=== PATIENT | male | born 1950 | race Caucasian/White ===

== ENCOUNTER 2025-02-17 14:28 | Inpatient (IN) | payer MEDICARE, SELFPAY ==
[2025-02-17] VITALS (9 sets, daily range): BP systolic 94–142; BP diastolic 65–80; PULSE 66–108; RESP 12–20; TEMP 36.6–36.9; O2SAT 95–100
--- NOTE | ~2025-02-17 | US_ITS ---
US renal BI 02/18/2025 08:51 Procedure: Realtime transabdominal ultrasound of the kidneys and bladder. Indication: Hydronephrosis Comparison: CT dated 02/17/2025 Findings: There is moderate right hydronephrosis. Renal echotexture is normal. There is a small hypoe choic structure mid pole of the right kidney measuring 11 mm, likely benign cysts. The left kidney is surgically absent. Right kidney measures 13.4 x 6.7 x 8 cm. Impression: 1: Enlarged right kidney with moderate hydronephrosis. Possible 11 mm cyst. Reviewed, dictated and finalized at location B. Impression: 1: Enlarged right kidney with moderate hydronephrosis. Possible 11 mm cyst.
--- NOTE | ~2025-02-17 | XR_ITS ---
EXAMINATION: XR chest 2V 02/17/2025 16:43 INDICATION: Fever and chills. PROCEDURE: 2 view chest COMPARISON: No prior studies for comparison. FINDINGS: The lungs are clear. The cardiomediastinal silhouette is within normal limits. There are no pleural effusions. There is no pneumothorax suspected. IMPRESSION: 1: NO ACUTE CARDIOPULMONARY DISEASE. Reviewed, dictated and finalized at location B.
--- NOTE | ~2025-02-17 | CT_ITS ---
CLINICAL INDICATION: Repeat assessment for hydronephrosis, detected on CT examination dated 02/17/2025 at 6:33 PM. COMPARISON: Renal ultrasound performed [address] of the chest abdomen and pelvis performed 36 hours earlier.. TECHNIQUE: Multiple contiguous axial images of the abdomen and pelvis were performed without the admi nistration of intravenous contrast The dose-length product (DLP) was 401.73 mGy-cm. Automated exposure control and iterative reconstruction technique were employed. FINDINGS/OBSERVATIONS: Visualized lower thorax: Interval development of small bilateral pleural effusions, right greater than left with adjacent comp ressive atelectasis. The bilateral lung bases are otherwise clear. The heart is of normal size, without pericardial effusion. Small hiatal hernia is present. Liver: The liver demonstrates homogeneous attenuation and is not enlarged measuring 14 cm in longitudinal di mension. Gallbladder and biliary system: The gallbladder is only minimally distended, and otherwise unremarkable. Pancreas: Limited evaluation of the pancreas secondary to the lack of intravenous contrast. Spleen: The spleen demonstrates homogeneous attenuation and is enlarged measuring 13 cm in longitudinal dimen ethan. Kidneys: Redemonstration of moderate right-sided hydroureteronephrosis, unchanged from 36 hours earlier withou t a discrete source of obstruction detected. The bladder is decompressed with a Uriarte catheter, limiting its evaluation. A moderate amount of presacral induration is present, possibly the source of patient's distal uretera l obstruction. The left kidney is absent. Adrenal glands: Unremarkable. Gastrointestinal tract: The colon is surgically absent. Appendix: Surgically absent. Vasculature: Unremarkable. Lymph nodes: Limited evaluation without intravenous contrast. Pelvic structures:As above. The prostate gland is either surgically absent or not enlarged. Body wall and musculoskeletal: Significant degenerative disease within the lumbosacral spine with osteophyte formation, disc space narrowing, ankylosis and vacuum phenomena. Small bowel stoma within the lower abdomen, to the left of midline. [employer] for a pain device identified within the left hemipelvis. Multiple clips along the anterior abdominal wall and to the right of midline suggesting prior anterio r abdominal wall reconstruction. IMPRESSION: Redemonstration of significant right-sided hydroureteronephrosis with induration at the level of the bladder in the presacral space with extension anteriorly, possibly the source of patient's obstructio n. Remainder of the examination is grossly unchanged from previous study performed 36 and 24 hours earli er. Reviewed, dictated and finalized at location A. IMPRESSION: Redemonstration of significant right-sided hydroureteronephrosis with induratio n at the level of the bladder in the presacral space with extension anteriorly, possibly the source of patient's obstruction. Remainder of the examination is grossly unchanged from previous study performed 36 and 24 hours earlier.
--- NOTE | ~2025-02-17 | CT_ITS ---
CLINICAL INDICATION: Acute renal failure, transaminitis, leukocytosis COMPARISON: None. TECHNIQUE: Multiple contiguous axial images of the chest, abdomen and pelvis were performed without t he administration of intravenous contrast The dose-length product (DLP) was 465.72 mGy-cm. Automated exposure control and iterative reconstruction technique were employed. FINDINGS/OBSERVATIONS: LUNG: The lungs are clear. MEDIASTINUM: Limited evaluation without intravenous contrast. HEART: The heart is of normal size, without pericardial effusion. SOFT TISSUES OF THE CHEST: Unremarkable. Liver: The liver demonstrates homogeneous attenuation and is not enlarged measuring 14 cm in longitudinal di mension. Gallbladder and biliary system: The gallbladder is only minimally distended, and otherwise unremarkable. Pancreas: Limited evaluation of the pancreas secondary to the lack of intravenous contrast. Spleen: The spleen demonstrates homogeneous attenuation and is not enlarged measuring 13 cm in longitudinal d imension. Kidneys: The left kidney is surgically absent. Significant right-sided hydroureteronephrosis extending to the bladder without an obstructing stone i dentified. The bladder is significantly decompressed with surrounding inflammatory change. Adrenal glands: Unremarkable. Gastrointestinal tract: The colon is surgically absent. Appendix: Surgically absent. Vasculature: Unremarkable. Lymph nodes: Limited evaluation without intravenous contrast. Pelvic structures: As above. Body wall and musculoskeletal: Significant degenerative disease within the lumbosacral spine with osteophyte formation, disc space n arrowing, ankylosis and vacuum phenomena. Small bowel stoma to the left of midline. IMPRESSION: Significant right-sided hydroureteronephrosis without an obstructing stone visualized. Reviewed, dictated and finalized at location A. IMPRESSION: Significant right-sided hydroureteronephrosis without an obstructing stone visu alized.
--- NOTE | ~2025-02-17 | XR_ITS ---
INTRAOPERATIVE FLUOROSCOPY: CLINICAL HISTORY: 74 years old Male; STONE PROCEDURE COMMENTS: Limited intraoperative fluoroscopy of the retroperitoneum and pelvis was performe d. CUMULATIVE DOSE: 27 mGy FLUOROSCOPY TIME: 82 seconds FINDINGS/IMPRESSION: Please refer to operative note for further details. Reviewed, dictated and finalized at location A.
--- OUTSIDE RECORDS SUMMARY | 2025-02-17 14:46 | XMS_ITS | Encounter Summary ---
Author Organization [facility] Healthcare Address [address] [place] [address] Care Team Providers Care Carpenter Prototype Name Role Phone Justin Avery MD Unavailable [phone] Benton Loyd MD Primary Care Provider [phone] Deng Fagan MD Unavailable [phone] Padmini Gonzalez MD Unavailable [phone] Nathaniel Merchant MD Unavailable [phone] Encounter Details Date Type Department Care Team (Late st Contact Info) Description 02/09/2025 Results Follow-Up [facility] Medical Group Convenient Care at [address] [address] Jackson Childers NP [address] [place] [address] [address] [place] [address] Social History Tobacco Use Types Packs/Day Years Used Date Smoking Tobacco: Never Smokeless Tobacco: Never Alcohol Use Standard Drinks/Week Comments Yes 1 (1 standard drink = 0.6 oz pur e alcohol) weekly AUDIT-C Answer Date Recorded Q1: How often do you have a drink containing alc ohol? Monthly or less 08/13/2022 Q2: How many drinks containi ng alcohol do you have on a typical day when you are drinking? 1 or 2 08/13/2022 Q3: How often do you have si x or more drinks on one occasion? 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 Pt verbalized understanding. * Result Encounter Note - Deysi Medeiros LPN - 02/13/2025 5:33 PM CDT LVM for pt to return call to clinic to notify them of labs results. * Result Encounter Note - Jackson Childers NP - 02/09/2025 7:53 PM CDT Please notify patient that urine culture was negative. Patient can stop taking antibiotics if they were prescribed at the time of visit. If s/s are still present patient should follow up PCP. documented in this encounter Plan of Treatment Not on file documented as of this encounter Visit Diagnoses Not on filedocumented in this encounter Care Teams Carpenter Prototype Relationship Specialty Start Date End Date Benton Loyd MD [address] [place], [place] [address] PCP - General Internal Medicine 08/24/20 Justin Avery MD Surgeon Colon and Rectal Surgery 10/18/19 Deng Fagan MD [address] [place] [address] Consulting Physician Urology 10/25/20 Padmini Gonzalez MD [address] [address] Consulting Physician Urology 11/09/22 Nathaniel Merchant MD 1 [facility] [place] [address] Consulting Physician Gastroenterology 11/09/22 documented as of this encounter
--- OUTSIDE RECORDS SUMMARY | 2025-02-17 14:46 | XMS_ITS | Clinical Summary ---
Author Organization [facility] Address [address] [place] [address] Care Team Providers Care Front Worker Name Role Phone Unavailable Primary Care Provider Unavailabl e Social History Tobacco Use Types Packs/Day Years Used Date Smoking Tobacco: Never Assessed Sex and Gender Information Value Date Recorded Sex Assigned at Not on file Legal Sex Male 4:35 PM CDT Gender Identity Not on file Sexual Orientation Not on file Plan of Treatment Health Maintenance Due Date Last Done Comments Colorectal Cancer Screening Colonoscopy (10 Years) 1950 Hepatitis C 1968 DTaP, Tdap and Td Vaccines ( 1 - Tdap) 1969 Zoster Vaccines (1 of 2) 2000 Pneumococcal Vaccine: 65+ Ye ars (1 of 1 - PCV) 2015 COVID-19 Vaccine ( - 2023-2 5 season) 2024 Influenza Adult (#1) 2024 RSV Immunization or 60+ Years (1 - 1-dose 75+ series) 2025 Meningococcal B Vaccine Aged Out No l onger eligible based on patient's age to complete this topic Meningococcal Vaccine Aged Out No nick raegan eligible based on patient's age to complete this topic RSV Immunizations Under 20 Months Aged Out No longer eligible based on patient's age to complete this topic
--- OUTSIDE RECORDS SUMMARY | 2025-02-17 14:46 | XMS_ITS | Clinical Summary ---
Author Organization [facility] Address [address] [place] [address] Care Team Providers Care Costume Design Teacher Name Role Phone Justin Avery MD Unavailable Benton Loyd MD Primary Care Provider [phone] Deng Fagan MD Unavailable Padmini Gonzalez MD Unavailable [phone] Nathaniel Merchant MD Unavailable Allergies Active Allergy Reactions Criticality Noted Date Comments Unclassified Drug Unknown,Other (See comments) Low 08/24/2023 due to patient only having one kidney Medications amLODIPine (NORVASC) 10 mg tabletIndicati ons:hypertensi on Take 1 tablet (10 mg total) by mouth every morning 3 09/18/20 18 Active atorvastatin (LIPITOR) 20 mg tabletIndicati ons:hyperlipid emia Take 1 tablet (20 mg total) by mouth every morning 2 07/26/20 18 Active loperamide (IMODIUM) 2 mg capsuleIndicat ions:diarrhea, ileostomy Take 2 capsules (4 mg total) by mouth 2 (two) times a day 05/13/20 07 Active omeprazole (PriLOSEC) 20 mg capsuleIndicat ions:Stress Ulcer Prophylaxis,Tr eatment of Non-Bleeding Gastric Disorder,gerd Take 1 capsule (20 mg total) by mouth every morning 2 07/15/20 18 Active rOPINIRole (REQUIP) 3 mg tabletIndicati ons:Restless Legs Syndrome Take 1 tablet (3 mg total) by mouth nightly 01/22/20 10 Active JANUVIA 50 mg tabletIndicati ons:type 2 diabetes mellitus Take 1 tablet (50 mg total) by mouth every morning 1 07/26/20 18 Active cyanocobalamin (Vitamin B-12) 500 mcg tabletIndicati ons:Prevention of Vitamin B12 Deficiency Take 2 tablets (1,000 mcg total) by mouth every morning Active cholecalcifero l (VITAMIN D-3) 2,000 unit capsuleIndicat ions:Vitamin D Deficiency Take 0.5 capsules (1,000 Units total) by mouth every morning 01/22/20 10 Active NU-MAG 71.5 mg tablet,delayed release (DR/EC)Indicat ions:hypomagne semia Take 1 tablet by mouth every morning 0 01/10/20 19 Active irbesartan (AVAPRO) 75 mg tabletIndicati ons:hypertensi on Take 1 tablet (75 mg total) by mouth every morning 11/18/20 19 Active acetaminophen (TYLENOL) 500 mg tabletIndicati ons:Pain Take 2 tablets (1,000 mg total) by mouth every 6 (six) hours as needed for pain Active oxyCODONE (ROXICODONE) 5 mg immediate release tabletIndicati ons:Pain Take 1 tablet (5 mg total) by mouth every 4 (four) hours as needed for pain (second line) for up to 5 doses 5 tablet 08/13/20 22 Active senna (SENOKOT) 8.6 mg tablet Take 1 tablet by mouth daily as needed for constipation 30 tablet 08/13/20 22 Active Additional Information Patient not taking.Reported on 11/27/2024 mupirocin (BACTROBAN) 2 % ointmentIndica tions:Minor Bacterial Skin Infections Apply topically 3 (three) times a day 22 g 10/05/20 22 Active sulfamethoxazo le-trimethopri m (BACTRIM DS) 800-160 mg per tablet Take 1 tablet by mouth 2 (two) times a day for 3 days 6 tablet 02/09/20 25 025 Discontinued sulfamethoxazo le-trimethopri m (BACTRIM DS) 800-160 mg per tablet Take 1 tablet by mouth 2 (two) times a day for 5 days 10 tablet 03/12/ 025 Active Problems Problem Noted Date Diagnosed Date Stage 4 chronic kidney disease 01/01/2025 Urge urinary incontinence 06/04/2022 Overview (06/04/2022): Added automatically from request for surgery [id number] OAB (overactive bladder) 06/04/2022 Overview (06/04/2022): Added automatically from request for surgery [id number] 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 Overview (02/15/2020): Added automatically from request for surgery [id number] Ileostomy care 09/23/2017 History of malignant neoplasm of rectum 08/18/20 14 Crohn's disease of rectum 12/07/2009 Encounters Date Type Department Care Team Description 02/09/2025 Results Follow-Up [facility] Medical Group Convenient Care at [address] [address] Jackson Childers NP 02/08/2025 11:26 AM CDT - 02/08/2025 11:59 PM CDT Hospital Encounter [address] [address] Cystitis with hematuria Discharge Disposition: Discharge to home or self care 02/08/2025 8:45 AM CDT Office Visit [facility] Convenient Care at [address] [address] Radha Baca PA Cystitis with hematuria (Primary Dx) 12/13/2024 Telephone [facility] Surgery [address] [place] [address] [address] [place] [address] Shante Porter RMA Test Results 12/12/2024 1:45 PM NUMERICAL CONTROL LATHE OPERATOR Lab [facility] - Lab Collection [address] [place] [address] [address] [place] [address] History of malignant neoplasm of rectum 12/12/2024 12:45 PM NUMERICAL CONTROL LATHE OPERATOR Office Visit [facility] Surgery [address] [place] [address] [address] [place] [address] Justin Avery MD History of malignant neoplasm of rectum (Primary Dx); Stage 4 chronic kidney disease (HCC); 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); Crohn's disease of rectum without complication (HCC) 12/12/2024 9:40 AM NUMERICAL CONTROL LATHE OPERATOR Ancillary Procedure [facility] Imaging at [address] [phone] Acute cough 12/12/2024 9:30 AM NUMERICAL CONTROL LATHE OPERATOR Office Visit [facility] Convenient Care at [address] [phone] Shante Mcclure NP Acute cough (Primary Dx); Acute non-recurrent maxillary sinusitis 11/27/2024 8:00 AM NUMERICAL CONTROL LATHE OPERATOR Office Visit [facility] Convenient Care at [address] [address] Radha Baca PA Post-viral cough syndrome (Primary Dx) 11/20/2024 11:15 AM NUMERICAL CONTROL LATHE OPERATOR Office Visit [facility] Convenient Care at [address] [address] Tara Alonso NP Acute non-recurrent maxillary sinusitis (Primary Dx) from Last 3 Months Immunizations Immunization Administration Dates Next Due DTaP 02/24/2018 H1N1 Inj 08/30/2011 Influenza, Quadrivalent, Hig h Dose, Preservative Free, Intrr 08/29/2021,08/30/2020 Influenza, Trivalent, High D ose, Split, Preservative Free, Intramuscular 11/14/2019,08/27/2019,08/12/2018,09/22,09/18/2016,09/01/2016 Influenza, Trivalent, IM (MDV) 09/21/2017 Influenza, Trivalent, Preser vative Free, Intramuscular 08/30/2015,11/30/2008 Influenza, Unspecified 09/17/2022,2020,08/23/2020,08/27,08/13/2018 Pneumococcal Conjugate PCV 13 04/02/2015 Pneumococcal Polysaccharide PPV23 2018,04/14/2016,10/09/2014,08/30,04/02/2010,11/30/2007 Tdap 02/24/2018 Surgical History Surgery Date Site/Laterality Comments MA REVISION PRIOR HYPOSPADIAS REPAIR DSJ&EXC RCNSTJ Surg Penis Repair Of Hypospadias Cripple - 03/11/05 (Added by TW Conv) MA CYSTOURETHROSCOPY W/INTERNAL URETHROTOMY Cystoscopy With Internal Urethrotomy, Direct Vision - 03/30/07 (Added by TW Conv) MA CYSTOURETHROSCOPY W/STEROID INJECTION STRICTURE Cystoscopy For Urethral Stricture With Steroid Injection - 03/30/07 (Added by TW Conv) MA NJX RETROGRADE URETHROCSTOGRAPY Bladder Injection Procedure For Retrograde Cystourethrogram - 03/30/07 (Added by TW Conv) MA COLECTOMY TOT ABDL W/PROCTECTOMY W/ILEOSTOMY Total Proctocolectomy - 07/21/06 (Added by TW Conv) MA APPENDECTOMY 11/30/1964 - 11/29/1965 Appendectomy - (Added by TW Conv) MA COLCT TOT ABDL W/O PRCTECT W/ILEOST/ILEOPXTS 11/30/2005 - 11/29/2006 Total Abdominal Colectomy With Ileostomy - (Added by TW Conv) ILEOSTOMY Ileostomy Care - (Added by TW Conv) MA NEPHRECTOMY W/PRTL URETERECTOMY W/OPEN RIB RESCJ 11/30/2011 - 11/29/2012 Left Nephrectomy Left - pelvic kidney-----chronic pyelonephritis (Added by TW Conv) KNEE ARTHROPLASTY 11/30/2018 - 11/29/2019 Left MENISCUS SURGERY 11/30/2018 - 11/29/2019 Right SHOULDER ARTHROSCOPY 11/30/2019 - 11/29/2020 Right HYPOSPADIAS CORRECTION 11/30/1955 - 11/29/1956 WISDOM TOOTH EXTRACTION unsure of date Medical History Medical History Date Comments Personal history of malignan t neoplasm of rectum, rectosigmoid junction, and anus Rectal Cancer - (Added by TW Conv) Crohn's disease of large int estine without complication (HCC) Crohn's disease of rectum - (Added by TW Conv) Other specified personal ris k factors, not elsewhere classified History of bacterial food po isoning - 2012 (Added by TW Conv) Hypertension Hematuria Urinary incontinence Erectile dysfunction Kidney stone Diabetes mellitus (HCC) FHx: chemotherapy 2006 Hx of radiation therapy 2006 Family History Medical History Relation Name Comments Diabetes Father Family history of diabetes mellitus - (Added by TW Conv) Diabetes Mother Family history of diabetes mellitus - (Added by TW Conv) Heart attack Mother Family history of acute myocardial infarction - (Added by TW Conv) Diabetes type II Other 1 Type 2 Diab etes Mellitus - (Added by TW Conv) Heart disease Other 2 Heart Disease - (Added by TW Conv) Thyroid disease Other 3 Thyroid Diso rder - (Added by TW Conv) Inflammatory bowel disease Other 4 F amily history of inflammatory bowel disease - (Added by TW Conv) Anesthesia problems Neg Hx Relation Name Status Comments Father Mother Other 1 Other 2 Other 3 Other 4 Social History Tobacco Use Types Packs/Day Years Used Date Smoking Tobacco: Never Smokeless Tobacco: Never Tobacco Cessation:Counseling Given: Not Answered Alcohol Use Standard Drinks/Week Comments Yes 1 [...] on file Legal Sex Male 4:34 PM NUMERICAL CONTROL LATHE OPERATOR Gender Identity Not on file Sexual Orientation Not on file Obstetrics History Last Filed Vital Signs Vital Sign Reading Time Taken Comments Blood Pressure 104/62 02/08/2025 8:49 AM CDT Pulse 86 02/08/2025 8:49 AM CDT Temperature 36.4 C (97.6 F) 02/08/2025 8:49 AM CDT tylenol at 6 am Respiratory Rate 16 02/08/2025 8:49 AM CDT Oxygen Saturation 97% 02/08/2025 8:4 9 AM CDT Inhaled Oxygen Concentration - - Weight 80.7 kg (178 lb) 02/08/2025 8:49 AM CDT Height 175.3 cm (5' 9 ) 12/12/2024 12:0 8 PM NUMERICAL CONTROL LATHE OPERATOR Body Mass Index 26.29 12/12/2024 12:08 PM NUMERICAL CONTROL LATHE OPERATOR Plan of Treatment Health Maintenance Due Date Last Done Comments Colon Cancer Screening-Colonoscopy 1950 Depression Screening 1950 Hepatitis C Screening 1950 Hepatitis B Screening 1968 Zoster Vaccine (1 of 2) 2000 Well Visit 65+ 2015 Fall Risk Assessment 08/14/2023 08/14/2022 Covid-19 Vaccine (2023-2 5 season) 2024 05/05/2022, 10/02/2021, 01/29/2021, Additional history exists Influenza Vaccine (#1) 2024 , 09/06/2021, 08/29/2021, Additional history exists DTaP/Tdap/Td Vaccine (3 - Td or Tdap) 02/25/2028 02/24/2018, 02/24/2018 Pneumococcal vaccine 65+ Completed 019, 04/14/2016, 04/02/2015, Additional history exists Medical Devices Implanted Type Area Medical Support Assistant Device Identifier Shelf Expiration Date Model / Serial / Lot [employer] Generator Neurostimulator Bowel Bladder Recharge Free Interstim X [id number] - [id number] Implanted:Qty: 1 on 08/13/2022 by Padmini Gonzalez MD at [facility] Neurostimulator [employer] 9 [id number] / / [employer] Interstim 28cm Quadripolar Mri Nitrogen Operator Neurostimulator [id number] - Sna - [id number] Implanted:Qty: 1 on 07/30/2022 by Padmini Gonzalez MD at [facility] Other - see comments N/A: Back [employer] 12/19/2023 [id number] / NA / [id number] Description:Lower back Implant pause performed interstim [employer] Interstim 100cm Percutaneous Electrode Insulated Kit [id number] - Sna - [id number] Implanted:Qty: 1 on 07/30/2022 by Padmini Gonzalez MD at [facility] Other - see comments N/A: Back [employer] 04/25/2024 [id number] / NA / [id number] Description:Lower back Implant pause performed interstim Procedures Procedure Name Priority Date/Time Associated Diagnosis Comments URINE CULTURE Routine 02/08/2025 11:26 AM CDT Cystitis with hematuria POCT URINALYSIS DIPSTICK Routine 02/08/2025 8:47 AM CDT Cystitis with hematuria CEA Routine 12/12/2024 1:24 PM NUMERICAL CONTROL LATHE OPERATOR History of malignant neoplasm of rectum XR CHEST PA LATERAL 2 VIEWS Schedule SRAVANI, Read SRAVANI (Appt Today, Awaiting Results) 12/12/2024 9:52 AM NUMERICAL CONTROL LATHE OPERATOR Acute cough POC INFLUENZA A/B, COVID-19 ANTIGEN Routine 12/12/2024 9:31 AM NUMERICAL CONTROL LATHE OPERATOR Acute non-recurrent maxillary sinusitis POCT RAPID STREP Routine 12/12/2024 9:20 AM NUMERICAL CONTROL LATHE OPERATOR Acute non-recurrent maxillary sinusitis from Last 3 Months Results * Urine culture Urine, clean voided (02/08/2025 11:26 AM CDT) Report Final Report: Less than 100,000 colonies/mL (clinically insignificant growth based on current clinical standards) Comment:Testing performed by : [facility], [address] [place] [address] Organism (CLINICALLY INSIGNIFICANT GROWTH JUSTINE Urine, clean voided 02/08/2025 11:26 AM CDT 02/08/2025 6:04 PM CDT Narrative JUSTINE CARSON - 02/09/2025 7:50 PM CDT Testing performed by [facility] Microbiology Laboratory ([phone]) Shante Mcclure NP LAB MICROBIOLOGY - GENERAL ORDERABLES Final Result JUSTINE [address] Department [place] [address] * (ABNORMAL) POCT urinalysis dipstick (02/08/2025 8:47 AM CDT) Color, Urine, POC Dark Yellow Clarity, ur, POC Cloudy(A) Clear Glucose, ur, POC Negative Negative MG/DL Bilirubin, ur, POC Negative Negative, Small, Moderate, Large Ketones, ur, POC Negative Negative Specific [place], POC 1.025 1.003 - 1.030 Blood, ur, POC Large(A) Negative pH, ur, POC 5.5 5.0 - 8.0 Protein, ur, POC 300.(A) Negative Urobilinogen, urine, POC 0.2 0.2 - 1.0 mg/dL Nitrite, ur, POC Negative Negative Leukocytes, ur, POC Small(A) Negative Lot Number [id number] Urine 02/08/2025 8:47 AM CDT us Shante Mcclure NP POINT OF CARE TEST ORDERAB LES Final Result * CEA (12/12/2024 1:24 PM NUMERICAL CONTROL LATHE OPERATOR) CEA 0.8 <=5.0 ng/mL Comment: Interpretive Data: Reference Range: Non-Smokers: 0.0 5.0 ng/mL Smokers: 0.0 6.5 ng/mL The Juliet CEA assay procedure was used. Results from different manufacturers or methods may not be comparable. Serial testing should be performed using the same method. Current interpretive data was last revised 2022. Blood 12/12/2024 1:24 PM NUMERICAL CONTROL LATHE OPERATOR 12/12/2024 2:00 PM NUMERICAL CONTROL LATHE OPERATOR us Justin Avery MD LAB BLOOD ORDERABLES Final R esult [facility] Department [place] [address] * XR Chest Pa Lateral 2 Views (12/12/2024 9:52 AM NUMERICAL CONTROL LATHE OPERATOR) Anatomical Region Laterality Modality Body, Chest N/A Digital Radiogra phy 12/12/2024 1:02 PM NUMERICAL CONTROL LATHE OPERATOR Narrative 12/12/2024 1:03 PM NUMERICAL CONTROL LATHE OPERATOR EXAM DESCRIPTION: XR CHEST PA LATERAL 2 VIEWS REASON FOR STUDY: cough Pt complains of cough for six weeks. No surgery to heart, lungs, or chest. Non-smoker. TECHNIQUE: Two views COMPARISON: 07/30/2006 FINDINGS: Heart size and vascularity appear normal. Aortic arch well-defined on the left. Lungs are well expanded without consolidation, effusion or pneumothorax. Bony hypertrophic changes obscures the apices. Moderate thoracolumbar scoliosis and degenerative changes thoracic spine. IMPRESSION: No acute findings. THIS IS AN ELECTRONICALLY VERIFIED FINAL REPORT 12/12/2024 1:03 PM - Electronically signed by Pro Marcus M.D. RB T: Report ID: [id number] Reading Location: [id number] Procedure Note Pro Marcus MD - 12/12/2024 EXAM DESCRIPTION: XR CHEST PA LATERAL 2 VIEWS REASON FOR STUDY: cough Pt complains of cough for six weeks. No surgery to heart, lungs, or chest. Non-smoker. TECHNIQUE: Two views COMPARISON: 07/30/2006 FINDINGS: Heart size and vascularity appear normal. Aortic arch well-defined on the left. Lungs are well expanded without consolidation, effusion or pneumothorax. Bony hypertrophic changes obscures the apices. Moderate thoracolumbar scoliosis and degenerative changes thoracic spine. IMPRESSION: No acute findings. THIS IS AN ELECTRONICALLY VERIFIED FINAL REPORT 12/12/2024 1:03 PM - Electronically signed by Pro Marcus M.D. RB T: Report ID: [id number] Reading Location: [place] [address] Shante Mcclure NP IMG XR PROCEDURES Final Re sult * POC Influenza A/B, COVID-19 antigen (12/12/2024 9:31 AM NUMERICAL CONTROL LATHE OPERATOR) Influenza A Ag, POC Negative Negative [facility] Influenza B Ag, POC Negative Negative [facility] COVID-19 Ag POC Presumptive Negative Presumptive Negative, Invalid [facility] Nasal 12/12/2024 9:31 AM NUMERICAL CONTROL LATHE OPERATOR Shante Mcclure NP POINT OF CARE TEST ORDERAB LES Final Result [facility] [address] * POCT rapid strep A (12/12/2024 9:20 AM NUMERICAL CONTROL LATHE OPERATOR) Rapid Strep A, POC Negative Negative Swab 12/12/2024 9:20 AM NUMERICAL CONTROL LATHE OPERATOR Shante Mcclure NP POINT OF CARE TEST ORDERAB LES Final Result from Last 3 Months Insurance [facility] [employer] [employer] Advance Directives For more information, please contact: [phone] Documents on File Type Date Recorded Patient Display Designer Expl anation ADVANCE DIRECTIVE 10/02/2020 11:54 AM Marcos r of Logistics Clerk-Medical * Full Code (Latest Code Status on File) Date Activated Date Inactivated Comments 08/13/2022 11:15 AM 08/14/2022 1:47 PM * Full Code Date Activated Date Inactivated Comments 11/11/2021 4:15 PM 11/11/2021 9:54 PM Care Teams Costume Design Teacher Relationship Specialty Start Date End Date Benton Loyd MD [address] [facility] [place] [address] PCP - General Internal Medicine 08/24/20 Justin Avery MD Surgeon Colon and Rectal Surgery 10/18/19 Deng Fagan MD [address] [place], [place] [address] Consulting Physician Urology 10/25/20 Padmini Gonzalez MD [address] [place] [id number] Consulting Physician Urology 11/09/22 Nathaniel Merchant MD 1 [facility] DIV IM GASTROENTEROLOGY [place], [place] [id number] Consulting Physician Gastroenterology 11/09/22
--- OUTSIDE RECORDS SUMMARY | 2025-02-17 14:47 | XMS_ITS | Referral Summary ---
Author Organization [facility] Address [address] [place] [address] Care Team Providers Care User Experience Researcher Name Role Phone Justin Avery MD Unavailable Benton Loyd MD Primary Care Provider [phone] Deng Fagan MD Unavailable Padmini Gonzalez MD Unavailable [phone] Nathaniel Merchant MD Unavailable Encounters Date Type Department Care Team Description 02/09/2025 Results Follow-Up [facility] at [address] [address] Jackson Childers NP 02/08/2025 11:26 AM CDT - 02/08/2025 11:59 PM CDT Hospital Encounter [address] [address] Cystitis with hematuria Discharge Disposition: Discharge to home or self care 02/08/2025 8:45 AM CDT Office Visit [facility] at [address] [phone] Radha Baca PA Cystitis with hematuria (Primary Dx) 12/13/2024 Telephone [facility] Floor [address] [place] [address] Shante Porter RMA Test Results 12/12/2024 1:45 PM TAKE OFF MAN Lab [facility] [place] - Lab Collection [address] [facility] Floor 5 [place] [address] History of malignant neoplasm of rectum 12/12/2024 9:40 AM TAKE OFF MAN Ancillary Procedure [facility] at [address] [phone] Acute cough 12/12/2024 9:30 AM TAKE OFF MAN Office Visit [facility] at [address] [address] Shante Mcclure NP Acute cough (Primary Dx); Acute non-recurrent maxillary sinusitis 12/12/2024 12:45 PM TAKE OFF MAN Office Visit [facility] Surgery [address] [place] [address] Floor 5 [place] [id number] Justin Avery MD History of malignant neoplasm of rectum (Primary Dx); Stage 4 chronic kidney disease (HCC); 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); Crohn's disease of rectum without complication (HCC) 11/27/2024 8:00 AM TAKE OFF MAN Office Visit [facility] at [address] [address] Radha Baca PA Post-viral cough syndrome (Primary Dx) 11/20/2024 11:15 AM TAKE OFF MAN Office Visit [facility] at [address] [address] Tara Alonso NP Acute non-recurrent maxillary sinusitis (Primary Dx) from Last 3 Months Allergies Active Allergy Reactions Criticality Noted Date [...] a day for 5 days 10 tablet 02/09/20 25 025 Active Problems Problem Noted Date Diagnosed Date Stage 4 chronic kidney disease 01/01/2025 Urge urinary incontinence 06/04/2022 Overview (06/04/2022): Added automatically from request for surgery [id number] OAB (overactive bladder) 06/04/2022 Overview (06/04/2022): Added automatically from request for surgery [id number] 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 Overview (02/15/2020): Added automatically from request for surgery [id number] Ileostomy care 09/23/2017 History of malignant neoplasm of rectum 08/18/20 14 Crohn's disease of rectum 12/07/2009 Immunizations Immunization Administration Dates Next Due DTaP 02/24/2018 H1N1 Inj 08/30/2011 Influenza, Quadrivalent, Hig h Dose, Preservative Free, Intrr 08/29/2021,08/30/2020 Influenza, Trivalent, High D ose, Split, Preservative Free, Intramuscular 11/14/2019,08/27/2019,08/12/2018,09/22,09/18/2016,09/01/2016 Influenza, Trivalent, IM (MDV) 09/21/2017 Influenza, Trivalent, Preser vative Free, Intramuscular 08/30/2015,11/30/2008 Influenza, Unspecified 09/17/2022,2020,08/23/2020,08/27,08/13/2018 Pneumococcal Conjugate PCV 13 04/02/2015 Pneumococcal Polysaccharide PPV23 2018,04/14/2016,10/09/2014,08/30,04/02/2010,11/30/2007 Tdap 02/24/2018 Social History Tobacco Use Types Packs/Day Years [...] on file Legal Sex Male 4:34 PM TAKE OFF MAN Gender Identity Not on file Sexual Orientation Not on file Last Filed Vital Signs Vital Sign Reading [...] (5' 9 ) 12/12/2024 12:0 8 PM TAKE OFF MAN Body Mass Index 26.29 12/12/2024 12:08 PM TAKE OFF MAN Plan of Treatment Not on file Medical Devices Implanted Type Area Creative Writing English Professor Device Identifier Shelf Expiration Date Model / Serial / Lot [employer] Generator Neurostimulator Bowel Bladder Recharge Free Interstim X [id number] - [id number] Implanted:Qty: 1 on 08/13/2022 by Padmini Gonzalez MD at [facility] Neurostimulator [employer] 9 [id number] / / Med[employer] Interstim 28cm Quadripolar Mri Marine Farmer Neurostimulator [id number] - Sna - [id number] Implanted:Qty: 1 on 07/30/2022 by Padmini Gonzalez MD at [facility] Other - see comments N/A: Back [employer] Inc 12/19/2023 [id number] / NA / [id number] Description:Lower back Implant pause performed interstim Med[employer] Inc Interstim 100cm Percutaneous Electrode Insulated Kit [id number] - Sna - [id number] Implanted:Qty: 1 on 07/30/2022 by Padmini Gonzalez MD at [facility] Other - see comments N/A: Back [employer] 04/25/2024 [id number] / NA / [id number] Description:Lower back Implant pause performed interstim Procedures Procedure Name Priority Date/Time Associated Diagnosis Comments URINE CULTURE Routine 02/08/2025 11:26 AM CDT Cystitis with hematuria POCT URINALYSIS DIPSTICK Routine 02/08/2025 8:47 AM CDT Cystitis with hematuria CEA Routine 12/12/2024 1:24 PM TAKE OFF MAN History of malignant neoplasm of rectum XR CHEST PA LATERAL 2 VIEWS Schedule SRAVANI, Read SRAVANI (Appt Today, Awaiting Results) 12/12/2024 9:52 AM TAKE OFF MAN Acute cough POC INFLUENZA A/B, COVID-19 ANTIGEN Routine 12/12/2024 9:31 AM TAKE OFF MAN Acute non-recurrent maxillary sinusitis POCT RAPID STREP Routine 12/12/2024 9:20 AM TAKE OFF MAN Acute non-recurrent maxillary sinusitis from Last 3 Months Results * Urine culture Urine, clean voided (02/08/2025 11:26 AM CDT) Report Final Report: Less than 100,000 colonies/mL (clinically insignificant growth based on current clinical standards) Comment:Testing performed by : [facility], [address] [facility] [place]., [address] Organism (CLINICALLY INSIGNIFICANT GROWTH JUSTINE Urine, clean voided 02/08/2025 11:26 AM CDT 02/08/2025 6:04 PM CDT Narrative CERNER - 02/09/2025 7:50 PM CDT Testing performed by [facility] Microbiology Laboratory ([phone]) Shante Mcclure NP LAB MICROBIOLOGY - GENERAL ORDERABLES Final Result JUSTINE CARSON [address] Department [place] [address] * (ABNORMAL) POCT urinalysis dipstick (02/08/2025 8:47 AM CDT) Color, Urine, POC Dark Yellow Clarity, ur, POC Cloudy(A) Clear Glucose, ur, POC Negative Negative MG/DL Bilirubin, ur, POC Negative Negative, Small, Moderate, Large Ketones, ur, POC Negative Negative Specific Mereta, POC 1.025 1.003 - 1.030 Blood, ur, POC Large(A) Negative pH, ur, POC 5.5 5.0 - 8.0 Protein, ur, POC 300.(A) Negative Urobilinogen, urine, POC 0.2 0.2 - 1.0 mg/dL Nitrite, ur, POC Negative Negative Leukocytes, ur, POC Small(A) Negative Lot Number [id number] Urine 02/08/2025 8:47 AM CDT hSante Mcclure NP POINT OF CARE TEST ORDERAB LES Final Result * CEA (12/12/2024 1:24 PM TAKE OFF MAN) CEA 0.8 <=5.0 ng/mL Comment: Interpretive Data: Reference Range: Non-Smokers: 0.0 5.0 ng/mL Smokers: 0.0 6.5 ng/mL The Juliet CEA assay procedure was used. Results from different manufacturers or methods may not be comparable. Serial testing should be performed using the same method. Current interpretive data was last revised 2022. Blood 12/12/2024 1:24 PM TAKE OFF MAN 12/12/2024 2:00 PM TAKE OFF MAN Justin Avery MD LAB BLOOD ORDERABLES Final R esult [facility]ERNER [facility] Department [place] [address] * XR Chest Pa Lateral 2 Views (12/12/2024 9:52 AM TAKE OFF MAN) Anatomical Region Laterality Modality Body, Chest N/A Digital Radiogra phy 12/12/2024 1:02 PM TAKE OFF MAN Narrative 12/12/2024 1:03 PM TAKE OFF MAN EXAM DESCRIPTION: XR CHEST PA LATERAL 2 [...] 1:03 PM - Electronically signed by Pro KENNY T: Report ID: [id number] Reading Location: [id number] Procedure Note Pro Marcus MD - 12/12/2024 [...] Pro Marcus M.D. RB T: Report ID: [id number] Reading Location: [id number] Shante B. Mcclure PLATEN PRESS OPERATOR IMG XR PROCEDURES Final Re sult * POC Influenza A/B, COVID-19 antigen (12/12/2024 9:31 AM TAKE OFF MAN) Influenza A Ag, POC Negative Negative [facility] Influenza B Ag, POC Negative Negative [facility] COVID-19 Ag POC Presumptive Negative Presumptive Negative, Invalid [facility] Nasal 12/12/2024 9:31 AM TAKE OFF MAN Shante Mcclure PLATEN PRESS OPERATOR POINT OF CARE TEST ORDERAB LES Final Result Performing Organization Address City/State/[facility] Co de Phone Number [facility] [address] [place] [address] * POCT rapid strep A (12/12/2024 9:20 AM TAKE OFF MAN) Rapid Strep A, POC Negative Negative Swab 12/12/2024 9:20 AM TAKE OFF MAN Shante Mcclure PLATEN PRESS OPERATOR POINT OF CARE TEST ORDERAB LES Final Result from Last 3 Months Insurance [facility] MEDICARE [facility] MEDICARE [employer] MEDICARE Advance Directives For more information, please contact: [phone] Documents on File Type Date Recorded Patient Project Control Manager Expl anation ADVANCE DIRECTIVE 10/02/2020 11:54 AM Marcos r of Rope Making Machine Operator-Medical * Full Code (Latest Code Status on File) Date Activated Date Inactivated Comments 08/13/2022 11:15 AM 08/14/2022 1:47 PM * Full Code Date Activated Date Inactivated Comments 11/11/2021 4:15 PM 11/11/2021 9:54 PM Care Teams User Experience Researcher Relationship Specialty Start Date End Date Benton Loyd MD [address] [facility] [address] [place] [address] PCP - General Internal Medicine 08/24/20 Justin Avery MD Surgeon Colon and Rectal Surgery 10/18/19 Deng Fagan MD [address] [facility] [address] [place] [address] Consulting Physician Urology 10/25/20 [place] [address] [place] [address] Consulting Physician Urology 11/09/22 Nathaniel Merchant MD [address] [facility] [place] [address] Consulting Physician Gastroenterology 11/09/22
--- OUTSIDE RECORDS SUMMARY | 2025-02-17 14:47 | XMS_ITS | Patient Health Record ---
Author Organization [facility] Address [address] [address] Care Team Providers Care Coating Machine Helper Name Role Phone Benton Loyd Primary Care Provider Unavaila wisam Oakes MD, John Unavailable [phone] ALLERGIES No Known Allergies REASON FOR REFERRAL No Information MEDICATIONS Medication SIG (Take, Route, Fr equency, Duration) Notes Start Date End Date Status Januvia Active Imodium A-D Active Irbesartan Active Vitamin B 12 Active oxyBUTYnin Active amLODIPine Besylate Active Cephalexin 500 MG 1 capsule Orally Fou r times a day for 7 days 03/03/2022 Active Atorvastatin Calcium Active Tamsulosin HCl Unkno wn Vitamin D3 Active Acetaminophen Active Requip Active Omeprazole Active Magnesium Active IMMUNIZATIONS Vaccine Route Administration Date Status Comme nts Influenza Unknown 09/01/2016 Administered pneumoccocal Unknown 10/09/2014 Administered Influenza Unknown 08/13/2018 Administered Influenza Unknown 11/14/2019 Administered pneumoccocal Unknown 11/14/2019 Administered pneumoccocal Unknown 11/02/2018 Refused Influenza Unknown 08/26/2019 Refused Influenza Unknown 06/05/2021 Refused pneumoccocal Unknown 06/05/2021 Refused SOCIAL HISTORY Tobacco Use: Social History Observation Description Date Details (start date - stop date) Never Smoker NA - NA Sex Assigned At : Social History Observation Description Sex Assigned At Unknown Tobacco Use: Question Answer Notes Patient is a: nonsmoker Alcohol screening: Question Answer Notes Did you have a drink contain ing alcohol in the past year? Yes How often did you have a dri nk containing alcohol in the past year? Monthly or less (1 point) How many drinks did you have on a typical day when you were drinking in the past year? 1 or 2 (0 points) Points 1 Interpretation Negative PROBLEMS Problem Type ICD Code Onset Dates Problem Status W/U Status Risk SNOMED Code Notes Problem Encounter for follow-up examination after completed treatment for conditions other than malignant neoplasm (Z09) Active confirmed 309664467 Problem Primary osteoarthritis, left ankle and foot (M19.072) 06/05/20 19 Active confirmed 255333713 Problem Other meniscus derangements, other medial meniscus, right knee (M23.331) Active confirmed 629919051 Problem Other articular cartilage disorders, right shoulder (M24.111) Active confirmed 348526031 Problem Low back pain (M54.5) Active confirmed Low back pain (650928572) Problem Olecranon bursitis, right elbow (M70.21) 08/19/20 21 Active confirmed 650281279188709 Problem Impingement syndrome of right shoulder (M75.41) Active confirmed 534245744297780 Problem Other shoulder lesions, left shoulder (M75.82) Active confirmed 607122048 Problem Other specified soft tissue disorders (M79.89) Active confirmed 36994052 Problem Strain of muscle(s) and tendon(s) of the rotator cuff of right shoulder, initial encounter (S46.011A) Active confirmed 003942099 Problem Strain of muscle(s) and tendon(s) of the rotator cuff of right shoulder, subsequent encounter (S46.011D) Active confirmed 852544391 Problem Strain of muscle(s) and tendon(s) of the rotator cuff of left shoulder, initial encounter (S46.012A) Active confirmed 33384146 Problem Instability of internal left knee prosthesis, 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) Active confirmed 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) Problem Activity, digging, shoveling and raking (Y93.H1) Active confirmed 134940366 Problem Aftercare following joint replacement surgery (Z47.1) Active confirmed History of musculoskeletal operation (895079117) Problem Encounter for other orthopedic aftercare (Z47.89) Active confirmed 656860108 Problem Presence of left artificial knee joint (Z96.652) Active confirmed Artificial k nee joint present (993147348568) Problem Olecranon bursitis of left elbow (M70.22) Active confirmed Inflammation of bursa of olecranon (719433719) Problem Knee pain, right (M25.561) Active confirmed Pain of right k nee region (finding) (473854120566221) Problem Localized primary osteoarthritis of left lower leg (M17.12) Active confirmed 476497998 Problem Overexertion from strenuous movement or load, initial encounter (X50.0XXA) Active confirmed 85102419 Problem Left knee pain, unspecified chronicity (M25.562) Active confirmed 70196527 Problem Right rotator cuff tendinitis (M75.81) Active confirmed 91246021498397331 Problem Encounter for removal of jerry (Z48.02) Active confirmed Removal of suture (82941485) PLAN OF TREATMENT No Information Insurance Providers Payer Name Payer Address Payer Phone Subscriber Number Group Number Insured Name Patient Relationship to Insured Coverage Start Date Coverage End Date [employer] Medicare Advantage PPO [address] [address] [place] [address] [id number] Ganesh Vásquez Self - patient is the insured MEDICAL (GENERAL) HISTORY Medical History History ICD Code colon cancer Arthritis hypertension high cholesterol kidney stones acid reflux irritable bowel syndrome urologic problems prediabetic diabetes Surgical History Surgery Date(Month/Year) ileostomy nephrectomy several urology right knee arthroscopy 05-04-19 (EFS) left TKR (EFS) 07/20/19 shoulder arthroscopy, right w/ RCR and S AD (BMW) 07/10/20 rotator cuff tear repair
--- OUTSIDE RECORDS SUMMARY | 2025-02-17 14:47 | XMS_ITS | Encounter Summary ---
Author Organization [facility] Address [address] [place] [address] Phone Care Team Providers Care Hereditary Cancer Program Coordinator Name Role Phone Justin Avery MD Unavailable [phone] Benton Loyd MD Primary Care Provider [phone] Deng Fagan MD Unavailable [phone] Padmini Gonzalez MD Unavailable [phone] Nathaniel Merchant MD Unavailable [phone] Encounter Details Date Type Department Care Team (Late st Contact Info) Description 10/01/2022 Telephone [facility] Department of Surgery, Section of Colon and Rectal Surgery [address] [facility] 12th Floor, [place] [address] Sheyla Rhoades Social History Tobacco Use Types Packs/Day Years [...] on file Legal Sex Male 4:34 PM CHART READER Gender Identity Not on file Sexual Orientation Not on file documented as of this encounter Plan of Treatment Not on file documented as of this encounter Visit Diagnoses Not on filedocumented in this encounter Additional Health Concerns Infection Onset Date Last Indicated Resolved Time COVID: Suspected 12/12/2024 12/12/2024 12/12/2024 9:32 AM CHART READER documented as of this encounter Care Teams Hereditary Cancer Program Coordinator Relationship Specialty Start Date End Date Benton Loyd MD [address] [facility] [address] [address] PCP - General Internal Medicine 08/24/20 Justin Avery MD Surgeon Colon and Rectal Surgery 10/18/19 Deng Fagan MD [address] [facility] [address] [address] Consulting Physician Urology 10/25/20 [place] [address] [place] [address] Consulting Physician Urology 11/09/22 Nathaniel Merchant MD [address] [facility] [place] [address] Consulting Physician Gastroenterology 11/09/22 documented as of this encounter
--- NOTE | 2025-02-17 16:15 | ED.FEVER ---
HPI - Fever General Chief Complaint: Urogenital-Male <Mylene Schneider PA-C - Last Filed: 02/17/25 16:23> Stated Complaint: Chills, fever, vomiting--had recent UTI <Mylene Schneider PA-C - Last Filed: 02/17/25 16:23> Time Seen by Provider: 02/17/25 17:27 <Mylene Schneider PA-C - Last Filed: 02/17/25 16:23> Focused HPI: 74 y/o M with a PMHx of left nephrectomy, ileostomy, s/p colon cancer in remission for 20 years ago, s/p complete colectomy and partial small bowel removal, Crohns disease, HTN, HLD presents to emergency department with at bedside for fever and chills. Patient states on 02/06/2025 he began developing fevers, chills, cough. He went to urgent care on 02/08 and was diagnosed with urinary tract infection and started on antibiotics. Later received a phone call stating his urine culture was negative but he completed a course of antibiotics. States he was feeling better until he woke up this morning with symptoms returned. He notes that he has cough attacks which caused him to vomit. He denies chest pain or shortness of breath, abdominal pain, changes in bowel, dysuria or hematuria. Patient states he took Tylenol at 12:30 p.m. today with improvement. His T-max this morning was 101.7. GENERAL: Well-appearing, well-nourished, and in no acute distress. HEAD: Normocephalic, atraumatic. CHEST: Clear to auscultation. ?No respiratory distress. ABD: Soft, nontender, no rebound or rigidity. ostomy located in the left lower quadrant with no surrounding skin changes HEART: Regular rate and rhythm.? NEURO: ?Alert and oriented x3. Patient screened in triage and initial orders placed.? ?Additional care and disposition to be based upon?diagnostic testing and treatment. <Mylene Schneider PA-C - Last Filed: 02/17/25 16:23> History of Present Illness HPI Narrative: Agree with the above with the following additions/corrections: He does not know which antibiotics he had recently been on. Patient states he recently saw his public relations director Dr Dixon. His primary care physician is Dr Harris. Both are through [facility]. He does not remember his last creatinine exactly, though believes it might have been 3 point something, very unsure. He states regardless, his public relations director was not concerned. He denies any underlying respiratory conditions. He has not been nauseated. Denies any abdominal pain, chest pain, or shortness of breath. No sick contacts. He notes that he has occasionally had periodic coughing fits with some post-tussive emesis. The cough is occasionally productive of phlegm. He notes that his urine output has been decreased and attributes this to decreased PO intake but has not been nauseated. No flank, back, or abdominal pain. <Irena Polo MD - Last Filed: 02/17/25 22:48> Related Data Home Medications: Home Medications ?Medication ?Instructions ?Recorded ?Confirmed ?Last Taken ?Type amlodipine 10 mg tablet 11/28/19 Unknown History atorvastatin 20 mg tablet 11/28/19 Unknown History candesartan 4 mg tablet 11/28/19 Unknown History irbesartan 75 mg tablet mg 11/28/19 Unknown History magnesium chloride 71.5 mg PO 11/28/19 Unknown History (magnesium chloride) tablet,delayed release (Nu-Mag) omeprazole 20 mg capsule,delayed 11/28/19 Unknown History release ropinirole 3 mg tablet mg 11/28/19 Unknown History sitagliptin phosphate 50 mg tablet mg 11/28/19 Unknown History (Januvia) <Mylene Schneider PA-C - Last Filed: 02/17/25 16:23> Allergies/Adverse Reactions: Allergies Allergy/AdvReac Type Severity Reaction Status Date / Time No Known Allergies Allergy Verified 02/17/25 14:30 <Mylene Schneider PA-C - Last Filed: 02/17/25 16:23> [facility] Past Medical History Medical History: Medical History (Updated 02/17/25 @ 22:48 by Irena Polo MD) 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 Hypertension Restless leg syndrome Hyperlipidemia Ileostomy present Crohn's disease <Mylene Schneider PA-C - Last Filed: 02/17/25 16:23> Surgical History Surgical History: Surgical History History of left nephrectomy <Mylene Schneider PA-C - Last Filed: 02/17/25 16:23> Family History Family History: Family History Other Diabetes mellitus Heart disease Hypertension <Mylene Schneider PA-C - Last Filed: 02/17/25 16:23> Social History Social History: Social History Smoking status: Never smoker Living arrangements: with family Additional living arrangements comments: Gender identity (if verbalized by the patient): Male <Mylene Schneider PA-C - Last Filed: 02/17/25 16:23> Exam Narrative: GENERAL: well-nourished, and in no acute distress. HEAD: Normocephalic, atraumatic. EYES: Non injected, non icteric ENT: Nares clear, no rhinorrhea or epistaxis. Moist mucous membranes NECK: Supple. CHEST: Speaking in full sentences. No respiratory distress. HEART: Regular rate and rhythm. . ABDOMEN: Soft, nondistended. EXTREMITIES: Normal range of motion. No lower extremity edema. SKIN: Warm, dry, no rash. NEURO: No focal deficits. Alert and oriented x3. PSYCH: Normal mood and affect. <Irena Polo MD - Last Filed: 02/17/25 22:48> Course Vital Signs Vital signs: Vital Signs Temperature 97.9 F 02/17/25 16:33 Pulse Rate 79 02/17/25 16:33 Respiratory Rate 16 02/17/25 16:33 Blood Pressure 94/80 L 02/17/25 16:33 Pulse Oximetry 97 02/17/25 16:33 Temperature 98 F 02/17/25 21:35 Pulse Rate 102 H 02/17/25 21:11 Respiratory Rate 16 02/17/25 21:11 Blood Pressure 142/69 H 02/17/25 21:11 Pulse Oximetry 100 02/17/25 21:11 Oxygen Delivery Room Air 02/17/25 19:12 <Mylene Schneider PA-C - Last Filed: 02/17/25 16:23> Vital Signs Temperature 97.9 F 02/17/25 16:33 Pulse Rate 79 02/17/25 16:33 Respiratory Rate 16 02/17/25 16:33 Blood Pressure 94/80 L 02/17/25 16:33 Pulse Oximetry 97 02/17/25 16:33 Temperature 98 F 02/17/25 21:35 Pulse Rate 102 H 02/17/25 21:11 Respiratory Rate 16 02/17/25 21:11 Blood Pressure 142/69 H 02/17/25 21:11 Pulse Oximetry 100 02/17/25 21:11 Oxygen Delivery Room Air 02/17/25 19:12 <Irena Polo MD - Last Filed: 02/17/25 22:48> MDM - Fever MDM Narrative Medical decision making narrative: Patient with history colon cancer status post colectomy, status post left nephrectomy, and ileostomy presents with fever and chills. In the emergency department he is afebrile with vital signs show hypotension With a narrow pulse pressure but a mean arterial pressure of 85mmHg. Patient has hyperkalemia. He is given high-dose albuterol, calcium gluconate, dextrose, insulin (5U instead of 10 given renal function), polystyrene, and sodium bicarb given acidotic. Baseline creatinine 1.8-2; today 4.21 concerning for MERI superimposed on CKD but particularly acute renal failure; however, most recent renal function is unknown as that was from several years ago. 1 L IV fluids ordered. ALT and alk-phos elevation. Patient has a significant leukocytosis, greater than 20. He has a normocytic anemia which is stable from previous. Will perform CT imaging of chest abdomen and pelvis, w/o contrast given renal function. He has hypomagnesemia; repletion ordered. Hypotension resolved (even after only IV fluids infused for 10 minutes), now 113/67. However, 2nd fluid bolus ordered given ART. Urine culture from 2019 is reviewed which grew Klebsiella that was luna resistant to every antibiotic except for meropenem. Spoke with pharmacist who said meropenem can be used down to dialysis 500mg-1000mg (could be conservative if desired) q12 hours ; if wanted broad agent versus Rocephin until cultures. Given patient now having rigors (although still afebrile) and his complicated health history, meropenem ordered. This decision is made in conjunction with PA hospitalist strategic consultant Shonna who accepts patient for admission though bed assignment pending repeat BMP ([facility] versus medical). He still remains afebrile on temporal, oral, and axillary measurements. He refuses rectal temp as he states he does not have one any longer after colectomy. Repeat BMP with similar creatinine although hyperkalemia is still present but improved. Re-treating hyperkalemia (now with dextrose containing fluids given suspect a degree of starvation). Shonna confirms med tele will be fine. <Irena Polo MD - Last Filed: 02/17/25 22:48> Differential Diagnosis Differential diagnosis: Likely fever of unknown origin, community acquired pneumonia, pyelonephritis (UTI), viral infection, sepsis, influenza and other (intra-abdominal abscess; malignancy) <Irena Polo MD - Last Filed: 02/17/25 22:48> Lab Data Attestation: I reviewed the patient's lab results. <Irena Polo MD - Last Filed: 02/17/25 22:48> Result diagrams: 02/17/25 16:32 02/17/25 22:05 <Mylene Schneider PA-C - Last Filed: 02/17/25 16:23> Labs: Lab Results 02/17/25 02/17/25 02/17/25 Range/Units 16:32 17:49 19:06 WBC 21.9 H (4.5-10.0) K/mm3 RBC 3.80 L (4.6-6.20) M/mm3 Hgb 11.4 L (14.0-18.0) g/dL Hct 35.5 L (42.0-52.0) % MCV 93.4 (80-100) fl MCH 30.0 (26-34) pg MCHC 32.1 (32-36) g/dl RDW 14.4 (11.5-14.5) % Plt Count 243 D (150-375) k/mm3 MPV 10.2 (7.4-10.4) fl Immature Gran % (Auto) 0.9 H (0-0.5) % Neut % (Auto) 92.3 H (45.5-73.1) % Lymph % (Auto) 2.5 L (18.3-44.2) % [place] % (Auto) 4.1 (2.6-8.5) % Eos % (Auto) 0.1 (0-4.4) % Baso % (Auto) 0.1 L (0.2-1.2) % Lymph # (Auto) 0.55 L (0.9-3.2) K/mm3 [place] # (Auto) 0.9 H (0.1-0.6) K/mm3 Eos # (Auto) 0.0 (0-0.3) K/mm3 Baso # (Auto) 0.0 (0.0-0.1) K/mm3 Abs Immat Gran (auto) 0.19 H (0.00-0.031) K/mm3 Absolute Neuts (auto) 20.2 H (1.3-6.7) K/mm3 Absolute Nucleated RBC 0.000 (0.0-0.012) K/mm3 Nucleated RBC % 0.0 (0.0-0.2) % Sodium 137 (137-145) mmol/L Potassium 6.5 H* (3.4-5.0) mmol/L Chloride 110 H (98-107) mmol/L Carbon Dioxide 10 L (22-30) mmol/L Anion Gap 17 H (4-12) mmol/L BUN 70 H D (9-20) mg/dL Creatinine 4.21 H (0.7-1.3) mg/dL Estim Creat Clear Calc 14 ml/min Estimated GFR 14 L (59 - ) Glucose 101 (65-110) mg/dL POC Capillary Glucose 108 H (65-105) mg/dl Calcium 9.2 (8.4-10.2) mg/dL Phosphorus 4.1 (2.5-4.5) mg/dL Magnesium 1.0 L (1.6-2.3) mg/dL Total Bilirubin 0.7 (0.2-1.3) mg/dL AST 54 (17-59) U/L ALT 112 H (6-50) U/L Alkaline Phosphatase 146 H (38-126) U/L Total Creatine Kinase (55-170) U/L Total Protein 8.0 (6.3-8.2) g/dL Albumin 4.2 (3.5-5.1) g/dL Urine Color (Yellow) Urine Appearance (Clear) Urine pH (5.0-9.0) Ur Specific [place] (1.001-1.035) Urine Protein (Negative) mg/dL Urine Glucose (UA) (Negative) mg/dL Urine Ketones (Negative) mg/dL Ur Blood (Man) (Negative) Urine Nitrate (Negative) Urine Bilirubin (Negative) Urine Urobilinogen (<2.0) mg/dL Leukocyte Esterase Rfl (Negative) JULISSA/UL Urine RBC (0-2) /hpf Urine WBC (0-3) /hpf Ur Squamous Epith Cells (Few) /hpf Urine Bacteria /hpf Urine Casts Influenza A (RT-PCR) Negative (Negative) Influenza B (RT-PCR) Negative (Negative) RSV (RT-PCR) Negative (Negative) SARS-CoV-2 RNA (RT-PCR) Negative (Negative) 02/17/25 02/17/25 02/17/25 Range/Units 19:07 20:06 22:05 WBC (4.5-10.0) K/mm3 RBC (4.6-6.20) M/mm3 Hgb (14.0-18.0) g/dL Hct (42.0-52.0) % MCV (80-100) fl MCH (26-34) pg MCHC (32-36) g/dl RDW (11.5-14.5) % Plt Count (150-375) k/mm3 MPV (7.4-10.4) fl Immature Gran % (Auto) (0-0.5) % Neut % (Auto) (45.5-73.1) % Lymph % (Auto) (18.3-44.2) % [place] % (Auto) (2.6-8.5) % Eos % (Auto) (0-4.4) % Baso % (Auto) (0.2-1.2) % Lymph # (Auto) (0.9-3.2) K/mm3 [place] # (Auto) (0.1-0.6) K/mm3 Eos # (Auto) (0-0.3) K/mm3 Baso # (Auto) (0.0-0.1) K/mm3 Abs Immat Gran (auto) (0.00-0.031) K/mm3 Absolute Neuts (auto) (1.3-6.7) K/mm3 Absolute Nucleated RBC (0.0-0.012) K/mm3 Nucleated RBC % (0.0-0.2) % Sodium 141 (137-145) mmol/L Potassium 5.4 H (3.4-5.0) mmol/L Chloride 110 H (98-107) mmol/L Carbon Dioxide 12 L (22-30) mmol/L Anion Gap 19 H (4-12) mmol/L BUN 62 H (9-20) mg/dL Creatinine 4.32 H (0.7-1.3) mg/dL Estim Creat Clear Calc 13 ml/min Estimated GFR 13 L (59 - ) Glucose 174 H (65-110) mg/dL POC Capillary Glucose 181 H (65-105) mg/dl Calcium 9.3 (8.4-10.2) mg/dL Phosphorus (2.5-4.5) mg/dL Magnesium (1.6-2.3) mg/dL Total Bilirubin (0.2-1.3) mg/dL AST (17-59) U/L ALT (6-50) U/L Alkaline Phosphatase (38-126) U/L Total Creatine Kinase 54 L (55-170) U/L Total Protein (6.3-8.2) g/dL Albumin (3.5-5.1) g/dL Urine Color Yellow (Yellow) Urine Appearance Cloudy H (Clear) Urine pH 5.0 (5.0-9.0) Ur Specific [place] 1.015 (1.001-1.035) Urine Protein 3+ H (Negative) mg/dL Urine Glucose (UA) Negative (Negative) mg/dL Urine Ketones Negative (Negative) mg/dL Ur Blood (Man) 2+ H (Negative) Urine Nitrate Negative (Negative) Urine Bilirubin Negative (Negative) Urine Urobilinogen 0.2 (<2.0) mg/dL Leukocyte Esterase Rfl 2+ H (Negative) JULISSA/UL Urine RBC 6-10 H (0-2) /hpf Urine WBC >100 H (0-3) /hpf Ur Squamous Epith Cells None seen (Few) /hpf Urine Bacteria 4+ H /hpf Urine Casts 0-2 Influenza A (RT-PCR) (Negative) Influenza B (RT-PCR) (Negative) RSV (RT-PCR) (Negative) SARS-CoV-2 RNA (RT-PCR) (Negative) <Mylene Schneider PA-C - Last Filed: 02/17/25 16:23> Lab Results 02/17/25 02/17/25 02/17/25 Range/Units 16:32 17:49 19:06 WBC 21.9 H (4.5-10.0) K/mm3 RBC 3.80 L (4.6-6.20) M/mm3 Hgb 11.4 L (14.0-18.0) g/dL Hct 35.5 L (42.0-52.0) % MCV 93.4 (80-100) fl MCH 30.0 (26-34) pg MCHC 32.1 (32-36) g/dl RDW 14.4 (11.5-14.5) % Plt Count 243 D (150-375) k/mm3 MPV 10.2 (7.4-10.4) fl Immature Gran % (Auto) 0.9 H (0-0.5) % Neut % (Auto) 92.3 H (45.5-73.1) % Lymph % (Auto) 2.5 L (18.3-44.2) % [place] % (Auto) 4.1 (2.6-8.5) % Eos % (Auto) 0.1 (0-4.4) % Baso % (Auto) 0.1 L (0.2-1.2) % Lymph # (Auto) 0.55 L (0.9-3.2) K/mm3 [place] # (Auto) 0.9 H (0.1-0.6) K/mm3 Eos # (Auto) 0.0 (0-0.3) K/mm3 Baso # (Auto) 0.0 (0.0-0.1) K/mm3 Abs Immat Gran (auto) 0.19 H (0.00-0.031) K/mm3 Absolute Neuts (auto) 20.2 H (1.3-6.7) K/mm3 Absolute Nucleated RBC 0.000 (0.0-0.012) K/mm3 Nucleated RBC % 0.0 (0.0-0.2) % Sodium 137 (137-145) mmol/L Potassium 6.5 H* (3.4-5.0) mmol/L Chloride 110 H (98-107) mmol/L Carbon Dioxide 10 L (22-30) mmol/L Anion Gap 17 H (4-12) mmol/L BUN 70 H D (9-20) mg/dL Creatinine 4.21 H (0.7-1.3) mg/dL Estim Creat Clear Calc 14 ml/min Estimated GFR 14 L (59 - ) Glucose 101 (65-110) mg/dL POC Capillary Glucose 108 H (65-105) mg/dl Calcium 9.2 (8.4-10.2) mg/dL Phosphorus 4.1 (2.5-4.5) mg/dL Magnesium 1.0 L (1.6-2.3) mg/dL Total Bilirubin 0.7 (0.2-1.3) mg/dL AST 54 (17-59) U/L ALT 112 H (6-50) U/L Alkaline Phosphatase 146 H (38-126) U/L Total Creatine Kinase (55-170) U/L Total Protein 8.0 (6.3-8.2) g/dL Albumin 4.2 (3.5-5.1) g/dL Urine Color (Yellow) Urine Appearance (Clear) Urine pH (5.0-9.0) Ur Specific [place] (1.001-1.035) Urine Protein (Negative) mg/dL Urine Glucose (UA) (Negative) mg/dL Urine Ketones (Negative) mg/dL Ur Blood (Man) (Negative) Urine Nitrate (Negative) Urine Bilirubin (Negative) Urine Urobilinogen (<2.0) mg/dL Leukocyte Esterase Rfl (Negative) JULISSA/UL Urine RBC (0-2) /hpf Urine WBC (0-3) /hpf Ur Squamous Epith Cells (Few) /hpf Urine Bacteria /hpf Urine Casts Influenza A (RT-PCR) Negative (Negative) Influenza B (RT-PCR) Negative (Negative) RSV (RT-PCR) Negative (Negative) SARS-CoV-2 RNA (RT-PCR) Negative (Negative) 02/17/25 02/17/25 02/17/25 Range/Units 19:07 20:06 22:05 WBC (4.5-10.0) K/mm3 RBC (4.6-6.20) M/mm3 Hgb (14.0-18.0) g/dL Hct (42.0-52.0) % MCV (80-100) fl MCH (26-34) pg MCHC (32-36) g/dl RDW (11.5-14.5) % Plt Count (150-375) k/mm3 MPV (7.4-10.4) fl Immature Gran % (Auto) (0-0.5) % Neut % (Auto) (45.5-73.1) % Lymph % (Auto) (18.3-44.2) % [place] % (Auto) (2.6-8.5) % Eos % (Auto) (0-4.4) % Baso % (Auto) (0.2-1.2) % Lymph # (Auto) (0.9-3.2) K/mm3 [place] # (Auto) (0.1-0.6) K/mm3 Eos # (Auto) (0-0.3) K/mm3 Baso # (Auto) (0.0-0.1) K/mm3 Abs Immat Gran (auto) (0.00-0.031) K/mm3 Absolute Neuts (auto) (1.3-6.7) K/mm3 Absolute Nucleated RBC (0.0-0.012) K/mm3 Nucleated RBC % (0.0-0.2) % Sodium 141 (137-145) mmol/L Potassium 5.4 H (3.4-5.0) mmol/L Chloride 110 H (98-107) mmol/L Carbon Dioxide 12 L (22-30) mmol/L Anion Gap 19 H (4-12) mmol/L BUN 62 H (9-20) mg/dL Creatinine 4.32 H (0.7-1.3) mg/dL Estim Creat Clear Calc 13 ml/min Estimated GFR 13 L (59 - ) Glucose 174 H (65-110) mg/dL POC Capillary Glucose 181 H (65-105) mg/dl Calcium 9.3 (8.4-10.2) mg/dL Phosphorus (2.5-4.5) mg/dL Magnesium (1.6-2.3) mg/dL Total Bilirubin (0.2-1.3) mg/dL AST (17-59) U/L ALT (6-50) U/L Alkaline Phosphatase (38-126) U/L Total Creatine Kinase 54 L (55-170) U/L Total Protein (6.3-8.2) g/dL Albumin (3.5-5.1) g/dL Urine Color Yellow (Yellow) Urine Appearance Cloudy H (Clear) Urine pH 5.0 (5.0-9.0) Ur Specific [place] 1.015 (1.001-1.035) Urine Protein 3+ H (Negative) mg/dL Urine Glucose (UA) Negative (Negative) mg/dL Urine Ketones Negative (Negative) mg/dL Ur Blood (Man) 2+ H (Negative) Urine Nitrate Negative (Negative) Urine Bilirubin Negative (Negative) Urine Urobilinogen 0.2 (<2.0) mg/dL Leukocyte Esterase Rfl 2+ H (Negative) JULISSA/UL Urine RBC 6-10 H (0-2) /hpf Urine WBC >100 H (0-3) /hpf Ur Squamous Epith Cells None seen (Few) /hpf Urine Bacteria 4+ H /hpf Urine Casts 0-2 Influenza A (RT-PCR) (Negative) Influenza B (RT-PCR) (Negative) RSV (RT-PCR) (Negative) SARS-CoV-2 RNA (RT-PCR) (Negative) <Irena Polo MD - Last Filed: 02/17/25 22:48> Imaging Data Radiologist's impression: Impressions Chest X-Ray 02/17/25 16:46 IMPRESSION: 1: NO ACUTE CARDIOPULMONARY DISEASE. Chest/Abdomen/Pelvis CT 02/17/25 20:23 IMPRESSION: Significant right-sided hydroureteronephrosis without an obstructing stone visualized. <Irena Polo MD - Last Filed: 02/17/25 22:48> ECG Data EKG #1: Attestation: I personally reviewed and interpreted this ECG as follows: <Irena Polo MD - Last Filed: 02/17/25 22:48> ECG completion date: 02/17/25 <Irena Polo MD - Last Filed: 02/17/25 22:48> ECG completion time: 18:28 <Irena Polo MD - Last Filed: 02/17/25 22:48> Interpretation: Normal sinus rhythm at a rate of 68 beats per minute. SD interval 190. QRS 93. QT/QTC 374/391. Good R-wave progression across the precordial leads. No T-wave inversions. <Irena Polo MD - Last Filed: 02/17/25 22:48> Discharge Plan Discharge Clinical Impression: Acute renal failure, Acute hyperkalemia, Elevated ALT measurement, Alkaline phosphatase elevation, Hydroureteronephrosis, UTI (urinary tract infection), Rigors <Mylene Schneider PA-C - Last Filed: 02/17/25 16:23> Patient Disposition: Still a Patient <Mylene Schneider PA-C - Last Filed: 02/17/25 16:23> Condition: Stable <Mylene Schneider PA-C - Last Filed: 02/17/25 16:23> Patient Language: [place] <Mylene Schneider PA-C - Last Filed: 02/17/25 16:23> Prescriptions: No Action atorvastatin 20 mg tablet candesartan 4 mg tablet ropinirole 3 mg tablet amlodipine 10 mg tablet omeprazole 20 mg capsule,delayed release(DR/EC) irbesartan 75 mg tablet Januvia 50 mg tablet Nu-Mag 71.5 mg tablet,delayed release (DR/EC) PO sulfamethoxazole-trimethoprim [Bactrim DS] 800-160 mg tablet 1 tablet PO Q12H Qty: 20 0RF <Mylene Schneider PA-C - Last Filed: 02/17/25 16:23> Follow-up/Referrals: UNKNOWN,DOCTOR [Primary Care Provider] - <Mylene Schneider PA-C - Last Filed: 02/17/25 16:23>
[2025-02-17 16:50] LABS: Basophils Percent Auto 0.1 % (0.2-1.2); Eosinophils Percent Auto 0.1 % (0-4.4); Hematocrit 35.5 % (42.0-52.0); Hemoglobin 11.4 g/dL (14.0-18.0); Immature Granulocyte Absolute 0.19 K/mm3 (0.00-0.031); Immature Granulocyte Percent A 0.9 % (0-0.5); Lymphocytes Absolute Auto 0.55 K/mm3 (0.9-3.2); Lymphocytes Percent Auto 2.5 % (18.3-44.2); Mean Corpuscular HGB Conc 32.1 g/dl (32-36); Mean Corpuscular Volume 93.4 fl (80-100); Mean Platelet Volume 10.2 fl (7.4-10.4); Monocytes Absolute Auto 0.9 K/mm3 (0.1-0.6); Monocytes Percent Auto 4.1 % (2.6-8.5); Neutrophils Absolute Auto 20.2 K/mm3 (1.3-6.7); Neutrophils Percent Auto 92.3 % (45.5-73.1); Platelet Count Result 243 k/mm3 (150-375); Red Cell Distribution Width 14.4 % (11.5-14.5); White Blood Count 21.9 K/mm3 (4.5-10.0)
[2025-02-17 17:15] LABS: Alanine Aminotransferase 112 U/L (6-50); Albumin Level 4.2 g/dL (3.5-5.1); Alkaline Phosphatase 146 U/L (38-126); Anion Gap 17 mmol/L (4-12); Aspartate Amino Transferase 54 U/L (17-59); Bilirubin,Total 0.7 mg/dL (0.2-1.3); Blood Urea Nitrogen 70 mg/dL (9-20); Calcium 9.2 mg/dL (8.4-10.2); Carbon Dioxide 10 mmol/L (22-30); Chloride 110 mmol/L (98-107); Estimated CRCL calculation 14 ml/min; Estimated Glomerular Filt Rate 14; Glucose 101 mg/dL (65-110); Potassium 6.5 mmol/L (3.4-5.0); Sodium 137 mmol/L (137-145)
--- NOTE | 2025-02-17 17:46 | ECG_ITS ---
Test Date: 2025-02-17 18:28:33 Measurements Intervals Ina Rate: 68 P: 19 CA: 190 QRS: -7 QRSD: 93 T: 38 QT: 374 QTc: 399 Interpretive Statements SINUS RHYTHM No previous ECG available for comparison Electronically Signed On 02-17-2025 18:42:10 CDT by Rita Murry M.D.
--- NOTE | 2025-02-17 17:50 | PC.NURSE ---
patient asked to provide urine sample, patient stated would need water to provide urine. per Desirae HOUGH, patient unable to have water at this time.
[2025-02-17] MEDS: ALBUTEROL SULFATE NEB 2.5 MG/3 ML INH 10 MG INHALATION (18:24)
[2025-02-17 18:33] LABS: Influenza A QL RT-PCR Negative (Negative); Influenza B QL RT-PCR Negative (Negative); RSV RNA, RT-PCR Negative (Negative); SARS-CoV-2 RNA PCR Negative (Negative)
[2025-02-17 18:36] LABS: Phosphorus 4.1 mg/dL (2.5-4.5)
[2025-02-17] MEDS: SODIUM POLYSTYRENE SULFONONATE 15 GM/60 ML BTL 30 GM PO (19:04)
[2025-02-17] MEDS: SODIUM CHLORIDE 0.9% IV 1,000 ML 999 ML IV CONT ×2 (19:07→19:46)
[2025-02-17] MEDS: CALCIUM GLUCONATE 1,000 MG/10 ML VIAL 1000 MG IV PUSH (19:08)
[2025-02-17] MEDS: INSULIN HUMAN REGULAR (*BKC) 100 UNITS/ML IV PUSH ×2 (19:09→22:53)
[2025-02-17] MEDS: DEXTROSE 50% 25 GM/50 ML SYRINGE IV PUSH (19:10)
[2025-02-17] MEDS: SODIUM BICARBONATE 8.4% 50 MEQ/50 ML SYRINGE IV PUSH ×2 (19:10→22:50)
[2025-02-17 19:14] LABS: Glucose Point of Care 108 mg/dl (65-105)
--- OUTSIDE RECORDS SUMMARY | 2025-02-17 19:24 | XMS_ITS | Clinical Summary ---
Author Organization [facility] Address [address] [place] [address] Care Team Providers Care Ceo And Co Founder Name Role Phone Unavailable Primary Care Provider [...]
[2025-02-17 19:37] LABS: Add Urine Microscopic? YES; Appearance Urine Cloudy (Clear); Bacteria Urine 4+ /hpf; Bilirubin Urine Negative (Negative); Blood Urine 2+ (Negative); Color Urine Yellow (Yellow); Glucose Urine UA Negative (Negative); Ketones Urine Negative (Negative); Leukocyte Esterase Ur 2+ LEU/UL (Negative); Nitrate Urine Negative (Negative); Non Pathogenic Casts 0-2; Protein Urine 3+ mg/dL (Negative); Specific Grav Ur 1.015 (1.001-1.035); Squamous Epithelial Cell Urine None Seen /hpf (Few); Urobilinogen Urine 0.2 mg/dL (<2.0); WBC Urine >100 /hpf (0-3)
[2025-02-17] MEDS: MAGNESIUM SULF 2 GM/WATER 50ML 2 GM/50 ML BAG IVPB (19:46)
[2025-02-17 20:08] LABS: Glucose Point of Care 181 mg/dl (65-105)
--- NOTE | 2025-02-17 21:37 | PC.NURSE ---
Patient states he is starting to have chills again. Temperatures were taken and as follows; 99 skin, 98 orally, 98 Axillary, and 98.5 orally again. Patient states he does not have a rectum and a rectal temperature cannot be preformed. Notified EDP Dr. Polo.
[2025-02-17] MEDS: ONDANSETRON INJ 4 MG/2 ML VIAL IV PUSH (21:54)
[2025-02-17] MEDS: MEROPENEM 500 MG/NS 100 ML 500 MG/100 ML BAG 200 MG IVPB (22:02)
--- NOTE | 2025-02-17 22:06 | P.HP_ITS ---
H&P: HPI History of Present Illness Date/Time: 02/17/25 22:05 Chief Complaint: Fever. Narrative: This is a very pleasant 74-year-old male with history of Crohn's disease, colon cancer status post total colectomy and partial small-bowel resection with ileostomy, left nephrectomy due to poor functioning kidney and what sounds like matrix stones, chronic kidney disease (baseline creatinine is ?in the threes, followed by Dr. Dixon at [facility]), hypertension, and hyperlipidemia who presented to the emergency department via private vehicle with complaints of fever. On 02/06/2025 he developed fever, chills, and a cough and he was seen in urgent care 2 days thereafter for evaluation of ongoing fever. He was diagnosed with a urinary tract infection and was started on Bactrim. He later received a phone call stating that his urine culture was negative however he was told to complete the course of antibiotics. He was feeling much better after 5 days however yesterday morning he once again felt unwell when he got up for the day. His fever returned with a T-max of 101.7?. He is having frequent chills and rigors. He also reports nausea and dry heaves. He has noticed a decrease in urine output and endorses urinary frequency however is only urinating a small amount of time. He has mild dysuria and his urine is dark yellow. He denies sinus congestion, sore throat, productive cough, abdominal pain, vomiting, and diarrhea. In the ED: Vital signs on arrival include a temperature of 97.9?, blood pressure 94/80, pulse 79, respiratory 16, SpO2 97% on room air. Labs are significant for WBC count 21.9, hemoglobin 11.4, potassium 6.5, chloride 110, carbon dioxide 10, anion gap 17, BUN 70, creatinine 4.21, magnesium 1.0, ALT 112, CK 54. Urinalysis was positive for 3+ protein, 2+ blood, 2+ leukocyte esterase, 6 to 10 RBC, greater than 100 WBC, and 4+ bacteria. He was negative for influenza, RSV, and COVID. Chest x-ray showed no acute cardiopulmonary disease. CT of the chest, abdomen, and pelvis showed significant right-sided hydroureteronephrosis without an obstructing stone visualized. He was given 2 L normal saline bolus and received appropriate treatment for hyperkalemia with improvement in his po tassium levels. He was started on meropenem due to prior history of ESBL Klebsiella pneumoniae urinary tract infection sensitive only to meropenem. Review of Systems Review of Systems: 12 systems were reviewed and are negativ e except for as per HPI. 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, total colectomy, and partial small- bowel resection Hypertension Restless leg syndrome Hyperlipidemia Crohn's disease Surgical History Surgical History (Updated 02/18/25 @ 05:14 by Shonna Olson PA-C) History of ileostomy History of total colectomy (2005) and partial small-bowel resection with ileostomy for signet cell carcinoma History of left nephrectomy for poorly functioning kidney and what sounds like matrix stone formation Family History Family History Other Diabetes mellitus Heart disease Hypertension Social History Social History (Updated 02/18/25 @ 05:15 by Shonna Olson PA-C) Social History: Surrogate medical decision maker: Corine Vásquez, spouse. Code status: Full code. Smoking status: Never smoker Alcohol intake: current Drinks per week: 2 Substance use: never Substance use type: does not use Do You Feel Safe in your Home?: Yes Lack of Transportation: No Lack of Food: Never True Current Housing: I Have Housing Concerned About Future Housing: No Difficulty Paying Gas/Electric Bills: No Difficulty Paying for Meds: No Currently Unemployed: No Education: Don't Know Difficulty w/ Childcare or Family Care: No Living arrangements: with family Additional living arrangements comments: Lives with spouse in [place]. 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: No Meds Home Medications and Allergies Home Medications ?Medication ?Instructions ?Recorded ?Confirmed ?Type amlodipine 10 mg tablet 11/28/19 History atorvastatin 20 mg tablet 11/28/19 History candesartan 4 mg tablet 11/28/19 History irbesartan 75 mg tablet mg 11/28/19 History magnesium chloride 71.5 mg PO 11/28/19 History (magnesium chloride) tablet,delayed release (Nu-Mag) omeprazole 20 mg capsule,delayed 11/28/19 History release ropinirole 3 mg tablet mg 11/28/19 History sitagliptin phosphate 50 mg tablet mg 11/28/19 History (Hayesuvia) sulfamethoxazole 800 1 tablet PO Q12H #20 tabs 11/28/19 Rx mg-trimethoprim 160 mg tablet (Bactrim DS) Allergies Allergy/AdvReac Type Severity Reaction Status Date / Time No Known Allergies Allergy Verified 02/17/25 14:30 Vital Signs Vital Signs - 24 hr 02/17/25 16:33 02/17/25 18:25 02/17/25 19:00 Temperature 97.9 F Pulse Rate 79 68 66 Respiratory Rate 16 19 19 Blood Pressure 94/80 L 113/67 Pulse Oximetry 97 97 Oxygen Delivery 02/17/25 19:00 02/17/25 19:12 02/17/25 19:13 Temperature Pulse Rate 68 98 Respiratory Rate Blood Pressure Pulse Oximetry 100 Oxygen Delivery Room Air 02/17/25 19:13 02/17/25 20:40 02/17/25 21:11 Temperature 98 F Pulse Rate 108 H 98 102 H Respiratory Rate 20 12 16 Blood Pressure 113/67 142/69 H Pulse Oximetry 98 100 Oxygen Delivery 02/17/25 21:35 02/17/25 21:35 Temperature 98.5 F 98 F Pulse Rate Respiratory Rate Blood Pressure Pulse Oximetry Oxygen Delivery Exam Narrative: General: Moderately ill-appearing gentleman supine in bed. Weight: 76 kg. BMI: 24.7. HEENT: PERRL, EOMI. Sclera anicteric. Tacky mucous membranes. Neck: Supple. Respiratory: Lungs are clear to auscultation bilaterally. Cardiovascular: Regular rate and rhythm with S1-S2. Gastrointestinal: Abdomen is soft, nontender, and nondistended with positive bowel sounds. Ileostomy is patent and draining. No guarding or rebound tenderness. Skin: Hot and dry. Extremities: No cyanosis, clubbing, or edema. Radial and pedal pulses intact. Neurological: Alert. Cranial nerves 2-12 are grossly intact. No gross focal deficits to casual conversation. Psychiatric: Pleasant and cooperative with normal mood and affect. Judgment and insight intact. H&P: Results Labs Labs: Short CBC 02/17/25 Range/Units 16:32 WBC 21.9 H (4.5-10.0) K/mm3 Hgb 11.4 L (14.0-18.0) g/dL Hct 35.5 L (42.0-52.0) % Plt Count 243 D (150-375) k/mm3 BMP 02/17/25 16:32 Sodium 137 Potassium 6.5 H* Chloride 110 H Carbon Dioxide 10 L BUN 70 H D Creatinine 4.21 H Glucose 101 Calcium 9.2 Liver Function 02/17/25 Range/Units 16:32 Total Bilirubin 0.7 (0.2-1.3) mg/dL AST 54 (17-59) U/L ALT 112 H (6-50) U/L Alkaline Phosphatase 146 H (38-126) U/L Albumin 4.2 (3.5-5.1) g/dL Urine 02/17/25 Range/Units 19:07 Urine Color Yellow (Yellow) Urine Appearance Cloudy H (Clear) Urine pH 5.0 (5.0-9.0) Ur Specific [place] 1.015 (1.001-1.035) Urine Protein 3+ H (Negative) mg/dL Urine Glucose (UA) Negative (Negative) mg/dL Impressions Chest X-Ray 02/17/25 16:46 IMPRESSION: 1: NO ACUTE CARDIOPULMONARY DISEASE. Chest/Abdomen/Pelvis CT 02/17/25 20:23 IMPRESSION: Significant right-sided hydroureteronephrosis without an obstructing stone visualized. Assessment and Plan Assessment and plan (1) Sepsis: Code(s): A41.9 - Sepsis, unspecified organism Status: Acute (2) Urinary tract infection: Code(s): N39.0 - Urinary tract infection, site not specified Status: Acute (3) Acute on chronic kidney failure: Code(s): N17.9 - Acute kidney failure, unspecified; N18.9 - Chronic kidney disease, unspecified Status: Acute (4) Electrolyte abnormality: Code(s): E87.8 - Other disorders of electrolyte and fluid balance, not elsewhere classified Status: Acute (5) Metabolic acidosis: Code(s): E87.20 - Acidosis, unspecified Status: Acute (6) Hydroureteronephrosis: Code(s): N13.30 - Unspecified hydronephrosis Status: Acute Plan The patient presented to the emergency department for evaluation of ongoing fever with recent back tract infection as detailed in HPI. Labs, imaging, EKG, and all reports were personally reviewed. He meets sepsis criteria with hypotension on arrival which has been responsive to IV fluids, acute on chronic kidney injury, and leukocytosis in the setting of urinary tract infection. Blood pressures have been stable since receiving an IV fluid bolus. Blood and urine cultures have been obtained and are pending. Continue empiric meropenem given history of ESBL Klebsiella pneumoniae UTI. Etiology of his worsening renal function is not entirely clear but is likely due to a combination of factors including sepsis from urinary tract infection, dehydration from poor appetite and insensible losses from fevers, and hypoperfusion from relative hypotension. CT scan showed severe right-sided hydroureteronephrosis but no obstructing stone was identified. He has also been taking his blood pressure medications and was also recently on Bactrim. For now will continue with judicious IV fluid rehydration and avoid nephrotoxic agents. All medications will be renally dosed. Renal ultrasound has been ordered for a.m. as well as several urine studies. I will ask Nephrology and Urology to see him in consultation for further recommendations. The hyperkalemia is related to acidosis from worsening renal function and likely the Bactrim as well. His potassium is improving with treatment and will be monitored closely. Magnesium was quite low and will be replaced. Lactic acid level and VBG are pending as well as a repeat BMP. His home medications will be reviewed and resumed as appropriate. Findings and treatment plan were discussed with the patient. Questions were solicited and answered to satisfaction. The patient's medical management will be taken over by the hospitalist team in a.m. Quality VTE Prophylaxis VTE prophylaxis: mechanical ordered and pharmacologic ordered The patient has been admitted under observation status. Hospitalist [facility] Advance Care Plan I have confirmed that the patient's Advanced Care Plan is present, code status is documented, or surrogate decision maker is listed in patient medical record.: Yes Medication Reconciliation The patient is not eligible for med reconciliation; the patient is in a emergent medical situation where delaying treatment would jeopardize the patients health.: Yes
[2025-02-17 22:21] LABS: Anion Gap 19 mmol/L (4-12); Blood Urea Nitrogen 62 mg/dL (9-20); Calcium 9.3 mg/dL (8.4-10.2); Carbon Dioxide 12 mmol/L (22-30); Chloride 110 mmol/L (98-107); Creatine Kinase 54 U/L (55-170); Estimated CRCL calculation 13 ml/min; Estimated Glomerular Filt Rate 13; Glucose 174 mg/dL (65-110); Potassium 5.4 mmol/L (3.4-5.0); Sodium 141 mmol/L (137-145)
[2025-02-17] MEDS: DEXTROSE 5%/0.9% SOD CHL 1,000 ML 100 ML IV CONT (22:51)
[2025-02-17 22:56] LABS: Glucose Point of Care 141 mg/dl (65-105)
[2025-02-18] VITALS (14 sets, daily range): BP systolic 113–124; BP diastolic 51–63; PULSE 73–116; RESP 14–18; TEMP 36.5–37.3; O2SAT 94–98; BMI 24.7
--- NOTE | 2025-02-18 00:26 | ADMGEN ---
This patient, Ganesh Vásquez, was admitted to 2 Medical Room 241-. Patient/family oriented to hospital policies and general routines including ID bracelet, bed and alarms, visiting hours, pain management, procedures, bathroom and other care routines, personal items, smoking policy, room service/diet, and visiting hours. Information on how to activate the Rapid Response Team has been discussed. Patient/Family are encouraged to report perceived risks to care and to ask questions if they do not understand what they are told or what they should do.
[2025-02-18] MEDS: LACTATED RINGERS 500 ML 999 ML IV CONT (00:32)
[2025-02-18] MEDS: ACETAMINOPHEN 325 MG TABLET 650 MG PO ×3 (00:36→17:23)
[2025-02-18] MEDS: DEXTROSE 5%/0.9% SOD CHL 1,000 ML 100 ML IV CONT (04:28)
[2025-02-18 05:47] LABS: Hemoglobin A1C 6.3 % (<5.7)
[2025-02-18 05:49] LABS: Alanine Aminotransferase 75 U/L (6-50); Albumin Level 3.2 g/dL (3.5-5.1); Alkaline Phosphatase 105 U/L (38-126); Anion Gap 12 mmol/L (4-12); Aspartate Amino Transferase 30 U/L (17-59); Bilirubin,Total 0.5 mg/dL (0.2-1.3); Blood Urea Nitrogen 65 mg/dL (9-20); CRP 8.8 mg/dL (<1.0); Calcium 8.7 mg/dL (8.4-10.2); Carbon Dioxide 15 mmol/L (22-30); Chloride 109 mmol/L (98-107); Complement C3 149 mg/dL (88-165); Creatine Kinase 60 U/L (55-170); Estimated CRCL calculation 14 ml/min; Estimated Glomerular Filt Rate 14; Glucose 144 mg/dL (65-110); Magnesium 1.4 mg/dL (1.6-2.3); Phosphorus 4.3 mg/dL (2.5-4.5); Potassium 6.7 mmol/L (3.4-5.0); Sodium 136 mmol/L (137-145)
[2025-02-18 06:00] LABS: Lactic Acid Reflex 1.5 mmol/L (0.7-2.0)
[2025-02-18] MEDS: ALBUTEROL SULFATE NEB 2.5 MG/3 ML INH 10 MG INHALATION (06:10)
[2025-02-18] MEDS: LACTATED RINGERS 1,000 ML 75 ML IV CONT ×2 (06:27→20:28)
[2025-02-18] MEDS: SODIUM ZIRCONIUM CYCLOSILICATE 10 GM POWD.PACK PO (06:27)
[2025-02-18] MEDS: MAGNESIUM SULF 2 GM/WATER 50ML 2 GM/50 ML BAG IVPB (06:27)
[2025-02-18] MEDS: SODIUM BICARBONATE 8.4% 50 MEQ/50 ML SYRINGE IV PUSH (06:40)
[2025-02-18] MEDS: CALCIUM GLUCONATE 1,000 MG/10 ML VIAL 1000 MG IV PUSH (06:41)
[2025-02-18 06:53] LABS: Fractional Inspired Oxygen 48 %; HCO3 VBG 15.3 mEq/l (24.0-30.0); PCO2 VBG 31.9 mmHg (42.0-48.0); PO2 VBG 50.4 mmHg (35.0-45.0)
[2025-02-18 06:54] LABS: Device OTHER DEVICE
--- NOTE | 2025-02-18 06:54 | PM.IMPN ---
Progress Note: A&P Assessment and Plan (1) Sepsis: Code(s): A41.9 - Sepsis, unspecified organism Status: Acute Assessment and Plan: Meets SIRS criteria: hypotension, leukocytosis, ginny - lactic acid: 1.5 - Received sepsis bolus in the ED - suspected source: UTI - blood cultures drawn on 02/17: pending - UA: cloudy appearance with 3+ protein, 2+ blood, 2+ leukocytes, 6-10 RBC, > 100 WBC, 4+ bacteria - Urine culture: pending - CXR unremarkable - Chest/abdomen/pelvis CT: Significant right-sided hydroureteronephrosis without an obstructing stone visualized. (2) Urinary tract infection: Code(s): N39.0 - Urinary tract infection, site not specified Status: Acute Assessment and Plan: Previously treated bactrim on 02/06 for concern of UTI. - UA: cloudy appearance with 3+ protein, 2+ blood, 2+ leukocytes, 6-10 RBC, > 100 WBC, 4+ bacteria - Urine culture: pending - previous micro reviewed 11/28/19: Klebsiella pneumoniae panresistant except to meropenem - started on meropenem on 02/17 (3) Acute on chronic kidney failure: Code(s): N17.9 - Acute kidney failure, unspecified; N18.9 - Chronic kidney disease, unspecified Status: Acute Assessment and Plan: Etiology of his worsening renal function is not entirely clear however this is likely due to a combination of factors including sepsis from urinary tract infection, dehydration from poor appetite and insensible losses from fevers, and hypoperfusion from relative hypotension. - BUN/Cr 62/4.32 on GFR 13 on admission, now 65/4.15 - CK WNL - Renal US: Enlarged right kidney with moderate hydronephrosis. Possible 11 mm cyst. - Avoid nephrotoxic medications - Renally dose medications - Monitor I/O. Current UOP WNL. - Nephrology consulted (4) Electrolyte abnormality: Code(s): E87.8 - Other disorders of electrolyte and fluid balance, not elsewhere classified Status: Acute Assessment and Plan: K 6.5 on admission. Hyperkalemia is related to acidosis from worsening renal function and likely the Bactrim. Given albuterol, lokelma 10 mg, and insulin 5 units x2. K improved to 5.4. Given another dose of lokelma. K 6.7 on am labs. Given albuterol and another lokelma. K improved to 5.3. Magnesium was low as well at 1.0 on admission. Supplemented. Continue to monitor. Nephrology consulted (5) Metabolic acidosis: Code(s): E87.20 - Acidosis, unspecified Status: Acute Assessment and Plan: Bicarb 10 on admission. VBG: pH 7.3, pCO2 31.9, pO2 50.4, and HCO3 15.3. Given 50 Meq Bicarb x2. Bicarb 15 on am labs. Given 50 Meq bicarb x1. (6) Hydroureteronephrosis: Code(s): N13.30 - Unspecified hydronephrosis Status: Acute Assessment and Plan: - Chest/abdomen/pelvis CT: Significant right-sided hydroureteronephrosis without an obstructing stone visualized. - Urology consulted - Patient made NPO for possible procedure (7) Hypertension: Code(s): I10 - Essential (primary) hypertension Status: Acute Assessment and Plan: Chronic Hypotensive on arrival, responded well to fluids. Blood pressures reviewed and currently stable. Holding amlodipine 10 mg daily and irbesartan 75 mg daily, resume when appropriate Time Spent With Patient Time with patient: 25 - 35 minutes Subjective Date/time seen: 02/18/25 06:54 Interval history: 74-year-old male with history of Crohn's disease, colon cancer status post total colectomy and partial small-bowel resection with ileostomy, left nephrectomy due to poor functioning kidney and what sounds like matrix stones, chronic kidney disease (baseline creatinine is ?in the threes, followed by Dr. Dixon at [facility]), hypertension, and hyperlipidemia who presented to the hospital via private vehicle with complaints of fever. Patient is pleasant lying comfortably in bed with family at bedside. He he states he is feeling much better today and has no complaints at this time. He continues to deny chest pain, shortness a breath, palpitations, nausea/vomiting, and abdominal pain. Review of Systems Review of Systems: All systems reviewed & are unremarkable except as noted in HPI and below Exam Narrative: AF HR 75 RR 18 SPO2 95 BP 113/51 General: male in no acute respiratory distress who is nontoxic appearing, lying semi recumbent in bed. HEENT: Normocephalic. Atraumatic. Extraocular movement intact. Sclera clear and anicteric. No facial asymmetry. Chest: Lungs are clear to auscultation bilaterally. No wheezes or crackles. CV: Heart was regular rate and rhythm. Abd: Abdomen was soft. Nontender. Nondistended. Positive bowel sounds. Ext: No clubbing, cyanosis, or edema. 2+ DP pulses bilaterally. Neuro: Patient is alert and oriented x4. Speech is clear. Objective Data Vital Signs Vital Signs: Vital Signs - 24 hr 02/17/25 16:33 02/17/25 18:25 02/17/25 19:00 Temperature 97.9 F Pulse Rate 79 68 66 Respiratory Rate 16 19 19 Blood Pressure 94/80 L 113/67 Pulse Oximetry 97 97 Oxygen Delivery 02/17/25 19:00 02/17/25 19:12 02/17/25 19:13 Temperature Pulse Rate 68 98 Respiratory Rate Blood Pressure Pulse Oximetry 100 Oxygen Delivery Room Air 02/17/25 19:13 02/17/25 20:40 02/17/25 21:11 Temperature 98 F Pulse Rate 108 H 98 102 H Respiratory Rate 20 12 16 Blood Pressure 113/67 142/69 H Pulse Oximetry 98 100 Oxygen Delivery 02/17/25 21:35 02/17/25 21:35 02/17/25 23:34 Temperature 98.5 F 98 F 98.3 F Pulse Rate 93 Respiratory Rate 16 Blood Pressure 123/65 Pulse Oximetry 95 Oxygen Delivery 02/18/25 00:36 02/18/25 00:59 02/18/25 01:30 Temperature 99.2 F 99.2 F Pulse Rate 86 86 Respiratory Rate 18 18 Blood Pressure 124/63 Pulse Oximetry 94 94 Oxygen Delivery Room Air 02/18/25 05:09 02/18/25 06:28 Temperature 97.7 F Pulse Rate 75 75 Respiratory Rate 18 16 Blood Pressure 113/51 L Pulse Oximetry 95 Oxygen Delivery Intake/Output Intake/Output: Intake & Output 02/15/25 02/16/25 02/17/25 02/18/25 23:59 23:59 23:59 23:59 Intake Total 2150.0 2100 Output Total 700 Balance 2150.0 1400 Meds/Results Medications: Active Medications Generic Name Dose Route Start Last Admin Trade Name Freq PRN Reason Stop Dose Admin Acetaminophen 650 mg 02/18/25 05:26 Acetaminophen 325 Mg Tablet PO Q6H PRN Mild Pain (1-3) or Fever Heparin Sodium (Porcine) 5,000 units 02/18/25 09:00 Heparin Sodium 5,000 Units/Ml Vial SUB-Q Q12HR KIRSTEN Meropenem 500 mg in 100 mls @ 200 mls/hr 02/18/25 09:00 IVPB Q12H KIRSTEN Lactated Ringer's 1,000 mls @ 75 mls/hr 02/18/25 05:30 02/18/25 06:27 Lr - Lactated Ringers Iv IV CONT 75 mls/hr .[id number] KIRSTEN Administration Magnesium Sulfate 2 gm in 50 mls @ 25 mls/hr 02/18/25 05:57 02/18/25 06:27 Magnesium Sulf 2 Gm/Water 50ml IVPB 02/18/25 07:56 25 mls/hr ONCE ONE Administration Ondansetron HCl 4 mg 02/17/25 22:27 Ondansetron Inj 4 Mg/2 Ml Vial IV PUSH Q4H PRN Nausea Radiology Results: ITS Impressions Chest X-Ray 02/17/25 16:46 IMPRESSION: 1: NO ACUTE CARDIOPULMONARY DISEASE. Chest/Abdomen/Pelvis CT 02/17/25 20:23 IMPRESSION: Significant right-sided hydroureteronephrosis without an obstructing stone visualized. Labs Labs: Laboratory Results - last 24 hr 02/17/25 02/17/25 02/17/25 16:32 17:49 19:06 WBC 21.9 H RBC 3.80 L Hgb 11.4 L Hct 35.5 L MCV 93.4 MCH 30.0 MCHC 32.1 RDW 14.4 Plt Count 243 D MPV 10.2 Immature Gran % (Auto) 0.9 H Neut % (Auto) 92.3 H Lymph % (Auto) 2.5 L [place] % (Auto) 4.1 Eos % (Auto) 0.1 Baso % (Auto) 0.1 L Lymph # (Auto) 0.55 L [place] # (Auto) 0.9 H Eos # (Auto) 0.0 Baso # (Auto) 0.0 Abs Immat Gran (auto) 0.19 H Absolute Neuts (auto) 20.2 H Absolute Nucleated RBC 0.000 Nucleated RBC % 0.0 Sodium 137 Potassium 6.5 H* Chloride 110 H Carbon Dioxide 10 L Anion Gap 17 H BUN 70 H D Creatinine 4.21 H Estim Creat Clear Calc 14 Estimated GFR 14 L Glucose 101 POC Capillary Glucose 108 H Hemoglobin A1c Lactic Acid Calcium 9.2 Phosphorus 4.1 Magnesium 1.0 L Total Bilirubin 0.7 AST 54 ALT 112 H Alkaline Phosphatase 146 H Total Creatine Kinase C-Reactive Protein Total Protein 8.0 Albumin 4.2 Urine Color Urine Appearance Urine pH Ur Specific [place] Urine Protein Urine Glucose (UA) Urine Ketones Ur Blood (Man) Urine Nitrate Urine Bilirubin Urine Urobilinogen Leukocyte Esterase Rfl Urine RBC Urine WBC Ur Squamous Epith Cells Urine Bacteria Urine Casts Complement C3 Complement C4 Influenza A (RT-PCR) Negative Influenza B (RT-PCR) Negative RSV (RT-PCR) Negative SARS-CoV-2 RNA (RT-PCR) Negative 02/17/25 02/17/25 02/17/25 19:07 20:06 22:05 WBC RBC Hgb Hct MCV MCH MCHC RDW Plt Count MPV Immature Gran % (Auto) Neut % (Auto) Lymph % (Auto) [place] % (Auto) Eos % (Auto) Baso % (Auto) Lymph # (Auto) [place] # (Auto) Eos # (Auto) Baso # (Auto) Abs Immat Gran (auto) Absolute Neuts (auto) Absolute Nucleated RBC Nucleated RBC % Sodium 141 Potassium 5.4 H Chloride 110 H Carbon Dioxide 12 L Anion Gap 19 H BUN 62 H Creatinine 4.32 H Estim Creat Clear Calc 13 Estimated GFR 13 L Glucose 174 H POC Capillary Glucose 181 H Hemoglobin A1c Lactic Acid Calcium 9.3 Phosphorus Magnesium Total Bilirubin AST ALT Alkaline Phosphatase Total Creatine Kinase 54 L C-Reactive Protein Total Protein Albumin Urine Color Yellow Urine Appearance Cloudy H Urine pH 5.0 Ur Specific [place] 1.015 Urine Protein 3+ H Urine Glucose (UA) Negative Urine Ketones Negative Ur Blood (Man) 2+ H Urine Nitrate Negative Urine Bilirubin Negative Urine Urobilinogen 0.2 Leukocyte Esterase Rfl 2+ H Urine RBC 6-10 H Urine WBC >100 H Ur Squamous Epith Cells None seen Urine Bacteria 4+ H Urine Casts 0-2 Complement C3 Complement C4 Influenza A (RT-PCR) Influenza B (RT-PCR) RSV (RT-PCR) SARS-CoV-2 RNA (RT-PCR) 02/17/25 02/18/25 02/18/25 22:49 04:53 05:31 WBC RBC Hgb Hct MCV MCH MCHC RDW Plt Count MPV Immature Gran % (Auto) Neut % (Auto) Lymph % (Auto) [place] % (Auto) Eos % (Auto) Baso % (Auto) Lymph # (Auto) [place] # (Auto) Eos # (Auto) Baso # (Auto) Abs Immat Gran (auto) Absolute Neuts (auto) Absolute Nucleated RBC Nucleated RBC % Sodium 136 L Potassium 6.7 H* Chloride 109 H Carbon Dioxide 15 L Anion Gap 12 BUN 65 H Creatinine 4.15 H Estim Creat Clear Calc 14 Estimated GFR 14 L Glucose 144 H POC Capillary Glucose 141 H Hemoglobin A1c 6.3 H Lactic Acid 1.5 Calcium 8.7 Phosphorus 4.3 Magnesium 1.4 L Total Bilirubin 0.5 AST 30 ALT 75 H Alkaline Phosphatase 105 Total Creatine Kinase 60 C-Reactive Protein 8.8 H Total Protein 7.0 Albumin 3.2 L Urine Color Urine Appearance Urine pH Ur Specific [place] Urine Protein Urine Glucose (UA) Urine Ketones Ur Blood (Man) Urine Nitrate Urine Bilirubin Urine Urobilinogen Leukocyte Esterase Rfl Urine RBC Urine WBC Ur Squamous Epith Cells Urine Bacteria Urine Casts Complement C3 149 Complement C4 38.4 Influenza A (RT-PCR) Influenza B (RT-PCR) RSV (RT-PCR) SARS-CoV-2 RNA (RT-PCR) Quality VTE Prophylaxis VTE prophylaxis: mechanical ordered and pharmacologic ordered
[2025-02-18 07:44] LABS: Erythrocyte Sedimentation Rate 81 mm/hr (0-20)
[2025-02-18 07:56] LABS: Basophils Percent Auto 0.2 % (0.2-1.2); Hematocrit 31.3 % (42.0-52.0); Hemoglobin 9.8 g/dL (14.0-18.0); Immature Granulocyte Absolute 0.27 K/mm3 (0.00-0.031); Immature Granulocyte Percent A 1.1 % (0-0.5); Lymphocytes Absolute Auto 0.88 K/mm3 (0.9-3.2); Lymphocytes Percent Auto 3.6 % (18.3-44.2); Mean Corpuscular HGB Conc 31.3 g/dl (32-36); Mean Corpuscular Hemoglobin 29.9 pg (26-34); Mean Corpuscular Volume 95.4 fl (80-100); Mean Platelet Volume 10.1 fl (7.4-10.4); Monocytes Absolute Auto 0.7 K/mm3 (0.1-0.6); Monocytes Percent Auto 2.7 % (2.6-8.5); Neutrophils Absolute Auto 22.7 K/mm3 (1.3-6.7); Neutrophils Percent Auto 92.4 % (45.5-73.1); Platelet Count Result 170 k/mm3 (150-375); Red Blood Count 3.28 M/mm3 (4.6-6.20); Red Cell Distribution Width 14.6 % (11.5-14.5); White Blood Count 24.6 K/mm3 (4.5-10.0)
[2025-02-18 08:08] LABS: Potassium 5.3 mmol/L (3.4-5.0)
[2025-02-18] MEDS: HEPARIN SODIUM 5,000 UNITS/ML VIAL 5000 UNITS SUB-Q ×2 (08:47→20:30)
[2025-02-18] MEDS: MEROPENEM 500 MG/NS 100 ML 500 MG/100 ML BAG 200 MG IVPB ×2 (08:48→20:29)
--- NOTE | 2025-02-18 10:33 | PM.CNNEP ---
Assessment and Plan Assessment and plan (1) Acute on chronic kidney failure: Code(s): N17.9 - Acute kidney failure, unspecified; N18.9 - Chronic kidney disease, unspecified Status: Acute Assessment and Plan: the patient has chronic kidney disease. This is a result of the nephrectomy but also because of hypertension and probably vascular disease. Dr. Olvin Dixon at [facility] is following him for this. Apparently things have been stable but we do not know his baseline creatinine. The patient tells me that his is bring over paperwork showing his last creatinine the patient has new onset renal failure. His creatinine is now above 4. I suspect that this is worse than his baseline. He has several issues that might contribute to this. He has not been eating and drinking very well and so could be dehydrated. He is getting some IV fluids. He has a bladder infection this could contribute as well. He is on Bactrim which can increase the potassium and creatinine because trimethoprim inhibits the secretion of both items. This has been discontinued and he is on a different antibiotic now. The patient has hydronephrosis. Urology has been consulted to relieve the obstruction. The sooner the better because of his infection. There are other causes such as rhabdomyolysis ( Will check a CK), glomerulonephritis, and interstitial nephritis but these are less likely. (2) Metabolic acidosis: Code(s): E87.20 - Acidosis, unspecified Status: Acute Assessment and Plan: the patient has a low bicarbonate level. He is getting some bicarbonate infusions. His anion gap is normal. This is probably due to poor ammonia production with his CKD (3) Electrolyte abnormality: Code(s): E87.8 - Other disorders of electrolyte and fluid balance, not elsewhere classified Status: Acute Assessment and Plan: patient's potassium was high. He receive some medicines for this. It is better now. Will check another lab this afternoon. This is due to the MERI, CKD, and Bactrim (4) Urinary tract infection: Code(s): N39.0 - Urinary tract infection, site not specified Status: Acute Assessment and Plan: cultures are pending. He is on meropenem (5) Hydroureteronephrosis: Code(s): N13.30 - Unspecified hydronephrosis Status: Acute Assessment and Plan: Dr. Vincent is going to see today. I asked the patient not to eat or drink anything after now in case goes to a procedure after Dr. Vincent sees him. 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 (8) Hypertension: Code(s): I10 - Essential (primary) hypertension Status: Acute Assessment and Plan: Blood pressure is doing well (9) Hyperlipidemia: Code(s): E78.5 - Hyperlipidemia, unspecified Status: Acute Assessment and Plan: he gets atorvastatin as an outpatient (10) Crohn's disease: Code(s): K50.90 - Crohn's disease, unspecified, without complications Status: Acute History of Present Illness Reason for Consult Consult date: 02/18/25 Chief Complaint Chief complaint: ARF versus MERI on CKD; hyperkalemia; UTI History of Present Illness Narrative: Ganesh is a very pleasant 74-year-old gentleman who has chronic kidney disease, Crohn's disease, hyperlipidemia, restless legs, hypertension, status post nephrectomy due to infection and stones, and primary signet ring cell carcinoma of the Colorectal region in 2005 which is now in remission. The patient has an ileostomy as a result of this. the patient has chronic kidney disease. He has been seeing Dr. Dixon every 6 months or so. This has been stable he says but can not remember the exact number. Someone told the person who took the history and physical that the creatinine was in threes. the patient was doing well until recently when he had a fever. Had chills and a cough as well this had been going on for a few days. He went to urgent care 5 days ago and they told me had a bladder infection was placed on Bactrim. At 1st he felt better than started getting worse again so came to the ER. Here he had labs checked and his creatinine was in the 4s. His urine showed pyuria. His ultrasound shows hydronephrosis. The patient was admitted. He has been given some IV fluids and antibiotics. Urology has been consulted Review of Systems Constitutional: Constitutional: Reports no additional constitutional complaints Eyes: Eyes: Reports no additional eye complaints ENT: Reports system reviewed and no additional complaints, except as documented Cardiovascular: Cardiovascular: Reports no additional cardiovascular complaints Respiratory: Respiratory: Reports no additional respiratory complaints Gastrointestinal: Gastrointestinal: Reports no additional gastrointestinal complaints Genitourinary: Genitourinary: Reports no additional male genitourinary complaints Musculoskeletal: Musculoskeletal: Reports no additional musculoskeletal complaints Integumentary/Breasts: Skin/Breast: Reports system reviewed and no additional complaints, except as docu Neurologic: Reports system reviewed and no additional complaints, except as documented Psychiatric: Psychiatric: Reports no additional psychiatric complaints Endocrine: Endocrine: Reports no additional endocrine complaints [facility] Past Medical History Medical History Chronic kidney disease 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 (2005) status post neoadjuvant chemo radiation, total colectomy, and partial small-bowel resection Hypertension Restless leg syndrome Hyperlipidemia Crohn's disease Surgical History Surgical History History of ileostomy History of total colectomy (2005) and partial small-bowel resection with ileostomy for signet cell carcinoma History of left nephrectomy for poorly functioning kidney and what sounds like matrix stone formation Family History Family History Other Diabetes mellitus Heart disease Hypertension Social History Social History Social History: Surrogate medical decision maker: Corine Vásquez, spouse. Code status: Full code. Smoking status: Never smoker Alcohol intake: current Drinks per week: 2 Substance use: never Substance use type: does not use Do You Feel Safe in your Home?: Yes Lack of Transportation: No Lack of Food: Never True Current Housing: I Have Housing Concerned About Future Housing: No Difficulty Paying Gas/Electric Bills: No Difficulty Paying for Meds: No Currently Unemployed: No Education: Don't Know Difficulty w/ Childcare or Family Care: No Living arrangements: with family Additional living arrangements comments: Lives with spouse in [place]. 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: No Meds Home Medications and Allergies Home Medications ?Medication ?Instructions ?Recorded ?Confirmed ?Type amlodipine 10 mg tablet 10 mg PO DAILY 11/28/19 02/18/25 History atorvastatin 20 mg tablet 20 mg PO DAILY 11/28/19 02/18/25 History irbesartan 75 mg tablet 75 mg PO DAILY 11/28/19 02/18/25 History magnesium chloride 71.5 mg 71.5 mg PO DAILY 11/28/19 02/18/25 History (magnesium chloride) tablet,delayed release (Nu-Mag) omeprazole 20 mg capsule,delayed 20 mg PO DAILY 11/28/19 02/18/25 History release ropinirole 3 mg tablet 3 mg PO HS 11/28/19 02/18/25 History sitagliptin phosphate 50 mg tablet 50 mg PO DAILY 11/28/19 02/18/25 History (Januvia) cholecalciferol (vitamin D3) 25 25 mcg PO DAILY 02/18/25 02/18/25 History mcg (1,000 unit) capsule cyanocobalamin (vitamin B-12) 2,000 mcg PO DAILY 02/18/25 02/18/25 History 1,000 mcg capsule Allergies Allergy/AdvReac Type Severity Reaction Status Date / Time No Known Allergies Allergy Verified 02/17/25 14:30 Vital Signs Vital Signs - 24 hr 02/17/25 16:33 02/17/25 18:25 02/17/25 19:00 Temperature 97.9 F Pulse Rate 79 68 66 Respiratory Rate 16 19 19 Blood Pressure 94/80 L 113/67 Pulse Oximetry 97 97 Oxygen Delivery 02/17/25 19:00 02/17/25 19:12 02/17/25 19:13 Temperature Pulse Rate 68 98 Respiratory Rate Blood Pressure Pulse Oximetry 100 Oxygen Delivery Room Air 02/17/25 19:13 02/17/25 20:40 02/17/25 21:11 Temperature 98 F Pulse Rate 108 H 98 102 H Respiratory Rate 20 12 16 Blood Pressure 113/67 142/69 H Pulse Oximetry 98 100 Oxygen Delivery 02/17/25 21:35 02/17/25 21:35 02/17/25 23:34 Temperature 98.5 F 98 F 98.3 F Pulse Rate 93 Respiratory Rate 16 Blood Pressure 123/65 Pulse Oximetry 95 Oxygen Delivery 02/18/25 00:36 02/18/25 00:59 02/18/25 01:30 Temperature 99.2 F 99.2 F Pulse Rate 86 86 Respiratory Rate 18 18 Blood Pressure 124/63 Pulse Oximetry 94 94 Oxygen Delivery Room Air 02/18/25 05:09 02/18/25 06:28 02/18/25 07:30 Temperature 97.7 F Pulse Rate 75 75 78 Respiratory Rate 18 16 16 Blood Pressure 113/51 L Pulse Oximetry 95 Oxygen Delivery 02/18/25 08:26 02/18/25 08:35 Temperature 98.8 F Pulse Rate Respiratory Rate Blood Pressure Pulse Oximetry 95 Oxygen Delivery Room Air Exam Narrative: Exam Narrative: Well developed well-nourished male in no acute distress Skin is warm and dry without rash Head normocephalic atraumatic Eyes normal sclerae and conjunctivae Mouth normal lips teeth and gums Neck no nodes no thyromegaly no carotid bruits Axillae no nodes Back no CVA tenderness Lungs symmetric and clear to auscultation and percussion Heart regular rate and rhythm without rub or gallop Abdomen bowel sounds positive soft nontender, no HSM, masses, or bruits. Extremities no cyanosis, clubbing, or edema Pulses 2+ equal in radial arteries Psychological not anxious or depressed Neuro alert and oriented x3 motor 5/5 cranial nerves 2-12 intact reflexes 2+ and equal in the biceps and patellar tendons cerebellar normal rapid alternating movements Results Lab Results 02/18/25 07:47 02/18/25 07:47 Lab results: Most recent lab results Calcium 8.7 mg/dL (8.4-10.2) 02/18/25 04:53 Phosphorus 4.3 mg/dL (2.5-4.5) 02/18/25 04:53 Magnesium 1.4 mg/dL (1.6-2.3) L 02/18/25 04:53
[2025-02-18 11:03] LABS: Creatine Kinase 64 U/L (55-170)
[2025-02-18 12:46] LABS: Anion Gap 13 mmol/L (4-12); Blood Urea Nitrogen 59 mg/dL (9-20); Carbon Dioxide 16 mmol/L (22-30); Chloride 106 mmol/L (98-107); Estimated CRCL calculation 15 ml/min; Estimated Glomerular Filt Rate 15; Glucose 178 mg/dL (65-110); Potassium 5.3 mmol/L (3.4-5.0); Sodium 135 mmol/L (137-145)
[2025-02-18 12:48] LABS: Creatinine Urine 76.7 mg/dL; Total Protein Urine Random 84 mg/dL
[2025-02-18 12:53] LABS: Eosinophil Urine None Seen % (None Seen); Urine Eos QC 2nd Tech Confirmed
[2025-02-18 13:33] LABS: Creatinine Urine 77.4 mg/dL; Potassium Urine Random 29.3 meq/L; Sodium Urine Random 31 meq/L
--- NOTE | 2025-02-18 14:20 | P.CONUR_ITS ---
Assessment and Plan Assessment and plan (1) History of left nephrectomy: Code(s): Z90.5 - Acquired absence of kidney Status: Acute (2) Acute renal failure: Code(s): N17.9 - Acute kidney failure, unspecified Status: Acute (3) Hydroureteronephrosis: Code(s): N13.30 - Unspecified hydronephrosis Status: Acute (4) Acute on chronic kidney failure: Code(s): N17.9 - Acute kidney failure, unspecified; N18.9 - Chronic kidney disease, unspecified Status: Acute (5) UTI (urinary tract infection): Code(s): N39.0 - Urinary tract infection, site not specified Status: Acute Assessment and Plan: This is a very pleasant 74-year-old with complicated urologic history. He is admitted with UTI and acute on chronic renal insufficiency. Solitary right kidney with hydroureteronephrosis, no stone identified. Creatinine improved from 4.2 to 3.9 today. Patient continues to make urine. 16 F Uriarte catheter placed Plan -I had a long discussion with the patient, his as well as Dr. Alfonso from Nephrology. Currently the patient is afebrile, making urine, and having some improvement of his renal function. We discussed options of continued observation with antibiotics versus ureteral stent insertion to help drain his hydronephrotic right kidney and help clear infection. The patient did eat earlier today and additionally appears to be clinically improving, we therefore have elected to closely observe. Patient to remain NPO at midnight and plan repeat CT scan tomorrow morning. We will monitor for any fevers, worsening laboratory values, continued hydronephrosis on imaging and if present Proceed with right-sided ureteral stent insertion in the morning. 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 He has a complex urologic history. He has hypospadias with multiple corrective surgeries the child. Patient with history of multiple left-sided stones and infections and underwent left nephrectomy at [facility] in 2011. Since that time the patient states he has not had significant stone disease. He has a history of chronic renal insufficiency managed at [facility], thinks his baseline creatinine is in the 3 range. The patient has been under the care of [facility] and underwent InterStim placement approximately a year ago, which patient states did not help his urinary frequency/urgency. The patient was in his normal state health until approximately 2 weeks ago when he had chills and a cough, he was found to have a UTI at urgent care and started on Bactrim. He took a 5 day course. Patient again felt ill last night with chills and presented to the emergency department [facility]. He was found to have creatinine elevation and CT scan showing hydronephrosis of his solitary kidney. Patient was admitted to the hospital and started on IV antibiotics. Urology was called today for consultation. [facility] Past Medical History Medical History Chronic kidney disease 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 (2005) status post neoadjuvant chemo radiation, total colectomy, and partial small- bowel resection Hypertension Restless leg syndrome Hyperlipidemia Crohn's disease Surgical History Surgical History History of ileostomy History of total colectomy (2005) and partial small-bowel resection with ileostomy for signet cell carcinoma History of left nephrectomy for poorly functioning kidney and what sounds like matrix stone formation Family History Family History Other Diabetes mellitus Heart disease Hypertension Social History Social History Social History: Surrogate medical decision maker: Corine Vásquez, spouse. Code status: Full code. Smoking status: Never smoker Alcohol intake: current Drinks per week: 2 Substance use: never Substance use type: does not use Do You Feel Safe in your Home?: Yes Lack of Transportation: No Lack of Food: Never True Current Housing: I Have Housing Concerned About Future Housing: No Difficulty Paying Gas/Electric Bills: No Difficulty Paying for Meds: No Currently Unemployed: No Education: Don't Know Difficulty w/ Childcare or Family Care: No Living arrangements: with family Additional living arrangements comments: Lives with spouse in [place]. 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: No Meds Home Medications and Allergies Home Medications ?Medication ?Instructions ?Recorded ?Confirmed ?Type amlodipine 10 mg tablet 10 mg PO DAILY 11/28/19 02/18/25 History atorvastatin 20 mg tablet 20 mg PO DAILY 11/28/19 02/18/25 History irbesartan 75 mg tablet 75 mg PO DAILY 11/28/19 02/18/25 History magnesium chloride 71.5 mg 71.5 mg PO DAILY 11/28/19 02/18/25 History (magnesium chloride) tablet,delayed release (Nu-Mag) omeprazole 20 mg capsule,delayed 20 mg PO DAILY 11/28/19 02/18/25 History release ropinirole 3 mg tablet 3 mg PO HS 11/28/19 02/18/25 History sitagliptin phosphate 50 mg tablet 50 mg PO DAILY 11/28/19 02/18/25 History (Januvia) cholecalciferol (vitamin D3) 25 25 mcg PO DAILY 02/18/25 02/18/25 History mcg (1,000 unit) capsule cyanocobalamin (vitamin B-12) 2,000 mcg PO DAILY 02/18/25 02/18/25 History 1,000 mcg capsule Allergies Allergy/AdvReac Type Severity Reaction Status Date / Time No Known Allergies Allergy Verified 02/17/25 14:30 Vital Signs Vital Signs - 24 hr 02/17/25 16:33 02/17/25 18:25 02/17/25 19:00 Temperature 36.6 C Pulse Rate 79 68 66 Respiratory Rate 16 19 19 Blood Pressure 94/80 L 113/67 Pulse Oximetry 97 97 Oxygen Delivery 02/17/25 19:00 02/17/25 19:12 02/17/25 19:13 Temperature Pulse Rate 68 98 Respiratory Rate Blood Pressure Pulse Oximetry 100 Oxygen Delivery Room Air 02/17/25 19:13 02/17/25 20:40 02/17/25 21:11 Temperature 36.6 C Pulse Rate 108 H 98 102 H Respiratory Rate 20 12 16 Blood Pressure 113/67 142/69 H Pulse Oximetry 98 100 Oxygen Delivery 02/17/25 21:35 02/17/25 21:35 02/17/25 23:34 Temperature 36.9 C 36.6 C 36.8 C Pulse Rate 93 Respiratory Rate 16 Blood Pressure 123/65 Pulse Oximetry 95 Oxygen Delivery 02/18/25 00:36 02/18/25 00:59 02/18/25 01:30 Temperature 37.3 C 37.3 C Pulse Rate 86 86 Respiratory Rate 18 18 Blood Pressure 124/63 Pulse Oximetry 94 94 Oxygen Delivery Room Air 02/18/25 05:09 02/18/25 06:28 02/18/25 07:30 Temperature 36.5 C Pulse Rate 75 75 78 Respiratory Rate 18 16 16 Blood Pressure 113/51 L Pulse Oximetry 95 Oxygen Delivery 02/18/25 08:00 02/18/25 08:26 02/18/25 08:35 Temperature 37.1 C Pulse Rate 116 H Respiratory Rate Blood Pressure Pulse Oximetry 95 Oxygen Delivery Room Air 02/18/25 08:45 02/18/25 12:00 02/18/25 13:24 Temperature 37.1 C Pulse Rate 78 77 Respiratory Rate 18 Blood Pressure 117/60 Pulse Oximetry 98 Oxygen Delivery Room Air Exam 2 Narrative: Patient is awake and alert. He is in no acute distress however is having some chills. His breathing is unlabored. His abdomen is soft nontender nondistended, there is left-sided ileostomy in place. The patient with a ventral hypospadias to the coronal margin. Procedure: After the patient was prepped and draped a 16 F Uriarte catheter was inserted with minimal resistance there was return yellow urine with some debris. Catheter was left to gravity drainage. Results Labs 02/18/25 07:47 02/18/25 12:30 Labs: Short CBC 02/17/25 02/18/25 Range/Units 16:32 07:47 WBC 21.9 H 24.6 H (4.5-10.0) K/mm3 Hgb 11.4 L 9.8 L (14.0-18.0) g/dL Hct 35.5 L 31.3 L (42.0-52.0) % Plt Count 243 D 170 (150-375) k/mm3 BMP 02/17/25 02/17/25 02/18/25 16:32 22:05 04:53 Sodium 137 141 136 L Potassium 6.5 H* 5.4 H 6.7 H* Chloride 110 H 110 H 109 H Carbon Dioxide 10 L 12 L 15 L BUN 70 H D 62 H 65 H Creatinine 4.21 H 4.32 H 4.15 H Glucose 101 174 H 144 H Calcium 9.2 9.3 8.7 02/18/25 02/18/25 07:47 12:30 Sodium 135 L Potassium 5.3 H 5.3 H Chloride 106 Carbon Dioxide 16 L BUN 59 H Creatinine 3.96 H Glucose 178 H Calcium 9.0 Cardiac Enzymes 02/17/25 02/18/25 02/18/25 Range/Units 22:05 04:53 04:53 Total Creatine Kinase 54 L 60 64 (55-170) U/L Liver Function 02/17/25 02/18/25 Range/Units 16:32 04:53 Total Bilirubin 0.7 0.5 (0.2-1.3) mg/dL AST 54 30 (17-59) U/L ALT 112 H 75 H (6-50) U/L Alkaline Phosphatase 146 H 105 (38-126) U/L Albumin 4.2 3.2 L (3.5-5.1) g/dL Urine 02/17/25 Range/Units 19:07 Urine Color Yellow (Yellow) Urine Appearance Cloudy H (Clear) Urine pH 5.0 (5.0-9.0) Ur Specific [place] 1.015 (1.001-1.035) Urine Protein 3+ H (Negative) mg/dL Urine Glucose (UA) Negative (Negative) mg/dL Ordering Physician: Irena Polo MD Date of Service: 02/17/25 Procedure(s): CT chest abdomen pelvis wo [facility] Accession Number(s): [id number] cc: Irena Polo MD; UNKNOWN,DOCTOR~ CLINICAL INDICATION: Acute renal failure, transaminitis, leukocytosis COMPARISON: None. TECHNIQUE: Multiple contiguous axial images of the chest, abdomen and pelvis were performed without the administration of intravenous contrast The dose-length product (DLP) was 465.72 mGy-cm. Automated exposure control and iterative reconstruction technique were employed. FINDINGS/OBSERVATIONS: LUNG: The lungs are clear. MEDIASTINUM: Limited evaluation without intravenous contrast. HEART: The heart is of normal size, without pericardial effusion. SOFT TISSUES OF THE CHEST: Unremarkable. Liver: The liver demonstrates homogeneous attenuation and is not enlarged measuring 14 cm in longitudinal dimension. Gallbladder and biliary system: The gallbladder is only minimally distended, and otherwise unremarkable. Pancreas: Limited evaluation of the pancreas secondary to the lack of intravenous contrast. Spleen: The spleen demonstrates homogeneous attenuation and is not enlarged measuring 13 cm in longitudinal dimension. Kidneys: The left kidney is surgically absent. Significant right-sided hydroureteronephrosis extending to the bladder without an obstructing stone identified. The bladder is significantly decompressed with surrounding inflammatory change. Adrenal glands: Unremarkable. Gastrointestinal tract: The colon is surgically absent. Appendix: Surgically absent. Vasculature: Unremarkable. Lymph nodes: Limited evaluation without intravenous contrast. Pelvic structures: As above. Body wall and musculoskeletal: Significant degenerative disease within the lumbosacral spine with osteophyte formation, disc space narrowing, ankylosis and vacuum phenomena. Small bowel stoma to the left of midline. IMPRESSION: Significant right-sided hydroureteronephrosis without an obstructing stone visualized. Reviewed, dictated and finalized at location A.
[2025-02-18] MEDS: rOPINIRole HCL 1 MG TABLET 3 MG PO (20:29)
[2025-02-19] VITALS (17 sets, daily range): BP systolic 84–162; BP diastolic 46–74; PULSE 64–85; RESP 16–23; TEMP 36.4–37.2; O2SAT 95–100
[2025-02-19 05:58] LABS: Basophils Percent Auto 0.1 % (0.2-1.2); Eosinophils Absolute Auto 0.1 K/mm3 (0-0.3); Eosinophils Percent Auto 0.4 % (0-4.4); Hematocrit 29.2 % (42.0-52.0); Hemoglobin 9.1 g/dL (14.0-18.0); Immature Granulocyte Absolute 0.15 K/mm3 (0.00-0.031); Immature Granulocyte Percent A 0.9 % (0-0.5); Lymphocytes Absolute Auto 0.54 K/mm3 (0.9-3.2); Lymphocytes Percent Auto 3.2 % (18.3-44.2); Mean Corpuscular HGB Conc 31.2 g/dl (32-36); Mean Corpuscular Hemoglobin 29.8 pg (26-34); Mean Corpuscular Volume 95.7 fl (80-100); Mean Platelet Volume 10.7 fl (7.4-10.4); Monocytes Absolute Auto 0.7 K/mm3 (0.1-0.6); Monocytes Percent Auto 4.1 % (2.6-8.5); Neutrophils Absolute Auto 15.4 K/mm3 (1.3-6.7); Neutrophils Percent Auto 91.3 % (45.5-73.1); Platelet Count Result 161 k/mm3 (150-375); Red Blood Count 3.05 M/mm3 (4.6-6.20); Red Cell Distribution Width 14.6 % (11.5-14.5); White Blood Count 16.9 K/mm3 (4.5-10.0)
[2025-02-19 06:16] LABS: Alanine Aminotransferase 49 U/L (6-50); Albumin Level 3.2 g/dL (3.5-5.1); Alkaline Phosphatase 114 U/L (38-126); Anion Gap 14 mmol/L (4-12); Aspartate Amino Transferase 20 U/L (17-59); Bilirubin,Total 0.6 mg/dL (0.2-1.3); Blood Urea Nitrogen 57 mg/dL (9-20); Calcium 9.1 mg/dL (8.4-10.2); Carbon Dioxide 16 mmol/L (22-30); Chloride 107 mmol/L (98-107); Estimated CRCL calculation 15 ml/min; Estimated Glomerular Filt Rate 14; Glucose 120 mg/dL (65-110); Potassium 5.3 mmol/L (3.4-5.0); Sodium 137 mmol/L (137-145)
--- NOTE | 2025-02-19 06:51 | P.PNIM_ITS ---
Progress Note: A&P Assessment and Plan (1) Sepsis: Code(s): A41.9 - Sepsis, unspecified organism Status: Acute Assessment and Plan: Meets SIRS criteria: hypotension, leukocytosis, meri - lactic acid: 1.5 - Received sepsis bolus in the ED - antibiotics: meropenem 500 q12 given renal function this is the appropriate dose for blood stream infection - suspected source: UTI - blood cultures drawn on 02/17: ecoli sensitivities pending - UA: cloudy appearance with 3+ protein, 2+ blood, 2+ leukocytes, 6-10 RBC, > 100 WBC, 4+ bacteria - Urine culture: ecoli - CXR unremarkable - Chest/abdomen/pelvis CT: Significant right-sided hydroureteronephrosis without an obstructing stone visualized. Vitals stable, hypotension and fever resolved. WBC improving. See plan below. (2) Urinary tract infection: Code(s): N39.0 - Urinary tract infection, site not specified Status: Acute Assessment and Plan: Previously treated bactrim on 02/06 for concern of UTI. - UA: cloudy appearance with 3+ protein, 2+ blood, 2+ leukocytes, 6-10 RBC, > 100 WBC, 4+ bacteria - Urine culture: ecoli - previous micro reviewed 11/28/19: Klebsiella pneumoniae panresistant except to meropenem - started on meropenem on 02/17, adjust medication per sensitivities (3) Acute on chronic kidney failure: Code(s): N17.9 - Acute kidney failure, unspecified; N18.9 - Chronic kidney disease, unspecified Status: Acute Assessment and Plan: Etiology of his worsening renal function is not entirely clear however this is likely due to a combination of factors including sepsis from urinary tract infection, dehydration from poor appetite and insensible losses from fevers, and hypoperfusion from relative hypotension. - BUN/Cr 62/4.32 on GFR 13 on admission, now 57/4.10 on am labs - CK WNL - Renal US: Enlarged right kidney with moderate hydronephrosis. Possible 11 mm cyst. - Avoid nephrotoxic medications - Renally dose medications - NS 75 ml/hr - Monitor I/O. Current UOP WNL. - Nephrology consulted (4) Hydroureteronephrosis: Code(s): N13.30 - Unspecified hydronephrosis Status: Acute Assessment and Plan: - Chest/abdomen/pelvis CT: Significant right-sided hydroureteronephrosis without an obstructing stone visualized. - Urology consulted Repeat CT showed redemonstration of significant right-sided hydroureteronephrosis with induration at the level of the bladder in the presacral space with extension anteriorly, possibly the source of patient's obstruction. S/p Cystoscopy, right retrograde pyelogram, right ureteral stent insertion on 02/[address] Brown (5) Electrolyte abnormality: Code(s): E87.8 - Other disorders of electrolyte and fluid balance, not elsewhere classified Status: Acute Assessment and Plan: K 6.5 on admission. Hyperkalemia is related to acidosis from worsening renal function and likely the Bactrim. Given albuterol, lokelma 10 mg, and insulin 5 units x2. K improved to 5.4. Given another dose of lokelma. K 6.7 on 02/18 am labs. Given albuterol and another lokelma. K improved to 5.3. K remains at 5.3 on am labs. Magnesium was low as well at 1.0 on admission. Supplemented. Continue to monitor. Nephrology consulted (6) Metabolic acidosis: Code(s): E87.20 - Acidosis, unspecified Status: Acute Assessment and Plan: Bicarb 10 on admission. VBG: pH 7.3, pCO2 31.9, pO2 50.4, and HCO3 15.3. Given 50 Meq Bicarb x2. Bicarb 15 on 02/19 am labs. Given 50 Meq bicarb x1. Bicarb 16 on am labs. Started on oral bicarb per nephrology. (7) Hypertension: Code(s): I10 - Essential (primary) hypertension Status: Acute Assessment and Plan: Chronic Hypotensive on arrival, responded well to fluids. Resume amlodipine 10 mg daily and continue holding irbesartan 75 mg daily for ongoing MERI, resume when appropriate Blood pressures reviewed and currently stable. Time Spent With Patient Time with patient: 25 - 35 minutes Subjective Date/time seen: 02/19/25 06:51 Interval history: 74-year-old male with history of Crohn's disease, colon cancer status post total colectomy and partial small-bowel resection with ileostomy, left nephrectomy due to poor functioning kidney and what sounds like matrix stones, chronic kidney disease (baseline creatinine is ?in the threes, followed by Dr. Dixon at [facility]), hypertension, and hyperlipidemia who presented to the hospital via private vehicle with complaints of fever. Patient is pleasant lying at bedside. Patient underwent a cystoscopy with stent placement today with Urology. He has no complaints denies chest pain, shortness a breath, palpitations, nausea/vomiting and abdominal pain. Review of Systems Review of Systems: All systems reviewed & are unremarkable except as noted in HPI and below Exam Narrative: AF HR 67 RR 20 Spo2 95 BP 133/68 General: male in no acute respiratory distress who is nontoxic appearing, lying semi recumbent in bed. HEENT: Normocephalic. Atraumatic. Extraocular movement intact. Sclera clear and anicteric. No facial asymmetry. Chest: Lungs are clear to auscultation bilaterally. No wheezes or crackles. CV: Heart was regular rate and rhythm. Abd: Abdomen was soft. Nontender. Nondistended. Positive bowel sounds. : slight hematuria in sams following procedure Ext: No clubbing, cyanosis, or edema. DP pulses bilaterally. Neuro: Patient is alert and oriented x4. Speech is clear. Objective Data Vital Signs Vital Signs: Vital Signs - 24 hr 02/18/25 07:30 02/18/25 08:00 02/18/25 08:26 Temperature 98.8 F Pulse Rate 78 116 H Respiratory Rate 16 Blood Pressure Pulse Oximetry Oxygen Delivery 02/18/25 08:35 02/18/25 08:45 02/18/25 12:00 Temperature Pulse Rate 78 Respiratory Rate Blood Pressure Pulse Oximetry 95 Oxygen Delivery Room Air Room Air 02/18/25 13:24 02/18/25 16:00 02/18/25 20:00 Temperature 98.7 F Pulse Rate 77 90 Respiratory Rate 18 Blood Pressure 117/60 Pulse Oximetry 98 Oxygen Delivery Room Air 02/18/25 20:00 02/18/25 20:55 02/19/25 00:00 Temperature 98.5 F Pulse Rate 74 73 81 Respiratory Rate 14 Blood Pressure 121/60 Pulse Oximetry 96 Oxygen Delivery 02/19/25 04:00 02/19/25 05:06 Temperature 98.9 F Pulse Rate 75 85 Respiratory Rate 16 Blood Pressure 147/66 H Pulse Oximetry 96 Oxygen Delivery Intake/Output Intake/Output: Intake & Output 02/16/25 02/17/25 02/18/25 03/23/25 23:59 23:59 23:59 23:59 Intake Total 2150.0 3560 550 Output Total 2500 1400 Balance 2150.0 1060 -850 Meds/Results Medications: Active Medications Generic Name Dose Route Start Last Admin Trade Name Freq PRN Reason Stop Dose Admin Acetaminophen 650 mg 02/18/25 05:26 02/18/25 17:23 Acetaminophen 325 Mg Tablet PO 650 mg Q6H PRN Administration Mild Pain (1-3) or Fever Heparin Sodium (Porcine) 5,000 units 02/18/25 09:00 02/18/25 20:30 Heparin Sodium 5,000 Units/Ml Vial SUB-Q 5,000 units Q12HR KIRSTEN Administration Meropenem 500 mg in 100 mls @ 200 mls/hr 02/18/25 09:00 02/18/25 20:29 IVPB 200 mls/hr Q12H KIRSTEN Administration Lactated Ringer's 1,000 mls @ 75 mls/hr 02/18/25 05:30 02/18/25 20:28 Lr - Lactated Ringers Iv IV CONT 75 mls/hr .[id number] KIRSTEN Administration Ondansetron HCl 4 mg 02/17/25 22:27 Ondansetron Inj 4 Mg/2 Ml Vial IV PUSH Q4H PRN Nausea Ropinirole HCl 3 mg 02/18/25 21:00 02/18/25 20:29 Ropinirole Hcl 1 Mg Tablet PO 3 mg HS KIRSTEN Administration Radiology Results: ITS Impressions Chest X-Ray 02/17/25 16:46 IMPRESSION: 1: NO ACUTE CARDIOPULMONARY DISEASE. Chest/Abdomen/Pelvis CT 02/17/25 20:23 IMPRESSION: Significant right-sided hydroureteronephrosis without an obstructing stone visualized. Renal Ultrasound 02/18/25 08:52 Impression: 1: Enlarged right kidney with moderate hydronephrosis. Possible 11 mm cyst. Labs Labs: Laboratory Results - last 24 hr 02/18/25 02/18/25 02/18/25 04:53 05:32 06:45 WBC RBC Hgb Hct MCV MCH MCHC RDW Plt Count MPV Immature Gran % (Auto) Neut % (Auto) Lymph % (Auto) [place] % (Auto) Eos % (Auto) Baso % (Auto) Lymph # (Auto) [place] # (Auto) Eos # (Auto) Baso # (Auto) Abs Immat Gran (auto) Absolute Neuts (auto) Absolute Nucleated RBC Nucleated RBC % ESR 81 H VBG pH 7.300 VBG pCO2 31.9 L VBG pO2 50.4 H VBG HCO3 15.3 L O2 Delivery Device Other device O2 Liters/Min 7.0 FiO2 48 Sodium Potassium Chloride Carbon Dioxide Anion Gap BUN Creatinine Estim Creat Clear Calc Estimated GFR Glucose Calcium Phosphorus Total Bilirubin AST ALT Alkaline Phosphatase Total Creatine Kinase 64 Total Protein Albumin Urine Eosinophils U Random Total Protein Ur Random Sodium Ur Random Potassium Urine Creatinine Protein/Creat Ratio 2 02/18/25 02/18/25 02/18/25 07:47 11:47 11:47 WBC 24.6 H RBC 3.28 L Hgb 9.8 L Hct 31.3 L MCV 95.4 MCH 29.9 MCHC 31.3 L RDW 14.6 H Plt Count 170 MPV 10.1 Immature Gran % (Auto) 1.1 H Neut % (Auto) 92.4 H Lymph % (Auto) 3.6 L [place] % (Auto) 2.7 Eos % (Auto) 0.0 Baso % (Auto) 0.2 Lymph # (Auto) 0.88 L [place] # (Auto) 0.7 H Eos # (Auto) 0.0 Baso # (Auto) 0.0 Abs Immat Gran (auto) 0.27 H Absolute Neuts (auto) 22.7 H Absolute Nucleated RBC 0.000 Nucleated RBC % 0.0 ESR VBG pH VBG pCO2 VBG pO2 VBG HCO3 O2 Delivery Device O2 Liters/Min FiO2 Sodium Potassium 5.3 H Chloride Carbon Dioxide Anion Gap BUN Creatinine Estim Creat Clear Calc Estimated GFR Glucose Calcium Phosphorus Total Bilirubin AST ALT Alkaline Phosphatase Total Creatine Kinase Total Protein Albumin Urine Eosinophils U Random Total Protein Cancelled Ur Random Sodium 31 Cancelled Ur Random Potassium 29.3 Urine Creatinine 77.4 Protein/Creat Ratio 2 02/18/25 02/18/25 02/18/25 11:47 11:48 12:30 WBC RBC Hgb Hct MCV MCH MCHC RDW Plt Count MPV Immature Gran % (Auto) Neut % (Auto) Lymph % (Auto) [place] % (Auto) Eos % (Auto) Baso % (Auto) Lymph # (Auto) [place] # (Auto) Eos # (Auto) Baso # (Auto) Abs Immat Gran (auto) Absolute Neuts (auto) Absolute Nucleated RBC Nucleated RBC % ESR VBG pH VBG pCO2 VBG pO2 VBG HCO3 O2 Delivery Device O2 Liters/Min FiO2 Sodium 135 L Potassium 5.3 H Chloride 106 Carbon Dioxide 16 L Anion Gap 13 H BUN 59 H Creatinine 3.96 H Estim Creat Clear Calc 15 Estimated GFR 15 L Glucose 178 H Calcium 9.0 Phosphorus Total Bilirubin AST ALT Alkaline Phosphatase Total Creatine Kinase Total Protein Albumin Urine Eosinophils None seen U Random Total Protein 84 Ur Random Sodium Ur Random Potassium Urine Creatinine Cancelled 76.7 Protein/Creat Ratio 2 Cancelled 1.10 H 02/19/25 05:18 WBC RBC Hgb Hct MCV MCH MCHC RDW Plt Count MPV Immature Gran % (Auto) Neut % (Auto) Lymph % (Auto) [place] % (Auto) Eos % (Auto) Baso % (Auto) Lymph # (Auto) [place] # (Auto) Eos # (Auto) Baso # (Auto) Abs Immat Gran (auto) Absolute Neuts (auto) Absolute Nucleated RBC Nucleated RBC % ESR VBG pH VBG pCO2 VBG pO2 VBG HCO3 O2 Delivery Device O2 Liters/Min FiO2 Sodium 137 Potassium 5.3 H Chloride 107 Carbon Dioxide 16 L Anion Gap 14 H BUN 57 H Creatinine 4.10 H Estim Creat Clear Calc 15 Estimated GFR 14 L Glucose 120 H Calcium 9.1 Phosphorus 5.0 H Total Bilirubin 0.6 AST 20 ALT 49 Alkaline Phosphatase 114 Total Creatine Kinase Total Protein 7.0 Albumin 3.2 L Urine Eosinophils U Random Total Protein Ur Random Sodium Ur Random Potassium Urine Creatinine Protein/Creat Ratio 2 Quality VTE Prophylaxis VTE prophylaxis: mechanical ordered and pharmacologic ordered
--- NOTE | 2025-02-19 08:03 | P.PNAN_ITS ---
Anes - Initial Pre Proc Eval Procedure: Operation Date: 02/19/25 08:30 Proposed Procedures p Cysto, RPG, Stone Ext, Stent Placement(Right) - Johana Vincent MD Date/Time: 02/19/25 08:03 Surgeon: Dipti Washburn PA-C Pre Op Diagnosis: ARF versus MERI on CKD; hyperkalemia; UTI Patient Data Age: 74 Gender: M Height: 1.75 m Weight: 79.5 kg Last Vital Signs Temp 37.2 C 02/19/25 05:06 Pulse 85 02/19/25 05:06 Resp 16 02/19/25 05:06 BP 147/66 H 02/19/25 05:06 Pulse Ox 96 02/19/25 05:06 O2 Del Method Room Air 02/18/25 20:00 Allergies Allergy/AdvReac Type Severity Reaction Status Date / Time No Known Allergies Allergy Verified 02/17/25 14:30 Home Medications ?Medication ?Instructions ?Recorded ?Confirmed ?Type amlodipine 10 mg tablet 10 mg PO DAILY 11/28/19 02/18/25 History atorvastatin 20 mg tablet 20 mg PO DAILY 11/28/19 02/18/25 History irbesartan 75 mg tablet 75 mg PO DAILY 11/28/19 02/18/25 History magnesium chloride 71.5 mg 71.5 mg PO DAILY 11/28/19 02/18/25 History (magnesium chloride) tablet,delayed release (Nu-Mag) omeprazole 20 mg capsule,delayed 20 mg PO DAILY 11/28/19 02/18/25 History release ropinirole 3 mg tablet 3 mg PO HS 11/28/19 02/18/25 History sitagliptin phosphate 50 mg tablet 50 mg PO DAILY 11/28/19 02/18/25 History (Januvia) cholecalciferol (vitamin D3) 25 25 mcg PO DAILY 02/18/25 02/18/25 History mcg (1,000 unit) capsule cyanocobalamin (vitamin B-12) 2,000 mcg PO DAILY 02/18/25 02/18/25 History 1,000 mcg capsule Laboratory Tests 02/18/25 02/18/25 02/18/25 04:53 07:47 11:47 WBC 24.6 H K/mm3 (4.5-10.0) RBC 3.28 L M/mm3 (4.6-6.20) Hgb 9.8 L g/dL (14.0-18.0) Hct 31.3 L % (42.0-52.0) MCV 95.4 fl (80-100) MCH 29.9 pg (26-34) MCHC 31.3 L g/dl (32-36) RDW 14.6 H % (11.5-14.5) Plt Count 170 k/mm3 (150-375) MPV 10.1 fl (7.4-10.4) Immature Gran % (Auto) 1.1 H % (0-0.5) Neut % (Auto) 92.4 H % (45.5-73.1) Lymph % (Auto) 3.6 L % (18.3-44.2) [place] % (Auto) 2.7 % (2.6-8.5) Eos % (Auto) 0.0 % (0-4.4) Baso % (Auto) 0.2 % (0.2-1.2) Lymph # (Auto) 0.88 L K/mm3 (0.9-3.2) [place] # (Auto) 0.7 H K/mm3 (0.1-0.6) Eos # (Auto) 0.0 K/mm3 (0-0.3) Baso # (Auto) 0.0 K/mm3 (0.0-0.1) Abs Immat Gran (auto) 0.27 H K/mm3 (0.00-0.031) Absolute Neuts (auto) 22.7 H K/mm3 (1.3-6.7) Absolute Nucleated RBC 0.000 K/mm3 (0.0-0.012) Nucleated RBC % 0.0 % (0.0-0.2) Sodium Potassium 5.3 H mmol/L (3.4-5.0) Chloride Carbon Dioxide Anion Gap BUN Creatinine Estim Creat Clear Calc Estimated GFR Glucose Calcium Phosphorus Total Bilirubin AST ALT Alkaline Phosphatase Total Creatine Kinase 64 U/L (55-170) Total Protein Albumin Urine Eosinophils U Random Total Protein Cancelled Ur Random Sodium 31 meq/L Ur Random Potassium Urine Creatinine Protein/Creat Ratio 2 02/18/25 02/18/25 02/18/25 11:47 11:47 11:48 WBC RBC Hgb Hct MCV MCH MCHC RDW Plt Count MPV Immature Gran % (Auto) Neut % (Auto) Lymph % (Auto) [place] % (Auto) Eos % (Auto) Baso % (Auto) Lymph # (Auto) [place] # (Auto) Eos # (Auto) Baso # (Auto) Abs Immat Gran (auto) Absolute Neuts (auto) Absolute Nucleated RBC Nucleated RBC % Sodium Potassium Chloride Carbon Dioxide Anion Gap BUN Creatinine Estim Creat Clear Calc Estimated GFR Glucose Calcium Phosphorus Total Bilirubin AST ALT Alkaline Phosphatase Total Creatine Kinase Total Protein Albumin Urine Eosinophils None seen % (None Seen) U Random Total Protein 84 mg/dL Ur Random Sodium Cancelled Ur Random Potassium 29.3 meq/L Urine Creatinine 77.4 mg/dL Cancelled 76.7 mg/dL Protein/Creat Ratio 2 Cancelled 1.10 H mg/mg (0-0.20) 02/18/25 02/19/25 12:30 05:18 WBC 16.9 H K/mm3 (4.5-10.0) RBC 3.05 L M/mm3 (4.6-6.20) Hgb 9.1 L g/dL (14.0-18.0) Hct 29.2 L % (42.0-52.0) MCV 95.7 fl (80-100) MCH 29.8 pg (26-34) MCHC 31.2 L g/dl (32-36) RDW 14.6 H % (11.5-14.5) Plt Count 161 k/mm3 (150-375) MPV 10.7 H fl (7.4-10.4) Immature Gran % (Auto) 0.9 H % (0-0.5) Neut % (Auto) 91.3 H % (45.5-73.1) Lymph % (Auto) 3.2 L % (18.3-44.2) [place] % (Auto) 4.1 % (2.6-8.5) Eos % (Auto) 0.4 % (0-4.4) Baso % (Auto) 0.1 L % (0.2-1.2) Lymph # (Auto) 0.54 L K/mm3 (0.9-3.2) [place] # (Auto) 0.7 H K/mm3 (0.1-0.6) Eos # (Auto) 0.1 K/mm3 (0-0.3) Baso # (Auto) 0.0 K/mm3 (0.0-0.1) Abs Immat Gran (auto) 0.15 H K/mm3 (0.00-0.031) Absolute Neuts (auto) 15.4 H K/mm3 (1.3-6.7) Absolute Nucleated RBC 0.000 K/mm3 (0.0-0.012) Nucleated RBC % 0.0 % (0.0-0.2) Sodium 135 L mmol/L 137 mmol/L (137-145) (137-145) Potassium 5.3 H mmol/L 5.3 H mmol/L (3.4-5.0) (3.4-5.0) Chloride 106 mmol/L 107 mmol/L (98-107) (98-107) Carbon Dioxide 16 L mmol/L 16 L mmol/L (22-30) (22-30) Anion Gap 13 H mmol/L 14 H mmol/L (4-12) (4-12) BUN 59 H mg/dL 57 H mg/dL (9-20) (9-20) Creatinine 3.96 H mg/dL 4.10 H mg/dL (0.7-1.3) (0.7-1.3) Estim Creat Clear Calc 15 ml/min 15 ml/min Estimated GFR 15 L 14 L (59 - ) (59 - ) Glucose 178 H mg/dL 120 H mg/dL (65-110) (65-110) Calcium 9.0 mg/dL 9.1 mg/dL (8.4-10.2) (8.4-10.2) Phosphorus 5.0 H mg/dL (2.5-4.5) Total Bilirubin 0.6 mg/dL (0.2-1.3) AST 20 U/L (17-59) ALT 49 U/L (6-50) Alkaline Phosphatase 114 U/L (38-126) Total Creatine Kinase Total Protein 7.0 g/dL (6.3-8.2) Albumin 3.2 L g/dL (3.5-5.1) Urine Eosinophils U Random Total Protein Ur Random Sodium Ur Random Potassium Urine Creatinine Protein/Creat Ratio 2 Patient hx anesthesia problems: none Family hx anesthesia problems: none Results Review: All pre-operative results and documents have been reviewed as part of the pre- operative evaluation. 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 Code status: Full code. Smoking status: Never smoker Alcohol intake: current Drinks per week: 2 Substance use: never Substance use type: does not use Do You Feel Safe in your Home?: Yes Lack of Transportation: No Lack of Food: Never True Current Housing: I Have Housing Concerned About Future Housing: No Difficulty Paying Gas/Electric Bills: No Difficulty Paying for Meds: No Currently Unemployed: No Education: Don't Know Difficulty w/ Childcare or Family Care: No Living arrangements: with family Additional living arrangements comments: Lives with spouse in [place]. 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: No Anes - Eval Final PreProcedure Day of Procedure 02/19/25 08:03 Patient weight: normal Heart: regular rate and rhythm Lungs: clear to auscultation Airway: Mallampati scale class 1 Neurological: alert and oriented Last oral intake: >/= 8 hours ASA classification: III Emergent: no Anesthetic plan: proceed Anesthesia type and monitoring: general GIVS and standard monitoring Results Review: All pre-operative results and documents have been reviewed as part of the pre- operative evaluation. Informed Consent: The patient's anesthetic plan and its attendant risks and benefits were discussed with the patient/family/POA. Questions were solicited and answers provided to the satisfaction of the patient/family/POA.
--- NOTE | 2025-02-19 08:18 | WPDHPUPDATE1 ---
History and Physical Update Update Date/Time: 02/19/25 08:18 History and Physical has been reviewed, including an updated exam of the patient. There are NO changes in the patient's condition. Risks, benefits, and alternatives have been discussed and questions answered. Patient agrees to proceed with procedure.
[2025-02-19] MEDS: LIDOCAINE 2% GEL UROJET 10 ML PKG MUCOUS MEM (08:42)
--- NOTE | 2025-02-19 08:49 | W.PM.PROC2 ---
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 Patient taken the operating room. He received preoperative antibiotics on the floor. He was induced with anesthesia. He was placed in dorsal lithotomy position. He was prepped draped normal sterile fashion. A 22 F cystoscope was inserted through the urethra into the bladder. Inspection the bladder revealed an extremely patulous right ureteral orifice adjacent to it was a bladder diverticulum which was injected with contrast and blind-ending. A retrograde pyelogram was performed showing normal caliber ureter for approximately 4 to 5 cm and then a dilated ureter and moderate/severe hydro nephrosis. We were able to pass a Sensor wire into the kidney and over the wire passed a 6 F variable length stent with a curl in the renal pelvis and a curl in the bladder. A 16 F Uriarte catheter was inserted. Patient was awakened and taken to recovery room stable condition Urine Output 150 Complications No immediate complications Condition Stable Disposition PACU
[2025-02-19] MEDS: LACTATED RINGERS 1,000 ML 30 ML IV CONT (08:55)
[2025-02-19] MEDS: MEROPENEM 500 MG/NS 100 ML 500 MG/100 ML BAG 200 MG IVPB ×2 (09:05→21:31)
[2025-02-19 09:24] LABS: Glucose Point of Care 105 mg/dl (65-105)
--- NOTE | 2025-02-19 11:39 | PM.PNNEP ---
Progress Note: A&P Assessment and Plan (1) Acute on chronic kidney failure: Code(s): N17.9 - Acute kidney failure, unspecified; N18.9 - Chronic kidney disease, unspecified Status: Acute Assessment and Plan: the patient has chronic kidney disease. This is a result of the nephrectomy but also because of hypertension and probably vascular disease. Dr. Olvin Dixon at [facility] is following him for this. His last creatinine was 2.35 in December. the patient has new onset renal failure. His creatinine is now above 4. This is worse than his baseline. Urine electrolytes are pre renal. CPK is normal Renal ultrasound showed hydronephrosis He has several issues that might contribute to this. He was probably dehydrated. He is getting some IV fluids. Because of his high potassium which changed from LR to normal saline He has urosepsis; this could contribute as well. He was on Bactrim which can increase the potassium and creatinine because trimethoprim inhibits the secretion of both items. This has been discontinued and he is on a different antibiotic now. The patient has hydronephrosis. A stent was placed this morning. His urine output is in tremendous as would be expected if this were purely obstructive uropathy. However he does have underlying chronic kidney disease, and has bladder infection behind the obstruction, both of which would slow the urinary response to release of obstruction Will follow along. Will change LR to normal saline (2) Metabolic acidosis: Code(s): E87.20 - Acidosis, unspecified Status: Acute Assessment and Plan: the patient has a low bicarbonate level. He is off the bicarb IV. Will change to oral bicarb (3) Electrolyte abnormality: Code(s): E87.8 - Other disorders of electrolyte and fluid balance, not elsewhere classified Status: Acute Assessment and Plan: patient's potassium was high. Obstruction is relieved. He is off the Bactrim. He is getting IV fluids. Will follow this along (4) Urinary tract infection: Code(s): N39.0 - Urinary tract infection, site not specified Status: Acute Assessment and Plan: cultures of the urine showed E coli. The blood cultures had g negatives, which probably will be E coli as well. (5) Hydroureteronephrosis: Code(s): N13.30 - Unspecified hydronephrosis Status: Acute Assessment and Plan: Dr. Vincent placed a stent. 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 (8) Hypertension: Code(s): I10 - Essential (primary) hypertension Status: Acute Assessment and Plan: Blood pressure is doing well (9) Hyperlipidemia: Code(s): E78.5 - Hyperlipidemia, unspecified Status: Acute Assessment and Plan: he gets atorvastatin as an outpatient (10) Crohn's disease: Code(s): K50.90 - Crohn's disease, unspecified, without complications Status: Acute Subjective Date/time seen: 02/19/25 11:39 Interval history: Patient just had stent placed this morning. He still feels a little sleepy. is in the room and we discussed the case. Review of Systems Cardiovascular: Cardiovascular: Reports no additional cardiovascular complaints Respiratory: Respiratory: Reports no additional respiratory complaints Gastrointestinal: Gastrointestinal: Reports no additional gastrointestinal complaints Genitourinary: Genitourinary: Reports no additional male genitourinary complaints Exam Narrative: WDWN in NAD skin no rash head ncat lungs clear cor reg no rub abd BS+ nontender and soft ext no edema. Objective Data Vital Signs Vital Signs: Vital Signs - 24 hr 02/18/25 12:00 02/18/25 13:24 02/18/25 16:00 Temperature 98.7 F Pulse Rate 78 77 90 Respiratory Rate 18 Blood Pressure 117/60 Pulse Oximetry 98 Oxygen Delivery Oxygen Flow Rate 02/18/25 20:00 02/18/25 20:00 02/18/25 20:55 Temperature 98.5 F Pulse Rate 74 73 Respiratory Rate 14 Blood Pressure 121/60 Pulse Oximetry 96 Oxygen Delivery Room Air Oxygen Flow Rate 02/19/25 00:00 02/19/25 04:00 02/19/25 05:06 Temperature 98.9 F Pulse Rate 81 75 85 Respiratory Rate 16 Blood Pressure 147/66 H Pulse Oximetry 96 Oxygen Delivery Oxygen Flow Rate 02/19/25 08:00 02/19/25 08:55 02/19/25 09:10 Temperature 97.7 F Pulse Rate 81 69 75 Respiratory Rate 23 H 18 Blood Pressure 84/46 L 110/57 L Pulse Oximetry 99 100 Oxygen Delivery Simple Face Mask Simple Face Mask Oxygen Flow Rate 8 8 02/19/25 09:25 02/19/25 09:40 02/19/25 09:55 Temperature Pulse Rate 72 68 68 Respiratory Rate 18 18 18 Blood Pressure 135/64 138/70 138/69 Pulse Oximetry 100 96 95 Oxygen Delivery Room Air Room Air Room Air Oxygen Flow Rate 02/19/25 10:10 02/19/25 10:56 Temperature Pulse Rate 67 Respiratory Rate 20 Blood Pressure 133/68 Pulse Oximetry 95 Oxygen Delivery Room Air Room Air Oxygen Flow Rate Intake/Output Intake/Output: Intake & Output 02/16/25 02/17/25 02/18/25 02/19/25 23:59 23:59 23:59 23:59 Intake Total 2150.0 3660 950 Output Total 2500 1800 Balance 2150.0 1160 -850 Meds/Results Medications: Active Medications Generic Name Dose Route Start Last Admin Trade Name Freq PRN Reason Stop Dose Admin Acetaminophen 650 mg 02/18/25 05:26 02/18/25 17:23 Acetaminophen 325 Mg Tablet PO 650 mg Q6H PRN Administration Mild Pain (1-3) or Fever Fentanyl Citrate 25 mcg 02/19/25 08:06 Fentanyl Citrate Inj (*Crx) 100 Mcg/2 Ml Vial IV PUSH Q2M PRN Pain Heparin Sodium (Porcine) 5,000 units 02/18/25 09:00 02/18/25 20:30 Heparin Sodium 5,000 Units/Ml Vial SUB-Q 5,000 units Q12HR KIRSTEN Administration Meropenem 500 mg in 100 mls @ 200 mls/hr 02/18/25 09:00 02/19/25 09:22 IVPB Infused Q12H KIRSTEN Infusion Lactated Ringer's 1,000 mls @ 75 mls/hr 02/18/25 05:30 02/18/25 20:28 Lr - Lactated Ringers Iv IV CONT 75 mls/hr .[id number] KIRSTEN Administration Lactated Ringer's 1,000 mls @ 30 mls/hr 02/19/25 08:10 02/19/25 10:15 Lr - Lactated Ringers Iv IV CONT Infused .Q24H KIRSTEN Infusion Lactated Ringer's 1,000 mls @ 30 mls/hr 02/19/25 08:10 Lr - Lactated Ringers Iv IV CONT .Q24H KIRSTEN Ondansetron HCl 4 mg 02/17/25 22:27 Ondansetron Inj 4 Mg/2 Ml Vial IV PUSH Q4H PRN Nausea Ondansetron HCl 4 mg 02/19/25 08:06 Ondansetron Inj 4 Mg/2 Ml Vial IV PUSH ONCE PRN Nausea Ropinirole HCl 3 mg 02/18/25 21:00 02/18/25 20:29 Ropinirole Hcl 1 Mg Tablet PO 3 mg HS KIRSTEN Administration Radiology Results: ITS Impressions Chest X-Ray 02/17/25 16:46 IMPRESSION: 1: NO ACUTE CARDIOPULMONARY DISEASE. Chest/Abdomen/Pelvis CT 02/17/25 20:23 IMPRESSION: Significant right-sided hydroureteronephrosis without an obstructing stone visualized. Renal Ultrasound 02/18/25 08:52 Impression: 1: Enlarged right kidney with moderate hydronephrosis. Possible 11 mm cyst. Abdomen/Pelvis CT 02/19/25 06:47 IMPRESSION: Redemonstration of significant right-sided hydroureteronephrosis with induration at the level of the bladder in the presacral space with extension anteriorly, possibly the source of patient's obstruction. Remainder of the examination is grossly unchanged from previous study performed 36 and 24 hours earlier. Labs Labs: Laboratory Results - last 24 hr 02/18/25 02/18/25 02/18/25 11:47 11:47 11:47 WBC RBC Hgb Hct MCV MCH MCHC RDW Plt Count MPV Immature Gran % (Auto) Neut % (Auto) Lymph % (Auto) [place] % (Auto) Eos % (Auto) Baso % (Auto) Lymph # (Auto) [place] # (Auto) Eos # (Auto) Baso # (Auto) Abs Immat Gran (auto) Absolute Neuts (auto) Absolute Nucleated RBC Nucleated RBC % Sodium Potassium Chloride Carbon Dioxide Anion Gap BUN Creatinine Estim Creat Clear Calc Estimated GFR Glucose POC Capillary Glucose Calcium Phosphorus Total Bilirubin AST ALT Alkaline Phosphatase Total Protein Albumin Urine Eosinophils U Random Total Protein Cancelled Ur Random Sodium 31 Cancelled Ur Random Potassium 29.3 Urine Creatinine 77.4 Cancelled Protein/Creat Ratio 2 Cancelled 02/18/25 02/18/25 02/19/25 11:48 12:30 05:18 WBC 16.9 H RBC 3.05 L Hgb 9.1 L Hct 29.2 L MCV 95.7 MCH 29.8 MCHC 31.2 L RDW 14.6 H Plt Count 161 MPV 10.7 H Immature Gran % (Auto) 0.9 H Neut % (Auto) 91.3 H Lymph % (Auto) 3.2 L [place] % (Auto) 4.1 Eos % (Auto) 0.4 Baso % (Auto) 0.1 L Lymph # (Auto) 0.54 L [place] # (Auto) 0.7 H Eos # (Auto) 0.1 Baso # (Auto) 0.0 Abs Immat Gran (auto) 0.15 H Absolute Neuts (auto) 15.4 H Absolute Nucleated RBC 0.000 Nucleated RBC % 0.0 Sodium 135 L 137 Potassium 5.3 H 5.3 H Chloride 106 107 Carbon Dioxide 16 L 16 L Anion Gap 13 H 14 H BUN 59 H 57 H Creatinine 3.96 H 4.10 H Estim Creat Clear Calc 15 15 Estimated GFR 15 L 14 L Glucose 178 H 120 H POC Capillary Glucose Calcium 9.0 9.1 Phosphorus 5.0 H Total Bilirubin 0.6 AST 20 ALT 49 Alkaline Phosphatase 114 Total Protein 7.0 Albumin 3.2 L Urine Eosinophils None seen U Random Total Protein 84 Ur Random Sodium Ur Random Potassium Urine Creatinine 76.7 Protein/Creat Ratio 2 1.10 H 02/19/25 09:21 WBC RBC Hgb Hct MCV MCH MCHC RDW Plt Count MPV Immature Gran % (Auto) Neut % (Auto) Lymph % (Auto) [place] % (Auto) Eos % (Auto) Baso % (Auto) Lymph # (Auto) [place] # (Auto) Eos # (Auto) Baso # (Auto) Abs Immat Gran (auto) Absolute Neuts (auto) Absolute Nucleated RBC Nucleated RBC % Sodium Potassium Chloride Carbon Dioxide Anion Gap BUN Creatinine Estim Creat Clear Calc Estimated GFR Glucose POC Capillary Glucose 105 Calcium Phosphorus Total Bilirubin AST ALT Alkaline Phosphatase Total Protein Albumin Urine Eosinophils U Random Total Protein Ur Random Sodium Ur Random Potassium Urine Creatinine Protein/Creat Ratio 2
[2025-02-19] MEDS: SODIUM CHLORIDE 0.9% IV 1,000 ML 75 ML IV CONT (12:14)
[2025-02-19] MEDS: HEPARIN SODIUM 5,000 UNITS/ML VIAL 5000 UNITS SUB-Q ×2 (12:14→21:31)
[2025-02-19] MEDS: ACETAMINOPHEN 325 MG TABLET 650 MG PO (12:25)
[2025-02-19] MEDS: rOPINIRole HCL 1 MG TABLET 3 MG PO (21:32)
[2025-02-20] VITALS (10 sets, daily range): BP systolic 137–150; BP diastolic 61–72; PULSE 57–81; RESP 14–17; TEMP 36.6–37.2; O2SAT 94–99
[2025-02-20] MEDS: SODIUM CHLORIDE 0.9% IV 1,000 ML 75 ML IV CONT (02:02)
[2025-02-20] MEDS: ACETAMINOPHEN 325 MG TABLET 650 MG PO (04:14)
[2025-02-20 05:34] LABS: Basophils Percent Auto 0.3 % (0.2-1.2); Eosinophils Absolute Auto 0.1 K/mm3 (0-0.3); Eosinophils Percent Auto 1.2 % (0-4.4); Hemoglobin 7.8 g/dL (14.0-18.0); Immature Granulocyte Absolute 0.06 K/mm3 (0.00-0.031); Immature Granulocyte Percent A 0.6 % (0-0.5); Lymphocytes Absolute Auto 0.75 K/mm3 (0.9-3.2); Lymphocytes Percent Auto 7.1 % (18.3-44.2); Mean Corpuscular HGB Conc 31.2 g/dl (32-36); Mean Corpuscular Hemoglobin 29.9 pg (26-34); Mean Corpuscular Volume 95.8 fl (80-100); Mean Platelet Volume 10.7 fl (7.4-10.4); Monocytes Absolute Auto 0.6 K/mm3 (0.1-0.6); Monocytes Percent Auto 5.3 % (2.6-8.5); Neutrophils Absolute Auto 9.1 K/mm3 (1.3-6.7); Neutrophils Percent Auto 85.5 % (45.5-73.1); Platelet Count Result 143 k/mm3 (150-375); Red Blood Count 2.61 M/mm3 (4.6-6.20); Red Cell Distribution Width 14.4 % (11.5-14.5); White Blood Count 10.6 K/mm3 (4.5-10.0)
[2025-02-20 05:46] LABS: Alanine Aminotransferase 43 U/L (6-50); Albumin Level 2.8 g/dL (3.5-5.1); Alkaline Phosphatase 93 U/L (38-126); Anion Gap 10 mmol/L (4-12); Aspartate Amino Transferase 26 U/L (17-59); Bilirubin,Total 0.7 mg/dL (0.2-1.3); Blood Urea Nitrogen 58 mg/dL (9-20); Calcium 8.3 mg/dL (8.4-10.2); Carbon Dioxide 18 mmol/L (22-30); Chloride 105 mmol/L (98-107); Estimated CRCL calculation 16 ml/min; Estimated Glomerular Filt Rate 16; Glucose 83 mg/dL (65-110); Phosphorus 4.8 mg/dL (2.5-4.5); Potassium 4.8 mmol/L (3.4-5.0); Sodium 133 mmol/L (137-145)
--- NOTE | 2025-02-20 06:49 | P.PNIM_ITS ---
Progress Note: A&P Assessment and Plan (1) Sepsis: Code(s): A41.9 - Sepsis, unspecified organism Status: Acute Assessment and Plan: Meets SIRS criteria: hypotension, leukocytosis, meri - lactic acid: 1.5 - Received sepsis bolus in the ED - antibiotics: meropenem 500 q12 given renal function this is the appropriate dose for blood stream infection - suspected source: UTI - blood cultures drawn on 02/17: ecoli - UA: cloudy appearance with 3+ protein, 2+ blood, 2+ leukocytes, 6-10 RBC, > 100 WBC, 4+ bacteria - Urine culture: ecoli - CXR unremarkable - Chest/abdomen/pelvis CT: Significant right-sided hydroureteronephrosis without an obstructing stone visualized. Vitals stable, hypotension and fever resolved. WBC improving. See plan below. (2) Urinary tract infection: Code(s): N39.0 - Urinary tract infection, site not specified Status: Acute Assessment and Plan: Previously treated bactrim on 02/06 for concern of UTI. - UA: cloudy appearance with 3+ protein, 2+ blood, 2+ leukocytes, 6-10 RBC, > 100 WBC, 4+ bacteria - Urine culture: ecoli - previous micro reviewed 11/28/19: Klebsiella pneumoniae panresistant except to meropenem - started on meropenem on 02/17, discussed with ID pharmacy and transitioned to Augmentin on 02/20 (3) Acute on chronic kidney failure: Code(s): N17.9 - Acute kidney failure, unspecified; N18.9 - Chronic kidney disease, unspecified Status: Acute Assessment and Plan: Etiology of his worsening renal function is not entirely clear however this is likely due to a combination of factors including sepsis from urinary tract infection, dehydration from poor appetite and insensible losses from fevers, and hypoperfusion from relative hypotension. - BUN/Cr 62/4.32 on GFR 13 on admission, now 58/3.81 on am labs - CK WNL - Renal US: Enlarged right kidney with moderate hydronephrosis. Possible 11 mm cyst. - Avoid nephrotoxic medications - Renally dose medications - NS discontinued, patient having good oral intake. - Monitor I/O. Current UOP WNL. - Nephrology consulted (4) Hydroureteronephrosis: Code(s): N13.30 - Unspecified hydronephrosis Status: Acute Assessment and Plan: - Chest/abdomen/pelvis CT: Significant right-sided hydroureteronephrosis without an obstructing stone visualized. - Urology consulted Repeat CT showed redemonstration of significant right-sided hydroureteronephrosis with induration at the level of the bladder in the presacral space with extension anteriorly, possibly the source of patient's obstruction. S/p Cystoscopy, right retrograde pyelogram, right ureteral stent insertion on 02/[address] Brown (5) Electrolyte abnormality: Code(s): E87.8 - Other disorders of electrolyte and fluid balance, not elsewhere c lassified Status: Acute Assessment and Plan: K 6.5 on admission. Hyperkalemia is related to acidosis from worsening renal function and likely the Bactrim. Given albuterol, lokelma 10 mg, and insulin 5 units x2. K improved to 5.4. Given another dose of lokelma. K 6.7 on 02/18 am labs. Given albuterol and another lokelma. K improved to 5.3. K returned to normal on am labs at 4.8. Magnesium was low as well at 1.0 on admission. Supplemented. Continue to monitor. Nephrology consulted (6) Metabolic acidosis: Code(s): E87.20 - Acidosis, unspecified Status: Acute Assessment and Plan: Bicarb 10 on admission. VBG: pH 7.3, pCO2 31.9, pO2 50.4, and HCO3 15.3. Given 50 Meq Bicarb x2. Bicarb 15 on 02/19 am labs. Given 50 Meq bicarb x1. Bicarb 18 on am labs. Oral bicarb discontinued. (7) Hypertension: Code(s): I10 - Essential (primary) hypertension Status: Acute Assessment and Plan: Chronic Hypotensive on arrival, responded well to fluids. Resume amlodipine 10 mg daily and continue holding irbesartan 75 mg daily for ongoing MERI and hyperkalemia, resume when appropriate Blood pressures reviewed and currently stable. (8) Anemia: Code(s): D64.9 - Anemia, unspecified Status: Acute Assessment and Plan: Hgb 11.4 on admission, now 7.8 on am labs. Possibly dilutional as patient has been receiving IV fluids for ongoing MERI since admission however recent procedure and hematuria noted in sams catheter - Repeat H/H this afternoon: 9.4/30.4 - Iron panel: Iron 24, TIBC 198, % sat 12. Started on iron supplementation. - B12 and folate WNL Time Spent With Patient Time with patient: 25 - 35 minutes Subjective Date/time seen: 02/20/25 06:49 Interval history: 74-year-old male with history of Crohn's disease, colon cancer status post total colectomy and partial small-bowel resection with ileostomy, left nephrectomy due to poor functioning kidney and what sounds like matrix stones, chronic kidney disease (baseline creatinine is ?in the threes, followed by Dr. Dixon at [facility]), hypertension, and hyperlipidemia who presented to the hospital via private vehicle with complaints of fever. Patient is pleasant lying comfortably in bed. He has no complaints at this time denying chest pain, shortness a breath, palpitations, nausea/vomiting, abdominal pain. Review of Systems Review of Systems: All systems reviewed & are unremarkable except as noted in HPI and below Exam Narrative: AF HR 61 RR 16 SpO2 95 BP 150/66 General: male in no acute respiratory distress who is nontoxic appearing, lying semi recumbent in bed. HEENT: Normocephalic. Atraumatic. No facial asymmetry. Chest: Lungs are clear to auscultation bilaterally. No wheezes or crackles. CV: Heart was regular rate and rhythm. Abd: Abdomen was soft. Nontender. Nondistended. Positive bowel sounds. : slight hematuria in sams following procedure, improved from yesterday Ext: No clubbing, cyanosis, or edema. DP pulses bilaterally. Objective Data Vital Signs Vital Signs: Vital Signs - 24 hr 02/19/25 08:00 02/19/25 08:55 02/19/25 09:10 Temperature 97.7 F Pulse Rate 81 69 75 Respiratory Rate 23 H 18 Blood Pressure 84/46 L 110/57 L Pulse Oximetry 99 100 Oxygen Delivery Simple Face Mask Simple Face Mask Oxygen Flow Rate 8 8 02/19/25 09:25 02/19/25 09:40 02/19/25 09:55 Temperature Pulse Rate 72 68 68 Respiratory Rate 18 18 18 Blood Pressure 135/64 138/70 138/69 Pulse Oximetry 100 96 95 Oxygen Delivery Room Air Room Air Room Air Oxygen Flow Rate 02/19/25 10:10 02/19/25 10:55 02/19/25 10:56 Temperature 97.6 F Pulse Rate 67 70 Respiratory Rate 20 18 Blood Pressure 133/68 143/69 H Pulse Oximetry 95 99 Oxygen Delivery Room Air Room Air Oxygen Flow Rate 02/19/25 11:10 02/19/25 11:50 02/19/25 12:00 Temperature 97.6 F 97.9 F Pulse Rate 72 73 71 Respiratory Rate 18 18 Blood Pressure 150/74 H 162/67 H Pulse Oximetry 98 97 Oxygen Delivery Oxygen Flow Rate 02/19/25 16:00 02/19/25 20:00 02/19/25 20:32 Temperature 98.0 F Pulse Rate 68 64 66 Respiratory Rate 16 Blood Pressure 129/63 Pulse Oximetry 96 Oxygen Delivery Oxygen Flow Rate 02/19/25 21:00 02/20/25 00:00 02/20/25 00:29 Temperature 98.9 F Pulse Rate 65 70 Respiratory Rate 14 Blood Pressure 144/72 H Pulse Oximetry 94 Oxygen Delivery Room Air Oxygen Flow Rate 02/20/25 04:00 Temperature Pulse Rate 81 Respiratory Rate Blood Pressure Pulse Oximetry Oxygen Delivery Oxygen Flow Rate Intake/Output Intake/Output: Intake & Output 02/17/25 02/18/25 02/19/25 02/20/25 23:59 23:59 23:59 23:59 Intake Total 2150.0 3660 1530 1000 Output Total 2500 2552 50 Balance 2150.0 1160 -1022 950 Meds/Results Medications: Active Medications Generic Name Dose Route Start Last Admin Trade Name Freq PRN Reason Stop Dose Admin Acetaminophen 650 mg 02/18/25 05:26 02/20/25 04:14 Acetaminophen 325 Mg Tablet PO 650 mg Q6H PRN Administration Mild Pain (1-3) or Fever Amlodipine Besylate 10 mg 02/20/25 09:00 Amlodipine Besylate 10 Mg Tablet PO DAILY KIRSTEN Fentanyl Citrate 25 mcg 02/19/25 08:06 Fentanyl Citrate Inj (*Crx) 100 Mcg/2 Ml Vial IV PUSH Q2M PRN Pain Heparin Sodium (Porcine) 5,000 units 02/18/25 09:00 02/19/25 21:31 Heparin Sodium 5,000 Units/Ml Vial SUB-Q 5,000 units Q12HR KIRSTEN Administration Meropenem 500 mg in 100 mls @ 200 mls/hr 02/18/25 09:00 02/19/25 22:00 IVPB Infused Q12H KIRSTEN Infusion Sodium Chloride 1,000 mls @ 75 mls/hr 02/19/25 11:45 02/20/25 02:02 Normal Saline Iv IV CONT 75 mls/hr .[id number] KIRSTEN Administration Magnesium Chloride 64 mg 02/20/25 09:00 Magnesium Chloride 64 Mg Tablet PO DAILY KIRSTEN Ondansetron HCl 4 mg 02/17/25 22:27 Ondansetron Inj 4 Mg/2 Ml Vial IV PUSH Q4H PRN Nausea Ondansetron HCl 4 mg 02/19/25 08:06 Ondansetron Inj 4 Mg/2 Ml Vial IV PUSH ONCE PRN Nausea Ropinirole HCl 3 mg 02/18/25 21:00 02/19/25 21:32 Ropinirole Hcl 1 Mg Tablet PO 3 mg HS KIRSTEN Administration Radiology Results: ITS Impressions Chest X-Ray 02/17/25 16:46 IMPRESSION: 1: NO ACUTE CARDIOPULMONARY DISEASE. Chest/Abdomen/Pelvis CT 02/17/25 20:23 IMPRESSION: Significant right-sided hydroureteronephrosis without an obstructing stone visualized. Renal Ultrasound 02/18/25 08:52 Impression: 1: Enlarged right kidney with moderate hydronephrosis. Possible 11 mm cyst. Abdomen/Pelvis CT 02/19/25 06:47 IMPRESSION: Redemonstration of significant right-sided hydroureteronephrosis with induration at the level of the bladder in the presacral space with extension anteriorly, possibly the source of patient's obstruction. Remainder of the examination is grossly unchanged from previous study performed 36 and 24 hours earlier. Labs Labs: Laboratory Results - last 24 hr 02/19/25 02/19/25 02/20/25 05:18 09:21 04:45 WBC 16.9 H 10.6 H RBC 3.05 L 2.61 L Hgb 9.1 L 7.8 L Hct 29.2 L 25.0 L MCV 95.7 95.8 MCH 29.8 29.9 MCHC 31.2 L 31.2 L RDW 14.6 H 14.4 Plt Count 161 143 L MPV 10.7 H 10.7 H Immature Gran % (Auto) 0.9 H 0.6 H Neut % (Auto) 91.3 H 85.5 H Lymph % (Auto) 3.2 L 7.1 L Liberty % (Auto) 4.1 5.3 Eos % (Auto) 0.4 1.2 Baso % (Auto) 0.1 L 0.3 Lymph # (Auto) 0.54 L 0.75 L Liberty # (Auto) 0.7 H 0.6 Eos # (Auto) 0.1 0.1 Baso # (Auto) 0.0 0.0 Abs Immat Gran (auto) 0.15 H 0.06 H Absolute Neuts (auto) 15.4 H 9.1 H Absolute Nucleated RBC 0.000 0.000 Nucleated RBC % 0.0 0.0 Sodium 133 L Potassium 4.8 Chloride 105 Carbon Dioxide 18 L Anion Gap 10 BUN 58 H Creatinine 3.81 H Estim Creat Clear Calc 16 Estimated GFR 16 L Glucose 83 POC Capillary Glucose 105 Calcium 8.3 L Phosphorus 4.8 H Total Bilirubin 0.7 AST 26 ALT 43 Alkaline Phosphatase 93 Total Protein 6.0 L Albumin 2.8 L Quality VTE Prophylaxis VTE prophylaxis: mechanical ordered and pharmacologic ordered
[2025-02-20 07:20] LABS: Iron 24 ug/dL (49-181)
[2025-02-20 07:29] LABS: Percent Iron Saturation 12 % (20-50)
[2025-02-20 08:26] LABS: Folic Acid 6.9 ng/mL (2.76->20)
--- NOTE | 2025-02-20 09:15 | WPDANESPN ---
Anes - Prog Note Post-Op Date/Time: 02/20/25 09:15 Cardiovascular status: normal Respiratory status: normal Airway patency: baseline Mental status: baseline Post-Op hydration status: normal Vital Signs: Last Vital Signs Temp 37.1 C 02/20/25 06:51 Pulse 61 02/20/25 06:51 Resp 16 02/20/25 06:51 BP 150/66 H 02/20/25 06:51 Pulse Ox 95 02/20/25 06:51 O2 Del Method Room Air 02/19/25 21:00 O2 Flow Rate 8 02/19/25 09:10 Pain Score (VAS): 0 I/O: Intake & Output 02/19/25 02/20/25 02/20/25 23:59 07:59 15:59 Intake Total 340 1200 240 Output Total 752 450 Balance -412 750 240 Laboratory Tests 02/20/25 04:45 02/20/25 04:45 02/19/25 02/20/25 02/20/25 09:21 04:41 04:45 WBC 10.6 H RBC 2.61 L Hgb 7.8 L Hct 25.0 L MCV 95.8 MCH 29.9 MCHC 31.2 L RDW 14.4 Plt Count 143 L MPV 10.7 H Immature Gran % (Auto) 0.6 H Neut % (Auto) 85.5 H Lymph % (Auto) 7.1 L Patrick % (Auto) 5.3 Eos % (Auto) 1.2 Baso % (Auto) 0.3 Lymph # (Auto) 0.75 L Patrick # (Auto) 0.6 Eos # (Auto) 0.1 Baso # (Auto) 0.0 Abs Immat Gran (auto) 0.06 H Absolute Neuts (auto) 9.1 H Absolute Nucleated RBC 0.000 Nucleated RBC % 0.0 Sodium 133 L Potassium 4.8 Chloride 105 Carbon Dioxide 18 L Anion Gap 10 BUN 58 H Creatinine 3.81 H Estim Creat Clear Calc 16 Estimated GFR 16 L Glucose 83 POC Capillary Glucose 105 Calcium 8.3 L Phosphorus 4.8 H Iron 24 L TIBC 198 L % Saturation 12 L Total Bilirubin 0.7 AST 26 ALT 43 Alkaline Phosphatase 93 Total Protein 6.0 L Albumin 2.8 L Vitamin B12 739.0 Folate 6.9 Microbiology 02/17/25 22:06 Blood Blood Culture - Final Escherichia Coli 02/17/25 22:06 Blood Blood Culture - Preliminary Escherichia Coli 02/17/25 19:07 Urine Clean Catch Urine Culture - Final Escherichia Coli Post-procedural complaints: none Patient Feedback: Patient satisfied with anesthetic care.
[2025-02-20] MEDS: amLODIPine BESYLATE 10 MG TABLET PO (10:20)
[2025-02-20] MEDS: MAGNESIUM CHLORIDE 64 MG TABLET PO (10:20)
--- NOTE | 2025-02-20 11:17 | PM.PNNEP ---
Subjective Date/time seen: 02/20/25 11:17 Interval history: Follow-up for acute kidney injury/acute renal failure on chronic kidney disease. Chart reviewed -- assuming care from Dr. Alfonso; s/p cystoscopy and right ureteral stent insertion by Urology yesterday and tolerated the procedure reasonably well; renal function/creatinine a bit better following surgical intervention; making urine at this time; no apparent distress voiced at the time of my visit. Objective Data Vital Signs Vital Signs: Vital Signs Temp Pulse Resp BP Pulse Ox O2 Del Method 02/20/25 11:00 98.1 F 65 17 137/61 99 02/20/25 08:20 Room Air 02/20/25 06:51 98.8 F 61 16 150/66 H 95 02/20/25 04:00 81 02/20/25 00:29 98.9 F 70 14 144/72 H 94 02/20/25 00:00 65 02/19/25 21:00 Room Air 02/19/25 20:32 98.0 F 66 16 129/63 96 02/19/25 20:00 64 Intake/Output Intake/Output: Intake & Output 02/17/25 02/18/25 02/19/25 02/20/25 23:59 23:59 23:59 23:59 Intake Total 2150.0 3660 1530 1560 Output Total 2500 2552 450 Balance 2150.0 1160 -1022 1110 Meds/Results Medications: Active Medications Generic Name Dose Route Start Last Admin Trade Name Freq PRN Reason Stop Dose Admin Acetaminophen 650 mg 02/18/25 05:26 02/20/25 04:14 Acetaminophen 325 Mg Tablet PO 650 mg Q6H PRN Administration Mild Pain (1-3) or Fever Amlodipine Besylate 10 mg 02/20/25 09:00 02/20/25 10:20 Amlodipine Besylate 10 Mg Tablet PO 10 mg DAILY KIRSTEN Administration Amoxicillin/Clavulanate Potassium 1 tablet 02/20/25 14:00 02/20/25 14:04 Amoxicillin/Clavulanate K 500-125 Mg Tab PO 02/27/25 22:01 1 tablet Q8HR KIRSTEN Administration Fentanyl Citrate 25 mcg 02/19/25 08:06 Fentanyl Citrate Inj (*Crx) 100 Mcg/2 Ml Vial IV PUSH Q2M PRN Pain Ferrous Sulfate 325 mg 02/20/25 17:00 02/20/25 16:55 Ferrous Sulfate [address] PO 325 mg BID KIRSTEN Administration Heparin Sodium (Porcine) 5,000 units 02/18/25 09:00 02/20/25 10:20 Heparin Sodium 5,000 Units/Ml Vial SUB-Q Not Given Q12HR KIRSTEN Magnesium Chloride 64 mg 02/20/25 09:00 02/20/25 10:20 Magnesium Chloride 64 Mg Tablet PO 64 mg DAILY KIRSTEN Administration Ondansetron HCl 4 mg 02/17/25 22:27 Ondansetron Inj 4 Mg/2 Ml Vial IV PUSH Q4H PRN Nausea Ondansetron HCl 4 mg 02/19/25 08:06 Ondansetron Inj 4 Mg/2 Ml Vial IV PUSH ONCE PRN Nausea Ropinirole HCl 3 mg 02/18/25 21:00 02/19/25 21:32 Ropinirole Hcl 1 Mg Tablet PO 3 mg HS KIRSTEN Administration Radiology Results: ITS Impressions Chest X-Ray 02/17/25 16:46 IMPRESSION: 1: NO ACUTE CARDIOPULMONARY DISEASE. Chest/Abdomen/Pelvis CT 02/17/25 20:23 IMPRESSION: Significant right-sided hydroureteronephrosis without an obstructing stone visualized. Renal Ultrasound 02/18/25 08:52 Impression: 1: Enlarged right kidney with moderate hydronephrosis. Possible 11 mm cyst. Abdomen/Pelvis CT 02/19/25 06:47 IMPRESSION: Redemonstration of significant right-sided hydroureteronephrosis with induration at the level of the bladder in the presacral space with extension anteriorly, possibly the source of patient's obstruction. Remainder of the examination is grossly unchanged from previous study performed 36 and 24 hours earlier. Labs Labs: Laboratory Tests 02/20/25 04:45 WBC 10.6 H Hgb 7.8 L Hct 25.0 L Plt Count 143 L Calcium 8.3 L Phosphorus 4.8 H Iron 24 L TIBC 198 L % Saturation 12 L Total Bilirubin 0.7 AST 26 ALT 43 Alkaline Phosphatase 93 Total Protein 6.0 L Albumin 2.8 L Vitamin B12 739.0 Folate 6.9 Microbiology 02/17/25 22:06 Blood Blood Culture - Final Escherichia Coli 02/17/25 22:06 Blood Blood Culture - Final Escherichia Coli
[2025-02-20 12:18] LABS: Hematocrit 30.4 % (42.0-52.0); Hemoglobin 9.4 g/dL (14.0-18.0)
[2025-02-20] MEDS: AMOXICILLIN/CLAVULANATE K 500-125 MG TAB 1 TABLET PO ×2 (14:04→21:18)
--- NOTE | 2025-02-20 14:24 | P.PNUR_ITS ---
Progress Note: A&P Assessment and Plan (1) History of left nephrectomy: Code(s): Z90.5 - Acquired absence of kidney Status: Acute (2) Hydroureteronephrosis: Code(s): N13.30 - Unspecified hydronephrosis Status: Acute (3) Acute on chronic kidney failure: Code(s): N17.9 - Acute kidney failure, unspecified; N18.9 - Chronic kidney disease, unspecified Status: Acute Assessment and Plan: - Hx underlying HTN, vasculuar disease, CKD, left nephrectomy (2011) (4) UTI (urinary tract infection): Code(s): N39.0 - Urinary tract infection, site not specified Status: Acute Assessment and Plan: - Present on admission Plan Pleasant 74yoM with solitary right kidney POD1 right ureteral stent placement for persistent moderate hydronephrosis, acute renal failure despite indwelling Uriarte placement. On abx for E.Coli bacteremia/UTI. Indwelling Uriarte draining light red, no clots, no pain. Renal function better today, Cr 3.8. - Maintain indwelling Uriarte to maximize drainage. Hopefully renal function will continue to improve with stent/Uriarte/antibiotics. - [facility] to further assess need for stent removal vs. exchange. Patient agreeable to plan. Subjective Subjective Date/Time Seen: 02/20/25 14:24 Interval history: NAEO. Patient comfortable, denies issue with Uriarte. Feeling much better today. POD1 Right ureteral stent placement Exam Narrative: Comfortable, no distress Uriarte draining light red, no clots, no suprapubic tenderness Objective Data Vital Signs Vital Signs: Vital Signs - 24 hr 02/19/25 16:00 02/19/25 20:00 02/19/25 20:32 Temperature 98.0 F Pulse Rate 68 64 66 Respiratory Rate 16 Blood Pressure 129/63 Pulse Oximetry 96 Oxygen Delivery 02/19/25 21:00 02/20/25 00:00 02/20/25 00:29 Temperature 98.9 F Pulse Rate 65 70 Respiratory Rate 14 Blood Pressure 144/72 H Pulse Oximetry 94 Oxygen Delivery Room Air 02/20/25 04:00 02/20/25 06:51 02/20/25 08:20 Temperature 98.8 F Pulse Rate 81 61 Respiratory Rate 16 Blood Pressure 150/66 H Pulse Oximetry 95 Oxygen Delivery Room Air Intake/Output Intake/Output: Intake & Output 02/17/25 02/18/25 02/19/25 02/20/25 23:59 23:59 23:59 23:59 Intake Total 2150.0 3660 1530 1560 Output Total 2500 2552 450 Balance 2150.0 1160 -1022 1110 Meds/Results Medications: Active Medications Generic Name Dose Route Start Last Admin Trade Name Freq PRN Reason Stop Dose Admin Acetaminophen 650 mg 02/18/25 05:26 02/20/25 04:14 Acetaminophen 325 Mg Tablet PO 650 mg Q6H PRN Administration Mild Pain (1-3) or Fever Amlodipine Besylate 10 mg 02/20/25 09:00 02/20/25 10:20 Amlodipine Besylate 10 Mg Tablet PO 10 mg DAILY KIRSTEN Administration Amoxicillin/Clavulanate Potassium 1 tablet 02/20/25 14:00 02/20/25 14:04 Amoxicillin/Clavulanate K 500-125 Mg Tab PO 02/27/25 22:01 1 tablet Q8HR KIRSTEN Administration Fentanyl Citrate 25 mcg 02/19/25 08:06 Fentanyl Citrate Inj (*Crx) 100 Mcg/2 Ml Vial IV PUSH Q2M PRN Pain Ferrous Sulfate 325 mg 02/20/25 17:00 Ferrous Sulfate [address] PO BID COUNT INCLUDES THE [facility] Heparin Sodium (Porcine) 5,000 units 02/18/25 09:00 02/20/25 10:20 Heparin Sodium 5,000 Units/Ml Vial SUB-Q Not Given Q12HR COUNT INCLUDES THE [facility] Magnesium Chloride 64 mg 02/20/25 09:00 02/20/25 10:20 Magnesium Chloride 64 Mg Tablet PO 64 mg DAILY KIRSTEN Administration Ondansetron HCl 4 mg 02/17/25 22:27 Ondansetron Inj 4 Mg/2 Ml Vial IV PUSH Q4H PRN Nausea Ondansetron HCl 4 mg 02/19/25 08:06 Ondansetron Inj 4 Mg/2 Ml Vial IV PUSH ONCE PRN Nausea Ropinirole HCl 3 mg 02/18/25 21:00 02/19/25 21:32 Ropinirole Hcl 1 Mg Tablet PO 3 mg HS KIRSTEN Administration Radiology Results: ITS Impressions Chest X-Ray 02/17/25 16:46 IMPRESSION: 1: NO ACUTE CARDIOPULMONARY DISEASE. Chest/Abdomen/Pelvis CT 02/17/25 20:23 IMPRESSION: Significant right-sided hydroureteronephrosis without an obstructing stone visualized. Renal Ultrasound 02/18/25 08:52 Impression: 1: Enlarged right kidney with moderate hydronephrosis. Possible 11 mm cyst. Abdomen/Pelvis CT 02/19/25 06:47 IMPRESSION: Redemonstration of significant right-sided hydroureteronephrosis with induration at the level of the bladder in the presacral space with extension anteriorly, possibly the source of patient's obstruction. Remainder of the examination is grossly unchanged from previous study performed 36 and 24 hours earlier. Labs Labs: Laboratory Results - last 24 hr 02/20/25 02/20/25 02/20/25 04:41 04:45 12:09 WBC 10.6 H RBC 2.61 L Hgb 7.8 L 9.4 L Hct 25.0 L 30.4 L MCV 95.8 MCH 29.9 MCHC 31.2 L RDW 14.4 Plt Count 143 L MPV 10.7 H Immature Gran % (Auto) 0.6 H Neut % (Auto) 85.5 H Lymph % (Auto) 7.1 L Brooks % (Auto) 5.3 Eos % (Auto) 1.2 Baso % (Auto) 0.3 Lymph # (Auto) 0.75 L Brooks # (Auto) 0.6 Eos # (Auto) 0.1 Baso # (Auto) 0.0 Abs Immat Gran (auto) 0.06 H Absolute Neuts (auto) 9.1 H Absolute Nucleated RBC 0.000 Nucleated RBC % 0.0 Sodium 133 L Potassium 4.8 Chloride 105 Carbon Dioxide 18 L Anion Gap 10 BUN 58 H Creatinine 3.81 H Estim Creat Clear Calc 16 Estimated GFR 16 L Glucose 83 Calcium 8.3 L Phosphorus 4.8 H Iron 24 L TIBC 198 L % Saturation 12 L Total Bilirubin 0.7 AST 26 ALT 43 Alkaline Phosphatase 93 Total Protein 6.0 L Albumin 2.8 L Vitamin B12 739.0 Folate 6.9
[2025-02-20 14:53] LABS: Complement Total CH50 >60 U/mL (31-60)
[2025-02-20] MEDS: FERROUS SULFATE 325 MG TABLET DR PO (16:55)
[2025-02-20] MEDS: HEPARIN SODIUM 5,000 UNITS/ML VIAL 5000 UNITS SUB-Q (20:02)
[2025-02-20] MEDS: rOPINIRole HCL 1 MG TABLET 3 MG PO (20:03)
[2025-02-21] VITALS (8 sets, daily range): BP systolic 138–155; BP diastolic 68–76; PULSE 53–69; RESP 17–18; TEMP 36.5–36.7; O2SAT 97–98
[2025-02-21] MEDS: AMOXICILLIN/CLAVULANATE K 500-125 MG TAB 1 TABLET PO ×3 (05:03→21:54)
[2025-02-21 05:30] LABS: Basophils Percent Auto 0.3 % (0.2-1.2); Eosinophils Absolute Auto 0.1 K/mm3 (0-0.3); Eosinophils Percent Auto 1.3 % (0-4.4); Hematocrit 27.4 % (42.0-52.0); Hemoglobin 8.7 g/dL (14.0-18.0); Immature Granulocyte Absolute 0.04 K/mm3 (0.00-0.031); Immature Granulocyte Percent A 0.6 % (0-0.5); Lymphocytes Absolute Auto 0.67 K/mm3 (0.9-3.2); Lymphocytes Percent Auto 9.6 % (18.3-44.2); Mean Corpuscular HGB Conc 31.8 g/dl (32-36); Mean Corpuscular Hemoglobin 29.9 pg (26-34); Mean Corpuscular Volume 94.2 fl (80-100); Mean Platelet Volume 10.7 fl (7.4-10.4); Monocytes Absolute Auto 0.5 K/mm3 (0.1-0.6); Monocytes Percent Auto 7.2 % (2.6-8.5); Neutrophils Absolute Auto 5.7 K/mm3 (1.3-6.7); Platelet Count Result 171 k/mm3 (150-375); Red Blood Count 2.91 M/mm3 (4.6-6.20); Red Cell Distribution Width 13.8 % (11.5-14.5)
[2025-02-21 05:41] LABS: Alanine Aminotransferase 63 U/L (6-50); Albumin Level 3.1 g/dL (3.5-5.1); Alkaline Phosphatase 91 U/L (38-126); Anion Gap 9 mmol/L (4-12); Aspartate Amino Transferase 42 U/L (17-59); Bilirubin,Total 0.8 mg/dL (0.2-1.3); Blood Urea Nitrogen 56 mg/dL (9-20); Calcium 8.7 mg/dL (8.4-10.2); Carbon Dioxide 20 mmol/L (22-30); Chloride 105 mmol/L (98-107); Estimated CRCL calculation 18 ml/min; Estimated Glomerular Filt Rate 18; Glucose 98 mg/dL (65-110); Potassium 4.8 mmol/L (3.4-5.0); Sodium 134 mmol/L (137-145)
[2025-02-21] MEDS: amLODIPine BESYLATE 10 MG TABLET PO (08:40)
[2025-02-21] MEDS: FERROUS SULFATE 325 MG TABLET DR PO ×2 (08:40→17:15)
[2025-02-21] MEDS: HEPARIN SODIUM 5,000 UNITS/ML VIAL 5000 UNITS SUB-Q ×2 (08:40→21:55)
[2025-02-21] MEDS: MAGNESIUM CHLORIDE 64 MG TABLET PO (08:40)
--- NOTE | 2025-02-21 08:40 | WPDUROPN2 ---
Progress Note: A&P Assessment and Plan (1) History of left nephrectomy: Code(s): Z90.5 - Acquired absence of kidney Status: Acute (2) Hydroureteronephrosis: Code(s): N13.30 - Unspecified hydronephrosis Status: Acute (3) Acute on chronic kidney failure: Code(s): N17.9 - Acute kidney failure, unspecified; N18.9 - Chronic kidney disease, unspecified Status: Acute Assessment and Plan: - Hx underlying HTN, vasculuar disease, CKD, left nephrectomy (2011) (4) UTI (urinary tract infection): Code(s): N39.0 - Urinary tract infection, site not specified Status: Acute Assessment and Plan: - Present on admission Plan Pleasant 74yoM with solitary right kidney POD2 right ureteral stent placement for persistent moderate hydronephrosis, acute renal failure despite indwelling Uriarte placement. On abx for E.Coli bacteremia/UTI. Indwelling Uriarte draining clear.. Renal function better today, Cr 3.3 from 3.8. - Maintain indwelling Uriarte to maximize drainage. Hopefully renal function will continue to improve with stent/Uriarte/antibiotics. Encourage oral fluid intake with plain water. - Plan to [facility] to further assess need for stent removal vs. exchange. Patient agreeable to plan. - Urology to follow peripherally. Please call with questions. Subjective Subjective Date/Time Seen: 02/21/25 08:40 Interval history: NAEO; Comfortable on exam Uriarte draining clear Renal function continues to improve Afebrile Exam Narrative: Comfortable, no distress Uriarte draining clear, no clots, no suprapubic tenderness Objective Data Vital Signs Vital Signs: Vital Signs - 24 hr 02/20/25 12:00 02/20/25 14:00 02/20/25 16:00 Temperature 98.1 F Pulse Rate 78 65 57 L Respiratory Rate 17 Blood Pressure 137/61 Pulse Oximetry 99 Oxygen Delivery 02/20/25 19:48 02/20/25 20:00 02/20/25 20:00 Temperature 97.8 F Pulse Rate 68 64 Respiratory Rate 16 Blood Pressure 142/67 H Pulse Oximetry 97 Oxygen Delivery Room Air 02/21/25 00:00 02/21/25 04:00 Temperature Pulse Rate 69 66 Respiratory Rate Blood Pressure Pulse Oximetry Oxygen Delivery Intake/Output Intake/Output: Intake & Output 02/18/25 02/19/25 02/20/25 02/21/25 23:59 23:59 23:59 23:59 Intake Total 3660 1530 1782 1500 Output Total 2500 2552 2750 2250 Balance 1160 -1022 -968 -750 Meds/Results Medications: Active Medications Generic Name Dose Route Start Last Admin Trade Name Freq PRN Reason Stop Dose Admin Acetaminophen 650 mg 02/18/25 05:26 02/20/25 04:14 Acetaminophen 325 Mg Tablet PO 650 mg Q6H PRN Administration Mild Pain (1-3) or Fever Amlodipine Besylate 10 mg 02/20/25 09:00 02/20/25 10:20 Amlodipine Besylate 10 Mg Tablet PO 10 mg DAILY KIRSTEN Administration Amoxicillin/Clavulanate Potassium 1 tablet 02/20/25 14:00 02/21/25 05:03 Amoxicillin/Clavulanate K 500-125 Mg Tab PO 02/27/25 22:01 1 tablet Q8HR KIRSTEN Administration Fentanyl Citrate 25 mcg 02/19/25 08:06 Fentanyl Citrate Inj (*Crx) 100 Mcg/2 Ml Vial IV PUSH Q2M PRN Pain Ferrous Sulfate 325 mg 02/20/25 17:00 02/20/25 16:55 Ferrous Sulfate [address] PO 325 mg BID KIRSTEN Administration Heparin Sodium (Porcine) 5,000 units 02/18/25 09:00 02/20/25 20:02 Heparin Sodium 5,000 Units/Ml Vial SUB-Q 5,000 units Q12HR KIRSTEN Administration Magnesium Chloride 64 mg 02/20/25 09:00 02/20/25 10:20 Magnesium Chloride 64 Mg Tablet PO 64 mg DAILY KIRSTEN Administration Ondansetron HCl 4 mg 02/17/25 22:27 Ondansetron Inj 4 Mg/2 Ml Vial IV PUSH Q4H PRN Nausea Ondansetron HCl 4 mg 02/19/25 08:06 Ondansetron Inj 4 Mg/2 Ml Vial IV PUSH ONCE PRN Nausea Ropinirole HCl 3 mg 02/18/25 21:00 02/20/25 20:03 Ropinirole Hcl 1 Mg Tablet PO 3 mg HS KIRSTEN Administration Radiology Results: ITS Impressions Chest X-Ray 02/17/25 16:46 IMPRESSION: 1: NO ACUTE CARDIOPULMONARY DISEASE. Chest/Abdomen/Pelvis CT 02/17/25 20:23 IMPRESSION: Significant right-sided hydroureteronephrosis without an obstructing stone visualized. Renal Ultrasound 02/18/25 08:52 Impression: 1: Enlarged right kidney with moderate hydronephrosis. Possible 11 mm cyst. Abdomen/Pelvis CT 02/19/25 06:47 IMPRESSION: Redemonstration of significant right-sided hydroureteronephrosis with induration at the level of the bladder in the presacral space with extension anteriorly, possibly the source of patient's obstruction. Remainder of the examination is grossly unchanged from previous study performed 36 and 24 hours earlier. Labs Labs: Laboratory Results - last 24 hr 02/18/25 02/20/25 02/21/25 05:32 12:09 04:53 WBC 7.0 RBC 2.91 L Hgb 9.4 L 8.7 L Hct 30.4 L 27.4 L MCV 94.2 MCH 29.9 MCHC 31.8 L RDW 13.8 Plt Count 171 MPV 10.7 H Immature Gran % (Auto) 0.6 H Neut % (Auto) 81.0 H Lymph % (Auto) 9.6 L [place] % (Auto) 7.2 Eos % (Auto) 1.3 Baso % (Auto) 0.3 Lymph # (Auto) 0.67 L [place] # (Auto) 0.5 Eos # (Auto) 0.1 Baso # (Auto) 0.0 Abs Immat Gran (auto) 0.04 H Absolute Neuts (auto) 5.7 Absolute Nucleated RBC 0.000 Nucleated RBC % 0.0 Sodium 134 L Potassium 4.8 Chloride 105 Carbon Dioxide 20 L Anion Gap 9 BUN 56 H Creatinine 3.32 H Estim Creat Clear Calc 18 Estimated GFR 18 L Glucose 98 Calcium 8.7 Total Bilirubin 0.8 AST 42 ALT 63 H Alkaline Phosphatase 91 Total Protein 7.0 Albumin 3.1 L Tot Complement (CH50) >60 H
--- NOTE | 2025-02-21 08:41 | PM.IMPN ---
Progress Note: A&P Assessment and Plan (1) Sepsis: Code(s): A41.9 - Sepsis, unspecified organism Status: Acute Assessment and Plan: Meets SIRS criteria: hypotension, leukocytosis, meri - lactic acid: 1.5 - Received sepsis bolus in the ED - started on meropenem on 02/17, discussed with [facility] pharmacy and transitioned to Augmentin on 02/20. Course to be completed on 02/27 - suspected source: UTI - blood cultures drawn on 02/17: ecoli - UA: cloudy appearance with 3+ protein, 2+ blood, 2+ leukocytes, 6-10 RBC, > 100 WBC, 4+ bacteria - Urine culture: ecoli - CXR unremarkable - Chest/abdomen/pelvis CT: Significant right-sided hydroureteronephrosis without an obstructing stone visualized. Vitals stable, hypotension and fever resolved. WBC WNL. See plan below. Resolved. (2) Urinary tract infection: Code(s): N39.0 - Urinary tract infection, site not specified Status: Acute Assessment and Plan: Previously treated bactrim on 02/06 for concern of UTI. - UA: cloudy appearance with 3+ protein, 2+ blood, 2+ leukocytes, 6-10 RBC, > 100 WBC, 4+ bacteria - Urine culture: ecoli - previous micro reviewed 11/28/19: Klebsiella pneumoniae panresistant except to meropenem - started on meropenem on 02/17, discussed with [facility] pharmacy and transitioned to Augmentin on 02/20. Course to be completed on 02/27 (3) Acute on chronic kidney failure: Code(s): N17.9 - Acute kidney failure, unspecified; N18.9 - Chronic kidney disease, unspecified Status: Acute Assessment and Plan: Etiology of his worsening renal function is not entirely clear however this is likely due to a combination of factors including sepsis from urinary tract infection, dehydration from poor appetite and insensible losses from fevers, and hypoperfusion from relative hypotension. - BUN/Cr 62/4.32 on GFR 13 on admission, now 56/3.32 on am labs - CK WNL - Renal US: Enlarged right kidney with moderate hydronephrosis. Possible 11 mm cyst. - Avoid nephrotoxic medications - Renally dose medications - NS discontinued, patient having good oral intake. - Monitor I/O. Current UOP WNL. - Nephrology consulted (4) Hydroureteronephrosis: Code(s): N13.30 - Unspecified hydronephrosis Status: Acute Assessment and Plan: - Chest/abdomen/pelvis CT: Significant right-sided hydroureteronephrosis without an obstructing stone visualized. - Urology consulted Repeat CT showed redemonstration of significant right-sided hydroureteronephrosis with induration at the level of the bladder in the presacral space with extension anteriorly, possibly the source of patient's obstruction. S/p Cystoscopy, right retrograde pyelogram, right ureteral stent insertion on 02/[address] Brown Maintain indwelling Sams to maximize drainage. Plan to follow-up with his established urologist at [facility] on discharge to further assess need for stent removal vs. exchange. (5) Electrolyte abnormality: Code(s): E87.8 - Other disorders of electrolyte and fluid balance, not elsewhere classified Status: Acute Assessment and Plan: K 6.5 on admission. Hyperkalemia is related to acidosis from worsening renal function and likely the Bactrim. Given albuterol, lokelma 10 mg, and insulin 5 units x2. K improved to 5.4. Given another dose of lokelma. K 6.7 on 02/18 am labs. Given albuterol and another lokelma. K improved to 5.3. K returned to normal on am labs at 4.8. Magnesium was low as well at 1.0 on admission. Supplemented. Continue to monitor. Resolved. (6) Metabolic acidosis: Code(s): E87.20 - Acidosis, unspecified Status: Acute Assessment and Plan: Bicarb 10 on admission. VBG: pH 7.3, pCO2 31.9, pO2 50.4, and HCO3 15.3. Given 50 Meq Bicarb x2. Bicarb 15 on 02/19 am labs. Given 50 Meq bicarb x1. Bicarb 20 on am labs. (7) Hypertension: Code(s): I10 - Essential (primary) hypertension Status: Acute Assessment and Plan: Chronic Hypotensive on arrival, responded well to fluids. Resume amlodipine 10 mg daily and continue holding irbesartan 75 mg daily for ongoing MERI and hyperkalemia, resume when appropriate Blood pressures reviewed and currently stable. (8) Anemia: Code(s): D64.9 - Anemia, unspecified Status: Acute Assessment and Plan: Hgb 11.4 on admission, now 7.8 on am labs. Possibly dilutional as patient has been receiving IV fluids for ongoing MERI since admission however recent procedure and hematuria noted in sams catheter. Repeat H/H this afternoon: 9.4/30.4 - H/H remains stable, continue to monitor - No signs of active bleeding - Iron panel: Iron 24, TIBC 198, % sat 12. Started on iron supplementation. - B12 and folate WNL Time Spent With Patient Time with patient: 25 - 35 minutes Subjective Date/time seen: 02/21/25 08:41 Interval history: 74-year-old male with history of Crohn's disease, colon cancer status post total colectomy and partial small-bowel resection with ileostomy, left nephrectomy due to poor functioning kidney and what sounds like matrix stones, chronic kidney disease (baseline creatinine is ?in the threes, followed by Dr. Dixon at [facility]), hypertension, and hyperlipidemia who presented to the hospital via private vehicle with complaints of fever. Patient pleasant sitting on the side of bed eating lunch with at bedside. He has no complaints denying chest pain, palpitations, shortness of breath, nausea/vomiting and abdominal pain. Review of Systems Review of Systems: All systems reviewed & are unremarkable except as noted in HPI and below Exam Narrative: AF HR 68 RR 17 Spo2 98 BP 138/68 General: male in no acute respiratory distress who is nontoxic appearing, sitting on the side of bed HEENT: Normocephalic. Atraumatic. No facial asymmetry. Chest: Lungs are clear to auscultation bilaterally. No wheezes or crackles. CV: Heart was regular rate and rhythm. Abd: Abdomen was soft. Nontender. Nondistended. Positive bowel sounds. : No hematuria, sams in place Ext: No clubbing, cyanosis, or edema. DP pulses bilaterally. Objective Data Vital Signs Vital Signs: Vital Signs - 24 hr 02/20/25 12:00 02/20/25 14:00 02/20/25 16:00 Temperature 98.1 F Pulse Rate 78 65 57 L Respiratory Rate 17 Blood Pressure 137/61 Pulse Oximetry 99 Oxygen Delivery 02/20/25 19:48 02/20/25 20:00 02/20/25 20:00 Temperature 97.8 F Pulse Rate 68 64 Respiratory Rate 16 Blood Pressure 142/67 H Pulse Oximetry 97 Oxygen Delivery Room Air 02/21/25 00:00 02/21/25 04:00 Temperature Pulse Rate 69 66 Respiratory Rate Blood Pressure Pulse Oximetry Oxygen Delivery Intake/Output Intake/Output: Intake & Output 02/18/25 02/19/25 02/20/25 02/21/25 23:59 23:59 23:59 23:59 Intake Total 3660 1530 1782 1500 Output Total 2500 2552 2750 2250 Balance 1160 -1022 -968 -750 Meds/Results Medications: Active Medications Generic Name Dose Route Start Last Admin Trade Name Freq PRN Reason Stop Dose Admin Acetaminophen 650 mg 02/18/25 05:26 02/20/25 04:14 Acetaminophen 325 Mg Tablet PO 650 mg Q6H PRN Administration Mild Pain (1-3) or Fever Amlodipine Besylate 10 mg 02/20/25 09:00 02/20/25 10:20 Amlodipine Besylate 10 Mg Tablet PO 10 mg DAILY KIRSTEN Administration Amoxicillin/Clavulanate Potassium 1 tablet 02/20/25 14:00 02/21/25 05:03 Amoxicillin/Clavulanate K 500-125 Mg Tab PO 02/27/25 22:01 1 tablet Q8HR KIRSTEN Administration Fentanyl Citrate 25 mcg 02/19/25 08:06 Fentanyl Citrate Inj (*Crx) 100 Mcg/2 Ml Vial IV PUSH Q2M PRN Pain Ferrous Sulfate 325 mg 02/20/25 17:00 02/20/25 16:55 Ferrous Sulfate [address] PO 325 mg BID KIRSTEN Administration Heparin Sodium (Porcine) 5,000 units 02/18/25 09:00 02/20/25 20:02 Heparin Sodium 5,000 Units/Ml Vial SUB-Q 5,000 units Q12HR KIRSTEN Administration Magnesium Chloride 64 mg 02/20/25 09:00 02/20/25 10:20 Magnesium Chloride 64 Mg Tablet PO 64 mg DAILY KIRSTEN Administration Ondansetron HCl 4 mg 02/17/25 22:27 Ondansetron Inj 4 Mg/2 Ml Vial IV PUSH Q4H PRN Nausea Ondansetron HCl 4 mg 02/19/25 08:06 Ondansetron Inj 4 Mg/2 Ml Vial IV PUSH ONCE PRN Nausea Ropinirole HCl 3 mg 02/18/25 21:00 02/20/25 20:03 Ropinirole Hcl 1 Mg Tablet PO 3 mg HS KIRSTEN Administration Radiology Results: ITS Impressions Chest X-Ray 02/17/25 16:46 IMPRESSION: 1: NO ACUTE CARDIOPULMONARY DISEASE. Chest/Abdomen/Pelvis CT 02/17/25 20:23 IMPRESSION: Significant right-sided hydroureteronephrosis without an obstructing stone visualized. Renal Ultrasound 02/18/25 08:52 Impression: 1: Enlarged right kidney with moderate hydronephrosis. Possible 11 mm cyst. Abdomen/Pelvis CT 02/19/25 06:47 IMPRESSION: Redemonstration of significant right-sided hydroureteronephrosis with induration at the level of the bladder in the presacral space with extension anteriorly, possibly the source of patient's obstruction. Remainder of the examination is grossly unchanged from previous study performed 36 and 24 hours earlier. Labs Labs: Laboratory Results - last 24 hr 02/18/25 02/20/25 02/21/25 05:32 12:09 04:53 WBC 7.0 RBC 2.91 L Hgb 9.4 L 8.7 L Hct 30.4 L 27.4 L MCV 94.2 MCH 29.9 MCHC 31.8 L RDW 13.8 Plt Count 171 MPV 10.7 H Immature Gran % (Auto) 0.6 H Neut % (Auto) 81.0 H Lymph % (Auto) 9.6 L [place] % (Auto) 7.2 Eos % (Auto) 1.3 Baso % (Auto) 0.3 Lymph # (Auto) 0.67 L [place] # (Auto) 0.5 Eos # (Auto) 0.1 Baso # (Auto) 0.0 Abs Immat Gran (auto) 0.04 H Absolute Neuts (auto) 5.7 Absolute Nucleated RBC 0.000 Nucleated RBC % 0.0 Sodium 134 L Potassium 4.8 Chloride 105 Carbon Dioxide 20 L Anion Gap 9 BUN 56 H Creatinine 3.32 H Estim Creat Clear Calc 18 Estimated GFR 18 L Glucose 98 Calcium 8.7 Total Bilirubin 0.8 AST 42 ALT 63 H Alkaline Phosphatase 91 Total Protein 7.0 Albumin 3.1 L Tot Complement (CH50) >60 H Quality VTE Prophylaxis VTE prophylaxis: mechanical ordered and pharmacologic ordered
--- NOTE | 2025-02-21 11:18 | PM.PNNEP ---
Subjective Date/time seen: 02/21/25 11:18 Interval history: Follow-up for acute kidney injury/acute renal failure on chronic kidney disease. No apparent distress noted at the time of my visit; renal function/creatinine slowly improving by trend of labs in association with good urine output; no other acute complaints voiced; no other issues/events overnight or earlier this morning; no apparent distress noted. Objective Data Vital Signs Vital Signs: Vital Signs Temp Pulse Resp BP Pulse Ox O2 Del Method 02/21/25 08:40 Room Air 02/21/25 08:00 58 L 02/21/25 04:00 66 02/21/25 00:00 69 02/20/25 20:00 64 02/20/25 20:00 Room Air 02/20/25 19:48 97.8 F 68 16 142/67 H 97 Intake/Output Intake/Output: Intake & Output 02/18/25 02/19/25 02/20/25 02/21/25 23:59 23:59 23:59 23:59 Intake Total 3660 1530 1782 2460 Output Total 2500 2552 2750 3650 Balance 1160 -1022 -968 -1190 Meds/Results Medications: Active Medications Generic Name Dose Route Start Last Admin Trade Name Freq PRN Reason Stop Dose Admin Acetaminophen 650 mg 02/18/25 05:26 02/20/25 04:14 Acetaminophen 325 Mg Tablet PO 650 mg Q6H PRN Administration Mild Pain (1-3) or Fever Amlodipine Besylate 10 mg 02/20/25 09:00 02/21/25 08:40 Amlodipine Besylate 10 Mg Tablet PO 10 mg DAILY KIRSTEN Administration Amoxicillin/Clavulanate Potassium 1 tablet 02/20/25 14:00 02/21/25 13:31 Amoxicillin/Clavulanate K 500-125 Mg Tab PO 02/27/25 22:01 1 tablet Q8HR KIRSTEN Administration Fentanyl Citrate 25 mcg 02/19/25 08:06 Fentanyl Citrate Inj (*Crx) 100 Mcg/2 Ml Vial IV PUSH Q2M PRN Pain Ferrous Sulfate 325 mg 02/20/25 17:00 02/21/25 17:15 Ferrous Sulfate [address] PO 325 mg BID KIRSTEN Administration Heparin Sodium (Porcine) 5,000 units 02/18/25 09:00 02/21/25 08:40 Heparin Sodium 5,000 Units/Ml Vial SUB-Q 5,000 units Q12HR KIRSTEN Administration Magnesium Chloride 64 mg 02/20/25 09:00 02/21/25 08:40 Magnesium Chloride 64 Mg Tablet PO 64 mg DAILY KIRSTEN Administration Ondansetron HCl 4 mg 02/17/25 22:27 Ondansetron Inj 4 Mg/2 Ml Vial IV PUSH Q4H PRN Nausea Ondansetron HCl 4 mg 02/19/25 08:06 Ondansetron Inj 4 Mg/2 Ml Vial IV PUSH ONCE PRN Nausea Ropinirole HCl 3 mg 02/18/25 21:00 02/20/25 20:03 Ropinirole Hcl 1 Mg Tablet PO 3 mg HS KIRSTEN Administration Radiology Results: ITS Impressions Chest X-Ray 02/17/25 16:46 IMPRESSION: 1: NO ACUTE CARDIOPULMONARY DISEASE. Chest/Abdomen/Pelvis CT 02/17/25 20:23 IMPRESSION: Significant right-sided hydroureteronephrosis without an obstructing stone visualized. Renal Ultrasound 02/18/25 08:52 Impression: 1: Enlarged right kidney with moderate hydronephrosis. Possible 11 mm cyst. Abdomen/Pelvis CT 02/19/25 06:47 IMPRESSION: Redemonstration of significant right-sided hydroureteronephrosis with induration at the level of the bladder in the presacral space with extension anteriorly, possibly the source of patient's obstruction. Remainder of the examination is grossly unchanged from previous study performed 36 and 24 hours earlier. Labs Labs: Laboratory Tests 02/21/25 04:53 02/21/25 04:53 Calcium 8.7 Total Bilirubin 0.8 AST 42 ALT 63 H Alkaline Phosphatase 91 Total Protein 7.0 Albumin 3.1 L
[2025-02-21] MEDS: rOPINIRole HCL 1 MG TABLET 3 MG PO (21:54)
[2025-02-21] MEDS: ACETAMINOPHEN 325 MG TABLET 650 MG PO (21:59)
[2025-02-22] VITALS: PULSE 68
[2025-02-22 04:00] VITALS: PULSE 66
[2025-02-22 05:03] VITALS: BP 155/69; PULSE 64; RESP 17; TEMP 36.8; O2SAT 97
[2025-02-22 05:24] LABS: Basophils Percent Auto 0.3 % (0.2-1.2); Eosinophils Absolute Auto 0.1 K/mm3 (0-0.3); Hematocrit 30.1 % (42.0-52.0); Hemoglobin 9.6 g/dL (14.0-18.0); Immature Granulocyte Absolute 0.05 K/mm3 (0.00-0.031); Immature Granulocyte Percent A 0.7 % (0-0.5); Lymphocytes Absolute Auto 1.08 K/mm3 (0.9-3.2); Lymphocytes Percent Auto 15.7 % (18.3-44.2); Mean Corpuscular HGB Conc 31.9 g/dl (32-36); Mean Corpuscular Volume 94.1 fl (80-100); Mean Platelet Volume 10.3 fl (7.4-10.4); Monocytes Absolute Auto 0.6 K/mm3 (0.1-0.6); Monocytes Percent Auto 8.9 % (2.6-8.5); Neutrophils Absolute Auto 5.1 K/mm3 (1.3-6.7); Neutrophils Percent Auto 73.4 % (45.5-73.1); Platelet Count Result 192 k/mm3 (150-375); Red Cell Distribution Width 13.3 % (11.5-14.5); White Blood Count 6.9 K/mm3 (4.5-10.0)
[2025-02-22 05:25] LABS: Alanine Aminotransferase 79 U/L (6-50); Albumin Level 3.4 g/dL (3.5-5.1); Alkaline Phosphatase 116 U/L (38-126); Anion Gap 13 mmol/L (4-12); Aspartate Amino Transferase 51 U/L (17-59); Bilirubin,Total 0.7 mg/dL (0.2-1.3); Blood Urea Nitrogen 48 mg/dL (9-20); Calcium 8.9 mg/dL (8.4-10.2); Carbon Dioxide 20 mmol/L (22-30); Chloride 103 mmol/L (98-107); Estimated CRCL calculation 19 ml/min; Estimated Glomerular Filt Rate 20; Glucose 108 mg/dL (65-110); Potassium 4.8 mmol/L (3.4-5.0); Sodium 136 mmol/L (137-145)
[2025-02-22] MEDS: AMOXICILLIN/CLAVULANATE K 500-125 MG TAB 1 TABLET PO ×2 (05:28→13:44)
[2025-02-22] MEDS: ACETAMINOPHEN 325 MG TABLET 650 MG PO (05:31)
[2025-02-22 08:00] VITALS: PULSE 76
--- NOTE | 2025-02-22 08:06 | PM.IMPN ---
Progress Note: A&P Assessment and Plan (1) Sepsis: Code(s): A41.9 - Sepsis, unspecified organism Status: Acute Assessment and Plan: Meets SIRS criteria: hypotension, leukocytosis, meri - lactic acid: 1.5 - Received sepsis bolus in the ED - started on meropenem on 02/17, discussed with ID pharmacy and transitioned to Augmentin on 02/20. Course to be completed on 02/27 - suspected source: UTI - blood cultures drawn on 02/17: ecoli - UA: cloudy appearance with 3+ protein, 2+ blood, 2+ leukocytes, 6-10 RBC, > 100 WBC, 4+ bacteria - Urine culture: ecoli - CXR unremarkable - Chest/abdomen/pelvis CT: Significant right-sided hydroureteronephrosis without an obstructing stone visualized. Vitals stable, hypotension and fever resolved. WBC WNL. See plan below. Resolved. (2) Urinary tract infection: Code(s): N39.0 - Urinary tract infection, site not specified Status: Acute Assessment and Plan: Previously treated bactrim on 02/06 for concern of UTI. - UA: cloudy appearance with 3+ protein, 2+ blood, 2+ leukocytes, 6-10 RBC, > 100 WBC, 4+ bacteria - Urine culture: ecoli - previous micro reviewed 11/28/19: Klebsiella pneumoniae panresistant except to meropenem - started on meropenem on 02/17, discussed with ID pharmacy and transitioned to Augmentin on 02/20. Course to be completed on 02/27 (3) Acute on chronic kidney failure: Code(s): N17.9 - Acute kidney failure, unspecified; N18.9 - Chronic kidney disease, unspecified Status: Acute Assessment and Plan: Etiology of his worsening renal function is not entirely clear however this is likely due to a combination of factors including sepsis from urinary tract infection, dehydration from poor appetite and insensible losses from fevers, and hypoperfusion from relative hypotension. - BUN/Cr 62/4.32 on GFR 13 on admission, now 56/3.32 on am labs - CK WNL - Renal US: Enlarged right kidney with moderate hydronephrosis. Possible 11 mm cyst. - Avoid nephrotoxic medications - Renally dose medications - NS discontinued, patient having good oral intake. - Monitor I/O. Current UOP WNL. - Nephrology consulted-following BUN/CR improving-3. (4) Hydroureteronephrosis: Code(s): N13.30 - Unspecified hydronephrosis Status: Acute Assessment and Plan: - Chest/abdomen/pelvis CT: Significant right-sided hydroureteronephrosis without an obstructing stone visualized. - Urology consulted Repeat CT showed redemonstration of significant right-sided hydroureteronephrosis with induration at the level of the bladder in the presacral space with extension anteriorly, possibly the source of patient's obstruction. S/p Cystoscopy, right retrograde pyelogram, right ureteral stent insertion on 02/[address] Brown Maintain indwelling Sams to maximize drainage. Plan to follow-up with his established urologist at [facility] [place] on discharge to further assess need for stent removal vs. exchange. urology/nephology following (5) Electrolyte abnormality: Code(s): E87.8 - Other disorders of electrolyte and fluid balance, not elsewhere classified Status: Acute Assessment and Plan: K 6.5 on admission. Hyperkalemia is related to acidosis from worsening renal function and likely the Bactrim. Given albuterol, lokelma 10 mg, and insulin 5 units x2. K improved to 5.4. Given another dose of lokelma. K 6.7 on 02/18 am labs. Given albuterol and another lokelma. K improved to 5.3. K returned to normal on am labs at 4.8. Magnesium was low as well at 1.0 on admission. Supplemented. Continue to monitor. Resolved. (6) Metabolic acidosis: Code(s): E87.20 - Acidosis, unspecified Status: Acute Assessment and Plan: Bicarb 10 on admission. VBG: pH 7.3, pCO2 31.9, pO2 50.4, and HCO3 15.3. Given 50 Meq Bicarb x2. Bicarb 15 on 02/19 am labs. Given 50 Meq bicarb x1. Bicarb 20 on am labs. remains stable (7) Hypertension: Code(s): I10 - Essential (primary) hypertension Status: Acute Assessment and Plan: Chronic Hypotensive on arrival, responded well to fluids. Resume amlodipine 10 mg daily and continue holding irbesartan 75 mg daily for ongoing MERI and hyperkalemia, resume when appropriate Blood pressures reviewed and currently stable. (8) Anemia: Code(s): D64.9 - Anemia, unspecified Status: Acute Assessment and Plan: Hgb 11.4 on admission, now 7.8 on am labs. Possibly dilutional as patient has been receiving IV fluids for ongoing MERI since admission however recent procedure and hematuria noted in sams catheter. Repeat H/H this afternoon: 9.4/30.4 - H/H remains stable, continue to monitor - No signs of active bleeding - Iron panel: Iron 24, TIBC 198, % sat 12. Started on iron supplementation. - B12 and folate WNL 02/22- hg 9.6- stable Time Spent With Patient Time with patient: 25 - 35 minutes Subjective Date/time seen: 02/22/25 08:06 Interval history: 74-year-old male with history of Crohn's disease, colon cancer status post total colectomy and partial small-bowel resection with ileostomy, left nephrectomy due to poor functioning kidney and what sounds like matrix stones, chronic kidney disease (baseline creatinine is ?in the threes, followed by Dr. Dixon at [facility]), hypertension, and hyperlipidemia who presented to the hospital via private vehicle with complaints of fever. Assuming care. Pt is seen and examined. Denies chest pain, palpitations, shortness of breath, nausea/vomiting and abdominal pain. bun/cr improved. Augmentin to be completed on 02/27 Review of Systems Review of Systems: 12 systems were reviewed and are negative except for as per HPI. All systems reviewed & are unremarkable except as noted in HPI and below Exam Narrative: General: male in no acute respiratory distress who is nontoxic appearing, sitting on the side of bed HEENT: Normocephalic. Atraumatic. No facial asymmetry. Chest: Lungs are clear to auscultation bilaterally. No wheezes or crackles. CV: Heart was regular rate and rhythm. Abd: Abdomen was soft. Nontender. Nondistended. Positive bowel sounds. : No hematuria, sams in place Ext: No clubbing, cyanosis, or edema. DP pulses bilaterally. Const: General: comfortable Objective Data Vital Signs Vital Signs: Vital Signs - 24 hr 02/21/25 08:40 02/21/25 12:00 02/21/25 14:00 Temperature 97.7 F Pulse Rate 68 68 Respiratory Rate 17 Blood Pressure 138/68 Pulse Oximetry 98 Oxygen Delivery Room Air 02/21/25 16:00 02/21/25 19:50 02/21/25 20:00 Temperature 98.0 F Pulse Rate 53 L 66 68 Respiratory Rate 18 Blood Pressure 155/76 H Pulse Oximetry 97 Oxygen Delivery 02/21/25 21:00 02/22/25 00:00 02/22/25 04:00 Temperature Pulse Rate 68 66 Respiratory Rate Blood Pressure Pulse Oximetry Oxygen Delivery Room Air 02/22/25 05:03 Temperature 98.2 F Pulse Rate 64 Respiratory Rate 17 Blood Pressure 155/69 H Pulse Oximetry 97 Oxygen Delivery Intake/Output Intake/Output: Intake & Output 02/19/25 02/20/25 02/21/25 02/22/25 23:59 23:59 23:59 23:59 Intake Total 1530 1782 2460 550 Output Total 2552 2750 5150 1950 [facility] -[phone] Meds/Results Medications: Active Medications Generic Name Dose Route Start Last Admin Trade Name Freq PRN Reason Stop Dose Admin Acetaminophen 650 mg 02/18/25 05:26 02/22/25 05:31 Acetaminophen 325 Mg Tablet PO 650 mg Q6H PRN Administration Mild Pain (1-3) or Fever Amlodipine Besylate 10 mg 02/20/25 09:00 02/21/25 08:40 Amlodipine Besylate 10 Mg Tablet PO 10 mg DAILY KIRSTEN Administration Amoxicillin/Clavulanate Potassium 1 tablet 02/20/25 14:00 02/22/25 05:28 Amoxicillin/Clavulanate K 500-125 Mg Tab PO 02/27/25 22:01 1 tablet Q8HR KIRSTEN Administration Fentanyl Citrate 25 mcg 02/19/25 08:06 Fentanyl Citrate Inj (*Crx) 100 Mcg/2 Ml Vial IV PUSH Q2M PRN Pain Ferrous Sulfate 325 mg 02/20/25 17:00 02/21/25 17:15 Ferrous Sulfate [address] PO 325 mg BID KIRSTEN Administration Heparin Sodium (Porcine) 5,000 units 02/18/25 09:00 02/21/25 21:55 Heparin Sodium 5,000 Units/Ml Vial SUB-Q 5,000 units Q12HR KIRSTEN Administration Magnesium Chloride 64 mg 02/20/25 09:00 02/21/25 08:40 Magnesium Chloride 64 Mg Tablet PO 64 mg DAILY KIRSTEN Administration Ondansetron HCl 4 mg 02/17/25 22:27 Ondansetron Inj 4 Mg/2 Ml Vial IV PUSH Q4H PRN Nausea Ondansetron HCl 4 mg 02/19/25 08:06 Ondansetron Inj 4 Mg/2 Ml Vial IV PUSH ONCE PRN Nausea Ropinirole HCl 3 mg 02/18/25 21:00 02/21/25 21:54 Ropinirole Hcl 1 Mg Tablet PO 3 mg HS KIRSTEN Administration Radiology Results: ITS Impressions Chest X-Ray 02/17/25 16:46 IMPRESSION: 1: NO ACUTE CARDIOPULMONARY DISEASE. Chest/Abdomen/Pelvis CT 02/17/25 20:23 IMPRESSION: Significant right-sided hydroureteronephrosis without an obstructing stone visualized. Renal Ultrasound 02/18/25 08:52 Impression: 1: Enlarged right kidney with moderate hydronephrosis. Possible 11 mm cyst. Abdomen/Pelvis CT 02/19/25 06:47 IMPRESSION: Redemonstration of significant right-sided hydroureteronephrosis with induration at the level of the bladder in the presacral space with extension anteriorly, possibly the source of patient's obstruction. Remainder of the examination is grossly unchanged from previous study performed 36 and 24 hours earlier. Labs Labs: Laboratory Results - last 24 hr 02/22/25 04:22 WBC 6.9 RBC 3.20 L Hgb 9.6 L Hct 30.1 L MCV 94.1 MCH 30.0 MCHC 31.9 L RDW 13.3 Plt Count 192 MPV 10.3 Immature Gran % (Auto) 0.7 H Neut % (Auto) 73.4 H Lymph % (Auto) 15.7 L [place] % (Auto) 8.9 H Eos % (Auto) 1.0 Baso % (Auto) 0.3 Lymph # (Auto) 1.08 [place] # (Auto) 0.6 Eos # (Auto) 0.1 Baso # (Auto) 0.0 Abs Immat Gran (auto) 0.05 H Absolute Neuts (auto) 5.1 Absolute Nucleated RBC 0.000 Nucleated RBC % 0.0 Sodium 136 L Potassium 4.8 Chloride 103 Carbon Dioxide 20 L Anion Gap 13 H BUN 48 H Creatinine 3.12 H Estim Creat Clear Calc 19 Estimated GFR 20 L Glucose 108 Calcium 8.9 Total Bilirubin 0.7 AST 51 ALT 79 H Alkaline Phosphatase 116 Total Protein 7.0 Albumin 3.4 L Quality VTE Prophylaxis VTE prophylaxis: mechanical ordered and pharmacologic ordered
[2025-02-22] MEDS: MAGNESIUM CHLORIDE 64 MG TABLET PO (08:35)
[2025-02-22] MEDS: amLODIPine BESYLATE 10 MG TABLET PO (08:35)
[2025-02-22] MEDS: FERROUS SULFATE 325 MG TABLET DR PO (08:35)
[2025-02-22] MEDS: HEPARIN SODIUM 5,000 UNITS/ML VIAL 5000 UNITS SUB-Q (08:36)
--- NOTE | 2025-02-22 12:36 | PM.DS ---
DS: Admitting Diagnosis Discharge Date 02/22 Admitting Diagnosis fever DS: Discharge Diagnosis Discharge Diagnosis (1) Sepsis: Code(s): A41.9 - Sepsis, unspecified organism Status: Acute (2) Urinary tract infection: Code(s): N39.0 - Urinary tract infection, site not specified Status: Acute (3) Acute on chronic kidney failure: Code(s): N17.9 - Acute kidney failure, unspecified; N18.9 - Chronic kidney disease, unspecified Status: Acute (4) Hydroureteronephrosis: Code(s): N13.30 - Unspecified hydronephrosis Status: Acute (5) Electrolyte abnormality: Code(s): E87.8 - Other disorders of electrolyte and fluid balance, not elsewhere classified Status: Acute (6) Metabolic acidosis: Code(s): E87.20 - Acidosis, unspecified Status: Acute (7) Hypertension: Code(s): I10 - Essential (primary) hypertension Status: Acute (8) Anemia: Code(s): D64.9 - Anemia, unspecified Status: Acute DS: Summary Hospital Course Hospital Course: 74-year-old male with history of Crohn's disease, colon cancer status post total colectomy and partial small-bowel resection with ileostomy, left nephrectomy due to poor functioning kidney and what sounds like matrix stones, chronic kidney disease (baseline creatinine is ?in the threes, followed by Dr. Dixon at [facility]), hypertension, and hyperlipidemia who presented to the hospital via private vehicle with complaints of fever. Several issues were addressed: # sepsis Meets SIRS criteria: hypotension, leukocytosis, ginny - lactic acid: 1.5 - Received sepsis bolus in the ED - started on meropenem on 02/17, discussed with ID pharmacy and transitioned to Augmentin on 02/20. Course to be completed on 02/27 - suspected source: UTI - blood cultures drawn on 02/17: ecoli - UA: cloudy appearance with 3+ protein, 2+ blood, 2+ leukocytes, 6-10 RBC, > 100 WBC, 4+ bacteria - Urine culture: ecoli - CXR unremarkable - Chest/abdomen/pelvis CT: Significant right-sided hydroureteronephrosis without an obstructing stone visualized. Vitals stable, hypotension and fever resolved. WBC WNL. See plan below. Resolved. #UTI Previously treated bactrim on 02/06 for concern of UTI. - UA: cloudy appearance with 3+ protein, 2+ blood, 2+ leukocytes, 6-10 RBC, > 100 WBC, 4+ bacteria - Urine culture: ecoli - previous micro reviewed 11/28/19: Klebsiella pneumoniae panresistant except to meropenem - started on meropenem on 02/17, discussed with ID pharmacy and transitioned to Augmentin on 02/20. Course to be completed on 02/27 pt is being discharged with Sams # Acute on chronic kidney failure: Etiology of his worsening renal function is not entirely clear however this is likely due to a combination of factors including sepsis from urinary tract infection, dehydration from poor appetite and insensible losses from fevers, and hypoperfusion from relative hypotension. - BUN/Cr 62/4.32 on GFR 13 on admission, now 56/3.32 on am labs - CK WNL - Renal US: Enlarged right kidney with moderate hydronephrosis. Possible 11 mm cyst. - Avoid nephrotoxic medications - Renally dose medications - NS discontinued, patient having good oral intake. - Monitor I/O. Current UOP WNL. - Nephrology consulted. Pt renal function is slowly improving. Will give lab order ot be completed within a week after discharge Status at Discharge Functional status at discharge: independent ambulation Overall status at discharge: patient is progressing back to baseline Time Spent with Patient Time attestation: Total time spent providing and/or coordinating discharge services: Time spent: Greater than 30 minutes Exam Narrative: General: male in no acute respiratory distress who is nontoxic appearing, laying in bed HEENT: Normocephalic. Atraumatic. No facial asymmetry. Chest: Lungs are clear to auscultation bilaterally. No wheezes or crackles. CV: Heart was regular rate and rhythm. Abd: Abdomen was soft. Nontender. Nondistended. Positive bowel sounds. : No hematuria, sams in place Ext: No clubbing, cyanosis, or edema. DP pulses bilaterally. Const: General: comfortable DS: Data Data Completed and Pending Completed studies during hospitalization: renal ultrasound, abd/pelvis ct, retragrade pyelogram Labs on day of discharge: Labs from last 24 hours 02/22/25 04:22 WBC 6.9 RBC 3.20 L Hgb 9.6 L Hct 30.1 L MCV 94.1 MCH 30.0 MCHC 31.9 L RDW 13.3 Plt Count 192 MPV 10.3 Immature Gran % (Auto) 0.7 H Neut % (Auto) 73.4 H Lymph % (Auto) 15.[address] [place] % (Auto) 8.9 H Eos % (Auto) 1.0 Baso % (Auto) 0.3 Lymph # (Auto) 1.08 [place] # (Auto) 0.6 Eos # (Auto) 0.1 Baso # (Auto) 0.0 Abs Immat Gran (auto) 0.05 H Absolute Neuts (auto) 5.1 Absolute Nucleated RBC 0.000 Nucleated RBC % 0.0 Sodium 136 L Potassium 4.8 Chloride 103 Carbon Dioxide 20 L Anion Gap 13 H BUN 48 H Creatinine 3.12 H Estim Creat Clear Calc 19 Estimated GFR 20 L Glucose 108 Calcium 8.9 Total Bilirubin 0.7 AST 51 ALT 79 H Alkaline Phosphatase 116 Total Protein 7.0 Albumin 3.4 L Discharge Plan Discharge Attending physician on discharge: Beto Bonner Consulting providers: Johana Vincent; Antwon Alfonso Discharging Clinician: Danielle Frost Patient Disposition: Home, Self-Care Activity: as tolerated Diet: renal Discharge Instructions: Take augmentin, you have 17 total doses left- last day for antibiotics 02/27 pm dose. (take it am and pm) Please, follow-up with your established urologist at [facility] on discharge to further assess need for stent removal vs. exchange. Please follow folley care instructions. I will give you lab requisition- please have your kidney function rechecked within 1 week to ensure it is improving. Patient Instructions: Antibiotic Form, Sams Catheter Placement and Care (GEN), Urinary Leg Bag (GEN) Patient Language: Arabic Stand Alone Forms: General Discharge Information Follow-up/Referrals: Johana Vincent MD [Physician] - 2 Weeks (f/u with your established urologist) Antwon Alfonso MD [Physician] - 2 Weeks UNKNOWN,DOCTOR [Primary Care Provider] - 2 Weeks Discharge Medications: New amoxicillin-pot clavulanate [Augmentin] 500-125 mg Tablet 1 tablet PO Q8HR Qty: 17 0RF Rx Instructions: last dose 02/27 pm dose Continued atorvastatin 20 mg tablet 20 mg PO DAILY ropinirole 3 mg tablet 3 mg PO HS amlodipine 10 mg tablet 10 mg PO DAILY omeprazole 20 mg capsule,delayed release(DR/EC) 20 mg PO DAILY irbesartan 75 mg tablet 75 mg PO DAILY Januvia 50 mg tablet 50 mg PO DAILY Nu-Mag 71.5 mg tablet,delayed release (DR/EC) 71.5 mg PO DAILY cholecalciferol (vitamin D3) 25 mcg (1,000 unit) capsule 25 mcg PO DAILY cyanocobalamin (vitamin B-12) 1,000 mcg capsule 2,000 mcg PO DAILY Date of admission: 02/18/25 07:28 Primary Care Provider: UNKNOWN,DOCTOR Admitting Provider: Danie Kelley Attending physician on admission: Dipti Washburn Condition: Stable Quality VTE Prophylaxis VTE prophylaxis: mechanical ordered and pharmacologic ordered Hospitalist MIPS Heart Failure (Exclusion) Patient has history of Heart Transplant or Left Ventricular Assistive Device?: No IF YES, STOP HERE Heart Failure (Qualifier) Patient has current or prior documentation of LVEF less than or equal to 40%, or mod/servere depressed LVSF?: No IF NO, STOP HERE
== END 2025-02-22 14:00 | disposition home or self-care (01) | DRG 854 ==
LOC: ANHED 22:48 → ANH2MED 23:36
PROVIDERS: Internal Medicine Nephrology; Physician Assistant; Student in an Organized Health Care Education/Training Program; Urology; Admitting Provider Hospitalist; Emergency Provider Student in an Organized Health Care Education/Training Program; Visit Provider Nurse Practitioner
PROC: 0T768DZ Dilation of Right Ureter with Intraluminal Device, Via Natural or Artificial Opening Endoscopic (ICD-10-PCS; CPT 52352; principal; 2025-02-19 08:30)
DX: A41.9 Sepsis, unspecified organism (principal); N13.30 Unspecified hydronephrosis; N39.0 Urinary tract infection, site not specified; N17.9 Acute kidney failure, unspecified; B96.20 Unspecified Escherichia coli [E. coli] as the cause of diseases classified elsewhere; N28.89 Other specified disorders of kidney and ureter; I12.9 Hypertensive chronic kidney disease with stage 1 through stage 4 chronic kidney disease, or unspecified chronic kidney disease; N18.9 Chronic kidney disease, unspecified; E86.0 Dehydration; E87.5 Hyperkalemia; Z20.822 Contact with and (suspected) exposure to COVID-19; D64.9 Anemia, unspecified; G25.81 Restless legs syndrome; E78.5 Hyperlipidemia, unspecified; Z90.5 Acquired absence of kidney; Z85.038 Personal history of other malignant neoplasm of large intestine
CPT/HCPCS: 36415; 71046; 71250; 74176; 74420; 76775; 80048; 80053; 81001; 82550; 82570; 82607; 82746; 82803; 82948; 83036; 83540; 83550; 83605; 83735; 84100; 84132; 84133; 84156; 84300; 85014; 85018; 85025; 85652; 85999; 86140; 86160; 86162; 87040; 87086; 87186; 87637; 93005; 94640; 96361; 96365; 96367; 96375; 96376; 99285; A9270; C1769; C2617; G0378; J0612; J1644; J1815; J2185; J2405; J2704; J3010; J3475; J7030; J7042; J7120; Q9966

== ENCOUNTER 2025-03-01 08:15 | Outpatient (CLI) | payer MEDICARE, SELFPAY ==
--- OUTSIDE RECORDS SUMMARY | 2025-03-01 08:34 | XMS_ITS | Encounter Summary ---
Author Organization [facility] Address [address] [place] [address] Phone Care Team Providers Care Hull Molder Name Role Phone Justin Avery MD Unavailable [phone] Benton Loyd MD Primary Care Provider [phone] Deng Fagan MD Unavailable [phone] Padmini Gonzalez MD Unavailable [phone] Nathaniel Merchant MD Unavailable [phone] Encounter Details Date Type Department Care Team (Late st Contact Info) Description 10/01/2022 Telephone [facility] Department of Surgery, Section of Colon and Rectal Surgery [address] [facility] Advanced Medicine [address]th Floor, [place] [address] Sheyla Rhoades Social History Tobacco [...] on file 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 Gender Identity Not on file Sexual Orientation Not on file documented as of this encounter Plan of Treatment Not on file documented as of this encounter Visit Diagnoses Not on filedocumented in this encounter Additional Health Concerns Infection Onset Date Last Indicated Resolved Time COVID: Suspected 12/12/2024 12/12/2024 12/12/2024 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 as of this encounter Care Teams Hull Molder Relationship Specialty Start Date End Date Benton Loyd MD [address] [facility] [address], [place] [address] PCP - General Internal Medicine 08/24/20 Justin Avery MD Surgeon Colon and Rectal Surgery 10/18/19 Deng Fagan MD [address] [facility] [address], [place] [address] Consulting Physician Urology 10/25/20 [place] [address] [place] [id number] Consulting Physician Urology 11/09/22 Nathaniel Merchant MD [address] [facility] [place] [address] Consulting Physician Gastroenterology 11/09/22 documented as of this encounter
--- OUTSIDE RECORDS SUMMARY | 2025-03-01 08:34 | XMS_ITS | Clinical Summary ---
Author Organization [facility] Address [address] [place] [address] Care Team Providers Care Laundry Agent Name Role Phone Justin Avery MD Unavailable [phone] Benton Loyd MD Primary Care Provider [phone] Deng Fagan MD Unavailable Padmini Gonzalez MD Unavailable [phone] Nathaniel Merchant MD Unavailable [phone] Allergies Active Allergy Reactions Criticality Noted Date [...] (06/04/2022): Added automatically from request for surgery [id number] OAB (overactive bladder) 06/04/2022 Overview (06/04/2022): Added automatically from request for surgery [id number] 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 Overview (02/15/2020): Added automatically from request for surgery [id number] Ileostomy care 09/23/2017 History of malignant neoplasm of rectum 08/18/20 14 Crohn's disease of rectum 12/07/2009 Encounters Date Type Department Care Team Description 02/09/2025 Results Follow-Up [facility] Medical Group Convenient Care at [address] [address] Jackson Childers NP 02/08/2025 11:26 AM CDT - 02/08/2025 11:59 PM CDT Hospital Encounter [address] [address] Cystitis with hematuria Discharge Disposition: Discharge to home or self care 02/08/2025 8:45 AM CDT Office Visit [facility] Medical Group Convenient Care at [address] [address] Radha Baca PA Cystitis with hematuria (Primary Dx) 12/13/2024 Telephone [facility] Surgery [address] [place] [address] 5 [place] [address] Shante Porter RMA Test Results 12/12/2024 1:45 PM ROLLER MACHINE OPERATOR Lab [facility] - Lab Collection [address] [place] [address] 5 [place] [address] History of malignant neoplasm of rectum 12/12/2024 12:45 PM ROLLER MACHINE OPERATOR Office Visit [facility] Surgery [address] [place] [address] 5 [place] [address] Justin Avery MD History of malignant neoplasm of rectum (Primary Dx); Stage 4 chronic kidney disease (HCC); 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); Crohn's disease of rectum without complication (HCC) 12/12/2024 9:40 AM ROLLER MACHINE OPERATOR Ancillary Procedure [facility] Imaging at [address] [address] Acute cough 12/12/2024 9:30 AM ROLLER MACHINE OPERATOR Office Visit [facility] Convenient Care at [address] [address] Shante Mcclure, JIE Acute cough (Primary Dx); Acute non-recurrent maxillary sinusitis from Last 3 Months Immunizations Immunization Administration [...] 02/24/2018 Surgical History Surgery Date Site/Laterality Comments ID REVISION PRIOR HYPOSPADIAS REPAIR DSJ&EXC RCNSTJ Surg Penis Repair Of Hypospadias Cripple - 03/11/05 (Added by TW Conv) ID CYSTOURETHROSCOPY W/INTERNAL URETHROTOMY Cystoscopy With Internal Urethrotomy, Direct Vision - 03/30/07 (Added by TW Conv) ID CYSTOURETHROSCOPY W/STEROID INJECTION STRICTURE Cystoscopy For Urethral Stricture With Steroid Injection - 03/30/07 (Added by TW Conv) ID NJX RETROGRADE URETHROCSTOGRAPY Bladder Injection Procedure For Retrograde Cystourethrogram - 03/30/07 (Added by TW Conv) ID COLECTOMY TOT ABDL W/PROCTECTOMY W/ILEOSTOMY Total Proctocolectomy - 07/21/06 (Added by TW Conv) ID APPENDECTOMY 11/30/1964 - 11/29/1965 Appendectomy - (Added by TW Conv) ID COLCT TOT ABDL W/O PRCTECT W/ILEOST/ILEOPXTS 11/30/2005 - 11/29/2006 Total Abdominal Colectomy With Ileostomy - (Added by TW Conv) ILEOSTOMY Ileostomy Care - (Added by TW Conv) ID NEPHRECTOMY W/PRTL URETERECTOMY W/OPEN RIB RESCJ 11/30/2011 [...] on file Legal Sex Male 4:34 PM ROLLER MACHINE OPERATOR Gender Identity Not on file Sexual [...] (5' 9 ) 12/12/2024 12:0 8 PM ROLLER MACHINE OPERATOR Body Mass Index 26.29 12/12/2024 12:08 PM ROLLER MACHINE OPERATOR Plan of Treatment Health Maintenance Due [...] 02/25/2028 02/24/2018, 02/24/2018 Pneumococcal vaccine 65+ Completed 11/14/ 019, 04/14/2016, 04/02/2015, Additional history exists Medical Devices Implanted Type Area Clay Hoister Device Identifier Shelf Expiration Date Model / Serial / Lot Medtronic Inc Generator Neurostimulator Bowel Bladder Recharge Free Interstim X [id number] - [id number] Implanted:Qty: 1 on 08/13/2022 by Padmini Gonzalez MD at [facility] Neurostimulator Medtronic Inc [id number] / / Medtronic Inc Interstim 28cm Quadripolar Mri Finished Cigar Maker Neurostimulator [id number] - Sna - [id number] Implanted:Qty: 1 on 07/30/2022 by Padmini Gonzalez MD at [facility] Other - see comments N/A: Back Medtronic Inc 12/19/2023 [id number] / NA / [id number] Description:Lower back Implant pause performed interstim Medtronic Inc Interstim 100cm Percutaneous Electrode Insulated Kit [id number] - Sna - [id number] Implanted:Qty: 1 on 07/30/2022 by Padmini Gonzalez MD at [facility] Other - see comments N/A: Back Medtronic Inc 04/25/2024 [id number] / NA / [id number] Description:Lower back Implant pause performed interstim Procedures Procedure Name Priority Date/Time Associated Diagnosis Comments URINE CULTURE Routine 02/08/2025 11:26 AM CDT Cystitis with hematuria POCT URINALYSIS DIPSTICK Routine 02/08/2025 8:47 AM CDT Cystitis with hematuria CEA Routine 12/12/2024 1:24 PM ROLLER MACHINE OPERATOR History of malignant neoplasm of rectum XR CHEST PA LATERAL 2 VIEWS Schedule SRAVANI, Read SRAVANI (Appt Today, Awaiting Results) 12/12/2024 9:52 AM ROLLER MACHINE OPERATOR Acute cough POC INFLUENZA A/B, COVID-19 ANTIGEN Routine 12/12/2024 9:31 AM ROLLER MACHINE OPERATOR Acute non-recurrent maxillary sinusitis POCT RAPID STREP Routine 12/12/2024 9:20 AM ROLLER MACHINE OPERATOR Acute non-recurrent maxillary sinusitis from Last 3 Months Results * Urine culture Urine, clean voided (02/08/2025 11:26 AM CDT) Report Final Report: Less than 100,000 colonies/mL (clinically insignificant growth based on current clinical standards) Comment:Testing performed by : [facility], [address] [place]., [address] Organism (CLINICALLY INSIGNIFICANT GROWTH [facility] Urine, clean voided 02/08/2025 11:26 AM CDT 02/08/2025 6:04 PM CDT Narrative JUSTINE - 02/09/2025 7:50 PM CDT Testing performed by [facility] Microbiology Laboratory ([phone]) Shante Mcclure NP LAB MICROBIOLOGY - GENERAL ORDERABLES Final Result [facility] [address] [address] [place] [address] * (ABNORMAL) POCT urinalysis dipstick (02/08/2025 8:47 AM CDT) Color, Urine, POC Dark Yellow Clarity, ur, POC Cloudy(A) Clear Glucose, ur, POC Negative Negative MG/DL Bilirubin, ur, POC Negative Negative, Small, Moderate, Large Ketones, ur, POC Negative Negative Specific [place], POC 1.025 1.003 - 1.030 Blood, ur, POC Large(A) Negative pH, ur, POC 5.5 5.0 - 8.0 Protein, ur, POC 300.(A) Negative Urobilinogen, urine, POC 0.2 0.2 - 1.0 mg/dL Nitrite, ur, POC Negative Negative Leukocytes, ur, POC Small(A) Negative Lot Number [id number] Urine 02/08/2025 8:47 AM CDT us Shante Mcclure NP POINT OF CARE TEST ORDERAB LES Final Result * CEA (12/12/2024 1:24 PM ROLLER MACHINE OPERATOR) CEA 0.8 <=5.0 ng/mL Comment: Interpretive Data: Reference Range: Non-Smokers: 0.0 5.0 ng/mL Smokers: 0.0 6.5 ng/mL The Juliet CEA assay procedure was used. Results from different manufacturers or methods may not be comparable. Serial testing should be performed using the same method. Current interpretive data was last revised 2022. Blood 12/12/2024 1:24 PM ROLLER MACHINE OPERATOR 12/12/2024 2:00 PM ROLLER MACHINE OPERATOR Justin Avery MD LAB BLOOD ORDERABLES Final R esult [facility] [place] [address] * XR Chest Pa Lateral 2 Views (12/12/2024 9:52 AM ROLLER MACHINE OPERATOR) Anatomical Region Laterality Modality Body, Chest N/A Digital Radiogra phy 12/12/2024 1:02 PM ROLLER MACHINE OPERATOR Narrative 12/12/2024 1:03 PM ROLLER MACHINE OPERATOR EXAM DESCRIPTION: XR CHEST PA LATERAL [...] Pro Marcus M.D. RB T: Report ID: [id number] Reading Location: [id number] Procedure Note Pro Marcus MD - 12/12/2024 [...] Pro Marcus M.D. RB T: Report ID: [id number] Reading Location: [place] [address] Shante Mcclure AUTO DAMAGE APPRAISER IMG XR PROCEDURES Final Re sult * POC Influenza A/B, COVID-19 antigen (12/12/2024 9:31 AM ROLLER MACHINE OPERATOR) Influenza A Ag, POC Negative Negative [facility] Influenza B Ag, POC Negative Negative [facility] COVID-19 Ag POC Presumptive Negative Presumptive Negative, Invalid [facility] Nasal 12/12/2024 9:31 AM ROLLER MACHINE OPERATOR Shante Mcclure AUTO DAMAGE APPRAISER POINT OF CARE TEST ORDERAB LES Final Result [facility] [address] [place] [address] * POCT rapid strep A (12/12/2024 9:20 AM ROLLER MACHINE OPERATOR) Rapid Strep A, POC Negative Negative Swab 12/12/2024 9:20 AM ROLLER MACHINE OPERATOR us Shante Mcclure NP POINT OF CARE TEST ORDERAB LES Final Result from Last 3 Months Insurance T MEDICARE T MEDICARE T MEDICARE Advance Directives For more information, please contact: [phone] Documents on File Type Date Recorded Patient Guard Supervisor Expl anation ADVANCE DIRECTIVE 10/02/2020 11:54 AM Marcos r of Casting Tester-Medical * Full Code (Latest Code Status on File) Date Activated Date Inactivated Comments 08/13/2022 11:15 AM 08/14/2022 1:47 PM * Full Code Date Activated Date Inactivated Comments 11/11/2021 4:15 PM 11/11/2021 9:54 PM Care Teams Laundry Agent Relationship Specialty Start Date End Date Benton Loyd MD [address] [facility] [address], [place] [address] PCP - General Internal Medicine 08/24/20 Justin Avery MD Surgeon Colon and Rectal Surgery 10/18/19 Deng aFgan MD [address] [facility] [address], [place] [address] Consulting Physician Urology 10/25/20 [place] [address] [place] [address] Consulting Physician Urology 11/09/22 Nathaniel Merchant MD 1 [facility] DIV IM [place]STR[place] [address] Consulting Physician Gastroenterology 11/09/22
--- OUTSIDE RECORDS SUMMARY | 2025-03-01 08:34 | XMS_ITS | Patient Health Record ---
Author Organization [facility] Address [address] [place] [address], [place] [address] Care Team Providers Care Desk Pens Assembler Name Role Phone Benton Loyd Primary Care Provider Unavaila wisam Oakes MD, John Unavailable [phone] ALLERGIES No Known Allergies REASON FOR REFERRAL [...] other than malignant neoplasm (Z09) Active confirmed 552130598 Problem Primary osteoarthritis, left ankle and foot (M19.072) 06/05/20 19 Active confirmed 247174706 Problem Other meniscus derangements, other medial meniscus, right knee (M23.331) Active confirmed 275203757 Problem Other articular cartilage disorders, right shoulder (M24.111) Active confirmed 022133104 Problem Low back pain (M54.5) Active confirmed Low back pain (883939914) Problem Olecranon bursitis, right elbow (M70.21) 08/19/20 21 Active confirmed 973221462303893 Problem Impingement syndrome of right shoulder (M75.41) Active confirmed 218099136054618 Problem Other shoulder lesions, left shoulder (M75.82) Active confirmed 155186656 Problem Other specified soft tissue disorders (M79.89) Active confirmed 41710406 Problem Strain of muscle(s) and tendon(s) of the rotator cuff of right shoulder, initial encounter (S46.011A) Active confirmed 928007001 Problem Strain of muscle(s) and tendon(s) of the rotator cuff of right shoulder, subsequent encounter (S46.011D) Active confirmed 684001004 Problem Strain of muscle(s) and tendon(s) of the rotator cuff of left shoulder, initial encounter (S46.012A) Active confirmed 60690537 Problem Instability of internal left knee prosthesis, 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) Active confirmed Prosthetic join t dislocation (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) Problem Activity, digging, shoveling and raking (Y93.H1) Active confirmed 357711431 Problem Aftercare following joint replacement surgery (Z47.1) Active confirmed History of musculoskeletal operation (971299018) Problem Encounter for other orthopedic aftercare (Z47.89) Active confirmed 157391493 Problem Presence of left artificial knee joint (Z96.652) Active confirmed Artificial k nee joint present (211270139692) Problem Olecranon bursitis of left elbow (M70.22) Active confirmed Inflammation of bursa of olecranon (467511805) Problem Knee pain, right (M25.561) Active confirmed Pain of right k nee region (finding) (892202210299097) Problem Localized primary osteoarthritis of left lower leg (M17.12) Active confirmed 017469571 Problem Overexertion from strenuous movement or load, initial encounter (X50.0XXA) Active confirmed 53703265 Problem Left knee pain, unspecified chronicity (M25.562) Active confirmed 41554224 Problem Right rotator cuff tendinitis (M75.81) Active confirmed 30993647368923833 Problem Encounter for removal of jerry (Z48.02) Active confirmed Removal of suture (50926748) PLAN OF TREATMENT No Information Insurance Providers Payer Name Payer Address Payer Phone Subscriber Number Group Number Insured Name Patient Relationship to Insured Coverage Start Date Coverage End Date [employer] Medicare Advantage PPO [address] [address] [place] [address] [id number] Ganesh Vásquez Self - patient is the [...]
--- OUTSIDE RECORDS SUMMARY | 2025-03-01 08:34 | XMS_ITS | Clinical Summary ---
Author Organization [facility] Address [facility]ly [facility] [place] [address] Care Team Providers Care Hydraulic Technician Name Role Phone Unavailable Primary Care Provider [...]
--- OUTSIDE RECORDS SUMMARY | 2025-03-01 08:34 | XMS_ITS | Encounter Summary ---
Author Organization [facility] Healthcare Address [address] [place] [address] Care Team Providers Care Molder Helper Name Role Phone Justin Avery MD Unavailable [phone] Benton Loyd MD Primary Care Provider [phone] Deng Fagan MD Unavailable [phone] Padmini Gonzalez MD Unavailable [phone] Nathaniel Merchant MD Unavailable [phone] Encounter Details Date Type Department Care Team (Late st Contact Info) Description 02/09/2025 Results Follow-Up [facility] Medical Group Convenient Care at [address] [address] Jackson Childers NP [address] [place] [address] [address] [place] [address] Social History Tobacco Use Types [...] on file Legal Sex Male 4:34 PM SUPERVISOR BINDERY Gender Identity Not on file Sexual Orientation [...] on filedocumented in this encounter Care Teams Molder Helper Relationship Specialty Start Date End Date Benton Loyd MD [address] [place] [address] [address] PCP - General Internal Medicine 08/24/20 Justin Avery MD Surgeon Colon and Rectal Surgery 10/18/19 Deng Fagan MD [address] [place] [address] [address] Consulting Physician Urology 10/25/20 Padmini Gonzalez MD [address] [address] Consulting Physician Urology 11/09/22 Nathaniel Merchant MD [address] [facility] DIV [place] [address] Consulting Physician Gastroenterology 11/09/22 documented as of this encounter
--- OUTSIDE RECORDS SUMMARY | 2025-03-01 08:34 | XMS_ITS | Referral Summary ---
Author Organization [facility] Address [address] [place] [address] Care Team Providers Care Mobile Phlebotomist Name Role Phone Justin Avery MD Unavailable Benton Loyd MD Primary Care Provider [phone] Deng Fagan MD Unavailable Padmini Gonzalez MD Unavailable [phone] Nathaniel Merchant MD Unavailable Encounters Date Type Department Care Team Description 02/09/2025 Results Follow-Up [facility] Medical Group Convenient Care at [address] [address] Jackson Childers NP 02/08/2025 11:26 AM CDT - 02/08/2025 11:59 PM CDT Hospital Encounter [address] [address] Cystitis with hematuria Discharge Disposition: Discharge to home or self care 02/08/2025 8:45 AM CDT Office Visit [facility] Medical Group Convenient Care at [address] [address] Radha Baca PA Cystitis with hematuria (Primary Dx) 12/13/2024 Telephone [facility] [facility] Floor 5 [place] [address] Shante Porter RMA Test Results 12/12/2024 1:45 PM RIBBON HAND Lab [facility] Cancer [place] - Lab Collection [address] [facility] Floor 5 [place] [address] History of malignant neoplasm of rectum 12/12/2024 9:40 AM RIBBON HAND Ancillary Procedure [facility] Medical Group Imaging at [address] [address] Acute cough 12/12/2024 9:30 AM RIBBON HAND Office Visit [facility] Medical Group Convenient Care at [address] [address] Shante Mcclure NP Acute cough (Primary Dx); Acute non-recurrent maxillary sinusitis 12/12/2024 12:45 PM RIBBON HAND Office Visit 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); Crohn's disease of rectum without complication (HCC) from Last 3 Months Allergies Active Allergy [...] (06/04/2022): Added automatically from request for surgery [id number] OAB (overactive bladder) 06/04/2022 Overview (06/04/2022): Added automatically from request for surgery [id number] 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 Overview (02/15/2020): Added automatically from request for surgery [id number] Ileostomy care 09/23/2017 History of malignant neoplasm [...] on file Legal Sex Male 4:34 PM RIBBON HAND Gender Identity Not on file Sexual Orientation [...] (5' 9 ) 12/12/2024 12:0 8 PM RIBBON HAND Body Mass Index 26.29 12/12/2024 12:08 PM RIBBON HAND Plan of Treatment Not on file Medical Devices Implanted Type Area Band Instrument Maker Device Identifier Shelf Expiration Date Model / Serial / Lot Medtronic Inc Generator Neurostimulator Bowel Bladder Recharge Free Interstim X 38419 - [id number] Implanted:Qty: 1 on 08/13/2022 by Padmini Gonzalez MD at [facility] Neurostimulator Med[employer]onic Inc 9 7800 / / Medtronic Inc Interstim 28cm Quadripolar Mri Gasateria Attendant Neurostimulator [id number] - Sna - [id number] Implanted:Qty: 1 on 07/30/2022 by Padmini Gonzalez MD at [facility] Other - see comments N/A: Back Medtronic Inc 12/19/2023 [id number] / NA / [id number] Description:Lower back Implant pause performed interstim Medtronic Inc Interstim 100cm Percutaneous Electrode Insulated Kit [id number] - Sna - [id number] Implanted:Qty: 1 on 07/30/2022 by Padmini Gonzalez MD at [facility] Other - see comments N/A: Back Medtronic Inc 04/25/2024 [id number] / NA / [id number] Description:Lower back Implant pause performed interstim Procedures Procedure Name Priority Date/Time Associated Diagnosis Comments URINE CULTURE Routine 02/08/2025 11:26 AM CDT Cystitis with hematuria POCT URINALYSIS DIPSTICK Routine 02/08/2025 8:47 AM CDT Cystitis with hematuria CEA Routine 12/12/2024 1:24 PM RIBBON HAND History of malignant neoplasm of rectum XR CHEST PA LATERAL 2 VIEWS Schedule SRAVANI, Read SRAVANI (Appt Today, Awaiting Results) 12/12/2024 9:52 AM RIBBON HAND Acute cough POC INFLUENZA A/B, COVID-19 ANTIGEN Routine 12/12/2024 9:31 AM RIBBON HAND Acute non-recurrent maxillary sinusitis POCT RAPID STREP Routine 12/12/2024 9:20 AM RIBBON HAND Acute non-recurrent maxillary sinusitis from Last 3 Months Results * Urine culture Urine, clean voided (02/08/2025 11:26 AM CDT) Report Final Report: Less than 100,000 colonies/mL (clinically insignificant growth based on current clinical standards) Comment:Testing performed by : [facility], [address] [place]., [address] Organism (CLINICALLY INSIGNIFICANT GROWTH JUSTINE CARSON Urine, clean voided 02/08/2025 11:26 AM CDT 02/08/2025 6:04 PM CDT Narrative JUSTINE CARSON - 02/09/2025 7:50 PM CDT Testing performed by [facility] Microbiology Laboratory ([phone]) us Shante Mcclure NP LAB MICROBIOLOGY - GENERAL ORDERABLES Final Result JUSTINE CARSON [id number] Department [place] [address] * (ABNORMAL) POCT urinalysis dipstick (02/08/2025 8:47 AM CDT) Color, Urine, POC Dark Yellow Clarity, ur, POC Cloudy(A) Clear Glucose, ur, POC Negative Negative MG/DL Bilirubin, ur, POC Negative Negative, Small, Moderate, Large Ketones, ur, POC Negative Negative Specific [place], POC 1.025 1.003 - 1.030 Blood, ur, POC Large(A) Negative pH, ur, POC 5.5 5.0 - 8.0 Protein, ur, POC 300.(A) Negative Urobilinogen, urine, POC 0.2 0.2 - 1.0 mg/dL Nitrite, ur, POC Negative Negative Leukocytes, ur, POC Small(A) Negative Lot Number [id number] Urine 02/08/2025 8:47 AM CDT Shante Mcclure NP POINT OF CARE TEST ORDERAB LES Final Result * CEA (12/12/2024 1:24 PM RIBBON HAND) CEA 0.8 <=5.0 ng/mL Comment: Interpretive Data: Reference Range: Non-Smokers: 0.0 5.0 ng/mL Smokers: 0.0 6.5 ng/mL The Juliet CEA assay procedure was used. Results from different manufacturers or methods may not be comparable. Serial testing should be performed using the same method. Current interpretive data was last revised 2022. Blood 12/12/2024 1:24 PM RIBBON HAND 12/12/2024 2:00 PM RIBBON HAND Justin Avery MD LAB BLOOD ORDERABLES Final R esult [facility] [place] [address] * XR Chest Pa Lateral 2 Views (12/12/2024 9:52 AM RIBBON HAND) Anatomical Region Laterality Modality Body, Chest N/A Digital Radiogra phy 12/12/2024 1:02 PM RIBBON HAND Narrative 12/12/2024 1:03 PM RIBBON HAND EXAM DESCRIPTION: XR CHEST PA LATERAL 2 [...] 1:03 PM - Electronically signed by Pro Marcsu M.D. RB T: Report ID: [id number] Reading Location: [id number] Procedure Note Pro Marcus MD - 12/12/2024 [...] Pro Marcus M.D. RB T: Report ID: [id number] Reading Location: [id number] Shante Mcclure IN FILE OPERATOR IMG XR PROCEDURES Final Re sult * POC Influenza A/B, COVID-19 antigen (12/12/2024 9:31 AM RIBBON HAND) Influenza A Ag, POC Negative Negative [facility] Influenza B Ag, POC Negative Negative [facility] COVID-19 Ag POC Presumptive Negative Presumptive Negative, Invalid [facility] Nasal 12/12/2024 9:31 AM RIBBON HAND Shante Mcclure IN FILE OPERATOR POINT OF CARE TEST ORDERAB LES Final Result [facility] [address] [place] [address] * POCT rapid strep A (12/12/2024 9:20 AM RIBBON HAND) Rapid Strep A, POC Negative Negative Swab 12/12/2024 9:20 AM RIBBON HAND Shante Mcclure NP POINT OF CARE TEST ORDERAB LES Final Result from Last 3 Months Insurance [address] [address] [facility] MEDICARE [facility] MEDICARE AET[employer] MEDICARE Advance Directives For more information, please contact: [phone] Documents on File Type Date Recorded Patient Lead Oxide Mill Tender Expl anation ADVANCE DIRECTIVE 10/02/2020 11:54 AM Marcos r of Senior Oracle Adf Developer-Medical * Full Code (Latest Code Status on File) Date Activated Date Inactivated Comments 08/13/2022 11:15 AM 08/14/2022 1:47 PM * Full Code Date Activated Date Inactivated Comments 11/11/2021 4:15 PM 11/11/2021 9:54 PM Care Teams Mobile Phlebotomist Relationship Specialty Start Date End Date Benton Loyd MD [address] [facility] [address], [place] [address] PCP - General Internal Medicine 08/24/20 Justin Avery MD Surgeon Colon and Rectal Surgery 10/18/19 Deng Fagan MD [address] [facility] [address], [place] [address] Consulting Physician Urology 10/25/20 [place] [address] [place] [address] Consulting Physician Urology 11/09/22 Nathaniel Merchant MD [address] [facility] [place] [address] Consulting Physician Gastroenterology 11/09/22
[2025-03-01 09:29] LABS: Anion Gap 18 mmol/L (4-12); Blood Urea Nitrogen 53 mg/dL (9-20); Calcium 9.6 mg/dL (8.4-10.2); Carbon Dioxide 12 mmol/L (22-30); Chloride 109 mmol/L (98-107); Estimated Glomerular Filt Rate 19; Glucose 112 mg/dL (65-110); Potassium 4.8 mmol/L (3.4-5.0); Sodium 139 mmol/L (137-145)
[2025-03-01 09:37] LABS: INR 1.1; Prothrombin Time 14.6 Seconds (11.1-14.7)
[2025-03-01 09:38] LABS: Partial Thromboplastin Time 27.1 Seconds (22.3-36.8)
== END 2025-03-01 08:16 | disposition home or self-care (01) ==
PROVIDERS: Anesthesiology; Visit Provider Urology
DX: Z01.812 Encounter for preprocedural laboratory examination (principal); N17.9 Acute kidney failure, unspecified; E11.9 Type 2 diabetes mellitus without complications
CPT/HCPCS: 36415; 80048; 85610; 85730

== ENCOUNTER 2025-03-09 00:39 | Day surgery (SDC) | payer MEDICARE, SELFPAY ==
--- NOTE | 2025-02-27 15:13 | PC.NURSE ---
Report to the Outpatient Waiting Room, entrance under the green pavilion located off [facility], at time _8:15 am on date _03/09/25 . Planned Procedure Time: __10:15 am .? Time changes happen often and if your time is changed the preop area will call you the afternoon before. - You and your visitor will be asked to self-screen and do not enter if you have any COVID symptoms. Please call surgeon if you need to reschedule. - A mask is optional within the hospital at this time. Patients may have clear liquids (water, carbonated beverages, clear teas, apple juice) until 3 hours prior to surgery ( 7:15 am) with a maximum of 20 ounces. - No food from midnight until time of surgery and no smoking, or chewing tobacco (or any form of nicotine). No chewing gum, candy or mints. - Take only the following medications with a SIP of water on the morning of surgery: __amlodipine DO NOT STOP ANY OF YOUR OTHER PRESCRIPTION MEDICATIONS PRIOR TO SURGERY EXCEPT THE FOLLOWING Hold all vitamins and supplements for 3 days per anesthesiologist.last dose 03/05/25 Medications to discontinue per physician none Please no make-up, nail czech, hairspray, perfume, deodorant, or body powder the day of surgery.? No jewelry (including any body piercings) or valuables the day of surgery, leave them at home.? Please take a shower or bath the night before, or the morning of, surgery with an antibacterial soap.? Wear comfortable, loose fitting clothing.? Children are encouraged to wear pajamas. - Jewelry must be removed prior to entering the operating room.? Rings and piercings that are not removed may be cut off. - The hospital will not accept responsibility for valuables.? - Please leave all valuables, including medications, at home the day of surgery. If you are going home after surgery, a licensed racecar driver must drive you home.? - NO public transportation without another adult if you receive anesthesia. - We recommend that an adult stay with you for 24 hours following discharge. - We also recommend that you do not drive, make important decision, drink alcoholic beverages, or take any drugs that were not prescribed by your health care provider for at least 24 hours after your discharge time. Follow any additional instructions given to you from your surgeon. Telephone instructions given to ___patient and asked if any additional questions and then verbalized understanding. Patient advised to call surgeon office or pre surgery nurse liaison [phone] if any additional questions.
[2025-02-27 15:39] VITALS: BMI 23.6
[2025-03-09] VITALS (7 sets, daily range): BP systolic 95–145; BP diastolic 56–66; PULSE 57–69; RESP 13–20; TEMP 36.1–36.8; O2SAT 94–100
--- NOTE | ~2025-03-09 | XR_ITS ---
EXAMINATION: XR retrograde pyelogram RT DATE: 03/09/2025 11:18 INDICATION: Right-sided renal stone and hydronephrosis TECHNIQUE: 50 fluoroscopic images of the abdomen and pelvis were obtained during procedure performed by Dr. Noguera. Radiologist was not present for the imaging or procedure. The amount of fluoroscopy ti me used during this procedure was 1.1 minutes. Total DAP was 0.995 mGym^2. COMPARISON: None. FINDINGS: Initial image demonstrates a right internal ureteral stent with loops formed in the bladder and right renal pelvis. Postoperative changes in the pelvis with multiple surgical clips the left hemipelvis. Vertical line of sutures project over the right hemipelvis. There is a left-sided sacral nerve root s timulator in expected position. Right internal ureteral stent is subsequently removed with contrast i njection into the bladder. There is reflux of contrast into the distal right ureter. There is a stric ture at the distal most right ureter. There is at least mild right hydronephrosis. Subsequent images demonstrate advancement of a catheter into the right ureter with prior) maps to calyx of the right ki dney. Final images demonstrate placement of a right intrarenal stent with loops formed in the bladder and right renal pelvis. IMPRESSION: 1. Removal of a right internal ureteral stent and demonstration of a short stricture in the distal ri ght ureter. See procedure note for further detail. Reviewed, dictated and finalized at location B. IMPRESSION: 1. Removal of a right internal ureteral stent and demonstration of a short stri cture in the distal right ureter. See procedure note for further detail.
--- OUTSIDE RECORDS SUMMARY | 2025-03-09 00:42 | XMS_ITS | Referral Summary ---
Author Organization [facility] Address [address] [place] [address] Care Team Providers Care Bit And Shank Department Supervisor Name Role Phone Justin Avery MD Unavailable Benton Loyd MD Primary Care Provider [phone] Deng Fagan MD Unavailable Padmini Gonzalez MD Unavailable [phone] Nathaniel Merchant MD Unavailable Encounters Date Type Department Care Team Description 02/09/2025 Results Follow-Up [facility] Convenient Care at [address] [address] Jackson Childers NP 02/08/2025 11:26 AM CDT - 02/08/2025 11:59 PM CDT Hospital Encounter [address] [address] Cystitis with hematuria Discharge Disposition: Discharge to home or self care 02/08/2025 8:45 AM CDT Office Visit [facility] Convenient Care at [address] [id number] Radha Baca PA Cystitis with hematuria (Primary Dx) 12/13/2024 Telephone [facility] Surgery [facility] Floor 5 [place] [address] Shante Porter RMA Test Results 12/12/2024 1:45 PM COATER SLATE Lab [facility] [place] - Lab Collection [address] [facility] Floor 5 [place] [address] History of malignant neoplasm of rectum 12/12/2024 9:40 AM COATER SLATE Ancillary Procedure [facility] Medical Group Imaging at [address] [address] Acute cough 12/12/2024 9:30 AM COATER SLATE Office Visit [facility] Medical Group Convenient Care at [address] [address] Shante Mcclure NP Acute cough (Primary Dx); Acute non-recurrent maxillary sinusitis 12/12/2024 12:45 PM COATER SLATE Office Visit [facility] Surgery [facility] Floor 5 [place] [address] Justin Avery MD History of malignant neoplasm [...] (06/04/2022): Added automatically from request for surgery [id number] OAB (overactive bladder) 06/04/2022 Overview (06/04/2022): Added automatically from request for surgery [id number] 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 Overview (02/15/2020): Added automatically from request for surgery [id number] Ileostomy care 09/23/2017 History of malignant neoplasm [...] on file Legal Sex Male 4:34 PM COATER SLATE Gender Identity Not on file Sexual Orientation [...] (5' 9 ) 12/12/2024 12:0 8 PM COATER SLATE Body Mass Index 26.29 12/12/2024 12:08 PM COATER SLATE Plan of Treatment Not on file Medical Devices Implanted Type Area Plasma Specialist Device Identifier Shelf Expiration Date Model / Serial / Lot Medtronic Inc Generator Neurostimulator Bowel Bladder Recharge Free Interstim X [id number] - [id number] Implanted:Qty: 1 on 08/13/2022 by Padmini Gonzalez MD at [facility] Neurostimulator Med[employer]onic Inc 9 [id number] / / Medtronic Inc Interstim 28cm Quadripolar Mri Sheet Metal Worker Apprentice Neurostimulator [id number] - Sna - [id number] Implanted:Qty: 1 on 07/30/2022 by Padmini Gonzalez MD at [facility] Other - see comments N/A: Back Medtronic Inc 12/19/2023 [id number] / NA / [id number] Description:Lower back Implant pause performed interstim Medtronic Inc Interstim 100cm Percutaneous Electrode Insulated Kit [id number] - Sna - [id number] Implanted:Qty: 1 on 07/30/2022 by aPdmini Gonzalez MD at [facility] Other - see comments N/A: Back Med[employer]onic Inc 04/25/2024 [id number] / NA / [id number] Description:Lower back Implant pause performed interstim Procedures Procedure Name Priority Date/Time Associated Diagnosis Comments URINE CULTURE Routine 02/08/2025 11:26 AM CDT Cystitis with hematuria POCT URINALYSIS DIPSTICK Routine 02/08/2025 8:47 AM CDT Cystitis with hematuria CEA Routine 12/12/2024 1:24 PM COATER SLATE History of malignant neoplasm of rectum XR CHEST PA LATERAL 2 VIEWS Schedule SRAVANI, Read SRAVANI (Appt Today, Awaiting Results) 12/12/2024 9:52 AM COATER SLATE Acute cough POC INFLUENZA A/B, COVID-19 ANTIGEN Routine 12/12/2024 9:31 AM COATER SLATE Acute non-recurrent maxillary sinusitis POCT RAPID STREP Routine 12/12/2024 9:20 AM COATER SLATE Acute non-recurrent maxillary sinusitis from Last 3 Months Results * Urine culture Urine, clean voided (02/08/2025 11:26 AM CDT) Report Final Report: Less than 100,000 colonies/mL (clinically insignificant growth based on current clinical standards) Comment:Testing performed by : [facility], [address] [place]., [address] Organism (CLINICALLY INSIGNIFICANT GROWTH JUSTINE CARSON Urine, clean voided 02/08/2025 11:26 AM CDT 02/08/2025 6:04 PM CDT Narrative JUSTINE CARSON - 02/09/2025 7:50 PM CDT Testing performed by [facility] Microbiology Laboratory ([phone]) us Shante Mcclure NP LAB MICROBIOLOGY - GENERAL ORDERABLES Final Result JUSTINE CARSON [id number] Department [place] [address] * (ABNORMAL) POCT urinalysis dipstick (02/08/2025 8:47 AM CDT) Color, Urine, POC Dark Yellow Clarity, ur, POC Cloudy(A) Clear Glucose, ur, POC Negative Negative MG/DL Bilirubin, ur, POC Negative Negative, Small, Moderate, Large Ketones, ur, POC Negative Negative Specific [place], POC 1.025 1.003 - 1.030 Blood, ur, POC Large(A) Negative pH, ur, POC 5.5 5.0 - 8.0 Protein, ur, POC 300.(A) Negative Urobilinogen, urine, POC 0.2 0.2 - 1.0 mg/dL Nitrite, ur, POC Negative Negative Leukocytes, ur, POC Small(A) Negative Lot Number [id number] Urine 02/08/2025 8:47 AM CDT Shante Mcclure NP POINT OF CARE TEST ORDERAB LES Final Result * CEA (12/12/2024 1:24 PM COATER SLATE) CEA 0.8 <=5.0 ng/mL Comment: Interpretive Data: Reference Range: Non-Smokers: 0.0 5.0 ng/mL Smokers: 0.0 6.5 ng/mL The Juliet CEA assay procedure was used. Results from different manufacturers or methods may not be comparable. Serial testing should be performed using the same method. Current interpretive data was last revised 2022. Blood 12/12/2024 1:24 PM COATER SLATE 12/12/2024 2:00 PM COATER SLATE Justin Avery MD LAB BLOOD ORDERABLES Final R esult [facility]INE [facility] Department [place] [address] * XR Chest Pa Lateral 2 Views (12/12/2024 9:52 AM COATER SLATE) Anatomical Region Laterality Modality Body, Chest N/A Digital Radiogra phy 12/12/2024 1:02 PM COATER SLATE Narrative 12/12/2024 1:03 PM COATER SLATE EXAM DESCRIPTION: XR CHEST PA LATERAL 2 [...] Pro Marcus M.D. RB T: Report ID: [id number] Reading Location: [id number] Procedure Note Pro Marcus MD - 12/12/2024 [...] Pro Marcus M.D. RB T: Report ID: [id number] Reading Location: [id number] Shante Mcclure MINISTER IMG XR PROCEDURES Final Re sult * POC Influenza A/B, COVID-19 antigen (12/12/2024 9:31 AM COATER SLATE) Influenza A Ag, POC Negative Negative [facility] Influenza B Ag, POC Negative Negative [facility] COVID-19 Ag POC Presumptive Negative Presumptive Negative, Invalid [facility] Nasal 12/12/2024 9:31 AM COATER SLATE Shante Mcclure MINISTER POINT OF CARE TEST ORDERAB LES Final Result [facility] [address] [place] [address] * POCT rapid strep A (12/12/2024 9:20 AM COATER SLATE) Rapid Strep A, POC Negative Negative Swab 12/12/2024 9:20 AM COATER SLATE Shante Mcclure NP POINT OF CARE TEST ORDERAB LES Final Result from Last 3 Months Insurance [address] [address] [facility] MEDICARE [facility] MEDICARE [employer] MEDICARE Advance Directives For more information, please contact: [phone] Documents on File Type Date Recorded Patient Resource Management Planner Expl anation ADVANCE DIRECTIVE 10/02/2020 11:54 AM Marcos r of Health And Wellness Director-Medical * Full Code (Latest Code Status on File) Date Activated Date Inactivated Comments 08/13/2022 11:15 AM 08/14/2022 1:47 PM * Full Code Date Activated Date Inactivated Comments 11/11/2021 4:15 PM 11/11/2021 9:54 PM Care Teams Bit And Shank Department Supervisor Relationship Specialty Start Date End Date Benton Loyd MD [address] [facility] [place] [address] PCP - General Internal Medicine 08/24/20 Justin Avery MD Surgeon Colon and Rectal Surgery 10/18/19 Deng Fagan MD [address] [facility] [place] [address] Consulting Physician Urology 10/25/20 [place] [address] [place] [address] Consulting Physician Urology 11/09/22 Nathaniel Merchant MD 1 [facility] [place] [address] Consulting Physician Gastroenterology 11/09/22
--- OUTSIDE RECORDS SUMMARY | 2025-03-09 00:42 | XMS_ITS | Clinical Summary ---
Author Organization [facility] Address [address] [place] [address] Care Team Providers Care Caretaker Name Role Phone Justin Avery MD Unavailable [phone] Benton Loyd MD Primary Care Provider [phone] Deng Fagan MD Unavailable [phone] Padmini Gonzalez MD Unavailable [phone] Nathaniel Merchant MD Unavailable Allergies Active Allergy [...] (06/04/2022): Added automatically from request for surgery [id number] OAB (overactive bladder) 06/04/2022 Overview (06/04/2022): Added automatically from request for surgery [id number] 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 Overview (02/15/2020): Added automatically from request for surgery [id number] Ileostomy care 09/23/2017 History of malignant neoplasm of rectum 08/18/20 14 Crohn's disease of rectum 12/07/2009 Encounters Date Type Department Care Team Description 02/09/2025 Results Follow-Up [facility] Medical [facility] Convenient Care at [address] [address] Jackson Childers NP 02/08/2025 11:26 AM CDT - 02/08/2025 11:59 PM CDT Hospital Encounter [address] [address] Cystitis with hematuria Discharge Disposition: Discharge to home or self care 02/08/2025 8:45 AM CDT Office Visit [facility] Convenient Care at [address] [address] Radha Baca PA Cystitis with hematuria (Primary Dx) 12/13/2024 Telephone [facility] Surgery [address] [place] [address] 5 [place] [address] Shante Porter RMA Test Results 12/12/2024 1:45 PM FAST FOOD SHIFT LEAD Lab [facility] - Lab Collection [address] [place] [address] 5 [place] [address] History of malignant neoplasm of rectum 12/12/2024 12:45 PM FAST FOOD SHIFT LEAD Office Visit [facility] Surgery [address] [place] [address] 5 [place] [address] Justin Avery MD History of malignant neoplasm of rectum (Primary Dx); Stage 4 chronic kidney disease (HCC); 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); Crohn's disease of rectum without complication (HCC) 12/12/2024 9:40 AM FAST FOOD SHIFT LEAD Ancillary Procedure [facility] Imaging at [address] [address] Acute cough 12/12/2024 9:30 AM FAST FOOD SHIFT LEAD Office Visit [facility] Convenient Care at [address] [address] Shante Mcclure, JIE Acute cough [...] 02/24/2018 Surgical History Surgery Date Site/Laterality Comments SC REVISION PRIOR HYPOSPADIAS REPAIR DSJ&EXC RCNSTJ Surg Penis Repair Of Hypospadias Cripple - 03/11/05 (Added by TW Conv) SC CYSTOURETHROSCOPY W/INTERNAL URETHROTOMY Cystoscopy With Internal Urethrotomy, Direct Vision - 03/30/07 (Added by TW Conv) SC CYSTOURETHROSCOPY W/STEROID INJECTION STRICTURE Cystoscopy For Urethral Stricture With Steroid Injection - 03/30/07 (Added by TW Conv) SC NJX RETROGRADE URETHROCSTOGRAPY Bladder Injection Procedure For Retrograde Cystourethrogram - 03/30/07 (Added by TW Conv) SC COLECTOMY TOT ABDL W/PROCTECTOMY W/ILEOSTOMY Total Proctocolectomy - 07/21/06 (Added by TW Conv) SC APPENDECTOMY 11/30/1964 - 11/29/1965 Appendectomy - (Added by TW Conv) SC COLCT TOT ABDL W/O PRCTECT W/ILEOST/ILEOPXTS 11/30/2005 - 11/29/2006 Total Abdominal Colectomy With Ileostomy - (Added by TW Conv) ILEOSTOMY Ileostomy Care - (Added by TW Conv) SC NEPHRECTOMY W/PRTL URETERECTOMY W/OPEN RIB RESCJ 11/30/2011 [...] on file Legal Sex Male 4:34 PM FAST FOOD SHIFT LEAD Gender Identity Not on file Sexual Orientation [...] (5' 9 ) 12/12/2024 12:0 8 PM FAST FOOD SHIFT LEAD Body Mass Index 26.29 12/12/2024 12:08 PM FAST FOOD SHIFT LEAD Plan of Treatment Health Maintenance Due Date [...] history exists Medical Devices Implanted Type Area Rust Proofer Device Identifier Shelf Expiration Date Model / Serial / Lot Medtronic Inc Generator Neurostimulator Bowel Bladder Recharge Free Interstim X [id number] - [id number] Implanted:Qty: 1 on 08/13/2022 by Padmini Gonzalez MD at [facility] Neurostimulator Med[employer] Inc 9 [id number] / / Med[employer]onic Inc Interstim 28cm Quadripolar Mri Hydraulic Auto Jack Mechanic Neurostimulator [id number] - Sna - [id number] Implanted:Qty: 1 on 07/30/2022 by Padmini Gonzalez MD at [facility] Other - see comments N/A: Back Medtronic Inc 12/19/2023 [id number] / NA / [id number] Description:Lower back Implant pause performed interstim Medtronic Inc Interstim 100cm Percutaneous Electrode Insulated Kit [id number] - Sna - [id number] Implanted:Qty: 1 on 07/30/2022 by Padmini Gonzalez MD at [facility] Other - see comments N/A: Back Med[employer]onic Inc 04/25/2024 [id number] / NA / [id number] Description:Lower back Implant pause performed interstim Procedures Procedure Name Priority Date/Time Associated Diagnosis Comments URINE CULTURE Routine 02/08/2025 11:26 AM CDT Cystitis with hematuria POCT URINALYSIS DIPSTICK Routine 02/08/2025 8:47 AM CDT Cystitis with hematuria CEA Routine 12/12/2024 1:24 PM FAST FOOD SHIFT LEAD History of malignant neoplasm of rectum XR CHEST PA LATERAL 2 VIEWS Schedule SRAVANI, Read SRAVANI (Appt Today, Awaiting Results) 12/12/2024 9:52 AM FAST FOOD SHIFT LEAD Acute cough POC INFLUENZA A/B, COVID-19 ANTIGEN Routine 12/12/2024 9:31 AM FAST FOOD SHIFT LEAD Acute non-recurrent maxillary sinusitis POCT RAPID STREP Routine 12/12/2024 9:20 AM FAST FOOD SHIFT LEAD Acute non-recurrent maxillary sinusitis from Last 3 Months Results * Urine culture Urine, clean voided (02/08/2025 11:26 AM CDT) Report Final Report: Less than 100,000 colonies/mL (clinically insignificant growth based on current clinical standards) Comment:Testing performed by : [facility], [address] [place]., [address] Organism (CLINICALLY INSIGNIFICANT GROWTH [facility] Urine, clean voided 02/08/2025 11:26 AM CDT 02/08/2025 6:04 PM CDT Narrative JUSTINE - 02/09/2025 7:50 PM CDT Testing performed by [facility] Microbiology Laboratory ([phone]) Shante Mcclure NP LAB MICROBIOLOGY - GENERAL ORDERABLES Final Result [facility] [address] Department [place] [address] * (ABNORMAL) POCT urinalysis dipstick (02/08/2025 8:47 AM CDT) Color, Urine, POC Dark Yellow Clarity, ur, POC Cloudy(A) Clear Glucose, ur, POC Negative Negative MG/DL Bilirubin, ur, POC Negative Negative, Small, Moderate, Large Ketones, ur, POC Negative Negative Specific [place], POC 1.025 1.003 - 1.030 Blood, ur, POC Large(A) Negative pH, ur, POC 5.5 5.0 - 8.0 Protein, ur, POC 300.(A) Negative Urobilinogen, urine, POC 0.2 0.2 - 1.0 mg/dL Nitrite, ur, POC Negative Negative Leukocytes, ur, POC Small(A) Negative Lot Number [id number] Urine 02/08/2025 8:47 AM CDT us Shante Mcclure NP POINT OF CARE TEST ORDERAB LES Final Result * CEA (12/12/2024 1:24 PM FAST FOOD SHIFT LEAD) CEA 0.8 <=5.0 ng/mL Comment: Interpretive Data: Reference Range: Non-Smokers: 0.0 5.0 ng/mL Smokers: 0.0 6.5 ng/mL The Juliet CEA assay procedure was used. Results from different manufacturers or methods may not be comparable. Serial testing should be performed using the same method. Current interpretive data was last revised 2022. Blood 12/12/2024 1:24 PM FAST FOOD SHIFT LEAD 12/12/2024 2:00 PM FAST FOOD SHIFT LEAD Justin Avery MD LAB BLOOD ORDERABLES Final R esult [facility] Department [place] [address] * XR Chest Pa Lateral 2 Views (12/12/2024 9:52 AM FAST FOOD SHIFT LEAD) Anatomical Region Laterality Modality Body, Chest N/A Digital Radiogra phy 12/12/2024 1:02 PM FAST FOOD SHIFT LEAD Narrative 12/12/2024 1:03 PM FAST FOOD SHIFT LEAD EXAM DESCRIPTION: XR CHEST PA LATERAL 2 [...] Pro Marcus M.D. RB T: Report ID: [id number] Reading Location: [id number] Procedure Note Pro Marcus MD - 12/12/2024 [...] Pro Marcus M.D. RB T: Report ID: [id number] Reading Location: [place] [address] Shante Mcclure DIRECTOR PATIENT IMG XR PROCEDURES Final Re sult * POC Influenza A/B, COVID-19 antigen (12/12/2024 9:31 AM FAST FOOD SHIFT LEAD) Influenza A Ag, POC Negative Negative [facility] Influenza B Ag, POC Negative Negative [facility] COVID-19 Ag POC Presumptive Negative Presumptive Negative, Invalid [facility] Nasal 12/12/2024 9:31 AM FAST FOOD SHIFT LEAD Shante Mcclure DIRECTOR PATIENT POINT OF CARE TEST ORDERAB LES Final Result [facility] [address] [place] [address] * POCT rapid strep A (12/12/2024 9:20 AM FAST FOOD SHIFT LEAD) Rapid Strep A, POC Negative Negative Swab 12/12/2024 9:20 AM FAST FOOD SHIFT LEAD us Shante Mcclure NP POINT OF CARE TEST ORDERAB LES Final Result from Last 3 Months Insurance T MEDICARE T MEDICARE T MEDICARE Advance Directives For more information, please contact: [phone] Documents on File Type Date Recorded Patient Acquisition Associate Expl anation ADVANCE DIRECTIVE 10/02/2020 11:54 AM Marcos r of Manager Inventory Control-Medical * Full Code (Latest Code Status on File) Date Activated Date Inactivated Comments 08/13/2022 11:15 AM 08/14/2022 1:47 PM * Full Code Date Activated Date Inactivated Comments 11/11/2021 4:15 PM 11/11/2021 9:54 PM Care Teams Caretaker Relationship Specialty Start Date End Date Benton Loyd MD [address] [facility] [place], [place] [address] PCP - General Internal Medicine 08/24/20 Justin Avery MD Surgeon Colon and Rectal Surgery 10/18/19 Deng Fagan MD [address] [facility] [place], [place] [address] Consulting Physician Urology 10/25/20 [place] [address] [place] [address] Consulting Physician Urology 11/09/22 Nathaniel Merchant MD [address] [facility] [place] [address] Consulting Physician Gastroenterology 11/09/22
--- OUTSIDE RECORDS SUMMARY | 2025-03-09 00:42 | XMS_ITS | Encounter Summary ---
Author Organization [facility] Healthcare Address [address] [place] [address] Care Team Providers Care Otr Refrigerated Cdl Truck Driver Name Role Phone Justin Avery MD Unavailable [phone] Benton Loyd MD Primary Care Provider [phone] Deng Fagan MD Unavailable [phone] Padmini Gonzalez MD Unavailable [phone] Nathaniel Merchant MD Unavailable [phone] Encounter Details Date Type Department Care Team (Late st Contact Info) Description 02/09/2025 Results Follow-Up [facility] Medical Group Convenient Care at [address] [address] Jackson Childers NP [address] [place] [address] [address] [place] [address] Social History Tobacco Use Types [...] on file Legal Sex Male 4:34 PM PAEDIATRIC THORACIC PHYSICIAN Gender Identity Not on file Sexual Orientation [...] on filedocumented in this encounter Care Teams Otr Refrigerated Cdl Truck Driver Relationship Specialty Start Date End Date Benton Loyd MD [address] [place], [place] [address] PCP - General Internal Medicine 08/24/20 Justin Avery MD Surgeon Colon and Rectal Surgery 10/18/19 Deng Fagan MD [address] [place], [place] [address] Consulting Physician Urology 10/25/20 Padmini Gonzalez MD [address] [address] Consulting Physician Urology 11/09/22 Nathaniel Merchant MD 1 [facility] [place] [address] Consulting Physician Gastroenterology 11/09/22 documented as of this encounter
--- OUTSIDE RECORDS SUMMARY | 2025-03-09 00:42 | XMS_ITS | Encounter Summary ---
Author Organization [facility] Address [address] [place] [address] Phone Care Team Providers Care Jacquard Loom Weaver Name Role Phone Justin Avery MD Unavailable [phone] Benton Loyd MD Primary Care Provider [phone] Deng Fagan MD Unavailable [phone] Padmini Gonzalez MD Unavailable [phone] Nathaniel Merchant MD Unavailable [phone] Encounter Details Date Type Department Care Team (Late st Contact Info) Description 10/01/2022 Telephone [facility] Department of Surgery, Section of Colon and Rectal Surgery [address] [facility] 12th Floor, [place] [address] Sheyla Rhoades Social History Tobacco [...] on file Legal Sex Male 4:34 PM SIEBEL DEVELOPER Gender Identity Not on file Sexual Orientation Not on file documented as of this encounter Plan of Treatment Not on file documented as of this encounter Visit Diagnoses Not on filedocumented in this encounter Additional Health Concerns Infection Onset Date Last Indicated Resolved Time COVID: Suspected 12/12/2024 12/12/2024 12/12/2024 9:32 AM SIEBEL DEVELOPER documented as of this encounter Care Teams Jacquard Loom Weaver Relationship Specialty Start Date End Date Benton Loyd MD [address] [facility] [address], [place] [address] PCP - General Internal Medicine 08/24/20 Justin Avery MD Surgeon Colon and Rectal Surgery 10/18/19 Deng Fagan MD [address] [facility] [address], [place] [address] Consulting Physician Urology 10/25/20 [place] [address] [place] [address] Consulting Physician Urology 11/09/22 Nathaniel Merchant MD 1 [facility] [place] [address] Consulting Physician Gastroenterology 11/09/22 documented as of this encounter
--- OUTSIDE RECORDS SUMMARY | 2025-03-09 00:42 | XMS_ITS | Clinical Summary ---
Author Organization [facility] Address [address] [place] [address] Care Team Providers Care Tariff Clerk Name Role Phone Unavailable Primary Care Provider [...] Vaccine ( - 2023-2 5 season) 2024 RSV Immunization or 60+ Years (1 [...]
--- NOTE | 2025-03-09 06:19 | WPDHPUPDATE1 ---
History and Physical Update Update Date/Time: 03/09/25 06:19 History and Physical has been reviewed, including an updated exam of the patient. There are NO changes in the patient's condition. Risks, benefits, and alternatives have been discussed and questions answered. Patient agrees to proceed with procedure.
[2025-03-09] MEDS: LACTATED RINGERS 1,000 ML 30 ML IV CONT (08:45)
[2025-03-09 08:54] LABS: Glucose Point of Care 99 mg/dl (65-105)
--- NOTE | 2025-03-09 09:25 | P.PNAN_ITS ---
Anes - Initial Pre Proc Eval Procedure: Operation Date: 03/09/25 10:15 Proposed Procedures p Cystoscopy, Right Retrograde Pyelogram, Cystogram, Possible Ureteroscopy, Possible Right Stent Exchange - James Noguera MD Date/Time: 03/09/25 09:25 Surgeon: James Noguera MD Pre Op Diagnosis: Hydronephrosis, Right Solitary Kidney Patient Data Age: 74 Gender: M Height: 1.75 m Weight: 75.6 kg Last Vital Signs Temp 98.3 F 03/09/25 08:15 Pulse 66 03/09/25 08:15 Resp 16 03/09/25 08:15 BP 124/66 03/09/25 08:15 Pulse Ox 100 03/09/25 08:15 O2 Del Method Room Air 03/09/25 08:15 Allergies Allergy/AdvReac Type Severity Reaction Status Date / Time No Known Allergies Allergy Verified 03/09/25 08:35 Home Medications ?Medication ?Instructions ?Recorded ?Confirmed ?Type amlodipine 10 mg tablet 10 mg PO DAILY 11/28/19 03/09/25 History atorvastatin 20 mg tablet 20 mg PO DAILY 11/28/19 03/09/25 History irbesartan 75 mg tablet 75 mg PO DAILY 11/28/19 03/09/25 History magnesium chloride 71.5 mg 71.5 mg PO DAILY 11/28/19 03/09/25 History (magnesium chloride) tablet,delayed release (Nu-Mag) omeprazole 20 mg capsule,delayed 20 mg PO DAILY 11/28/19 03/09/25 History release ropinirole 3 mg tablet 3 mg PO HS 11/28/19 03/09/25 History sitagliptin phosphate 50 mg tablet 50 mg PO DAILY 11/28/19 03/09/25 History (Januvia) cholecalciferol (vitamin D3) 25 25 mcg PO DAILY 02/18/25 03/09/25 History mcg (1,000 unit) capsule cyanocobalamin (vitamin B-12) 2,000 mcg PO DAILY 02/18/25 03/09/25 History 1,000 mcg capsule loperamide 2 mg capsule 4 mg PO BID 02/27/25 03/09/25 History (Anti-Diarrheal (loperamide)) Laboratory Tests 03/09/25 08:50 POC Capillary Glucose 99 mg/dl (65-105) Patient hx anesthesia problems: none Family hx anesthesia problems: none Results Review: All pre-operative results and documents have been reviewed as part of the pre- operative evaluation. 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 Code status: Full code. Smoking status: Never smoker Alcohol intake: current Drinks per week: 2 Substance use: never Substance use type: does not use Do You Feel Safe in your Home?: Yes Lack of Transportation: No Lack of Food: Never True Current Housing: I Have Housing Concerned About Future Housing: No Difficulty Paying Gas/Electric Bills: No Difficulty Paying for Meds: No Currently Unemployed: No Education: Don't Know Difficulty w/ Childcare or Family Care: No Living arrangements: with family Additional living arrangements comments: Lives with spouse in [place]. 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: No Anes - Eval Final PreProcedure Day of Procedure 03/09/25 09:25 Patient weight: normal Lungs: normal air movement Airway: Mallampati scale class II Neurological: alert and oriented Last oral intake: >/= 8 hours ASA classification: III Emergent: no Anesthetic plan: proceed Anesthesia type and monitoring: general LMA and standard monitoring Results Review: All pre-operative results and documents have been reviewed as part of the pre- operative evaluation. HTN, hyperlipidemia, CKD stage 4, Crohns by hx, now w perm ileostomy. EKG NSR. Informed Consent: The patient's anesthetic plan and its attendant risks and benefits were di scussed with the patient/family/POA. Questions were solicited and answers provided to the satisfaction of the patient/family/POA.
[2025-03-09] MEDS: ceFAZolin 2 GM/D5W 50 ML 2 GM/50 ML BAG IVPB (10:29)
[2025-03-09] MEDS: LIDOCAINE 2% GEL UROJET 10 ML PKG MUCOUS MEM (10:52)
--- NOTE | 2025-03-09 11:29 | P.OP_ITS ---
Procedure Note - Detailed Date of Procedure 03/09/25 Pre-op Diagnosis Hydronephrosis, Right Solitary Kidney Post-op Diagnosis Other (Right vesicoureteral reflux) Procedure Performed 1. Intraoperative cystogram 2. Right ureteroscopy 3. Right ureteral stent removal Surgeon James Noguera MD Anesthesia General Description of Procedure Patient is brought to the operative suite was prepped draped in routine sterile fashion while in dorsal lithotomy position after the uneventful induction of a general anesthetic. Cystoscopy was undertaken with a 19F rigid cystoscope in the indwelling stent is removed with ease. A 16 F Uriarte catheter was placed an intraoperative cystogram was obtained. With passive filling adjust 150 cc there is low-pressure reflux into the right ureter and collecting system. There was an area of narrowing in the distal right ureter just below the right iliac vessels. This narrowing is proximally 2 cm in length. With bladder drainage the entire right collecting system and ureter drained completely and promptly. In light of this prompt drainage and obvious vesicoureteral reflux I was reluctant to place the right ureteral stent. I did dilate the distal ureter over a 0.035 in glidewire with an 8 F 10 F dilator. I did flexible ureteroscopy was careful to inspect the entire collecting system and ureter. There was no mucosal hyperemia throughout in no apparent ureteral pathology at that site of slight narrowing. Again, given the explanation for hydronephrosis with ve sicoureteral reflux I opted not to replace the ureteral stent will, obviously, keep a very close eye on his renal function. I plan to see him back within 24 hours to repeat a BMP. Drains No Pathology None sent
[2025-03-09 11:41] LABS: Anion Gap 14 mmol/L (4-12); Blood Urea Nitrogen 47 mg/dL (9-20); Calcium 8.9 mg/dL (8.4-10.2); Carbon Dioxide 14 mmol/L (22-30); Chloride 110 mmol/L (98-107); Estimated CRCL calculation 20 ml/min; Estimated Glomerular Filt Rate 20; Glucose 101 mg/dL (65-110); Potassium 4.7 mmol/L (3.4-5.0); Sodium 138 mmol/L (137-145)
[2025-03-09 11:45] LABS: Glucose Point of Care 91 mg/dl (65-105)
--- NOTE | 2025-03-09 12:54 | SUR.PHASEII ---
1245: patient ready for dc. family is assisting patient with getting dressed.
== END 2025-03-09 13:02 | disposition home or self-care (01) ==
PROVIDERS: Visit Provider Urology
PROC: (CPT 52352; principal; 2025-03-09 10:15)
DX: N13.70 Vesicoureteral-reflux, unspecified (principal); N13.30 Unspecified hydronephrosis; Q60.0 Renal agenesis, unilateral; I12.9 Hypertensive chronic kidney disease with stage 1 through stage 4 chronic kidney disease, or unspecified chronic kidney disease; N18.9 Chronic kidney disease, unspecified; K50.90 Crohn's disease, unspecified, without complications; E78.5 Hyperlipidemia, unspecified; Z85.038 Personal history of other malignant neoplasm of large intestine; Z92.21 Personal history of antineoplastic chemotherapy; Z92.3 Personal history of irradiation; Z90.49 Acquired absence of other specified parts of digestive tract
CPT/HCPCS: 52310; 36415; 74420; 80048; 82948; C1758; C1769; J0690; J1100; J2003; J2371; J2405; J2704; J3010; J7120; Q9966

== ENCOUNTER 2025-03-10 07:56 | Outpatient (CLI) | payer MEDICARE, SELFPAY ==
--- OUTSIDE RECORDS SUMMARY | 2025-03-10 08:01 | XMS_ITS | Encounter Summary ---
Author Organization [facility] Healthcare Address [address] [place] [address] Care Team Providers Care Vegetable Loader Machine Operator Name Role Phone Justin Avery MD Unavailable [phone] Benton Loyd MD Primary Care Provider [phone] Deng Fagan MD Unavailable [phone] Padmini Gonzalez MD Unavailable [phone] Nathaniel Merchant MD Unavailable [phone] Encounter Details Date Type Department Care Team (Late st Contact Info) Description 02/09/2025 Results Follow-Up [facility] Medical Group Convenient Care at [address] [address] Jackson Childers NP [address] [place] [address] [address] [place] [address] Social History Tobacco Use Types [...] on file Legal 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 Gender Identity Not on file Sexual Orientation [...] on filedocumented in this encounter Care Teams Vegetable Loader Machine Operator Relationship Specialty Start Date End Date Benton Loyd MD [address] [place], [place] [address] PCP - General Internal Medicine 08/24/20 Justin Avery MD Surgeon Colon and Rectal Surgery 10/18/19 Deng Fagan MD [address], [place] [address] Consulting Physician Urology 10/25/20 Padmini Gonzalez MD [address] [address] Consulting Physician Urology 11/09/22 Nathaniel Merchant MD [address] [facility] [place] [address] Consulting Physician Gastroenterology 11/09/22 documented as of this encounter
--- OUTSIDE RECORDS SUMMARY | 2025-03-10 08:01 | XMS_ITS | Referral Summary ---
Author Organization [facility] Address [address] [place] [address] Care Team Providers Care Family And Consumer Sciences Teacher Name Role Phone Justin Avery MD Unavailable Benton Loyd MD Primary Care Provider [phone] Deng Fagan MD Unavailable Padmini Gonzalez MD Unavailable [phone] Nathaniel Merchant MD Unavailable Encounters Date Type Department Care Team Description 02/09/2025 Results Follow-Up [facility] Medical Group Convenient Care at [address] [address] Jackson Childers NP 02/08/2025 11:26 AM CDT - 02/08/2025 11:59 PM CDT Hospital Encounter [address] [address] Cystitis with hematuria Discharge Disposition: Discharge to home or self care 02/08/2025 8:45 AM CDT Office Visit [facility] Medical Group Convenient Care at [address] [phone] Radha Baca PA Cystitis with hematuria (Primary Dx) 12/13/2024 Telephone [facility] Surgery [facility] Floor [address] [place] [address] Shante Porter RMA Test Results 12/12/2024 1:45 PM LIFE SCIENCE TECHNICIAN Lab [facility] [place] - Lab Collection [address] [facility] [address] [place] [address] History of malignant neoplasm of rectum 12/12/2024 9:40 AM LIFE SCIENCE TECHNICIAN Ancillary Procedure [facility] Medical Group Imaging at [address] [address] Acute cough 12/12/2024 9:30 AM LIFE SCIENCE TECHNICIAN Office Visit [facility] Medical Group Convenient Care at [address] [address] Shante Mcclure NP Acute cough (Primary Dx); Acute non-recurrent maxillary sinusitis 12/12/2024 12:45 PM LIFE SCIENCE TECHNICIAN Office Visit [facility] Surgery [facility] Floor [address] [place] [id number] Justin Avery MD History of malignant neoplasm [...] mg total) by mouth every morning 3 8 Active atorvastatin (LIPITOR) 20 mg tabletIndicati ons:hyperlipid emia Take 1 tablet (20 mg total) by mouth every morning 2 8 Active loperamide (IMODIUM) 2 mg capsuleIndicat ions:diarrhea, ileostomy Take 2 capsules (4 mg total) by mouth 2 (two) times a day 7 Active omeprazole (PriLOSEC) 20 mg capsuleIndicat ions:Stress Ulcer Prophylaxis,Tr eatment of Non-Bleeding Gastric Disorder,gerd Take 1 capsule (20 mg total) by mouth every morning 2 8 Active rOPINIRole (REQUIP) 3 mg tabletIndicati ons:Restless Legs Syndrome Take 1 tablet (3 mg total) by mouth nightly 0 Active JANUVIA 50 mg tabletIndicati ons:type 2 diabetes mellitus Take 1 tablet (50 mg total) by mouth every morning 1 8 Active cyanocobalamin (Vitamin B-12) 500 mcg tabletIndicati ons:Prevention of Vitamin B12 Deficiency Take 2 tablets (1,000 mcg total) by mouth every morning Active cholecalcifero l (VITAMIN D-3) 2,000 unit capsuleIndicat ions:Vitamin D Deficiency Take 0.5 capsules (1,000 Units total) by mouth every morning 0 Active NU-MAG 71.5 mg tablet,delayed release (DR/EC)Indicat ions:hypomagne semia Take 1 tablet by mouth every morning 0 9 Active irbesartan (AVAPRO) 75 mg tabletIndicati ons:hypertensi on Take 1 tablet (75 mg total) by mouth every morning 9 Active acetaminophen (TYLENOL) 500 mg tabletIndicati ons:Pain Take 2 tablets (1,000 mg total) by mouth every 6 (six) hours as needed for pain Active oxyCODONE (ROXICODONE) 5 mg immediate release tabletIndicati ons:Pain Take 1 tablet (5 mg total) by mouth every 4 (four) hours as needed for pain (second line) for up to 5 doses 5 tablet 2 Active senna (SENOKOT) 8.6 mg tablet Take 1 tablet by mouth daily as needed for constipation 30 tablet 2 Active Additional Information Patient not taking.Reported on 11/27/2024 mupirocin (BACTROBAN) 2 % ointmentIndica tions:Minor Bacterial Skin Infections Apply topically 3 (three) times a day 22 g 2 Active sulfamethoxazo le-trimethopri m (BACTRIM DS) 800-160 mg per tablet Take 1 tablet by mouth 2 (two) times a day for 5 days 10 tablet 5 02/14/20 25 Active Problems Problem Noted Date Diagnosed Date Stage 4 chronic kidney disease 01/01/2025 Urge urinary incontinence 06/04/2022 Overview (06/04/2022): Added automatically from request for surgery [id number] OAB (overactive bladder) 06/04/2022 Overview (06/04/2022): Added automatically from request for surgery [id number] 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 Overview (02/15/2020): Added automatically from request for surgery [id number] Ileostomy care 09/23/2017 History of malignant neoplasm [...] on file Legal Sex Male 4:34 PM LIFE SCIENCE TECHNICIAN Gender Identity Not on file Sexual Orientation [...] (5' 9 ) 12/12/2024 12:0 8 PM LIFE SCIENCE TECHNICIAN Body Mass Index 26.29 12/12/2024 12:08 PM LIFE SCIENCE TECHNICIAN Plan of Treatment Not on file Medical Devices Implanted Type Area Customer Experience Analyst Device Identifier Shelf Expiration Date Model / Serial / Lot [employer] Generator Neurostimulator Bowel Bladder Recharge Free Interstim X [id number] - [id number] Implanted:Qty: 1 on 08/13/2022 by Padmnii Gonzalez MD at [facility] Neurostimulator [employer] 9 [id number] / / [employer] Interstim 28cm Quadripolar Mri President [employer] Neurostimulator [id number] - Sna - [id number] Implanted:Qty: 1 on 07/30/2022 by Padmini Gonzalez MD at [facility] Other - see comments N/A: Back [employer] Inc 12/19/2023 [id number] / NA / [id number] Description:Lower back Implant pause performed interstim [employer] Interstim 100cm Percutaneous Electrode Insulated Kit [id number] - Sna - [id number] Implanted:Qty: 1 on 07/30/2022 by Padmini Gonzalez MD at [facility] Other - see comments N/A: Back [employer] 04/25/2024 [id number] / NA / [id number] Description:Lower back Implant pause performed interstim Procedures Procedure Name Priority Date/Time Associated Diagnosis Comments URINE CULTURE Routine 02/08/2025 11:26 AM CDT Cystitis with hematuria POCT URINALYSIS DIPSTICK Routine 02/08/2025 8:47 AM CDT Cystitis with hematuria CEA Routine 12/12/2024 1:24 PM LIFE SCIENCE TECHNICIAN History of malignant neoplasm of rectum XR CHEST PA LATERAL 2 VIEWS Schedule SRAVANI, Read SRAVANI (Appt Today, Awaiting Results) 12/12/2024 9:52 AM LIFE SCIENCE TECHNICIAN Acute cough POC INFLUENZA A/B, COVID-19 ANTIGEN Routine 12/12/2024 9:31 AM LIFE SCIENCE TECHNICIAN Acute non-recurrent maxillary sinusitis POCT RAPID STREP Routine 12/12/2024 9:20 AM LIFE SCIENCE TECHNICIAN Acute non-recurrent maxillary sinusitis from Last 3 Months Results * Urine culture Urine, clean voided (02/08/2025 11:26 AM CDT) Report Final Report: Less than 100,000 colonies/mL (clinically insignificant growth based on current clinical standards) Comment:Testing performed by : [facility], [address] [place]., [address] Organism (CLINICALLY INSIGNIFICANT GROWTH JUSTINE Urine, clean voided 02/08/2025 11:26 AM CDT 02/08/2025 6:04 PM CDT Narrative JUSTINE CARSON - 02/09/2025 7:50 PM CDT Testing performed by [facility] Microbiology Laboratory ([phone]) Shante Mcclure NP LAB MICROBIOLOGY - GENERAL ORDERABLES Final Result JUSTINE [id number] Department [place] [address] * (ABNORMAL) POCT urinalysis dipstick (02/08/2025 8:47 AM CDT) Color, Urine, POC Dark Yellow Clarity, ur, POC Cloudy(A) Clear Glucose, ur, POC Negative Negative MG/DL Bilirubin, ur, POC Negative Negative, Small, Moderate, Large Ketones, ur, POC Negative Negative Specific [place], POC 1.025 1.003 - 1.030 Blood, ur, POC Large(A) Negative pH, ur, POC 5.5 5.0 - 8.0 Protein, ur, POC 300.(A) Negative Urobilinogen, urine, POC 0.2 0.2 - 1.0 mg/dL Nitrite, ur, POC Negative Negative Leukocytes, ur, POC Small(A) Negative Lot Number [id number] Urine 02/08/2025 8:47 AM CDT Shante Mcclure NP POINT OF CARE TEST ORDERAB LES Final Result * CEA (12/12/2024 1:24 PM LIFE SCIENCE TECHNICIAN) CEA 0.8 <=5.0 ng/mL Comment: Interpretive Data: Reference Range: Non-Smokers: 0.0 5.0 ng/mL Smokers: 0.0 6.5 ng/mL The Juliet CEA assay procedure was used. Results from different manufacturers or methods may not be comparable. Serial testing should be performed using the same method. Current interpretive data was last revised 2022. Blood 12/12/2024 1:24 PM LIFE SCIENCE TECHNICIAN 12/12/2024 2:00 PM LIFE SCIENCE TECHNICIAN Justin Avery MD LAB BLOOD ORDERABLES Final R esult [facility] Department [place] [address] * XR Chest Pa Lateral 2 Views (12/12/2024 9:52 AM LIFE SCIENCE TECHNICIAN) Anatomical Region Laterality Modality Body, Chest N/A Digital Radiogra phy 12/12/2024 1:02 PM LIFE SCIENCE TECHNICIAN Narrative 12/12/2024 1:03 PM LIFE SCIENCE TECHNICIAN EXAM DESCRIPTION: XR CHEST PA LATERAL 2 [...] Pro Marcus M.D. RB T: Report ID: [id number] Reading Location: [id number] Procedure Note Pro Marcus MD - 12/12/2024 [...] Pro Marcus M.D. RB T: Report ID: [id number] Reading Location: [place] [address] Shante Mcclure CRIMPING MACHINE OPERATOR IMG XR PROCEDURES Final Re sult * POC Influenza A/B, COVID-19 antigen (12/12/2024 9:31 AM LIFE SCIENCE TECHNICIAN) Influenza A Ag, POC Negative Negative [facility] Influenza B Ag, POC Negative Negative [facility] COVID-19 Ag POC Presumptive Negative Presumptive Negative, Invalid [facility] Nasal 12/12/2024 9:31 AM LIFE SCIENCE TECHNICIAN Shante Mcclure CRIMPING MACHINE OPERATOR POINT OF CARE TEST ORDERAB LES Final Result [facility] EDW [address] [place] [address] * POCT rapid strep A (12/12/2024 9:20 AM LIFE SCIENCE TECHNICIAN) Rapid Strep A, POC Negative Negative Swab 12/12/2024 9:20 AM LIFE SCIENCE TECHNICIAN Shante Mcclure CRIMPING MACHINE OPERATOR POINT OF CARE TEST ORDERAB LES Final Result from Last 3 Months Insurance [facility] MEDICARE [facility] MEDICARE [employer] MEDICARE Advance Directives For more information, please contact: [phone] Documents on File Type Date Recorded Patient Certified Appliance Service Technician Expl anation ADVANCE DIRECTIVE 10/02/2020 11:54 AM Marcos r of [employer] * Full Code (Latest Code Status on File) Date Activated Date Inactivated Comments 08/13/2022 11:15 AM 08/14/2022 1:47 PM * Full Code Date Activated Date Inactivated Comments 11/11/2021 4:15 PM 11/11/2021 9:54 PM Care Teams Family And Consumer Sciences Teacher Relationship Specialty Start Date End Date Benton Loyd MD [address] [facility] [address] [place] [address] PCP - General Internal Medicine 08/24/20 Justin Avery MD Surgeon Colon and Rectal Surgery 10/18/19 Deng Fagan MD [address] [facility] [address] [place] [address] Consulting Physician Urology 10/25/20 [place] [address] [place] [address] Consulting Physician Urology 11/09/22 Nathaniel Merchant MD [address] [facility] [place] [address] Consulting Physician Gastroenterology 11/09/22
--- OUTSIDE RECORDS SUMMARY | 2025-03-10 08:01 | XMS_ITS | Clinical Summary ---
Author Organization [facility] Address [address] [place] [address] Care Team Providers Care Line Installer Trolley Name Role Phone Unavailable Primary Care Provider [...]
--- OUTSIDE RECORDS SUMMARY | 2025-03-10 08:01 | XMS_ITS | Clinical Summary ---
Author Organization [facility] Address [address] [place] [address] Care Team Providers Care Hvac R Instructor Name Role Phone Justin Avery MD Unavailable [phone] Benton Loyd MD Primary Care Provider [phone] Deng Fagan MD Unavailable Padmini Gonzalez MD Unavailable [phone] Nathaniel Merchant MD Unavailable Allergies Active Allergy [...] (06/04/2022): Added automatically from request for surgery [id number] OAB (overactive bladder) 06/04/2022 Overview (06/04/2022): Added automatically from request for surgery [id number] 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 Overview (02/15/2020): Added automatically from request for surgery [id number] Ileostomy care 09/23/2017 History of malignant neoplasm of rectum 08/18/20 14 Crohn's disease of rectum 12/07/2009 Encounters Date Type Department Care Team Description 02/09/2025 Results Follow-Up [facility] at [address] [address] Jackson Childers NP 02/08/2025 11:26 AM CDT - 02/08/2025 11:59 PM CDT Hospital Encounter [address] [address] Cystitis with hematuria Discharge Disposition: Discharge to home or self care 02/08/2025 8:45 AM CDT Office Visit [facility] at [address] [address] Radha Baca PA Cystitis with hematuria (Primary Dx) 12/13/2024 Telephone [facility] Surgery [address] [place] [phone] Shante Porter RMA Test Results 12/12/2024 1:45 PM PEDIATRIC ONCOLOGIST Lab [facility] - Lab Collection [address] [place] [address] 5 [place] [address] History of malignant neoplasm of rectum 12/12/2024 12:45 PM PEDIATRIC ONCOLOGIST Office Visit [facility] Surgery [address] [place] [phone] Justin Avery MD History of malignant neoplasm of rectum (Primary Dx); Stage 4 chronic kidney disease (HCC); 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); Crohn's disease of rectum without complication (HCC) 12/12/2024 9:40 AM PEDIATRIC ONCOLOGIST Ancillary Procedure [facility] Medical [facility] Imaging at [address] [address] Acute cough 12/12/2024 9:30 AM PEDIATRIC ONCOLOGIST Office Visit [facility] Medical [facility]ient [facility] at [address] [address] Shante Mcclure NP Acute cough [...] 02/24/2018 Surgical History Surgery Date Site/Laterality Comments RI REVISION PRIOR HYPOSPADIAS REPAIR DSJ&EXC RCNSTJ Surg Penis Repair Of Hypospadias Cripple - 03/11/05 (Added by TW Conv) RI CYSTOURETHROSCOPY W/INTERNAL URETHROTOMY Cystoscopy With Internal Urethrotomy, Direct Vision - 03/30/07 (Added by TW Conv) RI CYSTOURETHROSCOPY W/STEROID INJECTION STRICTURE Cystoscopy For Urethral Stricture With Steroid Injection - 03/30/07 (Added by TW Conv) RI NJX RETROGRADE URETHROCSTOGRAPY Bladder Injection Procedure For Retrograde Cystourethrogram - 03/30/07 (Added by TW Conv) RI COLECTOMY TOT ABDL W/PROCTECTOMY W/ILEOSTOMY Total Proctocolectomy - 07/21/06 (Added by TW Conv) RI APPENDECTOMY 11/30/1964 - 11/29/1965 Appendectomy - (Added by TW Conv) RI COLCT TOT ABDL W/O PRCTECT W/ILEOST/ILEOPXTS 11/30/2005 - 11/29/2006 Total Abdominal Colectomy With Ileostomy - (Added by TW Conv) ILEOSTOMY Ileostomy Care - (Added by TW Conv) RI NEPHRECTOMY W/PRTL URETERECTOMY W/OPEN RIB RESCJ 11/30/2011 [...] on file Legal Sex Male 4:34 PM PEDIATRIC ONCOLOGIST Gender Identity Not on file Sexual Orientation [...] (5' 9 ) 12/12/2024 12:0 8 PM PEDIATRIC ONCOLOGIST Body Mass Index 26.29 12/12/2024 12:08 PM PEDIATRIC ONCOLOGIST Plan of Treatment Health Maintenance Due Date Last Done Comments Colon Cancer Screening-Colonoscopy 1950 Depression Screening 1950 Hepatitis C Screening 1950 Hepatitis B Screening 1968 Zoster Vaccine (1 of 2) 2000 Well Visit 65+ 2015 Fall Risk Assessment 08/14/2023 08/14/2022 Covid-19 Vaccine (7 - 2023-2 5 season) 2024 05/05/2022, 10/02/2021, 01/29/2021, Additional history exists Influenza Vaccine (#1) 2024 , 09/06/2021, 08/29/2021, Additional history exists DTaP/Tdap/Td Vaccine (3 - Td or Tdap) 02/25/2028 02/24/2018, 02/24/2018 Pneumococcal vaccine 65+ Completed 019, 04/14/2016, 04/02/2015, Additional history exists Medical Devices Implanted Type Area Creel Selector Device Identifier Shelf Expiration Date Model / Serial / Lot Med[employer]onic [employer] Generator Neurostimulator Bowel Bladder Recharge Free Interstim X [id number] - [id number] Implanted:Qty: 1 on 08/13/2022 by Padmini Gonzalez MD at [facility] Neurostimulator [employer] 9 [id number] / / Med[employer]onic [employer] Interstim 28cm Quadripolar Mri Feeder/Folder Neurostimulator [id number] - Sna - [id number] Implanted:Qty: 1 on 07/30/2022 by Padmini Gonzalez MD at [facility] Other - see comments N/A: Back [employer]onic Inc 12/19/2023 [id number] / NA / [id number] Description:Lower back Implant pause performed interstim [employer] Inc Interstim 100cm Percutaneous Electrode Insulated Kit [id number] - Sna - [id number] Implanted:Qty: 1 on 07/30/2022 by Padmini Gonzalez MD at [facility] Other - see comments N/A: Back [employer] 04/25/2024 [id number] / NA / [id number] Description:Lower back Implant pause performed interstim Procedures Procedure Name Priority Date/Time Associated Diagnosis Comments URINE CULTURE Routine 02/08/2025 11:26 AM CDT Cystitis with hematuria POCT URINALYSIS DIPSTICK Routine 02/08/2025 8:47 AM CDT Cystitis with hematuria CEA Routine 12/12/2024 1:24 PM PEDIATRIC ONCOLOGIST History of malignant neoplasm of rectum XR CHEST PA LATERAL 2 VIEWS Schedule SRAVANI, Read SRAVANI (Appt Today, Awaiting Results) 12/12/2024 9:52 AM PEDIATRIC ONCOLOGIST Acute cough POC INFLUENZA A/B, COVID-19 ANTIGEN Routine 12/12/2024 9:31 AM PEDIATRIC ONCOLOGIST Acute non-recurrent maxillary sinusitis POCT RAPID STREP Routine 12/12/2024 9:20 AM PEDIATRIC ONCOLOGIST Acute non-recurrent maxillary sinusitis from Last 3 Months Results * Urine culture Urine, clean voided (02/08/2025 11:26 AM CDT) Pathologist [facility] Report Final Report: Less than 100,000 colonies/mL (clinically insignificant growth based on current clinical standards) Comment:Testing performed by : [facility], [address] [facility], [place]., [address] Organism (CLINICALLY INSIGNIFICANT GROWTH JUSTINE Urine, clean voided 02/08/2025 11:26 AM CDT 02/08/2025 6:04 PM CDT Narrative JUSTINE CARSON - 02/09/2025 7:50 PM CDT Testing performed by [facility] Microbiology Laboratory ([phone]) Shante Mcclure NP LAB MICROBIOLOGY - GENERAL ORDERABLES Final Result JUSTINE [id number] Department [place] [address] * (ABNORMAL) POCT urinalysis dipstick (02/08/2025 8:47 AM CDT) Pathologist [facility] Color, Urine, POC Dark Yellow Clarity, ur, POC Cloudy(A) Clear Glucose, ur, POC Negative Negative MG/DL Bilirubin, ur, POC Negative Negative, Small, Moderate, Large Ketones, ur, POC Negative Negative Specific [place], POC 1.025 1.003 - 1.030 Blood, ur, POC Large(A) Negative pH, ur, POC 5.5 5.0 - 8.0 Protein, ur, POC 300.(A) Negative Urobilinogen, urine, POC 0.2 0.2 - 1.0 mg/dL Nitrite, ur, POC Negative Negative Leukocytes, ur, POC Small(A) Negative Lot Number [id number] Urine 02/08/2025 8:47 AM CDT Shante Mcclure NP POINT OF CARE TEST ORDERAB LES Final Result * CEA (12/12/2024 1:24 PM PEDIATRIC ONCOLOGIST) CEA 0.8 <=5.0 ng/mL Comment: Interpretive Data: Reference Range: Non-Smokers: 0.0 5.0 ng/mL Smokers: 0.0 6.5 ng/mL The Juliet CEA assay procedure was used. Results from different manufacturers or methods may not be comparable. Serial testing should be performed using the same method. Current interpretive data was last revised 2022. Blood 12/12/2024 1:24 PM PEDIATRIC ONCOLOGIST 12/12/2024 2:00 PM PEDIATRIC ONCOLOGIST us Justin Avery MD LAB BLOOD ORDERABLES Final R esult JUSTINE [facility] Department [place] [address] * XR Chest Pa Lateral 2 Views (12/12/2024 9:52 AM PEDIATRIC ONCOLOGIST) Anatomical Region Laterality Modality Body, Chest N/A Digital Radiogra phy 12/12/2024 1:02 PM PEDIATRIC ONCOLOGIST Narrative 12/12/2024 1:03 PM PEDIATRIC ONCOLOGIST EXAM DESCRIPTION: XR CHEST PA LATERAL 2 [...] signed by Pro KENNY T: Report ID: [id number] Reading Location: [id number] Procedure Note Pro Mracus MD - 12/12/2024 EXAM DESCRIPTION: XR CHEST [...] Pro Marcus M.D. RB T: Report ID: [id number] Reading Location: [place] [address] Shante Mcclure INDUSTRIAL ORGANIZATION MANAGER IMG XR PROCEDURES Final Re sult * POC Influenza A/B, COVID-19 antigen (12/12/2024 9:31 AM PEDIATRIC ONCOLOGIST) Influenza A Ag, POC Negative Negative [facility] [place] [facility] Influenza B Ag, POC Negative Negative [facility] [place] [facility] COVID-19 Ag POC Presumptive Negative Presumptive Negative, Invalid [facility] Nasal 12/12/2024 9:31 AM PEDIATRIC ONCOLOGIST Shante Mcclure INDUSTRIAL ORGANIZATION MANAGER POINT OF CARE TEST ORDERAB LES Final Result [facility] [address] [place] [address] * POCT rapid strep A (12/12/2024 9:20 AM PEDIATRIC ONCOLOGIST) Rapid Strep A, POC Negative Negative Swab 12/12/2024 9:20 AM PEDIATRIC ONCOLOGIST Shante Mcclure NP POINT OF CARE TEST ORDERAB LES Final Result from Last 3 Months Insurance [address] [address] AETNA MEDICARE AETNA MEDICARE AETNA MEDICARE Advance Directives For more information, please contact: [phone] Documents on File Type Date Recorded Patient Customer Experience Consultant Expl anation ADVANCE DIRECTIVE 10/02/2020 11:54 AM Marcos r of [employer] * Full Code (Latest Code Status on File) Date Activated Date Inactivated Comments 08/13/2022 11:15 AM 08/14/2022 1:47 PM * Full Code Date Activated Date Inactivated Comments 11/11/2021 4:15 PM 11/11/2021 9:54 PM Care Teams Hvac R Instructor Relationship Specialty Start Date End Date Benton Loyd MD [address] [facility] [address] [address] PCP - General Internal Medicine 08/24/20 Justin Avery MD Surgeon Colon and Rectal Surgery 10/18/19 Deng Fagan MD [address] [address] Consulting Physician Urology 10/25/20 Padmini Gonzalez MD [address] [place] [address] Consulting Physician Urology 11/09/22 Nathaniel Merchant MD [address] [facility] [place] [address] Consulting Physician Gastroenterology 11/09/22
--- OUTSIDE RECORDS SUMMARY | 2025-03-10 08:01 | XMS_ITS | Encounter Summary ---
Author Organization [facility] Address [address] [place] [address] Phone Care Team Providers Care Repair Miller Name Role Phone Justin Avery MD Unavailable [phone] Benton Loyd MD Primary Care Provider [phone] Deng Fagan MD Unavailable [phone] Padmini Gonzalez MD Unavailable [phone] Nathaniel Merchant MD Unavailable [phone] Encounter Details Date Type Department Care Team (Late st Contact Info) Description 10/01/2022 Telephone [facility] Department of Surgery, Section of Colon and Rectal Surgery [address] [facility] Advanced Medicine 12th Floor, [place] [address] Sheyla Rhoades Social History Tobacco [...] on file Legal Sex Male 4:34 PM LASER ENGINEER Gender Identity Not on file Sexual Orientation Not on file documented as of this encounter Plan of Treatment Not on file documented as of this encounter Visit Diagnoses Not on filedocumented in this encounter Additional Health Concerns Infection Onset Date Last Indicated Resolved Time COVID: Suspected 12/12/2024 12/12/2024 12/12/2024 9:32 AM LASER ENGINEER documented as of this encounter Care Teams Repair Miller Relationship Specialty Start Date End Date Benton Loyd MD [address] [facility] [address] [address] PCP - General Internal Medicine 08/24/20 Justin Avery MD Surgeon Colon and Rectal Surgery 10/18/19 Deng Fagan MD [address] [facility] [address] [address] Consulting Physician Urology 10/25/20 [place] [address] [place] [address] Consulting Physician Urology 11/09/22 Nathaniel Merchant MD [address] [facility] [place] [place] [address] Consulting Physician Gastroenterology 11/09/22 documented as of this encounter
[2025-03-10 09:46] LABS: Anion Gap 18 mmol/L (4-12); Blood Urea Nitrogen 54 mg/dL (9-20); Calcium 9.1 mg/dL (8.4-10.2); Carbon Dioxide 10 mmol/L (22-30); Chloride 109 mmol/L (98-107); Estimated Glomerular Filt Rate 12; Glucose 125 mg/dL (65-110); Potassium 5.6 mmol/L (3.4-5.0); Sodium 137 mmol/L (137-145)
== END 2025-03-10 07:57 | disposition home or self-care (01) ==
PROVIDERS: Visit Provider Urology
DX: N13.30 Unspecified hydronephrosis (principal)
CPT/HCPCS: 36415; 80048

== ENCOUNTER 2025-03-10 15:26 | Inpatient (IN) | payer MEDICARE, SELFPAY ==
[2025-03-10] VITALS (10 sets, daily range): BP systolic 97–149; BP diastolic 50–64; PULSE 67–109; RESP 16–24; TEMP 37.4–39.2; O2SAT 94–100; BMI 23.6
--- NOTE | ~2025-03-10 | XR_ITS ---
EXAMINATION: XR retrograde pyelo w/stent RT DATE: 03/10/2025 15:53 INDICATION: Cystoscopy. Right internal ureteral stent placement. TECHNIQUE: 3 fluoroscopic images of the abdomen and pelvis were obtained during procedure performed satish Noguera. Radiologist was not present for the imaging or procedure. The amount of fluoroscopy dominguez e used during this procedure was 0.7 minutes. Total DAP was 0.609 mGym^2. COMPARISON: 03/09/2025 FINDINGS: Images demonstrate a right internal ureteral stent with loops formed in an upper pole calyx of the ri ght kidney and in the bladder. Contrast in the dilated right renal pelvis postoperative changes in th e pelvis as well as a sacral nerve root stimulator with distal lead projecting over the left sacral a la. IMPRESSION: 1. Fluoroscopy utilized during right intrarenal stent placement which is in expected position. See pr ocedure note for further detail. Reviewed, dictated and finalized at location A. IMPRESSION: 1. Fluoroscopy utilized during right intrarenal stent placement which is in exp ected position. See procedure note for further detail.
--- NOTE | 2025-03-10 11:37 | PC.NURSE ---
Report to the Outpatient Waiting Room, entrance under the green pavilion located off [facility], at time ___1330____ on date ___03/10/2025____. Planned Procedure Time: ____1530____.? Time changes happen often and if your time is changed the preop area will call you the afternoon before. - You and your visitor will be asked to self-screen and do not enter if you have any COVID symptoms. Please call surgeon if you need to reschedule. - A mask is optional within the hospital at this time. Patients may have clear liquids (water, carbonated beverages, clear teas, apple juice) until 3 hours prior to surgery with a maximum of 20 ounces. - No food from midnight until time of surgery and no smoking, or chewing tobacco (or any form of nicotine). No chewing gum, candy or mints. - Infants may have breast milk until 4 hours before surgery, formula 6 hours prior to surgery. - Children will be allowed to drink immediately following surgery.? If applicable, please bring a bottle or sippy cup to assist with drinking. Juice, water, soda, and popsicles are readily available.? For infants on formula, please bring formula the day of surgery.? Pacifiers are allowed. Take only the following medications with a SIP of water on the morning of surgery: amlodipine DO NOT STOP ANY OF YOUR OTHER PRESCRIPTION MEDICATIONS PRIOR TO SURGERY EXCEPT THE FOLLOWING Hold all vitamins and supplements for 3 days per anesthesiologist. Medications to discontinue per physician Date to take last dose Please no make-up, nail burmese, hairspray, perfume, deodorant, or body powder the day of surgery.? No jewelry (including any body piercings) or valuables the day of surgery, leave them at home.? Please take a shower or bath the night before, or the morning of, surgery with an antibacterial soap.? Wear comfortable, loose fitting clothing.? Children are encouraged to wear pajamas. - Jewelry must be removed prior to entering the operating room.? Rings and piercings that are not removed may be cut off. - The hospital will not accept responsibility for valuables.? - Please leave all valuables, including medications, at home the day of surgery. If you are going home after surgery, a licensed combine driver must drive you home.? - NO public transportation without another adult if you receive anesthesia. - We recommend that an adult stay with you for 24 hours following discharge. - We also recommend that you do not drive, make important decision, drink alcoholic beverages, or take any drugs that were not prescribed by your health care provider for at least 24 hours after your discharge time. For Pediatric surgeries, we recommend two adults accompany the child home. Follow any additional instructions given to you from your surgeon. Telephone instructions given to ____Mitchel and asked if any additional questions and then verbalized understanding. Patient advised to call surgeon office or pre surgery nurse liaison [phone] if any additional questions.
--- OUTSIDE RECORDS SUMMARY | 2025-03-10 13:22 | XMS_ITS | Clinical Summary ---
Author Organization [facility] Address [address] [place] [address] Care Team Providers Care Screw Machine Hand Name Role Phone Unavailable Primary Care Provider [...]
--- OUTSIDE RECORDS SUMMARY | 2025-03-10 13:22 | XMS_ITS | Encounter Summary ---
Author Organization [facility] Address [address] [place] [address] Phone Care Team Providers Care Technical Support 1 Software Engineer Name Role Phone Justin Avery MD Unavailable [phone] Benton Loyd MD Primary Care Provider [phone] Deng Fagan MD Unavailable [phone] Padmini Gonzalez MD Unavailable [phone] Nathaniel Merchant MD Unavailable [phone] Encounter Details Date Type Department Care Team (Late st Contact Info) Description 10/01/2022 Telephone [facility] Department of Surgery, Section of Colon and Rectal Surgery [address] [facility] Advanced Medicine 12th Floor, [place] [address] Sheyla Rhoades Social History Tobacco [...] on file Legal Sex Male 4:34 PM HIM SPECIALISTS Gender Identity Not on file Sexual Orientation Not on file documented as of this encounter Plan of Treatment Not on file documented as of this encounter Visit Diagnoses Not on filedocumented in this encounter Additional Health Concerns Infection Onset Date Last Indicated Resolved Time COVID: Suspected 12/12/2024 12/12/2024 12/12/2024 9:32 AM HIM SPECIALISTS documented as of this encounter Care Teams Technical Support 1 Software Engineer Relationship Specialty Start Date End Date Benton Loyd MD [address] [facility] [address], [place] [address] PCP - General Internal Medicine 08/24/20 Justin Avery MD Surgeon Colon and Rectal Surgery 10/18/19 Deng Fagan MD [address] [facility] [address] [address] Consulting Physician Urology 10/25/20 [place] [address] [place] [address] Consulting Physician Urology 11/09/22 Nathaniel Merchant MD [address] [facility] [place] [address] Consulting Physician Gastroenterology 11/09/22 documented as of this encounter
--- OUTSIDE RECORDS SUMMARY | 2025-03-10 13:22 | XMS_ITS | Encounter Summary ---
Author Organization [facility] Address [address] [place] [address] Care Team Providers Care Shrimp Peeling Machine Tender Name Role Phone Justin Avery MD Unavailable [phone] Benton Loyd MD Primary Care Provider [phone] Deng Fagan MD Unavailable [phone] Padmini Gonzalez MD Unavailable [phone] Nathaniel Merchant MD Unavailable [phone] Encounter Details Date Type Department Care Team (Late st Contact Info) Description 02/09/2025 Results Follow-Up [facility] Care at [address] [address] Jackson Childers NP [address] [place] [address] [address] [place] [address] Social History Tobacco Use Types [...] on file Legal Sex Male 4:34 PM TOBACCO PACKING MACHINE OPERATOR Gender Identity Not on file [...] on filedocumented in this encounter Care Teams Shrimp Peeling Machine Tender Relationship Specialty Start Date End Date Benton Loyd MD [address], [place] [address] PCP - General Internal Medicine 08/24/20 Justin Avery MD Surgeon Colon and Rectal Surgery 10/18/19 Deng Fagan MD [address], [place] [address] Consulting Physician Urology 10/25/20 Padmini Gonzalez MD [address] [address] Consulting Physician Urology 11/09/22 Nathaniel Merchant MD [address] [facility] [place] [address] Consulting Physician Gastroenterology 11/09/22 documented as of this encounter
--- OUTSIDE RECORDS SUMMARY | 2025-03-10 13:22 | XMS_ITS | Clinical Summary ---
Author Organization [facility] Address [address] [place] [address] Care Team Providers Care Manual Arts Therapy Teacher Name Role Phone Justin Avery MD Unavailable Benton Loyd MD Primary Care Provider [phone] Deng Fagan MD Unavailable Padmini Gonzalez MD Unavailable [phone] Nathaniel Merchant MD Unavailable Allergies Active Allergy [...] (06/04/2022): Added automatically from request for surgery [id number] OAB (overactive bladder) 06/04/2022 Overview (06/04/2022): Added automatically from request for surgery [id number] 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 Overview (02/15/2020): Added automatically from request for surgery [id number] Ileostomy care 09/23/2017 History of malignant neoplasm of rectum 08/18/20 14 Crohn's disease of rectum 12/07/2009 Encounters Date Type Department Care Team Description 02/09/2025 Results Follow-Up [facility] Convenient Care at [address] [phone] Jackson Childers NP 02/08/2025 11:26 AM CDT - 02/08/2025 11:59 PM CDT Hospital Encounter [address] [address] Cystitis with hematuria Discharge Disposition: Discharge to home or self care 02/08/2025 8:45 AM CDT Office Visit [facility] Con[facility]ient Care at [address] [phone] Radha Baca PA Cystitis with hematuria (Primary Dx) 12/13/2024 Telephone [facility] Surgery [address] [place] [phone] Shante Porter RMA Test Results 12/12/2024 1:45 PM HOST Lab [facility] - Lab Collection [address] [place] [address] [address] [place] [address] History of malignant neoplasm of rectum 12/12/2024 12:45 PM HOST Office Visit [facility] Surgery [address] [place] [phone] Justin Avery MD History of malignant neoplasm of rectum (Primary Dx); Stage 4 chronic kidney disease (HCC); 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 Imaging at [address] [phone] Acute cough 12/12/2024 9:30 AM HOST Office Visit [facility] Medical Group Convenient Care at [address] [phone] Shante Mcclure NP Acute cough [...] 02/24/2018 Surgical History Surgery Date Site/Laterality Comments MI REVISION PRIOR HYPOSPADIAS REPAIR DSJ&EXC RCNSTJ Surg Penis Repair Of Hypospadias Cripple - 03/11/05 (Added by TW Conv) MI CYSTOURETHROSCOPY W/INTERNAL URETHROTOMY Cystoscopy With Internal Urethrotomy, Direct Vision - 03/30/07 (Added by TW Conv) MI CYSTOURETHROSCOPY W/STEROID INJECTION STRICTURE Cystoscopy For Urethral Stricture With Steroid Injection - 03/30/07 (Added by TW Conv) MI NJX RETROGRADE URETHROCSTOGRAPY Bladder Injection Procedure For Retrograde Cystourethrogram - 03/30/07 (Added by TW Conv) MI COLECTOMY TOT ABDL W/PROCTECTOMY W/ILEOSTOMY Total Proctocolectomy - 07/21/06 (Added by TW Conv) MI APPENDECTOMY 11/30/1964 - 11/29/1965 Appendectomy - (Added by TW Conv) MI COLCT TOT ABDL W/O PRCTECT W/ILEOST/ILEOPXTS 11/30/2005 - 11/29/2006 Total Abdominal Colectomy With Ileostomy - (Added by TW Conv) ILEOSTOMY Ileostomy Care - (Added by TW Conv) MI NEPHRECTOMY W/PRTL URETERECTOMY W/OPEN RIB RESCJ 11/30/2011 [...] on file Legal Sex Male 4:34 PM HOST Gender Identity Not on file Sexual Orientation [...] (5' 9 ) 12/12/2024 12:0 8 PM HOST Body Mass Index 26.29 12/12/2024 12:08 PM HOST Plan of Treatment Health Maintenance Due Date [...] history exists Medical Devices Implanted Type Area Ordering Machine Operator Device Identifier Shelf Expiration Date Model / Serial / Lot Medtronic Inc Generator Neurostimulator Bowel Bladder Recharge Free Interstim X [id number] - [id number] Implanted:Qty: 1 on 08/13/2022 by Padmini Gonzalez MD at [facility] Neurostimulator [employer] [id number] / / Med[employer]onic [employer] Interstim 28cm Quadripolar Mri Mixer Machine Feeder Neurostimulator [id number] - Sna - [id number] Implanted:Qty: 1 on 07/30/2022 by Padmini Gonzalez MD at [facility] Other - see comments N/A: Back Med[employer]onic Inc 12/19/2023 [id number] / NA / [id number] Description:Lower back Implant pause performed interstim Med[employer] Interstim 100cm Percutaneous Electrode Insulated Kit [id number] - Sna - [id number] Implanted:Qty: 1 on 07/30/2022 by Padmini Gonzalez MD at [facility] Other - see comments N/A: Back [employer] 04/25/2024 [id number] / NA / [id number] Description:Lower back Implant pause performed interstim Procedures Procedure Name Priority Date/Time Associated Diagnosis Comments URINE CULTURE Routine 02/08/2025 11:26 AM CDT Cystitis with hematuria POCT URINALYSIS DIPSTICK Routine 02/08/2025 8:47 AM CDT Cystitis with hematuria CEA Routine 12/12/2024 1:24 PM HOST History of malignant neoplasm of rectum XR CHEST PA LATERAL 2 VIEWS Schedule SRAVANI, Read SRAVANI (Appt Today, Awaiting Results) 12/12/2024 9:52 AM HOST Acute cough POC INFLUENZA A/B, COVID-19 ANTIGEN Routine 12/12/2024 9:31 AM HOST Acute non-recurrent maxillary sinusitis POCT RAPID STREP Routine 12/12/2024 9:20 AM HOST Acute non-recurrent maxillary sinusitis from Last 3 Months Results * Urine culture Urine, clean voided (02/08/2025 11:26 AM CDT) Pathologist [facility] Report Final Report: Less than 100,000 colonies/mL (clinically insignificant growth based on current clinical standards) Comment:Testing performed by : [facility], [address] [facility], [place]., [address] Organism (CLINICALLY INSIGNIFICANT GROWTH JUSTINE Urine, clean voided 02/08/2025 11:26 AM CDT 02/08/2025 6:04 PM CDT Narrative JUSTINE CARSON - 02/09/2025 7:50 PM CDT Testing performed by [facility]biology [facility] ([phone]) Shante Mcclure NP LAB MICROBIOLOGY - GENERAL ORDERABLES Final Result JUSTINE [id number] Department [place] [address] * (ABNORMAL) POCT urinalysis dipstick (02/08/2025 8:47 AM CDT) Pathologist [facility] Color, Urine, POC Dark Yellow Clarity, ur, POC Cloudy(A) Clear Glucose, ur, POC Negative Negative MG/DL Bilirubin, ur, POC Negative Negative, Small, Moderate, Large Ketones, ur, POC Negative Negative Specific [place], POC 1.025 1.003 - 1.030 Blood, ur, POC Large(A) Negative pH, ur, POC 5.5 5.0 - 8.0 Protein, ur, POC 300.(A) Negative Urobilinogen, urine, POC 0.2 0.2 - 1.0 mg/dL Nitrite, ur, POC Negative Negative Leukocytes, ur, POC Small(A) Negative Lot Number [id number] Urine 02/08/2025 8:47 AM CDT Shante Mcclure NP POINT OF CARE TEST ORDERAB LES Final Result * CEA (12/12/2024 1:24 PM HOST) CEA 0.8 <=5.0 ng/mL Comment: Interpretive Data: Reference Range: Non-Smokers: 0.0 5.0 ng/mL Smokers: 0.0 6.5 ng/mL The Juliet CEA assay procedure was used. Results from different manufacturers or methods may not be comparable. Serial testing should be performed using the same method. Current interpretive data was last revised 2022. Blood 12/12/2024 1:24 PM HOST 12/12/2024 2:00 PM HOST us Justin Avery MD LAB BLOOD ORDERABLES Final R esult JUSTINE [facility] [place] [address] * XR Chest Pa Lateral 2 Views (12/12/2024 9:52 AM HOST) Anatomical Region Laterality Modality Body, Chest N/A Digital Radiogra phy 12/12/2024 1:02 PM HOST Narrative 12/12/2024 1:03 PM HOST EXAM DESCRIPTION: XR CHEST PA LATERAL 2 [...] signed by Pro KENNY T: Report ID: [id number] Reading Location: [id number] Procedure Note Pro Marcus MD - 12/12/2024 [...] Pro Marcus M.D. RB T: Report ID: [id number] Reading Location: [place] [address] Shante Mcclure CREDIT ASSOCIATE IMG XR PROCEDURES Final Re sult * POC Influenza A/B, COVID-19 antigen (12/12/2024 9:31 AM HOST) Influenza A Ag, POC Negative Negative [facility] Influenza B Ag, POC Negative Negative [facility] COVID-19 Ag POC Presumptive Negative Presumptive Negative, Invalid [facility] Nasal 12/12/2024 9:31 AM HOST Shante Mcclure CREDIT ASSOCIATE POINT OF CARE TEST ORDERAB LES Final Result [facility] ED[facility] [address] [place] [address] * POCT rapid strep A (12/12/2024 9:20 AM HOST) Rapid Strep A, POC Negative Negative Swab 12/12/2024 9:20 AM HOST Shante Mcclure NP POINT OF CARE TEST ORDERAB LES Final Result from Last 3 Months [address] [address] AETNA MEDICARE AETNA MEDICARE AETNA MEDICARE Advance Directives For more information, please contact: [phone] Documents on File Type Date Recorded Patient Water Purification Chemist Expl anation ADVANCE DIRECTIVE 10/02/2020 11:54 AM Marcos r of [employer] Record Clerk-Medical * Full Code (Latest Code Status on File) Date Activated Date Inactivated Comments 08/13/2022 11:15 AM 08/14/2022 1:47 PM * Full Code Date Activated Date Inactivated Comments 11/11/2021 4:15 PM 11/11/2021 9:54 PM Care Teams Manual Arts Therapy Teacher Relationship Specialty Start Date End Date Benton Loyd MD [address] [facility] [address], [place] [address] PCP - General Internal Medicine 08/24/20 Justin Avery MD Surgeon Colon and Rectal Surgery 10/18/19 Deng Fagan MD [address] [facility] [address], [place] [address] Consulting Physician Urology 10/25/20 Padmini Gonzalez MD [address] [place] [address] Consulting Physician Urology 11/09/22 Nathaniel Merchant MD [address] [facility] [place] [address] Consulting Physician Gastroenterology 11/09/22
--- OUTSIDE RECORDS SUMMARY | 2025-03-10 13:22 | XMS_ITS | Referral Summary ---
Author Organization [facility] Address [address] [place] [address] Care Team Providers Care Gyro Compass Tester Name Role Phone Justin Avery MD Unavailable [phone] Benton Loyd MD Primary Care Provider [phone] Deng Fagan MD Unavailable Padmini Gonzalez MD Unavailable [phone] Nathaniel Merchant MD Unavailable Encounters Date Type Department Care Team Description 02/09/2025 Results Follow-Up [facility] Medical Group Convenient Care at [address] [phone] Jackson Childers NP 02/08/2025 11:26 AM CDT - 02/08/2025 11:59 PM CDT Hospital Encounter [address] [address] Cystitis with hematuria Discharge Disposition: Discharge to home or self care 02/08/2025 8:45 AM CDT Office Visit [facility] Medical Group Convenient Care at [address] [phone] Radha Baca PA Cystitis with hematuria (Primary Dx) 12/13/2024 Telephone [facility] Surgery [facility] Floor 5 [place] [address] Shante Porter RMA Test Results 12/12/2024 1:45 PM MULTI SHARE PROGRAM COORDINATOR Lab [facility] - Lab Collection [address] [facility] Floor 5 [place] [address] History of malignant neoplasm of rectum 12/12/2024 9:40 AM MULTI SHARE PROGRAM COORDINATOR Ancillary Procedure [facility] Medical Group Imaging at [address] [phone] Acute cough 12/12/2024 9:30 AM MULTI SHARE PROGRAM COORDINATOR Office Visit [facility] Medical Group Convenient Care at [address] [phone] Shante Mcclure NP Acute cough (Primary Dx); Acute non-recurrent maxillary sinusitis 12/12/2024 12:45 PM MULTI SHARE PROGRAM COORDINATOR Office Visit [facility] Surgery [facility] Floor [address] [place] [phone] Justin Avery MD History of malignant neoplasm [...] (06/04/2022): Added automatically from request for surgery [id number] OAB (overactive bladder) 06/04/2022 Overview (06/04/2022): Added automatically from request for surgery [id number] 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 Overview (02/15/2020): Added automatically from request for surgery [id number] Ileostomy care 09/23/2017 History of malignant neoplasm [...] on file Legal Sex Male 4:34 PM MULTI SHARE PROGRAM COORDINATOR Gender Identity Not on file Sexual Orientation [...] (5' 9 ) 12/12/2024 12:0 8 PM MULTI SHARE PROGRAM COORDINATOR Body Mass Index 26.29 12/12/2024 12:08 PM MULTI SHARE PROGRAM COORDINATOR Plan of Treatment Not on file Medical Devices Implanted Type Area Automatic Clipper And Stripper Device Identifier Shelf Expiration Date Model / Serial / Lot Medtronic Inc Generator Neurostimulator Bowel Bladder Recharge Free Interstim X [id number] - [id number] Implanted:Qty: 1 on 08/13/2022 by Padmini Gonzalez MD at [facility] Neurostimulator [employer] 9 [id number] / / [employer] Interstim 28cm Quadripolar Mri Medical Delivery Technician Neurostimulator [id number] - Sna - [id number] Implanted:Qty: 1 on 07/30/2022 by Padmini Gonzalez MD at [facility] Other - see comments N/A: Back [employer] Inc 12/19/2023 [id number] / NA / [id number] Description:Lower back Implant pause performed interstim [employer] Inc Interstim 100cm Percutaneous Electrode Insulated Kit [id number] - Sna - [id number] Implanted:Qty: 1 on 07/30/2022 by Padmini Gonzalez MD at [facility] Other - see comments N/A: Back [employer] Inc 04/25/2024 [id number] / NA / [id number] Description:Lower back Implant pause performed interstim Procedures Procedure Name Priority Date/Time Associated Diagnosis Comments URINE CULTURE Routine 02/08/2025 11:26 AM CDT Cystitis with hematuria POCT URINALYSIS DIPSTICK Routine 02/08/2025 8:47 AM CDT Cystitis with hematuria CEA Routine 12/12/2024 1:24 PM MULTI SHARE PROGRAM COORDINATOR History of malignant neoplasm of rectum XR CHEST PA LATERAL 2 VIEWS Schedule SRAVANI, Read SRAVANI (Appt Today, Awaiting Results) 12/12/2024 9:52 AM MULTI SHARE PROGRAM COORDINATOR Acute cough POC INFLUENZA A/B, COVID-19 ANTIGEN Routine 12/12/2024 9:31 AM MULTI SHARE PROGRAM COORDINATOR Acute non-recurrent maxillary sinusitis POCT RAPID STREP Routine 12/12/2024 9:20 AM MULTI SHARE PROGRAM COORDINATOR Acute non-recurrent maxillary sinusitis from Last 3 Months Results * Urine culture Urine, clean voided (02/08/2025 11:26 AM CDT) Report Final Report: Less than 100,000 colonies/mL (clinically insignificant growth based on current clinical standards) Comment:Testing performed by : [facility], [address] [place]., [address] Organism (CLINICALLY INSIGNIFICANT GROWTH JUSTINE Urine, clean voided 02/08/2025 11:26 AM CDT 02/08/2025 6:04 PM CDT Narrative JUSTINE CARSON - 02/09/2025 7:50 PM CDT Testing performed by [facility] Microbiology Laboratory ([phone]) Shante Mcclure NP LAB MICROBIOLOGY - GENERAL ORDERABLES Final Result JUSTINE [id number] Department [place] [address] * (ABNORMAL) POCT urinalysis dipstick (02/08/2025 8:47 AM CDT) Color, Urine, POC Dark Yellow Clarity, ur, POC Cloudy(A) Clear Glucose, ur, POC Negative Negative MG/DL Bilirubin, ur, POC Negative Negative, Small, Moderate, Large Ketones, ur, POC Negative Negative Specific [place], POC 1.025 1.003 - 1.030 Blood, ur, POC Large(A) Negative pH, ur, POC 5.5 5.0 - 8.0 Protein, ur, POC 300.(A) Negative Urobilinogen, urine, POC 0.2 0.2 - 1.0 mg/dL Nitrite, ur, POC Negative Negative Leukocytes, ur, POC Small(A) Negative Lot Number [id number] Urine 02/08/2025 8:47 AM CDT Shante Mcclure NP POINT OF CARE TEST ORDERAB LES Final Result * CEA (12/12/2024 1:24 PM MULTI SHARE PROGRAM COORDINATOR) CEA 0.8 <=5.0 ng/mL Comment: Interpretive Data: Reference Range: Non-Smokers: 0.0 5.0 ng/mL Smokers: 0.0 6.5 ng/mL The Juliet CEA assay procedure was used. Results from different manufacturers or methods may not be comparable. Serial testing should be performed using the same method. Current interpretive data was last revised 2022. Blood 12/12/2024 1:24 PM MULTI SHARE PROGRAM COORDINATOR 12/12/2024 2:00 PM MULTI SHARE PROGRAM COORDINATOR Justin Avery MD LAB BLOOD ORDERABLES Final R esult [facility] [address] [facility] Department [place] [address] * XR Chest Pa Lateral 2 Views (12/12/2024 9:52 AM MULTI SHARE PROGRAM COORDINATOR) Anatomical Region Laterality Modality Body, Chest N/A Digital Radiogra phy 12/12/2024 1:02 PM MULTI SHARE PROGRAM COORDINATOR Narrative 12/12/2024 1:03 PM MULTI SHARE PROGRAM COORDINATOR EXAM DESCRIPTION: XR CHEST PA LATERAL 2 [...] Pro Marcus M.D. RB T: Report ID: [id number] Reading Location: [id number] Procedure Note Pro Marcus MD - 12/12/2024 [...] Pro Marcus M.D. RB T: Report ID: [id number] Reading Location: [place] [address] Shante Mcclure HOME CARE CONSULTANT IMG XR PROCEDURES Final Re sult * POC Influenza A/B, COVID-19 antigen (12/12/2024 9:31 AM MULTI SHARE PROGRAM COORDINATOR) Influenza A Ag, POC Negative Negative [facility] EDW Influenza B Ag, POC Negative Negative [facility] COVID-19 Ag POC Presumptive Negative Presumptive Negative, Invalid [facility] ED[facility] Nasal 12/12/2024 9:31 AM MULTI SHARE PROGRAM COORDINATOR Shante Mcclure HOME CARE CONSULTANT POINT OF CARE TEST ORDERAB LES Final Result [facility] EDW [address] [place] [address] * POCT rapid strep A (12/12/2024 9:20 AM MULTI SHARE PROGRAM COORDINATOR) Rapid Strep A, POC Negative Negative Swab 12/12/2024 9:20 AM MULTI SHARE PROGRAM COORDINATOR Shante Mcclure HOME CARE CONSULTANT POINT OF CARE TEST ORDERAB LES Final Result from Last 3 Months Insurance [facility] MEDICARE [facility] MEDICARE AETNA MEDICARE Advance Directives For more information, please contact: [phone] Documents on File Type Date Recorded Patient Director Operating Room Expl anation ADVANCE DIRECTIVE 10/02/2020 11:54 AM Marcos r of Carton Liner-Medical * Full Code (Latest Code Status on File) Date Activated Date Inactivated Comments 08/13/2022 11:15 AM 08/14/2022 1:47 PM * Full Code Date Activated Date Inactivated Comments 11/11/2021 4:15 PM 11/11/2021 9:54 PM Care Teams Gyro Compass Tester Relationship Specialty Start Date End Date Benton Loyd MD [address] [facility] [address] [place] [address] PCP - General Internal Medicine 08/24/20 Justin Avery MD Surgeon Colon and Rectal Surgery 10/18/19 Deng Fagan MD [address] [facility] [address] [place] [address] Consulting Physician Urology 10/25/20 [place] [address] [place] [address] Consulting Physician Urology 11/09/22 Nathaniel Merchant MD [address] [facility] [address] [place] [address] Consulting Physician Gastroenterology 11/09/22
[2025-03-10] MEDS: ACETAMINOPHEN 500 MG TABLET 1000 MG PO (13:45)
--- NOTE | 2025-03-10 13:50 | P.PNAN_ITS ---
Anes - Eval Final PreProcedure Day of Procedure 03/10/25 13:50 Patient weight: normal Heart: regular rate and rhythm Lungs: clear to auscultation Airway: Mallampati scale class II Neurological: alert and oriented Last oral intake: >/= 8 hours ASA classification: III Emergent: yes Anesthetic plan: proceed Anesthesia type and monitoring: general ETT and standard monitoring Results Review: All pre-operative results and documents have been reviewed as part of the pre- operative evaluation. Informed Consent: The patient's anesthetic plan and its attendant risks and benefits were discussed with the patient/family/POA. Questions were solicited and answers provided to the satisfaction of the patient/family/POA.
[2025-03-10 14:02] LABS: Glucose Point of Care 119 mg/dl (65-105)
[2025-03-10] MEDS: SODIUM CHLORIDE 0.9% IV 500 ML 30 ML IV CONT (14:23)
--- NOTE | 2025-03-10 15:17 | P.HP_ITS ---
H&P: HPI History of Present Illness Date/Time: 03/10/25 15:17 Chief Complaint: Fever, right hydronephrosis Narrative: Very pleasant 74-year-old gentleman who is extensive urological history was outlined recently about by partner Dr. Gallo. 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 As an infant he had multiple procedures for hypospadias. Additionally he has a GI diversion via ileostomy. He has a known solitary right kidney and several weeks ago developed right pyelonephritis. Dr. Gallo placed a right ureteral stent. At the time he noticed a patulous ureteral orifice and hydronephrosis to a narrowing in the right distal ureter. Just yesterday I evaluated patient under anesthesia. I removed his indwelling ureteral stent. With low pressure cystogram we demonstrated right vesicoureteral reflux at a very low volume (125 cc). Retrograde pyelography did demonstrated narrowing of the right distal ureter but it drained very promptly. In light of these findings we opted to leave the ureteral stent out. The following morning, despite having no flank pain and good urine output, follow-up labs demonstrated significant progression of renal dysfunction. I made plans to replace his ureteral stent. In the interval between morning labs and stent placement he developed a fever to 102. Plan cysto with right ureteral stent placement. 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 Code status: Full code. Smoking status: Never smoker Alcohol intake: current Drinks per week: 2 Substance use: never Substance use type: does not use Do You Feel Safe in your Home?: Yes Lack of Transportation: No Lack of Food: Never True Current Housing: I Have Housing Concerned About Future Housing: No Difficulty Paying Gas/Electric Bills: No Difficulty Paying for Meds: No Currently Unemployed: No Education: Don't Know Difficulty w/ Childcare or Family Care: No Living arrangements: with family Additional living arrangements comments: Lives with spouse in [place]. 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: No Meds Home Medications and Allergies Home Medications ?Medication ?Instructions ?Recorded ?Confirmed ?Type amlodipine 10 mg tablet 10 mg PO DAILY 11/28/19 03/10/25 History atorvastatin 20 mg tablet 20 mg PO DAILY 11/28/19 03/10/25 History irbesartan 75 mg tablet 75 mg PO DAILY 11/28/19 03/10/25 History magnesium chloride 71.5 mg 71.5 mg PO DAILY 11/28/19 03/10/25 History (magnesium chloride) tablet,delayed release (Nu-Mag) omeprazole 20 mg capsule,delayed 20 mg PO DAILY 11/28/19 03/10/25 History release ropinirole 3 mg tablet 3 mg PO HS 11/28/19 03/10/25 History sitagliptin phosphate 50 mg tablet 50 mg PO DAILY 11/28/19 03/10/25 History (Januvia) cholecalciferol (vitamin D3) 25 25 mcg PO DAILY 02/18/25 03/10/25 History mcg (1,000 unit) capsule cyanocobalamin (vitamin B-12) 2,000 mcg PO DAILY 02/18/25 03/10/25 History 1,000 mcg capsule loperamide 2 mg capsule 4 mg PO BID 02/27/25 03/10/25 History (Anti-Diarrheal (loperamide)) Allergies Allergy/AdvReac Type Severity Reaction Status Date / Time No Known Allergies Allergy Verified 03/10/25 13:48 Vital Signs Vital Signs - 24 hr 03/10/25 13:49 Temperature 102.6 F H Pulse Rate 109 H Blood Pressure 147/53 H Pulse Oximetry 100 Oxygen Delivery Room Air Exam Const: General: no acute distress Resp: Effort & Inspection: normal respiratory effort GI: Inspection: non-distended GI Palp: No abdominal tenderness and No Guarding due to palpation present (GI) Auscultation: normal bowel sounds Assessment and Plan Assessment and plan (1) Hydroureteronephrosis: Code(s): N13.30 - Unspecified hydronephrosis Status: Acute (2) Acute renal failure: Code(s): N17.9 - Acute kidney failure, unspecified Status: Acute (3) History of left nephrectomy: Code(s): Z90.5 - Acquired absence of kidney Status: Acute Assessment and Plan: * Cystoscopy, right ureteral stent placement
--- NOTE | 2025-03-10 15:22 | WPDHPUPDATE1 ---
History and Physical Update Update Date/Time: 03/10/25 15:22 History and Physical has been reviewed, including an updated exam of the patient. There are NO changes in the patient's condition. Risks, benefits, and alternatives have been discussed and questions answered. Patient agrees to proceed with procedure.
[2025-03-10] MEDS: LIDOCAINE 2% GEL UROJET 10 ML PKG MUCOUS MEM (15:41)
--- NOTE | 2025-03-10 16:06 | P.OP_ITS ---
Procedure Note - Detailed Date of Procedure 03/10/25 Pre-op Diagnosis Right hydronephrosis Post-op Diagnosis Same Procedure Performed Cystoscopy, right retrograde pyelography, right ureteral stent placement Surgeon James Noguera MD Anesthesia MAC Description of Procedure Patient brought the operative suite was prepped draped in routine sterile fashion while in dorsal lithotomy position after the uneventful induction of systemic sedation. 2% xylocaine jelly was introduced intraurethrally and allowed to stand for an appropriate period of time. Cystoscopy was undertaken with a 19 F rigid cystoscope. His minimal prostatic hyperplasia. He has a patulous right ureteral orifice. Retrograde pyelography was obtained via a [place] catheter to ensure appropriate placement of a 4.8 F variable length ureteral stent with proximal coil in the renal pelvis and distal coil in the bladder. Cystoscope was removed and a 16 F Uriarte catheter was placed to drainage. Drains Yes Packing No Pathology None sent Complications No immediate complications
[2025-03-10 16:31] LABS: Glucose Point of Care 113 mg/dl (65-105)
--- NOTE | 2025-03-10 17:37 | ADMGEN ---
This patient, Ganesh Vásquez, was admitted to -. Patient/family oriented to hospital policies and general routines including ID bracelet, bed and alarms, visiting hours, pain management, procedures, bathroom and other care routines, personal items, smoking policy, room service/diet, and visiting hours. Information on how to activate the Rapid Response Team has been discussed. Patient/Family are encouraged to report perceived risks to care and to ask questions if they do not understand what they are told or what they should do.
[2025-03-10] MEDS: LOPERAMIDE HCL 2 MG CAPSULE 4 MG PO (17:50)
--- NOTE | 2025-03-10 17:50 | PC.NURSE ---
Per pt. He would like to be a DNR. Secondary nurse Joan S. witness and changed in the system.
[2025-03-10] MEDS: DEXTROSE 5%/0.9% SOD CHL 1,000 ML 125 ML IV CONT (17:55)
--- NOTE | 2025-03-10 18:15 | P.CONIM_ITS ---
Assessment and Plan Assessment and plan (1) Sepsis: Qualifiers: Acute renal failure type: unspecified Sepsis acute organ dysfunction status: with acute organ dysfunction Sepsis type: sepsis due to unspecified organism Severe sepsis acute organ dysfunction type: acute renal failure S evere sepsis shock status: without septic shock Qualified Code(s): A41.9 - Sepsis, unspecified organism; R65.20 - Severe sepsis without septic shock; N17.9 - Acute kidney failure, unspecified Code(s): A41.9 - Sepsis, unspecified organism Status: Acute Assessment and Plan: Meets SIRS criteria: HR, temp. Check CBC, lactic acid, and procalcitonin. Sepsis bolus ordered: 2.1L of LR. Suspected source - urine, recent UTI and kidney stones with stent placement. Check UA and urine culture. Started on ceftriaxone on 03/10. Recent bacteremia, blood culture that were drawn on 02/17/2025 grew E coli 2/2 that was resistant to Bactrim and intermediate to Cipro and Levaquin. Blood cultures redrawn on 03/10, follow. If UA is unremarkable, will broaden and check CXR and viral PCR. (2) Acute on chronic kidney failure: Qualifiers: Acute renal failure type: unspecified Chronic kidney disease stage: u nspecified stage Qualified Code(s): N17.9 - Acute kidney failure, unspecified; N18.9 - Chronic kidney disease, unspecified Code(s): N17.9 - Acute kidney failure, unspecified; N18.9 - Chronic kidney disease, unspecified Status: Acute Assessment and Plan: Right ureteral stent removed on 03/09. Renal function at that time was 3.01, BUN 47, GFR 20. Repeat today showed 4.7, BUN 54, GFR 12. Urology primary. Plan for replacement of right stent. Presumed infectious urine, check UA. UC pending, follow. Given sepsis bolus (2.1L), assess toleration prior to initiation of maintenance fluids. Started on ceftriaxone on 03/10. Most recent urine culture from 02/17/2025 grew E coli that is resistant to Bactrim and intermediate to Cipro and Levaquin. Analgesics and antiemetics p.r.n.. (3) Acute hyperkalemia: Code(s): E87.5 - Hyperkalemia Status: Acute Assessment and Plan: K 5.6. Will treat with Lokelma x1 and sodium bicarbonate. Recheck this evening -> 5.4. Re-dose with calcium, insulin/dextrose, Kayexalate, and albuterol. Monitor. (4) Hypertension: Qualifiers: Hypertension type: primary hypertension Qualified Code(s): I10 - Essential (primary) hypertension Code(s): I10 - Essential (primary) hypertension Status: Chronic Assessment and Plan: Chronic, currently 104/52. Intermittently soft since arrival. Will hold amlodipine and irbesartan, resume when appropriate. Monitor. 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 Currently controlled with Januvia and diet. Januvia continued. Glucose checks ACHS and hypoglycemia protocol in place. Diet: Regular GI Prophylaxis: Not currently indicated DVT Prophylaxis: SCDs Lines: Peripheral Code Status: DNR HPI Date of Consult Consult date: 03/10/25 Requesting Physician: James Noguera MD Primary Care Provider: Benton Loyd Consult Narrative Reason for consult: Medical Management Narrative: 74 y/o M with PMH of CKD, carcinoma of colorectal region (s/p radiation, total colectomy, and partial small-bowel resection), HTN, RLS, HLD, Crohn's disease, kidney stones, nephrectomy (left, 2011), borderline diabetic (controlled with Januvia and diet), hypospadia S/P surgery x3 presents here for replacement of his right ureteral stent. The patient was recently admitted from 02/17/2025 to 02/22/2025 for sepsis secondary to a UTI, acute on chronic kidney failure, and kidney stone with subsequent moderate hydronephrosis. He had a right ureteral stent placed on 02/19/2025. Stent was removed on 03/09/2025 at [facility]. 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 Patient denies flank pain, hematuria, or dysuria. Arrived with fever of 102.6 ? F. Reporting he developed fever and chills yesterday on 03/09. Initial VS at presentation: 102.6? F, HR 109, R 22, 147/53, and 100% on RA. 03/10 Labs: K 5.6, creatinine 4.7, BUN 54, GFR 12, glucose 125. 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 Code status: Full code. Smoking status: Never smoker Second hand tobacco smoke exposure: No Alcohol intake: current Drinks per week: 2 Substance use: never Substance use type: does not use Do You Feel Safe in your Home?: Yes Lack of Transportation: No Lack of Food: Never True Current Housing: I Have Housing Concerned About Future Housing: No Difficulty Paying Gas/Electric Bills: No Difficulty Paying for Meds: No Currently Unemployed: No Education: Don't Know Difficulty w/ Childcare or Family Care: No Living arrangements: with family Additional living arrangements comments: Lives with spouse in [place]. 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: No Meds Home Medications and Allergies Home Medications ?Medication ?Instructions ?Recorded ?Confirmed ?Type amlodipine 10 mg tablet 10 mg PO DAILY 11/28/19 03/10/25 History atorvastatin 20 mg tablet 20 mg PO DAILY 11/28/19 03/10/25 History irbesartan 75 mg tablet 75 mg PO DAILY 11/28/19 03/10/25 History magnesium chloride 71.5 mg 71.5 mg PO DAILY 11/28/19 03/10/25 History (magnesium chloride) tablet,delayed release (Nu-Mag) omeprazole 20 mg capsule,delayed 20 mg PO DAILY 11/28/19 03/10/25 History release ropinirole 3 mg tablet 3 mg PO HS 11/28/19 03/10/25 History sitagliptin phosphate 50 mg tablet 50 mg PO DAILY 11/28/19 03/10/25 History (Januvia) cholecalciferol (vitamin D3) 25 25 mcg PO DAILY 02/18/25 03/10/25 History mcg (1,000 unit) capsule cyanocobalamin (vitamin B-12) 2,000 mcg PO DAILY 02/18/25 03/10/25 History 1,000 mcg capsule loperamide 2 mg capsule 4 mg PO BID 02/27/25 03/10/25 History (Anti-Diarrheal (loperamide)) Allergies Allergy/AdvReac Type Severity Reaction Status Date / Time No Known Allergies Allergy Verified 03/10/25 13:48 Vital Signs Vital Signs - 24 hr 03/10/25 13:49 03/10/25 15:57 03/10/25 16:10 Temperature 102.6 F H 99.3 F Pulse Rate 109 H 67 78 Respiratory Rate 22 H 17 Blood Pressure 147/53 H 109/50 L 97/54 L Pulse Oximetry 100 96 98 Oxygen Delivery Room Air Simple Face Mask Simple Face Mask Oxygen Flow Rate 10 10 03/10/25 16:25 03/10/25 16:40 03/10/25 16:55 Temperature Pulse Rate 76 78 74 Respiratory Rate 22 H 22 H 24 H Blood Pressure 117/53 L 113/64 104/52 L Pulse Oximetry 96 94 94 Oxygen Delivery Room Air Room Air Room Air Oxygen Flow Rate Exam 2 Const: General: comfortable and no acute distress Other: , male, ill-appearing, elderly HENMT: Face/Nose/Sinus: Normal nares present Mouth: Yes moist mucous membranes Eyes: General: appearance normal, both eyes and all related structures S clera: sclerae normal Pupils: Equal, round and reactive pupils present E OM: EOMs intact bilaterally Resp: Effort & Inspection: normal respiratory effort Auscultation: clear to auscultation bilaterally Cardio: Rate: regular rate Rhythm: regular rhythm Other: S1-S2 present without murmur, rub, ectopy GI: Other: Abdomen soft, nondistended, nontender. Normoactive bowel sounds in all quadrants. Skin: General skin exam: normal color and no rashes or lesions noted W ounds: no wounds Other: Feverish to the touch. Neuro: Speech: normal speech Motor exam (neuro): 5/5 motor strength present throughout Sensory Exam: normal sensation Other: A&O x4 Extrem: General: normal to inspection Psych: Mental Status: mental status grossly normal Affect: normal affect Other: Good insight and judgment, pleasant Results Labs 03/10/25 19:26 03/10/25 20:57 Quality VTE Prophylaxis VTE prophylaxis: mechanical ordered Hospitalist [facility] Advance Care Plan I have confirmed that the patient's Advanced Care Plan is present, code status is documented, or surrogate decision maker is listed in patient medical record.: Yes Medication Reconciliation I have utilized all available resources to obtain, update and review the patients current medications (includes all prescriptions, OTC, herbals, cannabis, and nutritional supplements).: Yes
[2025-03-10 19:35] LABS: Hematocrit 24.8 % (42.0-52.0); Hemoglobin 7.5 g/dL (14.0-18.0); Immature Platelet Fraction Pct 1.5 % (0.9-11.2); Mean Corpuscular HGB Conc 30.2 g/dl (32-36); Mean Corpuscular Hemoglobin 29.4 pg (26-34); Mean Corpuscular Volume 97.3 fl (80-100); Mean Platelet Volume 10.3 fl (7.4-10.4); Red Blood Count 2.55 M/mm3 (4.6-6.20); Red Cell Distribution Width 14.8 % (11.5-14.5)
[2025-03-10 19:48] LABS: Lactic Acid Reflex 1.3 mmol/L (0.7-2.0)
[2025-03-10 19:55] LABS: Platelet Count Result 98 k/mm3 (150-375)
[2025-03-10 20:00] LABS: Anisocytosis 1+; Band Neutrophils Percent 2 % (0-6); Lymphocytes Absolute Manual 0.36 K/mm3 (1.1-4.5); Monocytes Absolute Manual 0.36 K/mm3 (0.1-0.90); Monocytes Percent Manual 3 % (3-9); Neutrophils Absolute Manual 11.28 K/mm3 (1.3-6.7); Neutrophils Percent Manual 92 % (46-73); Platelet Estimate Decreased (Adequate); Schistocytes None Seen; Total Cells Counted 100
[2025-03-10 20:07] LABS: Procalcitonin 17.7 ng/mL
[2025-03-10] MEDS: SODIUM BICARBONATE 8.4% 50 MEQ/50 ML SYRINGE IV PUSH (20:14)
[2025-03-10] MEDS: rOPINIRole HCL 1 MG TABLET 3 MG PO (20:19)
[2025-03-10] MEDS: LACTATED RINGERS 1,000 ML 999 ML IV CONT ×2 (20:19→23:04)
[2025-03-10] MEDS: SODIUM ZIRCONIUM CYCLOSILICATE 10 GM POWD.PACK PO (20:19)
[2025-03-10] MEDS: CALCIUM GLUC 1,000 MG/NS 50 ML 1,000 MG/50 ML BAG 100 MG IVPB (20:20)
[2025-03-10 21:12] LABS: Anion Gap 13 mmol/L (4-12); Blood Urea Nitrogen 55 mg/dL (9-20); Calcium 8.7 mg/dL (8.4-10.2); Carbon Dioxide 15 mmol/L (22-30); Chloride 110 mmol/L (98-107); Estimated CRCL calculation 13 ml/min; Estimated Glomerular Filt Rate 12; Glucose 168 mg/dL (65-110); Potassium 5.4 mmol/L (3.4-5.0); Sodium 138 mmol/L (137-145)
[2025-03-10 22:27] LABS: Glucose Point of Care 143 mg/dl (65-105)
[2025-03-10] MEDS: LACTATED RINGERS 200 ML 999 ML IV CONT (23:05)
[2025-03-10] MEDS: ALBUTEROL SULFATE NEB 2.5 MG/3 ML INH INHALATION (23:46)
[2025-03-11] VITALS (11 sets, daily range): BP systolic 104–141; BP diastolic 60–76; PULSE 72–100; RESP 16–20; TEMP 36.8–38.8; O2SAT 93–100
[2025-03-11] MEDS: DEXTROSE 50% 25 GM/50 ML SYRINGE IV PUSH (00:51)
[2025-03-11] MEDS: CALCIUM GLUC 1,000 MG/NS 50 ML 1,000 MG/50 ML BAG 100 MG IVPB (00:53)
[2025-03-11] MEDS: SODIUM POLYSTYRENE SULFONONATE 15 GM/60 ML BTL 30 GM PO (00:53)
[2025-03-11] MEDS: INSULIN HUMAN REGULAR (*BKC) 100 UNITS/ML 10 UNITS IV PUSH (01:11)
[2025-03-11] MEDS: ACETAMINOPHEN 325 MG TABLET 650 MG PO ×2 (01:12→09:51)
[2025-03-11] MEDS: DEXTROSE 5%/0.9% SOD CHL 1,000 ML 125 ML IV CONT ×2 (01:13→16:54)
[2025-03-11 04:28] LABS: Hematocrit 22.6 % (42.0-52.0); Immature Platelet Fraction Pct 1.5 % (0.9-11.2); Mean Corpuscular HGB Conc 30.5 g/dl (32-36); Mean Corpuscular Hemoglobin 29.2 pg (26-34); Mean Corpuscular Volume 95.8 fl (80-100); Mean Platelet Volume 10.6 fl (7.4-10.4); Red Blood Count 2.36 M/mm3 (4.6-6.20); Red Cell Distribution Width 14.8 % (11.5-14.5)
[2025-03-11 04:30] LABS: Platelet Count Result 90 k/mm3 (150-375)
[2025-03-11 04:31] LABS: Hemoglobin 6.9 g/dL (14.0-18.0)
[2025-03-11 04:43] LABS: Anion Gap 14 mmol/L (4-12); Blood Urea Nitrogen 51 mg/dL (9-20); Calcium 8.5 mg/dL (8.4-10.2); Carbon Dioxide 12 mmol/L (22-30); Chloride 111 mmol/L (98-107); Estimated CRCL calculation 13 ml/min; Estimated Glomerular Filt Rate 13; Glucose 111 mg/dL (65-110); Potassium 4.3 mmol/L (3.4-5.0); Sodium 137 mmol/L (137-145)
[2025-03-11 04:50] LABS: Anisocytosis 1+; Band Neutrophils Percent 1 % (0-6); Eosinophils Absolute Manual 0.12 K/mm3 (0.02-0.50); Eosinophils Percent Manual 1 % (0-4); Lymphocytes Absolute Manual 0.36 K/mm3 (1.1-4.5); Monocytes Absolute Manual 0.24 K/mm3 (0.1-0.90); Monocytes Percent Manual 2 % (3-9); Neutrophils Absolute Manual 11.28 K/mm3 (1.3-6.7); Neutrophils Percent Manual 93 % (46-73); Platelet Estimate Decreased (Adequate); Total Cells Counted 100
[2025-03-11 04:51] LABS: Hypochromasia 1+; Microcytosis 1+ (NORMAL); Ovalocytes 1+; Schistocytes None Seen; Smudge Cells PRESENT
[2025-03-11] MEDS: oxyCODONE HCL (*CRX) 5 MG TAB IR PO (05:11)
[2025-03-11] MEDS: SODIUM CHLORIDE 0.9% IV 250 ML 30 ML IV CONT (05:13)
[2025-03-11 05:48] LABS: Add Urine Microscopic? YES; Appearance Urine Turbid (Clear); Bacteria Urine None Seen /hpf; Bilirubin Urine Negative (Negative); Blood Urine 3+ (Negative); Color Urine Red (Yellow); Glucose Urine UA Negative (Negative); Ketones Urine Negative (Negative); Leukocyte Esterase Ur 3+ LEU/UL (Negative); Mucus Urine Present /lpf; Need Manual Microscopic Reviewed; Nitrate Urine Negative (Negative); Non Pathogenic Casts 0-2; Protein Urine 3+ mg/dL (Negative); RBC Urine >100 /hpf (0-2); Specific Grav Ur 1.009 (1.001-1.035); Squamous Epithelial Cell Urine Few /hpf (Few); Urobilinogen Urine 0.2 mg/dL (<2.0); WBC Urine >100 /hpf (0-3)
[2025-03-11 08:15] LABS: Glucose Point of Care 122 mg/dl (65-105)
[2025-03-11] MEDS: ATORVASTATIN 20 MG TABLET PO (09:50)
[2025-03-11] MEDS: PANTOPRAZOLE 40 MG TABLET PO (09:51)
[2025-03-11] MEDS: LOPERAMIDE HCL 2 MG CAPSULE 4 MG PO ×2 (09:51→16:55)
[2025-03-11] MEDS: SITagliptin PHOSPHATE 50 MG TABLET PO (09:51)
[2025-03-11 12:14] LABS: Glucose Point of Care 116 mg/dl (65-105)
[2025-03-11 12:14] LABS: Hematocrit 24.7 % (42.0-52.0); Hemoglobin 7.8 g/dL (14.0-18.0)
--- NOTE | 2025-03-11 12:47 | P.PNUR_ITS ---
Progress Note: A&P Assessment and Plan (1) Acute on chronic kidney failure: Qualifiers: Acute renal failure type: unspecified Chronic kidney disease stage: unspecified stage Qualified Code(s): N17.9 - Acute kidney failure, unspecified; N18.9 - Chronic kidney disease, unspecified Code(s): N17.9 - Acute kidney failure, unspecified; N18.9 - Chronic kidney disease, unsp ecified Status: Acute (2) Sepsis: Qualifiers: Sepsis type: sepsis due to unspecified organism Sepsis acute organ dysfunction status: with acute organ dysfunction Severe sepsis acute organ dysfunction type: acute renal failure Acute renal failure type: unspecified Severe sepsis shock status: without septic shock Qualified Code(s): A41.9 - Sepsis, unspecified organism; R65.20 - Severe sepsis without septic shock; N17.9 - Acute kidney failure, unspecified Code(s): A41.9 - Sepsis, unspecified organism Status: Acute (3) Acute renal failure: Code(s): N17.9 - Acute kidney failure, unspecified Status: Acute Plan 1. Continue Uriarte. 2. Daily labs. 3. Add heparin DVT ppx 5,000 sq q12hr. Ambulate ad [place]. SCDs. 4. Continue Rocephin, tailor to C&S. 5. Appreciate Hospital Medicine recommendations. Diabetes and hyperkalemia mgmt noted and appreciated. Subjective Subjective Date/Time Seen: 03/11/25 12:47 Interval history: NAEO, patient reports he is feeling better. Repeat H&H improved to 7.8 Cr has downtrended slightly with excellent UOP 1.5 mL/Kg/Hr. Exam Narrative: NAD, A&Ox3 RRR eWOB S/NT/ND Urine in [facility] is pale yellow. Objective Data Vital Signs Vital Signs: Vital Signs - 24 hr 03/10/25 13:49 03/10/25 15:57 03/10/25 16:10 Temperature 102.6 F H 99.3 F Pulse Rate 109 H 67 78 Respiratory Rate 22 H 17 Blood Pressure 147/53 H 109/50 L 97/54 L Pulse Oximetry 100 96 98 Oxygen Delivery Room Air Simple Face Mask Simple Face Mask Oxygen Flow Rate 10 10 03/10/25 16:25 03/10/25 16:40 03/10/25 16:55 Temperature Pulse Rate 76 78 74 Respiratory Rate 22 H 22 H 24 H Blood Pressure 117/53 L 113/64 104/52 L Pulse Oximetry 96 94 94 Oxygen Delivery Room Air Room Air Room Air Oxygen Flow Rate 03/10/25 20:00 03/10/25 20:56 03/10/25 23:48 Temperature 100.8 F H Pulse Rate 88 88 89 Respiratory Rate 16 16 20 Blood Pressure 149/63 H Pulse Oximetry 95 95 Oxygen Delivery Room Air Oxygen Flow Rate 03/10/25 23:53 03/11/25 00:56 03/11/25 01:12 Temperature 102 F H 102 F H Pulse Rate 93 100 Respiratory Rate 20 18 Blood Pressure 140/60 Pulse Oximetry 93 Oxygen Delivery Oxygen Flow Rate 03/11/25 04:56 03/11/25 06:47 03/11/25 07:09 Temperature 98.4 F 99 F 98.2 F Pulse Rate 84 80 77 Respiratory Rate 18 16 16 Blood Pressure 141/68 H 115/61 121/60 Pulse Oximetry 95 95 95 Oxygen Delivery Oxygen Flow Rate 03/11/25 08:56 03/11/25 10:54 Temperature 98.3 F 98.9 F Pulse Rate 77 77 Respiratory Rate 20 18 Blood Pressure 122/63 110/65 Pulse Oximetry 96 100 Oxygen Delivery Oxygen Flow Rate Intake/Output Intake/Output: Intake & Output 03/08/25 03/09/25 03/10/25 03/11/25 23:59 23:59 23:59 23:59 Intake Total 1600 3790 Output Total 850 3360 Balance 750 430 Meds/Results Medications: Active Medications Generic Name Dose Route Start Last Admin Trade Name Freq PRN Reason Stop Dose Admin Acetaminophen 650 mg 03/10/25 15:26 03/11/25 09:51 Acetaminophen 325 Mg Tablet PO 650 mg Q4H PRN Administration Mild Pain (1-3) or Fever Amlodipine Besylate 10 mg 03/11/25 09:00 Amlodipine Besylate 10 Mg Tablet PO DAILY KIRSTEN Atorvastatin Calcium 20 mg 03/11/25 09:00 03/11/25 09:50 Atorvastatin 20 Mg Tablet PO 20 mg DAILY KIRSTEN Administration Dextrose 12.5 gm 03/10/25 15:32 Dextrose 50% 25 Gm/50 Ml Syringe IV PUSH PRN PRN Hypoglycemia Protocol Fentanyl Citrate 25 mcg 03/10/25 13:51 Fentanyl Citrate Inj (*Crx) 100 Mcg/2 Ml Vial IV PUSH Q2M PRN Pain Glucagon 1 mg 03/10/25 15:32 Glucagon For Inj 1 Mg Vial IM PRN PRN Hypoglycemia Protocol Glucose 15 gm 03/10/25 15:32 Glucose Oral Gel 15 Gm Of Glucse In 37.5 Gm Tube PO PRN PRN Hypoglycemia Protocol Dextrose/Sodium Chloride 1,000 mls @ 125 mls/hr 03/10/25 15:30 03/11/25 01:13 Dextrose 5% Sodium Chloride 0.9% IV CONT 125 mls/hr .Q8H KIRSTEN Administration Dextrose 1,000 mls @ 100 mls/hr 03/10/25 15:32 Dextrose 5% 1,000 Ml IVPB PRN PRN Hypoglycemia Protocol Ceftriaxone Sodium 1 gm in 50 mls @ 100 mls/hr 03/11/25 16:00 Rocephin 1 Gm/Ns 50 Ml IVPB Q24H KIRSTEN Sodium Chloride 250 mls @ 30 mls/hr 03/11/25 04:49 03/11/25 10:59 Normal Saline Iv IV CONT 03/11/25 13:08 Infused .Q8H20M STA Infusion Irbesartan 75 mg 03/11/25 09:00 Irbesartan 75 Mg Tablet PO DAILY KIRSTEN Loperamide HCl 4 mg 03/10/25 17:00 03/11/25 09:51 Loperamide Hcl 2 Mg Capsule PO 4 mg BID KIRSTEN Administration Ondansetron HCl 4 mg 03/10/25 13:51 Ondansetron Inj 4 Mg/2 Ml Vial IV PUSH ONCE PRN Nausea Ondansetron HCl 4 mg 03/10/25 15:26 Ondansetron Inj 4 Mg/2 Ml Vial IV PUSH Q6H PRN Nausea And Vomiting Oxycodone HCl 5 mg 03/10/25 13:51 03/11/25 05:11 Oxycodone Hcl (*Crx) 5 Mg Tab Ir PO 5 mg ONCE PRN Administration Pain Pantoprazole Sodium 40 mg 03/11/25 09:00 03/11/25 09:51 Pantoprazole 40 Mg Tablet PO 40 mg QAM KIRSTEN Administration Ropinirole HCl 3 mg 03/10/25 21:00 03/10/25 20:19 Ropinirole Hcl 1 Mg Tablet PO 3 mg HS KIRSTEN Administration Sitagliptin Phosphate 50 mg 03/11/25 09:00 03/11/25 09:51 Sitagliptin Phosphate 50 Mg Tablet PO 50 mg DAILY KIRSTEN Administration Radiology Results: ITS Impressions Retrograde Pyelogram 03/10/25 16:15 IMPRESSION: 1. Fluoroscopy utilized during right intrarenal stent placement which is in expected position. See procedure note for further detail. Labs Labs: Laboratory Results - last 24 hr 03/10/25 03/10/25 03/10/25 14:00 16:29 19:26 WBC 12.0 H RBC 2.55 L Hgb 7.5 L Hct 24.8 L MCV 97.3 MCH 29.4 MCHC 30.2 L RDW 14.8 H Plt Count 98 L MPV 10.3 Immature Gran % (Auto) Not Reportable Neut % (Auto) Not Reportable Lymph % (Auto) Not Reportable [place] % (Auto) Not Reportable Eos % (Auto) Not Reportable Baso % (Auto) Not Reportable Lymph # (Auto) Not Reportable [place] # (Auto) Not Reportable Eos # (Auto) Not Reportable Baso # (Auto) Not Reportable Abs Immat Gran (auto) Not Reportable Absolute Neuts (auto) Not Reportable Absolute Nucleated RBC Not Reportable Total Counted 100 Neutrophils % (Manual) 92 H Band Neutrophils % 2 Lymphocytes % (Manual) 3.0 L Monocytes % (Manual) 3 Eosinophils % (Manual) Nucleated RBC % Not Reportable Abs Neuts (Manual) 11.28 H Abs Lymphs (Manual) 0.36 L Abs Monocytes (Manual) 0.36 Absolute Eos (Manual) Smudge Cells Platelet Estimate Decreased % Immature Plt Fraction 1.5 Hypochromasia Anisocytosis 1+ Microcytosis Ovalocytes Schistocytes None seen Sodium Potassium Chloride Carbon Dioxide Anion Gap BUN Creatinine Estim Creat Clear Calc Estimated GFR Glucose POC Capillary Glucose 119 H 113 H Lactic Acid 1.3 Calcium Procalcitonin 17.7 Urine Color Urine Appearance Urine pH Ur Specific [place] Urine Protein Urine Glucose (UA) Urine Ketones Ur Blood (Man) Urine Nitrate Urine Bilirubin Urine Urobilinogen Ur Leukocyte Esterase Add Ur Microanalysis Urine RBC Urine WBC Ur Squamous Epith Cells Urine Bacteria Urine Casts Urine Mucus Blood Type Antibody Screen Crossmatch 03/10/25 03/10/25 03/11/25 20:57 21:13 04:20 WBC 12.0 H RBC 2.36 L Hgb 6.9 L* Hct 22.6 L MCV 95.8 MCH 29.2 MCHC 30.5 L RDW 14.8 H Plt Count 90 L MPV 10.6 H Immature Gran % (Auto) Not Reportable Neut % (Auto) Not Reportable Lymph % (Auto) Not Reportable [place] % (Auto) Not Reportable Eos % (Auto) Not Reportable Baso % (Auto) Not Reportable Lymph # (Auto) Not Reportable [place] # (Auto) Not Reportable Eos # (Auto) Not Reportable Baso # (Auto) Not Reportable Abs Immat Gran (auto) Not Reportable Absolute Neuts (auto) Not Reportable Absolute Nucleated RBC Not Reportable Total Counted 100 Neutrophils % (Manual) 93 H Band Neutrophils % 1 Lymphocytes % (Manual) 3.0 L Monocytes % (Manual) 2 L Eosinophils % (Manual) 1 Nucleated RBC % Not Reportable Abs Neuts (Manual) 11.28 H Abs Lymphs (Manual) 0.36 L Abs Monocytes (Manual) 0.24 Absolute Eos (Manual) 0.12 Smudge Cells Present Platelet Estimate Decreased % Immature Plt Fraction 1.5 Hypochromasia 1+ Anisocytosis 1+ Microcytosis 1+ Ovalocytes 1+ Schistocytes None seen Sodium 138 137 Potassium 5.4 H 4.3 Chloride 110 H 111 H Carbon Dioxide 15 L 12 L Anion Gap 13 H 14 H BUN 55 H 51 H Creatinine 4.76 H 4.60 H Estim Creat Clear Calc 13 13 Estimated GFR 12 L 13 L Glucose 168 H 111 H POC Capillary Glucose 143 H Lactic Acid Calcium 8.7 8.5 Procalcitonin Urine Color Urine Appearance Urine pH Ur Specific [place] Urine Protein Urine Glucose (UA) Urine Ketones Ur Blood (Man) Urine Nitrate Urine Bilirubin Urine Urobilinogen Ur Leukocyte Esterase Add Ur Microanalysis Urine RBC Urine WBC Ur Squamous Epith Cells Urine Bacteria Urine Casts Urine Mucus Blood Type Antibody Screen Crossmatch 03/11/25 03/11/25 03/11/25 05:14 05:28 08:13 WBC RBC Hgb Hct MCV MCH MCHC RDW Plt Count MPV Immature Gran % (Auto) Neut % (Auto) Lymph % (Auto) [place] % (Auto) Eos % (Auto) Baso % (Auto) Lymph # (Auto) [place] # (Auto) Eos # (Auto) Baso # (Auto) Abs Immat Gran (auto) Absolute Neuts (auto) Absolute Nucleated RBC Total Counted Neutrophils % (Manual) Band Neutrophils % Lymphocytes % (Manual) Monocytes % (Manual) Eosinophils % (Manual) Nucleated RBC % Abs Neuts (Manual) Abs Lymphs (Manual) Abs Monocytes (Manual) Absolute Eos (Manual) Smudge Cells Platelet Estimate % Immature Plt Fraction Hypochromasia Anisocytosis Microcytosis Ovalocytes Schistocytes Sodium Potassium Chloride Carbon Dioxide Anion Gap BUN Creatinine Estim Creat Clear Calc Estimated GFR Glucose POC Capillary Glucose 122 H Lactic Acid Calcium Procalcitonin Urine Color Red H Urine Appearance Turbid H Urine pH 5.0 Ur Specific [place] 1.009 Urine Protein 3+ H Urine Glucose (UA) Negative Urine Ketones Negative Ur Blood (Man) 3+ H Urine Nitrate Negative Urine Bilirubin Negative Urine Urobilinogen 0.2 Ur Leukocyte Esterase 3+ H Add Ur Microanalysis Reviewed Urine RBC >100 H Urine WBC >100 H Ur Squamous Epith Cells Few Urine Bacteria None seen Urine Casts 0-2 Urine Mucus Present Blood Type A Positive Antibody Screen Negative Crossmatch See Detail 03/11/25 03/11/25 12:02 12:07 WBC RBC Hgb 7.8 L Hct 24.7 L MCV MCH MCHC RDW Plt Count MPV Immature Gran % (Auto) Neut % (Auto) Lymph % (Auto) [place] % (Auto) Eos % (Auto) Baso % (Auto) Lymph # (Auto) [place] # (Auto) Eos # (Auto) Baso # (Auto) Abs Immat Gran (auto) Absolute Neuts (auto) Absolute Nucleated RBC Total Counted Neutrophils % (Manual) Band Neutrophils % Lymphocytes % (Manual) Monocytes % (Manual) Eosinophils % (Manual) Nucleated RBC % Abs Neuts (Manual) Abs Lymphs (Manual) Abs Monocytes (Manual) Absolute Eos (Manual) Smudge Cells Platelet Estimate % Immature Plt Fraction Hypochromasia Anisocytosis Microcytosis Ovalocytes Schistocytes Sodium Potassium Chloride Carbon Dioxide Anion Gap BUN Creatinine Estim Creat Clear Calc Estimated GFR Glucose POC Capillary Glucose 116 H Lactic Acid Calcium Procalcitonin Urine Color Urine Appearance Urine pH Ur Specific [place] Urine Protein Urine Glucose (UA) Urine Ketones Ur Blood (Man) Urine Nitrate Urine Bilirubin Urine Urobilinogen Ur Leukocyte Esterase Add Ur Microanalysis Urine RBC Urine WBC Ur Squamous Epith Cells Urine Bacteria Urine Casts Urine Mucus Blood Type Antibody Screen Crossmatch
--- NOTE | 2025-03-11 15:16 | P.PNIM_ITS ---
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 Several weeks ago he had developed right pyelonephritis. Dr. Gallo placed a right ureteral stent. At the time he noticed a patulous ureteral orifice and hydronephrosis to a narrowing in the right distal ureter. Patient had underwent a the stent removal of ureter stent the day prior but then developed worsening renal function and became febrile after procedure. Patient was then taken for a cysto with ureteral stent placement * Serial labs to monitor renal function starting to downtrend * Flush sams BID and as needed * add an antispasmodic (2) Sepsis: Qualifiers: Sepsis type: sepsis due to unspecified organism Sepsis acute organ dysfunction status: with acute organ dysfunction Severe sepsis acute organ dysfunction type: acute renal failure Acute renal failure type: unspecified Severe sepsis shock status: without septic shock Qualified Code(s): A41.9 - Sepsis, unspecified organism; R65.20 - Severe sepsis without septic shock; N17.9 - Acute kidney failure, unspecified Code(s): A41.9 - Sepsis, unspecified organism Status: Acute Assessment and Plan: HR, temp. Check CBC, lactic acid, and procalcitonin. Sepsis bolus ordered: 2.1L of LR. Suspected source - urine, recent UTI and kidney stones with stent placement. Check UA and urine culture. Started on ceftriaxone on 03/10. Recent bacteremia, blood culture that were drawn on 02/17/2025 grew E coli 2/2 that was resistant to Bactrim and intermediate to Cipro and Levaquin. Blood cultures redrawn on 03/10, follow. Currently UA still pending and blood cultures NGTD x 24 hours. No further fever post-op * Serial labs (3) Acute on chronic kidney failure: Qualifiers: Acute renal failure type: unspecified Chronic kidney disease stage: unspecified stage Qualified Code(s): N17.9 - Acute kidney failure, unspecified; N18.9 - Chronic kidney disease, unspecified Code(s): N17.9 - Acute kidney failure, unspecified; N18.9 - Chronic kidney disease, unspecified Status: Acute Assessment and Plan: Right ureteral stent removed on 03/09. Renal function on admission 3.01, BUN 47, GFR 20. Repeat showed 4.7, BUN 54, GFR 12 prior to surgery, Urology prim [facility]. Plan for replacement of right stent 03/10/2025. Presumed infectious urine, check UA. UC pending, follow. Started on ceftriaxone on 03/10. Most recent urine culture from 02/17/2025 grew E coli that is resistant to Bactrim and intermediate to Cipro and Levaquin. Analgesics and antiemetics p.r.n..IV Fluids received 2L in the ED maintenance fluids until surgery discontinued at this time. * Avoid nephrotoxic drugs. * Avoid NSAIDs. * Routine CMP monitoring GFR. * Monitor electrolytes especially potassium. (4) Hypertension: Qualifiers: Hypertension type: primary hypertension Qualified Code(s): I10 - Essential (primary) hypertension Code(s): I10 - Essential (primary) hypertension Status: Chronic Assessment and Plan: Chronic, currently 104/52. Intermittently soft since arrival. Will hold amlodipine and irbesartan, resume when BP can tolerate. * Reviewed continue to hold medication (5) Acute hyperkalemia: Code(s): E87.5 - Hyperkalemia Status: Resolved Assessment and Plan: K 5.6. Will treat with Lokelma x1 and sodium bicarbonate. Recheck this evening -> 5.4. Re-dose with calcium, insulin/dextrose, Kayexalate, and albuterol. Monitor. 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 Post procedure patient Hgb dropped to 6.9 transfused 1 unit PRBC, F/U Hgb 7.8. He has been having hematuria post procedure which could be another secondary cause. * Hold Heparin DVT prophylaxis for now * Monitor H&H Q6hr * Transfuse PRBC if Hgb <7.0 Plan Code status: Full code per patient DVT prophylaxis: SCD Dictation performed by [employer] direct speech recognition software, therefore medical voucher clerk variants and typographical errors may occur. Time Spent With Patient Time with patient: 15 - 25 minutes Subjective Date/time seen: 03/11/25 15:16 Interval history: Patient is a 74-year-old male admitted for treatment sepsis secondary to right hydronephrosis. who underwent a Cystoscopy, right retrograde pyelography, right ureteral stent placement. 03/11/2025: Patient in no acute distress. Reported he had some urinary discomfort and no urine in the sams but once nurse flushed sams catheter problems resolved there was noted blood clots with hematuria expected after cystoscopy. Patient's HGB 6.9 transfused 1 unit PRBCs. Denies CP, SOB,N/V, fever or chills. Review of Systems Review of Systems: All systems reviewed & are unremarkable except as noted in HPI and below Exam Const: General: comfortable and no acute distress Other: Pleasant male HENMT: Mouth: Yes moist mucous membranes Eyes: General: appearance normal, both eyes and all related structures Pupils: Equal, round and reactive pupils present Neck: Neck: supple Resp: Effort & Inspection: normal respiratory effort Auscultation: clear to auscultation bilaterally Cardio: Rate: regular rate Rhythm: regular rhythm Other: S1-S2 present without murmur, rub, ectopy GI: Other: Abdomen soft, nondistended, nontender. Normoactive bowel sounds in all quadrants. Urinary Catheter: Urinary Catheter: patent and draining and urine pink (scant clots) Skin: General skin exam: normal color and no rashes or lesions noted Wounds: no wounds Other: Feverish to the touch. Neuro: Cranial nerves: Yes Equal, round and reactive pupils present Speech: normal speech Motor exam (neuro): 5/5 motor strength present throughout Sensory Exam: normal sensation Other: A&O x4 Extrem: General: normal to inspection Psych: Mental Status: mental status grossly normal Affect: normal affect Objective Data Vital Signs Vital Signs: Vital Signs - 24 hr 03/10/25 15:57 03/10/25 16:10 03/10/25 16:25 Temperature 99.3 F Pulse Rate 67 78 76 Respiratory Rate 22 H 17 22 H Blood Pressure 109/50 L 97/54 L 117/53 L Pulse Oximetry 96 98 96 Oxygen Delivery Simple Face Mask Simple Face Mask Room Air Oxygen Flow Rate 10 10 03/10/25 16:40 03/10/25 16:55 03/10/25 20:00 Temperature Pulse Rate 78 74 88 Respiratory Rate 22 H 24 H 16 Blood Pressure 113/64 104/52 L Pulse Oximetry 94 94 95 Oxygen Delivery Room Air Room Air Room Air Oxygen Flow Rate 03/10/25 20:56 03/10/25 23:48 03/10/25 23:53 Temperature 100.8 F H Pulse Rate 88 89 93 Respiratory Rate 16 20 20 Blood Pressure 149/63 H Pulse Oximetry 95 Oxygen Delivery Oxygen Flow Rate 03/11/25 00:56 03/11/25 01:12 03/11/25 04:56 Temperature 102 F H 102 F H 98.4 F Pulse Rate 100 84 Respiratory Rate 18 18 Blood Pressure 140/60 141/68 H Pulse Oximetry 93 95 Oxygen Delivery Oxygen Flow Rate 03/11/25 06:47 03/11/25 07:09 03/11/25 08:56 Temperature 99 F 98.2 F 98.3 F Pulse Rate 80 77 77 Respiratory Rate 16 16 20 Blood Pressure 115/61 121/60 122/63 Pulse Oximetry 95 95 96 Oxygen Delivery Oxygen Flow Rate 03/11/25 10:54 03/11/25 12:56 03/11/25 14:00 Temperature 98.9 F 98.4 F 98.5 F Pulse Rate 77 72 76 Respiratory Rate 18 20 18 Blood Pressure 110/65 104/68 110/72 Pulse Oximetry 100 96 98 Oxygen Delivery Oxygen Flow Rate Intake/Output Intake/Output: Intake & Output 03/08/25 03/09/25 03/10/25 03/11/25 23:59 23:59 23:59 23:59 Intake Total 1600 4270 Output Total 850 3360 Balance 750 910 Meds/Results Medications: Active Medications Generic Name Dose Route Start Last Admin Trade Name Freq PRN Reason Stop Dose Admin Acetaminophen 650 mg 03/10/25 15:26 03/11/25 09:51 Acetaminophen 325 Mg Tablet PO 650 mg Q4H PRN Administration Mild Pain (1-3) or Fever Amlodipine Besylate 10 mg 03/11/25 09:00 Amlodipine Besylate 10 Mg Tablet PO DAILY KIRSTEN Atorvastatin Calcium 20 mg 03/11/25 09:00 03/11/25 09:50 Atorvastatin 20 Mg Tablet PO 20 mg DAILY KIRSTEN Administration Dextrose 12.5 gm 03/10/25 15:32 Dextrose 50% 25 Gm/50 Ml Syringe IV PUSH PRN PRN Hypoglycemia Protocol Fentanyl Citrate 25 mcg 03/10/25 13:51 Fentanyl Citrate Inj (*Crx) 100 Mcg/2 Ml Vial IV PUSH Q2M PRN Pain Glucagon 1 mg 03/10/25 15:32 Glucagon For Inj 1 Mg Vial IM PRN PRN Hypoglycemia Protocol Glucose 15 gm 03/10/25 15:32 Glucose Oral Gel 15 Gm Of Glucse In 37.5 Gm Tube PO PRN PRN Hypoglycemia Protocol Dextrose/Sodium Chloride 1,000 mls @ 125 mls/hr 03/10/25 15:30 03/11/25 01:13 Dextrose 5% Sodium Chloride 0.9% IV CONT 125 mls/hr .Q8H KIRSTEN Administration Dextrose 1,000 mls @ 100 mls/hr 03/10/25 15:32 Dextrose 5% 1,000 Ml IVPB PRN PRN Hypoglycemia Protocol Ceftriaxone Sodium 1 gm in 50 mls @ 100 mls/hr 03/11/25 16:00 Rocephin 1 Gm/Ns 50 Ml IVPB Q24H KIRSTEN Irbesartan 75 mg 03/11/25 09:00 Irbesartan 75 Mg Tablet PO DAILY KIRSTEN Loperamide HCl 4 mg 03/10/25 17:00 03/11/25 09:51 Loperamide Hcl 2 Mg Capsule PO 4 mg BID KIRSTEN Administration Ondansetron HCl 4 mg 03/10/25 13:51 Ondansetron Inj 4 Mg/2 Ml Vial IV PUSH ONCE PRN Nausea Ondansetron HCl 4 mg 03/10/25 15:26 Ondansetron Inj 4 Mg/2 Ml Vial IV PUSH Q6H PRN Nausea And Vomiting Oxycodone HCl 5 mg 03/10/25 13:51 03/11/25 05:11 Oxycodone Hcl (*Crx) 5 Mg Tab Ir PO 5 mg ONCE PRN Administration Pain Pantoprazole Sodium 40 mg 03/11/25 09:00 03/11/25 09:51 Pantoprazole 40 Mg Tablet PO 40 mg QAM KIRSTEN Administration Ropinirole HCl 3 mg 03/10/25 21:00 03/10/25 20:19 Ropinirole Hcl 1 Mg Tablet PO 3 mg HS KIRSTEN Administration Sitagliptin Phosphate 50 mg 03/11/25 09:00 03/11/25 09:51 Sitagliptin Phosphate 50 Mg Tablet PO 50 mg DAILY KIRSTEN Administration Radiology Results: ITS Impressions Retrograde Pyelogram 03/10/25 16:15 IMPRESSION: 1. Fluoroscopy utilized during right intrarenal stent placement which is in expected position. See procedure note for further detail. Labs Labs: Laboratory Results - last 24 hr 03/10/25 03/10/25 03/10/25 16:29 19:26 20:57 WBC 12.0 H RBC 2.55 L Hgb 7.5 L Hct 24.8 L MCV 97.3 MCH 29.4 MCHC 30.2 L RDW 14.8 H Plt Count 98 L MPV 10.3 Immature Gran % (Auto) Not Reportable Neut % (Auto) Not Reportable Lymph % (Auto) Not Reportable Bath % (Auto) Not Reportable Eos % (Auto) Not Reportable Baso % (Auto) Not Reportable Lymph # (Auto) Not Reportable Bath # (Auto) Not Reportable Eos # (Auto) Not Reportable Baso # (Auto) Not Reportable Abs Immat Gran (auto) Not Reportable Absolute Neuts (auto) Not Reportable Absolute Nucleated RBC Not Reportable Total Counted 100 Neutrophils % (Manual) 92 H Band Neutrophils % 2 Lymphocytes % (Manual) 3.0 L Monocytes % (Manual) 3 Eosinophils % (Manual) Nucleated RBC % Not Reportable Abs Neuts (Manual) 11.28 H Abs Lymphs (Manual) 0.36 L Abs Monocytes (Manual) 0.36 Absolute Eos (Manual) Smudge Cells Platelet Estimate Decreased % Immature Plt Fraction 1.5 Hypochromasia Anisocytosis 1+ Microcytosis Ovalocytes Schistocytes None seen Sodium 138 Potassium 5.4 H Chloride 110 H Carbon Dioxide 15 L Anion Gap 13 H BUN 55 H Creatinine 4.76 H Estim Creat Clear Calc 13 Estimated GFR 12 L Glucose 168 H POC Capillary Glucose 113 H Lactic Acid 1.3 Calcium 8.7 Procalcitonin 17.7 Urine Color Urine Appearance Urine pH Ur Specific [place] Urine Protein Urine Glucose (UA) Urine Ketones Ur Blood (Man) Urine Nitrate Urine Bilirubin Urine Urobilinogen Ur Leukocyte Esterase Add Ur Microanalysis Urine RBC Urine WBC Ur Squamous Epith Cells Urine Bacteria Urine Casts Urine Mucus Blood Type Antibody Screen Crossmatch 03/10/25 03/11/25 03/11/25 21:13 04:20 05:14 WBC 12.0 H RBC 2.36 L Hgb 6.9 L* Hct 22.6 L MCV 95.8 MCH 29.2 MCHC 30.5 L RDW 14.8 H Plt Count 90 L MPV 10.6 H Immature Gran % (Auto) Not Reportable Neut % (Auto) Not Reportable Lymph % (Auto) Not Reportable Bath % (Auto) Not Reportable Eos % (Auto) Not Reportable Baso % (Auto) Not Reportable Lymph # (Auto) Not Reportable Bath # (Auto) Not Reportable Eos # (Auto) Not Reportable Baso # (Auto) Not Reportable Abs Immat Gran (auto) Not Reportable Absolute Neuts (auto) Not Reportable Absolute Nucleated RBC Not Reportable Total Counted 100 Neutrophils % (Manual) 93 H Band Neutrophils % 1 Lymphocytes % (Manual) 3.0 L Monocytes % (Manual) 2 L Eosinophils % (Manual) 1 Nucleated RBC % Not Reportable Abs Neuts (Manual) 11.28 H Abs Lymphs (Manual) 0.36 L Abs Monocytes (Manual) 0.24 Absolute Eos (Manual) 0.12 Smudge Cells Present Platelet Estimate Decreased % Immature Plt Fraction 1.5 Hypochromasia 1+ Anisocytosis 1+ Microcytosis 1+ Ovalocytes 1+ Schistocytes None seen Sodium 137 Potassium 4.3 Chloride 111 H Carbon Dioxide 12 L Anion Gap 14 H BUN 51 H Creatinine 4.60 H Estim Creat Clear Calc 13 Estimated GFR 13 L Glucose 111 H POC Capillary Glucose 143 H Lactic Acid Calcium 8.5 Procalcitonin Urine Color Urine Appearance Urine pH Ur Specific [place] Urine Protein Urine Glucose (UA) Urine Ketones Ur Blood (Man) Urine Nitrate Urine Bilirubin Urine Urobilinogen Ur Leukocyte Esterase Add Ur Microanalysis Urine RBC Urine WBC Ur Squamous Epith Cells Urine Bacteria Urine Casts Urine Mucus Blood Type A Positive Antibody Screen Negative Crossmatch See Detail 03/11/25 03/11/25 03/11/25 05:28 08:13 12:02 WBC RBC Hgb Hct MCV MCH MCHC RDW Plt Count MPV Immature Gran % (Auto) Neut % (Auto) Lymph % (Auto) Bath % (Auto) Eos % (Auto) Baso % (Auto) Lymph # (Auto) Bath # (Auto) Eos # (Auto) Baso # (Auto) Abs Immat Gran (auto) Absolute Neuts (auto) Absolute Nucleated RBC Total Counted Neutrophils % (Manual) Band Neutrophils % Lymphocytes % (Manual) Monocytes % (Manual) Eosinophils % (Manual) Nucleated RBC % Abs Neuts (Manual) Abs Lymphs (Manual) Abs Monocytes (Manual) Absolute Eos (Manual) Smudge Cells Platelet Estimate % Immature Plt Fraction Hypochromasia Anisocytosis Microcytosis Ovalocytes Schistocytes Sodium Potassium Chloride Carbon Dioxide Anion Gap BUN Creatinine Estim Creat Clear Calc Estimated GFR Glucose POC Capillary Glucose 122 H 116 H Lactic Acid Calcium Procalcitonin Urine Color Red H Urine Appearance Turbid H Urine pH 5.0 Ur Specific [place] 1.009 Urine Protein 3+ H Urine Glucose (UA) Negative Urine Ketones Negative Ur Blood (Man) 3+ H Urine Nitrate Negative Urine Bilirubin Negative Urine Urobilinogen 0.2 Ur Leukocyte Esterase 3+ H Add Ur Microanalysis Reviewed Urine RBC >100 H Urine WBC >100 H Ur Squamous Epith Cells Few Urine Bacteria None seen Urine Casts 0-2 Urine Mucus Present Blood Type Antibody Screen Crossmatch 03/11/25 12:07 WBC RBC Hgb 7.8 L Hct 24.7 L MCV MCH MCHC RDW Plt Count MPV Immature Gran % (Auto) Neut % (Auto) Lymph % (Auto) Bath % (Auto) Eos % (Auto) Baso % (Auto) Lymph # (Auto) Bath # (Auto) Eos # (Auto) Baso # (Auto) Abs Immat Gran (auto) Absolute Neuts (auto) Absolute Nucleated RBC Total Counted Neutrophils % (Manual) Band Neutrophils % Lymphocytes % (Manual) Monocytes % (Manual) Eosinophils % (Manual) Nucleated RBC % Abs Neuts (Manual) Abs Lymphs (Manual) Abs Monocytes (Manual) Absolute Eos (Manual) Smudge Cells Platelet Estimate % Immature Plt Fraction Hypochromasia Anisocytosis Microcytosis Ovalocytes Schistocytes Sodium Potassium Chloride Carbon Dioxide Anion Gap BUN Creatinine Estim Creat Clear Calc Estimated GFR Glucose POC Capillary Glucose Lactic Acid Calcium Procalcitonin Urine Color Urine Appearance Urine pH Ur Specific [place] Urine Protein Urine Glucose (UA) Urine Ketones Ur Blood (Man) Urine Nitrate Urine Bilirubin Urine Urobilinogen Ur Leukocyte Esterase Add Ur Microanalysis Urine RBC Urine WBC Ur Squamous Epith Cells Urine Bacteria Urine Casts Urine Mucus Blood Type Antibody Screen Crossmatch Quality VTE Prophylaxis VTE prophylaxis: mechanical ordered Hospitalist MIPS Advance Care Plan I have confirmed that the patient's Advanced Care Plan is present, code status is documented, or surrogate decision maker is listed in patient medical record.: Yes Medication Reconciliation I have utilized all available resources to obtain, update and review the pa gueros current medications (includes all prescriptions, OTC, herbals, cannabis, and nutritional supplements).: Yes The patient is not eligible for med reconciliation; the patient is in a emergent medical situation where delaying treatment would jeopardize the patients health.: No
[2025-03-11] MEDS: oxyBUTYnin CHLORIDE XL 5 MG TAB.ER.24 PO (16:55)
[2025-03-11 17:14] LABS: Glucose Point of Care 131 mg/dl (65-105)
[2025-03-11] MEDS: rOPINIRole HCL 1 MG TABLET 3 MG PO (21:54)
[2025-03-12 05:29] VITALS: BP 136/68; PULSE 74; RESP 16; TEMP 37.1; O2SAT 91
[2025-03-12 05:48] LABS: Basophils Percent Auto 0.2 % (0.2-1.2); Eosinophils Absolute Auto 0.1 K/mm3 (0-0.3); Eosinophils Percent Auto 0.9 % (0-4.4); Hematocrit 25.6 % (42.0-52.0); Hemoglobin 7.9 g/dL (14.0-18.0); Immature Granulocyte Absolute 0.16 K/mm3 (0.00-0.031); Immature Granulocyte Percent A 1.5 % (0-0.5); Immature Platelet Fraction Pct 2.1 % (0.9-11.2); Lymphocytes Absolute Auto 1.02 K/mm3 (0.9-3.2); Lymphocytes Percent Auto 9.4 % (18.3-44.2); Mean Corpuscular HGB Conc 30.9 g/dl (32-36); Mean Corpuscular Hemoglobin 29.7 pg (26-34); Mean Corpuscular Volume 96.2 fl (80-100); Mean Platelet Volume 11.3 fl (7.4-10.4); Monocytes Absolute Auto 0.6 K/mm3 (0.1-0.6); Monocytes Percent Auto 5.2 % (2.6-8.5); Neutrophils Percent Auto 82.8 % (45.5-73.1); Nucleated Red Blood Cells Perc 0.2 % (0.0-0.2); Platelet Count Result 90 k/mm3 (150-375); Red Blood Count 2.66 M/mm3 (4.6-6.20); Red Cell Distribution Width 14.6 % (11.5-14.5); White Blood Count 10.9 K/mm3 (4.5-10.0)
[2025-03-12 05:59] LABS: Anion Gap 13 mmol/L (4-12); Blood Urea Nitrogen 48 mg/dL (9-20); Calcium 8.1 mg/dL (8.4-10.2); Carbon Dioxide 14 mmol/L (22-30); Chloride 109 mmol/L (98-107); Estimated CRCL calculation 13 ml/min; Estimated Glomerular Filt Rate 13; Glucose 109 mg/dL (65-110); Potassium 4.5 mmol/L (3.4-5.0); Sodium 136 mmol/L (137-145)
[2025-03-12 08:00] VITALS: O2SAT 99
[2025-03-12] MEDS: cefTRIAXone 2 GM/NS 100 ML 2 GM/100 ML BAG IVPB (08:33)
[2025-03-12] MEDS: PANTOPRAZOLE 40 MG TABLET PO (08:33)
[2025-03-12] MEDS: SITagliptin PHOSPHATE 50 MG TABLET PO (08:34)
[2025-03-12] MEDS: ATORVASTATIN 20 MG TABLET PO (08:34)
[2025-03-12] MEDS: LOPERAMIDE HCL 2 MG CAPSULE 4 MG PO ×2 (08:34→16:28)
[2025-03-12 08:39] LABS: Glucose Point of Care 104 mg/dl (65-105)
[2025-03-12 11:26] LABS: Hemoglobin 7.7 g/dL (14.0-18.0)
[2025-03-12] MEDS: oxyBUTYnin CHLORIDE XL 5 MG TAB.ER.24 PO (11:55)
[2025-03-12 12:03] LABS: Glucose Point of Care 113 mg/dl (65-105)
--- NOTE | 2025-03-12 12:30 | P.PNIM_ITS ---
Progress Note: A&P Assessment and Plan (1) Bacteremia: Code(s): R78.81 - Bacteremia Status: Acute Assessment and Plan: patient's blood cultures came back positive for Gram-negative bacilli x2 bottles urine as well with Gram-negative bacilli. patient on 02/17/2025 had bacteremia with E coli at which time he was initially treated with IV meropenem and then transitioned to Augmentin however there were no follow-up blood cultures to evaluate for clearance. Patient initially started on IV Rocephin 1 g I have increased to 2g daily IV. ordered 2nd set of cultures still pending sensitivity reports. patient may need long-term IV antibiotic therapy up to 14 days patient is agreeable to midline placement and possible discharge to home to administer his own IV antibiotics. 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 Several weeks ago he had developed right pyelonephritis. Dr. Gallo placed a right ureteral stent. At the time he noticed a patulous ureteral orifice and hydronephrosis to a narrowing in the right distal ureter. Patient had underwent a the stent removal of ureter stent the day prior but then developed worsening renal function and became febrile after procedure. Patient was then taken for a cysto with ureteral stent placement * Serial labs to monitor renal function starting to downtrend * Flush sams BID and as needed * add an antispasmodic (3) Acute on chronic kidney failure: Qualifiers: Acute renal failure type: unspecified Chronic kidney disease stage: unspecified stage Qualified Code(s): N17.9 - Acute kidney failure, unspecified; N18.9 - Chronic kidney disease, unspecified Code(s): N17.9 - Acute kidney failure, unspecified; N18.9 - Chronic kidney disease, unspecified Status: Acute Assessment and Plan: Right ureteral stent removed on 03/09. Renal function on admission 3.01, BUN 47, GFR 20. Repeat showed 4.7, BUN 54, GFR 12 prior to surgery, Urology primary. Plan for replacement of right stent 03/10/2025. Presumed infectious urine, check UA. UC pending, follow. Started on ceftriaxone on 03/10. Most recent urine culture from 02/17/2025 grew E coli that is resistant to Bactrim and intermediate to Cipro and Levaquin. Analgesics and antiemetics p.r.n..IV Fluids received 2L in the ED maintenance fluids until surgery discontinued at this time. renal function continues to improve daily * Avoid nephrotoxic drugs. * Avoid NSAIDs. * Routine CMP monitoring GFR. * Monitor electrolytes especially potassium. (4) Hypertension: Qualifiers: Hypertension type: primary hypertension Qualified Code(s): I10 - Essential (primary) hypertension Code(s): I10 - Essential (primary) hypertension Status: Chronic Assessment and Plan: Chronic, currently 104/52. Intermittently soft since arrival. Will hold amlodipine and irbesartan, resume when BP can tolerate. 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 Post procedure patient Hgb dropped to 6.9 transfused 1 unit PRBC, F/U Hgb 7.8. He has been having hematuria post procedure which could be another secondary cause. patient's hemoglobin stable today 7.9 no further hematuria or blood clots in urine. * Hold Heparin DVT prophylaxis for now * Monitor H&H Q6hr * Transfuse PRBC if Hgb <7.0 (6) Sepsis: Qualifiers: Sepsis type: sepsis due to unspecified organism Sepsis acute organ dysfunction status: with acute organ dysfunction Severe sepsis acute organ dysfunction type: acute renal failure Acute renal failure type: unspecified Severe sepsis shock status: without septic shock Qualified Code(s): A41.9 - Sepsis, unspecified organism; R65.20 - Severe sepsis without septic shock; N17.9 - Acute kidney failure, unspecified Code(s): A41.9 - Sepsis, unspecified organism Status: Resolved Assessment and Plan: HR, temp. Check CBC, lactic acid, and procalcitonin. Sepsis bolus ordered: 2.1L of LR. Suspected source - urine, recent UTI and kidney stones with stent placement. Check UA and urine culture. Started on ceftriaxone on 03/10. Recent bacteremia, blood culture that were drawn on 02/17/2025 grew E coli 2/2 that was resistant to Bactrim and intermediate to Cipro and Levaquin. Blood cultures redrawn on 03/10, follow. Currently UA still pending and blood cultures NGTD x 24 hours. No further fever post-op * Serial labs (7) Acute hyperkalemia: Code(s): E87.5 - Hyperkalemia Status: Resolved Assessment and Plan: K 5.6. Will treat with Lokelma x1 and sodium bicarbonate. Recheck this evening -> 5.4. Re-dose with calcium, insulin/dextrose, Kayexalate, and albuterol. Monitor. Plan Code status: Full code per patient DVT prophylaxis: SCD Dictation performed by [employer] direct speech recognition software, therefore vegetable buncher variants and typographical errors may occur. Time Spent With Patient Time with patient: 15 - 25 minutes Subjective Date/time seen: 03/12/25 12:31 Interval history: Patient is a 74-year-old male admitted for treatment sepsis secondary to right hydronephrosis. who underwent a Cystoscopy, right retrograde pyelography, right ureteral stent placement. 03/11/2025: Patient in no acute distress. Denied any complaint or further issues of retention. Urine yellow hematuria improved, remains afebrile and WBC downtrending. Review of Systems Review of Systems: All systems reviewed & are unremarkable except as noted in HPI and below Exam Const: General: comfortable and no acute distress Other: Pleasant male HENMT: Face/Nose/Sinus: Normal nares present Mouth: Yes moist mucous membranes Eyes: General: appearance normal, both eyes and all related structures Sclera: sclerae normal Pupils: Equal, round and reactive pupils present EOM: EOMs intact bilaterally Neck: Neck: supple Resp: Effort & Inspection: normal respiratory effort Auscultation: clear to auscultation bilaterally Cardio: Rate: regular rate Rhythm: regular rhythm Other: S1-S2 present without murmur, rub, ectopy GI: Other: Abdomen soft, nondistended, nontender. Normoactive bowel sounds in all quadrants. Urinary Catheter: Urinary Catheter: patent and draining, urine dark and other (Clear no hematuria noted) Skin: General skin exam: normal color and no rashes or lesions noted Wou nds: no wounds Neuro: Cranial nerves: Yes Equal, round and reactive pupils present Speech: normal speech Motor exam (neuro): 5/5 motor strength present throughout Sensory Exam: normal sensation Other: A&O x4 Extrem: General: normal to inspection Psych: Mental Status: mental status grossly normal Affect: normal affect Other: Good insight and judgment, pleasant Objective Data Vital Signs Vital Signs: Vital Signs - 24 hr 03/11/25 12:56 03/11/25 14:00 03/11/25 16:56 Temperature 98.4 F 98.5 F 98.7 F Pulse Rate 72 76 78 Respiratory Rate 20 18 20 Blood Pressure 104/68 110/72 112/76 Pulse Oximetry 96 98 98 03/11/25 21:17 03/12/25 05:29 Temperature 98.6 F 98.8 F Pulse Rate 79 74 Respiratory Rate 16 16 Blood Pressure 130/70 136/68 Pulse Oximetry 96 91 Intake/Output Intake/Output: Intake & Output 03/09/25 03/10/25 03/11/25 03/12/25 23:59 23:59 23:59 23:59 Intake Total 1600 8310 640 Output Total 850 4860 2000 Balance 750 3450 -1460 Meds/Results Medications: Active Medications Generic Name Dose Route Start Last Admin Trade Name Freq PRN Reason Stop Dose Admin Acetaminophen 650 mg 03/10/25 15:26 03/11/25 09:51 Acetaminophen 325 Mg Tablet PO 650 mg Q4H PRN Administration Mild Pain (1-3) or Fever Amlodipine Besylate 10 mg 03/11/25 09:00 Amlodipine Besylate 10 Mg Tablet PO DAILY KIRSTEN Atorvastatin Calcium 20 mg 03/11/25 09:00 03/12/25 08:34 Atorvastatin 20 Mg Tablet PO 20 mg DAILY KIRSTEN Administration Dextrose 12.5 gm 03/10/25 15:32 Dextrose 50% 25 Gm/50 Ml Syringe IV PUSH PRN PRN Hypoglycemia Protocol Fentanyl Citrate 25 mcg 03/10/25 13:51 Fentanyl Citrate Inj (*Crx) 100 Mcg/2 Ml Vial IV PUSH Q2M PRN Pain Glucagon 1 mg 03/10/25 15:32 Glucagon For Inj 1 Mg Vial IM PRN PRN Hypoglycemia Protocol Glucose 15 gm 03/10/25 15:32 Glucose Oral Gel 15 Gm Of Glucse In 37.5 Gm Tube PO PRN PRN Hypoglycemia Protocol Dextrose 1,000 mls @ 100 mls/hr 03/10/25 15:32 Dextrose 5% 1,000 Ml IVPB PRN PRN Hypoglycemia Protocol Ceftriaxone Sodium 2 gm in 100 mls @ 200 mls/hr 03/12/25 08:00 03/12/25 08:33 Rocephin 2 Gm/Ns 100 Ml IVPB 200 mls/hr Q24H KIRSTEN Administration Irbesartan 75 mg 03/11/25 09:00 Irbesartan 75 Mg Tablet PO DAILY KIRSTEN Loperamide HCl 4 mg 03/10/25 17:00 03/12/25 08:34 Loperamide Hcl 2 Mg Capsule PO 4 mg BID KIRSTEN Administration Ondansetron HCl 4 mg 03/10/25 13:51 Ondansetron Inj 4 Mg/2 Ml Vial IV PUSH ONCE PRN Nausea Ondansetron HCl 4 mg 03/10/25 15:26 Ondansetron Inj 4 Mg/2 Ml Vial IV PUSH Q6H PRN Nausea And Vomiting Oxybutynin Chloride 5 mg 03/11/25 16:00 03/12/25 11:55 Oxybutynin Chloride Xl 5 Mg Tab.Er.24 PO 5 mg QAM KIRSTEN Administration Oxycodone HCl 5 mg 03/10/25 13:51 03/11/25 05:11 Oxycodone Hcl (*Crx) 5 Mg Tab Ir PO 5 mg ONCE PRN Administration Pain Pantoprazole Sodium 40 mg 03/11/25 09:00 03/12/25 08:33 Pantoprazole 40 Mg Tablet PO 40 mg QAM KIRSTEN Administration Ropinirole HCl 3 mg 03/10/25 21:00 03/11/25 21:54 Ropinirole Hcl 1 Mg Tablet PO 3 mg HS KIRSTEN Administration Sitagliptin Phosphate 50 mg 03/11/25 09:00 03/12/25 08:34 Sitagliptin Phosphate 50 Mg Tablet PO 50 mg DAILY KIRSTEN Administration Radiology Results: ITS Impressions Retrograde Pyelogram 03/10/25 16:15 IMPRESSION: 1. Fluoroscopy utilized during right intrarenal stent placement which is in expected position. See procedure note for further detail. Labs Labs: Laboratory Results - last 24 hr 03/11/25 03/12/25 03/12/25 17:11 05:22 08:30 WBC 10.9 H RBC 2.66 L Hgb 7.9 L Hct 25.6 L MCV 96.2 MCH 29.7 MCHC 30.9 L RDW 14.6 H Plt Count 90 L MPV 11.3 H Immature Gran % (Auto) 1.5 H Neut % (Auto) 82.8 H Lymph % (Auto) 9.4 L [place] % (Auto) 5.2 Eos % (Auto) 0.9 Baso % (Auto) 0.2 Lymph # (Auto) 1.02 [place] # (Auto) 0.6 Eos # (Auto) 0.1 Baso # (Auto) 0.0 Abs Immat Gran (auto) 0.16 H Absolute Neuts (auto) 9.0 H Absolute Nucleated RBC 0.020 H Nucleated RBC % 0.2 % Immature Plt Fraction 2.1 Sodium 136 L Potassium 4.5 Chloride 109 H Carbon Dioxide 14 L Anion Gap 13 H BUN 48 H Creatinine 4.56 H Estim Creat Clear Calc 13 Estimated GFR 13 L Glucose 109 POC Capillary Glucose 131 H 104 Calcium 8.1 L 03/12/25 03/12/25 11:18 12:01 WBC RBC Hgb 7.7 L Hct 24.0 L MCV MCH MCHC RDW Plt Count MPV Immature Gran % (Auto) Neut % (Auto) Lymph % (Auto) [place] % (Auto) Eos % (Auto) Baso % (Auto) Lymph # (Auto) [place] # (Auto) Eos # (Auto) Baso # (Auto) Abs Immat Gran (auto) Absolute Neuts (auto) Absolute Nucleated RBC Nucleated RBC % % Immature Plt Fraction Sodium Potassium Chloride Carbon Dioxide Anion Gap BUN Creatinine Estim Creat Clear Calc Estimated GFR Glucose POC Capillary Glucose 113 H Calcium Quality VTE Prophylaxis VTE prophylaxis: mechanical ordered Hospitalist MIPS Advance Care Plan I have confirmed that the patient's Advanced Care Plan is present, code status is documented, or surrogate decision maker is listed in patient medical record.: Yes Medication Reconciliation I have utilized all available resources to obtain, update and review the patients current medications (includes all prescriptions, OTC, herbals, cannabis, and nutritional supplements).: Yes The patient is not eligible for med reconciliation; the patient is in a emergent medical situation where delaying treatment would jeopardize the patients health.: No
--- NOTE | 2025-03-12 12:42 | WPDUROPN2 ---
Progress Note: A&P Assessment and Plan (1) Acute on chronic kidney failure: Qualifiers: Acute renal failure type: unspecified Chronic kidney disease stage: unspecified stage Qualified Code(s): N17.9 - Acute kidney failure, unspecified; N18.9 - Chronic kidney disease, unspecified Code(s): N17.9 - Acute kidney failure, unspecified; N18.9 - Chronic kidney disease, unspecified Status: Acute (2) Sepsis: Qualifiers: Sepsis type: sepsis due to unspecified organism Sepsis acute organ dysfunction status: with acute organ dysfunction Severe sepsis acute organ dysfunction type: acute renal failure Acute renal failure type: unspecified Severe sepsis shock status: without septic shock Qualified Code(s): A41.9 - Sepsis, unspecified organism; R65.20 - Severe sepsis without septic shock; N17.9 - Acute kidney failure, unspecified Code(s): A41.9 - Sepsis, unspecified organism Status: Resolved (3) Acute renal failure: Code(s): N17.9 - Acute kidney failure, unspecified Status: Acute Plan 1. Continue Uriarte. 2. Daily labs. 3. Hold heparin DVT ppx, ambulate and SCDs. 4. Continue Rocephin, tailor to C&S. 5. Appreciate Hospital Medicine recommendations. Diabetes and hyperkalemia mgmt noted and appreciated. Subjective Subjective Date/Time Seen: 03/12/25 12:42 Interval history: NAEO, reports feeling better. GNR in urine and blood, speciation and susceptibility pending. Exam Narrative: NAD, A&Ox3 RRR eWOB S/NT/ND Urine clear, no clots. Objective Data Vital Signs Vital Signs: Vital Signs - 24 hr 03/11/25 12:56 03/11/25 14:00 03/11/25 16:56 Temperature 98.4 F 98.5 F 98.7 F Pulse Rate 72 76 78 Respiratory Rate 20 18 20 Blood Pressure 104/68 110/72 112/76 Pulse Oximetry 96 98 98 03/11/25 21:17 03/12/25 05:29 Temperature 98.6 F 98.8 F Pulse Rate 79 74 Respiratory Rate 16 16 Blood Pressure 130/70 136/68 Pulse Oximetry 96 91 Intake/Output Intake/Output: Intake & Output 03/09/25 03/10/25 03/11/25 03/12/25 23:59 23:59 23:59 23:59 Intake Total 1600 8310 640 Output Total 460 9640 1999 Balance 750 9476 -6619 Meds/Results Medications: Active Medications Generic Name Dose Route Start Last Admin Trade Name Freq PRN Reason Stop Dose Admin Acetaminophen 650 mg 03/10/25 15:26 03/11/25 09:51 Acetaminophen 325 Mg Tablet PO 650 mg Q4H PRN Administration Mild Pain (1-3) or Fever Amlodipine Besylate 10 mg 03/11/25 09:00 Amlodipine Besylate 10 Mg Tablet PO DAILY KIRSTEN Atorvastatin Calcium 20 mg 03/11/25 09:00 03/12/25 08:34 Atorvastatin 20 Mg Tablet PO 20 mg DAILY KIRSTEN Administration Dextrose 12.5 gm 03/10/25 15:32 Dextrose 50% 25 Gm/50 Ml Syringe IV PUSH PRN PRN Hypoglycemia Protocol Fentanyl Citrate 25 mcg 03/10/25 13:51 Fentanyl Citrate Inj (*Crx) 100 Mcg/2 Ml Vial IV PUSH Q2M PRN Pain Glucagon 1 mg 03/10/25 15:32 Glucagon For Inj 1 Mg Vial IM PRN PRN Hypoglycemia Protocol Glucose 15 gm 03/10/25 15:32 Glucose Oral Gel 15 Gm Of Glucse In 37.5 Gm Tube PO PRN PRN Hypoglycemia Protocol Dextrose 1,000 mls @ 100 mls/hr 03/10/25 15:32 Dextrose 5% 1,000 Ml IVPB PRN PRN Hypoglycemia Protocol Ceftriaxone Sodium 2 gm in 100 mls @ 200 mls/hr 03/12/25 08:00 03/12/25 08:33 Rocephin 2 Gm/Ns 100 Ml IVPB 200 mls/hr Q24H KIRSTEN Administration Irbesartan 75 mg 03/11/25 09:00 Irbesartan 75 Mg Tablet PO DAILY KIRSTEN Loperamide HCl 4 mg 03/10/25 17:00 03/12/25 08:34 Loperamide Hcl 2 Mg Capsule PO 4 mg BID KIRSTEN Administration Ondansetron HCl 4 mg 03/10/25 13:51 Ondansetron Inj 4 Mg/2 Ml Vial IV PUSH ONCE PRN Nausea Ondansetron HCl 4 mg 03/10/25 15:26 Ondansetron Inj 4 Mg/2 Ml Vial IV PUSH Q6H PRN Nausea And Vomiting Oxybutynin Chloride 5 mg 03/11/25 16:00 03/12/25 11:55 Oxybutynin Chloride Xl 5 Mg Tab.Er.24 PO 5 mg QAM KIRSTEN Administration Oxycodone HCl 5 mg 03/10/25 13:51 03/11/25 05:11 Oxycodone Hcl (*Crx) 5 Mg Tab Ir PO 5 mg ONCE PRN Administration Pain Pantoprazole Sodium 40 mg 03/11/25 09:00 03/12/25 08:33 Pantoprazole 40 Mg Tablet PO 40 mg QAM KIRSTEN Administration Ropinirole HCl 3 mg 03/10/25 21:00 03/11/25 21:54 Ropinirole Hcl 1 Mg Tablet PO 3 mg HS KIRSTEN Administration Sitagliptin Phosphate 50 mg 03/11/25 09:00 03/12/25 08:34 Sitagliptin Phosphate 50 Mg Tablet PO 50 mg DAILY KIRSTEN Administration Radiology Results: ITS Impressions Retrograde Pyelogram 03/10/25 16:15 IMPRESSION: 1. Fluoroscopy utilized during right intrarenal stent placement which is in expected position. See procedure note for further detail. Labs Labs: Laboratory Results - last 24 hr 03/11/25 03/12/25 03/12/25 17:11 05:22 08:30 WBC 10.9 H RBC 2.66 L Hgb 7.9 L Hct 25.6 L MCV 96.2 MCH 29.7 MCHC 30.9 L RDW 14.6 H Plt Count 90 L MPV 11.3 H Immature Gran % (Auto) 1.5 H Neut % (Auto) 82.8 H Lymph % (Auto) 9.4 L [place] % (Auto) 5.2 Eos % (Auto) 0.9 Baso % (Auto) 0.2 Lymph # (Auto) 1.02 [place] # (Auto) 0.6 Eos # (Auto) 0.1 Baso # (Auto) 0.0 Abs Immat Gran (auto) 0.16 H Absolute Neuts (auto) 9.0 H Absolute Nucleated RBC 0.020 H Nucleated RBC % 0.2 % Immature Plt Fraction 2.1 Sodium 136 L Potassium 4.5 Chloride 109 H Carbon Dioxide 14 L Anion Gap 13 H BUN 48 H Creatinine 4.56 H Estim Creat Clear Calc 13 Estimated GFR 13 L Glucose 109 POC Capillary Glucose 131 H 104 Calcium 8.1 L 03/12/25 03/12/25 11:18 12:01 WBC RBC Hgb 7.7 L Hct 24.0 L MCV MCH MCHC RDW Plt Count MPV Immature Gran % (Auto) Neut % (Auto) Lymph % (Auto) [place] % (Auto) Eos % (Auto) Baso % (Auto) Lymph # (Auto) [place] # (Auto) Eos # (Auto) Baso # (Auto) Abs Immat Gran (auto) Absolute Neuts (auto) Absolute Nucleated RBC Nucleated RBC % % Immature Plt Fraction Sodium Potassium Chloride Carbon Dioxide Anion Gap BUN Creatinine Estim Creat Clear Calc Estimated GFR Glucose POC Capillary Glucose 113 H Calcium
[2025-03-12] MEDS: WATER FOR IRRIGATION, STERILE 1,000 ML BOTTLE 1000 ML (13:45)
[2025-03-12 14:00] VITALS: BP 119/70; PULSE 73; RESP 16; TEMP 36.9; O2SAT 99
[2025-03-12 16:49] LABS: Glucose Point of Care 107 mg/dl (65-105)
[2025-03-12] MEDS: rOPINIRole HCL 1 MG TABLET 3 MG PO (20:23)
[2025-03-12 21:50] VITALS: BP 135/65; PULSE 68; RESP 18; TEMP 36.4; O2SAT 96
[2025-03-12] MEDS: ONDANSETRON INJ 4 MG/2 ML VIAL IV PUSH (23:24)
[2025-03-13 05:45] LABS: Hematocrit 26.6 % (42.0-52.0); Hemoglobin 8.4 g/dL (14.0-18.0)
[2025-03-13 05:47] LABS: Basophils Percent Auto 0.3 % (0.2-1.2); Eosinophils Absolute Auto 0.1 K/mm3 (0-0.3); Eosinophils Percent Auto 1.6 % (0-4.4); Hematocrit 27.1 % (42.0-52.0); Hemoglobin 8.3 g/dL (14.0-18.0); Immature Granulocyte Absolute 0.08 K/mm3 (0.00-0.031); Immature Granulocyte Percent A 1.2 % (0-0.5); Immature Platelet Fraction Pct 2.3 % (0.9-11.2); Lymphocytes Absolute Auto 0.78 K/mm3 (0.9-3.2); Lymphocytes Percent Auto 11.3 % (18.3-44.2); Mean Corpuscular HGB Conc 30.6 g/dl (32-36); Mean Corpuscular Hemoglobin 29.5 pg (26-34); Mean Corpuscular Volume 96.4 fl (80-100); Mean Platelet Volume 10.2 fl (7.4-10.4); Monocytes Absolute Auto 0.4 K/mm3 (0.1-0.6); Neutrophils Absolute Auto 5.5 K/mm3 (1.3-6.7); Neutrophils Percent Auto 79.6 % (45.5-73.1); Nucleated Red Blood Cells Perc 0.3 % (0.0-0.2); Platelet Count Result 106 k/mm3 (150-375); Red Blood Count 2.81 M/mm3 (4.6-6.20); White Blood Count 6.9 K/mm3 (4.5-10.0)
[2025-03-13 05:58] LABS: Anion Gap 13 mmol/L (4-12); Blood Urea Nitrogen 48 mg/dL (9-20); Calcium 8.3 mg/dL (8.4-10.2); Carbon Dioxide 18 mmol/L (22-30); Chloride 105 mmol/L (98-107); Estimated CRCL calculation 14 ml/min; Estimated Glomerular Filt Rate 14; Glucose 99 mg/dL (65-110); Potassium 4.5 mmol/L (3.4-5.0); Sodium 136 mmol/L (137-145)
[2025-03-13 06:00] VITALS: BP 155/69; PULSE 65; RESP 18; TEMP 36.5; O2SAT 96
--- NOTE | 2025-03-13 06:03 | WPDUROPN2 ---
Progress Note: A&P Assessment and Plan (1) Acute renal failure: Code(s): N17.9 - Acute kidney failure, unspecified Status: Acute (2) Hydroureteronephrosis: Code(s): N13.30 - Unspecified hydronephrosis Status: Acute (3) Acute on chronic kidney failure: Qualifiers: Acute renal failure type: unspecified Chronic kidney disease stage: unspecified stage Qualified Code(s): N17.9 - Acute kidney failure, unspecified; N18.9 - Chronic kidney disease, unspecified Code(s): N17.9 - Acute kidney failure, unspecified; N18.9 - Chronic kidney disease, unspecified Status: Acute (4) Urinary tract infection: Code(s): N39.0 - Urinary tract infection, site not specified Status: Acute Assessment and Plan: Appreciate Dr. Suárez assistance. Positive blood cx. with GNR - await final ID/sensitivities. Slow, progressive return renal function after right stent replacement in this pt. with solitary right kidney. Evaluation last week showed both vesico-ureteral reflux and narrowing right mid-distal ureter. He will likely need long-term indwelling uretera stent with periodic changes - discussed with pt. on several occasions. Subjective Subjective Date/Time Seen: 03/13/25 06:03 Interval history: Comfortable, no complaints Review of Systems Cardiovascular: Cardiovascular: Denies chest pain, Denies lightheadedness, Denies palpitations and Denies dyspnea Respiratory: Respiratory: Denies dyspnea Gastrointestinal: Gastrointestinal: Denies diarrhea, Denies nausea and Denies vomiting Genitourinary: Genitourinary: Denies hematuria and Denies dysuria Endocrine: Endocrine: Denies palpitations Exam Const: General: no acute distress Resp: Effort & Inspection: normal respiratory effort GI: Inspection: non-distended GI Palp: No abdominal tenderness and No Guarding due to palpation present (GI) Auscultation: normal bowel sounds Objective Data Vital Signs Vital Signs: Vital Signs - 24 hr 03/12/25 08:00 03/12/25 14:00 03/12/25 20:00 Temperature 98.4 F Pulse Rate 73 Respiratory Rate 16 Blood Pressure 119/70 Pulse Oximetry 99 99 Oxygen Delivery Room Air Room Air 03/12/25 21:50 Temperature 97.6 F Pulse Rate 68 Respiratory Rate 18 Blood Pressure 135/65 Pulse Oximetry 96 Oxygen Delivery Intake/Output Intake/Output: Intake & Output 03/10/25 03/11/25 03/12/25 03/13/25 23:59 23:59 23:59 23:59 Intake Total 1600 8310 1620 Output Total 850 4860 4220 Balance 750 3450 -2600 Meds/Results Medications: Active Medications Generic Name Dose Route Start Last Admin Trade Name Freq PRN Reason Stop Dose Admin Acetaminophen 650 mg 03/10/25 15:26 03/11/25 09:51 Acetaminophen 325 Mg Tablet PO 650 mg Q4H PRN Administration Mild Pain (1-3) or Fever Amlodipine Besylate 10 mg 03/11/25 09:00 Amlodipine Besylate 10 Mg Tablet PO DAILY KIRSTEN Atorvastatin Calcium 20 mg 03/11/25 09:00 03/12/25 08:34 Atorvastatin 20 Mg Tablet PO 20 mg DAILY KIRSTEN Administration Dextrose 12.5 gm 03/10/25 15:32 Dextrose 50% 25 Gm/50 Ml Syringe IV PUSH PRN PRN Hypoglycemia Protocol Fentanyl Citrate 25 mcg 03/10/25 13:51 Fentanyl Citrate Inj (*Crx) 100 Mcg/2 Ml Vial IV PUSH Q2M PRN Pain Glucagon 1 mg 03/10/25 15:32 Glucagon For Inj 1 Mg Vial IM PRN PRN Hypoglycemia Protocol Glucose 15 gm 03/10/25 15:32 Glucose Oral Gel 15 Gm Of Glucse In 37.5 Gm Tube PO PRN PRN Hypoglycemia Protocol Dextrose 1,000 mls @ 100 mls/hr 03/10/25 15:32 Dextrose 5% 1,000 Ml IVPB PRN PRN Hypoglycemia Protocol Ceftriaxone Sodium 2 gm in 100 mls @ 200 mls/hr 03/12/25 08:00 03/12/25 08:33 Rocephin 2 Gm/Ns 100 Ml IVPB 200 mls/hr Q24H KIRSTEN Administration Irbesartan 75 mg 03/11/25 09:00 Irbesartan 75 Mg Tablet PO DAILY KIRSTEN Loperamide HCl 4 mg 03/10/25 17:00 03/12/25 16:28 Loperamide Hcl 2 Mg Capsule PO 4 mg BID KIRSTEN Administration Ondansetron HCl 4 mg 03/10/25 13:51 03/12/25 23:24 Ondansetron Inj 4 Mg/2 Ml Vial IV PUSH 4 mg ONCE PRN Administration Nausea Ondansetron HCl 4 mg 03/10/25 15:26 Ondansetron Inj 4 Mg/2 Ml Vial IV PUSH Q6H PRN Nausea And Vomiting Oxybutynin Chloride 5 mg 03/11/25 16:00 03/12/25 11:55 Oxybutynin Chloride Xl 5 Mg Tab.Er.24 PO 5 mg QAM KIRSTEN Administration Oxycodone HCl 5 mg 03/10/25 13:51 03/11/25 05:11 Oxycodone Hcl (*Crx) 5 Mg Tab Ir PO 5 mg ONCE PRN Administration Pain Pantoprazole Sodium 40 mg 03/11/25 09:00 03/12/25 08:33 Pantoprazole 40 Mg Tablet PO 40 mg QAM KIRSTEN Administration Ropinirole HCl 3 mg 03/10/25 21:00 03/12/25 20:23 Ropinirole Hcl 1 Mg Tablet PO 3 mg HS KIRSTEN Administration Sitagliptin Phosphate 50 mg 03/11/25 09:00 03/12/25 08:34 Sitagliptin Phosphate 50 Mg Tablet PO 50 mg DAILY KIRSTEN Administration Radiology Results: ITS Impressions Retrograde Pyelogram 03/10/25 16:15 IMPRESSION: 1. Fluoroscopy utilized during right intrarenal stent placement which is in expected position. See procedure note for further detail. Labs Labs: Laboratory Results - last 24 hr 03/12/25 03/12/25 03/12/25 05:22 08:30 11:18 WBC 10.9 H RBC 2.66 L Hgb 7.9 L 7.7 L Hct 25.6 L 24.0 L MCV 96.2 MCH 29.7 MCHC 30.9 L RDW 14.6 H Plt Count 90 L MPV 11.3 H Immature Gran % (Auto) 1.5 H Neut % (Auto) 82.8 H Lymph % (Auto) 9.4 L [place] % (Auto) 5.2 Eos % (Auto) 0.9 Baso % (Auto) 0.2 Lymph # (Auto) 1.02 [place] # (Auto) 0.6 Eos # (Auto) 0.1 Baso # (Auto) 0.0 Abs Immat Gran (auto) 0.16 H Absolute Neuts (auto) 9.0 H Absolute Nucleated RBC 0.020 H Nucleated RBC % 0.2 % Immature Plt Fraction 2.1 Sodium Potassium Chloride Carbon Dioxide Anion Gap BUN Creatinine Estim Creat Clear Calc Estimated GFR Glucose POC Capillary Glucose 104 Calcium 03/12/25 03/12/25 03/13/25 12:01 16:43 05:37 WBC 6.9 RBC 2.81 L Hgb 8.3 L Hct MCV MCH MCHC RDW Plt Count MPV Immature Gran % (Auto) Neut % (Auto) Lymph % (Auto) [place] % (Auto) Eos % (Auto) Baso % (Auto) Lymph # (Auto) [place] # (Auto) Eos # (Auto) Baso # (Auto) Abs Immat Gran (auto) Absolute Neuts (auto) Absolute Nucleated RBC Nucleated RBC % % Immature Plt Fraction Sodium Potassium Chloride Carbon Dioxide Anion Gap BUN Creatinine Estim Creat Clear Calc Estimated GFR Glucose POC Capillary Glucose 113 H 107 H Calcium 03/13/25 03/13/25 05:37 05:37 WBC RBC Hgb 8.4 L Hct 27.1 L 26.6 L MCV 96.4 MCH 29.5 MCHC 30.6 L RDW 14.0 Plt Count 106 L MPV 10.2 Immature Gran % (Auto) 1.2 H Neut % (Auto) 79.6 H Lymph % (Auto) 11.3 L [place] % (Auto) 6.0 Eos % (Auto) 1.6 Baso % (Auto) 0.3 Lymph # (Auto) 0.78 L [place] # (Auto) 0.4 Eos # (Auto) 0.1 Baso # (Auto) 0.0 Abs Immat Gran (auto) 0.08 H Absolute Neuts (auto) 5.5 Absolute Nucleated RBC 0.020 H Nucleated RBC % 0.3 H % Immature Plt Fraction 2.3 Sodium 136 L Potassium 4.5 Chloride 105 Carbon Dioxide 18 L Anion Gap 13 H BUN 48 H Creatinine 4.21 H Estim Creat Clear Calc 14 Estimated GFR 14 L Glucose 99 POC Capillary Glucose Calcium 8.3 L
[2025-03-13] MEDS: cefTRIAXone 2 GM/NS 100 ML 2 GM/100 ML BAG IVPB (07:28)
[2025-03-13] MEDS: ATORVASTATIN 20 MG TABLET PO (07:29)
[2025-03-13] MEDS: LOPERAMIDE HCL 2 MG CAPSULE 4 MG PO ×2 (07:29→16:16)
[2025-03-13] MEDS: oxyBUTYnin CHLORIDE XL 5 MG TAB.ER.24 PO (07:30)
[2025-03-13] MEDS: PANTOPRAZOLE 40 MG TABLET PO (07:30)
[2025-03-13] MEDS: SITagliptin PHOSPHATE 50 MG TABLET PO (07:30)
[2025-03-13 07:40] LABS: Glucose Point of Care 144 mg/dl (65-105)
[2025-03-13 08:00] VITALS: O2SAT 96
[2025-03-13 08:38] LABS: Glucose Point of Care 104 mg/dl (65-105)
--- NOTE | 2025-03-13 10:00 | P.PNIM_ITS ---
Progress Note: A&P Assessment and Plan (1) Bacteremia: Code(s): R78.81 - Bacteremia Status: Acute Assessment and Plan: patient's blood cultures came back positive for Gram-negative bacilli x2 bottles urine as well with Gram-negative bacilli. patient on 02/17/2025 had bacteremia with E coli at which time he was initially treated with IV meropenem and then transitioned to Augmentin however there were no follow-up blood cultures to evaluate for clearance. Patient initially started on IV Rocephin 1 g I have increased to 2g daily IV. ordered 2nd set of cultures still pending sensitivity reports. Patient's urine and blood cultures grew Enterobacter Colace complex sensitivity report with no evidence sensitive to ceftriaxone spoke with Infectious Disease will transitioned to cefepime Q 24 while h ospitalized but can transitioned to oral ciprofloxacin for coverage times 12 days. will continue admission for 24 more hours to ensure 48 hour clearance on blood cultures. patient remained afebrile and normal WBC * switched to cefepime Q24 will transitioned to ciprofloxacin on discharge for 14 days * Second set of blood cultures NGTD Q24 hours will allow for 48 hour to ensure clearance. 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 Several weeks ago he had developed right pyelonephritis. Dr. Gallo placed a right ureteral stent. At the time he noticed a patulous ureteral orifice and hydronephrosis to a narrowing in the right distal ureter. Patient had underwent a the stent removal of ureter stent the day prior but then developed worsening renal function and became febrile after procedure. Patient was then taken for a cysto with ureteral stent placement. patient's renal function continues to improve patient denied any further pain or retention. * Serial labs to monitor renal function starting to downtrend * Flush sams BID and as needed * add an antispasmodic (4) Acute on chronic kidney failure: Qualifiers: Acute renal failure type: unspecified Chronic kidney disease stage: unspecified stage Qualified Code(s): N17.9 - Acute kidney failure, unspecified; N18.9 - Chronic kidney disease, unspecified Code(s): N17.9 - Acute kidney failure, unspecified; N18.9 - Chronic kidney disease, unspecified Status: Acute Assessment and Plan: Right ureteral stent removed on 03/09. Renal function on admission 3.01, BUN 47, GFR 20. Repeat showed 4.7, BUN 54, GFR 12 prior to surgery, [facility]. Plan for replacement of right stent 03/10/2025. Presumed infectious urine, check UA. UC pending, follow. Started on ceftriaxone on 03/10. Most recent urine culture from 02/17/2025 grew E coli that is resistant to Bactrim and intermediate to Cipro and Levaquin. Analgesics and antiemetics p.r.n..IV Fluids received 2L in the ED maintenance fluids until surgery discontinued at this time. renal function continues to improve daily * Avoid nephrotoxic drugs. * Avoid NSAIDs. * Routine CMP monitoring GFR. * Monitor electrolytes especially potassium. (5) Hypertension: Qualifiers: Hypertension type: primary hypertension Qualified Code(s): I10 - Essential (primary) hypertension Code(s): I10 - Essential (primary) hypertension Status: Chronic Assessment and Plan: Chronic, currently 104/52. Intermittently soft since arrival. Will hold amlodipine and irbesartan, resume when BP can tolerate. * Reviewed continue to hold medication (6) Anemia: Code(s): D64.9 - Anemia, unspecified Status: Acute Assessment and Plan: Patient with history of anemia likely secondary to kidney disease. Post procedure patient Hgb dropped to 6.9 transfused 1 unit PRBC, F/U Hgb 7.8. He has been having hematuria post procedure which could be another secondary cause. patient's hemoglobin stable today 7.9 no further hematuria or blood clots in urine. * Hold Heparin DVT prophylaxis for now * Monitor H&H Q6hr * Transfuse PRBC if Hgb <7.0 (7) Sepsis: Qualifiers: Acute renal failure type: unspecified Sepsis acute organ dysfunction status: with acute organ dysfunction Sepsis type: sepsis due to unspecified organism Severe sepsis acute organ dysfunction type: acute renal failure Severe sepsis shock status: without septic shock Qualified Code(s): A41.9 - Sepsis, unspecified organism; R65.20 - Severe sepsis without septic shock; N17.9 - Acute kidney failure, unspecified Code(s): A41.9 - Sepsis, unspecified organism Status: Resolved Assessment and Plan: HR, temp. Check CBC, lactic acid, and procalcitonin. Sepsis bolus ordered: 2.1L of LR. Suspected source - urine, recent UTI and kidney stones with stent placement. Check UA and urine culture. Started on ceftriaxone on 03/10. Recent bacteremia, blood culture that were drawn on 02/17/2025 grew E coli 2/2 that was resistant to Bactrim and intermediate to Cipro and Levaquin. Blood cultures redrawn on 03/10, follow. Currently UA still pending and blood cultures NGTD x 24 hours. No further fever post-op * Serial labs (8) Acute hyperkalemia: Code(s): E87.5 - Hyperkalemia Status: Resolved Assessment and Plan: K 5.6. Will treat with Lokelma x1 and sodium bicarbonate. Recheck this evening -> 5.4. Re-dose with calcium, insulin/dextrose, Kayexalate, and albuterol. Monitor. Plan Code status: Full code per patient DVT prophylaxis: SCD Dictation performed by [employer] direct speech recognition software, therefore potato pancake frier variants and typographical errors may occur. Time Spent With Patient Time with patient: 15 - 25 minutes Subjective Date/time seen: 03/13/25 10:00 Interval history: Patient is a 74-year-old male admitted for treatment sepsis secondary to right hydronephrosis. who underwent a Cystoscopy, right retrograde pyelography, right ureteral stent placement. 03/13/2025: Patient in no acute distress. Denied any complaint or further issues of retention. Urine yellow hematuria improved, remains afebrile and WBC janis ntrending. Sams removed and voiding. Can D/C from my standpoint tomorrow if 2nd set of cultures remain negative Q48hrs on Cipro PO for 13 more days. Review of Systems Review of Systems: All systems reviewed & are unremarkable except as noted in HPI and below Exam Const: General: comfortable and no acute distress Other: Pleasant male HENMT: Face/Nose/Sinus: Normal nares present Mouth: Yes moist mucous membranes Eyes: General: appearance normal, both eyes and all related structures Sclera: sclerae normal Pupils: Equal, round and reactive pupils present EO M: EOMs intact bilaterally Neck: Neck: supple Resp: Effort & Inspection: normal respiratory effort Auscultation: clear to auscultation bilaterally Cardio: Rate: regular rate Rhythm: regular rhythm Other: S1-S2 present without murmur, rub, ectopy GI: Other: Abdomen soft, nondistended, nontender. Normoactive bowel sounds in all quadrants. Urinary Catheter: Urinary Catheter: patent and draining, urine dark and other (Clear no hematuria noted) Skin: General skin exam: normal color and no rashes or lesions noted Wounds: no wounds Other: Feverish to the touch. Neuro: Cranial nerves: Yes Equal, round and reactive pupils present Speech: normal speech Motor exam (neuro): 5/5 motor strength present throughout Sensory Exam: normal sensation Other: A&O x4 Extrem: General: normal to inspection Psych: Mental Status: mental status grossly normal Affect: normal affect Other: Good insight and judgment, pleasant Objective Data Vital Signs Vital Signs: Vital Signs - 24 hr 03/12/25 14:00 03/12/25 20:00 03/12/25 21:50 Temperature 98.4 F 97.6 F Pulse Rate 73 68 Respiratory Rate 16 18 Blood Pressure 119/70 135/65 Pulse Oximetry 99 96 Oxygen Delivery Room Air 03/13/25 06:00 03/13/25 08:00 Temperature 97.7 F Pulse Rate 65 Respiratory Rate 18 Blood Pressure 155/69 H Pulse Oximetry 96 96 Oxygen Delivery Room Air Intake/Output Intake/Output: Intake & Output 03/10/25 03/11/25 03/12/25 03/13/25 23:59 23:59 23:59 23:59 Intake Total 1600 8310 1720 600 Output Total 850 4860 4220 2200 Balance 750 3450 -2500 -1600 Meds/Results Medications: Active Medications Generic Name Dose Route Start Last Admin Trade Name Freq PRN Reason Stop Dose Admin Acetaminophen 650 mg 03/10/25 15:26 03/11/25 09:51 Acetaminophen 325 Mg Tablet PO 650 mg Q4H PRN Administration Mild Pain (1-3) or Fever Amlodipine Besylate 10 mg 03/11/25 09:00 Amlodipine Besylate 10 Mg Tablet PO DAILY [facility] Atorvastatin Calcium 20 mg 03/11/25 09:00 03/13/25 07:29 Atorvastatin 20 Mg Tablet PO 20 mg DAILY [facility] Administration Dextrose 12.5 gm 03/10/25 15:32 Dextrose 50% 25 Gm/50 Ml Syringe IV PUSH PRN PRN Hypoglycemia Protocol Fentanyl Citrate 25 mcg 03/10/25 13:51 Fentanyl Citrate Inj (*Crx) 100 Mcg/2 Ml Vial IV PUSH Q2M PRN Pain Glucagon 1 mg 03/10/25 15:32 Glucagon For Inj 1 Mg Vial IM PRN PRN Hypoglycemia Protocol Glucose 15 gm 03/10/25 15:32 Glucose Oral Gel 15 Gm Of Glucse In 37.5 Gm Tube PO PRN PRN Hypoglycemia Protocol Dextrose 1,000 mls @ 100 mls/hr 03/10/25 15:32 Dextrose 5% 1,000 Ml IVPB PRN PRN Hypoglycemia Protocol Cefepime HCl 1 gm in 50 mls @ 100 mls/hr 03/13/25 10:00 Maxipime 1 Gm/Ns 50 Ml IVPB 03/26/25 09:29 DAILY KIRSTEN Irbesartan 75 mg 03/11/25 09:00 Irbesartan 75 Mg Tablet PO DAILY K[facility]EN Loperamide HCl 4 mg 03/10/25 17:00 03/13/25 07:29 Loperamide Hcl 2 Mg Capsule PO 4 mg BID KIRSTEN Administration Ondansetron HCl 4 mg 03/10/25 13:51 03/12/25 23:24 Ondansetron Inj 4 Mg/2 Ml Vial IV PUSH 4 mg ONCE PRN Administration Nausea Ondansetron HCl 4 mg 03/10/25 15:26 Ondansetron Inj 4 Mg/2 Ml Vial IV PUSH Q6H PRN Nausea And Vomiting Oxybutynin Chloride 5 mg 03/11/25 16:00 03/13/25 07:30 Oxybutynin Chloride Xl 5 Mg Tab.Er.24 PO 5 mg QAM KIRSTEN Administration Oxycodone HCl 5 mg 03/10/25 13:51 03/11/25 05:11 Oxycodone Hcl (*Crx) 5 Mg Tab Ir PO 5 mg ONCE PRN Administration Pain Pantoprazole Sodium 40 mg 03/11/25 09:00 03/13/25 07:30 Pantoprazole 40 Mg Tablet PO 40 mg QAM KIRSTEN Administration Ropinirole HCl 3 mg 03/10/25 21:00 03/12/25 20:23 Ropinirole Hcl 1 Mg Tablet PO 3 mg HS KIRSTEN Administration Sitagliptin Phosphate 50 mg 03/11/25 09:00 03/13/25 07:30 Sitagliptin Phosphate 50 Mg Tablet PO 50 mg DAILY KIRSTEN Administration Radiology Results: ITS Impressions Retrograde Pyelogram 03/10/25 16:15 IMPRESSION: 1. Fluoroscopy utilized during right intrarenal stent placement which is in expected position. See procedure note for further detail. Labs Labs: Laboratory Results - last 24 hr 03/12/25 03/12/25 03/12/25 11:18 12:01 16:43 WBC RBC Hgb 7.7 L Hct 24.0 L MCV MCH MCHC RDW Plt Count MPV Immature Gran % (Auto) Neut % (Auto) Lymph % (Auto) [place] % (Auto) Eos % (Auto) Baso % (Auto) Lymph # (Auto) [place] # (Auto) Eos # (Auto) Baso # (Auto) Abs Immat Gran (auto) Absolute Neuts (auto) Absolute Nucleated RBC Nucleated RBC % % Immature Plt Fraction Sodium Potassium Chloride Carbon Dioxide Anion Gap BUN Creatinine Estim Creat Clear Calc Estimated GFR Glucose POC Capillary Glucose 113 H 107 H Calcium 03/12/25 03/13/25 03/13/25 20:36 05:37 05:37 WBC 6.9 RBC 2.81 L Hgb 8.3 L 8.4 L Hct 27.1 L MCV MCH MCHC RDW Plt Count MPV Immature Gran % (Auto) Neut % (Auto) Lymph % (Auto) [place] % (Auto) Eos % (Auto) Baso % (Auto) Lymph # (Auto) [place] # (Auto) Eos # (Auto) Baso # (Auto) Abs Immat Gran (auto) Absolute Neuts (auto) Absolute Nucleated RBC Nucleated RBC % % Immature Plt Fraction Sodium Potassium Chloride Carbon Dioxide Anion Gap BUN Creatinine Estim Creat Clear Calc Estimated GFR Glucose POC Capillary Glucose 144 H Calcium 03/13/25 03/13/25 05:37 08:27 WBC RBC Hgb Hct 26.6 L MCV 96.4 MCH 29.5 MCHC 30.6 L RDW 14.0 Plt Count 106 L MPV 10.2 Immature Gran % (Auto) 1.2 H Neut % (Auto) 79.6 H Lymph % (Auto) 11.3 L [place] % (Auto) 6.0 Eos % (Auto) 1.6 Baso % (Auto) 0.3 Lymph # (Auto) 0.78 L [place] # (Auto) 0.4 Eos # (Auto) 0.1 Baso # (Auto) 0.0 Abs Immat Gran (auto) 0.08 H Absolute Neuts (auto) 5.5 Absolute Nucleated RBC 0.020 H Nucleated RBC % 0.3 H % Immature Plt Fraction 2.3 Sodium 136 L Potassium 4.5 Chloride 105 Carbon Dioxide 18 L Anion Gap 13 H BUN 48 H Creatinine 4.21 H Estim Creat Clear Calc 14 Estimated GFR 14 L Glucose 99 POC Capillary Glucose 104 Calcium 8.3 L Quality VTE Prophylaxis VTE prophylaxis: mechanical ordered Hospitalist [facility] Advance Care Plan I have confirmed that the patient's Advanced Care Plan is present, code status is documented, or surrogate decision maker is listed in patient medical record.: Yes Medication Reconciliation I have utilized all available resources to obtain, update and review the patients current medications (includes all prescriptions, OTC, herbals, cannabis, and nutritional supplements).: Yes The patient is not eligible for med reconciliation; the patient is in a emergent medical situation where delaying treatment would jeopardize the patients health.: No
[2025-03-13] MEDS: CEFEPIME 1 GM/NS 50 ML 1 GM/50 ML BAG IVPB (10:31)
[2025-03-13 12:03] LABS: Glucose Point of Care 125 mg/dl (65-105)
[2025-03-13 14:00] VITALS: BP 135/71; PULSE 66; RESP 18; TEMP 36.7; O2SAT 100
[2025-03-13 17:23] LABS: Glucose Point of Care 170 mg/dl (65-105)
[2025-03-13] MEDS: rOPINIRole HCL 1 MG TABLET 3 MG PO (21:39)
[2025-03-13 22:30] VITALS: BP 149/65; PULSE 65; RESP 18; TEMP 36.7; O2SAT 97
[2025-03-14 05:03] LABS: Glucose Point of Care 102 mg/dl (65-105)
[2025-03-14 05:51] LABS: Basophils Percent Auto 0.4 % (0.2-1.2); Eosinophils Absolute Auto 0.1 K/mm3 (0-0.3); Eosinophils Percent Auto 1.4 % (0-4.4); Hemoglobin 8.8 g/dL (14.0-18.0); Immature Granulocyte Absolute 0.07 K/mm3 (0.00-0.031); Immature Granulocyte Percent A 1.3 % (0-0.5); Lymphocytes Percent Auto 19.7 % (18.3-44.2); Mean Corpuscular HGB Conc 31.4 g/dl (32-36); Mean Corpuscular Hemoglobin 29.3 pg (26-34); Mean Corpuscular Volume 93.3 fl (80-100); Mean Platelet Volume 10.4 fl (7.4-10.4); Monocytes Absolute Auto 0.5 K/mm3 (0.1-0.6); Monocytes Percent Auto 9.5 % (2.6-8.5); Neutrophils Absolute Auto 3.8 K/mm3 (1.3-6.7); Neutrophils Percent Auto 67.7 % (45.5-73.1); Platelet Count Result 123 k/mm3 (150-375); White Blood Count 5.6 K/mm3 (4.5-10.0)
[2025-03-14 06:00] VITALS: BP 138/63; PULSE 60; RESP 20; TEMP 36.3; O2SAT 99
[2025-03-14 06:07] LABS: Anion Gap 15 mmol/L (4-12); Blood Urea Nitrogen 48 mg/dL (9-20); Calcium 8.6 mg/dL (8.4-10.2); Carbon Dioxide 17 mmol/L (22-30); Chloride 104 mmol/L (98-107); Estimated CRCL calculation 14 ml/min; Estimated Glomerular Filt Rate 14; Glucose 104 mg/dL (65-110); Potassium 4.5 mmol/L (3.4-5.0); Sodium 136 mmol/L (137-145)
--- NOTE | 2025-03-14 06:23 | P.PNUR_ITS ---
Progress Note: A&P Assessment and Plan (1) Hydroureteronephrosis: Code(s): N13.30 - Unspecified hydronephrosis Status: Acute (2) Bacteremia: Code(s): R78.81 - Bacteremia Status: Acute Assessment and Plan: * Renal function (solitary kidney) continues to slowly improve. Baseline renal function prior to stent removal last week was serum creat. 3.01. * Appreciate Dileep Berry APRN recommendations re: mgmt. UTI. If 2nd set of blood cultures remain negative will plan discharge on oral Cipro later today. Subjective Subjective Date/Time Seen: 03/14/25 06:23 Interval history: Comfortable, voiding well without catheter Review of Systems Cardiovascular: Cardiovascular: Denies chest pain, Denies lightheadedness, Denies palpitations and Denies dyspnea Respiratory: Respiratory: Denies dyspnea Gastrointestinal: Gastrointestinal: Denies diarrhea, Denies nausea and Denies vomiting Genitourinary: Genitourinary: Denies hematuria and Denies dysuria Endocrine: Endocrine: Denies palpitations Exam Const: General: no acute distress Resp: Effort & Inspection: normal respiratory effort GI: Inspection: non-distended GI Palp: No abdominal tenderness and No Guarding due to palpation present (GI) Auscultation: normal bowel sounds Objective Data Vital Signs Vital Signs: Vital Signs - 24 hr 03/13/25 08:00 03/13/25 14:00 03/13/25 20:00 Temperature 98.1 F Pulse Rate 66 Respiratory Rate 18 Blood Pressure 135/71 Pulse Oximetry 96 100 Oxygen Delivery Room Air Room Air 03/13/25 22:30 Temperature 98.0 F Pulse Rate 65 Respiratory Rate 18 Blood Pressure 149/65 H Pulse Oximetry 97 Oxygen Delivery Intake/Output Intake/Output: Intake & Output 03/11/25 03/12/25 03/13/25 03/14/25 23:59 23:59 23:59 23:59 Intake Total 8310 1720 1440 Output Total 4860 4220 3750 1000 Balance 5772 -7616 -5350 -0391 Meds/Results Medications: Active Medications Generic Name Dose Route Start Last Admin Trade Name Freq PRN Reason Stop Dose Admin Acetaminophen 650 mg 03/10/25 15:26 03/11/25 09:51 Acetaminophen 325 Mg Tablet PO 650 mg Q4H PRN Administration Mild Pain (1-3) or Fever Amlodipine Besylate 10 mg 03/11/25 09:00 Amlodipine Besylate 10 Mg Tablet PO DAILY [facility] Atorvastatin Calcium 20 mg 03/11/25 09:00 03/13/25 07:29 Atorvastatin 20 Mg Tablet PO 20 mg DAILY [facility]IRSTEN Administration Dextrose 12.5 gm 03/10/25 15:32 Dextrose 50% 25 Gm/50 Ml Syringe IV PUSH PRN PRN Hypoglycemia Protocol Fentanyl Citrate 25 mcg 03/10/25 13:51 Fentanyl Citrate Inj (*Crx) 100 Mcg/2 Ml Vial IV PUSH Q2M PRN Pain Glucagon 1 mg 03/10/25 15:32 Glucagon For Inj 1 Mg Vial IM PRN PRN Hypoglycemia Protocol Glucose 15 gm 03/10/25 15:32 Glucose Oral Gel 15 Gm Of Glucse In 37.5 Gm Tube PO PRN PRN Hypoglycemia Protocol Dextrose 1,000 mls @ 100 mls/hr 03/10/25 15:32 Dextrose 5% 1,000 Ml IVPB PRN PRN Hypoglycemia Protocol Cefepime HCl 1 gm in 50 mls @ 100 mls/hr 03/13/25 10:00 03/13/25 10:31 Maxipime 1 Gm/Ns 50 Ml IVPB 03/26/25 09:29 100 mls/hr DAILY [facility]IRSTEN Administration Irbesartan 75 mg 03/11/25 09:00 Irbesartan 75 Mg Tablet PO DAILY [facility] Loperamide HCl 4 mg 03/10/25 17:00 03/13/25 16:16 Loperamide Hcl 2 Mg Capsule PO 4 mg BID KIRSTEN Administration Ondansetron HCl 4 mg 03/10/25 13:51 03/12/25 23:24 Ondansetron Inj 4 Mg/2 Ml Vial IV PUSH 4 mg ONCE PRN Administration Nausea Ondansetron HCl 4 mg 03/10/25 15:26 Ondansetron Inj 4 Mg/2 Ml Vial IV PUSH Q6H PRN Nausea And Vomiting Oxybutynin Chloride 5 mg 03/11/25 16:00 03/13/25 07:30 Oxybutynin Chloride Xl 5 Mg Tab.Er.24 PO 5 mg QAM KRISTEN Administration Oxycodone HCl 5 mg 03/10/25 13:51 03/11/25 05:11 Oxycodone Hcl (*Crx) 5 Mg Tab Ir PO 5 mg ONCE PRN Administration Pain Pantoprazole Sodium 40 mg 03/11/25 09:00 03/13/25 07:30 Pantoprazole 40 Mg Tablet PO 40 mg QAM KIRSTEN Administration Ropinirole HCl 3 mg 03/10/25 21:00 03/13/25 21:39 Ropinirole Hcl 1 Mg Tablet PO 3 mg HS KIRSTEN Administration Sitagliptin Phosphate 50 mg 03/11/25 09:00 03/13/25 07:30 Sitagliptin Phosphate 50 Mg Tablet PO 50 mg DAILY KIRSTEN Administration Radiology Results: ITS Impressions Retrograde Pyelogram 03/10/25 16:15 IMPRESSION: 1. Fluoroscopy utilized during right intrarenal stent placement which is in expected position. See procedure note for further detail. Labs Labs: Laboratory Results - last 24 hr 03/12/25 03/13/25 03/13/25 20:36 08:27 11:50 WBC RBC Hgb Hct MCV MCH MCHC RDW Plt Count MPV Immature Gran % (Auto) Neut % (Auto) Lymph % (Auto) [place] % (Auto) Eos % (Auto) Baso % (Auto) Lymph # (Auto) [place] # (Auto) Eos # (Auto) Baso # (Auto) Abs Immat Gran (auto) Absolute Neuts (auto) Absolute Nucleated RBC Nucleated RBC % Sodium Potassium Chloride Carbon Dioxide Anion Gap BUN Creatinine Estim Creat Clear Calc Estimated GFR Glucose POC Capillary Glucose 144 H 104 125 H Calcium 03/13/25 03/13/25 03/14/25 17:04 21:15 05:26 WBC 5.6 RBC 3.00 L Hgb 8.8 L Hct 28.0 L MCV 93.3 MCH 29.3 MCHC 31.4 L RDW 14.0 Plt Count 123 L MPV 10.4 Immature Gran % (Auto) 1.3 H Neut % (Auto) 67.7 Lymph % (Auto) 19.7 [place] % (Auto) 9.5 H Eos % (Auto) 1.4 Baso % (Auto) 0.4 Lymph # (Auto) 1.10 [place] # (Auto) 0.5 Eos # (Auto) 0.1 Baso # (Auto) 0.0 Abs Immat Gran (auto) 0.07 H Absolute Neuts (auto) 3.8 Absolute Nucleated RBC 0.000 Nucleated RBC % 0.0 Sodium 136 L Potassium 4.5 Chloride 104 Carbon Dioxide 17 L Anion Gap 15 H BUN 48 H Creatinine 4.16 H Estim Creat Clear Calc 14 Estimated GFR 14 L Glucose 104 POC Capillary Glucose 170 H 102 Calcium 8.6
[2025-03-14 08:07] LABS: Glucose Point of Care 107 mg/dl (65-105)
[2025-03-14] MEDS: ATORVASTATIN 20 MG TABLET PO (08:50)
[2025-03-14] MEDS: LOPERAMIDE HCL 2 MG CAPSULE 4 MG PO (08:50)
[2025-03-14] MEDS: SITagliptin PHOSPHATE 50 MG TABLET PO (08:50)
[2025-03-14] MEDS: oxyBUTYnin CHLORIDE XL 5 MG TAB.ER.24 PO (08:50)
[2025-03-14] MEDS: CEFEPIME 1 GM/NS 50 ML 1 GM/50 ML BAG IVPB (08:50)
[2025-03-14] MEDS: PANTOPRAZOLE 40 MG TABLET PO (08:50)
[2025-03-14 10:08] VITALS: O2SAT 97
[2025-03-14 11:42] LABS: Glucose Point of Care 105 mg/dl (65-105)
--- NOTE | 2025-03-15 17:08 | PM.DS ---
DS: Admitting Diagnosis Discharge Date 03/14/25 Admitting Diagnosis Acute kidney injury, right hydronephrosis DS: Discharge Diagnosis Discharge Diagnosis (1) History of left nephrectomy: Code(s): Z90.5 - Acquired absence of kidney Status: Acute (2) Hydroureteronephrosis: Code(s): N13.30 - Unspecified hydronephrosis Status: Acute (3) Acute on chronic kidney failure: Qualifiers: Acute renal failure type: unspecified Chronic kidney disease stage: unspecified stage Qualified Code(s): N17.9 - Acute kidney failure, unspecified; N18.9 - Chronic kidney disease, unspecified Code(s): N17.9 - Acute kidney failure, unspecified; N18.9 - Chronic kidney disease, unspecified Status: Acute DS: Summary Hospital Course Hospital Course: patient well known to us from recent evaluation for right hydronephrosis in a solitary right kidney. Had recently been admitted for pyelonephritis at which time Dr. Gallo placed a ureteral stent. One month later we tried removing the stent but within 24 hours he developed progressive renal insufficiency and a fever. We replaced the stent and admitted for IV antibiotic therapy. Both urine and blood cultures grew Enterobacter. He was initially started on ceftriaxone but switched to cefepime. With sensitivities available we switched him to oral ciprofloxacin. Follow-up urine cultures were negative we discharged him on a 14 day course of Cipro. His renal function slowly improved throughout the course of this admission. His baseline creatinine was 3.0 prior to admission. Time Spent with Patient Time attestation: Total time spent providing and/or coordinating discharge services: Exam Const: General: no acute distress Resp: Effort & Inspection: normal respiratory effort GI: Inspection: non-distended GI Palp: No abdominal tenderness and No Guarding due to palpation present (GI) Auscultation: normal bowel sounds DS: Data Data Completed and Pending Labs on day of discharge: Preliminary micro results at discharge 03/12/25 07:53 Blood Culture - Preliminary Blood 03/12/25 08:01 Blood Culture - Preliminary Blood Discharge Plan Discharge Attending physician on discharge: James Noguera Consulting providers: Katie Berry; Nichelle Jackson; Chi Lopez; Yohannes Chew; Justin Orlando Discharging Clinician: James Noguera Patient Disposition: Home Activity: other - see discharge instructions Diet: other - see discharge instructions Wound Care Instructions: other - see discharge instructions Discharge Instructions: 1) Activity: no driving or important decisions x24 hours. 2) Diet: resume your normal, pre-admission diet. 3) Follow-up: follow-up Saturday 03/17 morning (anytime). Patient Instructions: Antibiotic Form, Ciprofloxacin (By mouth), Hydronephrosis (DC), Cystoscopy (DC) Patient Language: Citizen Of [place] Stand Alone Forms: General Discharge Information Follow-up/Referrals: James Noguera MD [Physician] - Discharge Medications: New ciprofloxacin HCl [Cipro] 250 mg tablet 250 mg PO Q12H Qty: 28 0RF Continued atorvastatin 20 mg tablet 20 mg PO DAILY ropinirole 3 mg tablet 3 mg PO HS amlodipine 10 mg tablet 10 mg PO DAILY omeprazole 20 mg capsule,delayed release(DR/EC) 20 mg PO DAILY irbesartan 75 mg tablet 75 mg PO DAILY Januvia 50 mg tablet 50 mg PO DAILY Nu-Mag 71.5 mg tablet,delayed release (DR/EC) 71.5 mg PO DAILY loperamide [Anti-Diarrheal (loperamide)] 2 mg capsule 4 mg PO BID cholecalciferol (vitamin D3) 25 mcg (1,000 unit) capsule 25 mcg PO DAILY cyanocobalamin (vitamin B-12) 1,000 mcg capsule 2,000 mcg PO DAILY Date of admission: 03/10/25 15:26 Primary Care Provider: Rach,Benton KOLB Admitting Provider: James Noguera Attending physician on admission: James Noguera Condition: Stable
== END 2025-03-14 13:01 | disposition home or self-care (01) | DRG 854 ==
LOC: ANH3MED 17:43
PROVIDERS: Nurse Practitioner Family; Student in an Organized Health Care Education/Training Program; Admitting Provider Urology; Visit Provider Urology
PROC: 0T768DZ Dilation of Right Ureter with Intraluminal Device, Via Natural or Artificial Opening Endoscopic (ICD-10-PCS; CPT 52352; principal; 2025-03-10 15:30)
DX: A41.81 Sepsis due to Enterococcus (principal); N17.9 Acute kidney failure, unspecified; N13.30 Unspecified hydronephrosis; N39.0 Urinary tract infection, site not specified; R65.20 Severe sepsis without septic shock; I12.9 Hypertensive chronic kidney disease with stage 1 through stage 4 chronic kidney disease, or unspecified chronic kidney disease; N18.9 Chronic kidney disease, unspecified; G25.81 Restless legs syndrome; E87.5 Hyperkalemia; E78.5 Hyperlipidemia, unspecified; D63.1 Anemia in chronic kidney disease; E11.9 Type 2 diabetes mellitus without complications; Z85.038 Personal history of other malignant neoplasm of large intestine; Z90.5 Acquired absence of kidney
CPT/HCPCS: 36415; 36430; 74420; 80048; 81001; 82948; 83605; 84145; 85014; 85018; 85025; 85055; 86850; 86900; 86901; 86923; 87040; 87086; 87186; 94640; A9270; C1758; C1769; C2617; J0612; J0692; J0696; J1815; J2405; J2704; J3010; J7040; J7042; J7050; J7120; P9016

== ENCOUNTER 2025-04-06 08:56 | Inpatient (IN) | payer MEDICARE, SELFPAY ==
[2025-04-06] VITALS (12 sets, daily range): BP systolic 126–157; BP diastolic 57–80; PULSE 68–78; RESP 14–17; TEMP 36.3–36.8; O2SAT 98–100; BMI 26.4
--- NOTE | ~2025-04-06 | US_ITS ---
US renal BI 04/09/2025 11:54 Procedure: Realtime transabdominal ultrasound of the kidneys and bladder. Indication: Acute renal insufficiency Comparison: No prior studies for comparison. Findings: Right renal echotexture is normal without contour deforming mass or renal calculus. There i s a right renal cyst measuring 1 cm. There is moderate right hydronephrosis. The right kidney measure s 15.2 cm. Left kidney is surgically absent. Uriarte catheter present in the bladder. Impression: 1: Chronic moderate right hydronephrosis. Reviewed, dictated and finalized at location A. Impression: 1: Chronic moderate right hydronephrosis.
--- NOTE | ~2025-04-06 | CT_ITS ---
Clinical Indication: Renal failure CT Scan of the Chest, Abdomen, and Pelvis without Contrast: Technique: Contiguous sections were acquired throughout the chest, abdomen, and pelvis without IV con trast administration. Dose reduction technique was used on this scan by utilizing automated exposure control and iterative reconstruction technique. The dose-length product (DLP) was 476.55 mGy-cm. COMPARISON: 02/19/2025 Findings: There is no evidence of any significant mediastinal, hilar or axillary lymphadenopathy. The mediastin al soft tissues appear normal. There is no evidence of pleural or pericardial effusion. The lungs are clear. No pulmonary nodules or infiltrates are noted. The liver, spleen, pancreas, gallbladder, and adrenal glands are within normal limits. No evidence o f aortic aneurysm. No lymphadenopathy. Status post left nephrectomy. There is moderate to severe right hydroureteronephrosis, similar to lance or exam, with right ureteral stent in place. Status post total colectomy with ileostomy present. No bowel obstruction. There is probable mild diffuse urinary bladder wall thickening. There is infiltration of presacral/pr ecoccygeal soft tissues. No distinct pelvic mass seen on noncontrast exam. There is advanced degenerative spondylosis throughout the lumbar spine. Impression: Moderate to advanced right hydroureteronephrosis is similar to prior exam, now with ureteral stent in place. Status post total colectomy with stable infiltrative changes in the presacral/precoccygeal soft tissu es, which could be postoperative in nature. No discrete mass lesion evident. Appearance is similar to prior exam. Probable cystitis. Correlate with urinalysis. No significant abnormality in the chest. Reviewed, dictated and finalized at [facility]. Impression: Moderate to advanced right hydroureteronephrosis is similar to prior exam, now with ureteral stent in place. Status post total colectomy with stable infiltrative changes in the presacral/p recoccygeal soft tissues, which could be postoperative in nature. No discrete m ass lesion evident. Appearance is similar to prior exam. Probable cystitis. Correlate with urinalysis. No significant abnormality in the chest.
--- NOTE | ~2025-04-06 | NM_ITS ---
EXAMINATION: NM renal flow and function DATE: 04/10/2025 13:29 INDICATION: Unresolving acute on chronic kidney disease. TECHNIQUE: 8.3 mCi Tc-99m MAG3 was administered IV. The patient was scanned in the supine position. A posterior abdominal radionuclide angiogram was obtained. A subsequent time course of static images of the kidneys, ureters, and bladder was obtained. COMPARISON: None FINDINGS: The posterior abdominal radionuclide angiogram and sequential static images show normal size, positio n, and morphology of the right kidney. A left kidney is not visualized. Peak renal parenchymal uptake was released 28 min in the right kidney (normal peak 3-5 minutes) with continually rising right moe l activity curve. IMPRESSION: 1. No evident left renal activity with absent left kidney on prior CT. 2. Markedly delayed time to peak activity in the right kidney which could be due to high-grade obstru ction with moderate right hydronephrosis despite the presence of an internal ureteral stent on recent prior CT versus severe nonspecific nephropathy of other indeterminate etiology. Reviewed, dictated and finalized at location A. IMPRESSION: 1. No evident left renal activity with absent left kidney on prior CT. 2. Markedly delayed time to peak activity in the right kidney which could be du e to high-grade obstruction with moderate right hydronephrosis despite the pres ence of an internal ureteral stent on recent prior CT versus severe nonspecific nephropathy of other indeterminate etiology.
--- NOTE | ~2025-04-06 | XR_ITS ---
XR chest 1V portable Ordering provider: Nestor Arreaga MD History: 74 years Male with . cough . Comparison: February 17, 2025 FINDINGS: MEDIASTINUM: The cardiac silhouette is not enlarged. LUNGS: No infiltrates, effusions or pneumothorax. OTHER: No free air under the diaphragm. Degenerative changes of the spine. IMPRESSION: No acute cardiopulmonary pathology. Reviewed, dictated and finalized at location A.
--- NOTE | 2025-04-06 09:07 | ECG_ITS ---
Test Date: 2025-04-06 09:04:10 Measurements Intervals [place] Rate: 79 P: 66 AL: 184 QRS: 2 QRSD: 92 T: 58 QT: 375 QTc: 431 Interpretive Statements SINUS RHYTHM Compared to ECG 02/17/2025 18:28:33 No significant changes Electronically Signed On 04-06-2025 10:11:20 CDT by Rita Murry M.D.
--- OUTSIDE RECORDS SUMMARY | 2025-04-06 09:07 | XMS_ITS | Clinical Summary ---
Author Organization [facility] Address [address] [place] [address] Care Team Providers Care Javascript Front End Developer Name Role Phone Justin Avery MD Unavailable Benton Loyd MD Primary Care Provider [phone] Deng Fagan MD Unavailable Padmini Gonzalez MD Unavailable [phone] Nathaniel Merchant MD Unavailable Allergies Active Allergy Reactions Criticality Noted Date Comments Unclassified Drug Unknown,Other (See comments) Low 08/24/2023 due to patient only having one kidney Medications amLODIPine (NORVASC) 10 mg tabletIndicatio ns:hypertension Take 1 tablet (10 mg total) by mouth every morning 3 8 Active atorvastatin (LIPITOR) 20 mg tabletIndicatio ns:hyperlipidem ia Take 1 tablet (20 mg total) by mouth every morning 2 8 Active loperamide (IMODIUM) 2 mg capsuleIndicati ons:diarrhea,il eostomy Take 2 capsules (4 mg total) by mouth 2 (two) times a day 7 Active omeprazole (PriLOSEC) 20 mg capsuleIndicati ons:Stress Ulcer Prophylaxis,Levi atment of Non-Bleeding Gastric Disorder,gerd Take 1 capsule (20 mg total) by mouth every morning 2 8 Active rOPINIRole (REQUIP) 3 mg tabletIndicatio ns:Restless Legs Syndrome Take 1 tablet (3 mg total) by mouth nightly 0 Active JANUVIA 50 mg tabletIndicatio ns:type 2 diabetes mellitus Take 1 tablet (50 mg total) by mouth every morning 1 8 Active cyanocobalamin (Vitamin B-12) 500 mcg tabletIndicatio ns:Prevention of Vitamin B12 Deficiency Take 2 tablets (1,000 mcg total) by mouth every morning Active cholecalciferol (VITAMIN D-3) 2,000 unit capsuleIndicati ons:Vitamin D Deficiency Take 0.5 capsules (1,000 Units total) by mouth every morning 0 Active NU-MAG 71.5 mg tablet,delayed release (DR/EC)Indicati ons:hypomagnese valeri Take 1 tablet by mouth every morning 0 9 Active irbesartan (AVAPRO) 75 mg tabletIndicatio ns:hypertension Take 1 tablet (75 mg total) by mouth every morning 9 Active acetaminophen (TYLENOL) 500 mg tabletIndicatio ns:Pain Take 2 tablets (1,000 mg total) by mouth every 6 (six) hours as needed for pain Active oxyCODONE (ROXICODONE) 5 mg immediate release tabletIndicatio ns:Pain Take 1 tablet (5 mg total) by mouth every 4 (four) hours as needed for pain (second line) for up to 5 doses 5 tablet 2 Active senna (SENOKOT) 8.6 mg tablet Take 1 tablet by mouth daily as needed for constipation 30 tablet 2 Active Additional Information Patient not taking.Reported on 11/27/2024 mupirocin (BACTROBAN) 2 % ointmentIndicat ions:Minor Bacterial Skin Infections Apply topically 3 (three) times a day 22 g 2 Active Active Problems Problem Noted Date Diagnosed Date Stage 4 chronic kidney disease 01/01/2025 Urge urinary incontinence 06/04/2022 Overview (06/04/2022): Added automatically from request for surgery [id number] OAB (overactive bladder) 06/04/2022 Overview (06/04/2022): Added automatically from request for surgery [id number] 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 Overview (02/15/2020): Added automatically from request for surgery [id number] Ileostomy care 09/23/2017 History of malignant neoplasm of rectum 08/18/20 14 Crohn's disease of rectum 12/07/2009 Encounters Date Type Department Care Team Description 02/09/2025 Results Follow-Up [facility] at [address] [address] Jackson Chiledrs NP 02/08/2025 11:26 AM CDT - 02/08/2025 11:59 PM CDT Hospital Encounter [address] [address] Cystitis with hematuria Discharge Disposition: Discharge to home or self care 02/08/2025 8:45 AM CDT Office Visit [facility] at [address] [address] Radha Baca PA Cystitis with hematuria (Primary Dx) from Last 3 Months Immunizations [...] 02/24/2018 Surgical History Surgery Date Site/Laterality Comments [place] REVISION PRIOR HYPOSPADIAS REPAIR DSJ&EXC RCNSTJ Surg Penis Repair Of Hypospadias Cripple - 03/11/05 (Added by TW Conv) [place] CYSTOURETHROSCOPY W/INTERNAL URETHROTOMY Cystoscopy With Internal Urethrotomy, Direct Vision - 03/30/07 (Added by TW Conv) [place]Y CYSTOURETHROSCOPY W/STEROID INJECTION STRICTURE Cystoscopy For Urethral Stricture With Steroid Injection - 03/30/07 (Added by TW Conv) WY NJX RETROGRADE URETHROCSTOGRAPY Bladder Injection Procedure For Retrograde Cystourethrogram - 03/30/07 (Added by TW Conv) WY COLECTOMY TOT ABDL W/PROCTECTOMY W/ILEOSTOMY Total Proctocolectomy - 07/21/06 (Added by TW Conv) WY APPENDECTOMY 11/30/1964 - 11/29/1965 Appendectomy - (Added by TW Conv) WY COLCT TOT ABDL W/O PRCTECT W/ILEOST/ILEOPXTS 11/30/2005 - 11/29/2006 Total Abdominal Colectomy With Ileostomy - (Added by TW Conv) ILEOSTOMY Ileostomy Care - (Added by TW Conv) [place]Y NEPHRECTOMY W/PRTL URETERECTOMY W/OPEN RIB RESCJ 11/30/2011 [...] on file 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 Gender Identity Not on file Sexual Orientation [...] (5' 9 ) 12/12/2024 12:0 8 PM LOCKSTITCH FRONT MAKER Body Mass Index 26.29 12/12/2024 12:08 PM LOCKSTITCH FRONT MAKER Plan of Treatment Health Maintenance Due Date Last Done Comments Colon Cancer Screening-Colonoscopy 1950 Depression Screening 1950 Hepatitis C Screening 1950 Hepatitis B Screening 1968 Zoster Vaccine (1 of 2) 2000 Well Visit 65+ 2015 Fall Risk Assessment 08/14/2023 08/14/2022 Covid-19 Vaccine (2023-2 5 season) 2024 05/05/2022, 10/02/2021, 01/29/2021, Additional history exists Influenza Vaccine (Season Ended) 2025 09/17/2022, 09/06/2021, 08/29/2021, Additional history exists DTaP/Tdap/Td Vaccine (3 - Td or Tdap) 02/25/2028 02/24/2018, 02/24/2018 Pneumococcal vaccine 65+ Completed 019, 04/14/2016, 04/02/2015, Additional history exists Medical Devices Implanted Type Area Electronics Production Supervisor Device Identifier Shelf Expiration Date Model / Serial / Lot Medtronic Inc Generator Neurostimulator Bowel Bladder Recharge Free Interstim X [id number] - [id number] Implanted:Qty: 1 on 08/13/2022 by Padmini Gonzalez MD at [facility] Neurostimulator Med[employer]onic Inc [id number] / / Medtronic Inc Interstim 28cm Quadripolar Mri Rn Birthing Neurostimulator [id number] - Sna - [id number] Implanted:Qty: 1 on 07/30/2022 by Padmini Gonzalez MD at [facility] Other - see comments N/A: Back Med[employer]onic Inc 12/19/2023 [id number] / NA / [id number] Description:Lower back Implant pause performed interstim Medtronic Inc Interstim 100cm Percutaneous Electrode Insulated Kit [id number] - Sna - [id number] Implanted:Qty: 1 on 07/30/2022 by Padimni Gonzalez MD at [facility] Other - see comments N/A: Back Med[employer]onic Inc 04/25/2024 [id number] / NA / [id number] Description:Lower back Implant pause performed interstim Procedures Procedure Name Priority Date/Time Associated Diagnosis Comments URINE CULTURE Routine 02/08/2025 11:26 AM CDT Cystitis with hematuria POCT URINALYSIS DIPSTICK Routine 02/08/2025 8:47 AM CDT Cystitis with hematuria from Last 3 Months Results * Urine culture Urine, clean voided (02/08/2025 11:26 AM CDT) Report Final Report: Less than 100,000 colonies/mL (clinically insignificant growth based on current clinical standards) Comment:Testing performed by : [facility], [address] [place]., [address] Organism (CLINICALLY INSIGNIFICANT GROWTH JUSTINE Urine, clean voided 02/08/2025 11:26 AM CDT 02/08/2025 6:04 PM CDT Narrative JUSTINE CARSON - 02/09/2025 7:50 PM CDT Testing performed by [facility] Microbiology Laboratory ([phone]) Shante Mcclure NP LAB MICROBIOLOGY - GENERAL ORDERABLES Final Result JUSTINE [address] Department [place] [address] * (ABNORMAL) POCT urinalysis dipstick (02/08/2025 8:47 AM CDT) Color, Urine, POC Dark Yellow Clarity, ur, POC Cloudy(A) Clear Glucose, ur, POC Negative Negative MG/DL Bilirubin, ur, POC Negative Negative, Small, Moderate, Large Ketones, ur, POC Negative Negative Specific [place], POC 1.025 1.003 - 1.030 Blood, ur, POC Large(A) Negative pH, ur, POC 5.5 5.0 - 8.0 Protein, ur, POC 300.(A) Negative Urobilinogen, urine, POC 0.2 0.2 - 1.0 mg/dL Nitrite, ur, POC Negative Negative Leukocytes, ur, POC Small(A) Negative Lot Number [id number] Urine 02/08/2025 8:47 AM CDT Shante Mcclure NP POINT OF CARE TEST ORDERAB LES Final Result from Last 3 Months Insurance T MEDICARE [facility] MEDICARE T MEDICARE Advance Directives For more information, please contact: [phone] Documents on File Type Date Recorded Patient Accounts Receivable Assistant Expl anation ADVANCE DIRECTIVE 10/02/2020 11:54 AM Marcos r of Intellectual Property Legal Assistant-Medical * Full Code (Latest Code Status on File) Date Activated Date Inactivated Comments 08/13/2022 11:15 AM 08/14/2022 1:47 PM * Full Code Date Activated Date Inactivated Comments 11/11/2021 4:15 PM 11/11/2021 9:54 PM Care Teams Javascript Front End Developer Relationship Specialty Start Date End Date Benton Loyd MD [address] [facility] [address], [place] [address] PCP - General Internal Medicine 08/24/20 Justin Avery MD Surgeon Colon and Rectal Surgery 10/18/19 Deng Fagan MD [address] [facility] [address], [place] [address] Consulting Physician Urology 10/25/20 [place] [address] [place] [address] Consulting Physician Urology 11/09/22 Nathaniel Merchant MD 1 [facility] DIV [place] [address] Consulting Physician Gastroenterology 11/09/22
--- OUTSIDE RECORDS SUMMARY | 2025-04-06 09:07 | XMS_ITS | Clinical Summary ---
Author Organization [facility] Address [address] [place] [address] Care Team Providers Care Auto Parts Delivery Driver Name Role Phone Unavailable Primary Care Provider [...] Td Vaccines ( 1 - Tdap) 1969 Pneumococcal Vaccine: 50+ Ye ars (1 of 1 - PCV) 2000 Zoster Vaccines (1 of 2) 2000 COVID-19 Vaccine ( - 2023-2 5 season) [...]
--- OUTSIDE RECORDS SUMMARY | 2025-04-06 09:07 | XMS_ITS | Referral Summary ---
Author Organization [facility] Address [address] [place] [address] Care Team Providers Care Autocad Designer Name Role Phone Justin Avery MD Unavailable Benton Loyd MD Primary Care Provider [phone] Deng Fagan MD Unavailable Padmini Gonzalez MD Unavailable [phone] Nathaniel Merchant MD Unavailable Encounters Date Type Department Care Team Description 02/09/2025 Results Follow-Up [facility] at [address] [address] Jackson Childers NP 02/08/2025 11:26 AM CDT - 02/08/2025 11:59 PM CDT Hospital Encounter [address] [address] Cystitis with hematuria Discharge Disposition: Discharge to home or self care 02/08/2025 8:45 AM CDT Office Visit [facility] at [address] [id number] Radha Baca PA Cystitis with hematuria (Primary Dx) from Last 3 Months Allergies [...] (06/04/2022): Added automatically from request for surgery [id number] OAB (overactive bladder) 06/04/2022 Overview (06/04/2022): Added automatically from request for surgery [id number] 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 Overview (02/15/2020): Added automatically from request for surgery [id number] Ileostomy care 09/23/2017 History of malignant neoplasm [...] on file Legal 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 Neurostimulator Med[employer]onic Inc 9 [id number] / / Medtronic Inc Interstim 28cm Quadripolar Mri Helper Maintenance Cleaning Neurostimulator [id number] - Sna - [id number] Implanted:Qty: 1 on 07/30/2022 by Padmini Gonzalez MD at [facility] Other - see comments N/A: Back Medtronic Inc 12/19/2023 [id number] / NA / [id number] Description:Lower back Implant pause performed interstim Medtronic Inc Interstim 100cm Percutaneous Electrode Insulated Kit [id number] - Sna - [id number] Implanted:Qty: 1 on 07/30/2022 by Padmini Gonzalez MD at [facility] Other - see comments N/A: Back Med[employer]onic Inc 04/25/2024 [id number] / NA / [id number] Description:Lower back Implant pause performed interstim Procedures [...] current clinical standards) Comment:Testing performed by : [facility], [address] [place]., [address] Organism (CLINICALLY INSIGNIFICANT GROWTH JUSTINE CARSON Urine, clean voided 02/08/2025 11:26 AM CDT 02/08/2025 6:04 PM CDT Narrative JUSTINE CARSON - 02/09/2025 7:50 PM CDT Testing performed by [facility] Microbiology Laboratory ([phone]) us Shante Mcclure NP LAB MICROBIOLOGY - GENERAL ORDERABLES Final Result JUSTINE CARSON [address] Department [place] [address] * (ABNORMAL) POCT urinalysis dipstick (02/08/2025 8:47 AM CDT) Color, Urine, POC Dark Yellow Clarity, ur, POC Cloudy(A) Clear Glucose, ur, POC Negative Negative MG/DL Bilirubin, ur, POC Negative Negative, Small, Moderate, Large Ketones, ur, POC Negative Negative Specific [place], POC 1.025 1.003 - 1.030 Blood, ur, POC Large(A) Negative pH, ur, POC 5.5 5.0 - 8.0 Protein, ur, POC 300.(A) Negative Urobilinogen, urine, POC 0.2 0.2 - 1.0 mg/dL Nitrite, ur, POC Negative Negative Leukocytes, ur, POC Small(A) Negative Lot Number [id number] Urine 02/08/2025 8:47 AM CDT Shante Mcclure NP POINT OF CARE TEST ORDERAB LES Final Result from Last 3 Months Insurance [employer] MEDICARE [employer] MEDICARE [employer] MEDICARE Advance Directives For more information, please contact: [phone] Documents on File Type Date Recorded Patient Trim Mounter Expl anation ADVANCE DIRECTIVE 10/02/2020 11:54 AM Marcos r of Trawl Net Maker-Medical * Full Code (Latest Code Status on File) Date Activated Date Inactivated Comments 08/13/2022 11:15 AM 08/14/2022 1:47 PM * Full Code Date Activated Date Inactivated Comments 11/11/2021 4:15 PM 11/11/2021 9:54 PM Care Teams Autocad Designer Relationship Specialty Start Date End Date Benton Loyd MD [address] [address] PCP - General Internal Medicine 08/24/20 Justin Avery MD Surgeon Colon and Rectal Surgery 10/18/19 Deng Fagan MD [address] [facility] [address] [address] Consulting Physician Urology 10/25/20 [place] [address] [place] [address] Consulting Physician Urology 11/09/22 Nathaniel Merchant MD 1 [facility] [place] [address] Consulting Physician Gastroenterology 11/09/22
--- OUTSIDE RECORDS SUMMARY | 2025-04-06 09:07 | XMS_ITS | Encounter Summary ---
Author Organization [facility] Address [address] [place] [address] Phone Care Team Providers Care Canary Raiser Name Role Phone Justin Avery MD Unavailable [phone] Benton Loyd MD Primary Care Provider [phone] Deng Fagan MD Unavailable [phone] Padmini Gonzalez MD Unavailable [phone] Nathaniel Merchant MD Unavailable [phone] Encounter Details Date Type Department Care Team (Late st Contact Info) Description 10/01/2022 Telephone [facility] Department of Surgery, Section of Colon and Rectal Surgery [address] [facility] Advanced Medicine 12th Floor, [place] [address] Sheyla Rhoades Social History Tobacco [...] on file 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 Gender Identity Not on file Sexual Orientation Not on file documented as of this encounter Plan of Treatment Not on file documented as of this encounter Visit Diagnoses Not on filedocumented in this encounter Additional Health Concerns Infection Onset Date Last Indicated Resolved Time COVID: Suspected 12/12/2024 12/12/2024 12/12/2024 9:32 AM CRAFT SUPERINTENDENT documented as of this encounter Care Teams Canary Raiser Relationship Specialty Start Date End Date Benton Loyd MD [address] [facility] [address] [address] PCP - General Internal Medicine 08/24/20 Justin Avery MD Surgeon Colon and Rectal Surgery 10/18/19 Deng Fagan MD [address] [facility] [address] [address] Consulting Physician Urology 10/25/20 [place] [address] [place] [address] Consulting Physician Urology 11/09/22 Nathaniel Merchant MD 1 [facility] [place] [address] Consulting Physician Gastroenterology 11/09/22 documented as of this encounter
--- OUTSIDE RECORDS SUMMARY | 2025-04-06 09:07 | XMS_ITS | Encounter Summary ---
Author Organization [facility] Address [address] [place] [address] Care Team Providers Care Drama Director Name Role Phone Justin Avery MD Unavailable [phone] Benton Loyd MD Primary Care Provider [phone] Deng Fagan MD Unavailable [phone] Padmini Gonzalez MD Unavailable [phone] Nathaniel Merchant MD Unavailable [phone] Encounter Details Date Type Department Care Team (Late st Contact Info) Description 02/09/2025 Results Follow-Up 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 Gender Identity Not on file Sexual Orientation [...] on filedocumented in this encounter Care Teams Drama Director Relationship Specialty Start Date End Date Benton Loyd MD [address] [place] [address], [place] [address] PCP - General Internal Medicine 08/24/20 Justin Avery MD Surgeon Colon and Rectal Surgery 10/18/19 Deng Fagan MD [address] [place], [place] [address] Consulting Physician Urology 10/25/20 Padmini Gonzalez MD [address] [address] Consulting Physician Urology 11/09/22 Nathaniel Merchant MD 1 [facility] DIV [place] [address] Consulting Physician Gastroenterology 11/09/22 documented as of this encounter
[2025-04-06 09:37] LABS: Hematocrit 25.7 % (42.0-52.0); Hemoglobin 7.7 g/dL (14.0-18.0); Immature Granulocyte Absolute 0.14 K/mm3 (0.00-0.031); Immature Granulocyte Percent A 3.2 % (0-0.5); Lymphocytes Absolute Auto 0.47 K/mm3 (0.9-3.2); Lymphocytes Percent Auto 10.6 % (18.3-44.2); Mean Corpuscular Hemoglobin 28.6 pg (26-34); Mean Corpuscular Volume 95.5 fl (80-100); Mean Platelet Volume 9.9 fl (7.4-10.4); Monocytes Absolute Auto 0.1 K/mm3 (0.1-0.6); Monocytes Percent Auto 2.3 % (2.6-8.5); Neutrophils Absolute Auto 3.7 K/mm3 (1.3-6.7); Neutrophils Percent Auto 83.9 % (45.5-73.1); Platelet Count Result 204 k/mm3 (150-375); Red Blood Count 2.69 M/mm3 (4.6-6.20); Red Cell Distribution Width 14.9 % (11.5-14.5); White Blood Count 4.4 K/mm3 (4.5-10.0)
--- OUTSIDE RECORDS SUMMARY | 2025-04-06 09:47 | XMS_ITS | Encounter Summary ---
Author Organization [facility] Address [address] [place] [address] Care Team Providers Care Concrete Spreader Name Role Phone Justin Avery MD Unavailable [phone] Benton Loyd MD Primary Care Provider [phone] Deng Fagan MD Unavailable [phone] Padmini Gonzalez MD Unavailable [phone] Nathaniel Merchant MD Unavailable [phone] Encounter Details Date Type Department Care Team (Late st Contact Info) Description 02/09/2025 Results Follow-Up [facility] at [address] [address] Jackson Childers NP [address] [place] [address] [address] [place] [address] Social History Tobacco Use Types [...] on file Legal 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 Gender Identity Not on file Sexual Orientation [...] on filedocumented in this encounter Care Teams Concrete Spreader Relationship Specialty Start Date End Date Benton Loyd MD [address] [place] [address], [place] [address] PCP - General Internal Medicine 08/24/20 Justin Avery MD Surgeon Colon and Rectal Surgery 10/18/19 Deng Fagan MD [address] [place], [place] [address] Consulting Physician Urology 10/25/20 Padmini Gonzalez MD [address] [address] Consulting Physician Urology 11/09/22 Nathaniel Merchant MD 1 [facility] [place] [address] Consulting Physician Gastroenterology 11/09/22 documented as of this encounter
--- OUTSIDE RECORDS SUMMARY | 2025-04-06 09:47 | XMS_ITS | Referral Summary ---
Author Organization [facility] Address [address] [place] [address] Care Team Providers Care Allergy And Immunology Chief Name Role Phone Justin Avery MD Unavailable Benton Loyd MD Primary Care Provider [phone] Deng Fagan MD Unavailable Padmini Gonzalez MD Unavailable [phone] Nathaniel Merchant MD Unavailable [phone] Encounters Date Type Department Care Team Description 02/09/2025 Results Follow-Up [facility] at [address] [phone] Jackson Chiledrs NP 02/08/2025 11:26 AM CDT - 02/08/2025 11:59 PM CDT Hospital Encounter [address] [address] Cystitis with hematuria Discharge Disposition: Discharge to home or self care 02/08/2025 8:45 AM CDT Office Visit [facility] at [address] [phone] Radha Baca PA Cystitis with hematuria (Primary [...] (06/04/2022): Added automatically from request for surgery [id number] OAB (overactive bladder) 06/04/2022 Overview (06/04/2022): Added automatically from request for surgery [id number] 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 Overview (02/15/2020): Added automatically from request for surgery [id number] Ileostomy care 09/23/2017 History of malignant neoplasm [...] on file 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 Gender Identity Not on file Sexual [...] (5' 9 ) 12/12/2024 12:0 8 PM FORMATION FRACTURING OPERATOR Body Mass Index 26.29 12/12/2024 12:08 PM FORMATION FRACTURING OPERATOR Plan of Treatment Not on file Medical Devices Implanted Type Area Nut Steamer Device Identifier Shelf Expiration Date Model / Serial / Lot Medtronic Inc Generator Neurostimulator Bowel Bladder Recharge Free Interstim X [id number] - [id number] Implanted:Qty: 1 on 08/13/2022 by Padmini Gonzalez MD at [facility] Neurostimulator Med[employer]onic Inc 9 [id number] / / Med[employer]onic Inc Interstim 28cm Quadripolar Mri Roentgenologist Neurostimulator [id number] - Sna - [id number] Implanted:Qty: 1 on 07/30/2022 by Padmini Gonzalez MD at [facility] Other - see comments N/A: Back Medtronic Inc 12/19/2023 [id number] / NA / [id number] Description:Lower back Implant pause performed interstim Medtronic Inc Interstim 100cm Percutaneous Electrode Insulated Kit [id number] - Sna - [id number] Implanted:Qty: 1 on 07/30/2022 by Padmini Gonzalez MD at [facility] Other - see comments N/A: Back Med[employer]onic Inc 04/25/2024 [id number] / NA / [id number] Description:Lower back Implant pause performed interstim Procedures [...] current clinical standards) Comment:Testing performed by : [facility], [address] [place]., [address] Organism (CLINICALLY INSIGNIFICANT GROWTH JUSTINE CARSON Urine, clean voided 02/08/2025 11:26 AM CDT 02/08/2025 6:04 PM CDT Narrative JUSTINE CARSON - 02/09/2025 7:50 PM CDT Testing performed by [facility] Microbiology Laboratory ([phone]) us Shante Mcclure NP LAB MICROBIOLOGY - GENERAL ORDERABLES Final Result JUSTINE CARSON [id number] Department [place] [address] * (ABNORMAL) POCT urinalysis dipstick (02/08/2025 8:47 AM CDT) Color, Urine, POC Dark Yellow Clarity, ur, POC Cloudy(A) Clear Glucose, ur, POC Negative Negative MG/DL Bilirubin, ur, POC Negative Negative, Small, Moderate, Large Ketones, ur, POC Negative Negative Specific [place], POC 1.025 1.003 - 1.030 Blood, ur, POC Large(A) Negative pH, ur, POC 5.5 5.0 - 8.0 Protein, ur, POC 300.(A) Negative Urobilinogen, urine, POC 0.2 0.2 - 1.0 mg/dL Nitrite, ur, POC Negative Negative Leukocytes, ur, POC Small(A) Negative Lot Number [id number] Urine 02/08/2025 8:47 AM CDT Shante Mcclure NP POINT OF CARE TEST ORDERAB LES Final Result from Last 3 Months Insurance [employer] MEDICARE [employer] MEDICARE [employer] MEDICARE Advance Directives For more information, please contact: [phone] Documents on File Type Date Recorded Patient Defect Cutter Expl anation ADVANCE DIRECTIVE 10/02/2020 11:54 AM Marcos r of Cafeteria Manager-Medical * Full Code (Latest Code Status on File) Date Activated Date Inactivated Comments 08/13/2022 11:15 AM 08/14/2022 1:47 PM * Full Code Date Activated Date Inactivated Comments 11/11/2021 4:15 PM 11/11/2021 9:54 PM Care Teams Allergy And Immunology Chief Relationship Specialty Start Date End Date Benton Loyd MD [address] [address] PCP - General Internal Medicine 08/24/20 Justin Avery MD Surgeon Colon and Rectal Surgery 10/18/19 Deng Fagan MD [address] [facility] [address], [place] [address] Consulting Physician Urology 10/25/20 [place] [address] [place] [address] Consulting Physician Urology 11/09/22 Nathaniel Merchant MD [address] [facility] [place] [address] Consulting Physician Gastroenterology 11/09/22
--- OUTSIDE RECORDS SUMMARY | 2025-04-06 09:47 | XMS_ITS | Encounter Summary ---
Author Organization [facility] Address [address] [place] [address] Phone Care Team Providers Care Back Sewer Name Role Phone Justin Avery MD Unavailable [phone] Benton Loyd MD Primary Care Provider [phone] Deng Fagan MD Unavailable [phone] Padmini Gonzalez MD Unavailable [phone] Nathaniel Merchant MD Unavailable [phone] Encounter Details Date Type Department Care Team (Late st Contact Info) Description 10/01/2022 Telephone [facility] Department of Surgery, Section of Colon and Rectal Surgery [address] [facility] Advanced Medicine [address]th Floor, [place] [address] Sheyla Rhoades Social History Tobacco [...] on file Legal Sex Male 4:34 PM CO DIRECTOR Gender Identity Not on file Sexual Orientation Not on file documented as of this encounter Plan of Treatment Not on file documented as of this encounter Visit Diagnoses Not on filedocumented in this encounter Additional Health Concerns Infection Onset Date Last Indicated Resolved Time COVID: Suspected 12/12/2024 12/12/2024 12/12/2024 9:32 AM CO DIRECTOR documented as of this encounter Care Teams Back Sewer Relationship Specialty Start Date End Date Benton Loyd MD [address] [facility] [address], [place] [address] PCP - General Internal Medicine 08/24/20 Justin Avery MD Surgeon Colon and Rectal Surgery 10/18/19 Deng Fagan MD [address] [facility] [address], [place] [address] Consulting Physician Urology 10/25/20 [place] [address] [place] [address] Consulting Physician Urology 11/09/22 Nathaniel Merchant MD [address] [facility] [place] [place] [address] Consulting Physician Gastroenterology 11/09/22 documented as of this encounter
--- OUTSIDE RECORDS SUMMARY | 2025-04-06 09:47 | XMS_ITS | Clinical Summary ---
Author Organization [facility] Address [address] [place] [address] Care Team Providers Care Distance Learning Administrator Name Role Phone Unavailable Primary Care Provider [...]
--- OUTSIDE RECORDS SUMMARY | 2025-04-06 09:47 | XMS_ITS | Clinical Summary ---
Author Organization [facility] Address [address] [place] [address] Care Team Providers Care Pre Press Manager Name Role Phone Justin Avery MD Unavailable [phone] Benton Loyd MD Primary Care Provider [phone] Deng Fagan MD Unavailable Padmini Gonzalez MD Unavailable [phone] Nathaniel Merchant MD Unavailable Allergies Active Allergy [...] (06/04/2022): Added automatically from request for surgery [id number] OAB (overactive bladder) 06/04/2022 Overview (06/04/2022): Added automatically from request for surgery [id number] 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 Overview (02/15/2020): Added automatically from request for surgery [id number] Ileostomy care 09/23/2017 History of malignant neoplasm of rectum 08/18/20 14 Crohn's disease of rectum 12/07/2009 Encounters Date Type Department Care Team Description 02/09/2025 Results Follow-Up [facility] at [address] [phone] Jackson Childers NP 02/08/2025 11:26 AM CDT - 02/08/2025 11:59 PM CDT Hospital Encounter [address] [address] Cystitis with hematuria Discharge Disposition: Discharge to home or self care 02/08/2025 8:45 AM CDT Office Visit [facility] at [address] [phone] Radha Baca PA Cystitis with hematuria (Primary [...] 02/24/2018 Surgical History Surgery Date Site/Laterality Comments [place] REVISION PRIOR HYPOSPADIAS REPAIR DSJ&EXC RCNSTJ Surg Penis Repair Of Hypospadias Cripple - 03/11/05 (Added by TW Conv) [place] CYSTOURETHROSCOPY W/INTERNAL URETHROTOMY Cystoscopy With Internal Urethrotomy, Direct Vision - 03/30/07 (Added by TW Conv) [place] CYSTOURETHROSCOPY W/STEROID INJECTION STRICTURE Cystoscopy For Urethral Stricture With Steroid Injection - 03/30/07 (Added by TW Conv) [place] NJX RETROGRADE URETHROCSTOGRAPY Bladder Injection Procedure For Retrograde Cystourethrogram - 03/30/07 (Added by TW Conv) [place] COLECTOMY TOT ABDL W/PROCTECTOMY W/ILEOSTOMY Total Proctocolectomy - 07/21/06 (Added by TW Conv) [place] APPENDECTOMY 11/30/1964 - 11/29/1965 Appendectomy - (Added by TW Conv) [place] COLCT TOT ABDL W/O PRCTECT W/ILEOST/ILEOPXTS 11/30/2005 - 11/29/2006 Total Abdominal Colectomy With Ileostomy - (Added by TW Conv) ILEOSTOMY Ileostomy Care - (Added by TW Conv) [place] NEPHRECTOMY W/PRTL URETERECTOMY W/OPEN RIB RESCJ 11/30/2011 [...] on file Legal 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 Gender Identity Not on file Sexual [...] (5' 9 ) 12/12/2024 12:0 8 PM PERSONAL COMPUTER NETWORK ENGINEER Body Mass Index 26.29 12/12/2024 12:08 PM PERSONAL COMPUTER NETWORK ENGINEER Plan of Treatment Health Maintenance Due Date [...] history exists Medical Devices Implanted Type Area Rehabilitation Therapist Device Identifier Shelf Expiration Date Model / Serial / Lot Medtronic Inc Generator Neurostimulator Bowel Bladder Recharge Free Interstim X [id number] - [id number] Implanted:Qty: 1 on 08/13/2022 by Padmini Gonzalez MD at [facility] Neurostimulator Med[employer]onic Inc 9 7800 / / Medtronic Inc Interstim 28cm Quadripolar Mri Senior Data Architect Neurostimulator [id number] - Sna - [id number] Implanted:Qty: 1 on 07/30/2022 by Padmini Gonzalez MD at [facility] Other - see comments N/A: Back Med[employer]onic Inc 12/19/2023 [id number] / NA / [id number] Description:Lower back Implant pause performed interstim Medtronic Inc Interstim 100cm Percutaneous Electrode Insulated Kit [id number] - Sna - [id number] Implanted:Qty: 1 on 07/30/2022 by Padmini Gonzalez MD at [facility] Other - see comments N/A: Back Med[employer]onic Inc 04/25/2024 [id number] / NA / [id number] Description:Lower back Implant pause performed interstim Procedures [...] clinical standards) Comment:Testing performed by : [facility], [address] [place]., [address] Organism (CLINICALLY INSIGNIFICANT GROWTH JUSTINE Urine, clean voided 02/08/2025 11:26 AM CDT 02/08/2025 6:04 PM CDT Narrative JUSTINE CARSON - 02/09/2025 7:50 PM CDT Testing performed by [facility] Microbiology Laboratory ([phone]) Shante Mcclure NP LAB MICROBIOLOGY - GENERAL ORDERABLES Final Result JUSTINE [id number] Department [place] [address] * (ABNORMAL) POCT urinalysis dipstick (02/08/2025 8:47 AM CDT) Color, Urine, POC Dark Yellow Clarity, ur, POC Cloudy(A) Clear Glucose, ur, POC Negative Negative MG/DL Bilirubin, ur, POC Negative Negative, Small, Moderate, Large Ketones, ur, POC Negative Negative Specific [place], POC 1.025 1.003 - 1.030 Blood, ur, POC Large(A) Negative pH, ur, POC 5.5 5.0 - 8.0 Protein, ur, POC 300.(A) Negative Urobilinogen, urine, POC 0.2 0.2 - 1.0 mg/dL Nitrite, ur, POC Negative Negative Leukocytes, ur, POC Small(A) Negative Lot Number [id number] Urine 02/08/2025 8:47 AM CDT Shante Mcclure NP POINT OF CARE TEST ORDERAB LES Final Result from Last 3 Months Insurance T MEDICARE [facility] MEDICARE T MEDICARE Advance Directives For more information, please contact: [phone] Documents on File Type Date Recorded Patient Controller Coal Or Ore Expl anation ADVANCE DIRECTIVE 10/02/2020 11:54 AM Marcos r of Supervisor Sterile Processing-Medical * Full Code (Latest Code Status on File) Date Activated Date Inactivated Comments 08/13/2022 11:15 AM 08/14/2022 1:47 PM * Full Code Date Activated Date Inactivated Comments 11/11/2021 4:15 PM 11/11/2021 9:54 PM Care Teams Pre Press Manager Relationship Specialty Start Date End Date Benton Loyd MD [address] [facility] [address], [place] [address] PCP - General Internal Medicine 08/24/20 Justin Avery MD Surgeon Colon and Rectal Surgery 10/18/19 Deng Fagan MD [address] [facility] [address], [place] [address] Consulting Physician Urology 10/25/20 [place] [address] [place] [address] Consulting Physician Urology 11/09/22 Nathaniel Merchant MD [address] [facility] [place] [address] Consulting Physician Gastroenterology 11/09/22
[2025-04-06 09:53] LABS: Alanine Aminotransferase 28 U/L (6-50); Albumin Level 3.9 g/dL (3.5-5.1); Alkaline Phosphatase 66 U/L (38-126); Aspartate Amino Transferase 25 U/L (17-59); Bilirubin,Total 0.4 mg/dL (0.2-1.3); Blood Urea Nitrogen 99 mg/dL (9-20); Calcium 8.3 mg/dL (8.4-10.2); Carbon Dioxide < 5 mmol/L (22-30); Chloride 112 mmol/L (98-107); Estimated CRCL calculation 5 ml/min; Estimated Glomerular Filt Rate 5; Glucose 207 mg/dL (65-110); Potassium 6.5 mmol/L (3.4-5.0); Sodium 138 mmol/L (137-145)
[2025-04-06 10:10] LABS: Add Urine Microscopic? YES; Appearance Urine Cloudy (Clear); Bacteria Urine 3+ /hpf; Bilirubin Urine Negative (Negative); Blood Urine 3+ (Negative); Color Urine Yellow (Yellow); Glucose Urine UA Negative (Negative); Ketones Urine Negative (Negative); Leukocyte Esterase Ur 3+ LEU/UL (Negative); Nitrate Urine Negative (Negative); Non Pathogenic Casts 0-2; Protein Urine 2+ mg/dL (Negative); RBC Urine >100 /hpf (0-2); Specific Grav Ur 1.013 (1.001-1.035); Squamous Epithelial Cell Urine None Seen /hpf (Few); Urobilinogen Urine 0.2 mg/dL (<2.0); WBC Urine >100 /hpf (0-3)
[2025-04-06 10:18] LABS: Budding Yeast Urine Present /hpf; Need Manual Microscopic Reviewed
--- NOTE | 2025-04-06 10:38 | ED_ITS ---
HPI - General Adult General Chief complaint: Recheck/Abnormal Lab/Rx Stated complaint: ABN Lab Time Seen by Provider: 04/06/25 09:13 History of Present Illness HPI narrative: Patient is a 70 were old gentleman who presents emergency department with chief complaint of abnormal labs. Patient reports he has history of single kidney and reports that he has had chronic renal insufficiency. Patient states he had labs done was told that his potassium was elevated he should come to the emergency department patient reports he currently has no complaint Related Data Home Medications Medication Instructions Recorded Confirmed Last Taken Type amlodipine 10 mg tablet 10 mg PO DAILY 11/28/19 03/10/25 03/10/25 History atorvastatin 20 mg tablet 20 mg PO DAILY 11/28/19 03/10/25 03/08/25 History irbesartan 75 mg tablet 75 mg PO DAILY 11/28/19 03/10/25 03/08/25 History magnesium chloride 71.5 mg 71.5 mg PO DAILY 11/28/19 03/10/25 03/05/25 History (magnesium chloride) tablet,delayed release (Nu-Mag) omeprazole 20 mg capsule,delayed 20 mg PO DAILY 11/28/19 03/10/25 03/08/25 History release ropinirole 3 mg tablet 3 mg PO HS 11/28/19 03/10/25 03/08/25 History sitagliptin phosphate 50 mg tablet 50 mg PO DAILY 11/28/19 03/10/25 03/08/25 History (Januvia) cholecalciferol (vitamin D3) 25 25 mcg PO DAILY 02/18/25 03/10/25 03/05/25 History mcg (1,000 unit) capsule cyanocobalamin (vitamin B-12) 2,000 mcg PO DAILY 02/18/25 03/10/25 03/05/25 History 1,000 mcg capsule loperamide 2 mg capsule 4 mg PO BID 02/27/25 03/10/25 03/09/25 History (Anti-Diarrheal (loperamide)) Allergies Allergy/AdvReac Type Severity Reaction Status Date / Time No Known Allergies Allergy Verified 04/06/25 08:57 Review of Systems 2 Review of Systems: A 10 system review of systems was completed on the patient and is negative except for what is stated in the HPI. Nursing and ancillary documentation was reviewed. 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 Code status: Full code. Smoking status: Never smoker Second hand tobacco smoke exposure: No Alcohol intake: current Drinks per week: 2 Substance use: never Substance use type: does not use Do You Feel Safe in your Home?: Yes Lack of Transportation: No Lack of Food: Never True Current Housing: I Have Housing Concerned About Future Housing: No Difficulty Paying Gas/Electric Bills: No Difficulty Paying for Meds: No Currently Unemployed: No Education: Don't Know Difficulty w/ Childcare or Family Care: No Living arrangements: with family Additional living arrangements comments: Lives with spouse in [place]. 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: No Exam 2 Narrative: GENERAL: Well-appearing, well-nourished, and in no acute distress. HEAD: Normocephalic, atraumatic. EYES: PERRLA and EOMI. ENT: Nares clear, no rhinorrhea or epistaxis. Mucous membranes moist. NECK: Supple. CHEST: Clear to auscultation. No respiratory distress. HEART: Regular rate and rhythm. No murmur heard. Normal peripheral pulses. ABDOMEN: Soft, nontender, nondistended, normal active bowel sounds. EXTREMITIES: Normal range of motion. No edema. SKIN: Warm, dry, no rash. NEURO: No focal deficits. Alert and oriented x3. PSYCH: Normal mood and affect. Course Vital Signs Vital signs: Vital Signs Temperature 36.8 C 04/06/25 09:08 Pulse Rate 73 04/06/25 09:08 Respiratory Rate 16 04/06/25 09:08 Blood Pressure 149/66 H 04/06/25 09:08 Pulse Oximetry 98 04/06/25 09:08 Temperature 36.8 C 04/06/25 09:08 Pulse Rate 73 04/06/25 09:08 Respiratory Rate 16 04/06/25 09:08 Blood Pressure 149/66 H 04/06/25 09:08 Pulse Oximetry 98 04/06/25 09:08 Medical Decision Making MDM Narrative Medical decision making narrative: Differential diagnosis includes UTI, renal failure, hyperkalemia The patient was found have a potassium of 6.5 EKG showed no peaked T-waves or widened QRS Electrolytes showed creatinine of 10.98 this is acutely changed the patient's previous labs were in the 4s. The case was discussed with both Nephrology and Urology CT scan showed evidence of continual hydro on the right side with a in place stent.. Urinalysis did show greater than 100 whites and greater than 100 reds is was 3+ bacteria 3+ leukocyte esterase Vital Signs Vital Signs: Vital Signs Temperature 36.8 C 04/06/25 09:08 Pulse Rate 73 04/06/25 09:08 Respiratory Rate 16 04/06/25 09:08 Blood Pressure 149/66 H 04/06/25 09:08 Pulse Oximetry 98 04/06/25 09:08 Temperature 36.8 C 04/06/25 09:08 Pulse Rate 73 04/06/25 09:08 Respiratory Rate 16 04/06/25 09:08 Blood Pressure 149/66 H 04/06/25 09:08 Pulse Oximetry 98 04/06/25 09:08 Lab Data 04/06/25 09:31 04/06/25 09:31 Labs: Lab Results 04/06/25 04/06/25 Range/Units 09:31 09:49 WBC 4.4 L (4.5-10.0) K/mm3 RBC 2.69 L (4.6-6.20) M/mm3 Hgb 7.7 L (14.0-18.0) g/dL Hct 25.7 L (42.0-52.0) % MCV 95.5 (80-100) fl MCH 28.6 (26-34) pg MCHC 30.0 L (32-36) g/dl RDW 14.9 H (11.5-14.5) % Plt Count 204 D (150-375) k/mm3 MPV 9.9 (7.4-10.4) fl Immature Gran % (Auto) 3.2 H (0-0.5) % Neut % (Auto) 83.9 H (45.5-73.1) % Lymph % (Auto) 10.6 L (18.3-44.2) % [place] % (Auto) 2.3 L (2.6-8.5) % Eos % (Auto) 0.0 (0-4.4) % Baso % (Auto) 0.0 L (0.2-1.2) % Lymph # (Auto) 0.47 L (0.9-3.2) K/mm3 [place] # (Auto) 0.1 (0.1-0.6) K/mm3 Eos # (Auto) 0.0 (0-0.3) K/mm3 Baso # (Auto) 0.0 (0.0-0.1) K/mm3 Abs Immat Gran (auto) 0.14 H (0.00-0.031) K/mm3 Absolute Neuts (auto) 3.7 (1.3-6.7) K/mm3 Absolute Nucleated RBC 0.000 (0.0-0.012) K/mm3 Nucleated RBC % 0.0 (0.0-0.2) % Sodium 138 (137-145) mmol/L Potassium 6.5 H* (3.4-5.0) mmol/L Chloride 112 H (98-107) mmol/L Carbon Dioxide < 5 L (22-30) mmol/L Anion Gap (4-12) mmol/L BUN 99 H D (9-20) mg/dL Creatinine 10.98 H (0.7-1.3) mg/dL Estim Creat Clear Calc 5 ml/min Estimated GFR 5 L (59 - ) Glucose 207 H (65-110) mg/dL Calcium 8.3 L (8.4-10.2) mg/dL Magnesium 1.0 L (1.6-2.3) mg/dL Total Bilirubin 0.4 (0.2-1.3) mg/dL AST 25 (17-59) U/L ALT 28 (6-50) U/L Alkaline Phosphatase 66 (38-126) U/L Total Protein 8.0 (6.3-8.2) g/dL Albumin 3.9 (3.5-5.1) g/dL Urine Color Yellow (Yellow) Urine Appearance Cloudy H (Clear) Urine pH 5.0 (5.0-9.0) Ur Specific [place] 1.013 (1.001-1.035) Urine Protein 2+ H (Negative) mg/dL Urine Glucose (UA) Negative (Negative) mg/dL Urine Ketones Negative (Negative) mg/dL Ur Blood (Man) 3+ H (Negative) Urine Nitrate Negative (Negative) Urine Bilirubin Negative (Negative) Urine Urobilinogen 0.2 (<2.0) mg/dL Add Ur Microanalysis Reviewed Leukocyte Esterase Rfl 3+ H (Negative) JULISSA/UL Urine RBC >100 H (0-2) /hpf Urine WBC >100 H (0-3) /hpf Ur Squamous Epith Cells None seen (Few) /hpf Urine Bacteria 3+ H /hpf Urine Casts 0-2 Urine Yeast (Budding) Present H (None) /hpf Discharge Plan Discharge Clinical Impression: UTI (urinary tract infection), Acute renal failure, Acute hyperkalemia Patient Disposition: Still a Patient Condition: Stable Patient Language: Luxembourger Prescriptions: No Action atorvastatin 20 mg tablet 20 mg PO DAILY ropinirole 3 mg tablet 3 mg PO HS amlodipine 10 mg tablet 10 mg PO DAILY omeprazole 20 mg capsule,delayed release(DR/EC) 20 mg PO DAILY irbesartan 75 mg tablet 75 mg PO DAILY Januvia 50 mg tablet 50 mg PO DAILY Nu-Mag 71.5 mg tablet,delayed release (DR/EC) 71.5 mg PO DAILY loperamide [Anti-Diarrheal (loperamide)] 2 mg capsule 4 mg PO BID ciprofloxacin HCl [Cipro] 250 mg tablet 250 mg PO Q12H Qty: 28 0RF cholecalciferol (vitamin D3) 25 mcg (1,000 unit) capsule 25 mcg PO DAILY cyanocobalamin (vitamin B-12) 1,000 mcg capsule 2,000 mcg PO DAILY Follow-up/Referrals: UNKNOWN,DOCTOR [Primary Care Provider] - Time of Disposition: 10:43
[2025-04-06] MEDS: SODIUM BICARBONATE 8.4% 50 MEQ/50 ML SYRINGE IV PUSH ×2 (10:39→16:18)
[2025-04-06] MEDS: INSULIN HUMAN REGULAR (*BKC) 100 UNITS/ML 10 UNITS IV PUSH ×2 (10:39→16:20)
[2025-04-06] MEDS: SODIUM ZIRCONIUM CYCLOSILICATE 10 GM POWD.PACK PO (10:39)
[2025-04-06] MEDS: DEXTROSE 50% 25 GM/50 ML SYRINGE IV PUSH ×2 (10:39→16:18)
[2025-04-06] MEDS: CALCIUM GLUCONATE 1,000 MG/10 ML VIAL 1000 MG IV PUSH (10:39)
[2025-04-06] MEDS: SODIUM CHLORIDE 0.9% IV 50 ML 60 ML (10:48)
[2025-04-06] MEDS: SODIUM CHLORIDE 0.9% IV 1,000 ML 125 ML IV CONT (10:57)
[2025-04-06] MEDS: MAGNESIUM SULF 2 GM/WATER 50ML 2 GM/50 ML BAG IVPB (11:33)
[2025-04-06 11:38] LABS: Glucose Point of Care 184 mg/dl (65-105)
--- NOTE | 2025-04-06 12:45 | PM.IMHP ---
H&P: HPI History of Present Illness Date/Time: 04/06/25 12:45 Chief Complaint: Abnormal Labs Narrative: 74 y/o M with PMH of CKD, carcinoma of colorectal region (s/p radiation, total colectomy, and partial small-bowel resection), HTN, RLS, HLD, Crohn's disease, kidney stones, nephrectomy (left, 2012), 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 The patient was recently admitted twice in the last few months. The first from 02/17/2025 to 02/22/2025 for sepsis secondary to a UTI, acute on chronic kidney failure, and kidney stone with subsequent moderate hydronephrosis. He had a right ureteral stent placed on 02/19/2025. Stent was removed on 03/09/2025 at [facility]. Repeat lab work on 03/10, showed worsening renal function (tug master 3.01 -> 4.7) Arrived with fever of 102.6 ° F. patient had a right stent placed and was admitted for IV antibiotics. Urine culture and blood culture grew Enterobacter. Antibiotic was transitioned from ceftriaxone to cefepime. He had a follow up blood culture on 03/12 which was negative. He was discharged on 03/15 with a creatinine of 4.16 and a GFR of 14. Patient was directed to the ER today when follow-up lab work showed a potassium of 6.5 and worsening renal function with a creatinine of 10.98 and a GFR 5. The patient currently feels he is in his normal state of health. He denies fever, chills, body aches, dysuria, urinary frequency, abdominal pain, suprapubic pain, or hematuria. Initial VS at presentation: 98.2° F, HR 73, R 16, 149/66, and 98% on RA. ED workup: WBC 4.4, hemoglobin 7.7 (previously 8.8), K 6.5, creatinine 10.98, BUN 99, GFR 5, magnesium 1.0, and UA suggestive of UTI. CXR showed no acute cardiopulmonary pathology. CT of the abdomen/pelvis showed moderate to advanced right hydroureteronephrosis (similar to prior exam, now with ureteral stent in place), s/p total colectomy with stable infiltrative changes in the presacral/precoccygeal soft tissues, no discrete mass lesion evident, appearance similar to prior exam, probable cystitis, no significant abnormality in the chest. 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 Code status: Full code. Smoking status: Never smoker Second hand tobacco smoke exposure: No Alcohol intake: current Drinks per week: 2 Substance use: never Substance use type: does not use Do You Feel Safe in your Home?: Yes Lack of Transportation: No Lack of Food: Never True Current Housing: I Have Housing Concerned About Future Housing: No Difficulty Paying Gas/Electric Bills: No Difficulty Paying for Meds: No Currently Unemployed: No Education: Don't Know Difficulty w/ Childcare or Family Care: No Living arrangements: with family Additional living arrangements comments: Lives with spouse in [place]. 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: No Meds Home Medications and Allergies Home Medications Medication Instructions Recorded Confirmed Type amlodipine 10 mg tablet 10 mg PO DAILY 11/28/19 04/06/25 History atorvastatin 20 mg tablet 20 mg PO DAILY 11/28/19 04/06/25 History irbesartan 75 mg tablet 75 mg PO DAILY 11/28/19 04/06/25 History magnesium chloride 71.5 mg 71.5 mg PO DAILY 11/28/19 04/06/25 History (magnesium chloride) tablet,delayed release (Nu-Mag) omeprazole 20 mg capsule,delayed 20 mg PO DAILY 11/28/19 04/06/25 History release ropinirole 3 mg tablet 3 mg PO HS 11/28/19 04/06/25 History sitagliptin phosphate 50 mg tablet 50 mg PO DAILY 11/28/19 04/06/25 History (Januvia) cholecalciferol (vitamin D3) 25 25 mcg PO DAILY 02/18/25 04/06/25 History mcg (1,000 unit) capsule cyanocobalamin (vitamin B-12) 2,000 mcg PO DAILY 02/18/25 04/06/25 History 1,000 mcg capsule loperamide 2 mg capsule 4 mg PO BID 02/27/25 04/06/25 History (Anti-Diarrheal (loperamide)) methylprednisolone 4 mg tablets in 4 mg PO .COMPLEX 04/06/25 04/06/25 History a dose pack Allergies Allergy/AdvReac Type Severity Reaction Status Date / Time No Known Allergies Allergy Verified 04/06/25 08:57 Vital Signs Vital Signs - 24 hr 04/06/25 09:08 04/06/25 10:49 04/06/25 11:01 Temperature 98.2 F Pulse Rate 73 70 77 Respiratory Rate 16 14 17 Blood Pressure 149/66 H 157/71 H 156/80 H Pulse Oximetry 98 100 100 04/06/25 11:16 04/06/25 11:30 04/06/25 11:31 Temperature Pulse Rate 71 72 73 Respiratory Rate 15 14 17 Blood Pressure 138/68 126/57 L Pulse Oximetry 100 100 100 04/06/25 11:46 04/06/25 11:47 04/06/25 12:01 Temperature Pulse Rate 72 73 78 Respiratory Rate 17 16 16 Blood Pressure 126/71 137/63 Pulse Oximetry 100 99 99 Exam Const: General: comfortable and no acute distress Other: , male, elderly, nontoxic appearance HENMT: Face/Nose/Sinus: Normal nares present Mouth: Yes moist mucous membranes Eyes: General: appearance normal, both eyes and all related structures Sclera: sclerae normal Pupils: Equal, round and reactive pupils present EOM: EOMs intact bilaterally Resp: Effort & Inspection: normal respiratory effort Auscultation: clear to auscultation bilaterally Cardio: Rate: regular rate Rhythm: regular rhythm Other: S1-S2 present without murmur, rub, ectopy GI: Other: Abdomen soft, nondistended, nontender. Normoactive bowel sounds in all quadrants. Skin: General skin exam: normal color and no rashes or lesions noted Wounds: no wounds Neuro: Speech: normal speech Motor exam (neuro): 5/5 motor strength present throughout Sensory Exam: normal sensation Other: A&O x4 Extrem: General: normal to inspection Psych: Mental Status: mental status grossly normal Affect: normal affect Other: Good insight and judgment, pleasant H&P: Results Labs Labs: Short CBC 04/06/25 Range/Units 09:31 WBC 4.4 L (4.5-10.0) K/mm3 Hgb 7.7 L (14.0-18.0) g/dL Hct 25.7 L (42.0-52.0) % Plt Count 204 D (150-375) k/mm3 BMP 04/06/25 09:31 Sodium 138 Potassium 6.5 H* Chloride 112 H Carbon Dioxide < 5 L BUN 99 H D Creatinine 10.98 H Glucose 207 H Calcium 8.3 L Liver Function 04/06/25 Range/Units 09:31 Total Bilirubin 0.4 (0.2-1.3) mg/dL AST 25 (17-59) U/L ALT 28 (6-50) U/L Alkaline Phosphatase 66 (38-126) U/L Albumin 3.9 (3.5-5.1) g/dL Urine 04/06/25 Range/Units 09:49 Urine Color Yellow (Yellow) Urine Appearance Cloudy H (Clear) Urine pH 5.0 (5.0-9.0) Ur Specific [place] 1.013 (1.001-1.035) Urine Protein 2+ H (Negative) mg/dL Urine Glucose (UA) Negative (Negative) mg/dL Assessment and Plan Assessment and plan (1) Acute on chronic kidney failure: Qualifiers: Acute renal failure type: unspecified Chronic kidney disease stage: unspecified stage Qualified Code(s): N17.9 - Acute kidney failure, unspecified; N18.9 - Chronic kidney disease, unspecified Code(s): N17.9 - Acute kidney failure, unspecified; N18.9 - Chronic kidney disease, unspecified Status: Acute Assessment and Plan: 03/09: Right ureteral stent removed. Renal function - 3.01, BUN 47, GFR 20. 03/10: Renal function - 4.7, BUN 54, GFR 12. Right stent placed. UC and BC grew Enterobacter. 03/12: Repeat BC negative. 03/15: D/c'd with renal function of - 4.16, BUN 48, GFR 14. 04/06: Renal function -10.98, BUN 99, GFR 5. Patient admitted recently from 03/10 to 03/15. UTI treated with Ceftriaxone -> Cefepime -> Cipro p.o. Returning today with worsening renal function (acute on chronic) and hyperkalemia. Hyperkalemia and mild hypomagnesium presumed secondary to worsening renal function. Recheck this evening post-corrective medications. Nephrology and Urology consulted. Prior urology evaluation showed vesico-ureteral reflux and narrowing right mid-distal ureter. Urology recommended a long-term indwelling ureteral stent with periodic changes, however has been previously discussed with the patient several times. This in combination with the patient having a solitary kidney and frequent UTIs are likely contributing to patient's worsening renal function. (2) Acute hyperkalemia: Code(s): E87.5 - Hyperkalemia Status: Resolved Assessment and Plan: - K 6.5 - initial treatment with bicarb, Lokelma, calcium, insulin/dextrose and IV fluids. Repeat this evening. - monitor. (3) UTI (urinary tract infection): Qualifiers: Hematuria presence: without hematuria Urinary tract infection type: acute cystitis Qualified Code(s): N30.00 - Acute cystitis without hematuria Code(s): N39.0 - Urinary tract infection, site not specified Status: Acute Assessment and Plan: - UA: Cloudy, 2+ protein, 3+ blood, 3+ leuks, greater than 100 RBC and WBC, 3+ bacteria, no epithelial cells, yeast present. - UC pending, follow - previous micro reviewed: Enterobacter on 03/10 with resistance to Augementin, Ancef, and Zosyn. Intermediate to ceftazidime. - started on cefepime on 04/06 - antipyretics p.r.n., IV fluids (4) Anemia: Qualifiers: Anemia type: due to chronic kidney disease Chronic kidney disease stage: unspecified stage Qualified Code(s): N18.9 - Chronic kidney disease, unspecified; D63.1 - Anemia in chronic kidney disease Code(s): D64.9 - Anemia, unspecified Status: Chronic Assessment and Plan: - Hgb 7.7, previously 8.8 on 03/14. Slightly decreased compared to baseline. - history of anemia, presumed secondary to chronic kidney disease/worsening renal function. - transfuse if <7 - trend H&H (5) Hypertension: Qualifiers: Hypertension type: primary hypertension Qualified Code(s): I10 - Essential (primary) hypertension Code(s): I10 - Essential (primary) hypertension Status: Chronic Assessment and Plan: - chronic, currently 152/63 - continue home medications: Amlodipine, irbesartan - monitor (6) Prediabetes: Code(s): R73.03 - Prediabetes Status: Acute Assessment and Plan: - A1c 6.3% on 02/18/2025 - controlled with diet and Januvia. Continue Januvia. - hypoglycemia protocol ordered Plan Diet: NPO GI Prophylaxis: Not currently indicated DVT Prophylaxis: SCDs IV fluids: NS at 125 mL/hour Lines/Tubes: Peripheral IV, Uriarte? Code Status: Full code Quality VTE Prophylaxis VTE prophylaxis: mechanical ordered Hospitalist MIPS Advance Care Plan I have confirmed that the patient's Advanced Care Plan is present, code status is documented, or surrogate decision maker is listed in patient medical record.: Yes Medication Reconciliation I have utilized all available resources to obtain, update and review the patients current medications (includes all prescriptions, OTC, herbals, cannabis, and nutritional supplements).: Yes
--- NOTE | 2025-04-06 13:02 | ADMGEN ---
This patient, Ganesh Vásquez, was admitted to [facility] Surg Room 305-01. Patient/family oriented to hospital policies and general routines including ID bracelet, bed and alarms, visiting hours, pain management, procedures, bathroom and other care routines, personal items, smoking policy, room service/diet, and visiting hours. Information on how to activate the Rapid Response Team has been discussed. Patient/Family are encouraged to report perceived risks to care and to ask questions if they do not understand what they are told or what they should do.
--- NOTE | 2025-04-06 13:06 | P.CONUR_ITS ---
Assessment and Plan Assessment and plan (1) Hydroureteronephrosis: Code(s): N13.30 - Unspecified hydronephrosis Status: Acute (2) Acute renal failure: Code(s): N17.9 - Acute kidney failure, unspecified Status: Acute (3) UTI (urinary tract infection): Qualifiers: Hematuria presence: without hematuria Urinary tract infection type: a cute cystitis Qualified Code(s): N30.00 - Acute cystitis without hematuria Code(s): N39.0 - Urinary tract infection, site not specified Status: Acute Plan -WBC 5.7 -Creatinine 10.98. Nephrology has been consulted. -UA: Cloudy, 2+ protein, 3+ blood, 3+ leuks, greater than 100 RBC and WBC, 3+ bacteria, no epithelial cells, yeast present. Culture pending. Antibiotics per primary team. -no plans/need for urologic surgical intervention at this time. CT of the abdomen and pelvis from today is still demonstrating moderate to advanced right hydroureteronephrosis similar to prior exam. Ureteral stent in place. Urology Consult Note HPI Date Seen: 04/06/25 Requesting Physician: Beto Bonner MD Primary Care Provider: UNKNOWN,DOCTOR Consult Narrative Narrative: Ganesh Vásquez is a 74 year old male who presents to emergency department with chief complaint of abnormal labs. Patient reports he has history of single kidney and reports that he has had chronic renal insufficiency. Patient states he had labs done was told that his potassium was elevated he should come to the emergency department patient reports he currently has no complaint. 01/2025: Complicated history: Consult with [facility]. [facility] at [facility] - Hypospadias: multiple procedures in childhood - Solitary right kidney: left nephrectomy at [facility] in remote past d/t recurrent urolithiasis - CKD with baseline creat. in 3's: followed by Nephrology at [facility] Consult for right hydronephrosis and worsening renal function - Right stent placement 02/[address] Vincent: creat. improved from 4.9 -> 3.9 - Patulous ureteral orifice noted at stent placement 03/09/25: OR evaluation: - Cystogram: - low-pressure right VU reflux at low volume (150cc) - 2cm narrowing distal right ureter just below right iliac v. - prompt/complete drainage collectins system/ureter across right ureteral narrowing - Right RPG and ureteroscopy: no pathology in collecting system or ureter I yudith immediate pre-op BPM and opted to leave stent out. 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 post neoadjuvant chemo radiation, total colectomy, and partial small- bowel resection Hypertension Restless leg syndrome Hyperlipidemia Crohn's disease Surgical History Surgical History History of ileostomy History of total colectomy (2005) and partial small-bowel resection with ileostomy for signet cell carcinoma History of left nephrectomy for poorly functioning kidney and what sounds like matrix stone formation Family History Family History Other Diabetes mellitus Heart disease Hypertension Social History Social History Social History: Surrogate medical decision maker: Corine Vásquez, spouse. Code status: Full code. Smoking status: Never smoker Second hand tobacco smoke exposure: No Alcohol intake: current Drinks per week: 2 Substance use: never Substance use type: does not use Do You Feel Safe in your Home?: Yes Lack of Transportation: No Lack of Food: Never True Current Housing: I Have Housing Concerned About Future Housing: No Difficulty Paying Gas/Electric Bills: No Difficulty Paying for Meds: No Currently Unemployed: No Education: Don't Know Difficulty w/ Childcare or Family Care: No Living arrangements: with family Additional living arrangements comments: Lives with spouse in [place]. 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: No Meds Home Medications and Allergies Home Medications Medication Instructions Recorded Confirmed Type amlodipine 10 mg tablet 10 mg PO DAILY 11/28/19 04/06/25 History atorvastatin 20 mg tablet 20 mg PO DAILY 11/28/19 04/06/25 History irbesartan 75 mg tablet 75 mg PO DAILY 11/28/19 04/06/25 History magnesium chloride 71.5 mg 71.5 mg PO DAILY 11/28/19 04/06/25 History (magnesium chloride) tablet,delayed release (Nu-Mag) omeprazole 20 mg capsule,delayed 20 mg PO DAILY 11/28/19 04/06/25 History release ropinirole 3 mg tablet 3 mg PO HS 11/28/19 04/06/25 History sitagliptin phosphate 50 mg tablet 50 mg PO DAILY 11/28/19 04/06/25 History (Januvia) cholecalciferol (vitamin D3) 25 25 mcg PO DAILY 02/18/25 04/06/25 History mcg (1,000 unit) capsule cyanocobalamin (vitamin B-12) 2,000 mcg PO DAILY 02/18/25 04/06/25 History 1,000 mcg capsule loperamide 2 mg capsule 4 mg PO BID 02/27/25 04/06/25 History (Anti-Diarrheal (loperamide)) methylprednisolone 4 mg tablets in 4 mg PO .COMPLEX 04/06/25 04/06/25 History a dose pack Allergies Allergy/AdvReac Type Severity Reaction Status Date / Time No Known Allergies Allergy Verified 04/06/25 08:57 Vital Signs Vital Signs - 24 hr 04/06/25 09:08 04/06/25 10:49 04/06/25 11:01 Temperature 98.2 F Pulse Rate 73 70 77 Respiratory Rate 16 14 17 Blood Pressure 149/66 H 157/71 H 156/80 H Pulse Oximetry 98 100 100 04/06/25 11:16 04/06/25 11:30 04/06/25 11:31 Temperature Pulse Rate 71 72 73 Respiratory Rate 15 14 17 Blood Pressure 138/68 126/57 L Pulse Oximetry 100 100 100 04/06/25 11:46 04/06/25 11:47 04/06/25 12:01 Temperature Pulse Rate 72 73 78 Respiratory Rate 17 16 16 Blood Pressure 126/71 137/63 Pulse Oximetry 100 99 99 04/06/25 12:35 Temperature 97.3 F L Pulse Rate 68 Respiratory Rate 16 Blood Pressure 152/63 H Pulse Oximetry 100 Exam 2 Const: General: comfortable and no acute distress HENMT: Mouth: Yes moist mucous membranes abnormal Eyes: General: appearance normal, both eyes and all related structures Resp: Effort & Inspection: normal respiratory effort Psych: Speech and movement: Normal speech and movement present Results Labs 04/06/25 14:53 04/06/25 20:27 Labs: Short CBC 04/06/25 Range/Units 09:31 WBC 4.4 L (4.5-10.0) K/mm3 Hgb 7.7 L (14.0-18.0) g/dL Hct 25.7 L (42.0-52.0) % Plt Count 204 D (150-375) k/mm3 BMP 04/06/25 09:31 Sodium 138 Potassium 6.5 H* Chloride 112 H Carbon Dioxide < 5 L BUN 99 H D Creatinine 10.98 H Glucose 207 H Calcium 8.3 L Liver Function 04/06/25 Range/Units 09:31 Total Bilirubin 0.4 (0.2-1.3) mg/dL AST 25 (17-59) U/L ALT 28 (6-50) U/L Alkaline Phosphatase 66 (38-126) U/L Albumin 3.9 (3.5-5.1) g/dL Urine 04/06/25 Range/Units 09:49 Urine Color Yellow (Yellow) Urine Appearance Cloudy H (Clear) Urine pH 5.0 (5.0-9.0) Ur Specific [place] 1.013 (1.001-1.035) Urine Protein 2+ H (Negative) mg/dL Urine Glucose (UA) Negative (Negative) mg/dL
[2025-04-06] MEDS: SITagliptin PHOSPHATE 50 MG TABLET PO (14:03)
[2025-04-06] MEDS: MAGNESIUM CHLORIDE 64 MG TABLET 71.5 MG PO (14:03)
[2025-04-06] MEDS: IRBESARTAN 75 MG TABLET PO (14:03)
[2025-04-06] MEDS: CYANOCOBALAMIN 1,000 MCG TABLET 2000 MCG PO (14:04)
[2025-04-06] MEDS: CHOLECALCIFEROL 1,000 UNITS TABLET 1000 UNITS PO (14:04)
[2025-04-06] MEDS: CEFEPIME 1 GM/NS 50 ML 1 GM/50 ML BAG IVPB (14:05)
[2025-04-06] MEDS: ATORVASTATIN 20 MG TABLET PO (14:05)
[2025-04-06] MEDS: PANTOPRAZOLE 40 MG TABLET PO (14:05)
--- NOTE | 2025-04-06 14:05 | P.CONNP_ITS ---
Assessment and Plan Assessment and plan (1) Acute kidney injury: Code(s): N17.9 - Acute kidney failure, unspecified Status: Acute Assessment and Plan: * slow improvement noted * as noted by admission creatinine * records reviewed/noted: * creatinine did improve to 3.0mg/dl (on 03/09/25) * however, did worsen/rise given recent bacteremia/infection on February 2025 admission - discharge creatinine was 4.16mg/dl * creatinine on this admission - 10.98mg/dl * evaluation to date noted: * CT of A/P showed hydronephrosis (but ureteral stent in good position) * UA suggestive of infection * urine studies and CPK ordered * etiology not entirely clear... * element of volume depletion (?) * infection (possible UTI? -- had bacteremia on last hospitalization but this was appropriately treated...) * continued use of irbesartan therapy * other(?) * follow trend of repeat labs and UOP (2) Chronic kidney disease, stage IV (severe): Code(s): N18.4 - Chronic kidney disease, stage 4 (severe) Status: Acute Assessment and Plan: * last creatinine was 2.35mg/dl in December 2024 * this places him around CKD stage 3b/stage 4 * likely a result of his nephrectomy, hypertension, vascular disease and age- related change * given recent hospitalization for obstruction and infection/bacteremia -- he may have a new baseline... * follows with Dr. Olvin Dixon at [facility] for management of his CKD (3) Hyperkalemia: Code(s): E87.5 - Hyperkalemia Status: Acute Assessment and Plan: * due to MERI and possibly ARB use * s/p medical management * continue lokelma for now * follow trend of K+ level (4) Metabolic acidosis: Code(s): E87.20 - Acidosis, unspecified Status: Acute Assessment and Plan: * due to MERI * will start bicarb fluids (1/2NS + 75MEQ sodium bicarbonate) * this should help improve K+ as well * will also add oral bicarbonate as well * follow CO2 levels (5) UTI (urinary tract infection): Qualifiers: Hematuria presence: without hematuria Urinary tract infection type: a cute cystitis Qualified Code(s): N30.00 - Acute cystitis without hematuria Code(s): N39.0 - Urinary tract infection, site not specified Status: Acute Assessment and Plan: * admission UA highly suggestive: * cloudy, 2+ protein, 3+ blood, 3+ leuks, greater than 100 RBC and WBC, 3+ bacteria, no epithelial cells, yeast present. * follow urine culture results * on antibiotics (6) Hydroureteronephrosis: Code(s): N13.30 - Unspecified hydronephrosis Status: Acute Assessment and Plan: * as noted by recent imaging studies * s/p cystoscopy, right retrograde pyelogram, right ureteral stent insertion (on 02/20) * right ureteral stent removal (on 03/09) * right ureteral stent replacement (on 03/10) as renal function acutely worsened after stent removal * Urology following (7) Anemia: Qualifiers: Anemia type: due to chronic kidney disease Chronic kidney disease stage: unspecified stage Qualified Code(s): N18.9 - Chronic kidney disease, unspecified; D63.1 - Anemia in chronic kidney disease Code(s): D64.9 - Anemia, unspecified Status: Chronic Assessment and Plan: * related to underlying CKD likely worsened by MERI * check anemia studies * PRBC transfusion per protocol * Epogen while hospitalized * follow trend of H/H (8) Hypertension: Qualifiers: Hypertension type: primary hypertension Qualified Code(s): I10 - Essential (primary) hypertension Code(s): I10 - Essential (primary) hypertension Status: Chronic Assessment and Plan: * reasonable control at this time * holding ARB * follow trend of hemodynamics Long extensive discussion (greater than 20 minutes) with the patient regarding his severe decline in renal function in association with his elevated potassium, worsening acidosis, along with azotemia and my concern that if these laboratory parameters do not improve with ongoing conservative medical therapy, he may require renal replace min therapy/dialysis. The patient appeared to voice understanding and although the severity of his renal dysfunction is quite apparent, he otherwise appears to be be asymptomatic which is a favorable prognostic sign. Hopefully, with continued conservative therapy that has already been instituted, his renal function will improve although I am unclear if it will return to its previous baseline as noted in December of 2024 given the severity and multitude of insults to his kidneys in the last few months. I will continue to follow the patient with you while he remains hospitalized and make further recommendations as deemed necessary. Thank you for allowing me to participate in the care of this patient. L History of Present Illness Reason for Consult Consult date: 04/06/25 Reason for consult: acute renal failure (on chronic kidney disease) Chief Complaint Chief complaint: Hyperkalemia/Acute on Chronic Renal Failure History of Present Illness Narrative: The patient is a 74-year-old male with a past medical history as outlined below who presented to [facility] Emergency Room due to abnormal labs. The patient apparently had outpatient labs done which demonstrated evidence of hyperkalemia although the specifics are not entirely clear. However, due to this abnormal finding, he was instructed to come to the emergency room for further assessment. Despite these laboratory abnormality, the patient's self had no specific issues or complaints voiced. The patient has been admitted twice in the last few months at [facility]. He was 1st hospitalized in late January of this year for acute kidney injury on top of his baseline chronic renal insufficiency secondary to nephrolithiasis, urinary tract infection, and moderate hydronephrosis in his solitary/right kidney. He was treated with antibiotics as well as ureteral stent placement with improvement in his renal function by the time of discharge. He was subsequently readmitted in early February of this year after an outpatient procedure with regard to removal of the right ureteral stent. Postprocedure, he developed a fever and worsening renal function which necessitated replacement of the right ureteral stent as well as IV antibiotic therapy as well. That hospitalization was complicated by Enterobacter bacteremia and urinary tract infection. His antibiotics were adjusted and repeat blood cultures demonstrated no growth and he was subsequently discharged on oral antibiotic therapy with a slowly improving creatinine as well which was down to 4.16 mg/dL. He had repeat blood work done following this hospitalization which apparently demonstrated evidence of hyperkalemia which prompted his referral to the ER today. As already mentioned, the patient was without any acute complaints and feels reasonably well. He denies any symptoms of fevers, chills, fatigue, malaise, body aches, dysuria, urinary frequency, abdominal pain, hematuria, dysuria, nausea, vomiting, diarrhea, or any other symptoms. It should be noted that he does have a Uriarte catheter in place. Workup and evaluation emergency room demonstrated the patient to be afebrile and hemodynamically stable. Routine blood work demonstrated CBC with white cell count of 4.4, hemoglobin 7.7, potassium 6.5, creatinine 10.98, BUN 99, magnesium 1.0, and a urinalysis that was highly suggestive of another urinary tract infection. His chest x-ray was negative for any acute pathology and a subsequent CT scan of the abdomen pelvis demonstrated moderate to advanced right hydroureteronephrosis with the ureteral stent in the appropriate position with findings consistent with his total colectomy and no other acute intra-abdominal pathology other than probable cystitis. Given these findings, he was initiated on IV fluids as well as IV antibiotics after appropriate cultures were obtained and received medical management for his elevated potassium level. He was subsequently admitted to the hospital for further evaluation and therapy. Renal consultation was requested due to his acute kidney injury/acute renal failure on top of his baseline chronic kidney disease. The patient is somewhat familiar to me as I was involved in his care during his January 2025 hospitalization. The patient has known chronic kidney disease secondary to his solitary kidney/left nephrectomy in conjunction with hypertension, nephrolithiasis, borderline diabetes, and age-related change. His baseline creatinine was around 2.35 mg/dL in December of this year with recent fluctuations in his renal function/creatinine over last couple of months secondary to his acute hospitalizations for sepsis, bacteremia/UTI eyes, obstructive uropathy/hydronephrosis, and deconditioning. His creatinine did improve to as low as 3.0 mg/dL but on his last hospitalization February, it did acutely worsened but that was in the setting of infection/sepsis but also was trending down/improving down to 4.16 mg/dL by the time of discharge. Unfortunately, as evidence by his admission labs, he had a marked decline in his kidney function with his creatinine up to 10.98 mg/dL in association with metabolic acidosis and significant hyperkalemia although the exact etiology of this is not entirely clear as imaging studies does show the evidence hydronephrosis but the ureteral stent appears to be in position. More importantly, the patient appears asymptomatic with regard to these significant laboratory abnormalities as well. Currently, at the time my evaluation, he appears to be in no acute distress. Review of Systems 2 Review of Systems: As per HPI. 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 Code status: Full code. Smoking status: Never smoker Second hand tobacco smoke exposure: No Alcohol intake: current Drinks per week: 2 Substance use: never Substance use type: does not use Do You Feel Safe in your Home?: Yes Lack of Transportation: No Lack of Food: Never True Current Housing: I Have Housing Concerned About Future Housing: No Difficulty Paying Gas/Electric Bills: No Difficulty Paying for Meds: No Currently Unemployed: No Education: Don't Know Difficulty w/ Childcare or Family Care: No Living arrangements: with family Additional living arrangements comments: Lives with spouse in [place]. 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: No Meds Home Medications and Allergies Home Medications Medication Instructions Recorded Confirmed Type amlodipine 10 mg tablet 10 mg PO DAILY 11/28/19 04/06/25 History atorvastatin 20 mg tablet 20 mg PO DAILY 11/28/19 04/06/25 History irbesartan 75 mg tablet 75 mg PO DAILY 11/28/19 04/06/25 History magnesium chloride 71.5 mg 71.5 mg PO DAILY 11/28/19 04/06/25 History (magnesium chloride) tablet,delayed release (Nu-Mag) omeprazole 20 mg capsule,delayed 20 mg PO DAILY 11/28/19 04/06/25 History release ropinirole 3 mg tablet 3 mg PO HS 11/28/19 04/06/25 History sitagliptin phosphate 50 mg tablet 50 mg PO DAILY 11/28/19 04/06/25 History (Januvia) cholecalciferol (vitamin D3) 25 25 mcg PO DAILY 02/18/25 04/06/25 History mcg (1,000 unit) capsule cyanocobalamin (vitamin B-12) 2,000 mcg PO DAILY 02/18/25 04/06/25 History 1,000 mcg capsule loperamide 2 mg capsule 4 mg PO BID 02/27/25 04/06/25 History (Anti-Diarrheal (loperamide)) methylprednisolone 4 mg tablets in 4 mg PO .COMPLEX 04/06/25 04/06/25 History a dose pack Allergies Allergy/AdvReac Type Severity Reaction Status Date / Time No Known Allergies Allergy Verified 04/06/25 08:57 Vital Signs Vital Signs Temp Pulse Resp BP Pulse Ox 04/06/25 12:35 97.3 F L 68 16 152/63 H 100 04/06/25 12:01 78 16 137/63 99 04/06/25 11:47 73 16 99 04/06/25 11:46 72 17 126/71 100 04/06/25 11:31 73 17 126/57 L 100 04/06/25 11:30 72 14 100 04/06/25 11:16 71 15 138/68 100 04/06/25 11:01 77 17 156/80 H 100 04/06/25 10:49 70 14 157/71 H 100 04/06/25 09:08 98.2 F 73 16 149/66 H 98 Exam 2 Narrative: GENERAL APPEARANCE: elderly but well developed well nourished male in no acute distress HEENT: normocephalic, atraumatic, normal conjunctiva and sclera, nares patient NECK: no lymphadenopathy, thyromegaly, or JVD MOUTH: normal lips, teeth, and gums CARDIOVASCULAR: RRR, normal S1 and S2, no rub RESPIRATORY: clear anteriorly ABDOMEN: soft, nontender, nondistended, positive bowel sounds present EXTREMITIES: no evidence of cyanosis, clubbing, or edema NEUROLOGICAL: alert and oriented x 3; CN II - XII intact bilaterally; no focal deficits noted Results Lab Results 04/11/25 05:09 04/11/25 05:09 Lab results: Most recent lab results Calcium 8.3 mg/dL (8.4-10.2) L 04/06/25 14:53 Magnesium 1.0 mg/dL (1.6-2.3) L 04/06/25 09:31
[2025-04-06 15:07] LABS: Alanine Aminotransferase 25 U/L (6-50); Albumin Level 3.7 g/dL (3.5-5.1); Alkaline Phosphatase 63 U/L (38-126); Anion Gap 19 mmol/L (4-12); Aspartate Amino Transferase 19 U/L (17-59); Bilirubin,Total 0.4 mg/dL (0.2-1.3); Blood Urea Nitrogen 95 mg/dL (9-20); Calcium 8.3 mg/dL (8.4-10.2); Carbon Dioxide 7 mmol/L (22-30); Chloride 114 mmol/L (98-107); Estimated CRCL calculation 5 ml/min; Estimated Glomerular Filt Rate 5; Glucose 126 mg/dL (65-110); Potassium 5.7 mmol/L (3.4-5.0); Sodium 140 mmol/L (137-145)
[2025-04-06 15:08] LABS: Basophils Percent Auto 0.2 % (0.2-1.2); Hematocrit 24.1 % (42.0-52.0); Hemoglobin 7.5 g/dL (14.0-18.0); Immature Granulocyte Absolute 0.12 K/mm3 (0.00-0.031); Immature Granulocyte Percent A 2.1 % (0-0.5); Lymphocytes Absolute Auto 0.78 K/mm3 (0.9-3.2); Lymphocytes Percent Auto 13.8 % (18.3-44.2); Mean Corpuscular HGB Conc 31.1 g/dl (32-36); Mean Corpuscular Hemoglobin 28.8 pg (26-34); Mean Corpuscular Volume 92.7 fl (80-100); Mean Platelet Volume 9.8 fl (7.4-10.4); Monocytes Absolute Auto 0.2 K/mm3 (0.1-0.6); Monocytes Percent Auto 4.1 % (2.6-8.5); Neutrophils Absolute Auto 4.5 K/mm3 (1.3-6.7); Neutrophils Percent Auto 79.8 % (45.5-73.1); Platelet Count Result 196 k/mm3 (150-375); Red Cell Distribution Width 14.8 % (11.5-14.5); White Blood Count 5.7 K/mm3 (4.5-10.0)
[2025-04-06] MEDS: methylPREDNISolone (MEDROL) DOSEPACK 4 MG TABLETS PO ×3 (15:27→20:27)
[2025-04-06] MEDS: CALCIUM GLUC 1,000 MG/NS 50 ML 1,000 MG/50 ML BAG 100 MG IVPB (16:17)
[2025-04-06 16:29] LABS: Glucose Point of Care 305 mg/dl (65-105)
[2025-04-06] MEDS: LOPERAMIDE HCL 2 MG CAPSULE 4 MG PO (17:24)
[2025-04-06 19:04] LABS: Glucose Point of Care 210 mg/dl (65-105)
[2025-04-06] MEDS: SODIUM BICARBONATE 8.4% 75 MEQ in SODIUM CHLORIDE 0.45% 1,000 ML IV CONT (20:24)
[2025-04-06] MEDS: rOPINIRole HCL 1 MG TABLET 3 MG PO (20:25)
[2025-04-06 21:07] LABS: Anion Gap 18 mmol/L (4-12); Blood Urea Nitrogen 92 mg/dL (9-20); Calcium 8.1 mg/dL (8.4-10.2); Carbon Dioxide 9 mmol/L (22-30); Chloride 113 mmol/L (98-107); Estimated CRCL calculation 6 ml/min; Estimated Glomerular Filt Rate 5; Glucose 222 mg/dL (65-110); Potassium 5.3 mmol/L (3.4-5.0); Sodium 140 mmol/L (137-145)
[2025-04-07] VITALS (10 sets, daily range): BP systolic 134–147; BP diastolic 69–74; PULSE 59–72; RESP 16–18; TEMP 36.4–36.7; O2SAT 95–100
[2025-04-07 05:19] LABS: Hematocrit 24.3 % (42.0-52.0); Hemoglobin 7.5 g/dL (14.0-18.0); Immature Granulocyte Absolute 0.05 K/mm3 (0.00-0.031); Lymphocytes Absolute Auto 0.46 K/mm3 (0.9-3.2); Lymphocytes Percent Auto 9.3 % (18.3-44.2); Mean Corpuscular HGB Conc 30.9 g/dl (32-36); Mean Corpuscular Hemoglobin 28.7 pg (26-34); Mean Corpuscular Volume 93.1 fl (80-100); Mean Platelet Volume 10.1 fl (7.4-10.4); Monocytes Absolute Auto 0.1 K/mm3 (0.1-0.6); Monocytes Percent Auto 1.4 % (2.6-8.5); Neutrophils Absolute Auto 4.3 K/mm3 (1.3-6.7); Neutrophils Percent Auto 88.3 % (45.5-73.1); Platelet Count Result 207 k/mm3 (150-375); Red Blood Count 2.61 M/mm3 (4.6-6.20); Red Cell Distribution Width 14.6 % (11.5-14.5); White Blood Count 4.9 K/mm3 (4.5-10.0)
[2025-04-07] MEDS: methylPREDNISolone (MEDROL) DOSEPACK 4 MG TABLETS PO ×4 (05:33→20:14)
[2025-04-07 05:35] LABS: Alanine Aminotransferase 31 U/L (6-50); Albumin Level 3.6 g/dL (3.5-5.1); Alkaline Phosphatase 59 U/L (38-126); Anion Gap 19 mmol/L (4-12); Aspartate Amino Transferase 25 U/L (17-59); Bilirubin,Total 0.4 mg/dL (0.2-1.3); Blood Urea Nitrogen 95 mg/dL (9-20); Calcium 7.9 mg/dL (8.4-10.2); Carbon Dioxide 10 mmol/L (22-30); Chloride 112 mmol/L (98-107); Creatine Kinase 32 U/L (55-170); Estimated CRCL calculation 6 ml/min; Estimated Glomerular Filt Rate 6; Glucose 171 mg/dL (65-110); Magnesium 1.4 mg/dL (1.6-2.3); Potassium 5.6 mmol/L (3.4-5.0); Sodium 141 mmol/L (137-145)
[2025-04-07 05:37] LABS: Iron 122 ug/dL (49-181)
[2025-04-07 05:43] LABS: Creatinine Urine 54.5 mg/dL; Total Protein Urine Random 104 mg/dL; Urea Random Urine 397 MG/DL
[2025-04-07 05:45] LABS: Sodium Urine Random 66 meq/L
[2025-04-07 05:46] LABS: Percent Iron Saturation 55 % (20-50)
[2025-04-07 05:49] LABS: Creatinine Urine 54.5 mg/dL; Total Protein Urine Random 104 mg/dL; Ur Ttl Prot Creatinine Ratio 1.91 mg/mg (0-0.20)
[2025-04-07 06:35] LABS: Folic Acid 6.1 ng/mL (2.76->20)
[2025-04-07 06:53] LABS: Hepatitis B Surface Antigen Negative (Negative)
--- NOTE | 2025-04-07 07:03 | P.PNUR_ITS ---
Progress Note: A&P Assessment and Plan (1) Acute renal failure: Code(s): N17.9 - Acute kidney failure, unspecified Status: Acute (2) Hydroureteronephrosis: Code(s): N13.30 - Unspecified hydronephrosis Status: Acute Assessment and Plan: * Renal function slowly improving. I'm unclear as to the inciting event that may have caused significant deterioration the past couple weeks. * His right ureteral stent appears to be in position and functioning appropriately. No plan/indication for intervention from our standpoint suppo rtive care is being provided by nephrology. Subjective Subjective Date/Time Seen: 04/07/25 07:03 Interval history: Comfortable, slept well Review of Systems Cardiovascular: Cardiovascular: Denies chest pain, Denies lightheadedness, Denies palpitations and Denies dyspnea Respiratory: Respiratory: Denies dyspnea Gastrointestinal: Gastrointestinal: Denies diarrhea, Denies nausea and Denies vomiting Genitourinary: Genitourinary: Denies hematuria and Denies dysuria Endocrine: Endocrine: Denies palpitations Exam Const: General: no acute distress Resp: Effort & Inspection: normal respiratory effort GI: Inspection: non-distended GI Palp: No abdominal tenderness and No Guarding due to palpation present (GI) Auscultation: normal bowel sounds Objective Data Vital Signs Vital Signs: Vital Signs - 24 hr 04/06/25 09:08 04/06/25 10:49 04/06/25 11:01 Temperature 98.2 F Pulse Rate 73 70 77 Respiratory Rate 16 14 17 Blood Pressure 149/66 H 157/71 H 156/80 H Pulse Oximetry 98 100 100 Oxygen Delivery 04/06/25 11:16 04/06/25 11:30 04/06/25 11:31 Temperature Pulse Rate 71 72 73 Respiratory Rate 15 14 17 Blood Pressure 138/68 126/57 L Pulse Oximetry 100 100 100 Oxygen Delivery 04/06/25 11:46 04/06/25 11:47 04/06/25 12:01 Temperature Pulse Rate 72 73 78 Respiratory Rate 17 16 16 Blood Pressure 126/71 137/63 Pulse Oximetry 100 99 99 Oxygen Delivery 04/06/25 12:35 04/06/25 20:00 04/06/25 20:20 Temperature 97.3 F L Pulse Rate 68 71 Respiratory Rate 16 Blood Pressure 152/63 H Pulse Oximetry 100 Oxygen Delivery Room Air 04/06/25 20:42 04/07/25 00:00 04/07/25 04:00 Temperature 97.8 F Pulse Rate 70 59 L 61 Respiratory Rate 16 Blood Pressure 147/69 H Pulse Oximetry 100 Oxygen Delivery 04/07/25 05:42 Temperature 97.6 F Pulse Rate 62 Respiratory Rate 16 Blood Pressure 147/74 H Pulse Oximetry 99 Oxygen Delivery Intake/Output Intake/Output: Intake & Output 04/04/25 04/05/25 04/06/25 04/07/25 23:59 23:59 23:59 23:59 Intake Total 698 Output Total 2150 550 Balance -1452 -550 Meds/Results Medications: Active Medications Generic Name Dose Route Start Last Admin Trade Name Freq PRN Reason Stop Dose Admin Acetaminophen 650 mg 04/06/25 10:38 Acetaminophen 325 Mg Tablet PO Q4H PRN Mild Pain (1-3) or Fever Amlodipine Besylate 10 mg 04/07/25 09:00 Amlodipine Besylate 10 Mg Tablet PO DAILY KIRSTEN Atorvastatin Calcium 20 mg 04/06/25 13:35 04/06/25 14:05 Atorvastatin 20 Mg Tablet PO 20 mg DAILY KIRSTEN Administration Cyanocobalamin 2,000 mcg 04/06/25 13:35 04/06/25 14:04 Cyanocobalamin 1,000 Mcg Tablet PO 2,000 mcg DAILY KIRSTEN Administration Dextrose 12.5 gm 04/06/25 13:14 Dextrose 50% 25 Gm/50 Ml Syringe IV PUSH PRN PRN Hypoglycemia Protocol Glucagon 1 mg 04/06/25 13:14 Glucagon For Inj 1 Mg Vial IM PRN PRN Hypoglycemia Protocol Glucose 15 gm 04/06/25 13:14 Glucose Oral Gel 15 Gm Of Glucse In 37.5 Gm Tube PO PRN PRN Hypoglycemia Protocol Cefepime HCl 1 gm in 50 mls @ 100 mls/hr 04/06/25 14:00 04/06/25 14:05 Maxipime 1 Gm/Ns 50 Ml IVPB 100 mls/hr Q24H KIRSTEN Administration Dextrose 1,000 mls @ 100 mls/hr 04/06/25 13:14 Dextrose 5% 1,000 Ml IVPB PRN PRN Hypoglycemia Protocol Sodium Bicarbonate 75 meq/ 1,075 mls @ 75 mls/hr 04/06/25 18:15 04/06/25 20:24 Sodium Chloride IV CONT 75 mls/hr .[id number] KIRSTEN Administration Irbesartan 75 mg 04/06/25 13:35 04/06/25 14:03 Irbesartan 75 Mg Tablet PO 75 mg DAILY KIRSTEN Administration Loperamide HCl 4 mg 04/06/25 17:00 04/06/25 17:24 Loperamide Hcl 2 Mg Capsule PO 4 mg BID KIRSTEN Administration Magnesium Chloride 71.5 mg 04/06/25 13:35 04/06/25 14:03 Magnesium Chloride 64 Mg Tablet PO 71.5 mg DAILY KIRSTEN Administration Methylprednisolone 4 mg 04/06/25 14:30 04/07/25 05:33 Methylprednisolone (Medrol) Dosepack 4 Mg Tablets PO 04/10/25 07:29 4 mg 0630,1200,1700,2100 KIRSTEN Administration Taper Ondansetron HCl 4 mg 04/06/25 10:38 Ondansetron Inj 4 Mg/2 Ml Vial IV PUSH Q4H PRN Nausea Pantoprazole Sodium 40 mg 04/06/25 13:35 04/06/25 14:05 Pantoprazole 40 Mg Tablet PO 40 mg QAM KIRSTEN Administration Ropinirole HCl 3 mg 04/06/25 21:00 04/06/25 20:25 Ropinirole Hcl 1 Mg Tablet PO 3 mg HS KIRSTEN Administration Sitagliptin Phosphate 50 mg 04/06/25 13:35 04/06/25 14:03 Sitagliptin Phosphate 50 Mg Tablet PO 50 mg DAILY KIRSTEN Administration Sodium Bicarbonate 1,300 mg 04/07/25 09:00 Sodium Bicarbonate Tab 650 Mg Tablet PO BID [facility] Sodium Zirconium Cyclosilicate 10 gm 04/07/25 10:00 Sodium Zirconium Cyclosilicate 10 Gm Powd.Pack PO DAILY@1000 [facility] Vitamin D 1,000 units 04/06/25 13:35 04/06/25 14:04 Cholecalciferol 1,000 Units Tablet PO 1,000 units DAILY KIRSTEN Administration Radiology Results: ITS Impressions Chest X-Ray 04/06/25 09:42 IMPRESSION: No acute cardiopulmonary pathology. Abdomen/Pelvis CT 04/06/25 10:11 Impression: Moderate to advanced right hydroureteronephrosis is similar to prior exam, now with ureteral stent in place. 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 No discrete mass lesion evident. Appearance is similar to prior exam. Probable cystitis. Correlate with urinalysis. No significant abnormality in the chest. Labs Labs: Laboratory Results - last 24 hr 04/06/25 04/06/25 04/06/25 09:31 09:49 11:32 WBC 4.4 L RBC 2.69 L Hgb 7.7 L Hct 25.7 L MCV 95.5 MCH 28.6 MCHC 30.0 L RDW 14.9 H Plt Count 204 D MPV 9.9 Immature Gran % (Auto) 3.2 H Neut % (Auto) 83.9 H Lymph % (Auto) 10.[address] % (Auto) 2.3 L Eos % (Auto) 0.0 Baso % (Auto) 0.0 L Lymph # (Auto) 0.[address] # (Auto) 0.1 Eos # (Auto) 0.0 Baso # (Auto) 0.0 Abs Immat Gran (auto) 0.14 H Absolute Neuts (auto) 3.7 Absolute Nucleated RBC 0.000 Nucleated RBC % 0.0 Sodium 138 Potassium 6.5 H* Chloride 112 H Carbon Dioxide < 5 L Anion Gap BUN 99 H D Creatinine 10.98 H Estim Creat Clear Calc 5 Estimated GFR 5 L Glucose 207 H POC Capillary Glucose 184 H Calcium 8.3 L Magnesium 1.0 L Iron TIBC % Saturation Ferritin Total Bilirubin 0.4 AST 25 ALT 28 Alkaline Phosphatase 66 Total Creatine Kinase Total Protein 8.0 Albumin 3.9 Vitamin B12 Folate Urine Color Yellow Urine Appearance Cloudy H Urine pH 5.0 Ur Specific [place] 1.013 Urine Protein 2+ H Urine Glucose (UA) Negative Urine Ketones Negative Ur Blood (Man) 3+ H Urine Nitrate Negative Urine Bilirubin Negative Urine Urobilinogen 0.2 Add Ur Microanalysis Reviewed Leukocyte Esterase Rfl 3+ H Urine RBC >100 H Urine WBC >100 H Ur Squamous Epith Cells None seen Urine Bacteria 3+ H Urine Casts 0-2 Urine Yeast (Budding) Present H U Random Total Protein Ur Random Sodium Ur Random Urea Urine Creatinine Protein/Creat Ratio 2 Hep Bs Antigen 04/06/25 04/06/25 04/06/25 14:53 16:22 19:02 WBC 5.7 RBC 2.60 L Hgb 7.5 L Hct 24.1 L MCV 92.7 MCH 28.8 MCHC 31.1 L RDW 14.8 H Plt Count 196 MPV 9.8 Immature Gran % (Auto) 2.1 H Neut % (Auto) 79.8 H Lymph % (Auto) 13.[address] % (Auto) 4.1 Eos % (Auto) 0.0 Baso % (Auto) 0.2 Lymph # (Auto) 0.[address] # (Auto) 0.2 Eos # (Auto) 0.0 Baso # (Auto) 0.0 Abs Immat Gran (auto) 0.12 H Absolute Neuts (auto) 4.5 Absolute Nucleated RBC 0.000 Nucleated RBC % 0.0 Sodium 140 Potassium 5.7 H Chloride 114 H Carbon Dioxide 7 L Anion Gap 19 H BUN 95 H Creatinine 10.04 H Estim Creat Clear Calc 5 Estimated GFR 5 L Glucose 126 H POC Capillary Glucose 305 H 210 H Calcium 8.3 L Magnesium Iron TIBC % Saturation Ferritin Total Bilirubin 0.4 AST 19 ALT 25 Alkaline Phosphatase 63 Total Creatine Kinase Total Protein 8.0 Albumin 3.7 Vitamin B12 Folate Urine Color Urine Appearance Urine pH Ur Specific [place] Urine Protein Urine Glucose (UA) Urine Ketones Ur Blood (Man) Urine Nitrate Urine Bilirubin Urine Urobilinogen Add Ur Microanalysis Leukocyte Esterase Rfl Urine RBC Urine WBC Ur Squamous Epith Cells Urine Bacteria Urine Casts Urine Yeast (Budding) U Random Total Protein Ur Random Sodium Ur Random Urea Urine Creatinine Protein/Creat Ratio 2 Hep Bs Antigen 04/06/25 04/07/25 04/07/25 20:27 05:06 05:20 WBC 4.9 RBC 2.61 L Hgb 7.5 L Hct 24.3 L MCV 93.1 MCH 28.7 MCHC 30.9 L RDW 14.6 H Plt Count 207 MPV 10.1 Immature Gran % (Auto) 1.0 H Neut % (Auto) 88.3 H Lymph % (Auto) 9.[address] % (Auto) 1.4 L Eos % (Auto) 0.0 Baso % (Auto) 0.0 L Lymph # (Auto) 0.[address] # (Auto) 0.1 Eos # (Auto) 0.0 Baso # (Auto) 0.0 Abs Immat Gran (auto) 0.05 H Absolute Neuts (auto) 4.3 Absolute Nucleated RBC 0.000 Nucleated RBC % 0.0 Sodium 140 141 Potassium 5.3 H 5.6 H Chloride 113 H 112 H Carbon Dioxide 9 L 10 L Anion Gap 18 H 19 H BUN 92 H 95 H Creatinine 9.47 H 8.43 H Estim Creat Clear Calc 6 6 Estimated GFR 5 L 6 L Glucose 222 H 171 H POC Capillary Glucose Calcium 8.1 L 7.9 L Magnesium 1.4 L Iron 122 TIBC 223 L % Saturation 55 H Ferritin 515.00 H Total Bilirubin 0.4 AST 25 ALT 31 Alkaline Phosphatase 59 Total Creatine Kinase 32 L Total Protein 8.0 Albumin 3.6 Vitamin B12 918.0 Folate 6.1 Urine Color Urine Appearance Urine pH Ur Specific [place] Urine Protein Urine Glucose (UA) Urine Ketones Ur Blood (Man) Urine Nitrate Urine Bilirubin Urine Urobilinogen Add Ur Microanalysis Leukocyte Esterase Rfl Urine RBC Urine WBC Ur Squamous Epith Cells Urine Bacteria Urine Casts Urine Yeast (Budding) U Random Total Protein 104 Ur Random Sodium Ur Random Urea Urine Creatinine Protein/Creat Ratio 2 Hep Bs Antigen Negative 04/07/25 04/07/25 05:20 05:20 WBC RBC Hgb Hct MCV MCH MCHC RDW Plt Count MPV Immature Gran % (Auto) Neut % (Auto) Lymph % (Auto) Lane % (Auto) Eos % (Auto) Baso % (Auto) Lymph # (Auto) Lane # (Auto) Eos # (Auto) Baso # (Auto) Abs Immat Gran (auto) Absolute Neuts (auto) Absolute Nucleated RBC Nucleated RBC % Sodium Potassium Chloride Carbon Dioxide Anion Gap BUN Creatinine Estim Creat Clear Calc Estimated GFR Glucose POC Capillary Glucose Calcium Magnesium Iron TIBC % Saturation Ferritin Total Bilirubin AST ALT Alkaline Phosphatase Total Creatine Kinase Total Protein Albumin Vitamin B12 Folate Urine Color Urine Appearance Urine pH Ur Specific [place] Urine Protein Urine Glucose (UA) Urine Ketones Ur Blood (Man) Urine Nitrate Urine Bilirubin Urine Urobilinogen Add Ur Microanalysis Leukocyte Esterase Rfl Urine RBC Urine WBC Ur Squamous Epith Cells Urine Bacteria Urine Casts Urine Yeast (Budding) U Random Total Protein 104 Ur Random Sodium 66 Ur Random Urea 397 Urine Creatinine 54.5 54.5 Protein/Creat Ratio 2 1.91 H Hep Bs Antigen
[2025-04-07 07:08] LABS: Hepatitis B Surface Anti Res Negative
--- NOTE | 2025-04-07 07:14 | PM.IMPN ---
Progress Note: A&P Assessment and Plan (1) Acute on chronic kidney failure: Qualifiers: Acute renal failure type: unspecified Chronic kidney disease stage: unspecified stage Qualified Code(s): N17.9 - Acute kidney failure, unspecified; N18.9 - Chronic kidney disease, unspecified Code(s): N17.9 - Acute kidney failure, unspecified; N18.9 - Chronic kidney disease, unspecified Status: Acute Assessment and Plan: 03/15: D/c'd with renal function of - 4.16, BUN 48, GFR 14. 04/06: Renal function -10.98, BUN 99, GFR 5. Previously, urology recommended long-term indwelling ureteral stent, this, in congruence w/ frequent UTIs and solitary kidney likely all contributing factors. Follows with Dr. Olvin Dixon at [facility] for management of his CKD Hyperkalemia and mild hypomagnesium presumed secondary to worsening renal function. Nephrology and Urology consulted 04/07: Cr 8.43, BUN 95, GFR 6 Etiology unclear, likely component of volume depletion, infection (UTI), ARB use Continue to follow creatinine trends (2) Acute hyperkalemia: Code(s): E87.5 - Hyperkalemia Status: Resolved Assessment and Plan: In ED: K 6.5 Initial treatment with bicarb, Lokelma, calcium, insulin/dextrose and IV fluids. Repeat this evening. Likely secondary to MERI/ARB use Monitor 04/07: K = 5.3 (3) UTI (urinary tract infection): Qualifiers: Hematuria presence: without hematuria Urinary tract infection type: acute cystitis Qualified Code(s): N30.00 - Acute cystitis without hematuria Code(s): N39.0 - Urinary tract infection, site not specified Status: Acute Assessment and Plan: - UA: Cloudy, 2+ protein, 3+ blood, 3+ leuks, greater than 100 RBC and WBC, 3+ bacteria, no epithelial cells, yeast present. - UC pending, follow - previous micro reviewed: Enterobacter on 03/10 with resistance to Augementin, Ancef, and Zosyn. Intermediate to ceftazidime. - started on cefepime on 04/06 - antipyretics p.r.n., IV fluids (4) Metabolic acidosis: Code(s): E87.20 - Acidosis, unspecified Status: Acute Assessment and Plan: CO2: 10 Likely secondary to MERI Will supplement with oral bicarbonate and 1/2 NS +75 mEq sodium bicarbonate IV fluids Continue to monitor CO2 levels (5) Anemia: Qualifiers: Anemia type: due to chronic kidney disease Chronic kidney disease stage: unspecified stage Qualified Code(s): N18.9 - Chronic kidney disease, unspecified; D63.1 - Anemia in chronic kidney disease Code(s): D64.9 - Anemia, unspecified Status: Chronic Assessment and Plan: - Hgb 7.7, previously 8.8 on 03/14. Slightly decreased compared to baseline. - history of anemia, presumed secondary to chronic kidney disease/worsening renal function. - transfuse if <7 - trend H&H (6) Hypertension: Qualifiers: Hypertension type: primary hypertension Qualified Code(s): I10 - Essential (primary) hypertension Code(s): I10 - Essential (primary) hypertension Status: Chronic Assessment and Plan: - chronic, currently 152/63 - continue home medications: Amlodipine, irbesartan - monitor (7) Prediabetes: Code(s): R73.03 - Prediabetes Status: Acute Assessment and Plan: - A1c 6.3% on 02/18/2025 - controlled with diet and Januvia. Continue Januvia. - hypoglycemia protocol ordered Plan Diet: NPO GI Prophylaxis: Not currently indicated DVT Prophylaxis: SCDs IV fluids: NS at 125 mL/hour Lines/Tubes: Peripheral IV, Uriarte? Code Status: Full code Time Spent With Patient Time: Subjective Date/time seen: 04/07/25 07:14 Interval history: 74 y/o M with PMH of CKD, carcinoma of colorectal region (s/p radiation, total colectomy, and partial small-bowel resection), HTN, RLS, HLD, Crohn's disease, kidney stones, nephrectomy (left, 2012), 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 04/07/2025 Patient has been sitting in bed comfortably. Nephrology and Urology have been consulted. Creatinine improving on admission 10.98, now 8.43. Will likely want to bring this down to baseline (roughly 4.0). UA suggestive of infection, moderate proteinuria. We will need to keep treating MERI and UTI, will monitor potassium and CO2 levels. Otherwise patient is stable and has no complaints. Review of Systems Review of Systems: All systems reviewed & are unremarkable except as noted in HPI and below Exam Const: General: comfortable and no acute distress Other: , male, elderly, nontoxic appearance HENMT: Face/Nose/Sinus: Normal nares present Mouth: Yes moist mucous membranes Eyes: General: appearance normal, both eyes and all related structures Sclera: sclerae normal Pupils: Equal, round and reactive pupils present EOM: EOMs intact bilaterally Resp: Effort & Inspection: normal respiratory effort Auscultation: clear to auscultation bilaterally Cardio: Rate: regular rate Rhythm: regular rhythm Other: S1-S2 present without murmur, rub, ectopy GI: Other: Abdomen soft, nondistended, nontender. Normoactive bowel sounds in all quadrants. Skin: General skin exam: normal color and no rashes or lesions noted Wounds: no wounds Neuro: Cranial nerves: Yes Equal, round and reactive pupils present Speech: normal speech Motor exam (neuro): 5/5 motor strength present throughout Sensory Exam: normal sensation Other: A&O x4 Extrem: General: normal to inspection Psych: Mental Status: mental status grossly normal Affect: normal affect Other: Good insight and judgment, pleasant Objective Data Vital Signs Vital Signs: Vital Signs - 24 hr 04/06/25 09:08 04/06/25 10:49 04/06/25 11:01 Temperature 98.2 F Pulse Rate 73 70 77 Respiratory Rate 16 14 17 Blood Pressure 149/66 H 157/71 H 156/80 H Pulse Oximetry 98 100 100 Oxygen Delivery 04/06/25 11:16 04/06/25 11:30 04/06/25 11:31 Temperature Pulse Rate 71 72 73 Respiratory Rate 15 14 17 Blood Pressure 138/68 126/57 L Pulse Oximetry 100 100 100 Oxygen Delivery 04/06/25 11:46 04/06/25 11:47 04/06/25 12:01 Temperature Pulse Rate 72 73 78 Respiratory Rate 17 16 16 Blood Pressure 126/71 137/63 Pulse Oximetry 100 99 99 Oxygen Delivery 04/06/25 12:35 04/06/25 20:00 04/06/25 20:20 Temperature 97.3 F L Pulse Rate 68 71 Respiratory Rate 16 Blood Pressure 152/63 H Pulse Oximetry 100 Oxygen Delivery Room Air 04/06/25 20:42 04/07/25 00:00 04/07/25 04:00 Temperature 97.8 F Pulse Rate 70 59 L 61 Respiratory Rate 16 Blood Pressure 147/69 H Pulse Oximetry 100 Oxygen Delivery 04/07/25 05:42 Temperature 97.6 F Pulse Rate 62 Respiratory Rate 16 Blood Pressure 147/74 H Pulse Oximetry 99 Oxygen Delivery Intake/Output Intake/Output: Intake & Output 04/04/25 04/05/25 04/06/25 04/07/25 23:59 23:59 23:59 23:59 Intake Total 698 Output Total 2150 550 Balance -1452 -550 Meds/Results Medications: Active Medications Generic Name Dose Route Start Last Admin Trade Name Freq PRN Reason Stop Dose Admin Acetaminophen 650 mg 04/06/25 10:38 Acetaminophen 325 Mg Tablet PO Q4H PRN Mild Pain (1-3) or Fever Amlodipine Besylate 10 mg 04/07/25 09:00 Amlodipine Besylate 10 Mg Tablet PO DAILY KIRSTEN Atorvastatin Calcium 20 mg 04/06/25 13:35 04/06/25 14:05 Atorvastatin 20 Mg Tablet PO 20 mg DAILY KIRSTEN Administration Cyanocobalamin 2,000 mcg 04/06/25 13:35 04/06/25 14:04 Cyanocobalamin 1,000 Mcg Tablet PO 2,000 mcg DAILY KIRSTEN Administration Dextrose 12.5 gm 04/06/25 13:14 Dextrose 50% 25 Gm/50 Ml Syringe IV PUSH PRN PRN Hypoglycemia Protocol Glucagon 1 mg 04/06/25 13:14 Glucagon For Inj 1 Mg Vial IM PRN PRN Hypoglycemia Protocol Glucose 15 gm 04/06/25 13:14 Glucose Oral Gel 15 Gm Of Glucse In 37.5 Gm Tube PO PRN PRN Hypoglycemia Protocol Cefepime HCl 1 gm in 50 mls @ 100 mls/hr 04/06/25 14:00 04/06/25 14:05 Maxipime 1 Gm/Ns 50 Ml IVPB 100 mls/hr Q24H KIRSTEN Administration Dextrose 1,000 mls @ 100 mls/hr 04/06/25 13:14 Dextrose 5% 1,000 Ml IVPB PRN PRN Hypoglycemia Protocol Sodium Bicarbonate 75 meq/ 1,075 mls @ 75 mls/hr 04/06/25 18:15 04/06/25 20:24 Sodium Chloride IV CONT 75 mls/hr .[id number] KIRSTEN Administration Irbesartan 75 mg 04/06/25 13:35 04/06/25 14:03 Irbesartan 75 Mg Tablet PO 75 mg DAILY KIRSTEN Administration Loperamide HCl 4 mg 04/06/25 17:00 04/06/25 17:24 Loperamide Hcl 2 Mg Capsule PO 4 mg BID KIRSTEN Administration Magnesium Chloride 71.5 mg 04/06/25 13:35 04/06/25 14:03 Magnesium Chloride 64 Mg Tablet PO 71.5 mg DAILY KIRSTEN Administration Methylprednisolone 4 mg 04/06/25 14:30 04/07/25 05:33 Methylprednisolone (Medrol) Dosepack 4 Mg Tablets PO 04/10/25 07:29 4 mg 0630,1200,1700,2100 KIRSTEN Administration Taper Ondansetron HCl 4 mg 04/06/25 10:38 Ondansetron Inj 4 Mg/2 Ml Vial IV PUSH Q4H PRN Nausea Pantoprazole Sodium 40 mg 04/06/25 13:35 04/06/25 14:05 Pantoprazole 40 Mg Tablet PO 40 mg QAM KIRSTEN Administration Ropinirole HCl 3 mg 04/06/25 21:00 04/06/25 20:25 Ropinirole Hcl 1 Mg Tablet PO 3 mg HS KIRSTEN Administration Sitagliptin Phosphate 50 mg 04/06/25 13:35 04/06/25 14:03 Sitagliptin Phosphate 50 Mg Tablet PO 50 mg DAILY KIRSTEN Administration Sodium Bicarbonate 1,300 mg 04/07/25 09:00 Sodium Bicarbonate Tab 650 Mg Tablet PO BID [facility] Sodium Zirconium Cyclosilicate 10 gm 04/07/25 10:00 Sodium Zirconium Cyclosilicate 10 Gm Powd.Pack PO DAILY@1000 [facility] Vitamin D 1,000 units 04/06/25 13:35 04/06/25 14:04 Cholecalciferol 1,000 Units Tablet PO 1,000 units DAILY KIRSTEN Administration Radiology Results: ITS Impressions Chest X-Ray 04/06/25 09:42 IMPRESSION: No acute cardiopulmonary pathology. Abdomen/Pelvis CT 04/06/25 10:11 Impression: Moderate to advanced right hydroureteronephrosis is similar to prior exam, now with ureteral stent in place. 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 No discrete mass lesion evident. Appearance is similar to prior exam. Probable cystitis. Correlate with urinalysis. No significant abnormality in the chest. Labs Labs: Laboratory Results - last 24 hr 04/06/25 04/06/25 04/06/25 09:31 09:49 11:32 WBC 4.4 L RBC 2.69 L Hgb 7.7 L Hct 25.7 L MCV 95.5 MCH 28.6 MCHC 30.0 L RDW 14.9 H Plt Count 204 D MPV 9.9 Immature Gran % (Auto) 3.2 H Neut % (Auto) 83.9 H Lymph % (Auto) 10.6 L [place] % (Auto) 2.3 L Eos % (Auto) 0.0 Baso % (Auto) 0.0 L Lymph # (Auto) 0.47 L [place] # (Auto) 0.1 Eos # (Auto) 0.0 Baso # (Auto) 0.0 Abs Immat Gran (auto) 0.14 H Absolute Neuts (auto) 3.7 Absolute Nucleated RBC 0.000 Nucleated RBC % 0.0 Sodium 138 Potassium 6.5 H* Chloride 112 H Carbon Dioxide < 5 L Anion Gap BUN 99 H D Creatinine 10.98 H Estim Creat Clear Calc 5 Estimated GFR 5 L Glucose 207 H POC Capillary Glucose 184 H Calcium 8.3 L Magnesium 1.0 L Iron TIBC % Saturation Ferritin Total Bilirubin 0.4 AST 25 ALT 28 Alkaline Phosphatase 66 Total Creatine Kinase Total Protein 8.0 Albumin 3.9 Vitamin B12 Folate Urine Color Yellow Urine Appearance Cloudy H Urine pH 5.0 Ur Specific [place] 1.013 Urine Protein 2+ H Urine Glucose (UA) Negative Urine Ketones Negative Ur Blood (Man) 3+ H Urine Nitrate Negative Urine Bilirubin Negative Urine Urobilinogen 0.2 Add Ur Microanalysis Reviewed Leukocyte Esterase Rfl 3+ H Urine RBC >100 H Urine WBC >100 H Ur Squamous Epith Cells None seen Urine Bacteria 3+ H Urine Casts 0-2 Urine Yeast (Budding) Present H U Random Total Protein Ur Random Sodium Ur Random Urea Urine Creatinine Protein/Creat Ratio 2 Hep Bs Antigen Hep Bs Antibody 04/06/25 04/06/25 04/06/25 14:53 16:22 19:02 WBC 5.7 RBC 2.60 L Hgb 7.5 L Hct 24.1 L MCV 92.7 MCH 28.8 MCHC 31.1 L RDW 14.8 H Plt Count 196 MPV 9.8 Immature Gran % (Auto) 2.1 H Neut % (Auto) 79.8 H Lymph % (Auto) 13.8 L [place] % (Auto) 4.1 Eos % (Auto) 0.0 Baso % (Auto) 0.2 Lymph # (Auto) 0.78 L [place] # (Auto) 0.2 Eos # (Auto) 0.0 Baso # (Auto) 0.0 Abs Immat Gran (auto) 0.12 H Absolute Neuts (auto) 4.5 Absolute Nucleated RBC 0.000 Nucleated RBC % 0.0 Sodium 140 Potassium 5.7 H Chloride 114 H Carbon Dioxide 7 L Anion Gap 19 H BUN 95 H Creatinine 10.04 H Estim Creat Clear Calc 5 Estimated GFR 5 L Glucose 126 H POC Capillary Glucose 305 H 210 H Calcium 8.3 L Magnesium Iron TIBC % Saturation Ferritin Total Bilirubin 0.4 AST 19 ALT 25 Alkaline Phosphatase 63 Total Creatine Kinase Total Protein 8.0 Albumin 3.7 Vitamin B12 Folate Urine Color Urine Appearance Urine pH Ur Specific [place] Urine Protein Urine Glucose (UA) Urine Ketones Ur Blood (Man) Urine Nitrate Urine Bilirubin Urine Urobilinogen Add Ur Microanalysis Leukocyte Esterase Rfl Urine RBC Urine WBC Ur Squamous Epith Cells Urine Bacteria Urine Casts Urine Yeast (Budding) U Random Total Protein Ur Random Sodium Ur Random Urea Urine Creatinine Protein/Creat Ratio 2 Hep Bs Antigen Hep Bs Antibody 04/06/25 04/07/25 04/07/25 20:27 05:06 05:20 WBC 4.9 RBC 2.61 L Hgb 7.5 L Hct 24.3 L MCV 93.1 MCH 28.7 MCHC 30.9 L RDW 14.6 H Plt Count 207 MPV 10.1 Immature Gran % (Auto) 1.0 H Neut % (Auto) 88.3 H Lymph % (Auto) 9.3 L [place] % (Auto) 1.4 L Eos % (Auto) 0.0 Baso % (Auto) 0.0 L Lymph # (Auto) 0.46 L [place] # (Auto) 0.1 Eos # (Auto) 0.0 Baso # (Auto) 0.0 Abs Immat Gran (auto) 0.05 H Absolute Neuts (auto) 4.3 Absolute Nucleated RBC 0.000 Nucleated RBC % 0.0 Sodium 140 141 Potassium 5.3 H 5.6 H Chloride 113 H 112 H Carbon Dioxide 9 L 10 L Anion Gap 18 H 19 H BUN 92 H 95 H Creatinine 9.47 H 8.43 H Estim Creat Clear Calc 6 6 Estimated GFR 5 L 6 L Glucose 222 H 171 H POC Capillary Glucose Calcium 8.1 L 7.9 L Magnesium 1.4 L Iron 122 TIBC 223 L % Saturation 55 H Ferritin 515.00 H Total Bilirubin 0.4 AST 25 ALT 31 Alkaline Phosphatase 59 Total Creatine Kinase 32 L Total Protein 8.0 Albumin 3.6 Vitamin B12 918.0 Folate 6.1 Urine Color Urine Appearance Urine pH Ur Specific [place] Urine Protein Urine Glucose (UA) Urine Ketones Ur Blood (Man) Urine Nitrate Urine Bilirubin Urine Urobilinogen Add Ur Microanalysis Leukocyte Esterase Rfl Urine RBC Urine WBC Ur Squamous Epith Cells Urine Bacteria Urine Casts Urine Yeast (Budding) U Random Total Protein 104 Ur Random Sodium Ur Random Urea Urine Creatinine Protein/Creat Ratio 2 Hep Bs Antigen Negative Hep Bs Antibody Negative 04/07/25 04/07/25 05:20 05:20 WBC RBC Hgb Hct MCV MCH MCHC RDW Plt Count MPV Immature Gran % (Auto) Neut % (Auto) Lymph % (Auto) [place] % (Auto) Eos % (Auto) Baso % (Auto) Lymph # (Auto) [place] # (Auto) Eos # (Auto) Baso # (Auto) Abs Immat Gran (auto) Absolute Neuts (auto) Absolute Nucleated RBC Nucleated RBC % Sodium Potassium Chloride Carbon Dioxide Anion Gap BUN Creatinine Estim Creat Clear Calc Estimated GFR Glucose POC Capillary Glucose Calcium Magnesium Iron TIBC % Saturation Ferritin Total Bilirubin AST ALT Alkaline Phosphatase Total Creatine Kinase Total Protein Albumin Vitamin B12 Folate Urine Color Urine Appearance Urine pH Ur Specific [place] Urine Protein Urine Glucose (UA) Urine Ketones Ur Blood (Man) Urine Nitrate Urine Bilirubin Urine Urobilinogen Add Ur Microanalysis Leukocyte Esterase Rfl Urine RBC Urine WBC Ur Squamous Epith Cells Urine Bacteria Urine Casts Urine Yeast (Budding) U Random Total Protein 104 Ur Random Sodium 66 Ur Random Urea 397 Urine Creatinine 54.5 54.5 Protein/Creat Ratio 2 1.91 H Hep Bs Antigen Hep Bs Antibody Quality VTE Prophylaxis VTE prophylaxis: mechanical ordered
[2025-04-07] MEDS: SODIUM BICARBONATE TAB 650 MG TABLET 1300 MG PO ×2 (09:22→16:34)
[2025-04-07] MEDS: SODIUM ZIRCONIUM CYCLOSILICATE 10 GM POWD.PACK PO (09:22)
[2025-04-07] MEDS: LOPERAMIDE HCL 2 MG CAPSULE 4 MG PO ×2 (09:22→16:34)
[2025-04-07] MEDS: ATORVASTATIN 20 MG TABLET PO (09:23)
[2025-04-07] MEDS: CYANOCOBALAMIN 1,000 MCG TABLET 2000 MCG PO (09:23)
[2025-04-07] MEDS: MAGNESIUM CHLORIDE 64 MG TABLET 71.5 MG PO (09:23)
[2025-04-07] MEDS: amLODIPine BESYLATE 10 MG TABLET PO (09:23)
[2025-04-07] MEDS: CHOLECALCIFEROL 1,000 UNITS TABLET 1000 UNITS PO (09:23)
[2025-04-07] MEDS: SITagliptin PHOSPHATE 50 MG TABLET PO (09:23)
[2025-04-07] MEDS: PANTOPRAZOLE 40 MG TABLET PO (09:23)
--- NOTE | 2025-04-07 09:45 | P.PNNP_ITS ---
Progress Note: A&P Assessment and Plan (1) Acute kidney injury: Code(s): N17.9 - Acute kidney failure, unspecified Status: Acute Assessment and Plan: * slow improvement noted * as noted by admission creatinine * records reviewed/noted: * creatinine did improve to 3.0mg/dl (on 03/09/25) * however, did worsen/rise given recent bacteremia/infection on February 2025 admission - discharge creatinine was 4.16mg/dl * creatinine on this admission - 10.98mg/dl * evaluation to date noted: * CT of A/P showed hydronephrosis (but ureteral stent in good position) * UA suggestive of infection * urine electrolytes non-prerenal * CPK normal/ow * moderate proteinuria * etiology not entirely clear... * element of volume depletion (given improvement with IVFs) * transient obstruction? * infection (possible UTI? -- had bacteremia on last hospitalization but this was appropriately treated...) * continued use of irbesartan therapy * other(?) * follow trend of repeat labs and UOP (2) Chronic kidney disease, stage IV (severe): Code(s): N18.4 - Chronic kidney disease, stage 4 (severe) Status: Acute Assessment and Plan: * last creatinine was 2.35mg/dl in December 2024 * this places him around CKD stage 3b/stage 4 * likely a result of his nephrectomy, hypertension, vascular disease and age- related change * given recent hospitalization for obstruction and infection/bacteremia -- he may have a new baseline... * follows with Dr. Olvin Dixon at [facility] for management of his CKD (3) Hyperkalemia: Code(s): E87.5 - Hyperkalemia Status: Acute Assessment and Plan: * due to MERI and possibly ARB use * doing better at this time * on lokelma * follow trend of K+ level (4) Metabolic acidosis: Code(s): E87.20 - Acidosis, unspecified Status: Acute Assessment and Plan: * due to MERI * on bicarb fluids (1/2NS + 75MEQ sodium bicarbonate) * attempting to compensate with use oral bicarbonate as well * follow CO2 levels (5) UTI (urinary tract infection): Qualifiers: Hematuria presence: without hematuria Urinary tract infection type: a cute cystitis Qualified Code(s): N30.00 - Acute cystitis without hematuria Code(s): N39.0 - Urinary tract infection, site not specified Status: Acute Assessment and Plan: * admission UA highly suggestive: * cloudy, 2+ protein, 3+ blood, 3+ leuks, greater than 100 RBC and WBC, 3+ bacteria, no epithelial cells, yeast present. * follow urine culture results * on antibiotics (6) Hydroureteronephrosis: Code(s): N13.30 - Unspecified hydronephrosis Status: Acute Assessment and Plan: * as noted by recent imaging studies * s/p cystoscopy, right retrograde pyelogram, right ureteral stent insertion (on 02/20) * right ureteral stent removal (on 03/09) * right ureteral stent replacement (on 03/10) as renal function acutely worsened after stent removal * Urology following (7) Anemia: Qualifiers: Anemia type: due to chronic kidney disease Chronic kidney disease stage: unspecified stage Qualified Code(s): N18.9 - Chronic kidney disease, unspecified; D63.1 - Anemia in chronic kidney disease Code(s): D64.9 - Anemia, unspecified Status: Chronic Assessment and Plan: * related to underlying CKD likely worsened by MERI * anemia studies with adequate iron stores * PRBC transfusion per protocol * consider Epogen while hospitalized * follow trend of H/H (8) Hypertension: Qualifiers: Hypertension type: primary hypertension Qualified Code(s): I10 - Essential (primary) hypertension Code(s): I10 - Essential (primary) hypertension Status: Chronic Assessment and Plan: * reasonable control at this time * holding ARB * follow trend of hemodynamics Will continue to follow. L Subjective Date/time seen: 04/07/25 9:45 Interval history: Follow-up for acute kidney injury/acute renal failure on chronic kidney disease. Renal function/creatinine along with potassium appears to be doing better with current interventions/therapy to date -- good urine output noted since admission; no apparent distress noted at the time of of my visit; no other issues/events overnight or earlier this morning. Exam 2 Narrative: General: elderly but WD/WN male in NAD Heart: normal S1 and S2; no rub Lungs: clear to auscultation Abdomen: soft, nontender, nondistended, positive bowel sounds Extremities: no cyanosis or clubbing; no edema Skin: warm and dry Objective Data Vital Signs Vital Signs: Vital Signs Temp Pulse Resp BP Pulse Ox O2 Del Method 04/07/25 08:00 65 04/07/25 08:00 Room Air 04/07/25 05:42 97.6 F 62 16 147/74 H 99 04/07/25 04:00 61 04/07/25 00:00 59 L 04/06/25 20:42 97.8 F 70 16 147/69 H 100 04/06/25 20:20 Room Air 04/06/25 20:00 71 04/06/25 12:35 97.3 F L 68 16 152/63 H 100 Intake/Output Intake/Output: Intake & Output 04/04/25 04/05/25 04/06/25 04/07/25 23:59 23:59 23:59 23:59 Intake Total 748 1195 Output Total 2150 550 Balance -1402 645 Meds/Results Medications: Active Medications Generic Name Dose Route Start Last Admin Trade Name Freq PRN Reason Stop Dose Admin Acetaminophen 650 mg 04/06/25 10:38 Acetaminophen 325 Mg Tablet PO Q4H PRN Mild Pain (1-3) or Fever Amlodipine Besylate 10 mg 04/07/25 09:00 04/07/25 09:23 Amlodipine Besylate 10 Mg Tablet PO 10 mg DAILY KIRSTEN Administration Atorvastatin Calcium 20 mg 04/06/25 13:35 04/07/25 09:23 Atorvastatin 20 Mg Tablet PO 20 mg DAILY KIRSTEN Administration Cyanocobalamin 2,000 mcg 04/06/25 13:35 04/07/25 09:23 Cyanocobalamin 1,000 Mcg Tablet PO 2,000 mcg DAILY KIRSTEN Administration Dextrose 12.5 gm 04/06/25 13:14 Dextrose 50% 25 Gm/50 Ml Syringe IV PUSH PRN PRN Hypoglycemia Protocol Glucagon 1 mg 04/06/25 13:14 Glucagon For Inj 1 Mg Vial IM PRN PRN Hypoglycemia Protocol Glucose 15 gm 04/06/25 13:14 Glucose Oral Gel 15 Gm Of Glucse In 37.5 Gm Tube PO PRN PRN Hypoglycemia Protocol Cefepime HCl 1 gm in 50 mls @ 100 mls/hr 04/06/25 14:00 04/06/25 14:35 Maxipime 1 Gm/Ns 50 Ml IVPB Infused Q24H KIRSTEN Infusion Dextrose 1,000 mls @ 100 mls/hr 04/06/25 13:14 Dextrose 5% 1,000 Ml IVPB PRN PRN Hypoglycemia Protocol Sodium Bicarbonate 75 meq/ 1,075 mls @ 75 mls/hr 04/06/25 18:15 04/07/25 10:58 Sodium Chloride IV CONT 75 mls/hr .[id number] KIRSTEN Administration Irbesartan 75 mg 04/06/25 13:35 04/06/25 14:03 Irbesartan 75 Mg Tablet PO 75 mg DAILY KIRSTEN Administration Loperamide HCl 4 mg 04/06/25 17:00 04/07/25 09:22 Loperamide Hcl 2 Mg Capsule PO 4 mg BID KIRSTEN Administration Magnesium Chloride 71.5 mg 04/06/25 13:35 04/07/25 09:23 Magnesium Chloride 64 Mg Tablet PO 71.5 mg DAILY KIRSTEN Administration Methylprednisolone 4 mg 04/06/25 14:30 04/07/25 11:22 Methylprednisolone (Medrol) Dosepack 4 Mg Tablets PO 04/10/25 07:29 4 mg 0630,1200,1700,2100 KIRSTEN Administration Taper Ondansetron HCl 4 mg 04/06/25 10:38 Ondansetron Inj 4 Mg/2 Ml Vial IV PUSH Q4H PRN Nausea Pantoprazole Sodium 40 mg 04/06/25 13:35 04/07/25 09:23 Pantoprazole 40 Mg Tablet PO 40 mg QAM KIRSTEN Administration Ropinirole HCl 3 mg 04/06/25 21:00 04/06/25 20:25 Ropinirole Hcl 1 Mg Tablet PO 3 mg HS KIRSTEN Administration Sitagliptin Phosphate 50 mg 04/06/25 13:35 04/07/25 09:23 Sitagliptin Phosphate 50 Mg Tablet PO 50 mg DAILY KIRSTEN Administration Sodium Bicarbonate 1,300 mg 04/07/25 09:00 04/07/25 09:22 Sodium Bicarbonate Tab 650 Mg Tablet PO 1,300 mg BID KIRSTEN Administration Sodium Zirconium Cyclosilicate 10 gm 04/07/25 10:00 04/07/25 09:22 Sodium Zirconium Cyclosilicate 10 Gm Powd.Pack PO 10 gm DAILY@1000 KIRSTEN Administration Vitamin D 1,000 units 04/06/25 13:35 04/07/25 09:23 Cholecalciferol 1,000 Units Tablet PO 1,000 units DAILY KIRSTEN Administration Radiology Results: ITS Impressions Chest X-Ray 04/06/25 09:42 IMPRESSION: No acute cardiopulmonary pathology. Abdomen/Pelvis CT 04/06/25 10:11 Impression: Moderate to advanced right hydroureteronephrosis is similar to prior exam, now with ureteral stent in place. 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 No discrete mass lesion evident. Appearance is similar to prior exam. Probable cystitis. Correlate with urinalysis. No significant abnormality in the chest. Labs Labs: Laboratory Tests 04/07/25 05:06 04/07/25 05:06 Calcium 7.9 L Magnesium 1.4 L Iron 122 TIBC 223 L % Saturation 55 H Ferritin 515.00 H Total Bilirubin 0.4 AST 25 ALT 31 Alkaline Phosphatase 59 Total Creatine Kinase 32 L Total Protein 8.0 Albumin 3.6 Vitamin B12 918.0 Folate 6.1
[2025-04-07] MEDS: SODIUM BICARBONATE 8.4% 75 MEQ in SODIUM CHLORIDE 0.45% 1,000 ML IV CONT (10:58)
[2025-04-07] MEDS: CEFEPIME 1 GM/NS 50 ML 1 GM/50 ML BAG IVPB (13:23)
[2025-04-07 17:10] LABS: Albumin Level 3.4 g/dL (3.5-5.1); Anion Gap 15 mmol/L (4-12); Blood Urea Nitrogen 88 mg/dL (9-20); Calcium 7.1 mg/dL (8.4-10.2); Carbon Dioxide 12 mmol/L (22-30); Chloride 107 mmol/L (98-107); Estimated CRCL calculation 7 ml/min; Estimated Glomerular Filt Rate 7; Glucose 246 mg/dL (65-110); Phosphorus 7.5 mg/dL (2.5-4.5); Potassium 4.9 mmol/L (3.4-5.0); Sodium 134 mmol/L (137-145)
[2025-04-07] MEDS: rOPINIRole HCL 1 MG TABLET 3 MG PO (20:12)
[2025-04-08] VITALS (10 sets, daily range): BP systolic 127–160; BP diastolic 62–71; PULSE 62–81; RESP 16–18; TEMP 36.8–37.1; O2SAT 96–98
[2025-04-08 02:14] LABS: Hepatitis B Core Ab Total NON-REACTIVE (NON-REACTIVE)
[2025-04-08] MEDS: ONDANSETRON INJ 4 MG/2 ML VIAL IV PUSH (03:04)
[2025-04-08] MEDS: methylPREDNISolone (MEDROL) DOSEPACK 4 MG TABLETS PO ×3 (05:30→21:09)
[2025-04-08 06:11] LABS: Basophils Percent Auto 0.1 % (0.2-1.2); Hematocrit 25.7 % (42.0-52.0); Hemoglobin 7.9 g/dL (14.0-18.0); Immature Granulocyte Absolute 0.14 K/mm3 (0.00-0.031); Immature Granulocyte Percent A 0.9 % (0-0.5); Lymphocytes Absolute Auto 0.66 K/mm3 (0.9-3.2); Lymphocytes Percent Auto 4.2 % (18.3-44.2); Mean Corpuscular HGB Conc 30.7 g/dl (32-36); Mean Corpuscular Hemoglobin 28.7 pg (26-34); Mean Corpuscular Volume 93.5 fl (80-100); Mean Platelet Volume 9.9 fl (7.4-10.4); Monocytes Absolute Auto 0.8 K/mm3 (0.1-0.6); Monocytes Percent Auto 5.1 % (2.6-8.5); Neutrophils Absolute Auto 14.2 K/mm3 (1.3-6.7); Neutrophils Percent Auto 89.7 % (45.5-73.1); Platelet Count Result 239 k/mm3 (150-375); Red Blood Count 2.75 M/mm3 (4.6-6.20); Red Cell Distribution Width 14.6 % (11.5-14.5); White Blood Count 15.8 K/mm3 (4.5-10.0)
[2025-04-08] MEDS: SODIUM BICARBONATE 8.4% 75 MEQ in SODIUM CHLORIDE 0.45% 1,000 ML IV CONT (06:31)
[2025-04-08 06:34] LABS: Albumin Level 3.4 g/dL (3.5-5.1); Anion Gap 14 mmol/L (4-12); Blood Urea Nitrogen 99 mg/dL (9-20); Calcium 7.2 mg/dL (8.4-10.2); Carbon Dioxide 15 mmol/L (22-30); Chloride 107 mmol/L (98-107); Estimated CRCL calculation 7 ml/min; Estimated Glomerular Filt Rate 7; Glucose 145 mg/dL (65-110); Phosphorus 8.1 mg/dL (2.5-4.5); Potassium 5.5 mmol/L (3.4-5.0); Sodium 136 mmol/L (137-145)
--- NOTE | 2025-04-08 07:07 | P.PNIM_ITS ---
Progress Note: A&P Assessment and Plan (1) Acute on chronic kidney failure: Qualifiers: Acute renal failure type: unspecified Chronic kidney disease stage: unspecified stage Qualified Code(s): N17.9 - Acute kidney failure, unspecified; N18.9 - Chronic kidney disease, unspecified Code(s): N17.9 - Acute kidney failure, unspecified; N18.9 - Chronic kidney disease, unsp ecified Status: Acute Assessment and Plan: * 03/15: D/c'd with renal function of - 4.16, BUN 48, GFR 14. * 04/06: Renal function -10.98, BUN 99, GFR 5. * Previously, urology recommended long-term indwelling ureteral stent, this, in congruence w/ frequent UTIs and solitary kidney likely all contributing fact ors. * Follows with Dr. Olvin Dixon at [facility] for management of his CKD * Hyperkalemia and mild hypomagnesium presumed secondary to worsening renal function. * Nephrology and Urology consulted, appreciate recommendations * 04/08: Cr 7.77, BUN 99, GFR 7 * Etiology unclear, likely component of volume depletion, infection (UTI), ARB use, steroid use * Continue to follow creatinine trends * Patient on steroid taper for worsening arthritis hands after 3 week ciprofloxacin treatment * Will maintain steroid taper and reassess tomorrow, will likely discontinue tomorrow if kidney function continues to decline (2) Acute hyperkalemia: Code(s): E87.5 - Hyperkalemia Status: Resolved Assessment and Plan: * In ED: K 6.5 * Initial treatment with bicarb, Lokelma, calcium, insulin/dextrose and IV fluids. Repeat this evening. * Likely secondary to MERI/ARB use * Monitor * 04/08: K = 5.5 * Continue Lokelma, sodium bicarb, magnesium chloride, and calcium (3) Hypocalcemia: Code(s): E83.51 - Hypocalcemia Status: Acute Assessment and Plan: * In ED: Ca 8.3 * 04/08, Ca 7.1 * Receiving 500mg Ca Carbonate and 1000 units Vit D daily * Continue to monitor daily (4) UTI (urinary tract infection): Qualifiers: Hematuria presence: without hematuria Urinary tract infection type: acute cystitis Qualified Code(s): N30.00 - Acute cystitis without hematuria Code(s): N39.0 - Urinary tract infection, site not specified Status: Acute Assessment and Plan: - UA: Cloudy, 2+ protein, 3+ blood, 3+ leuks, greater than 100 RBC and WBC, 3+ bacteria, no epithelial cells, yeast present. - UC pending, follow - previous micro reviewed: Enterobacter on 03/10 with resistance to Augementin, Ancef, and Zosyn. Intermediate to ceftazidime. - started on cefepime on 04/06 - antipyretics p.r.n., IV fluids (5) Metabolic acidosis: Code(s): E87.20 - Acidosis, unspecified Status: Acute Assessment and Plan: * CO2: 10 -> 15 * Likely secondary to MERI * Will supplement with oral bicarbonate and 1/2 NS +75 mEq sodium bicarbonate IV fluids * Continue to monitor CO2 levels (6) Anemia: Qualifiers: Anemia type: due to chronic kidney disease Chronic kidney disease stage: unspecified stage Qualified Code(s): N18.9 - Chronic kidney disease, unspecified; D63.1 - Anemia in chronic kidney disease Code(s): D64.9 - Anemia, unspecified Status: Chronic Assessment and Plan: - Hgb 7.7, previously 8.8 on 03/14. Slightly decreased compared to baseline. - history of anemia, presumed secondary to chronic kidney disease/worsening renal function. - transfuse if <7 - trend H&H (7) Hypertension: Qualifiers: Hypertension type: primary hypertension Qualified Code(s): I10 - Essential (primary) hypertension Code(s): I10 - Essential (primary) hypertension Status: Chronic Assessment and Plan: - chronic, currently 152/63 - continue home medications: Amlodipine, irbesartan - monitor (8) Prediabetes: Code(s): R73.03 - Prediabetes Status: Acute Assessment and Plan: - A1c 6.3% on 02/18/2025 - controlled with diet and Januvia. Continue Januvia. - hypoglycemia protocol ordered Plan Diet: NPO GI Prophylaxis: Not currently indicated DVT Prophylaxis: SCDs IV fluids: NS at 125 mL/hour Lines/Tubes: Peripheral IV, Uriarte? 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 04/08/2025 Patient has been sitting in bed comfortably. Denies any pain, complaints, or concerns today. Potassium still elevated at 5.5, will continue Lokelma daily. BUN also saw arise from 88->99 with a minimal rise in creatinine 7.31->7.77. Patient has been on a steroid taper for worsening arthritis and has 2 days left after today. I spoke with Dr. Magaña who that will maintain the steroid taper until as the dose will be decreasing, and will keep an the BUN/creatinine. Otherwise patient is stable and has no complaints as of this time. Review of Systems Review of Systems: All systems reviewed & are unremarkable except as noted in HPI and below Exam Const: General: comfortable and no acute distress Other: , male, elderly, nontoxic appearance HENMT: Face/Nose/Sinus: Normal nares present Mouth: Yes moist mucous membranes Eyes: General: appearance normal, both eyes and all related structures Sclera: sclerae normal Pupils: Equal, round and reactive pupils present EOM: EOMs intact bilaterally Resp: Effort & Inspection: normal respiratory effort Auscultation: clear to auscultation bilaterally Cardio: Rate: regular rate Rhythm: regular rhythm Other: S1-S2 present without murmur, rub, ectopy GI: Other: Abdomen soft, nondistended, nontender. Normoactive bowel sounds in all quadrants. Skin: General skin exam: normal color and no rashes or lesions noted Wounds: no wounds Neuro: Cranial nerves: Yes Equal, round and reactive pupils present Speech: normal speech Motor exam (neuro): 5/5 motor strength present throughout Sensory Exam: normal sensation Other: A&O x4 Extrem: General: normal to inspection Psych: Mental Status: mental status grossly normal Affect: normal affect Other: Good insight and judgment, pleasant Objective Data Vital Signs Vital Signs: Vital Signs - 24 hr 04/07/25 08:00 04/07/25 08:00 04/07/25 12:00 Temperature Pulse Rate 65 72 Respiratory Rate Blood Pressure Pulse Oximetry Oxygen Delivery Room Air 04/07/25 14:09 04/07/25 14:38 04/07/25 16:00 Temperature 98.1 F Pulse Rate 72 68 Respiratory Rate 16 Blood Pressure 134/71 Pulse Oximetry 100 95 Oxygen Delivery Room Air 04/07/25 20:00 04/07/25 20:00 04/07/25 21:37 Temperature 97.9 F Pulse Rate 70 71 Respiratory Rate 18 Blood Pressure 135/69 Pulse Oximetry 97 Oxygen Delivery Room Air 04/08/25 00:00 04/08/25 04:00 04/08/25 05:44 Temperature 98.6 F Pulse Rate 62 65 74 Respiratory Rate 18 Blood Pressure 160/71 H Pulse Oximetry 98 Oxygen Delivery Intake/Output Intake/Output: Intake & Output 04/05/25 04/06/25 04/07/25 04/08/25 23:59 23:59 23:59 23:59 Intake Total 748 2725 1975 Output Total 2150 2950 250 Balance -1402 -225 1725 Meds/Results Medications: Active Medications Generic Name Dose Route Start Last Admin Trade Name Freq PRN Reason Stop Dose Admin Acetaminophen 650 mg 04/06/25 10:38 Acetaminophen 325 Mg Tablet PO Q4H PRN Mild Pain (1-3) or Fever Amlodipine Besylate 10 mg 04/07/25 09:00 04/07/25 09:23 Amlodipine Besylate 10 Mg Tablet PO 10 mg DAILY KIRSTEN Administration Atorvastatin Calcium 20 mg 04/06/25 13:35 04/07/25 09:23 Atorvastatin 20 Mg Tablet PO 20 mg DAILY KIRSTEN Administration Calcium Carbonate 500 mg 04/08/25 08:00 Calcium/Vitamin D 500 Mg/5 Mcg (200 I.U.) Tablet PO BIDWM KIRSTEN Cyanocobalamin 2,000 mcg 04/06/25 13:35 04/07/25 09:23 Cyanocobalamin 1,000 Mcg Tablet PO 2,000 mcg DAILY KIRSTEN Administration Dextrose 12.5 gm 04/06/25 13:14 Dextrose 50% 25 Gm/50 Ml Syringe IV PUSH PRN PRN Hypoglycemia Protocol Glucagon 1 mg 04/06/25 13:14 Glucagon For Inj 1 Mg Vial IM PRN PRN Hypoglycemia Protocol Glucose 15 gm 04/06/25 13:14 Glucose Oral Gel 15 Gm Of Glucse In 37.5 Gm Tube PO PRN PRN Hypoglycemia Protocol Cefepime HCl 1 gm in 50 mls @ 100 mls/hr 04/06/25 14:00 04/07/25 13:53 Maxipime 1 Gm/Ns 50 Ml IVPB Infused Q24H KIRSTEN Infusion Dextrose 1,000 mls @ 100 mls/hr 04/06/25 13:14 Dextrose 5% 1,000 Ml IVPB PRN PRN Hypoglycemia Protocol Sodium Bicarbonate 75 meq/ 1,075 mls @ 75 mls/hr 04/06/25 18:15 04/08/25 06:31 Sodium Chloride IV CONT 75 mls/hr .[id number] KIRSTEN Administration Irbesartan 75 mg 04/06/25 13:35 04/06/25 14:03 Irbesartan 75 Mg Tablet PO 75 mg DAILY KIRSTEN Administration Loperamide HCl 4 mg 04/06/25 17:00 04/07/25 16:34 Loperamide Hcl 2 Mg Capsule PO 4 mg BID KIRSTEN Administration Magnesium Chloride 71.5 mg 04/06/25 13:35 04/07/25 09:23 Magnesium Chloride 64 Mg Tablet PO 71.5 mg DAILY KIRSTEN Administration Methylprednisolone 4 mg 04/06/25 14:30 04/08/25 05:30 Methylprednisolone (Medrol) Dosepack 4 Mg Tablets PO 04/10/25 07:29 4 mg 0630,1200,2100 KIRSTEN Administration Taper Ondansetron HCl 4 mg 04/06/25 10:38 04/08/25 03:04 Ondansetron Inj 4 Mg/2 Ml Vial IV PUSH 4 mg Q4H PRN Administration Nausea Pantoprazole Sodium 40 mg 04/06/25 13:35 04/07/25 09:23 Pantoprazole 40 Mg Tablet PO 40 mg QAM KIRSTEN Administration Ropinirole HCl 3 mg 04/06/25 21:00 04/07/25 20:12 Ropinirole Hcl 1 Mg Tablet PO 3 mg HS KIRSTEN Administration Sitagliptin Phosphate 50 mg 04/06/25 13:35 04/07/25 09:23 Sitagliptin Phosphate 50 Mg Tablet PO 50 mg DAILY KIRSTEN Administration Sodium Bicarbonate 1,300 mg 04/07/25 09:00 04/07/25 16:34 Sodium Bicarbonate Tab 650 Mg Tablet PO 1,300 mg BID KIRSTEN Administration Sodium Zirconium Cyclosilicate 10 gm 04/07/25 10:00 04/07/25 09:22 Sodium Zirconium Cyclosilicate 10 Gm Powd.Pack PO 10 gm DAILY@1000 [facility] Administration Vitamin D 1,000 units 04/06/25 13:35 04/07/25 09:23 Cholecalciferol 1,000 Units Tablet PO 1,000 units DAILY KIRSTEN Administration Radiology Results: ITS Impressions Chest X-Ray 04/06/25 09:42 IMPRESSION: No acute cardiopulmonary pathology. Abdomen/Pelvis CT 04/06/25 10:11 Impression: Moderate to advanced right hydroureteronephrosis is similar to prior exam, now with ureteral stent in place. 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 No discrete mass lesion evident. Appearance is similar to prior exam. Probable cystitis. Correlate with urinalysis. No significant abnormality in the chest. Labs Labs: Laboratory Results - last 24 hr 04/07/25 04/07/25 04/08/25 05:06 16:40 05:47 WBC 15.8 H RBC 2.75 L Hgb 7.9 L Hct 25.7 L MCV 93.5 MCH 28.7 MCHC 30.7 L RDW 14.6 H Plt Count 239 MPV 9.9 Immature Gran % (Auto) 0.9 H Neut % (Auto) 89.7 H Lymph % (Auto) 4.2 L [place] % (Auto) 5.1 Eos % (Auto) 0.0 Baso % (Auto) 0.1 L Lymph # (Auto) 0.66 L [place] # (Auto) 0.8 H Eos # (Auto) 0.0 Baso # (Auto) 0.0 Abs Immat Gran (auto) 0.14 H Absolute Neuts (auto) 14.2 H Absolute Nucleated RBC 0.000 Nucleated RBC % 0.0 Sodium 134 L 136 L Potassium 4.9 5.5 H Chloride 107 107 Carbon Dioxide 12 L 15 L Anion Gap 15 H 14 H BUN 88 H 99 H D Creatinine 7.31 H 7.77 H Estim Creat Clear Calc 7 7 Estimated GFR 7 L 7 L Glucose 246 H 145 H Calcium 7.1 L 7.2 L Phosphorus 7.5 H 8.1 H Albumin 3.4 L 3.4 L Hep Bs Antibody Negative Hep B Core Total Ab Non-reactive Quality VTE Prophylaxis VTE prophylaxis: mechanical ordered
[2025-04-08] MEDS: SODIUM ZIRCONIUM CYCLOSILICATE 10 GM POWD.PACK PO ×2 (08:00→10:09)
[2025-04-08] MEDS: CALCIUM/VITAMIN D 500 MG/5 MCG (200 I.U.) TABLET PO ×2 (09:06→17:10)
[2025-04-08] MEDS: ATORVASTATIN 20 MG TABLET PO (09:06)
[2025-04-08] MEDS: amLODIPine BESYLATE 10 MG TABLET PO (09:06)
[2025-04-08] MEDS: LOPERAMIDE HCL 2 MG CAPSULE 4 MG PO ×2 (09:06→17:10)
[2025-04-08] MEDS: CYANOCOBALAMIN 1,000 MCG TABLET 2000 MCG PO (09:06)
[2025-04-08] MEDS: CHOLECALCIFEROL 1,000 UNITS TABLET 1000 UNITS PO (09:06)
[2025-04-08] MEDS: SODIUM BICARBONATE TAB 650 MG TABLET 1300 MG PO ×3 (09:07→21:09)
[2025-04-08] MEDS: PANTOPRAZOLE 40 MG TABLET PO (09:07)
[2025-04-08] MEDS: SITagliptin PHOSPHATE 50 MG TABLET PO (09:07)
[2025-04-08] MEDS: MAGNESIUM CHLORIDE 64 MG TABLET PO (09:11)
--- NOTE | 2025-04-08 09:56 | P.PNUR_ITS ---
Progress Note: A&P Assessment and Plan (1) Acute renal failure: Code(s): N17.9 - Acute kidney failure, unspecified Status: Acute (2) History of left nephrectomy: Code(s): Z90.5 - Acquired absence of kidney Status: Acute Assessment and Plan: * Serum creatinine this morning is essentially unchanged * Appreciate Dr. Magaña's input * Right ureteral stent appears to be in position. Residual right hydronephrosis likely results from chronic overdistention without true obstruction Subjective Subjective Date/Time Seen: 04/08/25 09:56 Interval history: Resting comfortably, I did not wake him Review of Systems Review of Systems: All systems reviewed & are unremarkable except as noted in HPI and below Exam Const: General: no acute distress Resp: Effort & Inspection: normal respiratory effort GI: Inspection: non-distended GI Palp: No abdominal tenderness and No Gua rding due to palpation present (GI) Auscultation: normal bowel sounds Objective Data Vital Signs Vital Signs: Vital Signs - 24 hr 04/07/25 12:00 04/07/25 14:09 04/07/25 14:38 Temperature 98.1 F Pulse Rate 72 72 Respiratory Rate 16 Blood Pressure 134/71 Pulse Oximetry 100 95 Oxygen Delivery Room Air 04/07/25 16:00 04/07/25 20:00 04/07/25 20:00 Temperature Pulse Rate 68 70 Respiratory Rate Blood Pressure Pulse Oximetry Oxygen Delivery Room Air 04/07/25 21:37 04/08/25 00:00 04/08/25 04:00 Temperature 97.9 F Pulse Rate 71 62 65 Respiratory Rate 18 Blood Pressure 135/69 Pulse Oximetry 97 Oxygen Delivery 04/08/25 05:44 04/08/25 08:00 04/08/25 09:05 Temperature 98.6 F Pulse Rate 74 81 72 Respiratory Rate 18 Blood Pressure 160/71 H 146/67 H Pulse Oximetry 98 98 Oxygen Delivery Intake/Output Intake/Output: Intake & Output 04/05/25 04/06/25 04/07/25 04/08/25 23:59 23:59 23:59 23:59 Intake Total 060 6206 5813 Output Total 2156 7631 231 [id number] -1830 -188 [facility] Meds/Results Medications: Active Medications Generic Name Dose Route Start Last Admin Trade Name Freq PRN Reason Stop Dose Admin Acetaminophen 650 mg 04/06/25 10:38 Acetaminophen 325 Mg Tablet PO Q4H PRN Mild Pain (1-3) or Fever Amlodipine Besylate 10 mg 04/07/25 09:00 04/08/25 09:06 Amlodipine Besylate 10 Mg Tablet PO 10 mg DAILY KIRSTEN Administration Atorvastatin Calcium 20 mg 04/06/25 13:35 04/08/25 09:06 Atorvastatin 20 Mg Tablet PO 20 mg DAILY KIRSTEN Administration Calcium Carbonate 500 mg 04/08/25 08:00 04/08/25 09:06 Calcium/Vitamin D 500 Mg/5 Mcg (200 I.U.) Tablet PO 500 mg BIDWM KIRSTEN Administration Cyanocobalamin 2,000 mcg 04/06/25 13:35 04/08/25 09:06 Cyanocobalamin 1,000 Mcg Tablet PO 2,000 mcg DAILY KIRSTEN Administration Dextrose 12.5 gm 04/06/25 13:14 Dextrose 50% 25 Gm/50 Ml Syringe IV PUSH PRN PRN Hypoglycemia Protocol Glucagon 1 mg 04/06/25 13:14 Glucagon For Inj 1 Mg Vial IM PRN PRN Hypoglycemia Protocol Glucose 15 gm 04/06/25 13:14 Glucose Oral Gel 15 Gm Of Glucse In 37.5 Gm Tube PO PRN PRN Hypoglycemia Protocol Cefepime HCl 1 gm in 50 mls @ 100 mls/hr 04/06/25 14:00 04/07/25 13:53 Maxipime 1 Gm/Ns 50 Ml IVPB Infused Q24H KIRSTEN Infusion Dextrose 1,000 mls @ 100 mls/hr 04/06/25 13:14 Dextrose 5% 1,000 Ml IVPB PRN PRN Hypoglycemia Protocol Sodium Bicarbonate 75 meq/ 1,075 mls @ 75 mls/hr 04/06/25 18:15 04/08/25 06:31 Sodium Chloride IV CONT 75 mls/hr .[id number] KIRSTEN Administration Irbesartan 75 mg 04/06/25 13:35 04/06/25 14:03 Irbesartan 75 Mg Tablet PO 75 mg DAILY KIRSTEN Administration Loperamide HCl 4 mg 04/06/25 17:00 04/08/25 09:06 Loperamide Hcl 2 Mg Capsule PO 4 mg BID KIRSTEN Administration Magnesium Chloride 64 mg 04/08/25 09:00 04/08/25 09:11 Magnesium Chloride 64 Mg Tablet PO 64 mg DAILY KIRSTEN Administration Methylprednisolone 4 mg 04/06/25 14:30 04/08/25 05:30 Methylprednisolone (Medrol) Dosepack 4 Mg Tablets PO 04/10/25 07:29 4 mg 0630,1200,2100 KIRSTEN Administration Taper Ondansetron HCl 4 mg 04/06/25 10:38 04/08/25 03:04 Ondansetron Inj 4 Mg/2 Ml Vial IV PUSH 4 mg Q4H PRN Administration Nausea Pantoprazole Sodium 40 mg 04/06/25 13:35 04/08/25 09:07 Pantoprazole 40 Mg Tablet PO 40 mg QAM KIRSTEN Administration Ropinirole HCl 3 mg 04/06/25 21:00 04/07/25 20:12 Ropinirole Hcl 1 Mg Tablet PO 3 mg HS KIRSTEN Administration Sitagliptin Phosphate 50 mg 04/06/25 13:35 04/08/25 09:07 Sitagliptin Phosphate 50 Mg Tablet PO 50 mg DAILY KIRSTEN Administration Sodium Bicarbonate 1,300 mg 04/07/25 09:00 04/08/25 09:07 Sodium Bicarbonate Tab 650 Mg Tablet PO 1,300 mg BID KIRSTEN Administration Sodium Zirconium Cyclosilicate 10 gm 04/07/25 10:00 04/07/25 09:22 Sodium Zirconium Cyclosilicate 10 Gm Powd.Pack PO 10 gm DAILY@1000 KIRSTEN Administration Vitamin D 1,000 units 04/06/25 13:35 04/08/25 09:06 Cholecalciferol 1,000 Units Tablet PO 1,000 units DAILY KIRSTEN Administration Radiology Results: ITS Impressions Chest X-Ray 04/06/25 09:42 IMPRESSION: No acute cardiopulmonary pathology. Abdomen/Pelvis CT 04/06/25 10:11 Impression: Moderate to advanced right hydroureteronephrosis is similar to prior exam, now with ureteral stent in place. 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 No discrete mass lesion evident. Appearance is similar to prior exam. Probable cystitis. Correlate with urinalysis. No significant abnormality in the chest. Labs Labs: Laboratory Results - last 24 hr 04/07/25 04/07/25 04/08/25 05:06 16:40 05:47 WBC 15.8 H RBC 2.75 L Hgb 7.9 L Hct 25.7 L MCV 93.5 MCH 28.7 MCHC 30.7 L RDW 14.6 H Plt Count 239 MPV 9.9 Immature Gran % (Auto) 0.9 H Neut % (Auto) 89.7 H Lymph % (Auto) 4.2 L [place] % (Auto) 5.1 Eos % (Auto) 0.0 Baso % (Auto) 0.1 L Lymph # (Auto) 0.66 L [place] # (Auto) 0.8 H Eos # (Auto) 0.0 Baso # (Auto) 0.0 Abs Immat Gran (auto) 0.14 H Absolute Neuts (auto) 14.2 H Absolute Nucleated RBC 0.000 Nucleated RBC % 0.0 Sodium 134 L 136 L Potassium 4.9 5.5 H Chloride 107 107 Carbon Dioxide 12 L 15 L Anion Gap 15 H 14 H BUN 88 H 99 H D Creatinine 7.31 H 7.77 H Estim Creat Clear Calc 7 7 Estimated GFR 7 L 7 L Glucose 246 H 145 H Calcium 7.1 L 7.2 L Phosphorus 7.5 H 8.1 H Magnesium 1.0 L Albumin 3.4 L 3.4 L Hep B Core Total Ab Non-reactive
--- NOTE | 2025-04-08 11:15 | P.PNNP_ITS ---
Progress Note: A&P Assessment and Plan (1) Acute kidney injury: Code(s): N17.9 - Acute kidney failure, unspecified Status: Acute Assessment and Plan: * slow improvement * as noted by admission creatinine * records reviewed/noted: * creatinine did improve to 3.0mg/dl (on 03/09/25) * however, did worsen/rise given recent bacteremia/infection on February 2025 admission - discharge creatinine was 4.16mg/dl * creatinine on this admission - 10.98mg/dl * evaluation to date noted: * CT of A/P showed hydronephrosis (but ureteral stent in good position) * UA suggestive of infection * urine electrolytes non-prerenal * CPK normal/ow * moderate proteinuria * etiology not entirely clear... * element of volume depletion (given improvement with IVFs) * recurrent obstruction? * infection (possible UTI? -- had bacteremia on last hospitalization but this was appropriately treated...) * continued use of irbesartan therapy * other(?) * follow trend of repeat labs and UOP (2) Chronic kidney disease, stage IV (severe): Code(s): N18.4 - Chronic kidney disease, stage 4 (severe) Status: Acute Assessment and Plan: * last creatinine was 2.35mg/dl in December 2024 * this places him around CKD stage 3b/stage 4 * likely a result of his nephrectomy, hypertension, vascular disease and age- related change * given recent hospitalization for obstruction and infection/bacteremia -- he may have a new baseline... * follows with Dr. Olvin Dixon at [facility] for management of his CKD (3) Hyperkalemia: Code(s): E87.5 - Hyperkalemia Status: Acute Assessment and Plan: * due to MERI and possibly ARB use * doing better at this time * follow trend of K+ level (4) Metabolic acidosis: Code(s): E87.20 - Acidosis, unspecified Status: Acute Assessment and Plan: * slow improvement * due to MERI * on bicarb fluids (1/2NS + 75MEQ sodium bicarbonate) * attempting to compensate with use oral bicarbonate as well * follow CO2 levels (5) UTI (urinary tract infection): Qualifiers: Hematuria presence: without hematuria Urinary tract infection type: acute cystitis Qualified Code(s): N30.00 - Acute cystitis without hematuria Code(s): N39.0 - Urinary tract infection, site not specified Status: Acute Assessment and Plan: * admission UA highly suggestive: * cloudy, 2+ protein, 3+ blood, 3+ leuks, greater than 100 RBC and WBC, 3+ bacteria, no epithelial cells, yeast present. * follow urine culture results * on antibiotics (6) Hydroureteronephrosis: Code(s): N13.30 - Unspecified hydronephrosis Status: Acute Assessment and Plan: * as noted by recent imaging studies * s/p cystoscopy, right retrograde pyelogram, right ureteral stent insertion (on 02/20) * right ureteral stent removal (on 03/09) * right ureteral stent replacement (on 03/10) as renal function acutely worsened after stent removal * Urology following (7) Anemia: Qualifiers: Anemia type: due to chronic kidney disease Chronic kidney disease stage: unspecified stage Qualified Code(s): N18.9 - Chronic kidney disease, unspecified; D63.1 - Anemia in chronic kidney disease Code(s): D64.9 - Anemia, unspecified Status: Chronic Assessment and Plan: * related to underlying CKD likely worsened by MERI * anemia studies with adequate iron stores * PRBC transfusion per protocol * Epogen while hospitalized * follow trend of H/H (8) Hypertension: Qualifiers: Hypertension type: primary hypertension Qualified Code(s): I10 - Essential (primary) hypertension Code(s): I10 - Essential (primary) hypertension Status: Chronic Assessment and Plan: * reasonable control at this time * holding ARB * follow trend of hemodynamics Will continue to follow. Subjective Date/time seen: 04/08/25 11:15 Interval history: Follow-up for acute kidney injury/acute renal failure on chronic kidney disease. Renal function/creatinine about the slightly worse in the 24 hours (7.31 --> 7.77mg/dl) with associated rise in BUN as well; potassium remains on the higher side of normal as well; despite his laboratory abnormalities, he seems to be feeling reasonably well; no apparent distress voiced at the time if my visit. Exam Narrative: General: elderly but WD/WN male in NAD Heart: normal S1 and S2; no rub Lungs: clear to auscultation Abdomen: soft, nontender, nondistended, positive bowel sounds Extremities: no cyanosis or clubbing; no edema Skin: warm and intact Objective Data Vital Signs Vital Signs: Vital Signs Temp Pulse Resp BP Pulse Ox O2 Del Method 04/08/25 11:00 74 04/08/25 09:05 72 146/67 H 98 04/08/25 08:00 Room Air 04/08/25 08:00 81 04/08/25 05:44 98.6 F 74 18 160/71 H 98 04/08/25 04:00 65 04/08/25 00:00 62 04/07/25 21:37 97.9 F 71 18 135/69 97 04/07/25 20:00 70 04/07/25 20:00 Room Air Intake/Output Intake/Output: Intake & Output 04/05/25 04/06/25 04/07/25 04/08/25 23:59 23:59 23:59 23:59 Intake Total 748 2725 3795 Output Total 2150 2950 400 Balance -1402 -225 3395 Meds/Results Medications: Active Medications Generic Name Dose Route Start Last Admin Trade Name Freq PRN Reason Stop Dose Admin Acetaminophen 650 mg 04/06/25 10:38 Acetaminophen 325 Mg Tablet PO Q4H PRN Mild Pain (1-3) or Fever Amlodipine Besylate 10 mg 04/07/25 09:00 04/08/25 09:06 Amlodipine Besylate 10 Mg Tablet PO 10 mg DAILY KIRSTEN Administration Ampicillin 500 mg 04/08/25 14:40 04/08/25 15:10 Ampicillin Trihydrate 500 Mg Capsule PO 500 mg Q12HR KIRSTEN Administration Atorvastatin Calcium 20 mg 04/06/25 13:35 04/08/25 09:06 Atorvastatin 20 Mg Tablet PO 20 mg DAILY KIRSTEN Administration Calcium Carbonate 500 mg 04/08/25 08:00 04/08/25 17:10 Calcium/Vitamin D 500 Mg/5 Mcg (200 I.U.) Tablet PO 500 mg BIDWM KIRSTEN Administration Cyanocobalamin 2,000 mcg 04/06/25 13:35 04/08/25 09:06 Cyanocobalamin 1,000 Mcg Tablet PO 2,000 mcg DAILY KIRSTEN Administration Dextrose 12.5 gm 04/06/25 13:14 Dextrose 50% 25 Gm/50 Ml Syringe IV PUSH PRN PRN Hypoglycemia Protocol Glucagon 1 mg 04/06/25 13:14 Glucagon For Inj 1 Mg Vial IM PRN PRN Hypoglycemia Protocol Glucose 15 gm 04/06/25 13:14 Glucose Oral Gel 15 Gm Of Glucse In 37.5 Gm Tube PO PRN PRN Hypoglycemia Protocol Cefepime HCl 1 gm in 50 mls @ 100 mls/hr 04/06/25 14:00 04/08/25 14:03 Maxipime 1 Gm/Ns 50 Ml IVPB 100 mls/hr Q24H KIRSTEN Administration Dextrose 1,000 mls @ 100 mls/hr 04/06/25 13:14 Dextrose 5% 1,000 Ml IVPB PRN PRN Hypoglycemia Protocol Sodium Bicarbonate 75 meq/ 1,075 mls @ 75 mls/hr 04/06/25 18:15 04/08/25 06:31 Sodium Chloride IV CONT 75 mls/hr .[id number] KIRSTEN Administration Irbesartan 75 mg 04/06/25 13:35 04/06/25 14:03 Irbesartan 75 Mg Tablet PO 75 mg DAILY KIRSTEN Administration Loperamide HCl 4 mg 04/06/25 17:00 04/08/25 17:10 Loperamide Hcl 2 Mg Capsule PO 4 mg BID KIRSTEN Administration Magnesium Chloride 64 mg 04/08/25 09:00 04/08/25 09:11 Magnesium Chloride 64 Mg Tablet PO 64 mg DAILY KIRSTEN Administration Methylprednisolone 4 mg 04/06/25 14:30 04/08/25 12:26 Methylprednisolone (Medrol) Dosepack 4 Mg Tablets PO 04/10/25 07:29 4 mg 0630,1200,2100 KIRSTEN Administration Taper Ondansetron HCl 4 mg 04/06/25 10:38 04/08/25 03:04 Ondansetron Inj 4 Mg/2 Ml Vial IV PUSH 4 mg Q4H PRN Administration Nausea Pantoprazole Sodium 40 mg 04/06/25 13:35 04/08/25 09:07 Pantoprazole 40 Mg Tablet PO 40 mg QAM KIRSTEN Administration Ropinirole HCl 3 mg 04/06/25 21:00 04/07/25 20:12 Ropinirole Hcl 1 Mg Tablet PO 3 mg HS KIRSTEN Administration Sitagliptin Phosphate 50 mg 04/06/25 13:35 04/08/25 09:07 Sitagliptin Phosphate 50 Mg Tablet PO 50 mg DAILY KIRSTEN Administration Sodium Bicarbonate 1,300 mg 04/07/25 09:00 04/08/25 17:10 Sodium Bicarbonate Tab 650 Mg Tablet PO 1,300 mg BID KIRSTEN Administration Sodium Zirconium Cyclosilicate 10 gm 04/07/25 10:00 04/08/25 10:09 Sodium Zirconium Cyclosilicate 10 Gm Powd.Pack PO 10 gm DAILY@1000 KIRSTEN Administration Vitamin D 1,000 units 04/06/25 13:35 04/08/25 09:06 Cholecalciferol 1,000 Units Tablet PO 1,000 units DAILY KIRSTEN Administration Radiology Results: ITS Impressions Chest X-Ray 04/06/25 09:42 IMPRESSION: No acute cardiopulmonary pathology. Abdomen/Pelvis CT 04/06/25 10:11 Impression: Moderate to advanced right hydroureteronephrosis is similar to prior exam, now with ureteral stent in place. 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 No discrete mass lesion evident. Appearance is similar to prior exam. Probable cystitis. Correlate with urinalysis. No significant abnormality in the chest. Labs Labs: Laboratory Results - last 24 hr 04/08/25 05:47 WBC 15.8 H Hgb 7.9 L Hct 25.7 L Plt Count 239 Sodium 136 L Potassium 5.5 H Chloride 107 Carbon Dioxide 15 L Anion Gap 14 H BUN 99 H D Creatinine 7.77 H Estim Creat Clear Calc 7 Estimated GFR 7 L Glucose 145 H Calcium 7.2 L Phosphorus 8.1 H Magnesium 1.0 L Albumin 3.4 L
[2025-04-08] MEDS: CEFEPIME 1 GM/NS 50 ML 1 GM/50 ML BAG IVPB (14:03)
[2025-04-08] MEDS: AMPICILLIN TRIHYDRATE 500 MG CAPSULE PO ×2 (15:10→21:09)
[2025-04-08] MEDS: MAGNESIUM SULF 1 GM/D5W 100 ML 1 GM/100 ML BAG IVPB (15:11)
[2025-04-08 17:32] LABS: Anion Gap 17 mmol/L (4-12); Blood Urea Nitrogen 105 mg/dL (9-20); Calcium 6.4 mg/dL (8.4-10.2); Carbon Dioxide 12 mmol/L (22-30); Chloride 100 mmol/L (98-107); Estimated CRCL calculation 6 ml/min; Estimated Glomerular Filt Rate 6; Glucose 187 mg/dL (65-110); Magnesium 1.2 mg/dL (1.6-2.3); Potassium 4.7 mmol/L (3.4-5.0); Sodium 129 mmol/L (137-145)
[2025-04-08] MEDS: SODIUM CHLORIDE 0.9% IV 1,000 ML 75 ML IV CONT (18:58)
[2025-04-08] MEDS: rOPINIRole HCL 1 MG TABLET 3 MG PO (21:09)
[2025-04-09] VITALS (9 sets, daily range): BP systolic 135–144; BP diastolic 59–68; PULSE 59–71; RESP 16; TEMP 36.4–36.9; O2SAT 95–97
--- NOTE | 2025-04-09 05:36 | PC.NURSE ---
Patient decreased urine output full of sediment. Appears thick, milky-yellow colored. 100cc of output overnight.
[2025-04-09] MEDS: methylPREDNISolone (MEDROL) DOSEPACK 4 MG TABLETS PO (06:03)
[2025-04-09 06:07] LABS: Basophils Percent Auto 0.1 % (0.2-1.2); Hematocrit 22.6 % (42.0-52.0); Immature Granulocyte Absolute 0.15 K/mm3 (0.00-0.031); Lymphocytes Absolute Auto 0.69 K/mm3 (0.9-3.2); Lymphocytes Percent Auto 4.8 % (18.3-44.2); Mean Corpuscular Hemoglobin 28.9 pg (26-34); Mean Corpuscular Volume 93.4 fl (80-100); Mean Platelet Volume 10.4 fl (7.4-10.4); Monocytes Absolute Auto 0.7 K/mm3 (0.1-0.6); Monocytes Percent Auto 5.1 % (2.6-8.5); Neutrophils Absolute Auto 12.8 K/mm3 (1.3-6.7); Platelet Count Result 189 k/mm3 (150-375); Red Blood Count 2.42 M/mm3 (4.6-6.20); Red Cell Distribution Width 14.6 % (11.5-14.5); White Blood Count 14.4 K/mm3 (4.5-10.0)
[2025-04-09 06:26] LABS: Albumin Level 2.8 g/dL (3.5-5.1); Anion Gap 18 mmol/L (4-12); Blood Urea Nitrogen 112 mg/dL (9-20); Calcium 6.7 mg/dL (8.4-10.2); Carbon Dioxide 12 mmol/L (22-30); Chloride 102 mmol/L (98-107); Estimated CRCL calculation 6 ml/min; Estimated Glomerular Filt Rate 6; Glucose 139 mg/dL (65-110); Phosphorus 9.1 mg/dL (2.5-4.5); Potassium 5.1 mmol/L (3.4-5.0); Sodium 132 mmol/L (137-145)
[2025-04-09 07:10] LABS: Magnesium 1.2 mg/dL (1.6-2.3)
--- NOTE | 2025-04-09 07:32 | P.PNIM_ITS ---
Progress Note: A&P Assessment and Plan (1) Acute on chronic kidney failure: Qualifiers: Acute renal failure type: unspecified Chronic kidney disease stage: unspecified stage Qualified Code(s): N17.9 - Acute kidney failure, unspecified; N18.9 - Chronic kidney disease, unspecified Code(s): N17.9 - Acute kidney failure, unspecified; N18.9 - Chronic kidney disease, unsp ecified Status: Acute Assessment and Plan: * 03/15: D/c'd with renal function of - 4.16, BUN 48, GFR 14. * 04/06: Renal function -10.98, BUN 99, GFR 5. * Previously, urology recommended long-term indwelling ureteral stent, this, in congruence w/ frequent UTIs and solitary kidney likely all contributing fact ors. * Follows with Dr. Olvin Dixon at [facility] for management of his CKD * Hyperkalemia and mild hypomagnesium presumed secondary to worsening renal function. * Nephrology and Urology consulted, appreciate recommendations * 04/09: Cr 9.19, BUN 112, GFR 6 * Etiology unclear, likely component of volume depletion, infection (UTI), ARB use, steroid use * Continue to follow creatinine trends * Patient on steroid taper for worsening arthritis hands after 3 week ciprofloxacin treatment * Will d/c Steroid taper * Renal ultrasound: Chronic moderate right hydronephrosis (2) Acute hyperkalemia: Code(s): E87.5 - Hyperkalemia Status: Resolved Assessment and Plan: * In ED: K 6.5 * Initial treatment with bicarb, Lokelma, calcium, insulin/dextrose and IV fluids. Repeat this evening. * Likely secondary to MERI/ARB use * Monitor * 04/09: K = 5.1 * Continue Lokelma, sodium bicarb, magnesium chloride, and calcium (3) Hypocalcemia: Code(s): E83.51 - Hypocalcemia Status: Acute Assessment and Plan: * In ED: Ca 8.3 * 04/09, Ca 6.7 * Receiving 500mg Ca Carbonate and 1000 units Vit D daily * Continue to monitor daily * Will add 1g Calcium Gluconate IV and continue daily PO intake (4) UTI (urinary tract infection): Qualifiers: Hematuria presence: without hematuria Urinary tract infection type: acute cystitis Qualified Code(s): N30.00 - Acute cystitis without hematuria Code(s): N39.0 - Urinary tract infection, site not specified Status: Acute Assessment and Plan: * UA: Cloudy, 2+ protein, 3+ blood, 3+ leuks, greater than 100 RBC and WBC, 3+ bacteria, no epithelial cells, yeast present. * UC pending, shows Enterococcus growth w/ susceptibility to Ampicillin * started on Ampicillin on 04/08 * antipyretics p.r.n., IV fluids (5) Metabolic acidosis: Code(s): E87.20 - Acidosis, unspecified Status: Acute Assessment and Plan: * CO2: 10 * Likely secondary to MERI * Will supplement with oral bicarbonate and 1/2 NS +75 mEq sodium bicarbonate IV fluids * Continue to monitor CO2 levels (6) Anemia: Qualifiers: Anemia type: due to chronic kidney disease Chronic kidney disease stage: unspecified stage Qualified Code(s): N18.9 - Chronic kidney disease, unspecified; D63.1 - Anemia in chronic kidney disease Code(s): D64.9 - Anemia, unspecified Status: Chronic Assessment and Plan: * Hgb 7.7 on admission, previously 8.8 on 03/14. Slightly decreased compared to baseline. * history of anemia, presumed secondary to chronic kidney disease/worsening renal function. * transfuse if <7 * trend H&H * 04/09: Hbg 7.0 * Nephro to add Protcrit (7) Hypertension: Qualifiers: Hypertension type: primary hypertension Qualified Code(s): I10 - Essential (primary) hypertension Code(s): I10 - Essential (primary) hypertension Status: Chronic Assessment and Plan: - chronic, currently 144/68 - continue home medications: Amlodipine, irbesartan - monitor (8) Prediabetes: Code(s): R73.03 - Prediabetes Status: Acute Assessment and Plan: - A1c 6.3% on 02/18/2025 - controlled with diet and Januvia. Continue Januvia. 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 04/09/2025 Pt sitting comfortably in bed. Denies any complaints or pain at this time. Leukocytosis improving. Urine culture showing Enterococcus growth w/ sensitivity to Ampicilln. Hgb 7.0, will need to keep close eye on H&H. Procrit has been added. Review of Systems Review of Systems: All systems reviewed & are unremarkable except as noted in HPI and below Exam Const: General: comfortable and no acute distress Other: , male, elderly, nontoxic appearance HENMT: Face/Nose/Sinus: Normal nares present Mouth: Yes moist mucous membranes Eyes: General: appearance normal, both eyes and all related structures Sclera: sclerae normal Pupils: Equal, round and reactive pupils present EOM: EOMs intact bilaterally Resp: Effort & Inspection: normal respiratory effort Auscultation: clear to auscultation bilaterally Cardio: Rate: regular rate Rhythm: regular rhythm Other: S1-S2 present without murmur, rub, ectopy GI: Other: Abdomen soft, nondistended, nontender. Normoactive bowel sounds in all quadrants. Skin: General skin exam: normal color and no rashes or lesions noted Wounds: no wounds Neuro: Cranial nerves: Yes Equal, round and reactive pupils present Speech: normal speech Motor exam (neuro): 5/5 motor strength present throughout Sensory Exam: normal sensation Other: A&O x4 Extrem: General: normal to inspection Psych: Mental Status: mental status grossly normal Affect: normal affect Other: Good insight and judgment, pleasant Objective Data Vital Signs Vital Signs: Vital Signs - 24 hr 04/08/25 08:00 04/08/25 08:00 04/08/25 09:05 Temperature Pulse Rate 81 72 Respiratory Rate Blood Pressure 146/67 H Pulse Oximetry 98 Oxygen Delivery Room Air 04/08/25 12:00 04/08/25 14:00 04/08/25 16:00 Temperature 98.8 F Pulse Rate 74 75 70 Respiratory Rate 18 Blood Pressure 137/62 Pulse Oximetry 96 Oxygen Delivery 04/08/25 20:00 04/08/25 20:00 04/08/25 21:08 Temperature 98.3 F Pulse Rate 63 63 63 Respiratory Rate 16 16 Blood Pressure 127/71 Pulse Oximetry 96 96 Oxygen Delivery Room Air 04/09/25 00:00 04/09/25 04:00 04/09/25 05:43 Temperature 98.5 F Pulse Rate 59 L 60 63 Respiratory Rate 16 Blood Pressure 144/68 H Pulse Oximetry 97 Oxygen Delivery Intake/Output Intake/Output: Intake & Output 04/06/25 04/07/25 04/08/25 04/09/25 23:59 23:59 23:59 23:59 Intake Total 748 2725 3795 200 Output Total 2150 2950 400 100 Balance -1402 -225 3395 100 Meds/Results Medications: Active Medications Generic Name Dose Route Start Last Admin Trade Name Freq PRN Reason Stop Dose Admin Acetaminophen 650 mg 04/06/25 10:38 Acetaminophen 325 Mg Tablet PO Q4H PRN Mild Pain (1-3) or Fever Amlodipine Besylate 10 mg 04/07/25 09:00 04/08/25 09:06 Amlodipine Besylate 10 Mg Tablet PO 10 mg DAILY KIRSTEN Administration Ampicillin 500 mg 04/08/25 14:40 04/08/25 21:09 Ampicillin Trihydrate 500 Mg Capsule PO 500 mg Q12HR KIRSTEN Administration Atorvastatin Calcium 20 mg 04/06/25 13:35 04/08/25 09:06 Atorvastatin 20 Mg Tablet PO 20 mg DAILY KIRSTEN Administration Calcium Carbonate 500 mg 04/08/25 08:00 04/08/25 17:10 Calcium/Vitamin D 500 Mg/5 Mcg (200 I.U.) Tablet PO 500 mg BIDWM KIRSTEN Administration Cyanocobalamin 2,000 mcg 04/06/25 13:35 04/08/25 09:06 Cyanocobalamin 1,000 Mcg Tablet PO 2,000 mcg DAILY KIRSTEN Administration Dextrose 12.5 gm 04/06/25 13:14 Dextrose 50% 25 Gm/50 Ml Syringe IV PUSH PRN PRN Hypoglycemia Protocol Glucagon 1 mg 04/06/25 13:14 Glucagon For Inj 1 Mg Vial IM PRN PRN Hypoglycemia Protocol Glucose 15 gm 04/06/25 13:14 Glucose Oral Gel 15 Gm Of Glucse In 37.5 Gm Tube PO PRN PRN Hypoglycemia Protocol Cefepime HCl 1 gm in 50 mls @ 100 mls/hr 04/06/25 14:00 04/08/25 14:03 Maxipime 1 Gm/Ns 50 Ml IVPB 100 mls/hr Q24H KIRSTEN Administration Dextrose 1,000 mls @ 100 mls/hr 04/06/25 13:14 Dextrose 5% 1,000 Ml IVPB PRN PRN Hypoglycemia Protocol Sodium Chloride 1,000 mls @ 75 mls/hr 04/08/25 18:55 04/08/25 18:58 Normal Saline Iv IV CONT 75 mls/hr .[id number] KIRSTEN Administration Calcium Gluconate 1,000 mg in 50 mls @ 100 mls/hr 04/09/25 07:30 Calcium Gluc 1,000 Mg/Ns 50 Ml IVPB 04/09/25 07:59 ONCE ONE Magnesium Sulfate 2 gm in 50 mls @ 25 mls/hr 04/09/25 07:30 Magnesium Sulf 2 Gm/Water 50ml IVPB 04/09/25 09:29 ONCE ONE Irbesartan 75 mg 04/06/25 13:35 04/06/25 14:03 Irbesartan 75 Mg Tablet PO 75 mg DAILY KIRSTEN Administration Loperamide HCl 4 mg 04/06/25 17:00 04/08/25 17:10 Loperamide Hcl 2 Mg Capsule PO 4 mg BID KIRSTEN Administration Magnesium Chloride 64 mg 04/08/25 09:00 04/08/25 09:11 Magnesium Chloride 64 Mg Tablet PO 64 mg DAILY KIRSTEN Administration Methylprednisolone 4 mg 04/06/25 14:30 04/09/25 06:03 Methylprednisolone (Medrol) Dosepack 4 Mg Tablets PO 04/10/25 07:29 4 mg 0630,2100 KIRSTEN Administration Taper Ondansetron HCl 4 mg 04/06/25 10:38 04/08/25 03:04 Ondansetron Inj 4 Mg/2 Ml Vial IV PUSH 4 mg Q4H PRN Administration Nausea Pantoprazole Sodium 40 mg 04/06/25 13:35 04/08/25 09:07 Pantoprazole 40 Mg Tablet PO 40 mg QAM KIRSTEN Administration Ropinirole HCl 3 mg 04/06/25 21:00 04/08/25 21:09 Ropinirole Hcl 1 Mg Tablet PO 3 mg HS KIRSTEN Administration Sevelamer Carbonate 800 mg 04/09/25 08:00 Sevelamer Carbonate 800 Mg Tablet PO TIDWM KIRSTEN Sitagliptin Phosphate 50 mg 04/06/25 13:35 04/08/25 09:07 Sitagliptin Phosphate 50 Mg Tablet PO 50 mg DAILY KIRSTEN Administration Sodium Bicarbonate 1,300 mg 04/09/25 09:00 Sodium Bicarbonate Tab 650 Mg Tablet PO TID KIRSTEN Sodium Zirconium Cyclosilicate 10 gm 04/07/25 10:00 04/08/25 10:09 Sodium Zirconium Cyclosilicate 10 Gm Powd.Pack PO 10 gm DAILY@1000 KIRSTEN Administration Vitamin D 1,000 units 04/06/25 13:35 04/08/25 09:06 Cholecalciferol 1,000 Units Tablet PO 1,000 units DAILY KIRSTEN Administration Radiology Results: ITS Impressions Chest X-Ray 04/06/25 09:42 IMPRESSION: No acute cardiopulmonary pathology. Abdomen/Pelvis CT 04/06/25 10:11 Impression: Moderate to advanced right hydroureteronephrosis is similar to prior exam, now with ureteral stent in place. 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 No discrete mass lesion evident. Appearance is similar to prior exam. Probable cystitis. Correlate with urinalysis. No significant abnormality in the chest. Labs Labs: Laboratory Results - last 24 hr 04/08/25 04/08/25 04/09/25 05:47 17:14 05:06 WBC RBC Hgb Hct MCV MCH MCHC RDW Plt Count MPV Immature Gran % (Auto) Neut % (Auto) Lymph % (Auto) [place] % (Auto) Eos % (Auto) Baso % (Auto) Lymph # (Auto) [place] # (Auto) Eos # (Auto) Baso # (Auto) Abs Immat Gran (auto) Absolute Neuts (auto) Absolute Nucleated RBC Nucleated RBC % Sodium 129 L Potassium 4.7 Chloride 100 Carbon Dioxide 12 L Anion Gap 17 H BUN 105 H Creatinine 8.33 H Estim Creat Clear Calc 6 Estimated GFR 6 L Glucose 187 H Calcium 6.4 L Phosphorus 8.0 H Magnesium 1.0 L 1.2 L 1.2 L Albumin 3.0 L 04/09/25 05:11 WBC 14.4 H RBC 2.42 L Hgb 7.0 L Hct 22.6 L MCV 93.4 MCH 28.9 MCHC 31.0 L RDW 14.6 H Plt Count 189 MPV 10.4 Immature Gran % (Auto) 1.0 H Neut % (Auto) 89.0 H Lymph % (Auto) 4.8 L [place] % (Auto) 5.1 Eos % (Auto) 0.0 Baso % (Auto) 0.1 L Lymph # (Auto) 0.69 L [place] # (Auto) 0.7 H Eos # (Auto) 0.0 Baso # (Auto) 0.0 Abs Immat Gran (auto) 0.15 H Absolute Neuts (auto) 12.8 H Absolute Nucleated RBC 0.000 Nucleated RBC % 0.0 Sodium 132 L Potassium 5.1 H Chloride 102 Carbon Dioxide 12 L Anion Gap 18 H BUN 112 H Creatinine 9.19 H Estim Creat Clear Calc 6 Estimated GFR 6 L Glucose 139 H Calcium 6.7 L Phosphorus 9.1 H Magnesium Albumin 2.8 L Quality VTE Prophylaxis VTE prophylaxis: mechanical ordered
[2025-04-09] MEDS: CALCIUM GLUC 1,000 MG/NS 50 ML 1,000 MG/50 ML BAG 100 MG IVPB (08:16)
[2025-04-09] MEDS: MAGNESIUM SULF 2 GM/WATER 50ML 2 GM/50 ML BAG IVPB (09:01)
[2025-04-09] MEDS: EPOETIN ALFA-EPBX 20,000 UNITS/ML VIAL 20000 UNITS SUB-Q (09:02)
[2025-04-09] MEDS: SODIUM BICARBONATE TAB 650 MG TABLET 1300 MG PO ×3 (09:02→16:51)
[2025-04-09] MEDS: amLODIPine BESYLATE 10 MG TABLET PO (09:03)
[2025-04-09] MEDS: PANTOPRAZOLE 40 MG TABLET PO (09:03)
[2025-04-09] MEDS: SITagliptin PHOSPHATE 50 MG TABLET PO (09:03)
[2025-04-09] MEDS: CHOLECALCIFEROL 1,000 UNITS TABLET 1000 UNITS PO (09:03)
[2025-04-09] MEDS: MAGNESIUM CHLORIDE 64 MG TABLET PO (09:03)
[2025-04-09] MEDS: ATORVASTATIN 20 MG TABLET PO (09:03)
[2025-04-09] MEDS: LOPERAMIDE HCL 2 MG CAPSULE 4 MG PO ×2 (09:03→16:51)
[2025-04-09] MEDS: AMPICILLIN TRIHYDRATE 500 MG CAPSULE PO ×2 (09:03→20:47)
[2025-04-09] MEDS: SEVELAMER CARBONATE 800 MG TABLET PO ×3 (09:03→16:52)
[2025-04-09] MEDS: CALCIUM/VITAMIN D 500 MG/5 MCG (200 I.U.) TABLET PO ×2 (09:03→16:52)
[2025-04-09] MEDS: CYANOCOBALAMIN 1,000 MCG TABLET 2000 MCG PO (09:03)
[2025-04-09] MEDS: SODIUM BICARBONATE 8.4% 75 MEQ in SODIUM CHLORIDE 0.45% 1,000 ML IV CONT (09:10)
--- NOTE | 2025-04-09 10:45 | WPDUROPN2 ---
Progress Note: A&P Assessment and Plan (1) Hydroureteronephrosis: Code(s): N13.30 - Unspecified hydronephrosis Status: Acute (2) Acute renal failure: Code(s): N17.9 - Acute kidney failure, unspecified Status: Acute Assessment and Plan: Diminished urine output and worsening serum creatinine today Renal ultrasound today to check for any issues with indwelling ureteral stent Subjective Subjective Date/Time Seen: 04/09/25 10:45 Interval history: Comfortable, no c/o - tolerating stent Review of Systems Review of Systems: All systems reviewed & are unremarkable except as noted in HPI and below Exam Const: General: no acute distress Resp: Effort & Inspection: normal respiratory effort GI: Inspection: non-distended GI Palp: No abdominal tenderness and No Guarding due to palpation present (GI) Auscultation: normal bowel sounds Objective Data Vital Signs Vital Signs: Vital Signs - 24 hr 04/08/25 12:00 04/08/25 14:00 04/08/25 16:00 Temperature 98.8 F Pulse Rate 74 75 70 Respiratory Rate 18 Blood Pressure 137/62 Pulse Oximetry 96 Oxygen Delivery 04/08/25 20:00 04/08/25 20:00 04/08/25 21:08 Temperature 98.3 F Pulse Rate 63 63 63 Respiratory Rate 16 16 Blood Pressure 127/71 Pulse Oximetry 96 96 Oxygen Delivery Room Air 04/09/25 00:00 04/09/25 04:00 04/09/25 05:43 Temperature 98.5 F Pulse Rate 59 L 60 63 Respiratory Rate 16 Blood Pressure 144/68 H Pulse Oximetry 97 Oxygen Delivery 04/09/25 08:00 04/09/25 08:00 Temperature Pulse Rate 64 Respiratory Rate Blood Pressure Pulse Oximetry Oxygen Delivery Room Air Intake/Output Intake/Output: Intake & Output 04/06/25 04/07/25 04/08/25 04/09/25 23:59 23:59 23:59 23:59 Intake Total 418 5205 3845 440 Output Total 2150 2950 400 100 Balance -1402 -225 3445 340 Meds/Results Medications: Active Medications Generic Name Dose Route Start Last Admin Trade Name Freq PRN Reason Stop Dose Admin Acetaminophen 650 mg 04/06/25 10:38 Acetaminophen 325 Mg Tablet PO Q4H PRN Mild Pain (1-3) or Fever Amlodipine Besylate 10 mg 04/07/25 09:00 04/09/25 09:03 Amlodipine Besylate 10 Mg Tablet PO 10 mg DAILY KIRSTEN Administration Ampicillin 500 mg 04/08/25 14:40 04/09/25 09:03 Ampicillin Trihydrate 500 Mg Capsule PO 500 mg Q12HR KIRSTEN Administration Atorvastatin Calcium 20 mg 04/06/25 13:35 04/09/25 09:03 Atorvastatin 20 Mg Tablet PO 20 mg DAILY KIRSTEN Administration Calcium Carbonate 500 mg 04/08/25 08:00 04/09/25 09:03 Calcium/Vitamin D 500 Mg/5 Mcg (200 I.U.) Tablet PO 500 mg BIDWM KIRSTEN Administration Cyanocobalamin 2,000 mcg 04/06/25 13:35 04/09/25 09:03 Cyanocobalamin 1,000 Mcg Tablet PO 2,000 mcg DAILY KIRSTEN Administration Dextrose 12.5 gm 04/06/25 13:14 Dextrose 50% 25 Gm/50 Ml Syringe IV PUSH PRN PRN Hypoglycemia Protocol Epoetin Adam-epbx 10,000 units 04/10/25 09:00 Epoetin Adam-Epbx 10,000 Units/Ml Vial SUB-Q MOWEFR@09 KIRSTEN Glucagon 1 mg 04/06/25 13:14 Glucagon For Inj 1 Mg Vial IM PRN PRN Hypoglycemia Protocol Glucose 15 gm 04/06/25 13:14 Glucose Oral Gel 15 Gm Of Glucse In 37.5 Gm Tube PO PRN PRN Hypoglycemia Protocol Cefepime HCl 1 gm in 50 mls @ 100 mls/hr 04/06/25 14:00 04/08/25 14:30 Maxipime 1 Gm/Ns 50 Ml IVPB Infused Q24H KIRSTEN Infusion Dextrose 1,000 mls @ 100 mls/hr 04/06/25 13:14 Dextrose 5% 1,000 Ml IVPB PRN PRN Hypoglycemia Protocol Sodium Bicarbonate 75 meq/ 1,075 mls @ 75 mls/hr 04/09/25 08:25 04/09/25 09:10 Sodium Chloride IV CONT 75 mls/hr .[id number] KIRSTEN Administration Irbesartan 75 mg 04/06/25 13:35 04/06/25 14:03 Irbesartan 75 Mg Tablet PO 75 mg DAILY KIRSTEN Administration Loperamide HCl 4 mg 04/06/25 17:00 04/09/25 09:03 Loperamide Hcl 2 Mg Capsule PO 4 mg BID KIRSTEN Administration Magnesium Chloride 64 mg 04/08/25 09:00 04/09/25 09:03 Magnesium Chloride 64 Mg Tablet PO 64 mg DAILY KIRSTEN Administration Ondansetron HCl 4 mg 04/06/25 10:38 04/08/25 03:04 Ondansetron Inj 4 Mg/2 Ml Vial IV PUSH 4 mg Q4H PRN Administration Nausea Pantoprazole Sodium 40 mg 04/06/25 13:35 04/09/25 09:03 Pantoprazole 40 Mg Tablet PO 40 mg QAM KIRSTEN Administration Ropinirole HCl 3 mg 04/06/25 21:00 04/08/25 21:09 Ropinirole Hcl 1 Mg Tablet PO 3 mg HS KIRSTEN Administration Sevelamer Carbonate 800 mg 04/09/25 08:00 04/09/25 09:03 Sevelamer Carbonate 800 Mg Tablet PO 800 mg TIDWM KIRSTEN Administration Sitagliptin Phosphate 50 mg 04/06/25 13:35 04/09/25 09:03 Sitagliptin Phosphate 50 Mg Tablet PO 50 mg DAILY KIRSTEN Administration Sodium Bicarbonate 1,300 mg 04/09/25 09:00 04/09/25 09:02 Sodium Bicarbonate Tab 650 Mg Tablet PO 1,300 mg TID KIRSTEN Administration Sodium Zirconium Cyclosilicate 10 gm 04/07/25 10:00 04/08/25 10:09 Sodium Zirconium Cyclosilicate 10 Gm Powd.Pack PO 10 gm DAILY@1000 KIRSTEN Administration Vitamin D 1,000 units 04/06/25 13:35 04/09/25 09:03 Cholecalciferol 1,000 Units Tablet PO 1,000 units DAILY KIRSTEN Administration Radiology Results: ITS Impressions Chest X-Ray 04/06/25 09:42 IMPRESSION: No acute cardiopulmonary pathology. Abdomen/Pelvis CT 04/06/25 10:11 Impression: Moderate to advanced right hydroureteronephrosis is similar to prior exam, now with ureteral stent in place. 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 No discrete mass lesion evident. Appearance is similar to prior exam. Probable cystitis. Correlate with urinalysis. No significant abnormality in the chest. Labs Labs: Laboratory Results - last 24 hr 05/10/25 05/11/25 05/11/25 17:14 05:06 05:11 WBC 14.4 H RBC 2.42 L Hgb 7.0 L Hct 22.6 L MCV 93.4 MCH 28.9 MCHC 31.0 L RDW 14.6 H Plt Count 189 MPV 10.4 Immature Gran % (Auto) 1.0 H Neut % (Auto) 89.0 H Lymph % (Auto) 4.8 L [place] % (Auto) 5.1 Eos % (Auto) 0.0 Baso % (Auto) 0.1 L Lymph # (Auto) 0.69 L [place] # (Auto) 0.7 H Eos # (Auto) 0.0 Baso # (Auto) 0.0 Abs Immat Gran (auto) 0.15 H Absolute Neuts (auto) 12.8 H Absolute Nucleated RBC 0.000 Nucleated RBC % 0.0 Sodium 129 L 132 L Potassium 4.7 5.1 H Chloride 100 102 Carbon Dioxide 12 L 12 L Anion Gap 17 H 18 H BUN 105 H 112 H Creatinine 8.33 H 9.19 H Estim Creat Clear Calc 6 6 Estimated GFR 6 L 6 L Glucose 187 H 139 H Calcium 6.4 L 6.7 L Phosphorus 8.0 H 9.1 H Magnesium 1.2 L 1.2 L Albumin 3.0 L 2.8 L
[2025-04-09] MEDS: SODIUM ZIRCONIUM CYCLOSILICATE 10 GM POWD.PACK PO (11:04)
--- NOTE | 2025-04-09 12:03 | P.PNNP_ITS ---
Progress Note: A&P Assessment and Plan (1) Acute kidney injury: Code(s): N17.9 - Acute kidney failure, unspecified Status: Acute Assessment and Plan: * had been improving but now with acute worsening noted since 04/08 * as noted by admission creatinine * records reviewed/noted: * creatinine did improve to 3.0mg/dl (on 03/09/25) * however, did worsen/rise given recent bacteremia/infection on February 2025 admission - discharge creatinine was 4.16mg/dl * creatinine on this admission - 10.98mg/dl * evaluation to date noted: * CT of A/P showed hydronephrosis (but ureteral stent in good position) * UA suggestive of infection * urine electrolytes non-prerenal * CPK normal/ow * moderate proteinuria * etiology not entirely clear... * element of volume depletion (given improvement with IVFs) * recurrent obstruction? * infection (possible UTI? -- had bacteremia on last hospitalization but this was appropriately treated...) * continued use of irbesartan therapy * other(?) * noted issues with hypocalcemia and hyperphosphatemia * low calcium probably due to bicarb gtt * elevated phos due to MERI - started on binders to compensate (hopefully a temporary measure) * check renal ultrasound as well as renal scan * follow trend of repeat labs and UOP (2) Chronic kidney disease, stage IV (severe): Code(s): N18.4 - Chronic kidney disease, stage 4 (severe) Status: Acute Assessment and Plan: * last creatinine was 2.35mg/dl in December 2024 * this places him around CKD stage 3b/stage 4 * likely a result of his nephrectomy, hypertension, vascular disease and age- related change * given recent hospitalization for obstruction and infection/bacteremia -- he may have a new baseline... * follows with Dr. Olvin Dixon at [facility] for management of his CKD (3) Hyperkalemia: Code(s): E87.5 - Hyperkalemia Status: Acute Assessment and Plan: * due to MERI and possibly ARB use * better but not optimal * on lokelma * follow trend of K+ level (4) Metabolic acidosis: Code(s): E87.20 - Acidosis, unspecified Status: Acute Assessment and Plan: * slow improvement * due to MERI * on bicarb fluids (1/2NS + 75MEQ sodium bicarbonate) * attempting to compensate with use oral bicarbonate as well * follow CO2 levels (5) UTI (urinary tract infection): Qualifiers: Hematuria presence: without hematuria Urinary tract infection type: a cute cystitis Qualified Code(s): N30.00 - Acute cystitis without hematuria Code(s): N39.0 - Urinary tract infection, site not specified Status: Acute Assessment and Plan: * admission UA highly suggestive: * cloudy, 2+ protein, 3+ blood, 3+ leuks, greater than 100 RBC and WBC, 3+ bacteria, no epithelial cells, yeast present. * urine culture with Enterobacter * on antibiotics (6) Hydroureteronephrosis: Code(s): N13.30 - Unspecified hydronephrosis Status: Acute Assessment and Plan: * as noted by recent imaging studies * s/p cystoscopy, right retrograde pyelogram, right ureteral stent insertion (on 02/20) * right ureteral stent removal (on 03/09) * right ureteral stent replacement (on 03/10) as renal function acutely worsened after stent removal * Urology following (7) Anemia: Qualifiers: Anemia type: due to chronic kidney disease Chronic kidney disease stage: unspecified stage Qualified Code(s): N18.9 - Chronic kidney disease, unspecified; D63.1 - Anemia in chronic kidney disease Code(s): D64.9 - Anemia, unspecified Status: Chronic Assessment and Plan: * related to underlying CKD likely worsened by MERI * anemia studies with adequate iron stores * PRBC transfusion per protocol * Epogen while hospitalized * follow trend of H/H (8) Hypertension: Qualifiers: Hypertension type: primary hypertension Qualified Code(s): I10 - Essential (primary) hypertension Code(s): I10 - Essential (primary) hypertension Status: Chronic Assessment and Plan: * reasonable control at this time * holding ARB * follow trend of hemodynamics Will continue to follow. L Subjective Date/time seen: 04/09/25 12:03 Interval history: Follow-up for acute kidney injury/acute renal failure on chronic kidney disease. Renal function/creatinine has worsened in association with acidosis and fluctuating potassium level in the last 24 - 48 hours despite all interventions/therapy to date; decline in urine output yesterday but seems better overnight/today; no apparent distress noted at the time of my visit; no events overnight or earlier this morning. Exam 2 Narrative: General: elderly but WD/WN male in NAD Heart: normal S1 and S2; no rub Lungs: clear to auscultation Abdomen: soft, nontender, nondistended, positive bowel sounds Extremities: no cyanosis or clubbing; no edema Skin: no rash Objective Data Vital Signs Vital Signs: Vital Signs Temp Pulse Resp BP Pulse Ox O2 Del Method 04/09/25 12:00 98.1 F 69 16 135/59 L 95 04/09/25 08:00 64 04/09/25 08:00 Room Air 04/09/25 05:43 98.5 F 63 16 144/68 H 97 04/09/25 04:00 60 04/09/25 00:00 59 L 04/08/25 21:08 98.3 F 63 16 127/71 96 04/08/25 20:00 63 04/08/25 20:00 63 16 96 Room Air 04/08/25 16:00 70 Intake/Output Intake/Output: Intake & Output 04/06/25 04/07/25 04/08/25 04/09/25 23:59 23:59 23:59 23:59 Intake Total 748 2725 3845 680 Output Total 2150 2950 400 1600 Balance -1402 -225 3445 -920 Meds/Results Medications: Active Medications Generic Name Dose Route Start Last Admin Trade Name Freq PRN Reason Stop Dose Admin Acetaminophen 650 mg 04/06/25 10:38 Acetaminophen 325 Mg Tablet PO Q4H PRN Mild Pain (1-3) or Fever Amlodipine Besylate 10 mg 04/07/25 09:00 04/09/25 09:03 Amlodipine Besylate 10 Mg Tablet PO 10 mg DAILY KIRSTEN Administration Ampicillin 500 mg 04/08/25 14:40 04/09/25 09:03 Ampicillin Trihydrate 500 Mg Capsule PO 500 mg Q12HR KIRSTEN Administration Atorvastatin Calcium 20 mg 04/06/25 13:35 04/09/25 09:03 Atorvastatin 20 Mg Tablet PO 20 mg DAILY KIRSTEN Administration Calcium Carbonate 500 mg 04/08/25 08:00 04/09/25 09:03 Calcium/Vitamin D 500 Mg/5 Mcg (200 I.U.) Tablet PO 500 mg BIDWM KIRSTEN Administration Cyanocobalamin 2,000 mcg 04/06/25 13:35 04/09/25 09:03 Cyanocobalamin 1,000 Mcg Tablet PO 2,000 mcg DAILY KIRSTEN Administration Dextrose 12.5 gm 04/06/25 13:14 Dextrose 50% 25 Gm/50 Ml Syringe IV PUSH PRN PRN Hypoglycemia Protocol Epoetin Adam-epbx 10,000 units 04/10/25 09:00 Epoetin Adam-Epbx 10,000 Units/Ml Vial SUB-Q MOWEFR@09 KIRSTEN Glucagon 1 mg 04/06/25 13:14 Glucagon For Inj 1 Mg Vial IM PRN PRN Hypoglycemia Protocol Glucose 15 gm 04/06/25 13:14 Glucose Oral Gel 15 Gm Of Glucse In 37.5 Gm Tube PO PRN PRN Hypoglycemia Protocol Cefepime HCl 1 gm in 50 mls @ 100 mls/hr 04/06/25 14:00 04/09/25 14:26 Maxipime 1 Gm/Ns 50 Ml IVPB 100 mls/hr Q24H KIRSTEN Administration Dextrose 1,000 mls @ 100 mls/hr 04/06/25 13:14 Dextrose 5% 1,000 Ml IVPB PRN PRN Hypoglycemia Protocol Sodium Bicarbonate 75 meq/ 1,075 mls @ 75 mls/hr 04/09/25 08:25 04/09/25 09:10 Sodium Chloride IV CONT 75 mls/hr .[id number] KIRSTEN Administration Irbesartan 75 mg 04/06/25 13:35 04/06/25 14:03 Irbesartan 75 Mg Tablet PO 75 mg DAILY KIRSTEN Administration Loperamide HCl 4 mg 04/06/25 17:00 04/09/25 09:03 Loperamide Hcl 2 Mg Capsule PO 4 mg BID KIRSTEN Administration Magnesium Chloride 64 mg 04/08/25 09:00 04/09/25 09:03 Magnesium Chloride 64 Mg Tablet PO 64 mg DAILY KIRSTEN Administration Ondansetron HCl 4 mg 04/06/25 10:38 04/08/25 03:04 Ondansetron Inj 4 Mg/2 Ml Vial IV PUSH 4 mg Q4H PRN Administration Nausea Pantoprazole Sodium 40 mg 04/06/25 13:35 04/09/25 09:03 Pantoprazole 40 Mg Tablet PO 40 mg QAM KIRSTEN Administration Ropinirole HCl 3 mg 04/06/25 21:00 04/08/25 21:09 Ropinirole Hcl 1 Mg Tablet PO 3 mg HS KIRSTEN Administration Sevelamer Carbonate 800 mg 04/09/25 08:00 04/09/25 11:05 Sevelamer Carbonate 800 Mg Tablet PO 800 mg TIDWM KIRSTEN Administration Sitagliptin Phosphate 50 mg 04/06/25 13:35 04/09/25 09:03 Sitagliptin Phosphate 50 Mg Tablet PO 50 mg DAILY KIRSTEN Administration Sodium Bicarbonate 1,300 mg 04/09/25 09:00 04/09/25 12:27 Sodium Bicarbonate Tab 650 Mg Tablet PO 1,300 mg TID KIRSTEN Administration Sodium Zirconium Cyclosilicate 10 gm 04/07/25 10:00 04/09/25 11:04 Sodium Zirconium Cyclosilicate 10 Gm Powd.Pack PO 10 gm DAILY@1000 KIRSTEN Administration Vitamin D 1,000 units 04/06/25 13:35 04/09/25 09:03 Cholecalciferol 1,000 Units Tablet PO 1,000 units DAILY KIRSTEN Administration Radiology Results: ITS Impressions Chest X-Ray 04/06/25 09:42 IMPRESSION: No acute cardiopulmonary pathology. Abdomen/Pelvis CT 04/06/25 10:11 Impression: Moderate to advanced right hydroureteronephrosis is similar to prior exam, now with ureteral stent in place. 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 No discrete mass lesion evident. Appearance is similar to prior exam. Probable cystitis. Correlate with urinalysis. No significant abnormality in the chest. Labs Labs: Laboratory Tests 04/09/25 05:11 04/09/25 05:11 Calcium 6.7 L Phosphorus 9.1 H Albumin 2.8 L 04/06/25 04/06/25 04/06/25 04/07/25 04/07/25 04/08/25 04/08/25 09:31 14:53 20:27 05:06 16:40 05:47 17:24 Creatinine 10.98 H 10.04 H 9.47 H 8.43 H 7.31 H 7.77 H 8.33 H Microbiology 04/06/25 09:49 Unspecified Urine Urine Culture - Final Enterococcus species
[2025-04-09] MEDS: CEFEPIME 1 GM/NS 50 ML 1 GM/50 ML BAG IVPB (14:26)
[2025-04-09] MEDS: rOPINIRole HCL 1 MG TABLET 3 MG PO (20:47)
[2025-04-10] VITALS (8 sets, daily range): BP systolic 134–153; BP diastolic 64–74; PULSE 62–90; RESP 16–18; TEMP 36–37; O2SAT 96–99
[2025-04-10] MEDS: SODIUM BICARBONATE 8.4% 75 MEQ in SODIUM CHLORIDE 0.45% 1,000 ML IV CONT ×2 (02:20→17:48)
[2025-04-10 05:22] LABS: Basophils Percent Auto 0.1 % (0.2-1.2); Eosinophils Absolute Auto 0.1 K/mm3 (0-0.3); Eosinophils Percent Auto 0.6 % (0-4.4); Hematocrit 23.8 % (42.0-52.0); Hemoglobin 7.7 g/dL (14.0-18.0); Immature Granulocyte Absolute 0.21 K/mm3 (0.00-0.031); Immature Granulocyte Percent A 1.8 % (0-0.5); Lymphocytes Absolute Auto 0.79 K/mm3 (0.9-3.2); Lymphocytes Percent Auto 6.6 % (18.3-44.2); Mean Corpuscular HGB Conc 32.4 g/dl (32-36); Mean Corpuscular Hemoglobin 28.7 pg (26-34); Mean Corpuscular Volume 88.8 fl (80-100); Mean Platelet Volume 9.4 fl (7.4-10.4); Monocytes Absolute Auto 0.6 K/mm3 (0.1-0.6); Monocytes Percent Auto 5.4 % (2.6-8.5); Neutrophils Absolute Auto 10.2 K/mm3 (1.3-6.7); Neutrophils Percent Auto 85.5 % (45.5-73.1); Platelet Count Result 188 k/mm3 (150-375); Red Blood Count 2.68 M/mm3 (4.6-6.20); Red Cell Distribution Width 14.2 % (11.5-14.5); White Blood Count 11.9 K/mm3 (4.5-10.0)
[2025-04-10 05:37] LABS: Anion Gap 16 mmol/L (4-12); Blood Urea Nitrogen 107 mg/dL (9-20); Calcium 7.6 mg/dL (8.4-10.2); Carbon Dioxide 17 mmol/L (22-30); Chloride 102 mmol/L (98-107); Estimated CRCL calculation 7 ml/min; Estimated Glomerular Filt Rate 7; Glucose 118 mg/dL (65-110); Phosphorus 8.1 mg/dL (2.5-4.5); Potassium 4.1 mmol/L (3.4-5.0); Sodium 135 mmol/L (137-145)
--- NOTE | 2025-04-10 06:16 | P.PNUR_ITS ---
Progress Note: A&P Assessment and Plan (1) History of left nephrectomy: Code(s): Z90.5 - Acquired absence of kidney Status: Acute (2) Acute renal failure: Code(s): N17.9 - Acute kidney failure, unspecified Status: Acute Assessment and Plan: * Urine output has improved dramatically over the past 24 hours, as his his serum creatinine. Difficult to explant other possible slight urinary tract infection being adequately covered by initial admitting antibiotics * Repeat renal ultrasound shows chronic right hydronephrosis that appears unchanged. His right ureteral stent is position. This hydronephrosis likely represents a nonobstructed distension due to chronic overdistention. Given appropriate positioning of his stent and good urine output I believe the stent is functioning appropriately Subjective Subjective Date/Time Seen: 04/10/25 06:16 Interval history: Comfortable, no complaints Review of Systems Review of Systems: All systems reviewed & are unremarkable except as noted in HPI and below Exam Const: General: no acute distress Resp: Effort & Inspection: normal respiratory effort GI: Inspection: non-distended GI Palp: No abdominal tenderness and No Guarding due to palpation present (GI) Auscultation: normal bowel sounds Objective Data Vital Signs Vital Signs: Vital Signs - 24 hr 04/09/25 08:00 04/09/25 08:00 04/09/25 12:00 Temperature Pulse Rate 64 67 Respiratory Rate Blood Pressure Pulse Oximetry Oxygen Delivery Room Air 04/09/25 14:00 04/09/25 16:00 04/09/25 20:00 Temperature 98.1 F Pulse Rate 69 71 68 Respiratory Rate 16 16 Blood Pressure 135/59 L Pulse Oximetry 95 95 Oxygen Delivery Room Air 04/09/25 20:00 04/09/25 20:19 04/10/25 00:00 Temperature 97.6 F Pulse Rate 69 68 69 Respiratory Rate 16 Blood Pressure 143/62 H Pulse Oximetry 95 Oxygen Delivery 04/10/25 04:00 04/10/25 05:40 Temperature 96.8 F L Pulse Rate 68 66 Respiratory Rate 17 Blood Pressure 153/64 H Pulse Oximetry 96 Oxygen Delivery Intake/Output Intake/Output: Intake & Output 04/07/25 04/08/25 04/09/25 04/10/25 23:59 23:59 23:59 23:59 Intake Total 2725 4920 3095 Output Total 2950 400 4200 1600 Balance -225 4520 -1105 -1600 Meds/Results Medications: Active Medications Generic Name Dose Route Start Last Admin Trade Name Freq PRN Reason Stop Dose Admin Acetaminophen 650 mg 04/06/25 10:38 Acetaminophen 325 Mg Tablet PO Q4H PRN Mild Pain (1-3) or Fever Amlodipine Besylate 10 mg 04/07/25 09:00 04/09/25 09:03 Amlodipine Besylate 10 Mg Tablet PO 10 mg DAILY KIRSTEN Administration Ampicillin 500 mg 04/08/25 14:40 04/09/25 20:47 Ampicillin Trihydrate 500 Mg Capsule PO 500 mg Q12HR KIRSTEN Administration Atorvastatin Calcium 20 mg 04/06/25 13:35 04/09/25 09:03 Atorvastatin 20 Mg Tablet PO 20 mg DAILY KIRSTEN Administration Calcium Carbonate 500 mg 04/08/25 08:00 04/09/25 16:52 Calcium/Vitamin D 500 Mg/5 Mcg (200 I.U.) Tablet PO 500 mg BIDWM KIRSTEN Administration Cyanocobalamin 2,000 mcg 04/06/25 13:35 04/09/25 09:03 Cyanocobalamin 1,000 Mcg Tablet PO 2,000 mcg DAILY KIRSTEN Administration Dextrose 12.5 gm 04/06/25 13:14 Dextrose 50% 25 Gm/50 Ml Syringe IV PUSH PRN PRN Hypoglycemia Protocol Epoetin Adam-epbx 10,000 units 04/10/25 09:00 Epoetin Adam-Epbx 10,000 Units/Ml Vial SUB-Q MOWEFR@09 KIRSTEN Glucagon 1 mg 04/06/25 13:14 Glucagon For Inj 1 Mg Vial IM PRN PRN Hypoglycemia Protocol Glucose 15 gm 04/06/25 13:14 Glucose Oral Gel 15 Gm Of Glucse In 37.5 Gm Tube PO PRN PRN Hypoglycemia Protocol Cefepime HCl 1 gm in 50 mls @ 100 mls/hr 04/06/25 14:00 04/09/25 14:26 Maxipime 1 Gm/Ns 50 Ml IVPB 100 mls/hr Q24H KIRSTEN Administration Dextrose 1,000 mls @ 100 mls/hr 04/06/25 13:14 Dextrose 5% 1,000 Ml IVPB PRN PRN Hypoglycemia Protocol Sodium Bicarbonate 75 meq/ 1,075 mls @ 75 mls/hr 04/09/25 08:25 04/10/25 04:29 Sodium Chloride IV CONT Not Given .[id number] KIRSTEN Irbesartan 75 mg 04/06/25 13:35 04/06/25 14:03 Irbesartan 75 Mg Tablet PO 75 mg DAILY KIRSTEN Administration Loperamide HCl 4 mg 04/06/25 17:00 04/09/25 16:51 Loperamide Hcl 2 Mg Capsule PO 4 mg BID KIRSTEN Administration Magnesium Chloride 64 mg 04/08/25 09:00 04/09/25 09:03 Magnesium Chloride 64 Mg Tablet PO 64 mg DAILY KIRSTEN Administration Ondansetron HCl 4 mg 04/06/25 10:38 04/08/25 03:04 Ondansetron Inj 4 Mg/2 Ml Vial IV PUSH 4 mg Q4H PRN Administration Nausea Pantoprazole Sodium 40 mg 04/06/25 13:35 04/09/25 09:03 Pantoprazole 40 Mg Tablet PO 40 mg QAM KIRSTEN Administration Ropinirole HCl 3 mg 04/06/25 21:00 04/09/25 20:47 Ropinirole Hcl 1 Mg Tablet PO 3 mg HS KIRSTEN Administration Sevelamer Carbonate 800 mg 04/09/25 08:00 04/09/25 16:52 Sevelamer Carbonate 800 Mg Tablet PO 800 mg TIDWM KIRSTEN Administration Sitagliptin Phosphate 50 mg 04/06/25 13:35 04/09/25 09:03 Sitagliptin Phosphate 50 Mg Tablet PO 50 mg DAILY KIRSTEN Administration Sodium Bicarbonate 1,300 mg 04/09/25 09:00 04/09/25 16:51 Sodium Bicarbonate Tab 650 Mg Tablet PO 1,300 mg TID KIRSTEN Administration Sodium Zirconium Cyclosilicate 10 gm 04/07/25 10:00 04/09/25 11:04 Sodium Zirconium Cyclosilicate 10 Gm Powd.Pack PO 10 gm DAILY@1000 KIRSTEN Administration Vitamin D 1,000 units 04/06/25 13:35 04/09/25 09:03 Cholecalciferol 1,000 Units Tablet PO 1,000 units DAILY KIRSTEN Administration Radiology Results: ITS Impressions Chest X-Ray 04/06/25 09:42 IMPRESSION: No acute cardiopulmonary pathology. Abdomen/Pelvis CT 04/06/25 10:11 Impression: Moderate to advanced right hydroureteronephrosis is similar to prior exam, now with ureteral stent in place. 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 No discrete mass lesion evident. Appearance is similar to prior exam. Probable cystitis. Correlate with urinalysis. No significant abnormality in the chest. Renal Ultrasound 04/09/25 12:06 Impression: 1: Chronic moderate right hydronephrosis. Labs Labs: Laboratory Results - last 24 hr 04/09/25 04/09/25 04/10/25 05:06 05:11 05:13 WBC 14.4 H 11.9 H RBC 2.42 L 2.68 L Hgb 7.0 L 7.7 L Hct 22.6 L 23.8 L MCV 93.4 88.8 MCH 28.9 28.7 MCHC 31.0 L 32.4 RDW 14.6 H 14.2 Plt Count 189 188 MPV 10.4 9.4 Immature Gran % (Auto) 1.0 H 1.8 H Neut % (Auto) 89.0 H 85.5 H Lymph % (Auto) 4.8 L 6.6 L [place] % (Auto) 5.1 5.4 Eos % (Auto) 0.0 0.6 Baso % (Auto) 0.1 L 0.1 L Lymph # (Auto) 0.69 L 0.79 L [place] # (Auto) 0.7 H 0.6 Eos # (Auto) 0.0 0.1 Baso # (Auto) 0.0 0.0 Abs Immat Gran (auto) 0.15 H 0.21 H Absolute Neuts (auto) 12.8 H 10.2 H Absolute Nucleated RBC 0.000 0.000 Nucleated RBC % 0.0 0.0 Sodium 132 L 135 L Potassium 5.1 H 4.1 Chloride 102 102 Carbon Dioxide 12 L 17 L Anion Gap 18 H 16 H BUN 112 H 107 H Creatinine 9.19 H 7.81 H Estim Creat Clear Calc 6 7 Estimated GFR 6 L 7 L Glucose 139 H 118 H Calcium 6.7 L 7.6 L Phosphorus 9.1 H 8.1 H Magnesium 1.2 L Albumin 2.8 L 3.0 L
--- NOTE | 2025-04-10 07:34 | P.PNIM_ITS ---
Progress Note: A&P Assessment and Plan (1) Acute on chronic kidney failure: Qualifiers: Acute renal failure type: unspecified Chronic kidney disease stage: unspecified stage Qualified Code(s): N17.9 - Acute kidney failure, unspecified; N18.9 - Chronic kidney disease, unspecified Code(s): N17.9 - Acute kidney failure, unspecified; N18.9 - Chronic kidney disease, unsp ecified Status: Acute Assessment and Plan: * 03/15: D/c'd with renal function of - 4.16, BUN 48, GFR 14. * 04/06: Renal function -10.98, BUN 99, GFR 5. * Previously, urology recommended long-term indwelling ureteral stent, this, in congruence w/ frequent UTIs and solitary kidney likely all contributing fact ors. * Follows with Dr. Olvin Dixon at [facility] for management of his CKD * Hyperkalemia and mild hypomagnesium presumed secondary to worsening renal function. * Nephrology and Urology consulted, appreciate recommendations * Etiology unclear, likely component of volume depletion, infection (UTI), ARB use, steroid use * Renal ultrasound: Chronic moderate right hydronephrosis * Renal scan nuclear medicine:Markedly delayed time to peak activity in the right kidney which could be due to high-grade obstruction with moderate right hydronephrosis despite the presence of an internal ureteral stent on recent prior CT versus severe nonspecific nephropathy of other indeterminate etiology. * 04/10: Cr improving, down from 9.19 -> 7.81. BUN down from 112 -> 107 * Spoke with Dr. Magaña, if creatinine continues to improve tomorrow, likely discharge (2) Acute hyperkalemia: Code(s): E87.5 - Hyperkalemia Status: Resolved Assessment and Plan: * In ED: K 6.5 * Initial treatment with bicarb, Lokelma, calcium, insulin/dextrose and IV fluids. Repeat this evening. * Likely secondary to MERI/ARB use * Monitor * 04/10: K = 4.1 * Continue Lokelma, sodium bicarb, magnesium chloride, and calcium (3) Hypocalcemia: Code(s): E83.51 - Hypocalcemia Status: Acute Assessment and Plan: * In ED: Ca 8.3 * 04/09, Ca 6.7 * Receiving 500mg Ca Carbonate and 1000 units Vit D daily * Continue to monitor daily * Will add 1g Calcium Gluconate IV and continue daily PO intake (4) UTI (urinary tract infection): Qualifiers: Hematuria presence: without hematuria Urinary tract infection type: acute cystitis Qualified Code(s): N30.00 - Acute cystitis without hematuria Code(s): N39.0 - Urinary tract infection, site not specified Status: Acute Assessment and Plan: * UA: Cloudy, 2+ protein, 3+ blood, 3+ leuks, greater than 100 RBC and WBC, 3+ bacteria, no epithelial cells, yeast present. * UC pending, shows Enterococcus growth w/ susceptibility to Ampicillin * started on Ampicillin on 04/08 * antipyretics p.r.n., IV fluids (5) Metabolic acidosis: Code(s): E87.20 - Acidosis, unspecified Status: Acute Assessment and Plan: * CO2: 10 * Likely secondary to MERI * Will supplement with oral bicarbonate and 1/2 NS +75 mEq sodium bicarbonate IV fluids * Continue to monitor CO2 levels (6) Anemia: Qualifiers: Anemia type: due to chronic kidney disease Chronic kidney disease stage: unspecified stage Qualified Code(s): N18.9 - Chronic kidney disease, unspecified; D63.1 - Anemia in chronic kidney disease Code(s): D64.9 - Anemia, unspecified Status: Chronic Assessment and Plan: * Hgb 7.7 on admission, previously 8.8 on 03/14. Slightly decreased compared to baseline. * history of anemia, presumed secondary to chronic kidney disease/worsening renal function. * transfuse if <7 * trend H&H * 04/09: Hbg 7.0 * Nephro to add Protcrit (7) Hypertension: Qualifiers: Hypertension type: primary hypertension Qualified Code(s): I10 - Essential (primary) hypertension Code(s): I10 - Essential (primary) hypertension Status: Chronic Assessment and Plan: - chronic, currently 144/68 - continue home medications: Amlodipine, irbesartan - monitor (8) Prediabetes: Code(s): R73.03 - Prediabetes Status: Acute Assessment and Plan: - A1c 6.3% on 02/18/2025 - controlled with diet and Januvia. Continue Januvia. - hypoglycemia protocol ordered Plan Diet: NPO GI Prophylaxis: Not currently indicated DVT Prophylaxis: SCDs IV fluids: NS at 125 mL/hour Code Status: Full code Subjective Date/time seen: 04/10/25 07:34 Interval history: 74 y/o M with PMH of CKD, carcinoma of colorectal region (s/p radiation, total colectomy, and partial small-bowel resection), HTN, RLS, HLD, Crohn's disease, kidney stones, nephrectomy (left, 2012), 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 04/10/2025 Patient examined sitting in bed at time examination. He continues to be in high spirits and denies any pain or complaints whatsoever at this time. Following this patient closely with Nephrology. For the past several days, patient's urinary output has been minimal but over the past 24 hours, there appears to be a large amount of urinary output and significant improvement in kidney function on lab for blood work. If creatinine continues to improve until tomorrow, likely can be discharged home. Renal scan was performed and showed delayed time to peak activity in right kidney which could be secondary to high-grade obstruction with moderate right hydronephrosis despite presence of ureteral stent, renal ultrasound showed chronic moderate right hydronephrosis. Urinary output continues to be adequate throughout today. Review of Systems Review of Systems: All systems reviewed & are unremarkable except as noted in HPI and below Exam Const: General: comfortable and no acute distress Other: , male, elderly, nontoxic appearance HENMT: Face/Nose/Sinus: Normal nares present Mouth: Yes moist mucous membranes Eyes: General: appearance normal, both eyes and all related structures Sclera: sclerae normal Pupils: Equal, round and reactive pupils present EOM: EOMs intact bilaterally Resp: Effort & Inspection: normal respiratory effort Auscultation: clear to auscultation bilaterally Cardio: Rate: regular rate Rhythm: regular rhythm Other: S1-S2 present without murmur, rub, ectopy GI: Other: Abdomen soft, nondistended, nontender. Normoactive bowel sounds in all quadrants. Skin: General skin exam: normal color and no rashes or lesions noted Wounds: no wounds Neuro: Cranial nerves: Yes Equal, round and reactive pupils present Speech: normal speech Motor exam (neuro): 5/5 motor strength present throughout Sensory Exam: normal sensation Other: A&O x4 Extrem: General: normal to inspection Psych: Mental Status: mental status grossly normal Affect: normal affect Other: Good insight and judgment, pleasant Objective Data Vital Signs Vital Signs: Vital Signs - 24 hr 04/09/25 08:00 04/09/25 08:00 04/09/25 12:00 Temperature Pulse Rate 64 67 Respiratory Rate Blood Pressure Pulse Oximetry Oxygen Delivery Room Air 04/09/25 14:00 04/09/25 16:00 04/09/25 20:00 Temperature 98.1 F Pulse Rate 69 71 68 Respiratory Rate 16 16 Blood Pressure 135/59 L Pulse Oximetry 95 95 Oxygen Delivery Room Air 04/09/25 20:00 04/09/25 20:19 04/10/25 00:00 Temperature 97.6 F Pulse Rate 69 68 69 Respiratory Rate 16 Blood Pressure 143/62 H Pulse Oximetry 95 Oxygen Delivery 04/10/25 04:00 04/10/25 05:40 Temperature 96.8 F L Pulse Rate 68 66 Respiratory Rate 17 Blood Pressure 153/64 H Pulse Oximetry 96 Oxygen Delivery Intake/Output Intake/Output: Intake & Output 04/07/25 04/08/25 04/09/25 04/10/25 23:59 23:59 23:59 23:59 Intake Total 2725 4920 3095 Output Total 2950 400 4200 1600 Balance -225 0041 -1100 -1600 Meds/Results Medications: Active Medications Generic Name Dose Route Start Last Admin Trade Name Freq PRN Reason Stop Dose Admin Acetaminophen 650 mg 04/06/25 10:38 Acetaminophen 325 Mg Tablet PO Q4H PRN Mild Pain (1-3) or Fever Amlodipine Besylate 10 mg 04/07/25 09:00 04/09/25 09:03 Amlodipine Besylate 10 Mg Tablet PO 10 mg DAILY KIRSTEN Administration Ampicillin 500 mg 04/08/25 14:40 04/09/25 20:47 Ampicillin Trihydrate 500 Mg Capsule PO 500 mg Q12HR KIRSTEN Administration Atorvastatin Calcium 20 mg 04/06/25 13:35 04/09/25 09:03 Atorvastatin 20 Mg Tablet PO 20 mg DAILY KIRSTEN Administration Calcium Carbonate 500 mg 04/08/25 08:00 04/09/25 16:52 Calcium/Vitamin D 500 Mg/5 Mcg (200 I.U.) Tablet PO 500 mg BIDWM KIRSTEN Administration Cyanocobalamin 2,000 mcg 04/06/25 13:35 04/09/25 09:03 Cyanocobalamin 1,000 Mcg Tablet PO 2,000 mcg DAILY KIRSTEN Administration Dextrose 12.5 gm 04/06/25 13:14 Dextrose 50% 25 Gm/50 Ml Syringe IV PUSH PRN PRN Hypoglycemia Protocol Epoetin Adam-epbx 10,000 units 04/10/25 09:00 Epoetin Adam-Epbx 10,000 Units/Ml Vial SUB-Q MOWEFR@09 KIRSTEN Glucagon 1 mg 04/06/25 13:14 Glucagon For Inj 1 Mg Vial IM PRN PRN Hypoglycemia Protocol Glucose 15 gm 04/06/25 13:14 Glucose Oral Gel 15 Gm Of Glucse In 37.5 Gm Tube PO PRN PRN Hypoglycemia Protocol Cefepime HCl 1 gm in 50 mls @ 100 mls/hr 04/06/25 14:00 04/09/25 14:26 Maxipime 1 Gm/Ns 50 Ml IVPB 100 mls/hr Q24H KIRSTEN Administration Dextrose 1,000 mls @ 100 mls/hr 04/06/25 13:14 Dextrose 5% 1,000 Ml IVPB PRN PRN Hypoglycemia Protocol Sodium Bicarbonate 75 meq/ 1,075 mls @ 75 mls/hr 04/09/25 08:25 04/10/25 04:29 Sodium Chloride IV CONT Not Given .[id number] KIRSTEN Irbesartan 75 mg 04/06/25 13:35 04/06/25 14:03 Irbesartan 75 Mg Tablet PO 75 mg DAILY KIRSTEN Administration Loperamide HCl 4 mg 04/06/25 17:00 04/09/25 16:51 Loperamide Hcl 2 Mg Capsule PO 4 mg BID KIRSTEN Administration Magnesium Chloride 64 mg 04/08/25 09:00 04/09/25 09:03 Magnesium Chloride 64 Mg Tablet PO 64 mg DAILY KIRSTEN Administration Ondansetron HCl 4 mg 04/06/25 10:38 04/08/25 03:04 Ondansetron Inj 4 Mg/2 Ml Vial IV PUSH 4 mg Q4H PRN Administration Nausea Pantoprazole Sodium 40 mg 04/06/25 13:35 04/09/25 09:03 Pantoprazole 40 Mg Tablet PO 40 mg QAM KIRSTEN Administration Ropinirole HCl 3 mg 04/06/25 21:00 04/09/25 20:47 Ropinirole Hcl 1 Mg Tablet PO 3 mg HS KIRSTEN Administration Sevelamer Carbonate 800 mg 04/09/25 08:00 04/09/25 16:52 Sevelamer Carbonate 800 Mg Tablet PO 800 mg TIDWM KIRSTEN Administration Sitagliptin Phosphate 50 mg 04/06/25 13:35 04/09/25 09:03 Sitagliptin Phosphate 50 Mg Tablet PO 50 mg DAILY KIRSTEN Administration Sodium Bicarbonate 1,300 mg 04/09/25 09:00 04/09/25 16:51 Sodium Bicarbonate Tab 650 Mg Tablet PO 1,300 mg TID KIRSTEN Administration Sodium Zirconium Cyclosilicate 10 gm 04/07/25 10:00 04/09/25 11:04 Sodium Zirconium Cyclosilicate 10 Gm Powd.Pack PO 10 gm DAILY@1000 KIRSTEN Administration Vitamin D 1,000 units 04/06/25 13:35 04/09/25 09:03 Cholecalciferol 1,000 Units Tablet PO 1,000 units DAILY KIRSTEN Administration Radiology Results: ITS Impressions Chest X-Ray 04/06/25 09:42 IMPRESSION: No acute cardiopulmonary pathology. Abdomen/Pelvis CT 04/06/25 10:11 Impression: Moderate to advanced right hydroureteronephrosis is similar to prior exam, now with ureteral stent in place. 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 No discrete mass lesion evident. Appearance is similar to prior exam. Probable cystitis. Correlate with urinalysis. No significant abnormality in the chest. Renal Ultrasound 04/09/25 12:06 Impression: 1: Chronic moderate right hydronephrosis. Labs Labs: Laboratory Results - last 24 hr 04/10/25 05:13 WBC 11.9 H RBC 2.68 L Hgb 7.7 L Hct 23.8 L MCV 88.8 MCH 28.7 MCHC 32.4 RDW 14.2 Plt Count 188 MPV 9.4 Immature Gran % (Auto) 1.8 H Neut % (Auto) 85.5 H Lymph % (Auto) 6.6 L [place] % (Auto) 5.4 Eos % (Auto) 0.6 Baso % (Auto) 0.1 L Lymph # (Auto) 0.79 L [place] # (Auto) 0.6 Eos # (Auto) 0.1 Baso # (Auto) 0.0 Abs Immat Gran (auto) 0.21 H Absolute Neuts (auto) 10.2 H Absolute Nucleated RBC 0.000 Nucleated RBC % 0.0 Sodium 135 L Potassium 4.1 Chloride 102 Carbon Dioxide 17 L Anion Gap 16 H BUN 107 H Creatinine 7.81 H Estim Creat Clear Calc 7 Estimated GFR 7 L Glucose 118 H Calcium 7.6 L Phosphorus 8.1 H Albumin 3.0 L Quality VTE Prophylaxis VTE prophylaxis: mechanical ordered
[2025-04-10] MEDS: PANTOPRAZOLE 40 MG TABLET PO (08:23)
[2025-04-10] MEDS: CYANOCOBALAMIN 1,000 MCG TABLET 2000 MCG PO (08:23)
[2025-04-10] MEDS: CHOLECALCIFEROL 1,000 UNITS TABLET 1000 UNITS PO (08:24)
[2025-04-10] MEDS: CALCIUM/VITAMIN D 500 MG/5 MCG (200 I.U.) TABLET PO ×2 (08:24→17:47)
[2025-04-10] MEDS: amLODIPine BESYLATE 10 MG TABLET PO (08:24)
[2025-04-10] MEDS: SITagliptin PHOSPHATE 50 MG TABLET PO (08:24)
[2025-04-10] MEDS: ATORVASTATIN 20 MG TABLET PO (08:24)
[2025-04-10] MEDS: SEVELAMER CARBONATE 800 MG TABLET PO ×3 (08:24→17:47)
[2025-04-10] MEDS: LOPERAMIDE HCL 2 MG CAPSULE 4 MG PO ×2 (08:24→17:50)
[2025-04-10] MEDS: MAGNESIUM CHLORIDE 64 MG TABLET PO (08:24)
[2025-04-10] MEDS: AMPICILLIN TRIHYDRATE 500 MG CAPSULE PO (08:24)
[2025-04-10] MEDS: SODIUM BICARBONATE TAB 650 MG TABLET 1300 MG PO ×3 (08:25→17:47)
--- NOTE | 2025-04-10 10:42 | P.PNNP_ITS ---
Progress Note: A&P Assessment and Plan (1) Acute kidney injury: Code(s): N17.9 - Acute kidney failure, unspecified Status: Acute Assessment and Plan: * improving once again (following transient worsening from 04/08 - 04/09) * possible transient obstruction that resolved?? * as noted by admission creatinine * records reviewed/noted: * creatinine did improve to 3.0mg/dl (on 03/09/25) * however, did worsen/rise given recent bacteremia/infection on February 2025 admission - discharge creatinine was 4.16mg/dl * creatinine on this admission - 10.98mg/dl * evaluation to date noted: * CT of A/P showed hydronephrosis (but ureteral stent in good position) * UA suggestive of infection * urine electrolytes non-prerenal * CPK normal/ow * moderate proteinuria * renal ultrasound noted * renal scan today * etiology not entirely clear... * element of volume depletion (given improvement with IVFs) * recurrent obstruction? * infection (possible UTI? -- had bacteremia on last hospitalization but this was appropriately treated...) * continued use of irbesartan therapy * other(?) * noted issues with hypocalcemia and hyperphosphatemia * low calcium probably due to bicarb gtt * elevated phos due to MERI - started on binders to compensate (hopefully a temporary measure/intervention) * follow trend of repeat labs and UOP (2) Chronic kidney disease, stage IV (severe): Code(s): N18.4 - Chronic kidney disease, stage 4 (severe) Status: Acute Assessment and Plan: * last creatinine was 2.35mg/dl in December 2024 * this places him around CKD stage 3b/stage 4 * likely a result of his nephrectomy, hypertension, vascular disease and age- related change * given recent hospitalization for obstruction and infection/bacteremia -- he may have a new baseline... * follows with Dr. Olvin Dixon at [facility] for management of his CKD (3) Hyperkalemia: Code(s): E87.5 - Hyperkalemia Status: Acute Assessment and Plan: * due to MERI and possibly ARB use * improving * will stop lokelma * follow trend of K+ level (4) Metabolic acidosis: Code(s): E87.20 - Acidosis, unspecified Status: Acute Assessment and Plan: * slow improvement * due to MERI * on bicarb fluids (1/2NS + 75MEQ sodium bicarbonate) * attempting to compensate with use oral bicarbonate as well * attempt to wean bicarb IVFs and oral bicarb in the next 24 hours * follow CO2 levels (5) UTI (urinary tract infection): Qualifiers: Hematuria presence: without hematuria Urinary tract infection type: a cute cystitis Qualified Code(s): N30.00 - Acute cystitis without hematuria Code(s): N39.0 - Urinary tract infection, site not specified Status: Acute Assessment and Plan: * admission UA highly suggestive: * cloudy, 2+ protein, 3+ blood, 3+ leuks, greater than 100 RBC and WBC, 3+ bacteria, no epithelial cells, yeast present. * urine culture with Enterobacter * on antibiotics (6) Hydroureteronephrosis: Code(s): N13.30 - Unspecified hydronephrosis Status: Acute Assessment and Plan: * as noted by recent imaging studies * s/p cystoscopy, right retrograde pyelogram, right ureteral stent insertion (on 02/20) * right ureteral stent removal (on 03/09) * right ureteral stent replacement (on 03/10) as renal function acutely worsened after stent removal * Urology following (7) Anemia: Qualifiers: Anemia type: due to chronic kidney disease Chronic kidney disease stage: unspecified stage Qualified Code(s): N18.9 - Chronic kidney disease, unspecified; D63.1 - Anemia in chronic kidney disease Code(s): D64.9 - Anemia, unspecified Status: Chronic Assessment and Plan: * related to underlying CKD likely worsened by MERI * anemia studies with adequate iron stores * PRBC transfusion per protocol * Epogen while hospitalized * follow trend of H/H (8) Hypertension: Qualifiers: Hypertension type: primary hypertension Qualified Code(s): I10 - Essential (primary) hypertension Code(s): I10 - Essential (primary) hypertension Status: Chronic Assessment and Plan: * reasonable control at this time * holding ARB * follow trend of hemodynamics Will continue to follow. L Subjective Date/time seen: 04/10/25 10:42 Interval history: Follow-up for acute kidney injury/acute renal failure on chronic kidney disease. Significant improvement in renal function/creatinine in the last 24 hours with noted increase in urine output as well; potassium and acidosis have improved as well with current therapy/interventions; renal ultrasound results noted; renal scan planned later today; no other issues/events overnight or earlier this morning; no acute distress noted. Exam 2 Narrative: General: elderly but WD/WN male in NAD Heart: normal S1 and S2; no rub Lungs: clear to auscultation Abdomen: soft, nontender, nondistended, positive bowel sounds Extremities: no cyanosis or clubbing; no edema Skin: no nodules Objective Data Vital Signs Vital Signs: Vital Signs Temp Pulse Resp BP Pulse Ox O2 Del Method 04/10/25 05:40 96.8 F L 66 17 153/64 H 96 04/10/25 04:00 68 04/10/25 00:00 69 04/09/25 20:19 97.6 F 68 16 143/62 H 95 04/09/25 20:00 69 04/09/25 20:00 68 16 95 Room Air 04/09/25 16:00 71 Intake/Output Intake/Output: Intake & Output 04/07/25 04/08/25 04/09/25 04/10/25 23:59 23:59 23:59 23:59 Intake Total 2725 4920 3095 240 Output Total 2950 400 4200 1600 Balance -225 4520 -1105 -1360 Meds/Results Medications: Active Medications Generic Name Dose Route Start Last Admin Trade Name Freq PRN Reason Stop Dose Admin Acetaminophen 650 mg 04/06/25 10:38 Acetaminophen 325 Mg Tablet PO Q4H PRN Mild Pain (1-3) or Fever Amlodipine Besylate 10 mg 04/07/25 09:00 04/10/25 08:24 Amlodipine Besylate 10 Mg Tablet PO 10 mg DAILY KIRSTEN Administration Amoxicillin 500 mg 04/10/25 21:00 Amoxicillin 500 Mg Capsule PO Q12HR KIRSTEN Atorvastatin Calcium 20 mg 04/06/25 13:35 04/10/25 08:24 Atorvastatin 20 Mg Tablet PO 20 mg DAILY KIRSTEN Administration Calcium Carbonate 500 mg 04/08/25 08:00 04/10/25 08:24 Calcium/Vitamin D 500 Mg/5 Mcg (200 I.U.) Tablet PO 500 mg BIDWM KIRSTEN Administration Cyanocobalamin 2,000 mcg 04/06/25 13:35 04/10/25 08:23 Cyanocobalamin 1,000 Mcg Tablet PO 2,000 mcg DAILY KIRSTEN Administration Dextrose 12.5 gm 04/06/25 13:14 Dextrose 50% 25 Gm/50 Ml Syringe IV PUSH PRN PRN Hypoglycemia Protocol Epoetin Adam-epbx 10,000 units 04/10/25 09:00 04/10/25 12:19 Epoetin Adam-Epbx 10,000 Units/Ml Vial SUB-Q 10,000 units MOWEFR@09 KIRSTEN Administration Glucagon 1 mg 04/06/25 13:14 Glucagon For Inj 1 Mg Vial IM PRN PRN Hypoglycemia Protocol Glucose 15 gm 04/06/25 13:14 Glucose Oral Gel 15 Gm Of Glucse In 37.5 Gm Tube PO PRN PRN Hypoglycemia Protocol Dextrose 1,000 mls @ 100 mls/hr 04/06/25 13:14 Dextrose 5% 1,000 Ml IVPB PRN PRN Hypoglycemia Protocol Sodium Bicarbonate 75 meq/ 1,075 mls @ 75 mls/hr 04/09/25 08:25 04/10/25 04:29 Sodium Chloride IV CONT Not Given .[id number] KIRSTEN Irbesartan 75 mg 04/06/25 13:35 04/06/25 14:03 Irbesartan 75 Mg Tablet PO 75 mg DAILY KIRSTEN Administration Loperamide HCl 4 mg 04/06/25 17:00 04/10/25 08:24 Loperamide Hcl 2 Mg Capsule PO 4 mg BID KIRSTEN Administration Magnesium Chloride 64 mg 04/08/25 09:00 04/10/25 08:24 Magnesium Chloride 64 Mg Tablet PO 64 mg DAILY KIRSTEN Administration Ondansetron HCl 4 mg 04/06/25 10:38 04/08/25 03:04 Ondansetron Inj 4 Mg/2 Ml Vial IV PUSH 4 mg Q4H PRN Administration Nausea Pantoprazole Sodium 40 mg 04/06/25 13:35 04/10/25 08:23 Pantoprazole 40 Mg Tablet PO 40 mg QAM KIRSTEN Administration Ropinirole HCl 3 mg 04/06/25 21:00 04/09/25 20:47 Ropinirole Hcl 1 Mg Tablet PO 3 mg HS KIRSTEN Administration Sevelamer Carbonate 800 mg 04/09/25 08:00 04/10/25 12:19 Sevelamer Carbonate 800 Mg Tablet PO 800 mg TIDWM KIRSTEN Administration Sitagliptin Phosphate 50 mg 04/06/25 13:35 04/10/25 08:24 Sitagliptin Phosphate 50 Mg Tablet PO 50 mg DAILY KIRSTEN Administration Sodium Bicarbonate 1,300 mg 04/09/25 09:00 04/10/25 08:25 Sodium Bicarbonate Tab 650 Mg Tablet PO 1,300 mg TID KIRSTEN Administration Sodium Zirconium Cyclosilicate 10 gm 04/07/25 10:00 04/10/25 12:19 Sodium Zirconium Cyclosilicate 10 Gm Powd.Pack PO 10 gm DAILY@1000 KIRSTEN Administration Vitamin D 1,000 units 04/06/25 13:35 04/10/25 08:24 Cholecalciferol 1,000 Units Tablet PO 1,000 units DAILY KIRSTEN Administration Radiology Results: ITS Impressions Chest X-Ray 04/06/25 09:42 IMPRESSION: No acute cardiopulmonary pathology. Abdomen/Pelvis CT 04/06/25 10:11 Impression: Moderate to advanced right hydroureteronephrosis is similar to prior exam, now with ureteral stent in place. 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 No discrete mass lesion evident. Appearance is similar to prior exam. Probable cystitis. Correlate with urinalysis. No significant abnormality in the chest. Renal Ultrasound 04/09/25 12:06 Impression: 1: Chronic moderate right hydronephrosis. Renal Scan Nuclear Medicine 04/10/25 13:35 IMPRESSION: 1. No evident left renal activity with absent left kidney on prior CT. 2. Markedly delayed time to peak activity in the right kidney which could be due to high-grade obstruction with moderate right hydronephrosis despite the presence of an internal ureteral stent on recent prior CT versus severe nonspecific nephropathy of other indeterminate etiology. Labs Labs: Laboratory Tests 04/10/25 05:13 04/10/25 05:13 Calcium 7.6 L Phosphorus 8.1 H Albumin 3.0 L
[2025-04-10] MEDS: SODIUM ZIRCONIUM CYCLOSILICATE 10 GM POWD.PACK PO (12:19)
[2025-04-10] MEDS: EPOETIN ALFA-EPBX 10,000 UNITS/ML VIAL 10000 UNITS SUB-Q (12:19)
[2025-04-10 18:48] LABS: Albumin Level 3.2 g/dL (3.5-5.1); Anion Gap 16 mmol/L (4-12); Blood Urea Nitrogen 100 mg/dL (9-20); Calcium 7.2 mg/dL (8.4-10.2); Carbon Dioxide 18 mmol/L (22-30); Chloride 99 mmol/L (98-107); Estimated CRCL calculation 7 ml/min; Estimated Glomerular Filt Rate 7; Glucose 187 mg/dL (65-110); Phosphorus 6.8 mg/dL (2.5-4.5); Potassium 3.8 mmol/L (3.4-5.0); Sodium 133 mmol/L (137-145)
[2025-04-10] MEDS: rOPINIRole HCL 1 MG TABLET 3 MG PO (20:04)
[2025-04-10] MEDS: AMOXICILLIN 500 MG CAPSULE PO (20:04)
[2025-04-10] MEDS: ACETAMINOPHEN 325 MG TABLET 650 MG PO (20:09)
[2025-04-10] MEDS: ONDANSETRON INJ 4 MG/2 ML VIAL IV PUSH (21:29)
[2025-04-11] VITALS: PULSE 63
[2025-04-11 04:00] VITALS: PULSE 58
[2025-04-11 05:56] LABS: Basophils Percent Auto 0.1 % (0.2-1.2); Eosinophils Absolute Auto 0.1 K/mm3 (0-0.3); Hematocrit 24.4 % (42.0-52.0); Hemoglobin 7.5 g/dL (14.0-18.0); Immature Granulocyte Absolute 0.16 K/mm3 (0.00-0.031); Immature Granulocyte Percent A 1.6 % (0-0.5); Mean Corpuscular HGB Conc 30.7 g/dl (32-36); Mean Corpuscular Hemoglobin 28.3 pg (26-34); Mean Corpuscular Volume 92.1 fl (80-100); Mean Platelet Volume 10.4 fl (7.4-10.4); Monocytes Absolute Auto 0.5 K/mm3 (0.1-0.6); Monocytes Percent Auto 5.4 % (2.6-8.5); Neutrophils Absolute Auto 8.2 K/mm3 (1.3-6.7); Neutrophils Percent Auto 81.9 % (45.5-73.1); Platelet Count Result 206 k/mm3 (150-375); Red Blood Count 2.65 M/mm3 (4.6-6.20); Red Cell Distribution Width 14.3 % (11.5-14.5)
[2025-04-11 06:00] VITALS: BP 149/70; PULSE 66; RESP 16; TEMP 36.5; O2SAT 94
[2025-04-11 06:15] LABS: Albumin Level 3.1 g/dL (3.5-5.1); Anion Gap 14 mmol/L (4-12); Blood Urea Nitrogen 94 mg/dL (9-20); Calcium 7.3 mg/dL (8.4-10.2); Carbon Dioxide 23 mmol/L (22-30); Chloride 100 mmol/L (98-107); Estimated CRCL calculation 8 ml/min; Estimated Glomerular Filt Rate 8; Glucose 106 mg/dL (65-110); Phosphorus 6.8 mg/dL (2.5-4.5); Potassium 3.8 mmol/L (3.4-5.0); Sodium 137 mmol/L (137-145)
--- NOTE | 2025-04-11 06:29 | WPDUROPN2 ---
Progress Note: A&P Assessment and Plan (1) History of left nephrectomy: Code(s): Z90.5 - Acquired absence of kidney Status: Acute (2) Acute kidney injury: Code(s): N17.9 - Acute kidney failure, unspecified Status: Acute Assessment and Plan: Serum creatinine improved again today and urine output remains excellent. Imaging, insert creatinine and persistent urine output suggests the right ureteral stent is functioning appropriately Pending nephrology approval I would be comfortable with discharge with careful outpatient lab evaluation Subjective Subjective Date/Time Seen: 04/11/25 06:29 Interval history: No complaints Review of Systems Cardiovascular: Cardiovascular: Denies chest pain, Denies lightheadedness, Denies palpitations and Denies dyspnea Respiratory: Respiratory: Denies dyspnea Gastrointestinal: Gastrointestinal: Denies diarrhea, Denies nausea and Denies vomiting Genitourinary: Genitourinary: Denies hematuria and Denies dysuria Endocrine: Endocrine: Denies palpitations Exam Const: General: no acute distress Resp: Effort & Inspection: normal respiratory effort GI: Inspection: non-distended GI Palp: No abdominal tenderness and No Guarding due to palpation present (GI) Auscultation: normal bowel sounds Objective Data Vital Signs Vital Signs: Vital Signs - 24 hr 04/10/25 08:00 04/10/25 12:00 04/10/25 14:00 Temperature 98 F Pulse Rate 62 74 68 Respiratory Rate 18 Blood Pressure 134/68 Pulse Oximetry 97 Oxygen Delivery 04/10/25 15:39 04/10/25 20:00 04/10/25 20:00 Temperature 98.6 F Pulse Rate 70 72 Respiratory Rate 16 Blood Pressure 149/74 H Pulse Oximetry 99 Oxygen Delivery Room Air 04/11/25 06:00 Temperature 97.7 F Pulse Rate 66 Respiratory Rate 16 Blood Pressure 149/70 H Pulse Oximetry 94 Oxygen Delivery Intake/Output Intake/Output: Intake & Output 04/08/25 04/09/25 04/10/25 04/11/25 23:59 23:59 23:59 23:59 Intake Total 4920 3095 1270 200 Output Total 400 4200 4150 1600 Balance 4520 -1105 -2880 -1400 Meds/Results Medications: Active Medications Generic Name Dose Route Start Last Admin Trade Name Freq PRN Reason Stop Dose Admin Acetaminophen 650 mg 04/06/25 10:38 04/10/25 20:09 Acetaminophen 325 Mg Tablet PO 650 mg Q4H PRN Administration Mild Pain (1-3) or Fever Amlodipine Besylate 10 mg 04/07/25 09:00 04/10/25 08:24 Amlodipine Besylate 10 Mg Tablet PO 10 mg DAILY KIRSTEN Administration Amoxicillin 500 mg 04/10/25 21:00 04/10/25 20:04 Amoxicillin 500 Mg Capsule PO 500 mg Q12HR KIRSTEN Administration Atorvastatin Calcium 20 mg 04/06/25 13:35 04/10/25 08:24 Atorvastatin 20 Mg Tablet PO 20 mg DAILY KIRSTEN Administration Calcium Carbonate 500 mg 04/08/25 08:00 04/10/25 17:47 Calcium/Vitamin D 500 Mg/5 Mcg (200 I.U.) Tablet PO 500 mg BIDWM KIRSTEN Administration Cyanocobalamin 2,000 mcg 04/06/25 13:35 04/10/25 08:23 Cyanocobalamin 1,000 Mcg Tablet PO 2,000 mcg DAILY KIRSTEN Administration Dextrose 12.5 gm 04/06/25 13:14 Dextrose 50% 25 Gm/50 Ml Syringe IV PUSH PRN PRN Hypoglycemia Protocol Epoetin Adam-epbx 10,000 units 04/10/25 09:00 04/10/25 12:19 Epoetin Adam-Epbx 10,000 Units/Ml Vial SUB-Q 10,000 units MOWEFR@09 KIRSTEN Administration Glucagon 1 mg 04/06/25 13:14 Glucagon For Inj 1 Mg Vial IM PRN PRN Hypoglycemia Protocol Glucose 15 gm 04/06/25 13:14 Glucose Oral Gel 15 Gm Of Glucse In 37.5 Gm Tube PO PRN PRN Hypoglycemia Protocol Dextrose 1,000 mls @ 100 mls/hr 04/06/25 13:14 Dextrose 5% 1,000 Ml IVPB PRN PRN Hypoglycemia Protocol Sodium Chloride 1,000 mls @ 75 mls/hr 04/11/25 06:20 Normal Saline Iv IV CONT .[id number] [facility] Irbesartan 75 mg 04/06/25 13:35 04/06/25 14:03 Irbesartan 75 Mg Tablet PO 75 mg DAILY KIRSTEN Administration Loperamide HCl 4 mg 04/06/25 17:00 04/10/25 17:50 Loperamide Hcl 2 Mg Capsule PO 4 mg BID KIRSTEN Administration Magnesium Chloride 64 mg 04/08/25 09:00 04/10/25 08:24 Magnesium Chloride 64 Mg Tablet PO 64 mg DAILY KIRSTEN Administration Ondansetron HCl 4 mg 04/06/25 10:38 04/10/25 21:29 Ondansetron Inj 4 Mg/2 Ml Vial IV PUSH 4 mg Q4H PRN Administration Nausea Pantoprazole Sodium 40 mg 04/06/25 13:35 04/10/25 08:23 Pantoprazole 40 Mg Tablet PO 40 mg QAM KIRSTEN Administration Ropinirole HCl 3 mg 04/06/25 21:00 04/10/25 20:04 Ropinirole Hcl 1 Mg Tablet PO 3 mg HS KIRSTEN Administration Sevelamer Carbonate 800 mg 04/09/25 08:00 04/10/25 17:47 Sevelamer Carbonate 800 Mg Tablet PO 800 mg TIDWM KIRSTEN Administration Sitagliptin Phosphate 50 mg 04/06/25 13:35 04/10/25 08:24 Sitagliptin Phosphate 50 Mg Tablet PO 50 mg DAILY KIRSTEN Administration Vitamin D 1,000 units 04/06/25 13:35 04/10/25 08:24 Cholecalciferol 1,000 Units Tablet PO 1,000 units DAILY KIRSTEN Administration Radiology Results: ITS Impressions Chest X-Ray 04/06/25 09:42 IMPRESSION: No acute cardiopulmonary pathology. Abdomen/Pelvis CT 04/06/25 10:11 Impression: Moderate to advanced right hydroureteronephrosis is similar to prior exam, now with ureteral stent in place. 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 No discrete mass lesion evident. Appearance is similar to prior exam. Probable cystitis. Correlate with urinalysis. No significant abnormality in the chest. Renal Ultrasound 04/09/25 12:06 Impression: 1: Chronic moderate right hydronephrosis. Renal Scan Nuclear Medicine 04/10/25 13:35 IMPRESSION: 1. No evident left renal activity with absent left kidney on prior CT. 2. Markedly delayed time to peak activity in the right kidney which could be due to high-grade obstruction with moderate right hydronephrosis despite the presence of an internal ureteral stent on recent prior CT versus severe nonspecific nephropathy of other indeterminate etiology. Labs Labs: Laboratory Results - last 24 hr 04/10/25 04/11/25 18:15 05:09 WBC 10.0 RBC 2.65 L Hgb 7.5 L Hct 24.4 L MCV 92.1 MCH 28.3 MCHC 30.7 L RDW 14.3 Plt Count 206 MPV 10.4 Immature Gran % (Auto) 1.6 H Neut % (Auto) 81.9 H Lymph % (Auto) 10.0 L [place] % (Auto) 5.4 Eos % (Auto) 1.0 Baso % (Auto) 0.1 L Lymph # (Auto) 1.00 [place] # (Auto) 0.5 Eos # (Auto) 0.1 Baso # (Auto) 0.0 Abs Immat Gran (auto) 0.16 H Absolute Neuts (auto) 8.2 H Absolute Nucleated RBC 0.000 Nucleated RBC % 0.0 Sodium 133 L 137 Potassium 3.8 3.8 Chloride 99 100 Carbon Dioxide 18 L 23 Anion Gap 16 H 14 H BUN 100 H 94 H Creatinine 7.21 H 6.74 H Estim Creat Clear Calc 7 8 Estimated GFR 7 L 8 L Glucose 187 H 106 Calcium 7.2 L 7.3 L Phosphorus 6.8 H 6.8 H Albumin 3.2 L 3.1 L
[2025-04-11] MEDS: SODIUM CHLORIDE 0.9% IV 1,000 ML 75 ML IV CONT (06:48)
[2025-04-11] MEDS: ACETAMINOPHEN 325 MG TABLET 650 MG PO (06:52)
[2025-04-11 08:00] VITALS: PULSE 69
[2025-04-11] MEDS: SITagliptin PHOSPHATE 50 MG TABLET PO (08:27)
[2025-04-11] MEDS: AMOXICILLIN 500 MG CAPSULE PO (08:27)
[2025-04-11] MEDS: CYANOCOBALAMIN 1,000 MCG TABLET 2000 MCG PO (08:27)
[2025-04-11] MEDS: CALCIUM/VITAMIN D 500 MG/5 MCG (200 I.U.) TABLET PO (08:27)
[2025-04-11] MEDS: amLODIPine BESYLATE 10 MG TABLET PO (08:27)
[2025-04-11] MEDS: ATORVASTATIN 20 MG TABLET PO (08:27)
[2025-04-11] MEDS: SEVELAMER CARBONATE 800 MG TABLET PO (08:27)
[2025-04-11] MEDS: PANTOPRAZOLE 40 MG TABLET PO (08:27)
[2025-04-11] MEDS: CHOLECALCIFEROL 1,000 UNITS TABLET 1000 UNITS PO (08:27)
[2025-04-11] MEDS: MAGNESIUM CHLORIDE 64 MG TABLET PO (08:27)
[2025-04-11] MEDS: LOPERAMIDE HCL 2 MG CAPSULE 4 MG PO (08:33)
--- NOTE | 2025-04-11 10:25 | P.PNNP_ITS ---
Progress Note: A&P Assessment and Plan (1) Acute kidney injury: Code(s): N17.9 - Acute kidney failure, unspecified Status: Acute Assessment and Plan: * improving once again (following transient worsening from 04/08 - 04/09) * possible transient obstruction that resolved?? * as noted by admission creatinine * records reviewed/noted: * creatinine did improve to 3.0mg/dl (on 03/09/25) * however, did worsen/rise given recent bacteremia/infection on February 2025 admission - discharge creatinine was 4.16mg/dl * creatinine on this admission - 10.98mg/dl * evaluation to date noted: * CT of A/P showed hydronephrosis (but ureteral stent in good position) * UA suggestive of infection * urine electrolytes non-prerenal * CPK normal/ow * moderate proteinuria * renal ultrasound noted * renal scan reviewed as well * etiology not entirely clear... * element of volume depletion (given improvement with IVFs) * recurrent or possble transient obstruction? * infection (possible UTI? -- had bacteremia on last hospitalization but this was appropriately treated...) * continued use of irbesartan therapy * other(?) * noted issues with hypocalcemia and hyperphosphatemia * low calcium probably due to bicarb gtt * elevated phos due to MERI - started on binders to compensate (hopefully a temporary measure/intervention) * follow trend of repeat labs and UOP (2) Chronic kidney disease, stage IV (severe): Code(s): N18.4 - Chronic kidney disease, stage 4 (severe) Status: Acute Assessment and Plan: * last creatinine was 2.35mg/dl in December 2024 * this places him around CKD stage 3b/stage 4 * likely a result of his nephrectomy, hypertension, vascular disease and age- related change * given recent hospitalization for obstruction and infection/bacteremia -- he may have a new baseline... * follows with Dr. Olvin Dixon at [facility] for management of his CKD (3) Hyperkalemia: Code(s): E87.5 - Hyperkalemia Status: Acute Assessment and Plan: * due to MERI and possibly ARB use * improving * will stop lokelma * follow trend of K+ level (4) Metabolic acidosis: Code(s): E87.20 - Acidosis, unspecified Status: Acute Assessment and Plan: * slow improvement if not resolving * due to MERI * bicarb fluids (1/2NS + 75MEQ sodium bicarbonate) discontinued * on oral bicarbonate as well * reduce dosing/frequency with plan to d/c a few weeks after discharge * follow CO2 levels (5) UTI (urinary tract infection): Qualifiers: Hematuria presence: without hematuria Urinary tract infection type: a cute cystitis Qualified Code(s): N30.00 - Acute cystitis without hematuria Code(s): N39.0 - Urinary tract infection, site not specified Status: Acute Assessment and Plan: * admission UA highly suggestive: * cloudy, 2+ protein, 3+ blood, 3+ leuks, greater than 100 RBC and WBC, 3+ bacteria, no epithelial cells, yeast present. * urine culture with Enterobacter * on antibiotics (6) Hydroureteronephrosis: Code(s): N13.30 - Unspecified hydronephrosis Status: Acute Assessment and Plan: * as noted by recent imaging studies * s/p cystoscopy, right retrograde pyelogram, right ureteral stent insertion (on 02/20) * right ureteral stent removal (on 03/09) * right ureteral stent replacement (on 03/10) as renal function acutely worsened after stent removal * Urology following (7) Anemia: Qualifiers: Anemia type: due to chronic kidney disease Chronic kidney disease stage: unspecified stage Qualified Code(s): N18.9 - Chronic kidney disease, unspecified; D63.1 - Anemia in chronic kidney disease Code(s): D64.9 - Anemia, unspecified Status: Chronic Assessment and Plan: * related to underlying CKD likely worsened by MERI * anemia studies with adequate iron stores * PRBC transfusion per protocol * Epogen while hospitalized * follow trend of H/H (8) Hypertension: Qualifiers: Hypertension type: primary hypertension Qualified Code(s): I10 - Essential (primary) hypertension Code(s): I10 - Essential (primary) hypertension Status: Chronic Assessment and Plan: * reasonable control at this time * holding ARB * if further BP control needed, consider adding another agent (i.e. hydralazine) * follow trend of hemodynamics Case discussed wit Will Ambriz PA-C. Would not be opposed to discharge from renal perspective -- will need close follow-up with repeat labs to ensure ongoing improvement in renal function as well as stability in potassium and acid-base status; he can follow-up with his primary social sciences chair (Dr. Dixon) as well. Will continue to follow. L Subjective Date/time seen: 04/11/25 10:25 Interval history: Follow-up for acute kidney injury/acute renal failure on chronic kidney disease. No apparent distress noted at this time; renal function/creatinine continues to improve with supportive therapy with normalization of potassium and metabolic acidosis as well; no acute issues/complaints voiced when seen; no other converns to report at this time. Exam 2 Narrative: General: elderly but WD/WN male in NAD Heart: normal S1 and S2; no rub Lungs: clear to auscultation Abdomen: soft, nontender, nondistended, positive bowel sounds Extremities: no cyanosis or clubbing; no edema Skin: warm and dry Objective Data Vital Signs Vital Signs: Vital Signs Temp Pulse Resp BP Pulse Ox O2 Del Method 04/11/25 08:00 Room Air 04/11/25 06:00 97.7 F 66 16 149/70 H 94 04/11/25 04:00 58 L 04/11/25 00:00 63 04/10/25 20:00 90 04/10/25 20:00 98.6 F 72 16 149/74 H 99 04/10/25 20:00 Room Air 04/10/25 15:39 70 04/10/25 14:00 98 F 68 18 134/68 97 04/10/25 12:00 74 Intake/Output Intake/Output: Intake & Output 04/08/25 04/09/25 04/10/25 04/11/25 23:59 23:59 23:59 23:59 Intake Total 4920 3095 1270 680 Output Total 400 4200 4150 1600 Balance 4520 -1105 -2880 -920 Meds/Results Medications: Active Medications Generic Name Dose Route Start Last Admin Trade Name Freq PRN Reason Stop Dose Admin Acetaminophen 650 mg 04/06/25 10:38 04/11/25 06:52 Acetaminophen 325 Mg Tablet PO 650 mg Q4H PRN Administration Mild Pain (1-3) or Fever Amlodipine Besylate 10 mg 04/07/25 09:00 04/11/25 08:27 Amlodipine Besylate 10 Mg Tablet PO 10 mg DAILY KIRSTEN Administration Amoxicillin 500 mg 04/10/25 21:00 04/11/25 08:27 Amoxicillin 500 Mg Capsule PO 500 mg Q12HR KIRSTEN Administration Atorvastatin Calcium 20 mg 04/06/25 13:35 04/11/25 08:27 Atorvastatin 20 Mg Tablet PO 20 mg DAILY KIRSTEN Administration Calcium Carbonate 500 mg 04/08/25 08:00 04/11/25 08:27 Calcium/Vitamin D 500 Mg/5 Mcg (200 I.U.) Tablet PO 500 mg BIDWM KIRSTEN Administration Cyanocobalamin 2,000 mcg 04/06/25 13:35 04/11/25 08:27 Cyanocobalamin 1,000 Mcg Tablet PO 2,000 mcg DAILY KIRSTEN Administration Dextrose 12.5 gm 04/06/25 13:14 Dextrose 50% 25 Gm/50 Ml Syringe IV PUSH PRN PRN Hypoglycemia Protocol Epoetin Adam-epbx 10,000 units 04/10/25 09:00 04/10/25 12:19 Epoetin Adam-Epbx 10,000 Units/Ml Vial SUB-Q 10,000 units MOWEFR@09 KIRSTEN Administration Glucagon 1 mg 04/06/25 13:14 Glucagon For Inj 1 Mg Vial IM PRN PRN Hypoglycemia Protocol Glucose 15 gm 04/06/25 13:14 Glucose Oral Gel 15 Gm Of Glucse In 37.5 Gm Tube PO PRN PRN Hypoglycemia Protocol Dextrose 1,000 mls @ 100 mls/hr 04/06/25 13:14 Dextrose 5% 1,000 Ml IVPB PRN PRN Hypoglycemia Protocol Sodium Chloride 1,000 mls @ 75 mls/hr 04/11/25 06:20 04/11/25 06:48 Normal Saline Iv IV CONT 75 mls/hr .[id number] KIRSTEN Administration Irbesartan 75 mg 04/06/25 13:35 04/06/25 14:03 Irbesartan 75 Mg Tablet PO 75 mg DAILY KIRSTEN Administration Loperamide HCl 4 mg 04/06/25 17:00 04/11/25 08:33 Loperamide Hcl 2 Mg Capsule PO 4 mg BID KIRSTEN Administration Magnesium Chloride 64 mg 04/08/25 09:00 04/11/25 08:27 Magnesium Chloride 64 Mg Tablet PO 64 mg DAILY KIRSTEN Administration Ondansetron HCl 4 mg 04/06/25 10:38 04/10/25 21:29 Ondansetron Inj 4 Mg/2 Ml Vial IV PUSH 4 mg Q4H PRN Administration Nausea Pantoprazole Sodium 40 mg 04/06/25 13:35 04/11/25 08:27 Pantoprazole 40 Mg Tablet PO 40 mg QAM KIRSTEN Administration Ropinirole HCl 3 mg 04/06/25 21:00 04/10/25 20:04 Ropinirole Hcl 1 Mg Tablet PO 3 mg HS KIRSTEN Administration Sevelamer Carbonate 800 mg 04/09/25 08:00 04/11/25 08:27 Sevelamer Carbonate 800 Mg Tablet PO 800 mg TIDWM KIRSTEN Administration Sitagliptin Phosphate 50 mg 04/06/25 13:35 04/11/25 08:27 Sitagliptin Phosphate 50 Mg Tablet PO 50 mg DAILY KIRSTEN Administration Vitamin D 1,000 units 04/06/25 13:35 04/11/25 08:27 Cholecalciferol 1,000 Units Tablet PO 1,000 units DAILY KIRSTEN Administration Radiology Results: ITS Impressions Chest X-Ray 04/06/25 09:42 IMPRESSION: No acute cardiopulmonary pathology. Abdomen/Pelvis CT 04/06/25 10:11 Impression: Moderate to advanced right hydroureteronephrosis is similar to prior exam, now with ureteral stent in place. 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 No discrete mass lesion evident. Appearance is similar to prior exam. Probable cystitis. Correlate with urinalysis. No significant abnormality in the chest. Renal Ultrasound 04/09/25 12:06 Impression: 1: Chronic moderate right hydronephrosis. Renal Scan Nuclear Medicine 04/10/25 13:35 IMPRESSION: 1. No evident left renal activity with absent left kidney on prior CT. 2. Markedly delayed time to peak activity in the right kidney which could be due to high-grade obstruction with moderate right hydronephrosis despite the presence of an internal ureteral stent on recent prior CT versus severe nonspecific nephropathy of other indeterminate etiology. Labs Labs: Laboratory Tests 04/11/25 05:09 04/11/25 05:09 Calcium 7.3 L Phosphorus 6.8 H Albumin 3.1 L
--- NOTE | 2025-04-11 11:05 | P.DS_ITS ---
DS: Admitting Diagnosis Discharge Date 04/11/2025 Admitting Diagnosis Acute on chronic kidney failure Acute hyperkalemia Urinary tract infection DS: Discharge Diagnosis Discharge Diagnosis (1) Acute on chronic kidney failure: Qualifiers: Acute renal failure type: unspecified Chronic kidney disease stage: unspecified stage Qualified Code(s): N17.9 - Acute kidney failure, unspecified; N18.9 - Chronic kidney disease, unspecified Code(s): N17.9 - Acute kidney failure, unspecified; N18.9 - Chronic kidney disease, unspecified Status: Acute (2) Acute hyperkalemia: Code(s): E87.5 - Hyperkalemia Status: Resolved (3) Hypocalcemia: Code(s): E83.51 - Hypocalcemia Status: Acute (4) UTI (urinary tract infection): Qualifiers: Hematuria presence: without hematuria Urinary tract infection type: acute cystitis Qualified Code(s): N30.00 - Acute cystitis without hematuria Code(s): N39.0 - Urinary tract infection, site not specified Status: Acute (5) Metabolic acidosis: Code(s): E87.20 - Acidosis, unspecified Status: Acute (6) Anemia: Qualifiers: Anemia type: due to chronic kidney disease Chronic kidney disease stage: unspecified stage Qualified Code(s): N18.9 - Chronic kidney disease, unspecified; D63.1 - Anemia in chronic kidney disease Code(s): D64.9 - Anemia, unspecified Status: Chronic (7) Hypertension: Qualifiers: Hypertension type: primary hypertension Qualified Code(s): I10 - Essential (primary) hypertension Code(s): I10 - Essential (primary) hypertension Status: Chronic (8) Prediabetes: Code(s): R73.03 - Prediabetes Status: Acute DS: Summary Hospital Course Reason for hospitalization: Abnormal Labs Hospital Course: 74 y/o M with PMH of CKD, carcinoma of colorectal region (s/p radiation, total colectomy, and partial small-bowel resection), HTN, RLS, HLD, Crohn's disease, kidney stones, nephrectomy (left, 2012), 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 The patient was recently admitted twice in the last few months. The first from 02/17/2025 to 02/22/2025 for sepsis secondary to a UTI, acute on chronic kidney failure, and kidney stone with subsequent moderate hydronephrosis. He had a right ureteral stent placed on 02/19/2025. Stent was removed on 03/09/2025 at [facility]. Repeat lab work on 03/10, showed worsening renal function (display manager 3.01 -> 4.7) Arrived with fever of 102.6 ° F. patient had a right stent placed and was admitted for IV antibiotics. Urine culture and blood culture grew Enterobacter. Antibiotic was transitioned from ceftriaxone to cefepime. He had a follow up blood culture on 03/12 which was negative. He was discharged on 03/15 with a creatinine of 4.16 and a GFR of 14. Patient was directed to the ER today when follow-up lab work showed a potassium of 6.5 and worsening renal function with a creatinine of 10.98 and a GFR 5. The patient currently feels he is in his normal state of health. He denies fever, chills, body aches, dysuria, urinary frequency, abdominal pain, suprapubic pain, or hematuria. Initial VS at presentation: 98.2° F, HR 73, R 16, 149/66, and 98% on RA. ED workup: WBC 4.4, hemoglobin 7.7 (previously 8.8), K 6.5, creatinine 10.98, BUN 99, GFR 5, magnesium 1.0, and UA suggestive of UTI. CXR showed no acute cardiopulmonary pathology. CT of the abdomen/pelvis showed moderate to advanced right hydroureteronephrosis (similar to prior exam, now with ureteral stent in place), s/p total colectomy with stable infiltrative changes in the presacral/precoccygeal soft tissues, no discrete mass lesion evident, appearance similar to prior exam, probable cystitis, no significant abnormality in the chest. Urology was consulted for hydroureteronephrosis. No plans or need for urological surgical intervention. CT of the abdomen/pelvis showed moderate/advanced right hydroureteronephrosis similar to prior imaging. Nephrology was consulted regarding MERI CKD management, and hyperkalemia. We had long discussion the patient regarding possible dialysis requirement is ongoing renal dysfunction continued despite conservative medical management. Creatinine on admission was 10.9, significantly increased from his baseline. Etiology is not clear, but there was a possible element of volume depletion and chronic urinary obstruction. Urinalysis was obtained which was suggestive of a urinary tract infection. Urinary electrolytes indicative of non prerenal MERI, with moderate proteinuria. Renal ultrasound consistent with stent placement and hydronephrosis. Once again, likely multifactorial cause of MERI given infection, possible transient obstruction and volume depletion. Patient was also found to have hypo calcemia, likely secondary due to bicarb GTT. Hyperphosphatemia likely elevated due to MERI. Patient was started on phosphate binders to compensate and this causes improvement in phosphatase levels over the course of hospitalization. Patient was found to have hyperkalemia admission, likely secondary to MERI and Arb use. Lokelma was initiated and patient was found to have therapeutic potassium levels within a few days. Lokelma was discontinued. Patient was initiated on antibiotics for UTI. Urology continue following patient throughout hospitalization given hydroureteronephrosis. This remained stable however and no interventions were needed. Urine output increased to appropriate levels and creatinine continued to decline throughout hospitalization. On 04/11, creatinine was 6.74 down from 10.98 upon admission. After long discussion with Nephrology and the patient, the patient continued to express interest in being discharged this time, despite the elevated creatinine. Given patient's ability to intake oral hydration appropriately and lack of significant signs or symptoms, as well as talking with urology and nephrology, patient is stable for discharge at this time. I will give prescription for amoxicillin for antibiotic coverage of his UTI and a standing order to have repeat blood work to monitor creatinine levels. Patient is otherwise hemodynamically stable with stable vital signs. At no point during his hospitalization did the patient have any pains or complaints and his physical exam was consistently benign. Plan for discharge home at this time with a ppropriate follow-up with Nephrology and Urology. Status at Discharge Functional status at discharge: independent ambulation Overall status at discharge: patient is back to baseline Time Spent with Patient Time attestation: Total time spent providing and/or coordinating discharge services: 35 Exam Const: General: comfortable and no acute distress Other: , male, elderly, nontoxic appearance HENMT: Face/Nose/Sinus: Normal nares present Mouth: Yes moist mucous membranes Eyes: General: appearance normal, both eyes and all related structures Sclera: sclerae normal Pupils: Equal, round and reactive pupils present EOM: EOMs intact bilaterally Resp: Effort & Inspection: normal respiratory effort Auscultation: clear to auscultation bilaterally Cardio: Rate: regular rate Rhythm: regular rhythm Other: S1-S2 present without murmur, rub, ectopy GI: Other: Abdomen soft, nondistended, nontender. Normoactive bowel sounds in all quadrants. Skin: General skin exam: normal color and no rashes or lesions noted Wounds: no wounds Neuro: Cranial nerves: Yes Equal, round and reactive pupils present Speech: normal speech Motor exam (neuro): 5/5 motor strength present throughout Sensory Exam: normal sensation Other: A&O x4 Extrem: General: normal to inspection Psych: Mental Status: mental status grossly normal Affect: normal affect Other: Good insight and judgment, pleasant DS: Data Data Completed and Pending Labs on day of discharge: Labs from last 24 hours 04/11/25 04/10/25 05:09 18:15 WBC 10.0 RBC 2.65 L Hgb 7.5 L Hct 24.4 L MCV 92.1 MCH 28.3 MCHC 30.7 L RDW 14.3 Plt Count 206 MPV 10.4 Immature Gran % (Auto) 1.6 H Neut % (Auto) 81.9 H Lymph % (Auto) 10.0 L Bladen % (Auto) 5.4 Eos % (Auto) 1.0 Baso % (Auto) 0.1 L Lymph # (Auto) 1.00 Bladen # (Auto) 0.5 Eos # (Auto) 0.1 Baso # (Auto) 0.0 Abs Immat Gran (auto) 0.16 H Absolute Neuts (auto) 8.2 H Absolute Nucleated RBC 0.000 Nucleated RBC % 0.0 Sodium 137 133 L Potassium 3.8 3.8 Chloride 100 99 Carbon Dioxide 23 18 L Anion Gap 14 H 16 H BUN 94 H 100 H Creatinine 6.74 H 7.21 H Estim Creat Clear Calc 8 7 Estimated GFR 8 L 7 L Glucose 106 187 H Calcium 7.3 L 7.2 L Phosphorus 6.8 H 6.8 H Albumin 3.1 L 3.2 L Discharge Plan Discharge Attending physician on discharge: Isidoro Ambriz Consulting providers: Hanh Magaña; James Noguera Discharging Clinician: Isidoro Ambriz Anticipated Discharge Date/Time: 04/11/25 10:55 Patient Disposition: Home Activity: as tolerated Diet: as tolerated Discharge Instructions: Discharge disposition: Stable Take medications as prescribed. Stop taking the irbesartan and the Sevelamer. I will also be giving you a 2 week prescription of sodium bicarbonate and a 5 day supply of amoxicillin for a UTI. Monitor blood pressures Take caution while standing, rising, or moving Change positions slowly taking a break between each position change If you standing feel dizzy sit back down and take a break Encouraged to continue with yearly vaccinations Return to the emergency department if he developed sudden shortness of breath, chest pain, nausea, vomiting, upset stomach or intractable diarrhea Return to the emergency department if you develop fever greater than 101.5 Follow-up with the primary care physician within 1-2 weeks Thank you for [facility] for your healthcare needs Patient Instructions: Antibiotic Form Patient Language: Hebrew Stand Alone Forms: General Discharge Information Follow-up/Referrals: Hanh Magaña MD [Physician] - James Noguera MD [Physician] - UNKNOWN,DOCTOR [Primary Care Provider] - Discharge Medications: New sodium bicarbonate 650 mg tablet 650 mg PO BID 14 Days Qty: 28 0RF amoxicillin 500 mg capsule 500 mg PO Q12H 5 Days Qty: 10 0RF Continued atorvastatin 20 mg tablet 20 mg PO DAILY ropinirole 3 mg tablet 3 mg PO HS amlodipine 10 mg tablet 10 mg PO DAILY omeprazole 20 mg capsule,delayed release(DR/EC) 20 mg PO DAILY Januvia 50 mg tablet 50 mg PO DAILY Nu-Mag 71.5 mg tablet,delayed release (DR/EC) 71.5 mg PO DAILY loperamide [Anti-Diarrheal (loperamide)] 2 mg capsule 4 mg PO BID cholecalciferol (vitamin D3) 25 mcg (1,000 unit) capsule 25 mcg PO DAILY cyanocobalamin (vitamin B-12) 1,000 mcg capsule 2,000 mcg PO DAILY methylprednisolone 4 mg tablets,dose pack 4 mg PO .COMPLEX Rx Instructions: 4 mg orally dose pack; Discontinued irbesartan 75 mg tablet 75 mg PO DAILY Other Ambulatory Orders: Comprehensive Metabolic Panel (Routine) Timeframe: 5 Days Location: Determined by Patient Ordered By: Isidoro Ambriz Date of admission: 04/07/25 09:42 Primary Care Provider: UNKNOWN,DOCTOR Admitting Provider: Beto Bonner Attending physician on admission: Isidoro Ambriz Condition: Stable Quality VTE Prophylaxis VTE prophylaxis: mechanical ordered
== END 2025-04-11 12:00 | disposition home or self-care (01) | DRG 690 ==
LOC: ANHED 10:43 → ANH3MEDSUR 12:21
PROVIDERS: Internal Medicine Nephrology; Student in an Organized Health Care Education/Training Program; Admitting Provider General Practice; Emergency Provider Emergency Medicine; Visit Provider Physician Assistant
DX: N30.00 Acute cystitis without hematuria (principal); N17.9 Acute kidney failure, unspecified; E87.20 Acidosis, unspecified; K50.90 Crohn's disease, unspecified, without complications; N13.30 Unspecified hydronephrosis; N18.4 Chronic kidney disease, stage 4 (severe); B95.2 Enterococcus as the cause of diseases classified elsewhere; D63.1 Anemia in chronic kidney disease; E78.5 Hyperlipidemia, unspecified; E83.51 Hypocalcemia; E87.5 Hyperkalemia; G25.81 Restless legs syndrome; I12.9 Hypertensive chronic kidney disease with stage 1 through stage 4 chronic kidney disease, or unspecified chronic kidney disease; R73.03 Prediabetes; Z85.038 Personal history of other malignant neoplasm of large intestine; Z90.49 Acquired absence of other specified parts of digestive tract; Z90.5 Acquired absence of kidney; Z96.0 Presence of urogenital implants
CPT/HCPCS: 36415; 71045; 74176; 76775; 78707; 80048; 80053; 80069; 81001; 81050; 82550; 82570; 82607; 82728; 82746; 82948; 83540; 83550; 83735; 84156; 84300; 84540; 85025; 86704; 86706; 87086; 87181; 87340; 93005; 96374; 96375; 96376; 99285; A9270; A9562; G0378; J0612; J0692; J0696; J1815; J2405; J3475; J7030; Q5105

== ENCOUNTER 2025-05-10 09:27 | Outpatient (CLI) | payer MEDICARE, SELFPAY ==
[2025-05-10 09:58] LABS: Basophils Percent Auto 0.1 % (0.2-1.2); Hematocrit 30.9 % (42.0-52.0); Hemoglobin 9.4 g/dL (14.0-18.0); Immature Granulocyte Absolute 0.28 K/mm3 (0.00-0.031); Immature Granulocyte Percent A 1.4 % (0-0.5); Lymphocytes Absolute Auto 0.81 K/mm3 (0.9-3.2); Mean Corpuscular HGB Conc 30.4 g/dl (32-36); Mean Corpuscular Hemoglobin 27.6 pg (26-34); Mean Corpuscular Volume 90.6 fl (80-100); Mean Platelet Volume 9.7 fl (7.4-10.4); Monocytes Absolute Auto 0.8 K/mm3 (0.1-0.6); Monocytes Percent Auto 4.1 % (2.6-8.5); Neutrophils Absolute Auto 18.3 K/mm3 (1.3-6.7); Neutrophils Percent Auto 90.4 % (45.5-73.1); Platelet Count Result 359 k/mm3 (150-375); Red Blood Count 3.41 M/mm3 (4.6-6.20); Red Cell Distribution Width 16.4 % (11.5-14.5); White Blood Count 20.3 K/mm3 (4.5-10.0)
--- OUTSIDE RECORDS SUMMARY | 2025-05-10 10:27 | XMS_ITS | Clinical Summary ---
Author Organization [facility] Address [address] [place] [address] Care Team Providers Care Office Services Representative Name Role Phone Justin Avery MD Unavailable Benton Loyd MD Primary Care Provider [phone] Deng Fagan MD Unavailable Padmini Gonzalez MD Unavailable [phone] Nathaniel Merchant MD Unavailable Allergies Active Allergy [...] (06/04/2022): Added automatically from request for surgery [id number] OAB (overactive bladder) 06/04/2022 Overview (06/04/2022): Added automatically from request for surgery [id number] 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 Overview (02/15/2020): Added automatically from request for surgery [id number] Ileostomy care 09/23/2017 History of malignant neoplasm of rectum 08/18/20 14 Crohn's disease of rectum 12/07/2009 Encounters Date Type Department Care Team Description 02/09/2025 Results Follow-Up [facility] at [address] [address] Jackson Childers NP Urine culture Urine, clean voided 02/08/2025 11:26 AM CDT - 02/08/2025 11:59 PM CDT Hospital Encounter [address] [address] Cystitis with hematuria Discharge Disposition: Discharge to home or self care 02/08/2025 8:45 AM CDT Office Visit [facility] at [address] [phone] Radha Baca PA Cystitis with hematuria (Primary [...] 02/24/2018 Surgical History Surgery Date Site/Laterality Comments CA REVISION PRIOR HYPOSPADIAS REPAIR DSJ&EXC RCNSTJ Surg Penis Repair Of Hypospadias Cripple - 03/11/05 (Added by TW Conv) CA CYSTOURETHROSCOPY W/INTERNAL URETHROTOMY Cystoscopy With Internal Urethrotomy, Direct Vision - 03/30/07 (Added by TW Conv) CA CYSTOURETHROSCOPY W/STEROID INJECTION STRICTURE Cystoscopy For Urethral Stricture With Steroid Injection - 03/30/07 (Added by TW Conv) CA NJX RETROGRADE URETHROCSTOGRAPY Bladder Injection Procedure For Retrograde Cystourethrogram - 03/30/07 (Added by TW Conv) CA COLECTOMY TOT ABDL W/PROCTECTOMY W/ILEOSTOMY Total Proctocolectomy - 07/21/06 (Added by TW Conv) CA APPENDECTOMY 11/30/1964 - 11/29/1965 Appendectomy - (Added by TW Conv) CA COLCT TOT ABDL W/O PRCTECT W/ILEOST/ILEOPXTS 11/30/2005 - 11/29/2006 Total Abdominal Colectomy With Ileostomy - (Added by TW Conv) ILEOSTOMY Ileostomy Care - (Added by TW Conv) CA NEPHRECTOMY W/PRTL URETERECTOMY W/OPEN RIB RESCJ 11/30/2011 [...] on file 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 Gender Identity Not on file Sexual [...] 8:49 AM CDT Height 175.3 cm (5' 9) 12/12/2024 12:0 8 PM MACHINE SETUP OPERATOR Body Mass Index 26.29 12/12/2024 12:08 PM MACHINE SETUP OPERATOR Plan of Treatment Health Maintenance Due [...] history exists Medical Devices Implanted Type Area Body Masker Device Identifier Shelf Expiration Date Model / Serial / Lot Medtronic Inc Generator Neurostimulator Bowel Bladder Recharge Free Interstim X [id number] - [id number] Implanted:Qty: 1 on 08/13/2022 by Padmini Gonzalez MD at [facility] Neurostimulator Med[employer]onic Inc 9 [id number] / / Medtronic Inc Interstim 28cm Quadripolar Mri Turbine Subassembler Neurostimulator [id number] - Sna - [id number] Implanted:Qty: 1 on 07/30/2022 by Padmini Gonzalez MD at [facility] Other - see comments N/A: Back Medtronic Inc 12/19/2023 [id number] / NA / [id number] Description:Lower back Implant pause performed interstim Medtronic Inc Interstim 100cm Percutaneous Electrode Insulated Kit [id number] - Sna - [id number] Implanted:Qty: 1 on 07/30/2022 by Padmini Gonzalez MD at [facility] Other - see comments N/A: Back Med[employer]onic Inc 04/25/2024 [id number] / NA / [id number] Description:Lower back Implant pause performed interstim Procedures [...] current clinical standards) Comment:Testing performed by : [facility], [address] [place]., [address] Organism (CLINICALLY INSIGNIFICANT GROWTH [facility] Urine, clean voided 02/08/2025 11:26 AM CDT 02/08/2025 6:04 PM CDT Narrative JUSTINE - 02/09/2025 7:50 PM CDT Testing performed by [facility] Microbiology Laboratory ([phone]) Shante Mcclure NP LAB MICROBIOLOGY - GENERAL ORDERABLES Final Result JUSTINE [id number] Department [place] [address] * (ABNORMAL) POCT urinalysis dipstick (02/08/2025 8:47 AM CDT) Color, Urine, POC Dark Yellow Clarity, ur, POC Cloudy(A) Clear Glucose, ur, POC Negative Negative MG/DL Bilirubin, ur, POC Negative Negative, Small, Moderate, Large Ketones, ur, POC Negative Negative Specific [place], POC 1.025 1.003 - 1.030 Blood, ur, POC Large(A) Negative pH, ur, POC 5.5 5.0 - 8.0 Protein, ur, POC 300.(A) Negative Urobilinogen, urine, POC 0.2 0.2 - 1.0 mg/dL Nitrite, ur, POC Negative Negative Leukocytes, ur, POC Small(A) Negative Lot Number [id number] Urine 02/08/2025 8:47 AM CDT Shante Mcclure NP POINT OF CARE TEST ORDERAB LES Final Result from Last 3 Months Insurance T MEDICARE T MEDICARE AET MEDICARE Advance Directives For more information, please contact: [phone] Documents on File Type Date Recorded Patient Vacuum Tank Tender Expl anation ADVANCE DIRECTIVE 10/02/2020 11:54 AM [employer] * Full Code (Latest Code Status on File) Date Activated Date Inactivated Comments 08/13/2022 11:15 AM 08/14/2022 1:47 PM * Full Code Date Activated Date Inactivated Comments 11/11/2021 4:15 PM 11/11/2021 9:54 PM Care Teams Office Services Representative Relationship Specialty Start Date End Date Benton Loyd MD [address] [facility] [place] [address] [address] PCP - General Internal Medicine 08/24/20 Justin Avery MD Surgeon Colon and Rectal Surgery 10/18/19 Deng Fagan MD [address] [place] [address] [place] [address] Consulting Physician Urology 10/25/20 Padmini Gonzalez MD [address] [address] Consulting Physician Urology 11/09/22 Nathaniel Merchant MD [address] [facility] [place] [address] Consulting Physician Gastroenterology 11/09/22
--- OUTSIDE RECORDS SUMMARY | 2025-05-10 10:27 | XMS_ITS | Referral Summary ---
Author Organization [facility] Address [address] [place] [address] Care Team Providers Care Tea Plantation Worker Name Role Phone Justin Avery MD Unavailable Benton Loyd MD Primary Care Provider [phone] Deng Fagan MD Unavailable Padmini Gonzalez MD Unavailable [phone] Nathaniel Merchant MD Unavailable [phone] Encounters Date Type Department Care Team Description 02/09/2025 Results Follow-Up [facility] at [address] [address] Jackson Childers NP Urine culture Urine, clean voided 02/08/2025 11:26 AM CDT - 02/08/2025 11:59 PM CDT Hospital Encounter [address] [address] Cystitis with hematuria Discharge Disposition: Discharge to home or self care 02/08/2025 8:45 AM CDT Office Visit [facility] at [address] [address] Radha Baca PA Cystitis with hematuria (Primary [...] (06/04/2022): Added automatically from request for surgery [id number] OAB (overactive bladder) 06/04/2022 Overview (06/04/2022): Added automatically from request for surgery [id number] 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 Overview (02/15/2020): Added automatically from request for surgery [id number] Ileostomy care 09/23/2017 History of malignant neoplasm [...] on file Legal 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 Gender Identity Not on file Sexual Orientation [...] cm (5' 9) 12/12/2024 12:0 8 PM NURSE CHARGE RN Body Mass Index 26.29 12/12/2024 12:08 PM NURSE CHARGE RN Plan of Treatment Not on file Medical Devices Implanted Type Area Bobbin Trucker Device Identifier Shelf Expiration Date Model / Serial / Lot Medtronic Inc Generator Neurostimulator Bowel Bladder Recharge Free Interstim X [id number] - [id number] Implanted:Qty: 1 on 08/13/2022 by Padmini Gonzalez MD at [facility] Neurostimulator Med[employer]onic Inc 9 [id number] / / Medtronic Inc Interstim 28cm Quadripolar Mri Sales Service Route Manager Neurostimulator [id number] - Sna - [id number] Implanted:Qty: 1 on 07/30/2022 by Padmini Gonzalez MD at [facility] Other - see comments N/A: Back Med[employer]onic Inc 12/19/2023 [id number] / NA / [id number] Description:Lower back Implant pause performed interstim Medtronic Inc Interstim 100cm Percutaneous Electrode Insulated Kit [id number] - Sna - [id number] Implanted:Qty: 1 on 07/30/2022 by Padmini Gonzalez MD at [facility] Other - see comments N/A: Back [employer] Inc 04/25/2024 [id number] / NA / [id number] Description:Lower back Implant pause performed interstim Procedures [...] standards) Comment:Testing performed by : [facility], [address] [place]., [address] Organism (CLINICALLY INSIGNIFICANT GROWTH JUSTINE CARSON Urine, clean voided 02/08/2025 11:26 AM CDT 02/08/2025 6:04 PM CDT Narrative JUSTINE CARSON - 02/09/2025 7:50 PM CDT Testing performed by [facility] Microbiology Laboratory ([phone]) us Shante Mcclure NP LAB MICROBIOLOGY - GENERAL ORDERABLES Final Result JUSTINE CARSON [id number] Department [place] [address] * (ABNORMAL) POCT urinalysis dipstick (02/08/2025 8:47 AM CDT) Color, Urine, POC Dark Yellow Clarity, ur, POC Cloudy(A) Clear Glucose, ur, POC Negative Negative MG/DL Bilirubin, ur, POC Negative Negative, Small, Moderate, Large Ketones, ur, POC Negative Negative Specific [place], POC 1.025 1.003 - 1.030 Blood, ur, POC Large(A) Negative pH, ur, POC 5.5 5.0 - 8.0 Protein, ur, POC 300.(A) Negative Urobilinogen, urine, POC 0.2 0.2 - 1.0 mg/dL Nitrite, ur, POC Negative Negative Leukocytes, ur, POC Small(A) Negative Lot Number [id number] Urine 02/08/2025 8:47 AM CDT Shante Mcclure NP POINT OF CARE TEST ORDERAB LES Final Result from Last 3 Months Insurance [employer] MEDICARE [employer] MEDICARE AETNA MEDICARE Advance Directives For more information, please contact: [phone] Documents on File Type Date Recorded Patient Garnisher Expl anation ADVANCE DIRECTIVE 10/02/2020 11:54 AM [facility] [employer] * Full Code (Latest Code Status on File) Date Activated Date Inactivated Comments 08/13/2022 11:15 AM 08/14/2022 1:47 PM * Full Code Date Activated Date Inactivated Comments 11/11/2021 4:15 PM 11/11/2021 9:54 PM Care Teams Tea Plantation Worker Relationship Specialty Start Date End Date Benton Loyd MD [address] [employer] [facility] [address] [address] PCP - General Internal Medicine 08/24/20 Justin Avery MD Surgeon Colon and Rectal Surgery 10/18/19 Deng Fagan MD [address] [employer] [facility] [address] [address] Consulting Physician Urology 10/25/20 [place] [address] [place] [id number] Consulting Physician Urology 11/09/22 Nathaniel Merchant MD [address] [facility] [place] [address] Consulting Physician Gastroenterology 11/09/22
--- OUTSIDE RECORDS SUMMARY | 2025-05-10 10:28 | XMS_ITS | Patient Health Record ---
Author Organization [employer] [facility] Address [address] [place] [address] [address] Care Team Providers Care Oversize Load Pilot Escort Name Role Phone Benton Loyd Primary Care Provider Unavaila wisam Oakes MD, John Unavailable [phone] ALLERGIES No Known Allergies REASON FOR REFERRAL [...] other than malignant neoplasm (Z09) Active confirmed 373245138 Problem Primary osteoarthritis, left ankle and foot (M19.072) 06/05/20 19 Active confirmed 196275523 Problem Other meniscus derangements, other medial meniscus, right knee (M23.331) Active confirmed 924699640 Problem Other articular cartilage disorders, right shoulder (M24.111) Active confirmed 634531379 Problem Low back pain (M54.5) Active confirmed Low back pain (782465115) Problem Olecranon bursitis, right elbow (M70.21) 08/19/20 21 Active confirmed 461591011285620 Problem Impingement syndrome of right shoulder (M75.41) Active confirmed 486800294727536 Problem Other shoulder lesions, left shoulder (M75.82) Active confirmed 294801216 Problem Other specified soft tissue disorders (M79.89) Active confirmed 22334109 Problem Strain of muscle(s) and tendon(s) of the rotator cuff of right shoulder, initial encounter (S46.011A) Active confirmed 027015797 Problem Strain of muscle(s) and tendon(s) of the rotator cuff of right shoulder, subsequent encounter (S46.011D) Active confirmed 727409600 Problem Strain of muscle(s) and tendon(s) of the rotator cuff of left shoulder, initial encounter (S46.012A) Active confirmed 63379303 Problem Instability of internal left knee prosthesis, 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) Problem Activity, digging, shoveling and raking (Y93.H1) Active confirmed 589922872 Problem Aftercare following joint replacement surgery (Z47.1) Active confirmed History of musculoskeletal operation (545007415) Problem Encounter for other orthopedic aftercare (Z47.89) Active confirmed 542852701 Problem Presence of left artificial knee joint (Z96.652) Active confirmed Artificial k nee joint present (228495104866) Problem Olecranon bursitis of left elbow (M70.22) Active confirmed Inflammation of bursa of olecranon (053717879) Problem Knee pain, right (M25.561) Active confirmed Pain of right k nee region (finding) (782253511206724) Problem Localized primary osteoarthritis of left lower leg (M17.12) Active confirmed 297128448 Problem Overexertion from strenuous movement or load, initial encounter (X50.0XXA) Active confirmed 19406296 Problem Left knee pain, unspecified chronicity (M25.562) Active confirmed 91516912 Problem Right rotator cuff tendinitis (M75.81) Active confirmed 54092655323312310 Problem Encounter for removal of jerry (Z48.02) Active confirmed Removal of suture (75021913) PLAN OF TREATMENT No Information Insurance Providers Payer Name Payer Address Payer Phone Subscriber Number Group Number Insured Name Patient Relationship to Insured Coverage Start Date Coverage End Date [employer] Medicare Advantage PPO [address] [address] [place] [address] [id number] Ganesh Vásquez Self - patient is the [...]
--- OUTSIDE RECORDS SUMMARY | 2025-05-10 10:28 | XMS_ITS | Encounter Summary ---
Author Organization [facility] Address [address] [place] [address] Phone Care Team Providers Care Intern Brand Name Role Phone Justin Avery MD Unavailable [phone] Benton Loyd MD Primary Care Provider [phone] Deng Fagan MD Unavailable [phone] Padmini Gonzalez MD Unavailable [phone] Nathaniel Merchant MD Unavailable [phone] Encounter Details Date Type Department Care Team (Late st Contact Info) Description 10/01/2022 Telephone [facility] Department of Surgery, Section of Colon and Rectal Surgery [address], [place] [address] Sheyla Rhoades Social History Tobacco [...] on file Legal 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 Gender Identity Not on file Sexual Orientation Not on file documented as of this encounter Plan of Treatment Not on file documented as of this encounter Visit Diagnoses Not on filedocumented in this encounter Additional Health Concerns Infection Onset Date Last Indicated Resolved Time COVID: Suspected 12/12/2024 12/12/2024 12/12/2024 9:32 AM SOFT IRON INSPECTOR documented as of this encounter Care Teams Intern Brand Relationship Specialty Start Date End Date Benton Loyd MD [address] [facility] [address], [place] [address] PCP - General Internal Medicine 08/24/20 Justin Avery MD Surgeon Colon and Rectal Surgery 10/18/19 Deng Fagan MD [address] [facility] [address], [place] [address] Consulting Physician Urology 10/25/20 [place] [address] [place] [address] Consulting Physician Urology 11/09/22 Nathaniel Merchant MD [address] [facility] [place] [address] Consulting Physician Gastroenterology 11/09/22 documented as of this encounter
[2025-05-10 10:40] LABS: Calcium 9.9 mg/dL (8.4-10.2); Carbon Dioxide < 5 mmol/L (22-30); Estimated Glomerular Filt Rate 6; Glucose 176 mg/dL (65-110)
[2025-05-10 10:41] LABS: Chloride 103 mmol/L (98-107); Sodium 133 mmol/L (137-145)
[2025-05-10 10:42] LABS: Potassium 6.4 mmol/L (3.4-5.0)
[2025-05-10 10:43] LABS: Blood Urea Nitrogen 148 mg/dL (9-20)
== END 2025-05-10 09:28 | disposition home or self-care (01) ==
PROVIDERS: Visit Provider Urology
DX: N18.4 Chronic kidney disease, stage 4 (severe) (principal)
CPT/HCPCS: 36415; 80048; 85025

== ENCOUNTER 2025-05-10 12:23 | Inpatient (IN) | payer MEDICARE, SELFPAY ==
[2025-05-10] VITALS (9 sets, daily range): BP systolic 108–133; BP diastolic 56–70; PULSE 63–87; RESP 18–24; TEMP 36.3–36.6; O2SAT 95–100
--- NOTE | ~2025-05-10 | US_ITS ---
US soft tissue head and neck Ordering provider: Dipti Washburn PA-C History: . swelling right ear/neck region . Comparison: None. TECHNIQUE: Ultrasound evaluation of the area of concern inferior to the right ear was done. FINDINGS/impression: Echogenic Soft tissue area with vascularity is seen measuring 8.2 x 2.7 x 5 cm suggestive of a lipoma . Clinical correlation and follow-up advised. Reviewed, dictated and finalized at location A.
--- NOTE | ~2025-05-10 | CT_ITS ---
CT soft tissue neck wo con Ordering provider: Nichelle Jackson APRN History: 74 years Male with . edema/tenderness to R neck . Comparison: None. Technique: CT soft tissues neck was performed with contrast. . Automated exposure control and iterat espinoza reconstruction technique were employed. The dose-length product was 489.19 mGy-cm. Findings: LOWER HEAD: The visualized brain parenchyma, optic globes/orbits and mastoids are normal. The visua lized paranasal sinuses are well aerated. SALIVARY GLANDS: Normal. THYROID: Hypodensity in the right lobe which may be a nodule. Ultrasound evaluation advised. Otherwis e, Normal. SUPRAHYOID DEEP SPACES: Normal. CAROTID ARTERIES: Atherosclerotic changes. JUGULAR VEINS: Normal. TONSILS: Normal. ORAL CAVITY: Partially obscured by dental amalgam but normal as visualized. PHARYNX, LARYNX AND TRACHEA: Patent and normal. No prevertebral soft tissue swelling. SUPERFICIAL SOFT TISSUES: Normal. No lymphadenopathy or neck mass. THORACIC INLET/VISUALIZED UPPER CHEST: Right pleural effusion. SKELETAL: Age appropriate degenerative changes. IMPRESSION: 1. Right pleural effusion. 2. Atherosclerotic changes of the carotid arteries.Otherwise, Normal CT neck. Reviewed, dictated and finalized at location A.
--- NOTE | ~2025-05-10 | US_ITS ---
EXAMINATION: US carotid duplex BI DATE: 05/11/2025 12:41 INDICATION: Atherosclerosis. TECHNIQUE: Grayscale, color Doppler, and pulsed Doppler images of the cervical carotid arteries were obtained. The degree of vessel stenosis is placed in one of the following categories: normal, <50%, 5 0-69%, >=70% but less than near-occlusion, near-occlusion, or total occlusion. Note that percent sten osis relative to normal distal artery lumen diameter is indirectly measured from velocity measurement s as described by Channing, et al. Radiology 2003; 229:340-346. Notes: Normal: Peak systolic velocity <125 centimeters/sec and no plaque <50%. Peak systolic velocity <125 ( EDV <40; ICA/CCA PSV ratio <2.0; used these factors only a tandem lesions or low cardiac output or co ntralateral disease) 50-69 %: PSV 125-230 (EDV 40-100; ratio 2-4) >= 70% but less than near occlusion: PSV greater than 230 (EDV > 100; ratio> 4.0) Near Occlusion: PSV that is variable; markedly narrowed lumen Occlusion: Absent flow on color/spectral Doppler and no lumen on horvath scale. COMPARISON: None. FINDINGS: RIGHT: The right common carotid artery (CCA) peak systolic velocity (PSV) is 114 cm/s. The right internal ca rotid artery (ICA) PSV is 125 cm/s. The right ICA end-diastolic velocity (EDV) is 24 cm/s. The right ICA/CCA PSV ratio is 1.1. The external carotid artery (ECA) PSV is 129 cm/s. There is antegrade flow in the right vertebral artery. LEFT: The left CCA PSV is 117 cm/s. The left ICA PSV is 121 cm/s. The left ICA EDV is 28 cm/s. The left ICA /CCA PSV ratio is 1.0. The ECA PSV is 110 cm/s. There is antegrade flow in the left vertebral artery . IMPRESSION: 1. Less than 50% stenosis in the right internal carotid artery by sonographic criteria. 2. Less than 50% stenosis in the left internal carotid artery by sonographic criteria. Reviewed, dictated and finalized at location B. IMPRESSION: 1. Less than 50% stenosis in the right internal carotid artery by sonographic hunter miller. 2. Less than 50% stenosis in the left internal carotid artery by sonographic brian carrera.
--- NOTE | ~2025-05-10 | XR_ITS ---
XR chest 1V portable 05/11/2025 10:01 Indication: Pleural effusion. Procedure: AP portable chest Comparison: 04/06/2025 Findings: Bibasilar airspace disease. No significant effusion. No edema or pneumothorax. No acute oss eous abnormality. Impression: 1: Bibasilar airspace disease may represent atelectasis or pneumonia. Reviewed, dictated and finalized at location B. Impression: 1: Bibasilar airspace disease may represent atelectasis or pneumonia.
[2025-05-10] MEDS: SODIUM BICARBONATE 8.4% 50 MEQ/50 ML SYRINGE IV PUSH (13:35)
[2025-05-10] MEDS: CALCIUM GLUCONATE 1,000 MG/10 ML VIAL 1000 MG IV PUSH (13:35)
[2025-05-10] MEDS: INSULIN HUMAN REGULAR (*BKC) 100 UNITS/ML 10 UNITS IV PUSH (13:35)
[2025-05-10] MEDS: DEXTROSE 50% 25 GM/50 ML SYRINGE IV PUSH (13:35)
[2025-05-10 13:39] LABS: Glucose Point of Care 158 mg/dl (65-105)
[2025-05-10 13:45] LABS: Basophils Percent Auto 0.1 % (0.2-1.2); Hemoglobin 9.1 g/dL (14.0-18.0); Immature Granulocyte Absolute 0.25 K/mm3 (0.00-0.031); Immature Granulocyte Percent A 1.6 % (0-0.5); Lymphocytes Absolute Auto 0.54 K/mm3 (0.9-3.2); Lymphocytes Percent Auto 3.4 % (18.3-44.2); Mean Corpuscular HGB Conc 30.3 g/dl (32-36); Mean Corpuscular Hemoglobin 27.5 pg (26-34); Mean Corpuscular Volume 90.6 fl (80-100); Mean Platelet Volume 10.1 fl (7.4-10.4); Monocytes Absolute Auto 0.5 K/mm3 (0.1-0.6); Monocytes Percent Auto 3.4 % (2.6-8.5); Neutrophils Absolute Auto 14.6 K/mm3 (1.3-6.7); Neutrophils Percent Auto 91.5 % (45.5-73.1); Platelet Count Result 306 k/mm3 (150-375); Red Blood Count 3.31 M/mm3 (4.6-6.20); Red Cell Distribution Width 16.2 % (11.5-14.5)
[2025-05-10 14:04] LABS: INR 1.5
[2025-05-10 14:05] LABS: Partial Thromboplastin Time 29.5 Seconds (22.3-36.8)
--- OUTSIDE RECORDS SUMMARY | 2025-05-10 14:18 | XMS_ITS | Referral Summary ---
Author Organization [facility] Address [address] [place] [address] Care Team Providers Care Spinneret Cleaner Name Role Phone Justin Avery MD Unavailable Benton Loyd MD Primary Care Provider [phone] Deng Fagan MD Unavailable Padmini Gonzalez MD Unavailable [phone] Nathaniel Merchant MD Unavailable Encounters Date Type Department Care Team Description 02/09/2025 Results Follow-Up [facility] at [address] [address] Jackson Childers NP Urine culture Urine, clean voided 02/08/2025 11:26 AM CDT - 02/08/2025 11:59 PM CDT Hospital Encounter [address] [address] Cystitis with hematuria Discharge Disposition: Discharge to home or self care 02/08/2025 8:45 AM CDT Office Visit [facility] at [address] [address] Radha Baca PA Cystitis with [...] (06/04/2022): Added automatically from request for surgery [id number] OAB (overactive bladder) 06/04/2022 Overview (06/04/2022): Added automatically from request for surgery [id number] 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 Overview (02/15/2020): Added automatically from request for surgery [id number] Ileostomy care 09/23/2017 History of malignant neoplasm [...] on file Legal 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 Gender Identity Not on file Sexual [...] cm (5' 9) 12/12/2024 12:0 8 PM PROJECT CONTROL ANALYST Body Mass Index 26.29 12/12/2024 12:08 PM PROJECT CONTROL ANALYST Plan of Treatment Not on file Medical Devices Implanted Type Area Automatic Grinder Operator Device Identifier Shelf Expiration Date Model / Serial / Lot Medtronic Inc Generator Neurostimulator Bowel Bladder Recharge Free Interstim X [id number] - [id number] Implanted:Qty: 1 on 08/13/2022 by Padmini Gonzalez MD at [facility] Neurostimulator [employer] Inc 9 [id number] / / [employer] Interstim 28cm Quadripolar Mri Rib Chopper Neurostimulator [id number] - Sna - [id number] Implanted:Qty: 1 on 07/30/2022 by Padmini Gonzalez MD at [facility] Other - see comments N/A: Back [employer] Inc 12/19/2023 [id number] / NA / [id number] Description:Lower back Implant pause performed interstim [employer] Inc Interstim 100cm Percutaneous Electrode Insulated Kit [id number] - Sna - [id number] Implanted:Qty: 1 on 07/30/2022 by Padmini Gonzalez MD at [facility] Other - see comments N/A: Back [employer] Inc 04/25/2024 [id number] / NA / [id number] Description:Lower back Implant pause performed interstim Procedures [...] current clinical standards) Comment:Testing performed by : [facility], [address] [place]., [address] Organism (CLINICALLY INSIGNIFICANT GROWTH JUSTINE CARSON Urine, clean voided 02/08/2025 11:26 AM CDT 02/08/2025 6:04 PM CDT Narrative JUSTINE CARSON - 02/09/2025 7:50 PM CDT Testing performed by [facility] Microbiology Laboratory ([phone]) us Shante Mcclure NP LAB MICROBIOLOGY - GENERAL ORDERABLES Final Result JUSTINE CARSON [id number] Department [place] [address] * (ABNORMAL) POCT urinalysis dipstick (02/08/2025 8:47 AM CDT) Color, Urine, POC Dark Yellow Clarity, ur, POC Cloudy(A) Clear Glucose, ur, POC Negative Negative MG/DL Bilirubin, ur, POC Negative Negative, Small, Moderate, Large Ketones, ur, POC Negative Negative Specific [place], POC 1.025 1.003 - 1.030 Blood, ur, POC Large(A) Negative pH, ur, POC 5.5 5.0 - 8.0 Protein, ur, POC 300.(A) Negative Urobilinogen, urine, POC 0.2 0.2 - 1.0 mg/dL Nitrite, ur, POC Negative Negative Leukocytes, ur, POC Small(A) Negative Lot Number [id number] Urine 02/08/2025 8:47 AM CDT Shante Mcclure NP POINT OF CARE TEST ORDERAB LES Final Result from Last 3 Months Insurance [employer] MEDICARE [employer] MEDICARE AETNA MEDICARE [facility] MED[facility] Address: [address] [place] [address] Advance Directives For more information, please contact: [phone] Documents on File Type Date Recorded Patient Combine Mechanic Expl anation ADVANCE DIRECTIVE 10/02/2020 11:54 AM [employer] Age Program Teacher-Medical * Full Code (Latest Code Status on File) Date Activated Date Inactivated Comments 08/13/2022 11:15 AM 08/14/2022 1:47 PM * Full Code Date Activated Date Inactivated Comments 11/11/2021 4:15 PM 11/11/2021 9:54 PM Care Teams Spinneret Cleaner Relationship Specialty Start Date End Date Benton Loyd MD [address] [facility] [address] [address] PCP - General Internal Medicine 08/24/20 Justin Avery MD Surgeon Colon and Rectal Surgery 10/18/19 Deng Fagan MD [address] [facility] [address] [address] Consulting Physician Urology 10/25/20 [place] [address] [place] [address] Consulting Physician Urology 11/09/22 Nathaniel Merchant MD [address] [facility] [address] [place] [address] Consulting Physician Gastroenterology 11/09/22
--- OUTSIDE RECORDS SUMMARY | 2025-05-10 14:18 | XMS_ITS | Encounter Summary ---
Author Organization [facility] Address [address] [place] [address] Phone Care Team Providers Care Medical Record Retrieval Specialist Name Role Phone Justin Avery MD Unavailable [phone] Benton Loyd MD Primary Care Provider [phone] Deng Fagan MD Unavailable [phone] Padmini Gonzalez MD Unavailable [phone] Nathaniel Merchant MD Unavailable [phone] Encounter Details Date Type Department Care Team (Late st Contact Info) Description 10/01/2022 Telephone [facility] Department of Surgery, Section of Colon and Rectal Surgery [address] [facility] [address] 12th [address], [place] [address] Sheyla Rhoades Social History Tobacco [...] on file 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 Gender Identity Not on file Sexual Orientation Not on file documented as of this encounter Plan of Treatment Not on file documented as of this encounter Visit Diagnoses Not on filedocumented in this encounter Additional Health Concerns Infection Onset Date Last Indicated Resolved Time COVID: Suspected 12/12/2024 12/12/2024 12/12/2024 9:32 AM CORNER BLOCK CUTTER documented as of this encounter Care Teams Medical Record Retrieval Specialist Relationship Specialty Start Date End Date Benton Loyd MD [address] [facility] [address] [address] PCP - General Internal Medicine 08/24/20 Justin Avery MD Surgeon Colon and Rectal Surgery 10/18/19 Deng Fagan MD [address] [facility] [address] [address] Consulting Physician Urology 10/25/20 [place] [address] [place] [address] Consulting Physician Urology 11/09/22 Nathaniel Merchant MD [address] [facility] [place] [address] Consulting Physician Gastroenterology 11/09/22 documented as of this encounter
--- OUTSIDE RECORDS SUMMARY | 2025-05-10 14:18 | XMS_ITS | Clinical Summary ---
Author Organization [facility] Address [address] [place] [address] Care Team Providers Care Didactic Instructor Name Role Phone Justin Avery MD Unavailable [phone] Benton Loyd MD Primary Care Provider [phone] Deng Fagan MD Unavailable Padmini Gonzalez MD Unavailable [phone] Nathaniel Merchant MD Unavailable [phone] Allergies Active Allergy Reactions Criticality Noted Date [...] (06/04/2022): Added automatically from request for surgery [id number] OAB (overactive bladder) 06/04/2022 Overview (06/04/2022): Added automatically from request for surgery [id number] 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 at [address] [address] Jackson Childers NP Urine culture Urine, clean voided 02/08/2025 11:26 AM CDT - 02/08/2025 11:59 PM CDT Hospital Encounter [address] [address] Cystitis with hematuria Discharge Disposition: Discharge to home or self care 02/08/2025 8:45 AM CDT Office Visit [facility] at [address] [address] Radha Baca PA Cystitis with hematuria (Primary [...] on file Legal Sex Male 4:34 PM DIRECTOR OF BANDS Gender Identity Not on file Sexual Orientation [...] cm (5' 9) 12/12/2024 12:0 8 PM DIRECTOR OF BANDS Body Mass Index 26.29 12/12/2024 12:08 PM DIRECTOR OF BANDS Plan of Treatment Health Maintenance Due Date [...] history exists Medical Devices Implanted Type Area Rivet Heater Device Identifier Shelf Expiration Date Model / Serial / Lot Medtronic Inc Generator Neurostimulator Bowel Bladder Recharge Free Interstim X [id number] - [id number] Implanted:Qty: 1 on 08/13/2022 by Padmini Gonzalez MD at [facility] Neurostimulator [employer] Inc 9 7800 / / [employer] Inc Interstim 28cm Quadripolar Mri Student Support Advisor Neurostimulator [id number] - Sna - [id number] Implanted:Qty: 1 on 07/30/2022 by Padmini Gonzalez MD at [facility] Other - see comments N/A: Back [employer] Inc 12/19/2023 [id number] / NA / [id number] Description:Lower back Implant pause performed interstim [employer] Inc Interstim 100cm Percutaneous Electrode Insulated Kit [id number] - Sna - [id number] Implanted:Qty: 1 on 07/30/2022 by Padmini Gonzalez MD at [facility] Other - see comments N/A: Back [employer] Inc 04/25/2024 [id number] / NA / [id number] Description:Lower back Implant pause performed interstim Procedures [...] by : [facility], [address] [place]., [address] Organism (CLINICALLY INSIGNIFIC[facility] Urine, clean voided 02/08/2025 11:26 AM CDT 02/08/2025 6:04 PM CDT Narrative JUSTINE - 02/09/2025 7:50 PM CDT Testing performed by [facility] Microbiology Laboratory ([phone]) Shante Mcclure NP LAB MICROBIOLOGY - GENERAL ORDERABLES Final Result JUSTINE [address] Department [place] [address] * (ABNORMAL) POCT urinalysis dipstick (02/08/2025 8:47 AM CDT) Color, Urine, POC Dark Yellow Clarity, ur, POC Cloudy(A) Clear Glucose, ur, POC Negative Negative MG/DL Bilirubin, ur, POC Negative Negative, Small, Moderate, Large Ketones, ur, POC Negative Negative Specific [place], POC 1.025 1.003 - 1.030 Blood, ur, POC Large(A) Negative pH, ur, POC 5.5 5.0 - 8.0 Protein, ur, POC 300.(A) Negative Urobilinogen, urine, POC 0.2 0.2 - 1.0 mg/dL Nitrite, ur, POC Negative Negative Leukocytes, ur, POC Small(A) Negative Lot Number [id number] Urine 02/08/2025 8:47 AM CDT Shante Mcclure NP POINT OF CARE TEST ORDERAB LES Final Result from Last 3 Months Insurance T MEDICARE T MEDICARE AET MEDICARE Advance Directives For more information, please contact: [phone] Documents on File Type Date Recorded Patient Communications Assistant Expl anation ADVANCE DIRECTIVE 10/02/2020 11:54 AM Marcos r of Project Intern-Medical * Full Code (Latest Code Status on File) Date Activated Date Inactivated Comments 08/13/2022 11:15 AM 08/14/2022 1:47 PM * Full Code Date Activated Date Inactivated Comments 11/11/2021 4:15 PM 11/11/2021 9:54 PM Care Teams Didactic Instructor Relationship Specialty Start Date End Date Benton Loyd MD [address] [facility] [address] [address], [place] [address] PCP - General Internal Medicine 08/24/20 Justin Avery MD Surgeon Colon and Rectal Surgery 10/18/19 Deng Fagan MD [address] [place] [address], [place] [address] Consulting Physician Urology 10/25/20 Padmini Gonzalez MD [address] [address] Consulting Physician Urology 11/09/22 Nathaniel Merchant MD [address] [facility] [place] [address] Consulting Physician Gastroenterology 11/09/22
--- NOTE | 2025-05-10 14:30 | ED_ITS ---
HPI - General Adult General Chief complaint: Recheck/Abnormal Lab/Rx Stated complaint: UTI AND ELEVATED POTASSIUM Time Seen by Provider: 05/10/25 12:44 History of Present Illness HPI narrative: Patient is a 74-year-old male who presents ER with a bruise below patient lobes. He was referred here by Urology. Patient apparently has a creatinine of 10 and a potassium of 6. Patient has history of chronic kidney disease. Reports he has been urinating. No fevers or chills. Also recently diagnosed with UTI. Amoxicillin prescribed today. 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 Related Data Home Medications ?Medication ?Instructions ?Recorded ?Confirmed ?Last Taken ?Type amlodipine 10 mg tablet 10 mg PO DAILY 11/28/19 05/10/25 05/10/25 History atorvastatin 20 mg tablet 20 mg PO DAILY 11/28/19 05/10/25 05/10/25 History magnesium chloride 71.5 mg 71.5 mg PO DAILY 11/28/19 05/10/25 05/10/25 History (magnesium chloride) tablet,delayed release (Nu-Mag) omeprazole 20 mg capsule,delayed 20 mg PO DAILY 11/28/19 05/10/25 05/10/25 History release ropinirole 3 mg tablet 3 mg PO HS 11/28/19 05/10/25 05/09/25 History sitagliptin phosphate 50 mg tablet 50 mg PO DAILY 11/28/19 05/10/25 05/10/25 History (Januvia) cholecalciferol (vitamin D3) 25 25 mcg PO DAILY 02/18/25 05/10/25 05/10/25 History mcg (1,000 unit) capsule cyanocobalamin (vitamin B-12) 2,000 mcg PO DAILY 02/18/25 05/10/25 05/10/25 History 1,000 mcg capsule loperamide 2 mg capsule 4 mg PO BID 02/27/25 05/10/25 05/10/25 History (Anti-Diarrheal (loperamide)) sulfamethoxazole 800 1 tablet PO HS 05/10/25 05/10/25 05/10/25 History mg-trimethoprim 160 mg tablet (Bactrim DS) Allergies Allergy/AdvReac Type Severity Reaction Status Date / Time No Known Allergies Allergy Verified 05/10/25 12:29 Review of Systems 2 Review of Systems: All systems reviewed & are unremarkable except as noted in HPI and below Constitutional: Constitutional: Reports no additional constitutional complaints ENT: Reports system reviewed and no additional complaints, except as documented Cardiovascular: Cardiovascular: Reports no additional cardiovascular complaints Respiratory: Respiratory: Reports no additional respiratory complaints Genitourinary: Genitourinary: Reports no additional male genitourinary complaints [facility] Past Medical History Medical History Prediabetes A1C 6.3 % 02/18/25 Chronic kidney disease 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 Code status: Full code. Smoking status: Never smoker Second hand tobacco smoke exposure: No Alcohol intake: current Drinks per week: 2 Substance use: never Substance use type: does not use Do You Feel Safe in your Home?: Yes Lack of Transportation: YES Lack of Food: Never True Current Housing: I Have Housing Concerned About Future Housing: No Difficulty Paying Gas/Electric Bills: No Difficulty Paying for Meds: No Currently Unemployed: No Education: Master's Degree or Higher Difficulty w/ Childcare or Family Care: No Living arrangements: with family Additional living arrangements comments: Lives with spouse in [place]. 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: No Exam 2 Narrative: GENERAL: Chronically ill-appearing, well-nourished, and in no acute distress. HEAD: Normocephalic, atraumatic. ENT: Mucous membranes moist. NECK: Supple. CHEST: Clear to auscultation. No respiratory distress. HEART: Regular rate and rhythm. Normal peripheral pulses. ABDOMEN: Soft, nontender, nondistended. EXTREMITIES: Normal range of motion. No edema. SKIN: Warm, dry, no rash. NEURO: Alert and oriented x3. PSYCH: Normal mood and affect. Course Course Emergency Course: Patient medically treated for hyperkalemia. He is receiving IV fluid. Admit to hospitalist service. Nephrology consulted. Rhythm strip without wide QRS. Vital Signs Vital signs: Vital Signs Temperature 97.6 F 05/10/25 12:27 Pulse Rate 84 05/10/25 12:27 Respiratory Rate 20 05/10/25 12:27 Blood Pressure 108/64 05/10/25 12:27 Pulse Oximetry 100 05/10/25 12:27 Oxygen Delivery Room Air 05/10/25 12:27 Temperature 97.9 F 05/10/25 12:41 Pulse Rate 78 05/10/25 16:38 Respiratory Rate 18 05/10/25 16:38 Blood Pressure 133/59 L 05/10/25 16:38 Pulse Oximetry 98 05/10/25 16:38 Oxygen Delivery Room Air 05/10/25 12:27 Medical Decision Making Vital Signs Vital Signs: Vital Signs Temperature 97.6 F 05/10/25 12:27 Pulse Rate 84 05/10/25 12:27 Respiratory Rate 20 05/10/25 12:27 Blood Pressure 108/64 05/10/25 12:27 Pulse Oximetry 100 05/10/25 12:27 Oxygen Delivery Room Air 05/10/25 12:27 Temperature 97.9 F 05/10/25 12:41 Pulse Rate 78 05/10/25 16:38 Respiratory Rate 18 05/10/25 16:38 Blood Pressure 133/59 L 05/10/25 16:38 Pulse Oximetry 98 05/10/25 16:38 Oxygen Delivery Room Air 05/10/25 12:27 Lab Data 05/10/25 13:26 05/10/25 13:26 Labs: Lab Results 05/10/25 05/10/25 05/10/25 Range/Units 13:26 13:38 14:05 WBC 16.0 H (4.5-10.0) K/mm3 RBC 3.31 L (4.6-6.20) M/mm3 Hgb 9.1 L (14.0-18.0) g/dL Hct 30.0 L (42.0-52.0) % MCV 90.6 (80-100) fl MCH 27.5 (26-34) pg MCHC 30.3 L (32-36) g/dl RDW 16.2 H (11.5-14.5) % Plt Count 306 (150-375) k/mm3 MPV 10.1 (7.4-10.4) fl Immature Gran % (Auto) 1.6 H (0-0.5) % Neut % (Auto) 91.5 H (45.5-73.1) % Lymph % (Auto) 3.4 L (18.3-44.2) % [place] % (Auto) 3.4 (2.6-8.5) % Eos % (Auto) 0.0 (0-4.4) % Baso % (Auto) 0.1 L (0.2-1.2) % Lymph # (Auto) 0.54 L (0.9-3.2) K/mm3 [place] # (Auto) 0.5 (0.1-0.6) K/mm3 Eos # (Auto) 0.0 (0-0.3) K/mm3 Baso # (Auto) 0.0 (0.0-0.1) K/mm3 Abs Immat Gran (auto) 0.25 H (0.00-0.031) K/mm3 Absolute Neuts (auto) 14.6 H (1.3-6.7) K/mm3 Absolute Nucleated RBC 0.000 (0.0-0.012) K/mm3 Nucleated RBC % 0.0 (0.0-0.2) % PT 18.0 H (11.1-14.7) Seconds INR 1.5 APTT 29.5 (22.3-36.8) Seconds Sodium 132 L (137-145) mmol/L Potassium 6.0 H* (3.4-5.0) mmol/L Chloride 102 (98-107) mmol/L Carbon Dioxide < 5 L (22-30) mmol/L Anion Gap (4-12) mmol/L BUN 147 H* (9-20) mg/dL Creatinine 8.20 H (0.7-1.3) mg/dL Estim Creat Clear Calc 6 ml/min Estimated GFR 6 L (59 - ) Glucose 179 H (65-110) mg/dL POC Capillary Glucose 158 H (65-105) mg/dl Lactic Acid 2.5 H (0.7-2.0) mmol/L Calcium 9.3 (8.4-10.2) mg/dL Total Bilirubin 0.4 (0.2-1.3) mg/dL AST 32 (17-59) U/L ALT 73 H (6-50) U/L Alkaline Phosphatase 157 H (38-126) U/L Total Protein 9.0 H (6.3-8.2) g/dL Albumin 3.8 (3.5-5.1) g/dL Urine Color (Yellow) Urine Appearance (Clear) Urine pH (5.0-9.0) Ur Specific [place] (1.001-1.035) Urine Protein (Negative) mg/dL Urine Glucose (UA) (Negative) mg/dL Urine Ketones (Negative) mg/dL Ur Blood (Man) (Negative) Urine Nitrate (Negative) Urine Bilirubin (Negative) Urine Urobilinogen (<2.0) mg/dL Leukocyte Esterase Rfl (Negative) JULISSA/UL Urine RBC (0-2) /hpf Urine WBC (0-3) /hpf Ur Squamous Epith Cells (Few) /hpf Urine Bacteria /hpf Urine Casts 05/10/25 Range/Units 14:54 WBC (4.5-10.0) K/mm3 RBC (4.6-6.20) M/mm3 Hgb (14.0-18.0) g/dL Hct (42.0-52.0) % MCV (80-100) fl MCH (26-34) pg MCHC (32-36) g/dl RDW (11.5-14.5) % Plt Count (150-375) k/mm3 MPV (7.4-10.4) fl Immature Gran % (Auto) (0-0.5) % Neut % (Auto) (45.5-73.1) % Lymph % (Auto) (18.3-44.2) % [place] % (Auto) (2.6-8.5) % Eos % (Auto) (0-4.4) % Baso % (Auto) (0.2-1.2) % Lymph # (Auto) (0.9-3.2) K/mm3 [place] # (Auto) (0.1-0.6) K/mm3 Eos # (Auto) (0-0.3) K/mm3 Baso # (Auto) (0.0-0.1) K/mm3 Abs Immat Gran (auto) (0.00-0.031) K/mm3 Absolute Neuts (auto) (1.3-6.7) K/mm3 Absolute Nucleated RBC (0.0-0.012) K/mm3 Nucleated RBC % (0.0-0.2) % PT (11.1-14.7) Seconds INR APTT (22.3-36.8) Seconds Sodium (137-145) mmol/L Potassium (3.4-5.0) mmol/L Chloride (98-107) mmol/L Carbon Dioxide (22-30) mmol/L Anion Gap (4-12) mmol/L BUN (9-20) mg/dL Creatinine (0.7-1.3) mg/dL Estim Creat Clear Calc ml/min Estimated GFR (59 - ) Glucose (65-110) mg/dL POC Capillary Glucose (65-105) mg/dl Lactic Acid (0.7-2.0) mmol/L Calcium (8.4-10.2) mg/dL Total Bilirubin (0.2-1.3) mg/dL AST (17-59) U/L ALT (6-50) U/L Alkaline Phosphatase (38-126) U/L Total Protein (6.3-8.2) g/dL Albumin (3.5-5.1) g/dL Urine Color Yellow (Yellow) Urine Appearance Turbid H (Clear) Urine pH 5.5 (5.0-9.0) Ur Specific [place] 1.013 (1.001-1.035) Urine Protein 3+ H (Negative) mg/dL Urine Glucose (UA) Negative (Negative) mg/dL Urine Ketones Negative (Negative) mg/dL Ur Blood (Man) 3+ H (Negative) Urine Nitrate Negative (Negative) Urine Bilirubin Negative (Negative) Urine Urobilinogen 0.2 (<2.0) mg/dL Leukocyte Esterase Rfl 3+ H (Negative) JULISSA/UL Urine RBC >100 H (0-2) /hpf Urine WBC >100 H (0-3) /hpf Ur Squamous Epith Cells None seen (Few) /hpf Urine Bacteria 4+ H /hpf Urine Casts 0-2 Critical Care Time Critical Care Time Critical Care Time: Yes Total Critical Care Time: 40 Discharge Plan Discharge Clinical Impression: Hyperkalemia, UTI (urinary tract infection), Uremia, Chronic renal failure Patient Disposition: Still a Patient Condition: Stable
[2025-05-10] MEDS: SODIUM CHLORIDE 0.9% IV 1,000 ML 999 ML IV CONT (14:32)
[2025-05-10 14:39] LABS: Lactic Acid Reflex 2.5 mmol/L (0.7-2.0)
[2025-05-10 14:53] LABS: Alanine Aminotransferase 73 U/L (6-50); Albumin Level 3.8 g/dL (3.5-5.1); Alkaline Phosphatase 157 U/L (38-126); Aspartate Amino Transferase 32 U/L (17-59); Bilirubin,Total 0.4 mg/dL (0.2-1.3); Calcium 9.3 mg/dL (8.4-10.2); Carbon Dioxide < 5 mmol/L (22-30); Chloride 102 mmol/L (98-107); Estimated CRCL calculation 6 ml/min; Estimated Glomerular Filt Rate 6; Glucose 179 mg/dL (65-110); Sodium 132 mmol/L (137-145)
[2025-05-10 14:57] LABS: Blood Urea Nitrogen 147 mg/dL (9-20)
[2025-05-10 15:13] LABS: Bacteria Urine 4+ /hpf; Non Pathogenic Casts 0-2; RBC Urine >100 /hpf (0-2); Squamous Epithelial Cell Urine None Seen /hpf (Few); WBC Urine >100 /hpf (0-3)
[2025-05-10 15:30] LABS: Add Urine Microscopic? YES; Appearance Urine Turbid (Clear); Bilirubin Urine Negative (Negative); Blood Urine 3+ (Negative); Color Urine Yellow (Yellow); Glucose Urine UA Negative (Negative); Ketones Urine Negative (Negative); Leukocyte Esterase Ur 3+ LEU/UL (Negative); Nitrate Urine Negative (Negative); Protein Urine 3+ mg/dL (Negative); Specific Grav Ur 1.013 (1.001-1.035); Urobilinogen Urine 0.2 mg/dL (<2.0); pH Urine 5.5 (5.0-9.0)
--- OUTSIDE RECORDS SUMMARY | 2025-05-10 15:43 | XMS_ITS | Referral Summary ---
Author Organization [facility] Address [address] [place] [address] Care Team Providers Care Construction Economist Name Role Phone Justin Avery MD Unavailable [phone] Benton Loyd MD Primary Care Provider [phone] Deng Fagan MD Unavailable Padmini Gonzalez MD Unavailable [phone] Nathaniel Merchant MD Unavailable [phone] Encounters Date Type Department Care Team Description 02/09/2025 Results Follow-Up [facility] at [address] [address] Jackson Childers NP Urine culture Urine, clean voided 02/08/2025 11:26 AM CDT - 02/08/2025 11:59 PM CDT Hospital Encounter [address] [address] Cystitis with hematuria Discharge Disposition: Discharge to home or self care 02/08/2025 8:45 AM CDT Office Visit [facility] at [address] [address] Radha Baca PA Cystitis with [...] (06/04/2022): Added automatically from request for surgery [id number] OAB (overactive bladder) 06/04/2022 Overview (06/04/2022): Added automatically from request for surgery [id number] 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 Overview (02/15/2020): Added automatically from request for surgery [id number] Ileostomy care 09/23/2017 History of malignant neoplasm [...] on file 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 Gender Identity Not on file Sexual Orientation [...] cm (5' 9) 12/12/2024 12:0 8 PM [employer] Body Mass Index 26.29 12/12/2024 12:08 PM [employer] Plan of Treatment Not on file Medical Devices Implanted Type Area Equipment Service Lead Device Identifier Shelf Expiration Date Model / Serial / Lot Medtronic Inc Generator Neurostimulator Bowel Bladder Recharge Free Interstim X [id number] - [id number] Implanted:Qty: 1 on 08/13/2022 by Padmini Gonzalez MD at [facility] Neurostimulator [employer] Inc [id number] / / Med[employer] Interstim 28cm Quadripolar Mri Director Of Public Health Neurostimulator [id number] - Sna - [id number] Implanted:Qty: 1 on 07/30/2022 by Padmini Gonzalez MD at [facility] Other - see comments N/A: Back Medtronic Inc 12/19/2023 [id number] / NA / [id number] Description:Lower back Implant pause performed interstim Medtronic Inc Interstim 100cm Percutaneous Electrode Insulated Kit [id number] - Sna - [id number] Implanted:Qty: 1 on 07/30/2022 by Padmini Gonzalez MD at [facility] Other - see comments N/A: Back Med[employer] Inc 04/25/2024 [id number] / NA / [id number] Description:Lower back Implant pause performed interstim Procedures [...] Comment:Testing performed by : [facility], [address] [place]., [address] Organism (CLINICALLY INSIGNIFICANT GROWTH JUSTINE CARSON Urine, clean voided 02/08/2025 11:26 AM CDT 02/08/2025 6:04 PM CDT Narrative JUSTINE CARSON - 02/09/2025 7:50 PM CDT Testing performed by [facility] ([phone]) us Shante Mcclure NP LAB MICROBIOLOGY - GENERAL ORDERABLES Final Result JUSTINE CARSON [id number] Department [place] [address] * (ABNORMAL) POCT urinalysis dipstick (02/08/2025 8:47 AM CDT) Color, Urine, POC Dark Yellow Clarity, ur, POC Cloudy(A) Clear Glucose, ur, POC Negative Negative MG/DL Bilirubin, ur, POC Negative Negative, Small, Moderate, Large Ketones, ur, POC Negative Negative Specific [place], POC 1.025 1.003 - 1.030 Blood, ur, POC Large(A) Negative pH, ur, POC 5.5 5.0 - 8.0 Protein, ur, POC 300.(A) Negative Urobilinogen, urine, POC 0.2 0.2 - 1.0 mg/dL Nitrite, ur, POC Negative Negative Leukocytes, ur, POC Small(A) Negative Lot Number [id number] Urine 02/08/2025 8:47 AM CDT Shante Mcclure NP POINT OF CARE TEST ORDERAB LES Final Result from Last 3 Months Insurance [employer] MEDICARE Software 2000 MEDICARE AETNA MEDICARE [facility] MED[facility] Address: [address] [place] [address] Advance Directives For more information, please contact: [phone] Documents on File Type Date Recorded Patient Rack Room Worker Expl anation ADVANCE DIRECTIVE 10/02/2020 11:54 AM Marcos r of Water Resources Program Director-Medical * Full Code (Latest Code Status on File) Date Activated Date Inactivated Comments 08/13/2022 11:15 AM 08/14/2022 1:47 PM * Full Code Date Activated Date Inactivated Comments 11/11/2021 4:15 PM 11/11/2021 9:54 PM Care Teams Construction Economist Relationship Specialty Start Date End Date Benton Loyd MD [address] [employer] [facility] [address] [address] PCP - General Internal Medicine 08/24/20 Justin Avery MD Surgeon Colon and Rectal Surgery 10/18/19 Deng Fagan MD [address] [facility] [address] [address] Consulting Physician Urology 10/25/20 [place] [address] [place] [address] Consulting Physician Urology 11/09/22 Nathaniel Merchant MD [address] [facility] [address] [place] [address] Consulting Physician Gastroenterology 11/09/22
--- OUTSIDE RECORDS SUMMARY | 2025-05-10 15:43 | XMS_ITS | Clinical Summary ---
Author Organization [facility] Address [address] [place] [address] Care Team Providers Care Shirt Finisher Name Role Phone Justin Avery MD Unavailable [phone] Benton Loyd MD Primary Care Provider [phone] Deng Fagan MD Unavailable Padmini Gonzalez MD Unavailable [phone] Nathaniel Merchant MD Unavailable Allergies Active Allergy [...] (06/04/2022): Added automatically from request for surgery [id number] OAB (overactive bladder) 06/04/2022 Overview (06/04/2022): Added automatically from request for surgery [id number] 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 Overview (02/15/2020): Added automatically from request for surgery [id number] Ileostomy care 09/23/2017 History of malignant neoplasm of rectum 08/18/20 14 Crohn's disease of rectum 12/07/2009 Encounters Date Type Department Care Team Description 02/09/2025 Results Follow-Up [facility] at [address] [address] Jackson Childers NP Urine culture Urine, clean voided 02/08/2025 11:26 AM CDT - 02/08/2025 11:59 PM CDT Hospital Encounter [address] [address] Cystitis with hematuria Discharge Disposition: Discharge to home or self care 02/08/2025 8:45 AM CDT Office Visit [facility] at [address] [address] Rahda Baca PA Cystitis with hematuria (Primary Dx) [...] 02/24/2018 Surgical History Surgery Date Site/Laterality Comments [place] REVISION PRIOR HYPOSPADIAS REPAIR DSJ&EXC RCNSTJ Surg Penis Repair Of Hypospadias Cripple - 03/11/05 (Added by TW Conv) TX CYSTOURETHROSCOPY W/INTERNAL URETHROTOMY Cystoscopy With Internal Urethrotomy, Direct Vision - 03/30/07 (Added by TW Conv) TX CYSTOURETHROSCOPY W/STEROID INJECTION STRICTURE Cystoscopy For Urethral Stricture With Steroid Injection - 03/30/07 (Added by TW Conv) TX NJX RETROGRADE URETHROCSTOGRAPY Bladder Injection Procedure For Retrograde Cystourethrogram - 03/30/07 (Added by TW Conv) TX COLECTOMY TOT ABDL W/PROCTECTOMY W/ILEOSTOMY Total Proctocolectomy - 07/21/06 (Added by TW Conv) TX APPENDECTOMY 11/30/1964 - 11/29/1965 Appendectomy - (Added by TW Conv) TX COLCT TOT ABDL W/O PRCTECT W/ILEOST/ILEOPXTS 11/30/2005 - 11/29/2006 Total Abdominal Colectomy With Ileostomy - (Added by TW Conv) ILEOSTOMY Ileostomy Care - (Added by TW Conv) TX NEPHRECTOMY W/PRTL URETERECTOMY W/OPEN RIB RESCJ 11/30/2011 [...] on file 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 Gender Identity Not on file Sexual Orientation [...] cm (5' 9) 12/12/2024 12:0 8 PM HEAD TENNIS COACH Body Mass Index 26.29 12/12/2024 12:08 PM HEAD TENNIS COACH Plan of Treatment Health Maintenance Due Date [...] history exists Medical Devices Implanted Type Area Backup Administrative Coordinator Device Identifier Shelf Expiration Date Model / Serial / Lot Medtronic Inc Generator Neurostimulator Bowel Bladder Recharge [place]stim [place] [id number] - [id number] Implanted:Qty: 1 on 08/13/2022 by Padmini Gonzalez MD at [facility] Neurostimulator Med[employer]onic Inc 9 [id number] / / Medtronic Inc Interstim 28cm Quadripolar Mri Chro Neurostimulator [id number] - Sna - [id number] Implanted:Qty: 1 on 07/30/2022 by Padmini Gonzalez MD at [facility] Other - see comments N/A: Back Medtronic Inc 12/19/2023 [id number] / NA / [id number] Description:Lower back Implant pause performed interstim Medtronic Inc Interstim 100cm Percutaneous Electrode Insulated Kit [id number] - Sna - [id number] Implanted:Qty: 1 on 07/30/2022 by Padmini Gonzalez MD at [facility] Other - see comments N/A: Back Med[employer] Inc 04/25/2024 [id number] / NA / [id number] Description:Lower back Implant pause performed interstim Procedures [...] current clinical standards) Comment:Testing performed by : [facility], [address] [place]., [address] Organism ([facility] Urine, clean voided 02/08/2025 11:26 AM CDT 02/08/2025 6:04 PM CDT Narrative JUSTINE - 02/09/2025 7:50 PM CDT Testing performed by [facility] Microbiology Laboratory ([phone]) Shante Mcclure NP LAB MICROBIOLOGY - GENERAL ORDERABLES Final Result JUSTINE [id number] Department [place] [address] * (ABNORMAL) POCT urinalysis dipstick (02/08/2025 8:47 AM CDT) Color, Urine, POC Dark Yellow Clarity, ur, POC Cloudy(A) Clear Glucose, ur, POC Negative Negative MG/DL Bilirubin, ur, POC Negative Negative, Small, Moderate, Large Ketones, ur, POC Negative Negative Specific [place], POC 1.025 1.003 - 1.030 Blood, ur, POC Large(A) Negative pH, ur, POC 5.5 5.0 - 8.0 Protein, ur, POC 300.(A) Negative Urobilinogen, urine, POC 0.2 0.2 - 1.0 mg/dL Nitrite, ur, POC Negative Negative Leukocytes, ur, POC Small(A) Negative Lot Number [id number] Urine 02/08/2025 8:47 AM CDT Shante Mcclure NP POINT OF CARE TEST ORDERAB LES Final Result from Last 3 Months Insurance T MEDICARE T MEDICARE AET MEDICARE Advance Directives For more information, please contact: [phone] Documents on File Type Date Recorded Patient Reservoir Engineer Expl anation ADVANCE DIRECTIVE 10/02/2020 11:54 AM Marcos r of Water Technician-Medical * Full Code (Latest Code Status on File) Date Activated Date Inactivated Comments 08/13/2022 11:15 AM 08/14/2022 1:47 PM * Full Code Date Activated Date Inactivated Comments 11/11/2021 4:15 PM 11/11/2021 9:54 PM Care Teams Shirt Finisher Relationship Specialty Start Date End Date Benton Loyd MD [address] [facility] [address], [place] [address] PCP - General Internal Medicine 08/24/20 Justin Avery MD Surgeon Colon and Rectal Surgery 10/18/19 Deng Fagan MD [address] [place] [address], [place] [address] Consulting Physician Urology 10/25/20 Padmini Gonzalez MD [address] [address] Consulting Physician Urology 11/09/22 Nathaniel Merchant MD 1 [facility] [place] [address] Consulting Physician Gastroenterology 11/09/22
--- OUTSIDE RECORDS SUMMARY | 2025-05-10 15:43 | XMS_ITS | Encounter Summary ---
Author Organization [facility] Address [address] [place] [address] Phone Care Team Providers Care Chief Sales Officer Name Role Phone Justin Avery MD Unavailable [phone] Benton Loyd MD Primary Care Provider [phone] Deng Fagan MD Unavailable [phone] Padmini Gonzalez MD Unavailable [phone] Nathaniel Merchant MD Unavailable [phone] Encounter Details Date Type Department Care Team (Late st Contact Info) Description 10/01/2022 Telephone 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 Gender Identity Not on file Sexual Orientation Not on file documented as of this encounter Plan of Treatment Not on file documented as of this encounter Visit Diagnoses Not on filedocumented in this encounter Additional Health Concerns Infection Onset Date Last Indicated Resolved Time COVID: Suspected 12/12/2024 12/12/2024 12/12/2024 9:32 AM TELEHEALTH NURSE documented as of this encounter Care Teams Chief Sales Officer Relationship Specialty Start Date End Date Benton Loyd MD [address] [facility] [address], [place] [address] PCP - General Internal Medicine 08/24/20 Justin Avery MD Surgeon Colon and Rectal Surgery 10/18/19 Deng Fagan MD [address] [facility] [address], [place] [address] Consulting Physician Urology 10/25/20 [place] [address] [place] [address] Consulting Physician Urology 11/09/22 Nathaniel Merchant MD 1 [facility] [place] [address] Consulting Physician Gastroenterology 11/09/22 documented as of this encounter
[2025-05-10 16:08] LABS: Reflex Lactic Acid Yes or No Add Lactic
--- NOTE | 2025-05-10 16:41 | PM.IMHP ---
H&P: HPI History of Present Illness Date/Time: 05/10/25 16:41 Chief Complaint: Abnormal Labs, UTI Narrative: 74 y/o M with PMH of CKD, carcinoma of colorectal region (s/p radiation, total colectomy, and partial small-bowel resection), HTN, RLS, HLD, Crohn's disease, kidney stones, nephrectomy (left, 2012), borderline diabetic (controlled with Januvia and diet), hypospadia S/P surgery x3 presents here with hyperkalemia and UTI. The patient presents here from home for further evaluation of hyperkalemia and UTI. He reports a follow-up appointment with his urologist, Dr. Noguera. He had routine lab work performed which showed a potassium of 6.4 and UA was concerning for a UTI. The patient has a recent history of recurrent renal failure, UTIs, and hyperkalemia. Most recently admitted from 04/06/25-04/11/25 for same. ARF at that time was felt to be multifactorial including possible volume depletion, chronic urinary obstruction, UTI. Hyperkalemia felt to be secondary to MERI and ARB use. He was treated with antibiotics, IV fluids, bicarb, and Lokelma. Dialysis was initially discussed with the patient early in his admission, however due to improvement hemodialysis was not started. He was discharged on 04/11 with a creatinine of 6.45 and GFR of 8 at the patient's insistence as he can follow with Urology and Nephrology outpatient. He was given amoxicillin to complete his antibiotic course. Urine culture from this visit grew Enterococcus which was susceptible to Ampicillin, Vancomycin, and Macrobid. Today he is reporting reduced appetite and has been only in-taking fluids which has caused looser stools from his ostomy, reporting 25 lbs of weight loss since February of 2025, nausea without vomiting. Denies abdominal pain, suprapubic pain, chills, or constipation. Patient is also reporting right ear/jaw pain/tenderness with the sore throat. Initial VS at presentation: 97.6? F, HR 84, RR 20, 108/64, and 100% on RA. ED workup showed: WBC 16.0, hemoglobin 9.1 (previously 7.5 on 04/11), INR 1.5, potassium 6.0, sodium 132, creatinine 8.2/GFR 6/BUN 147 (previously 6.45/8/84 on 04/12), lactic 2.5, UA suggestive of UTI. 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 Code status: Full code. Smoking status: Never smoker Second hand tobacco smoke exposure: No Alcohol intake: current Drinks per week: 2 Substance use: never Substance use type: does not use Do You Feel Safe in your Home?: Yes Lack of Transportation: YES Lack of Food: Never True Current Housing: I Have Housing Concerned About Future Housing: No Difficulty Paying Gas/Electric Bills: No Difficulty Paying for Meds: No Currently Unemployed: No Education: Master's Degree or Higher Difficulty w/ Childcare or Family Care: No Living arrangements: with family Additional living arrangements comments: Lives with spouse in [place]. 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: No Meds Home Medications and Allergies Home Medications ?Medication ?Instructions ?Recorded ?Confirmed ?Type amlodipine 10 mg tablet 10 mg PO DAILY 11/28/19 05/10/25 History atorvastatin 20 mg tablet 20 mg PO DAILY 11/28/19 05/10/25 History magnesium chloride 71.5 mg 71.5 mg PO DAILY 11/28/19 05/10/25 History (magnesium chloride) tablet,delayed release (Nu-Mag) omeprazole 20 mg capsule,delayed 20 mg PO DAILY 11/28/19 05/10/25 History release ropinirole 3 mg tablet 3 mg PO HS 11/28/19 05/10/25 History sitagliptin phosphate 50 mg tablet 50 mg PO DAILY 11/28/19 05/10/25 History (Januvia) cholecalciferol (vitamin D3) 25 25 mcg PO DAILY 02/18/25 05/10/25 History mcg (1,000 unit) capsule cyanocobalamin (vitamin B-12) 2,000 mcg PO DAILY 02/18/25 05/10/25 History 1,000 mcg capsule loperamide 2 mg capsule 4 mg PO BID 02/27/25 05/10/25 History (Anti-Diarrheal (loperamide)) sodium bicarbonate 650 mg tablet 650 mg PO BID 2 weeks #28 tabs 04/11/25 05/10/25 Rx sulfamethoxazole 800 1 tablet PO HS 05/10/25 05/10/25 History mg-trimethoprim 160 mg tablet (Bactrim DS) Allergies Allergy/AdvReac Type Severity Reaction Status Date / Time No Known Allergies Allergy Verified 05/10/25 12:29 Vital Signs Vital Signs - 24 hr 05/10/25 12:27 05/10/25 12:41 05/10/25 12:44 Temperature 97.6 F 97.9 F Pulse Rate 84 71 Respiratory Rate 20 24 H 21 H Blood Pressure 108/64 110/65 Pulse Oximetry 100 100 100 Oxygen Delivery Room Air 05/10/25 14:20 05/10/25 16:38 Temperature Pulse Rate 87 78 Respiratory Rate 19 18 Blood Pressure 121/70 133/59 L Pulse Oximetry 100 98 Oxygen Delivery Exam Const: General: comfortable and no acute distress Other: , male, nontoxic appearance, frail HENMT: Face/Nose/Sinus: Normal nares present Mouth: Yes dry mucous membranes Other: No uvula deviation, no cobblestoning, no erythema, tonsils free of erythema, swelling, or white patches peer small aphthous ulcer noted to right reveals mouth, no other blistering or abnormalities. Eyes: General: appearance normal, both eyes and all related structures Sclera: sclerae normal Pupils: Equal, round and reactive pupils present EOM: EOMs intact bilaterally Neck: Lymphatic: lymphadenopathy right postauricular large and tender Resp: Effort & Inspection: normal respiratory effort Auscultation: clear to auscultation bilaterally Cardio: Rate: regular rate Rhythm: regular rhythm Other: S1-S2 present without murmur, rub, ectopy GI: Other: Abdomen soft, nondistended, nontender. Normoactive bowel sounds in all quadrants. Colostomy present to left lower quadrant. Stoma pink and moist. Skin: General skin exam: normal color and no rashes or lesions noted Wounds: no wounds Neuro: Speech: normal speech Motor exam (neuro): 5/5 motor strength present throughout Sensory Exam: normal sensation Other: A&O x4 Extrem: General: normal to inspection Psych: Mental Status: mental status grossly normal Affect: normal affect Other: Good insight and judgment, pleasant H&P: Results Labs Labs: Short CBC 05/10/25 Range/Units 13:26 WBC 16.0 H (4.5-10.0) K/mm3 Hgb 9.1 L (14.0-18.0) g/dL Hct 30.0 L (42.0-52.0) % Plt Count 306 (150-375) k/mm3 BMP 05/10/25 13:26 Sodium 132 L Potassium 6.0 H* Chloride 102 Carbon Dioxide < 5 L BUN 147 H* Creatinine 8.20 H Glucose 179 H Calcium 9.3 Liver Function 05/10/25 Range/Units 13:26 Total Bilirubin 0.4 (0.2-1.3) mg/dL AST 32 (17-59) U/L ALT 73 H (6-50) U/L Alkaline Phosphatase 157 H (38-126) U/L Albumin 3.8 (3.5-5.1) g/dL Urine 05/10/25 Range/Units 14:54 Urine Color Yellow (Yellow) Urine Appearance Turbid H (Clear) Urine pH 5.5 (5.0-9.0) Ur Specific [place] 1.013 (1.001-1.035) Urine Protein 3+ H (Negative) mg/dL Urine Glucose (UA) Negative (Negative) mg/dL Assessment and Plan Assessment and plan (1) Sepsis: Qualifiers: Acute renal failure type: unspecified Sepsis acute organ dysfunction status: with acute organ dysfunction Sepsis type: sepsis due to unspecified organism Severe sepsis acute organ dysfunction type: acute renal failure Severe sepsis shock status: without septic shock Qualified Code(s): A41.9 - Sepsis, unspecified organism; R65.20 - Severe sepsis without septic shock; N17.9 - Acute kidney failure, unspecified Code(s): A41.9 - Sepsis, unspecified organism Status: Acute Assessment and Plan: - meets SIRS criteria: WBC, RR - lactic acid: 2.5 -> 1.9 - lactic elevated, procalcitonin added - 30 mL/kg = 1.8, 1L in ED now on 100 mL/hr - suspected source: UTI - started on cefepime on 05/10 - blood cultures drawn on 05/10, follow - UA suggestive of UTI, see below - patient also has sore throat, small apthous ulcer to roof of mouth x1. Lymphadenopathy noted the postauricular on the right with significant tenderness. CT soft tissue of the neck without con ordered. - monitor hemodynamic stability, admit to IMU (2) Acute on chronic kidney failure: Qualifiers: Acute renal failure type: unspecified Chronic kidney disease stage: unspecified stage Qualified Code(s): N17.9 - Acute kidney failure, unspecified; N18.9 - Chronic kidney disease, unspecified Code(s): N17.9 - Acute kidney failure, unspecified; N18.9 - Chronic kidney disease, unspecified Status: Acute Assessment and Plan: - acute on chronic renal failure - trend: 02/17: 4.32, BUN 62, GFR 13 (admit) 03/15: 4.16, BUN 48, GFR 14 (d/c) 04/06: 10.98, BUN 99, GFR 5 (admit) 04/11: 6.74, BUN 94, GFR 8 (d/c) 05/10: 8.20, BUN 147, GFR 6 (admit) - previously evaluated by Nephrology in March of 2025. At that time CT showed hydronephrosis but stent in good position, UA suggestive of infection, urine electrolytes non pre renal, CPK normal/low. Etiology for MERI unclear, possible volume depletion, possible transient obstruction, infection, continued use of irbesartan. CKD felt to be secondary to nephrectomy, hypertension, vascular disease, age related changes. - follows with Dr. Olvin Dixon at [facility] for management of his CKD - K 6.0, presumed secondary to worsening renal function - nephrology consulted, Archana KOLB. - previous imaging: Renal US, 04/09/25: Chronic moderate right hydronephrosis Renal Scan NM, 04/10/25: Markedly delayed time to peak activity in the right kidney which could be due to high-grade obstruction with moderate right hydronephrosis despite the presence of an internal ureteral stent on recent prior CT versus severe nonspecific nephropathy of other indeterminate etiology. - trend renal function (3) Acute hyperkalemia: Code(s): E87.5 - Hyperkalemia Status: Acute Assessment and Plan: - K 6.0 - initial treatment with calcium, insulin/dextrose, and sodium bicarbonate - monitor, recheck this evening (4) UTI (urinary tract infection): Qualifiers: Hematuria presence: without hematuria Urinary tract infection type: acute cystitis Qualified Code(s): N30.00 - Acute cystitis without hematuria Code(s): N39.0 - Urinary tract infection, site not specified Status: Acute Assessment and Plan: - UA: Turbid, 3+ protein, 3+ blood, 3+ leuk esterase, greater than 100 RBC and WBC, 4+ bacteria, no epithelial cells. - UC pending, follow - previous micro reviewed: Enterobacter on 03/10 with resistance to Augementin, Ancef, and Zosyn. Intermediate to ceftazidime. Enterococcus on - started on cefepime on 05/10 - antipyretics p.r.n., IV fluids (5) Metabolic acidosis: Code(s): E87.20 - Acidosis, unspecified Status: Acute Assessment and Plan: - CO2 <5 - started on Bicarb gtt at 100 mL/hr. Hold oral bicarb. - repeat chemistry this evening (6) Anemia: Qualifiers: Anemia type: due to chronic kidney disease Chronic kidney disease stage: unspecified stage Qualified Code(s): N18.9 - Chronic kidney disease, unspecified; D63.1 - Anemia in chronic kidney disease Code(s): D64.9 - Anemia, unspecified Status: Chronic Assessment and Plan: - Hgb 9.1, previously 7.5 on 04/11 - transfuse if <7 - trend H&H - presumed anemia secondary to CKD (7) Hypertension: Qualifiers: Hypertension type: primary hypertension Qualified Code(s): I10 - Essential (primary) hypertension Code(s): I10 - Essential (primary) hypertension Status: Chronic Assessment and Plan: - chronic, currently 133/59 - continue home medications: Amlodipine. Hold Irbesartan. - monitor Plan Prediabetic controlled with diet and Januvia, Januvia continued w/hypoglycemia protocol. Diet: Renal/dialysis GI Prophylaxis: Not currently indicated DVT Prophylaxis: SCDs IV fluids: Bicarb 100 mL/hour Lines/Tubes: Peripheral IV Code Status: Full code Quality VTE Prophylaxis VTE prophylaxis: mechanical ordered Hospitalist MIPS Advance Care Plan I have confirmed that the patient's Advanced Care Plan is present, code status is documented, or surrogate decision maker is listed in patient medical record.: Yes Medication Reconciliation I have utilized all available resources to obtain, update and review the patients current medications (includes all prescriptions, OTC, herbals, cannabis, and nutritional supplements).: Yes
[2025-05-10] MEDS: SODIUM BICARBONATE 8.4% 75 MEQ in SODIUM CHLORIDE 0.45% 1,000 ML 100 MEQ IV CONT (17:53)
[2025-05-10 18:19] LABS: Lactic Acid 1.9 mmol/L (0.7-2.0)
[2025-05-10 18:26] LABS: Alanine Aminotransferase 58 U/L (6-50); Albumin Level 3.4 g/dL (3.5-5.1); Alkaline Phosphatase 158 U/L (38-126); Anion Gap 21 mmol/L (4-12); Aspartate Amino Transferase 34 U/L (17-59); Bilirubin,Total 0.4 mg/dL (0.2-1.3); Calcium 8.9 mg/dL (8.4-10.2); Carbon Dioxide 8 mmol/L (22-30); Chloride 103 mmol/L (98-107); Estimated CRCL calculation 7 ml/min; Estimated Glomerular Filt Rate 7; Glucose 120 mg/dL (65-110); Sodium 132 mmol/L (137-145); Total Protein 7.6 g/dL (6.3-8.2)
[2025-05-10 18:27] LABS: Blood Urea Nitrogen 146 mg/dL (9-20)
[2025-05-10 19:39] LABS: Magnesium 1.6 mg/dL (1.6-2.3)
[2025-05-10 19:49] LABS: Creatinine Urine 61.7 mg/dL; Total Protein Urine Random 175 mg/dL; Ur Ttl Prot Creatinine Ratio 2.84 mg/mg (0-0.20)
[2025-05-10 19:58] LABS: Procalcitonin 4.3 ng/mL
[2025-05-10 19:58] LABS: Sodium Urine Random 48 meq/L; Urea Random Urine 467 MG/DL
[2025-05-10] MEDS: CEFEPIME 1 GM/NS 50 ML 1 GM/50 ML BAG IVPB (21:14)
[2025-05-10] MEDS: rOPINIRole HCL 1 MG TABLET 3 MG PO (22:10)
[2025-05-10] MEDS: ALBUMIN HUMAN 25% 25 GM/100 ML 100 ML IVPB (23:56)
[2025-05-11] VITALS (15 sets, daily range): BP systolic 107–129; BP diastolic 53–63; PULSE 63–89; RESP 18–20; TEMP 36.4–37.1; O2SAT 97–100; BMI 19.8
[2025-05-11 05:14] LABS: Basophils Percent Auto 0.1 % (0.2-1.2); Eosinophils Percent Auto 0.2 % (0-4.4); Immature Granulocyte Absolute 0.11 K/mm3 (0.00-0.031); Lymphocytes Absolute Auto 0.76 K/mm3 (0.9-3.2); Lymphocytes Percent Auto 6.6 % (18.3-44.2); Mean Corpuscular HGB Conc 30.9 g/dl (32-36); Mean Corpuscular Hemoglobin 27.8 pg (26-34); Mean Corpuscular Volume 89.8 fl (80-100); Monocytes Absolute Auto 0.4 K/mm3 (0.1-0.6); Monocytes Percent Auto 3.7 % (2.6-8.5); Neutrophils Absolute Auto 10.2 K/mm3 (1.3-6.7); Neutrophils Percent Auto 88.4 % (45.5-73.1); Platelet Count Result 206 k/mm3 (150-375); Red Blood Count 2.45 M/mm3 (4.6-6.20); Red Cell Distribution Width 16.3 % (11.5-14.5); White Blood Count 11.6 K/mm3 (4.5-10.0)
[2025-05-11 05:21] LABS: Alanine Aminotransferase 44 U/L (6-50); Albumin Level 3.4 g/dL (3.5-5.1); Alkaline Phosphatase 111 U/L (38-126); Anion Gap 17 mmol/L (4-12); Aspartate Amino Transferase 22 U/L (17-59); Bilirubin,Total 0.5 mg/dL (0.2-1.3); Calcium 8.5 mg/dL (8.4-10.2); Carbon Dioxide 10 mmol/L (22-30); Chloride 106 mmol/L (98-107); Creatine Kinase 20 U/L (55-170); Estimated CRCL calculation 7 ml/min; Estimated Glomerular Filt Rate 7; Glucose 105 mg/dL (65-110); Magnesium 1.6 mg/dL (1.6-2.3); Potassium 4.7 mmol/L (3.4-5.0); Sodium 133 mmol/L (137-145); Total Protein 7.2 g/dL (6.3-8.2)
[2025-05-11 05:23] LABS: Hemoglobin 6.8 g/dL (14.0-18.0)
[2025-05-11] MEDS: ALBUMIN HUMAN 25% 25 GM/100 ML 100 ML IVPB ×3 (05:35→17:01)
[2025-05-11 05:46] LABS: Blood Urea Nitrogen 134 mg/dL (9-20)
[2025-05-11 05:49] LABS: Hepatitis B Surface Antigen Negative (Negative)
[2025-05-11 06:06] LABS: Hepatitis B Surface Anti Res Negative
--- NOTE | 2025-05-11 07:42 | PM.IMPN ---
Progress Note: A&P Assessment and Plan (1) Sepsis: Qualifiers: Acute renal failure type: unspecified Sepsis acute organ dysfunction status: with acute organ dysfunction Sepsis type: sepsis due to unspecified organism Severe sepsis acute organ dysfunction type: acute renal failure Severe sepsis shock status: without septic shock Qualified Code(s): A41.9 - Sepsis, unspecified organism; R65.20 - Severe sepsis without septic shock; N17.9 - Acute kidney failure, unspecified Code(s): A41.9 - Sepsis, unspecified organism Status: Acute Assessment and Plan: - meets SIRS criteria: WBC, RR - lactic acid: 2.5 received sepsis bolus -> 1.9 - lactic elevated, procalcitonin 4.3 (suggestive of sepsis) - 30 mL/kg = 1.8, 1L in ED now on 100 mL/hr - suspected source: UTI - started on cefepime on 05/10, transitioned to Unasyn 3 g daily given kidney function - blood cultures drawn on 05/10, pending - UA suggestive of UTI, see below - patient also has sore throat, small apthous ulcer to roof of mouth x1. Lymphadenopathy noted the postauricular on the right with significant tenderness. CT soft tissue of the neck showed right pleural effusion and atherosclerotic changes of carotids, otherwise normal - monitor hemodynamic stability, admit to IMU (2) Acute on chronic kidney failure: Qualifiers: Acute renal failure type: unspecified Chronic kidney disease stage: unspecified stage Qualified Code(s): N17.9 - Acute kidney failure, unspecified; N18.9 - Chronic kidney disease, unspecified Code(s): N17.9 - Acute kidney failure, unspecified; N18.9 - Chronic kidney disease, unspecified Status: Acute Assessment and Plan: - Acute on chronic renal failure. S/p left nephrectomy. Follows with Dr. Olvin Dixon at [facility] for management of his CKD - trend: 02/17: 4.32, BUN 62, GFR 13 (admit) 03/15: 4.16, BUN 48, GFR 14 (d/c) 04/06: 10.98, BUN 99, GFR 5 (admit) 04/11: 6.74, BUN 94, GFR 8 (d/c) 05/10: 8.20, BUN 147, GFR 6 (admit) - previously evaluated by Nephrology in March of 2025. At that time CT showed hydronephrosis but stent in good position, UA suggestive of infection, urine electrolytes non pre renal, CPK normal/low. Etiology for MERI unclear, possible volume depletion, possible transient obstruction, infection, continued use of irbesartan. CKD felt to be secondary to nephrectomy, hypertension, vascular disease, age related changes. - K 6.0, presumed secondary to worsening renal function. Returned to WNL, currently 4.7. - previous imaging: Renal US, 04/09/25: Chronic moderate right hydronephrosis Renal Scan NM, 04/10/25: Markedly delayed time to peak activity in the right kidney which could be due to high-grade obstruction with moderate right hydronephrosis despite the presence of an internal ureteral stent on recent prior CT versus severe nonspecific nephropathy of other indeterminate etiology. - trend renal function - nephrology consulted, Archana KOLB. (3) Acute hyperkalemia: Code(s): E87.5 - Hyperkalemia Status: Acute Assessment and Plan: - K 6.0 on admission, K 4.7 on am labs - initial treatment with calcium, insulin/dextrose, and sodium bicarbonate on 05/10 - Placed on tele - Continue to monitor (4) UTI (urinary tract infection): Qualifiers: Hematuria presence: without hematuria Urinary tract infection type: acute cystitis Qualified Code(s): N30.00 - Acute cystitis without hematuria Code(s): N39.0 - Urinary tract infection, site not specified Status: Acute Assessment and Plan: - UA: Turbid, 3+ protein, 3+ blood, 3+ leuk esterase, greater than 100 RBC and WBC, 4+ bacteria, no epithelial cells. - UC pending, follow - previous micro reviewed: Enterococcus 04/06/25 Enterobacter on 03/10 with resistance to Augmentin, Ancef, and Zosyn. Intermediate to ceftazidime. - started on cefepime on 05/10, transitioned to Unasyn 3 g daily given kidney function - antipyretics p.r.n., IV fluids (5) Metabolic acidosis: Code(s): E87.20 - Acidosis, unspecified Status: Acute Assessment and Plan: - CO2 <5 on admission, currently 10 on am labs - started on Bicarb gtt at 75 mL/hr. Hold oral bicarb. - Nephrology following (6) Lymphadenopathy, periauricular: Code(s): R59.0 - Localized enlarged lymph nodes Status: Acute Assessment and Plan: Right periauricular edema with tenderness to palpation started 05/10. No redness, warmth, or associated rash. Fluid seen behind TM on otoscope. DDx includes parotitis, mastoiditis, lymphedema, abscess formation vs other CT soft tissue neck unremarkable US ordered, read pending Remains on unasyn for cocurrent UTI Monitor (7) Anemia: Qualifiers: Anemia type: due to chronic kidney disease Chronic kidney disease stage: unspecified stage Qualified Code(s): N18.9 - Chronic kidney disease, unspecified; D63.1 - Anemia in chronic kidney disease Code(s): D64.9 - Anemia, unspecified Status: Chronic Assessment and Plan: - Hgb 9.1 on admission, previously 7.5 on 04/11 - H/H 6.8/22 on am labs, given pRBC x1. Repeat H/H ordered. - transfuse if <7 - trend H&H - presumed anemia secondary to CKD (8) Hypertension: Qualifiers: Hypertension type: primary hypertension Qualified Code(s): I10 - Essential (primary) hypertension Code(s): I10 - Essential (primary) hypertension Status: Chronic Assessment and Plan: Chronic, continue home medications - Amlodipine 10 mg daily - Blood pressures remain stable, continue to monitor Time Spent With Patient Time with patient: 25 - 35 minutes Subjective Date/time seen: 05/11/25 07:42 Interval history: 74 year old male with past medical history of CKD, carcinoma of colorectal region (s/p radiation, total colectomy, and partial small-bowel resection), HTN, RLS, HLD, Crohn's disease, kidney stones, nephrectomy (left, 2012), 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 Patient is pleasant lying comfortably in bed with family at bedside. Patient reports right periauricular edema with tenderness to palpation started 05/10. No redness, warmth, or associated rash. Denies any ear, nose, throat pain/discomfort currently. Does endorse an occasional cough, nonproductive. Has no other complaints denying chest pain, palpitations, shortness of breath, nausea/vomiting and abdominal pain. Review of Systems Review of Systems: All systems reviewed & are unremarkable except as noted in HPI and below Exam Narrative: AF HR 64 RR 20 SpO2 99 BP 107/54 General: male in no acute respiratory distress who is nontoxic appearing, lying semi recumbent in bed. HEENT: Normocephalic. Atraumatic.Extraocular movement intact. Sclera clear and anicteric. No oral lesions. Moist mucous membranes. Tongue is midline. Palate tal symmetrically. No facial asymmetry. Right periauricular edema with tenderness to palpation. No redness or warmth. Fluid seen behind TM on otoscope. Chest: Lungs with slight coarseness on auscultation to right > left base. No wheezes or crackles. CV: Heart was regular rate and rhythm. S1/S2. No murmurs, gallops, or rubs. Abd: Abdomen was soft. Nontender. Nondistended. Positive bowel sounds. Neuro: Patient is alert and oriented x4. Speech is clear. Psych: Normal mood and affect. Patient is pleasant and cooperative. Skin: Warm and dry. No rashes noted. Objective Data Vital Signs Vital Signs: Vital Signs - 24 hr 05/10/25 12:27 05/10/25 12:41 05/10/25 12:44 Temperature 97.6 F 97.9 F Pulse Rate 84 71 Respiratory Rate 20 24 H 21 H Blood Pressure 108/64 110/65 Pulse Oximetry 100 100 100 Oxygen Delivery Room Air Fraction of Inspired Oxygen 05/10/25 14:20 05/10/25 16:38 05/10/25 16:54 Temperature 97.7 F Pulse Rate 87 78 67 Respiratory Rate 19 18 20 Blood Pressure 121/70 133/59 L 118/56 L Pulse Oximetry 100 98 98 Oxygen Delivery Fraction of Inspired Oxygen 05/10/25 18:00 05/10/25 20:00 05/10/25 20:00 Temperature 97.3 F L Pulse Rate 67 65 Respiratory Rate 20 Blood Pressure 109/61 Pulse Oximetry 100 Oxygen Delivery Room Air Fraction of Inspired Oxygen 05/10/25 20:00 05/10/25 21:35 05/11/25 00:00 Temperature 97.7 F Pulse Rate 63 71 64 Respiratory Rate 18 Blood Pressure 113/63 Pulse Oximetry 95 100 Oxygen Delivery Room Air Fraction of Inspired Oxygen 21 05/11/25 00:00 05/11/25 00:00 05/11/25 04:00 Temperature Pulse Rate 63 Respiratory Rate Blood Pressure Pulse Oximetry Oxygen Delivery Room Air Room Air Fraction of Inspired Oxygen 05/11/25 04:00 05/11/25 04:00 05/11/25 05:15 Temperature 97.6 F Pulse Rate 67 69 67 Respiratory Rate 18 Blood Pressure 120/60 Pulse Oximetry 100 Oxygen Delivery Fraction of Inspired Oxygen Intake/Output Intake/Output: Intake & Output 05/08/25 05/09/25 05/10/25 05/11/25 23:59 23:59 23:59 23:59 Intake Total 1050 1396.7 Output Total 300 300 Balance 750 1096.7 Meds/Results Medications: Active Medications Generic Name Dose Route Start Last Admin Trade Name Freq PRN Reason Stop Dose Admin Acetaminophen 650 mg 05/10/25 15:29 Acetaminophen 325 Mg Tablet PO Q4H PRN Mild Pain (1-3) or Fever Hydrocodone Bitart/Acetaminophen 1 tab 05/10/25 15:29 Hydrocodone/Acetaminophen (*Crx) 5-325 Mg Tablet PO Q4H PRN Pain Rated 4-6 Amlodipine Besylate 10 mg 05/11/25 09:00 Amlodipine Besylate 10 Mg Tablet PO DAILY [facility] Atorvastatin Calcium 20 mg 05/11/25 09:00 Atorvastatin 20 Mg Tablet PO DAILY [facility] Cyanocobalamin 2,000 mcg 05/11/25 09:00 Cyanocobalamin 1,000 Mcg Tablet PO DAILY [facility] Dextrose 12.5 gm 05/10/25 21:19 Dextrose 50% 25 Gm/50 Ml Syringe IV PUSH PRN PRN Hypoglycemia Protocol Glucagon 1 mg 05/10/25 21:19 Glucagon For Inj 1 Mg Vial IM PRN PRN Hypoglycemia Protocol Glucose 15 gm 05/10/25 21:19 Glucose Oral Gel 15 Gm Of Glucse In 37.5 Gm Tube PO PRN PRN Hypoglycemia Protocol Sodium Bicarbonate 75 meq/ 1,075 mls @ 75 mls/hr 05/10/25 17:30 05/11/25 01:21 Sodium Chloride IV CONT 75 mls/hr .[id number] KIRSTEN Infusion Cefepime HCl 1 gm in 50 mls @ 100 mls/hr 05/10/25 18:00 05/10/25 21:41 Maxipime 1 Gm/Ns 50 Ml IVPB Infused Q24H KIRSTEN Infusion Albumin Human 100 mls @ 60 mls/hr 05/11/25 00:00 05/11/25 05:35 Albutein IVPB 05/11/25 19:39 60 mls/hr Q6HR KIRSTEN Administration Dextrose 1,000 mls @ 100 mls/hr 05/10/25 21:19 Dextrose 5% 1,000 Ml IVPB PRN PRN Hypoglycemia Protocol Sodium Chloride 250 mls @ 30 mls/hr 05/11/25 06:22 Normal Saline Iv IV CONT 05/11/25 14:41 .Q8H20M STA Loperamide HCl 2 mg 05/10/25 21:33 Loperamide Hcl 2 Mg Capsule PO Q2H PRN Diarrhea Magnesium Chloride 64 mg 05/11/25 09:00 Magnesium Chloride 64 Mg Tablet PO DAILY [facility] Morphine Sulfate 2 mg 05/10/25 15:29 Morphine Sulfate (*Crx) 2 Mg/Ml Inj IV PUSH Q2H PRN Pain Rated 7-10 Ondansetron HCl 4 mg 05/10/25 15:29 Ondansetron Inj 4 Mg/2 Ml Vial IV PUSH Q4H PRN Nausea Pantoprazole Sodium 40 mg 05/11/25 09:00 Pantoprazole 40 Mg Tablet PO QAM [facility] Ropinirole HCl 3 mg 05/10/25 21:30 05/10/25 22:10 Ropinirole Hcl 1 Mg Tablet PO 3 mg HS [facility] Administration Sitagliptin Phosphate 50 mg 05/11/25 09:00 Sitagliptin Phosphate 50 Mg Tablet PO DAILY [facility] Vitamin D 25 mcg 05/11/25 09:00 Cholecalciferol (Vitamin D3) 25 Mcg (1,000 Units) Tablet PO DAILY [facility] Radiology Results: ITS Impressions Soft Tissue Neck CT 05/10/25 22:02 IMPRESSION: 1. Right pleural effusion. 2. Atherosclerotic changes of the carotid arteries.Otherwise, Normal CT neck. Labs Labs: Laboratory Results - last 24 hr 05/10/25 05/10/25 05/10/25 13:26 13:38 14:05 WBC 16.0 H RBC 3.31 L Hgb 9.1 L Hct 30.0 L MCV 90.6 MCH 27.5 MCHC 30.3 L RDW 16.2 H Plt Count 306 MPV 10.1 Immature Gran % (Auto) 1.6 H Neut % (Auto) 91.5 H Lymph % (Auto) 3.4 L [place] % (Auto) 3.4 Eos % (Auto) 0.0 Baso % (Auto) 0.1 L Lymph # (Auto) 0.54 L [place] # (Auto) 0.5 Eos # (Auto) 0.0 Baso # (Auto) 0.0 Abs Immat Gran (auto) 0.25 H Absolute Neuts (auto) 14.6 H Absolute Nucleated RBC 0.000 Nucleated RBC % 0.0 PT 18.0 H INR 1.5 APTT 29.5 Sodium 132 L Potassium 6.0 H* Chloride 102 Carbon Dioxide < 5 L Anion Gap BUN 147 H* Creatinine 8.20 H Estim Creat Clear Calc 6 Estimated GFR 6 L Glucose 179 H POC Capillary Glucose 158 H Lactic Acid 2.5 H Calcium 9.3 Phosphorus Magnesium Total Bilirubin 0.4 AST 32 ALT 73 H Alkaline Phosphatase 157 H Total Creatine Kinase Total Protein 9.0 H Albumin 3.8 Procalcitonin Urine Color Urine Appearance Urine pH Ur Specific [place] Urine Protein Urine Glucose (UA) Urine Ketones Ur Blood (Man) Urine Nitrate Urine Bilirubin Urine Urobilinogen Leukocyte Esterase Rfl Urine RBC Urine WBC Ur Squamous Epith Cells Urine Bacteria Urine Casts U Random Total Protein Ur Random Sodium Ur Random Urea Urine Total Volume Urine Creatinine Protein/Creat Ratio 2 Hep Bs Antigen Hep Bs Antibody Blood Type Crossmatch 05/10/25 05/10/25 05/10/25 14:54 17:22 17:34 WBC RBC Hgb Hct MCV MCH MCHC RDW Plt Count MPV Immature Gran % (Auto) Neut % (Auto) Lymph % (Auto) [place] % (Auto) Eos % (Auto) Baso % (Auto) Lymph # (Auto) [place] # (Auto) Eos # (Auto) Baso # (Auto) Abs Immat Gran (auto) Absolute Neuts (auto) Absolute Nucleated RBC Nucleated RBC % PT INR APTT Sodium 132 L Potassium 5.0 Chloride 103 Carbon Dioxide 8 L Anion Gap 21 H BUN 146 H* Creatinine 7.63 H Estim Creat Clear Calc 7 Estimated GFR 7 L Glucose 120 H POC Capillary Glucose Lactic Acid 1.9 Calcium 8.9 Phosphorus Magnesium 1.6 Total Bilirubin 0.4 AST 34 ALT 58 H Alkaline Phosphatase 158 H Total Creatine Kinase Total Protein 7.6 Albumin 3.4 L Procalcitonin 4.3 Urine Color Yellow Urine Appearance Turbid H Urine pH 5.5 Ur Specific [place] 1.013 Urine Protein 3+ H Urine Glucose (UA) Negative Urine Ketones Negative Ur Blood (Man) 3+ H Urine Nitrate Negative Urine Bilirubin Negative Urine Urobilinogen 0.2 Leukocyte Esterase Rfl 3+ H Urine RBC >100 H Urine WBC >100 H Ur Squamous Epith Cells None seen Urine Bacteria 4+ H Urine Casts 0-2 U Random Total Protein Ur Random Sodium Ur Random Urea Urine Total Volume Urine Creatinine Protein/Creat Ratio 2 Hep Bs Antigen Hep Bs Antibody Blood Type Crossmatch 05/10/25 05/10/25 05/10/25 18:49 18:49 18:49 WBC RBC Hgb Hct MCV MCH MCHC RDW Plt Count MPV Immature Gran % (Auto) Neut % (Auto) Lymph % (Auto) [place] % (Auto) Eos % (Auto) Baso % (Auto) Lymph # (Auto) [place] # (Auto) Eos # (Auto) Baso # (Auto) Abs Immat Gran (auto) Absolute Neuts (auto) Absolute Nucleated RBC Nucleated RBC % PT INR APTT Sodium Potassium Chloride Carbon Dioxide Anion Gap BUN Creatinine Estim Creat Clear Calc Estimated GFR Glucose POC Capillary Glucose Lactic Acid Calcium Phosphorus Magnesium Total Bilirubin AST ALT Alkaline Phosphatase Total Creatine Kinase Total Protein Albumin Procalcitonin Urine Color Urine Appearance Urine pH Ur Specific [place] Urine Protein Urine Glucose (UA) Urine Ketones Ur Blood (Man) Urine Nitrate Urine Bilirubin Urine Urobilinogen Leukocyte Esterase Rfl Urine RBC Urine WBC Ur Squamous Epith Cells Urine Bacteria Urine Casts U Random Total Protein 175 Cancelled Ur Random Sodium 48 Ur Random Urea 467 Urine Total Volume Cancelled Urine Creatinine 61.7 Cancelled Protein/Creat Ratio 2 2.84 H Hep Bs Antigen Hep Bs Antibody Blood Type Crossmatch 05/11/25 05/11/25 04:03 06:49 WBC 11.6 H RBC 2.45 L Hgb 6.8 L* Hct 22.0 L MCV 89.8 MCH 27.8 MCHC 30.9 L RDW 16.3 H Plt Count 206 MPV 10.0 Immature Gran % (Auto) 1.0 H Neut % (Auto) 88.4 H Lymph % (Auto) 6.6 L [place] % (Auto) 3.7 Eos % (Auto) 0.2 Baso % (Auto) 0.1 L Lymph # (Auto) 0.76 L [place] # (Auto) 0.4 Eos # (Auto) 0.0 Baso # (Auto) 0.0 Abs Immat Gran (auto) 0.11 H Absolute Neuts (auto) 10.2 H Absolute Nucleated RBC 0.000 Nucleated RBC % 0.0 PT INR APTT Sodium 133 L Potassium 4.7 Chloride 106 Carbon Dioxide 10 L Anion Gap 17 H BUN 134 H* D Creatinine 7.19 H Estim Creat Clear Calc 7 Estimated GFR 7 L Glucose 105 POC Capillary Glucose Lactic Acid Calcium 8.5 Phosphorus 9.0 H Magnesium 1.6 Total Bilirubin 0.5 AST 22 ALT 44 Alkaline Phosphatase 111 Total Creatine Kinase 20 L Total Protein 7.2 Albumin 3.4 L Procalcitonin Urine Color Urine Appearance Urine pH Ur Specific [place] Urine Protein Urine Glucose (UA) Urine Ketones Ur Blood (Man) Urine Nitrate Urine Bilirubin Urine Urobilinogen Leukocyte Esterase Rfl Urine RBC Urine WBC Ur Squamous Epith Cells Urine Bacteria Urine Casts U Random Total Protein Ur Random Sodium Ur Random Urea Urine Total Volume Urine Creatinine Protein/Creat Ratio 2 Hep Bs Antigen Negative Hep Bs Antibody Negative Blood Type A Positive Crossmatch See Detail Quality VTE Prophylaxis VTE prophylaxis: mechanical ordered
[2025-05-11] MEDS: CHOLECALCIFEROL (VITAMIN D3) 25 MCG (1,000 UNITS) TABLET PO (08:45)
[2025-05-11] MEDS: SODIUM BICARBONATE 8.4% 75 MEQ in SODIUM CHLORIDE 0.45% 1,000 ML IV CONT (08:45)
[2025-05-11] MEDS: amLODIPine BESYLATE 10 MG TABLET PO (08:46)
[2025-05-11] MEDS: CYANOCOBALAMIN 1,000 MCG TABLET 2000 MCG PO (08:46)
[2025-05-11] MEDS: ATORVASTATIN 20 MG TABLET PO (08:46)
[2025-05-11] MEDS: PANTOPRAZOLE 40 MG TABLET PO (08:46)
[2025-05-11] MEDS: SITagliptin PHOSPHATE 50 MG TABLET PO (08:47)
[2025-05-11] MEDS: MAGNESIUM CHLORIDE 64 MG TABLET PO (08:47)
[2025-05-11] MEDS: AMPICILLIN SULB 3 GM/NS 100 ML 3 GM/100 ML VIAL IVPB (09:01)
[2025-05-11] MEDS: SODIUM CHLORIDE 0.9% IV 250 ML 30 ML IV CONT (09:40)
--- NOTE | 2025-05-11 13:25 | P.CONNP_ITS ---
Assessment and Plan Assessment and plan (1) Acute kidney injury: Code(s): N17.9 - Acute kidney failure, unspecified Status: Acute Assessment and Plan: * slow improvement noted * as noted by admission creatinine * records reviewed/noted over recent hospitalizations * creatinine did improve to 3.0mg/dl (on 03/09/25) * however, did worsen/rise again given previous bacteremia/infection on February 2025 admission - discharge creatinine was 4.16mg/dl * creatinine on admission in March 2025 was 10.98mg/dl - discharged with a creatinine of 6.45mg/dl; unclear if her kidney function improved to previous baseline following that discharge * admitted this time with a creatinine of 8.2mg/dl * evaluations to date (previous + current hospitalization) noted: * CT of A/P showed hydronephrosis (but ureteral stent in good position) * UA suggestive of infection * urine studies non-prerenal * element of volume depletion (?) * normal CPK * moderate proteinuria * trial of IVFs * remains at risk for INTAKE COORDINATOR/dialysis (see discussion below) * follow trend of repeat labs and UOP (2) Chronic kidney disease, stage IV (severe): Code(s): N18.4 - Chronic kidney disease, stage 4 (severe) Status: Chronic Assessment and Plan: * creatinine was 2.35mg/dl in December 2024 * this places him around CKD stage 3b/stage 4 * likely a result of his nephrectomy, hypertension, vascular disease and age- related change * given recent hospitalizations since January 2025 (for obstruction, infection/sepsis...etc) -- he may have a new baseline... * follows with Dr. Olvin Dixon at [facility] for management of his CKD (3) Hyperkalemia: Code(s): E87.5 - Hyperkalemia Status: Acute Assessment and Plan: * due to MERI/ARF * s/p medical management * follow trend of K+ level (4) Metabolic acidosis: Code(s): E87.20 - Acidosis, unspecified Status: Acute Assessment and Plan: * due to MERI/ARF * quite severe on presentation (CO2 <5) * on bicarb fluids (1/2NS + 75MEQ sodium bicarbonate) * this should help improve K+ as well * will add oral bicarbonate as well * follow CO2 levels (5) UTI (urinary tract infection): Qualifiers: Hematuria presence: without hematuria Urinary tract infection type: a cute cystitis Qualified Code(s): N30.00 - Acute cystitis without hematuria Code(s): N39.0 - Urinary tract infection, site not specified Status: Acute Assessment and Plan: * admission/outpatient UA highly suggestive: * follow urine culture results * on antibiotics (6) Anemia: Qualifiers: Anemia type: due to chronic kidney disease Chronic kidney disease stage: unspecified stage Qualified Code(s): N18.9 - Chronic kidney disease, unspecified; D63.1 - Anemia in chronic kidney disease Code(s): D64.9 - Anemia, unspecified Status: Chronic Assessment and Plan: * related to underlying CKD likely worsened by MERI * PRBC transfusion per protocol * Epogen while hospitalized * follow trend of H/H (7) Hypertension: Qualifiers: Hypertension type: primary hypertension Qualified Code(s): I10 - Essential (primary) hypertension Code(s): I10 - Essential (primary) hypertension Status: Chronic Assessment and Plan: * reasonable control at this time * holding ARB * follow trend of hemodynamics (8) Hydroureteronephrosis: Code(s): N13.30 - Unspecified hydronephrosis Status: Acute Assessment and Plan: * as noted by previous imaging studies * s/p cystoscopy, right retrograde pyelogram, right ureteral stent insertion (on 02/20) * right ureteral stent removal (on 03/09) * right ureteral stent replacement (on 03/10) as renal function acutely worsened after stent removal * follows with Urology as an outpatient Long extensive discussion (greater than 25 minutes) with the patient regarding his severe decline in renal function in association with his elevated potassium, worsening acidosis, along with azotemia and my concern that if these laboratory parameters do not improve with ongoing conservative medical therapy, he may require renal replacement therapy/dialysis. The patient appeared to voice understanding and although the severity of his renal dysfunction is quite apparent, he otherwise appears to be be asymptomatic which is a favorable prognostic sign. Hopefully, with continued conservative therapy that has already been instituted (which is similar to his recent previous admissions), his renal function will improve although I am unclear if it will return to its previous baseline as noted in December of 2024 given the severity and multitude of insults to his kidneys in the last few months. I will continue to follow the patient with you while he remains hospitalized and make further recommendations as deemed necessary. Thank you for allowing me to participate in the care of this patient. L History of Present Illness Reason for Consult Consult date: 05/11/25 Reason for consult: acute renal failure (on chronic kidney disease) Chief Complaint Chief complaint: acute on chronic renal failure,hyperkalemia,uti,ur History of Present Illness Narrative: The patient is a 74-year-old male with a past medical history as outlined below who presented to [facility] Emergency Room due to abnormal labs. The patient was apparently scheduled for a follow-up appoint with Dr. Oden, his urologist. Routine labs were done which demonstrated a potassium of 6.4 in association with worsening renal dysfunction and a urinalysis concerning for urinary tract infection. Due to these abnormal labs and findings, he was directed to the ER for further assessment. This will be the patient's 3rd admission in the last few months at [facility] for similar issues. Despite his laboratory abnormalities as detailed below, he otherwise had no acute symptoms or complaints with regard to fevers, chills, fatigue, malaise, body aches, diaphoresis, dysuria, abdominal pain, hematuria, nausea, vomiting, diarrhea, palpitations, lightheadedness, or dizziness. He does state he has a reduced appetite and has been trying to drink as much as he can given the issues as mentioned on his previous hospitalizations. He does report a 25 lb weight loss since February of this year with intermittent nausea well along some right ear/jaw pain and tenderness in association with a mildly sore throat. Workup and evaluation emergency room demonstrated the patient be hemodynamically stable and afebrile. Repeat blood work was done which demonstrated a mildly elevated white blood cell count of 16, relative anemia with a hemoglobin 9.1, and repeat electrolytes that showed the potassium of 6.0, sodium 132, creatinine 8.2 with a BUN of 147 an associated GFR of 6. As already mentioned, his UA that was already done previously was somewhat suggestive of urinary tract infection as well. He received medical management for his hyperkalemia and was initiated on aggressive IV fluid resuscitation on the assumption this would improve his kidney function. IV antibiotic therapy after appropriate cultures were done was initiated and he was subsequently admitted to the hospital for further evaluation and therapy. Renal consultation was requested due to his acute kidney injury/acute renal failure on top of his baseline chronic kidney disease. The patient is somewhat familiar to me as I have been involved in his care since his January 2025 hospitalization. The patient has known chronic kidney disease secondary to his solitary kidney/left nephrectomy in conjunction with hypertension, nephrolithiasis, borderline diabetes, and age-related change and follows with Dr. Olvin Dixon for management of his CKD. His baseline creatinine was around 2.35 mg/dL in December of this year with recent fluctuations in his renal function/creatinine over last couple of months secondary to his acute hospitalizations for sepsis, bacteremia/UTI eyes, obstructive uropathy/hydronephrosis, and deconditioning. He was 1st hospitalized in late January of this year for acute kidney injury on top of his baseline chronic renal insufficiency secondary to nephrolithiasis, urinary tract infection, and moderate hydronephrosis in his solitary/right kidney. He was treated with antibiotics as well as ureteral stent placement with improvement in his renal function by the time of discharge to a creatinine of 3.1mg/dl. He was then subsequently readmitted in early February of this year after an outpatient procedure with regard to removal of the right ureteral stent. Postprocedure, he developed a fever and worsening renal function which necessitated replacement of the right ureteral stent as well as IV antibiotic therapy as well. That hospitalization was complicated by Enterobacter bacteremia and associated urinary tract infection. His antibiotics were adjusted and repeat blood cultures demonstrated no growth and he was subsequently discharged on oral antibiotic therapy with a slowly improving creatinine which was down to 4.16 mg/dL. He re-admitted again in early March 2025 MERI on his CKD yet again in association with hyperkalemia -- once again, he was treated with antibiotics, IV fluids with bicarb, and oral bicarbonate. Although there was a concern that he may require renal replacement therapy/dialysis on all of these hospitalizations, his renal function and electrolytes improved/stabilized sufficiently enough that he did not require this intervention. His creatinine did improve to as low as 3.0 mg/dL but on his last hospitalization in March, it had come down to 6.45 mg/dL by the time of discharge (discharged at the patient's insistence sine he had scheduled for outpatient follow with Urology and Nephrology outpatient). Currently, at the time my evaluation, he appears to be in no acute distress. Review of Systems 2 Review of Systems: As per HPI. 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 Code status: Full code. Smoking status: Never smoker Second hand tobacco smoke exposure: No Alcohol intake: current Drinks per week: 2 Substance use: never Substance use type: does not use Do You Feel Safe in your Home?: Yes Lack of Transportation: YES Lack of Food: Never True Current Housing: I Have Housing Concerned About Future Housing: No Difficulty Paying Gas/Electric Bills: No Difficulty Paying for Meds: No Currently Unemployed: No Education: Master's Degree or Higher Difficulty w/ Childcare or Family Care: No Living arrangements: with family Additional living arrangements comments: Lives with spouse in [place]. 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: No Meds Home Medications and Allergies Home Medications ?Medication ?Instructions ?Recorded ?Confirmed ?Type amlodipine 10 mg tablet 10 mg PO DAILY 11/28/19 05/10/25 History atorvastatin 20 mg tablet 20 mg PO DAILY 11/28/19 05/10/25 History magnesium chloride 71.5 mg 71.5 mg PO DAILY 11/28/19 05/10/25 History (magnesium chloride) tablet,delayed release (Nu-Mag) omeprazole 20 mg capsule,delayed 20 mg PO DAILY 11/28/19 05/10/25 History release ropinirole 3 mg tablet 3 mg PO HS 11/28/19 05/10/25 History sitagliptin phosphate 50 mg tablet 50 mg PO DAILY 11/28/19 05/10/25 History (Januvia) cholecalciferol (vitamin D3) 25 25 mcg PO DAILY 02/18/25 05/10/25 History mcg (1,000 unit) capsule cyanocobalamin (vitamin B-12) 2,000 mcg PO DAILY 02/18/25 05/10/25 History 1,000 mcg capsule loperamide 2 mg capsule 4 mg PO BID 02/27/25 05/10/25 History (Anti-Diarrheal (loperamide)) sodium bicarbonate 650 mg tablet 650 mg PO BID 2 weeks #28 tabs 04/11/25 05/10/25 Rx Allergies Allergy/AdvReac Type Severity Reaction Status Date / Time No Known Allergies Allergy Verified 05/10/25 12:29 Vital Signs Vital Signs Temp Pulse Resp BP Pulse Ox O2 Del Method FiO2 05/11/25 12:05 97.8 F 64 20 107/54 L 99 05/11/25 11:40 97.6 F 72 20 120/53 L 100 05/11/25 10:08 98.1 F 71 20 114/60 98 05/11/25 09:48 97.9 F 81 20 115/57 L 98 05/11/25 08:00 Room Air 05/11/25 08:00 97.9 F 78 20 122/53 L 100 05/11/25 05:15 67 05/11/25 04:00 97.6 F 69 18 120/60 100 05/11/25 04:00 67 05/11/25 04:00 Room Air 05/11/25 00:00 63 05/11/25 00:00 Room Air 05/11/25 00:00 97.7 F 64 18 113/63 100 05/10/25 21:35 71 95 Room Air 21 05/10/25 20:00 63 05/10/25 20:00 97.3 F L 65 20 109/61 100 05/10/25 20:00 Room Air 05/10/25 18:00 67 Exam 2 Narrative: GENERAL APPEARANCE: elderly but well developed well nourished male in no acute distress HEENT: normocephalic, atraumatic, normal conjunctiva and sclera, nares patient NECK: no lymphadenopathy, thyromegaly, or JVD MOUTH: normal lips, teeth, and gums CARDIOVASCULAR: RRR, normal S1 and S2, no rub RESPIRATORY: coarse breath sounds at bases ABDOMEN: soft, nontender, nondistended, positive bowel sounds present EXTREMITIES: no evidence of cyanosis, clubbing, or edema NEUROLOGICAL: alert and oriented x 3; CN II - XII intact bilaterally; no focal deficits noted Results Lab Results 05/13/25 04:17 05/13/25 04:17 Lab results: Most recent lab results Calcium 8.3 mg/dL (8.4-10.2) L 05/11/25 15:42 Phosphorus 7.1 mg/dL (2.5-4.5) H 05/11/25 15:42 Magnesium 1.6 mg/dL (1.6-2.3) 05/11/25 04:03 Urine Creatinine 61.7 mg/dL 05/10/25 18:49 Urine Creatinine Cancelled 05/10/25 18:49
[2025-05-11 16:13] LABS: Hematocrit 24.7 % (42.0-52.0); Hemoglobin 7.9 g/dL (14.0-18.0)
[2025-05-11] MEDS: TUBING, BLOOD PLUM PUMP TUBING 1 EACH XX (16:55)
[2025-05-11 17:24] LABS: Albumin Level 3.7 g/dL (3.5-5.1); Anion Gap 21 mmol/L (4-12); Blood Urea Nitrogen 123 mg/dL (9-20); Calcium 8.3 mg/dL (8.4-10.2); Carbon Dioxide 8 mmol/L (22-30); Chloride 106 mmol/L (98-107); Estimated CRCL calculation 8 ml/min; Estimated Glomerular Filt Rate 8; Glucose 163 mg/dL (65-110); Phosphorus 7.1 mg/dL (2.5-4.5); Potassium 4.5 mmol/L (3.4-5.0); Sodium 135 mmol/L (137-145)
[2025-05-11] MEDS: SODIUM BICARBONATE TAB 650 MG TABLET 1300 MG PO (18:52)
[2025-05-11] MEDS: rOPINIRole HCL 1 MG TABLET 3 MG PO (21:26)
--- NOTE | 2025-05-11 22:22 | P.HP_ITS ---
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 Code status: Full code. Smoking status: Never smoker Second hand tobacco smoke exposure: No Alcohol intake: current Drinks per week: 2 Substance use: never Substance use type: does not use Do You Feel Safe in your Home?: Yes Lack of Transportation: YES Lack of Food: Never True Current Housing: I Have Housing Concerned About Future Housing: No Difficulty Paying Gas/Electric Bills: No Difficulty Paying for Meds: No Currently Unemployed: No Education: Master's Degree or Higher Difficulty w/ Childcare or Family Care: No Living arrangements: with family Additional living arrangements comments: Lives with spouse in [place]. 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: No Meds Home Medications and Allergies Home Medications ?Medication ?Instructions ?Recorded ?Confirmed ?Type amlodipine 10 mg tablet 10 mg PO DAILY 11/28/19 05/10/25 History atorvastatin 20 mg tablet 20 mg PO DAILY 11/28/19 05/10/25 History magnesium chloride 71.5 mg 71.5 mg PO DAILY 11/28/19 05/10/25 History (magnesium chloride) tablet,delayed release (Nu-Mag) omeprazole 20 mg capsule,delayed 20 mg PO DAILY 11/28/19 05/10/25 History release ropinirole 3 mg tablet 3 mg PO HS 11/28/19 05/10/25 History sitagliptin phosphate 50 mg tablet 50 mg PO DAILY 11/28/19 05/10/25 History (Januvia) cholecalciferol (vitamin D3) 25 25 mcg PO DAILY 02/18/25 05/10/25 History mcg (1,000 unit) capsule cyanocobalamin (vitamin B-12) 2,000 mcg PO DAILY 02/18/25 05/10/25 History 1,000 mcg capsule loperamide 2 mg capsule 4 mg PO BID 02/27/25 05/10/25 History (Anti-Diarrheal (loperamide)) sodium bicarbonate 650 mg tablet 650 mg PO BID 2 weeks #28 tabs 04/11/25 05/10/25 Rx sulfamethoxazole 800 1 tablet PO HS 05/10/25 05/10/25 History mg-trimethoprim 160 mg tablet (Bactrim DS) Allergies Allergy/AdvReac Type Severity Reaction Status Date / Time No Known Allergies Allergy Verified 05/10/25 12:29 Vital Signs Vital Signs - 24 hr 05/11/25 00:00 05/11/25 00:00 05/11/25 00:00 Temperature 97.7 F Pulse Rate 64 63 Respiratory Rate 18 Blood Pressure 113/63 Pulse Oximetry 100 Oxygen Delivery Room Air 05/11/25 04:00 05/11/25 04:00 05/11/25 04:00 Temperature 97.6 F Pulse Rate 67 69 Respiratory Rate 18 Blood Pressure 120/60 Pulse Oximetry 100 Oxygen Delivery Room Air 05/11/25 05:15 05/11/25 08:00 05/11/25 08:00 Temperature 97.9 F Pulse Rate 67 78 Respiratory Rate 20 Blood Pressure 122/53 L Pulse Oximetry 100 Oxygen Delivery Room Air 05/11/25 08:00 05/11/25 09:48 05/11/25 10:00 Temperature 97.9 F Pulse Rate 72 81 80 Respiratory Rate 20 Blood Pressure 115/57 L Pulse Oximetry 98 Oxygen Delivery 05/11/25 10:08 05/11/25 11:40 05/11/25 12:00 Temperature 98.1 F 97.6 F Pulse Rate 71 72 Respiratory Rate 20 20 Blood Pressure 114/60 120/53 L Pulse Oximetry 98 100 Oxygen Delivery Room Air 05/11/25 12:00 05/11/25 12:05 05/11/25 14:00 Temperature 97.8 F Pulse Rate 73 64 89 Respiratory Rate 20 Blood Pressure 107/54 L Pulse Oximetry 99 Oxygen Delivery 05/11/25 16:00 05/11/25 16:00 05/11/25 16:00 Temperature 98.2 F Pulse Rate 78 82 Respiratory Rate 20 Blood Pressure 113/56 L Pulse Oximetry 100 Oxygen Delivery Room Air 05/11/25 18:00 05/11/25 20:00 Temperature 98.7 F Pulse Rate 75 76 Respiratory Rate 20 Blood Pressure 127/60 Pulse Oximetry 98 Oxygen Delivery H&P: Results Labs Labs: Short CBC 05/11/25 05/11/25 Range/Units 04:03 15:45 WBC 11.6 H (4.5-10.0) K/mm3 Hgb 6.8 L* 7.9 L (14.0-18.0) g/dL Hct 22.0 L 24.7 L (42.0-52.0) % Plt Count 206 (150-375) k/mm3 BMP 05/11/25 05/11/25 04:03 15:42 Sodium 133 L 135 L Potassium 4.7 4.5 Chloride 106 106 Carbon Dioxide 10 L 8 L BUN 134 H* D 123 H* D Creatinine 7.19 H 6.46 H Glucose 105 163 H Calcium 8.5 8.3 L Cardiac Enzymes 05/11/25 Range/Units 04:03 Total Creatine Kinase 20 L (55-170) U/L Liver Function 05/11/25 05/11/25 Range/Units 04:03 15:42 Total Bilirubin 0.5 (0.2-1.3) mg/dL AST 22 (17-59) U/L ALT 44 (6-50) U/L Alkaline Phosphatase 111 (38-126) U/L Albumin 3.4 L 3.7 (3.5-5.1) g/dL
[2025-05-12] VITALS (13 sets, daily range): BP systolic 115–138; BP diastolic 56–68; PULSE 68–89; RESP 16–20; TEMP 36.5–37; O2SAT 97–99
[2025-05-12 05:03] LABS: Mean Corpuscular Hemoglobin 28.2 pg (26-34); Mean Platelet Volume 10.5 fl (7.4-10.4); Platelet Count Result 171 k/mm3 (150-375); Red Blood Count 2.84 M/mm3 (4.6-6.20); Red Cell Distribution Width 15.7 % (11.5-14.5); White Blood Count 11.1 K/mm3 (4.5-10.0)
[2025-05-12 05:25] LABS: Alanine Aminotransferase 28 U/L (6-50); Albumin Level 3.8 g/dL (3.5-5.1); Alkaline Phosphatase 84 U/L (38-126); Anion Gap 17 mmol/L (4-12); Aspartate Amino Transferase 20 U/L (17-59); Bilirubin,Total 0.7 mg/dL (0.2-1.3); Calcium 8.5 mg/dL (8.4-10.2); Carbon Dioxide 13 mmol/L (22-30); Chloride 106 mmol/L (98-107); Estimated CRCL calculation 8 ml/min; Estimated Glomerular Filt Rate 8; Glucose 117 mg/dL (65-110); Potassium 4.1 mmol/L (3.4-5.0); Sodium 136 mmol/L (137-145); Total Protein 7.2 g/dL (6.3-8.2)
[2025-05-12 05:26] LABS: Blood Urea Nitrogen 113 mg/dL (9-20)
[2025-05-12 05:58] LABS: Hepatitis B Core Ab Total NON-REACTIVE (NON-REACTIVE)
[2025-05-12] MEDS: SODIUM BICARBONATE 8.4% 75 MEQ in SODIUM CHLORIDE 0.45% 1,000 ML 100 MEQ IV CONT ×2 (06:09→16:06)
--- NOTE | 2025-05-12 06:56 | P.CDI_ITS ---
CDI Query Clarification Request BMI: 20.6 Nutritional Diagnostic Statement: Please refer to the comprehensive nutrition assessment for further information. If you agree with diagnosis of Severe protein calorie malnutrition related to chronic kidney disease, mouth pain as evidenced by weight loss 16%/3 months; intakes <75% needs >1 month; severe muscle wasting and fat loss. Please specify severity if known: * Mild * Moderate * Severe * Other/Unknown <Keisha Vargas RN - Last Filed: 05/12/25 06:57> Clarified Diagnosis Clarified Diagnosis: severe protein calorie malnutrition <Dipti Washburn PA-C - Last Filed: 05/12/25 07:17>
--- NOTE | 2025-05-12 07:17 | P.PNIM_ITS ---
Progress Note: A&P Assessment and Plan (1) Sepsis: Qualifiers: Acute renal failure type: unspecified Sepsis acute organ dysfunction status: with acute organ dysfunction Sepsis type: sepsis due to unspecified or ganism Severe sepsis acute organ dysfunction type: acute renal failure Severe sepsis shock status: without septic shock Qualified Code(s): A41.9 - Sepsis, unspecified organism; R65.20 - Severe sepsis without septic shock; N17.9 - Acute kidney failure, unspecified Code(s): A41.9 - Sepsis, unspecified organism Status: Acute Assessment and Plan: - meets SIRS criteria: WBC, RR - lactic acid: 2.5 received sepsis bolus -> 1.9 - lactic elevated, procalcitonin 4.3 (suggestive of sepsis) - Received sepsis fluids - suspected source: UTI and pneumonia - started on cefepime on 05/10, transitioned to Unasyn 3 g daily given concern for Enterococcus on 05/11, transition back to cefepime on 05/12, also started on azithromycin on 05/12 - blood cultures drawn on 05/10, NGTD - UA suggestive of UTI, see below - urine culture grew Enterobacter cloacae -chest x-ray showed bibasilar airspace disease may represent atelectasis or pneumonia - patient also has sore throat, small apthous ulcer to roof of mouth x1. Lymphadenopathy noted the postauricular on the right with significant tenderness. CT soft tissue of the neck showed right pleural effusion and atherosclerotic changes of carotids, otherwise normal hemodynamic stability (2) Acute on chronic kidney failure: Qualifiers: Acute renal failure type: unspecified Chronic kidney disease stage: unspecified stage Qualified Code(s): N17.9 - Acute kidney failure, unspecified; N18.9 - Chronic kidney disease, unspecified Code(s): N17.9 - Acute kidney failure, unspecified; N18.9 - Chronic kidney disease, unspecified Status: Acute Assessment and Plan: - Acute on chronic renal failure. S/p left nephrectomy. Follows with Dr. Olvin Dixon at [facility] for management of his CKD - previously evaluated by Nephrology in March of 2025. At that time CT showed hydronephrosis but stent in good position, UA suggestive of infection, urine electrolytes non pre renal, CPK normal/low. Etiology for MERI unclear, possible volume depletion, possible transient obstruction, infection, continued use of irbesartan. CKD felt to be secondary to nephrectomy, hypertension, vascular disease, age related changes. - K 6.0, presumed secondary to worsening renal function. Returned to WNL, currently 4.1. - previous imaging: Renal US, 04/09/25: Chronic moderate right hydronephrosis Renal Scan NM, 04/10/25: Markedly delayed time to peak activity in the right kidney which could be due to high-grade obstruction with moderate right hydronephrosis despite the presence of an internal ureteral stent on recent prior CT versus severe nonspecific nephropathy of other indeterminate etiology. - trend renal function - nephrology consulted, Archana KOLB. (3) Acute hyperkalemia: Code(s): E87.5 - Hyperkalemia Status: Acute Assessment and Plan: - K 6.0 on admission, K 4.1 on am labs - initial treatment with calcium, insulin/dextrose, and sodium bicarbonate on 05/10 - Placed on tele - Continue to monitor (4) UTI (urinary tract infection): Qualifiers: Hematuria presence: without hematuria Urinary tract infection type: acute cystitis Qualified Code(s): N30.00 - Acute cystitis without hematuria Code(s): N39.0 - Urinary tract infection, site not specified Status: Acute Assessment and Plan: - UA: Turbid, 3+ protein, 3+ blood, 3+ leuk esterase, greater than 100 RBC and WBC, 4+ bacteria, no epithelial cells. - UC pending, Enterobacter cloacae - previous micro reviewed: Enterococcus 04/06/25 Enterobacter on 03/10 with resistance to Augmentin, Ancef, and Zosyn. Intermediate to ceftazidime. - started on cefepime on 05/10, transitioned to Unasyn 3 g daily given kidney function, transitioned back to cefepime on 05/12 - antipyretics p.r.n., IV fluids (5) Metabolic acidosis: Code(s): E87.20 - Acidosis, unspecified Status: Acute Assessment and Plan: - CO2 <5 on admission, currently 13 on am labs - started on Bicarb gtt at 75 mL/hr. Hold oral bicarb. - Nephrology following Patient remains alert and oriented. Bicarb improving on bicarb drip. Patient will require oral supplementation at time of discharge. (6) Lymphadenopathy, periauricular: Code(s): R59.0 - Localized enlarged lymph nodes Status: Acute Assessment and Plan: Right periauricular edema with tenderness to palpation started 05/10. No redness, warmth, or associated rash. Fluid seen behind TM on otoscope. DDx includes parotitis, mastoiditis, lymphedema, abscess formation vs other CT soft tissue neck unremarkable US showed echogenic Soft tissue area with vascularity is seen measuring 8.2 x 2.7 x 5 cm suggestive of a lipoma Lipoma unlikely given how quickly the area developed (within 24 hours) Monitor Swelling has improved. Continue to monitor. (7) Anemia: Qualifiers: Anemia type: due to chronic kidney disease Chronic kidney disease stage: unspecified stage Qualified Code(s): N18.9 - Chronic kidney disease, unspecified; D63.1 - Anemia in chronic kidney disease Code(s): D64.9 - Anemia, unspecified Status: Chronic Assessment and Plan: - Hgb 9.1 on admission, previously 7.5 on 04/11 - H/H 8/25 on am labs - H/H 6.8/22 on 05/11, given pRBC x1. H/H responded appropriately. - transfuse if <7 - trend H&H - presumed anemia secondary to CKD, no signs of active bleeding (8) Hypertension: Qualifiers: Hypertension type: primary hypertension Qualified Code(s): I10 - Essential (primary) hypertension Code(s): I10 - Essential (primary) hypertension Status: Chronic Assessment and Plan: Chronic, continue home medications - Amlodipine 10 mg daily - Blood pressures remain stable, continue to monitor (9) Severe protein-calorie malnutrition: Code(s): E43 - Unspecified severe protein-calorie malnutrition Status: Acute Assessment and Plan: supplement per nutrition Time Spent With Patient Time with patient: 25 - 35 minutes Subjective Date/time seen: 05/12/25 07:17 Interval history: 74 year old male with past medical history of CKD, carcinoma of colorectal region (s/p radiation, total colectomy, and partial small-bowel resection), HTN, RLS, HLD, Crohn's disease, kidney stones, nephrectomy (left, 2012), 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 Patient is pleasant sitting up comfortably in bed with at bedside. He stat es that his shortness of breath and cough has significantly improved since admission. He also notes that his dyspnea with exertion has improved as well. He continues to endorse tenderness to his right periauricular region but notes that the swelling has gone down since yesterday. He denies any tinnitus, difficulty swallowing, or ear pain. He does note that he developed bilateral swelling of the D IP joints to the 2nd and 3rd finger. He states that this happened 1 other time when on ciprofloxacin about a month ago. He denies a history of rheumatoid arthritis but does note a family history of it. He also denies history of gout. Urine culture has come back as Enterobacter so will transition patient off of the Unasyn as this is the only recent medication change. Patient has no other complaints denying chest pain, palpitations, nausea/vomiting, abdominal pain, urinary symptoms, and dizziness/lightheadedness. Review of Systems Review of Systems: All systems reviewed & are unremarkable except as noted in HPI and below Exam Narrative: AF HR 79 RR 18 SpO2 98 BP 129/57 General: male in no acute respiratory distress who is nontoxic appearing, lying semi recumbent in bed. HEENT: Normocephalic. Atraumatic.Extraocular movement intact. Sclera clear and anicteric. Right periauricular edema improved from yesterday with tenderness to palpation. No redness or warmth. Fluid seen behind TM on otoscope. No saliva expressed on palpation. Chest: Lungs with diminished on auscultation to right > left base. No wheezes or crackles. CV: Heart was regular rate and rhythm. S1/S2. No murmurs, gallops, or rubs. Abd: Abdomen was soft. Nontender. Nondistended. Positive bowel sounds. Neuro: Patient is alert and oriented x4. Speech is clear. Psych: Normal mood and affect. Patient is pleasant and cooperative. Ext: bilateral swelling of the DIP joints to the 2nd and 3rd finger with slight tenderness, without redness or warmth Skin: Warm and dry. No rashes noted. Objective Data Vital Signs Vital Signs: Vital Signs - 24 hr 05/11/25 08:00 05/11/25 08:00 05/11/25 08:00 Temperature 97.9 F Pulse Rate 78 72 Respiratory Rate 20 Blood Pressure 122/53 L Pulse Oximetry 100 Oxygen Delivery Room Air 05/11/25 09:48 05/11/25 10:00 05/11/25 10:08 Temperature 97.9 F 98.1 F Pulse Rate 81 80 71 Respiratory Rate 20 20 Blood Pressure 115/57 L 114/60 Pulse Oximetry 98 98 Oxygen Delivery 05/11/25 11:40 05/11/25 12:00 05/11/25 12:00 Temperature 97.6 F Pulse Rate 72 73 Respiratory Rate 20 Blood Pressure 120/53 L Pulse Oximetry 100 Oxygen Delivery Room Air 05/11/25 12:05 05/11/25 14:00 05/11/25 16:00 Temperature 97.8 F 98.2 F Pulse Rate 64 89 78 Respiratory Rate 20 20 Blood Pressure 107/54 L 113/56 L Pulse Oximetry 99 100 Oxygen Delivery 05/11/25 16:00 05/11/25 16:00 05/11/25 18:00 Temperature Pulse Rate 82 75 Respiratory Rate Blood Pressure Pulse Oximetry Oxygen Delivery Room Air 05/11/25 20:00 05/11/25 20:00 05/11/25 20:00 Temperature 98.7 F Pulse Rate 76 83 Respiratory Rate 20 Blood Pressure 127/60 Pulse Oximetry 98 Oxygen Delivery Room Air 05/11/25 23:43 05/12/25 00:00 05/12/25 00:00 Temperature 98.6 F Pulse Rate 77 70 Respiratory Rate 20 Blood Pressure 129/57 L Pulse Oximetry 97 Oxygen Delivery Room Air 05/12/25 02:00 05/12/25 03:31 05/12/25 04:00 Temperature 98.6 F Pulse Rate 71 80 Respiratory Rate 20 Blood Pressure 127/57 L Pulse Oximetry 97 Oxygen Delivery Room Air 05/12/25 04:00 Temperature Pulse Rate 79 Respiratory Rate Blood Pressure Pulse Oximetry Oxygen Delivery Intake/Output Intake/Output: Intake & Output 05/09/25 05/10/25 05/11/25 05/12/25 23:59 23:59 23:59 23:59 Intake Total 1050 4450.0 550 Output Total 300 1725 200 Balance 750 2725.0 350 Meds/Results Medications: Active Medications Generic Name Dose Route Start Last Admin Trade Name Freq PRN Reason Stop Dose Admin Acetaminophen 650 mg 05/10/25 15:29 Acetaminophen 325 Mg Tablet PO Q4H PRN Mild Pain (1-3) or Fever Hydrocodone Bitart/Acetaminophen 1 tab 05/10/25 15:29 Hydrocodone/Acetaminophen (*Crx) 5-325 Mg Tablet PO Q4H PRN Pain Rated 4-6 Amlodipine Besylate 10 mg 05/11/25 09:00 05/11/25 08:46 Amlodipine Besylate 10 Mg Tablet PO 10 mg DAILY KIRSTEN Administration Atorvastatin Calcium 20 mg 05/11/25 09:00 05/11/25 08:46 Atorvastatin 20 Mg Tablet PO 20 mg DAILY KIRSTEN Administration Cyanocobalamin 2,000 mcg 05/11/25 09:00 05/11/25 08:46 Cyanocobalamin 1,000 Mcg Tablet PO 2,000 mcg DAILY KIRSTEN Administration Dextrose 12.5 gm 05/10/25 21:19 Dextrose 50% 25 Gm/50 Ml Syringe IV PUSH PRN PRN Hypoglycemia Protocol Epoetin Adam-epbx 20,000 units 05/12/25 09:00 Epoetin Adam-Epbx 20,000 Units/Ml Vial SUB-Q 05/12/25 09:01 ONCE ONE Glucagon 1 mg 05/10/25 21:19 Glucagon For Inj 1 Mg Vial IM PRN PRN Hypoglycemia Protocol Glucose 15 gm 05/10/25 21:19 Glucose Oral Gel 15 Gm Of Glucse In 37.5 Gm Tube PO PRN PRN Hypoglycemia Protocol Sodium Bicarbonate 75 meq/ 1,075 mls @ 100 mls/hr 05/10/25 17:30 05/12/25 06:09 Sodium Chloride IV CONT 100 mls/hr .[id number] KIRSTEN Administration Dextrose 1,000 mls @ 100 mls/hr 05/10/25 21:19 Dextrose 5% 1,000 Ml IVPB PRN PRN Hypoglycemia Protocol Ampicillin Sodium/Sulbactam Sodium 3 gm in 100 mls @ 200 mls/hr 05/11/25 09:00 05/11/25 09:31 Unasyn 3 Gm/Ns 100 Ml IVPB Infused DAILY KIRSTEN Infusion Loperamide HCl 2 mg 05/10/25 21:33 Loperamide Hcl 2 Mg Capsule PO Q2H PRN Diarrhea Magnesium Chloride 64 mg 05/11/25 09:00 05/11/25 08:47 Magnesium Chloride 64 Mg Tablet PO 64 mg DAILY KIRSTEN Administration Morphine Sulfate 2 mg 05/10/25 15:29 Morphine Sulfate (*Crx) 2 Mg/Ml Inj IV PUSH Q2H PRN Pain Rated 7-10 Ondansetron HCl 4 mg 05/10/25 15:29 Ondansetron Inj 4 Mg/2 Ml Vial IV PUSH Q4H PRN Nausea Pantoprazole Sodium 40 mg 05/11/25 09:00 05/11/25 08:46 Pantoprazole 40 Mg Tablet PO 40 mg QAM KIRSTEN Administration Ropinirole HCl 3 mg 05/10/25 21:30 05/11/25 21:26 Ropinirole Hcl 1 Mg Tablet PO 3 mg HS KIRSTEN Administration Sitagliptin Phosphate 50 mg 05/11/25 09:00 05/11/25 08:47 Sitagliptin Phosphate 50 Mg Tablet PO 50 mg DAILY KIRSTEN Administration Sodium Bicarbonate 1,300 mg 05/11/25 17:45 05/11/25 18:52 Sodium Bicarbonate Tab 650 Mg Tablet PO 1,300 mg BID KIRSTEN Administration Vitamin D 25 mcg 05/11/25 09:00 05/11/25 08:45 Cholecalciferol (Vitamin D3) 25 Mcg (1,000 Units) Tablet PO 25 mcg DAILY KIRSTEN Administration Radiology Results: ITS Impressions Soft Tissue Neck CT 05/10/25 22:02 IMPRESSION: 1. Right pleural effusion. 2. Atherosclerotic changes of the carotid arteries.Otherwise, Normal CT neck. Chest X-Ray 05/11/25 10:03 Impression: 1: Bibasilar airspace disease may represent atelectasis or pneumonia. Carotid Doppler Study 05/11/25 13:04 IMPRESSION: 1. Less than 50% stenosis in the right internal carotid artery by sonographic criteria. 2. Less than 50% stenosis in the left internal carotid artery by sonographic criteria. Labs Labs: Laboratory Results - last 24 hr 05/11/25 05/11/25 05/11/25 04:03 06:49 15:42 WBC RBC Hgb Hct MCV MCH MCHC RDW Plt Count MPV Sodium 135 L Potassium 4.5 Chloride 106 Carbon Dioxide 8 L Anion Gap 21 H BUN 123 H* D Creatinine 6.46 H Estim Creat Clear Calc 8 Estimated GFR 8 L Glucose 163 H Calcium 8.3 L Phosphorus 7.1 H Total Bilirubin AST ALT Alkaline Phosphatase Total Protein Albumin 3.7 Hep B Core Total Ab Non-reactive Blood Type A Positive Antibody Screen Negative Crossmatch See Detail 05/11/25 05/12/25 15:45 04:11 WBC 11.1 H RBC 2.84 L Hgb 7.9 L 8.0 L Hct 24.7 L 25.0 L MCV 88.0 MCH 28.2 MCHC 32.0 RDW 15.7 H Plt Count 171 MPV 10.5 H Sodium 136 L Potassium 4.1 Chloride 106 Carbon Dioxide 13 L Anion Gap 17 H BUN 113 H* D Creatinine 6.46 H Estim Creat Clear Calc 8 Estimated GFR 8 L Glucose 117 H Calcium 8.5 Phosphorus Total Bilirubin 0.7 AST 20 ALT 28 Alkaline Phosphatase 84 Total Protein 7.2 Albumin 3.8 Hep B Core Total Ab Blood Type Antibody Screen Crossmatch Quality VTE Prophylaxis VTE prophylaxis: mechanical ordered
[2025-05-12] MEDS: amLODIPine BESYLATE 10 MG TABLET PO (09:16)
[2025-05-12] MEDS: PANTOPRAZOLE 40 MG TABLET PO (09:16)
[2025-05-12] MEDS: ATORVASTATIN 20 MG TABLET PO (09:16)
[2025-05-12] MEDS: SITagliptin PHOSPHATE 50 MG TABLET PO (09:16)
[2025-05-12] MEDS: SODIUM BICARBONATE TAB 650 MG TABLET 1300 MG PO ×2 (09:16→16:02)
[2025-05-12] MEDS: CYANOCOBALAMIN 1,000 MCG TABLET 2000 MCG PO (09:16)
[2025-05-12] MEDS: MAGNESIUM CHLORIDE 64 MG TABLET PO (09:16)
[2025-05-12] MEDS: CHOLECALCIFEROL (VITAMIN D3) 25 MCG (1,000 UNITS) TABLET PO (09:16)
--- NOTE | 2025-05-12 09:20 | PC.NURSE ---
Spoke with ERNESTINA Martines regarding pt's concerns of allergic reaction from the antibiotic. Pt complains of swollen and painful joints in his fingers, hands, and wrist. Pt's right hand has notable swelling to several finger joints. Pt's left hand also has notable swelling to the wrist and multiple finger joints as well. Pt complains of having this issue once before after taking a sulfa-based antibiotic. Pt asking to hold the antibiotic until seen by the provider. PA updated with request from pt by this RN. Morning dose of Ampicillin IVPB held until seen by provider.
[2025-05-12] MEDS: ACETAMINOPHEN 325 MG TABLET 650 MG PO ×2 (09:23→13:32)
[2025-05-12] MEDS: EPOETIN ALFA-EPBX 20,000 UNITS/ML VIAL 20000 UNITS SUB-Q (09:23)
--- NOTE | 2025-05-12 10:42 | P.PNNP_ITS ---
Progress Note: A&P Assessment and Plan (1) Acute kidney injury: Code(s): N17.9 - Acute kidney failure, unspecified Status: Acute Assessment and Plan: * slow improvement noted * as noted by admission creatinine * records reviewed/noted over recent hospitalizations * creatinine did improve to 3.0mg/dl (on 03/09/25) * however, did worsen/rise again given previous bacteremia/infection on February 2025 admission - discharge creatinine was 4.16mg/dl * creatinine on admission in March 2025 was 10.98mg/dl - discharged with a creatinine of 6.45mg/dl; unclear if her kidney function improved to previous baseline following that discharge * admitted this time with a creatinine of 8.2mg/dl * evaluations to date (previous + current hospitalization) noted: * CT of A/P showed hydronephrosis (but ureteral stent in good position) * UA suggestive of infection * urine studies non-prerenal * element of volume depletion (?) * normal CPK * moderate proteinuria * trial of IVFs * remains at risk for [employer]/dialysis (see discussion below) * follow trend of repeat labs and UOP (2) Chronic kidney disease, stage IV (severe): Code(s): N18.4 - Chronic kidney disease, stage 4 (severe) Status: Chronic Assessment and Plan: * creatinine was 2.35mg/dl in December 2024 * this places him around CKD stage 3b/stage 4 * likely a result of his nephrectomy, hypertension, vascular disease and age- related change * given recent hospitalizations since January 2025 (for obstruction, infection/sepsis...etc) -- he may have a new baseline... * follows with Dr. Olvin Dixon at [facility] for management of his CKD (3) Hyperkalemia: Code(s): E87.5 - Hyperkalemia Status: Acute Assessment and Plan: * due to MERI/ARF * s/p medical management * follow trend of K+ level (4) Metabolic acidosis: Code(s): E87.20 - Acidosis, unspecified Status: Acute Assessment and Plan: * due to MERI/ARF * quite severe on presentation (CO2 <5) * on bicarb fluids (1/2NS + 75MEQ sodium bicarbonate) * this should help improve K+ as well * on oral bicarbonate as well * follow CO2 levels (5) UTI (urinary tract infection): Qualifiers: Hematuria presence: without hematuria Urinary tract infection type: a cute cystitis Qualified Code(s): N30.00 - Acute cystitis without hematuria Code(s): N39.0 - Urinary tract infection, site not specified Status: Acute Assessment and Plan: * admission/outpatient UA highly suggestive: * urine culture results - Enterobacter cloacae * blood culture negative to date * on antibiotics (6) Anemia: Qualifiers: Anemia type: due to chronic kidney disease Chronic kidney disease stage: unspecified stage Qualified Code(s): N18.9 - Chronic kidney disease, unspecified; D63.1 - Anemia in chronic kidney disease Code(s): D64.9 - Anemia, unspecified Status: Chronic Assessment and Plan: * related to underlying CKD likely worsened by MERI * PRBC transfusion per protocol * Epogen while hospitalized * follow trend of H/H (7) Hypertension: Qualifiers: Hypertension type: primary hypertension Qualified Code(s): I10 - Essential (primary) hypertension Code(s): I10 - Essential (primary) hypertension Status: Chronic Assessment and Plan: * reasonable control at this time * follow trend of hemodynamics (8) Hydroureteronephrosis: Code(s): N13.30 - Unspecified hydronephrosis Status: Acute Assessment and Plan: * as noted by previous imaging studies * s/p cystoscopy, right retrograde pyelogram, right ureteral stent insertion (on 02/20) * right ureteral stent removal (on 03/09) * right ureteral stent replacement (on 03/10) as renal function acutely worsened after stent removal * follows with Urology as an outpatient Another long and extensive discussion (greater than 20 minutes) with the patient and his regarding his acute kidney injury on CKD -- no absolute indications for renal replacement therapy/dialysis but I suspect he might need it in the near future given his recurrent bouts of acute renal failure over the last several months depending where his renal function/creatinine stabilizes too. I reenforced the need to for timely follow-up with his primary sap senior developer to further discuss these issues. Will continue to follow L Subjective Date/time seen: 05/12/25 10:42 Interval history: Follow-up for acute kidney injury/acute renal failure on chronic kidney disease. Renal function/creatinine/BUN improving albeit slowly with current therapy/interventions; no apparent distress noted at the time of my visit; no issues/events overnight or earlier this morning. Exam 2 Narrative: General: elderly but WD/WN male in NAD Heart: normal S1 and S2; no rub Lungs: clear to auscultation Abdomen: soft, nontender, nondistended, positive bowel sounds Extremities: no cyanosis or clubbing; no edema Skin: warm and dry Objective Data Vital Signs Vital Signs: Vital Signs Temp Pulse Resp BP Pulse Ox O2 Del Method 05/12/25 10:00 79 05/12/25 08:00 86 05/12/25 08:00 85 20 98 Room Air 05/12/25 07:37 98.2 F 85 20 138/60 98 05/12/25 04:00 79 05/12/25 04:00 98.6 F 80 20 127/57 L 97 05/12/25 03:31 Room Air 05/12/25 02:00 71 05/12/25 00:00 70 05/12/25 00:00 Room Air 05/11/25 23:43 98.6 F 77 20 129/57 L 97 05/11/25 20:00 83 05/11/25 20:00 Room Air 05/11/25 20:00 98.7 F 76 20 127/60 98 05/11/25 18:00 75 Intake/Output Intake/Output: Intake & Output 05/09/25 05/10/25 05/11/25 05/12/25 23:59 23:59 23:59 23:59 Intake Total 1050 4450.0 2065 Output Total 300 1725 1300 Balance 750 2725.0 765 Meds/Results Medications: Active Medications Generic Name Dose Route Start Last Admin Trade Name Freq PRN Reason Stop Dose Admin Acetaminophen 650 mg 05/10/25 15:29 05/12/25 13:32 Acetaminophen 325 Mg Tablet PO 650 mg Q4H PRN Administration Mild Pain (1-3) or Fever Hydrocodone Bitart/Acetaminophen 1 tab 05/10/25 15:29 Hydrocodone/Acetaminophen (*Crx) 5-325 Mg Tablet PO Q4H PRN Pain Rated 4-6 Amlodipine Besylate 10 mg 05/11/25 09:00 05/12/25 09:16 Amlodipine Besylate 10 Mg Tablet PO 10 mg DAILY KIRSTEN Administration Atorvastatin Calcium 20 mg 05/11/25 09:00 05/12/25 09:16 Atorvastatin 20 Mg Tablet PO 20 mg DAILY KIRSTEN Administration Cyanocobalamin 2,000 mcg 05/11/25 09:00 05/12/25 09:16 Cyanocobalamin 1,000 Mcg Tablet PO 2,000 mcg DAILY KIRSTEN Administration Dextrose 12.5 gm 05/10/25 21:19 Dextrose 50% 25 Gm/50 Ml Syringe IV PUSH PRN PRN Hypoglycemia Protocol Glucagon 1 mg 05/10/25 21:19 Glucagon For Inj 1 Mg Vial IM PRN PRN Hypoglycemia Protocol Glucose 15 gm 05/10/25 21:19 Glucose Oral Gel 15 Gm Of Glucse In 37.5 Gm Tube PO PRN PRN Hypoglycemia Protocol Sodium Bicarbonate 75 meq/ 1,075 mls @ 100 mls/hr 05/10/25 17:30 05/12/25 16:06 Sodium Chloride IV CONT 100 mls/hr .[id number] KIRSTEN Administration Dextrose 1,000 mls @ 100 mls/hr 05/10/25 21:19 Dextrose 5% 1,000 Ml IVPB PRN PRN Hypoglycemia Protocol Cefepime HCl 1 gm in 50 mls @ 100 mls/hr 05/12/25 16:00 05/12/25 16:00 Maxipime 1 Gm/Ns 50 Ml IVPB 100 mls/hr Q12H KIRSTEN Administration Azithromycin 500 mg in 250 mls @ 250 mls/hr 05/12/25 15:00 05/12/25 16:01 Zithromax IVPB 250 mls/hr Q24H KIRSTEN Administration Loperamide HCl 2 mg 05/10/25 21:33 Loperamide Hcl 2 Mg Capsule PO Q2H PRN Diarrhea Magnesium Chloride 64 mg 05/11/25 09:00 05/12/25 09:16 Magnesium Chloride 64 Mg Tablet PO 64 mg DAILY KIRSTEN Administration Morphine Sulfate 2 mg 05/10/25 15:29 Morphine Sulfate (*Crx) 2 Mg/Ml Inj IV PUSH Q2H PRN Pain Rated 7-10 Ondansetron HCl 4 mg 05/10/25 15:29 Ondansetron Inj 4 Mg/2 Ml Vial IV PUSH Q4H PRN Nausea Pantoprazole Sodium 40 mg 05/11/25 09:00 05/12/25 09:16 Pantoprazole 40 Mg Tablet PO 40 mg QAM KIRSTEN Administration Ropinirole HCl 3 mg 05/10/25 21:30 05/11/25 21:26 Ropinirole Hcl 1 Mg Tablet PO 3 mg HS KIRSTEN Administration Sitagliptin Phosphate 50 mg 05/11/25 09:00 05/12/25 09:16 Sitagliptin Phosphate 50 Mg Tablet PO 50 mg DAILY KIRSTEN Administration Sodium Bicarbonate 1,300 mg 05/11/25 17:45 05/12/25 16:02 Sodium Bicarbonate Tab 650 Mg Tablet PO 1,300 mg BID KIRSTEN Administration Vitamin D 25 mcg 05/11/25 09:00 05/12/25 09:16 Cholecalciferol (Vitamin D3) 25 Mcg (1,000 Units) Tablet PO 25 mcg DAILY KIRSTEN Administration Radiology Results: ITS Impressions Soft Tissue Neck CT 05/10/25 22:02 IMPRESSION: 1. Right pleural effusion. 2. Atherosclerotic changes of the carotid arteries.Otherwise, Normal CT neck. Chest X-Ray 05/11/25 10:03 Impression: 1: Bibasilar airspace disease may represent atelectasis or pneumonia. Carotid Doppler Study 05/11/25 13:04 IMPRESSION: 1. Less than 50% stenosis in the right internal carotid artery by sonographic criteria. 2. Less than 50% stenosis in the left internal carotid artery by sonographic criteria. Labs Labs: Laboratory Tests 05/12/25 04:11 05/12/25 04:11 Calcium 8.5 Total Bilirubin 0.7 AST 20 ALT 28 Alkaline Phosphatase 84 Total Protein 7.2 Albumin 3.8 Microbiology 05/10/25 14:54 Urine Clean Catch Urine Culture Reflexed - Final Enterobacter cloacae complex 05/10/25 13:26 Blood Blood Culture - Preliminary 05/10/25 13:04 Blood Blood Culture - Preliminary
[2025-05-12] MEDS: CEFEPIME 1 GM/NS 50 ML 1 GM/50 ML BAG IVPB (16:00)
[2025-05-12] MEDS: AZITHROMYCIN 500 MG/NS 250 ML 500 MG/250 ML BAG 250 MG IVPB (16:01)
[2025-05-12 18:17] LABS: Albumin Level 3.4 g/dL (3.5-5.1); Anion Gap 17 mmol/L (4-12); Blood Urea Nitrogen 98 mg/dL (9-20); Carbon Dioxide 16 mmol/L (22-30); Chloride 102 mmol/L (98-107); Estimated CRCL calculation 10 ml/min; Estimated Glomerular Filt Rate 11; Glucose 223 mg/dL (65-110); Phosphorus 5.5 mg/dL (2.5-4.5); Potassium 3.8 mmol/L (3.4-5.0); Sodium 135 mmol/L (137-145)
[2025-05-13] VITALS (8 sets, daily range): BP systolic 103–156; BP diastolic 61–69; PULSE 69–103; RESP 17–18; TEMP 36.4–36.8; O2SAT 94–99
[2025-05-13] MEDS: SODIUM BICARBONATE 8.4% 75 MEQ in SODIUM CHLORIDE 0.45% 1,000 ML 100 MEQ IV CONT (03:54)
[2025-05-13] MEDS: CEFEPIME 1 GM/NS 50 ML 1 GM/50 ML BAG IVPB (03:56)
[2025-05-13 04:28] LABS: Hematocrit 27.3 % (42.0-52.0); Hemoglobin 8.8 g/dL (14.0-18.0); Mean Corpuscular HGB Conc 32.2 g/dl (32-36); Mean Corpuscular Hemoglobin 28.6 pg (26-34); Mean Corpuscular Volume 88.6 fl (80-100); Mean Platelet Volume 9.9 fl (7.4-10.4); Platelet Count Result 166 k/mm3 (150-375); Red Blood Count 3.08 M/mm3 (4.6-6.20); Red Cell Distribution Width 15.7 % (11.5-14.5); White Blood Count 10.7 K/mm3 (4.5-10.0)
[2025-05-13 05:08] LABS: Alanine Aminotransferase 28 U/L (6-50); Albumin Level 3.6 g/dL (3.5-5.1); Alkaline Phosphatase 97 U/L (38-126); Anion Gap 15 mmol/L (4-12); Aspartate Amino Transferase 21 U/L (17-59); Bilirubin,Total 0.6 mg/dL (0.2-1.3); Blood Urea Nitrogen 87 mg/dL (9-20); Calcium 8.4 mg/dL (8.4-10.2); Carbon Dioxide 19 mmol/L (22-30); Chloride 102 mmol/L (98-107); Estimated CRCL calculation 11 ml/min; Estimated Glomerular Filt Rate 11; Glucose 108 mg/dL (65-110); Potassium 3.8 mmol/L (3.4-5.0); Sodium 136 mmol/L (137-145); Total Protein 7.2 g/dL (6.3-8.2)
--- NOTE | 2025-05-13 09:01 | P.PNIM_ITS ---
Progress Note: A&P Assessment and Plan (1) Sepsis: Qualifiers: Sepsis type: sepsis due to unspecified organism Sepsis acute organ dysfunction status: with acute organ dysfunction Severe sepsis acute organ dysfunction type: acute renal failure Acute renal failure type: unspecified Severe sepsis shock status: without septic shock Qualified Code(s): A41.9 - Sepsis, unspecified organism; R65.20 - Severe sepsis without septic shock; N17.9 - Acute kidney failure, unspecified Code(s): A41.9 - Sepsis, unspecified organism Status: Acute Assessment and Plan: - meets SIRS criteria: WBC, RR - lactic acid: 2.5 received sepsis bolus -> 1.9 - lactic elevated, procalcitonin 4.3 (suggestive of sepsis) - Received sepsis fluids - suspected source: UTI and pneumonia - started on cefepime on 05/10, transitioned to Unasyn 3 g daily given concern for Enterococcus on 05/11, transition back to cefepime on 05/12, also started on azithromycin on 05/12 - blood cultures drawn on 05/10, NGTD - UA suggestive of UTI, see below - urine culture grew Enterobacter cloacae -chest x-ray showed bibasilar airspace disease may represent atelectasis or pneumonia - patient also has sore throat, small apthous ulcer to roof of mouth x1. Lymphadenopathy noted the postauricular on the right with significant tenderness. CT soft tissue of the neck showed right pleural effusion and atherosclerotic changes of carotids, otherwise normal hemodynamic stability (2) Acute on chronic kidney failure: Qualifiers: Acute renal failure type: unspecified Chronic kidney disease stage: unspecified stage Qualified Code(s): N17.9 - Acute kidney failure, unspecified; N18.9 - Chronic kidney disease, unspecified Code(s): N17.9 - Acute kidney failure, unspecified; N18.9 - Chronic kidney disease, unspecified Status: Acute Assessment and Plan: - Acute on chronic renal failure. S/p left nephrectomy. Follows with Dr. Olvin Dixon at [facility] for management of his CKD - previously evaluated by Nephrology in March of 2025. At that time CT showed hydronephrosis but stent in good position, UA suggestive of infection, urine electrolytes non pre renal, CPK normal/low. Etiology for MERI unclear, possible volume depletion, possible transient obstruction, infection, continued use of irbesartan. CKD felt to be secondary to nephrectomy, hypertension, vascular disease, age related changes. - K 6.0, presumed secondary to worsening renal function. Returned to WNL, currently 3.8. - previous imaging: Renal US, 04/09/25: Chronic moderate right hydronephrosis Renal Scan NM, 04/10/25: Markedly delayed time to peak activity in the right kidney which could be due to high-grade obstruction with moderate right hydronephrosis despite the presence of an internal ureteral stent on recent prior CT versus severe nonspecific nephropathy of other indeterminate etiology. - trend renal function - nephrology consulted, Archana KOLB. (3) Acute hyperkalemia: Code(s): E87.5 - Hyperkalemia Status: Acute Assessment and Plan: - K 6.0 on admission, K 3.8 on am labs - initial treatment with calcium, insulin/dextrose, and sodium bicarbonate on 05/10 - Placed on tele - Continue to monitor (4) UTI (urinary tract infection): Qualifiers: Hematuria presence: without hematuria Urinary tract infection type: acute cystitis Qualified Code(s): N30.00 - Acute cystitis without hematuria Code(s): N39.0 - Urinary tract infection, site not specified Status: Acute Assessment and Plan: - UA: Turbid, 3+ protein, 3+ blood, 3+ leuk esterase, greater than 100 RBC and WBC, 4+ bacteria, no epithelial cells. - UC grew Enterobacter cloacae with resistance to Augmentin, cefazolin, ceftazidime, and Zosyn - previous micro reviewed: Enterococcus 04/06/25 Enterobacter on 03/10 with resistance to Augmentin, Ancef, and Zosyn. Intermediate to ceftazidime. - started on cefepime on 05/10, transitioned to Unasyn 3 g daily given kidney function, transitioned back to cefepime on 05/12 - antipyretics p.r.n., IV fluids (5) Metabolic acidosis: Code(s): E87.20 - Acidosis, unspecified Status: Acute Assessment and Plan: - CO2 <5 on admission, currently 19 on am labs - started on Bicarb gtt at 75 mL/hr. Hold oral bicarb. - Nephrology following Patient remains alert and oriented. Bicarb improving on bicarb drip. Patient will require oral supplementation at time of discharge. (6) Lymphadenopathy, periauricular: Code(s): R59.0 - Localized enlarged lymph nodes Status: Acute Assessment and Plan: Right periauricular edema with tenderness to palpation started 05/10. No redness, warmth, or associated rash. Fluid seen behind TM on otoscope. DDx includes parotitis, mastoiditis, lymphedema, abscess formation vs other CT soft tissue neck unremarkable US showed echogenic Soft tissue area with vascularity is seen measuring 8.2 x 2.7 x 5 cm suggestive of a lipoma Lipoma unlikely given how quickly the area developed (within 24 hours) Monitor Swelling has improved. Continue to monitor. (7) Anemia: Qualifiers: Anemia type: due to chronic kidney disease Chronic kidney disease stage: unspecified stage Qualified Code(s): N18.9 - Chronic kidney disease, unspecified; D63.1 - Anemia in chronic kidney disease Code(s): D64.9 - Anemia, unspecified Status: Chronic Assessment and Plan: - Hgb 9.1 on admission, previously 7.5 on 04/11 - H/H 8.8/27.3 on am labs - H/H 6.8/22 on 05/11, given pRBC x1. H/H responded appropriately. - transfuse if <7 - trend H&H - presumed anemia secondary to CKD, no signs of active bleeding (8) Hypertension: Qualifiers: Hypertension type: primary hypertension Qualified Code(s): I10 - Essential (primary) hypertension Code(s): I10 - Essential (primary) hypertension Status: Chronic Assessment and Plan: Chronic, continue home medications - Amlodipine 10 mg daily - Blood pressures remain stable, continue to monitor (9) Severe protein-calorie malnutrition: Code(s): E43 - Unspecified severe protein-calorie malnutrition Status: Acute Assessment and Plan: supplement per nutrition Subjective Date/time seen: 05/13/25 09:01 Interval history: 74 year old male with past medical history of CKD, carcinoma of colorectal region (s/p radiation, total colectomy, and partial small-bowel resection), HTN, RLS, HLD, Crohn's disease, kidney stones, nephrectomy (left, 2011), 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 Review of Systems Review of Systems: All systems reviewed & are unremarkable except as noted in HPI and below Exam Narrative: AF HR General: male in no acute respiratory distress who is nontoxic appearing, lying semi recumbent in bed. HEENT: Normocephalic. Atraumatic.Extraocular movement intact. Sclera clear and anicteric. Right periauricular edema improved from yesterday with tenderness to palpation. No redness or warmth. Fluid seen behind TM on otoscope. No saliva expressed on palpation. Chest: Lungs with diminished on auscultation to right > left base. No wheezes or crackles. CV: Heart was regular rate and rhythm. S1/S2. No murmurs, gallops, or rubs. Abd: Abdomen was soft. Nontender. Nondistended. Positive bowel sounds. Neuro: Patient is alert and oriented x4. Speech is clear. Psych: Normal mood and affect. Patient is pleasant and cooperative. Ext: bilateral swelling of the DIP joints to the 2nd and 3rd finger with slight tenderness, without redness or warmth Skin: Warm and dry. No rashes noted. Objective Data Vital Signs Vital Signs: Vital Signs - 24 hr 05/12/25 10:00 05/12/25 12:00 05/12/25 12:00 Temperature 98.5 F Pulse Rate 79 78 Respiratory Rate 18 Blood Pressure 129/57 L Pulse Oximetry 98 Oxygen Delivery Room Air 05/12/25 12:00 05/12/25 14:00 05/12/25 16:00 Temperature 97.9 F Pulse Rate 79 79 72 Respiratory Rate 18 Blood Pressure 129/65 Pulse Oximetry 98 Oxygen Delivery 05/12/25 16:00 05/12/25 16:00 05/12/25 18:00 Temperature Pulse Rate 78 89 Respiratory Rate Blood Pressure Pulse Oximetry Oxygen Delivery Room Air 05/12/25 20:00 05/12/25 20:00 05/12/25 20:00 Temperature 97.7 F Pulse Rate 72 75 Respiratory Rate 18 Blood Pressure 115/56 L Pulse Oximetry 99 Oxygen Delivery Room Air 05/12/25 22:00 05/12/25 23:41 05/13/25 00:00 Temperature 98.0 F Pulse Rate 68 84 Respiratory Rate 16 Blood Pressure 135/68 Pulse Oximetry 99 Oxygen Delivery Room Air 05/13/25 00:00 05/13/25 02:00 05/13/25 04:00 Temperature 98.0 F Pulse Rate 77 70 76 Respiratory Rate 17 Blood Pressure 141/61 H Pulse Oximetry 94 Oxygen Delivery 05/13/25 04:00 05/13/25 04:00 05/13/25 06:00 Temperature Pulse Rate 77 74 Respiratory Rate Blood Pressure Pulse Oximetry Oxygen Delivery Room Air 05/13/25 08:00 Temperature 97.6 F Pulse Rate 94 Respiratory Rate 18 Blood Pressure 156/65 H Pulse Oximetry 99 Oxygen Delivery Intake/Output Intake/Output: Intake & Output 05/10/25 05/11/25 05/12/25 05/13/25 23:59 23:59 23:59 23:59 Intake Total 1050 4450.0 3555 1245 Output Total 300 1725 3250 1200 Balance 750 2725.0 305 45 Meds/Results Medications: Active Medications Generic Name Dose Route Start Last Admin Trade Name Freq PRN Reason Stop Dose Admin Acetaminophen 650 mg 05/10/25 15:29 05/12/25 13:32 Acetaminophen 325 Mg Tablet PO 650 mg Q4H PRN Administration Mild Pain (1-3) or Fever Hydrocodone Bitart/Acetaminophen 1 tab 05/10/25 15:29 Hydrocodone/Acetaminophen (*Crx) 5-325 Mg Tablet PO Q4H PRN Pain Rated 4-6 Amlodipine Besylate 10 mg 05/11/25 09:00 05/12/25 09:16 Amlodipine Besylate 10 Mg Tablet PO 10 mg DAILY KIRSTEN Administration Atorvastatin Calcium 20 mg 05/11/25 09:00 05/12/25 09:16 Atorvastatin 20 Mg Tablet PO 20 mg DAILY KIRSTEN Administration Cyanocobalamin 2,000 mcg 05/11/25 09:00 05/12/25 09:16 Cyanocobalamin 1,000 Mcg Tablet PO 2,000 mcg DAILY KIRSTEN Administration Dextrose 12.5 gm 05/10/25 21:19 Dextrose 50% 25 Gm/50 Ml Syringe IV PUSH PRN PRN Hypoglycemia Protocol Glucagon 1 mg 05/10/25 21:19 Glucagon For Inj 1 Mg Vial IM PRN PRN Hypoglycemia Protocol Glucose 15 gm 05/10/25 21:19 Glucose Oral Gel 15 Gm Of Glucse In 37.5 Gm Tube PO PRN PRN Hypoglycemia Protocol Dextrose 1,000 mls @ 100 mls/hr 05/10/25 21:19 Dextrose 5% 1,000 Ml IVPB PRN PRN Hypoglycemia Protocol Cefepime HCl 1 gm in 50 mls @ 100 mls/hr 05/12/25 16:00 05/13/25 04:30 Maxipime 1 Gm/Ns 50 Ml IVPB Infused Q12H KIRSTEN Infusion Azithromycin 500 mg in 250 mls @ 250 mls/hr 05/12/25 15:00 05/12/25 16:56 Zithromax IVPB Infused Q24H KIRSTEN Infusion Loperamide HCl 2 mg 05/10/25 21:33 Loperamide Hcl 2 Mg Capsule PO Q2H PRN Diarrhea Magnesium Chloride 64 mg 05/11/25 09:00 05/12/25 09:16 Magnesium Chloride 64 Mg Tablet PO 64 mg DAILY KIRSTEN Administration Morphine Sulfate 2 mg 05/10/25 15:29 Morphine Sulfate (*Crx) 2 Mg/Ml Inj IV PUSH Q2H PRN Pain Rated 7-10 Ondansetron HCl 4 mg 05/10/25 15:29 Ondansetron Inj 4 Mg/2 Ml Vial IV PUSH Q4H PRN Nausea Pantoprazole Sodium 40 mg 05/11/25 09:00 05/12/25 09:16 Pantoprazole 40 Mg Tablet PO 40 mg QAM KIRSTEN Administration Ropinirole HCl 3 mg 05/10/25 21:30 05/11/25 21:26 Ropinirole Hcl 1 Mg Tablet PO 3 mg HS KIRSTEN Administration Sitagliptin Phosphate 50 mg 05/11/25 09:00 05/12/25 09:16 Sitagliptin Phosphate 50 Mg Tablet PO 50 mg DAILY KIRSTEN Administration Sodium Bicarbonate 1,300 mg 05/11/25 17:45 05/12/25 16:02 Sodium Bicarbonate Tab 650 Mg Tablet PO 1,300 mg BID KIRSTEN Administration Vitamin D 25 mcg 05/11/25 09:00 05/12/25 09:16 Cholecalciferol (Vitamin D3) 25 Mcg (1,000 Units) Tablet PO 25 mcg DAILY KIRSTEN Administration Radiology Results: ITS Impressions Soft Tissue Neck CT 05/10/25 22:02 IMPRESSION: 1. Right pleural effusion. 2. Atherosclerotic changes of the carotid arteries.Otherwise, Normal CT neck. Chest X-Ray 05/11/25 10:03 Impression: 1: Bibasilar airspace disease may represent atelectasis or pneumonia. Carotid Doppler Study 05/11/25 13:04 IMPRESSION: 1. Less than 50% stenosis in the right internal carotid artery by sonographic criteria. 2. Less than 50% stenosis in the left internal carotid artery by sonographic criteria. Labs Labs: Laboratory Results - last 24 hr 05/12/25 05/13/25 17:53 04:17 WBC 10.7 H RBC 3.08 L Hgb 8.8 L Hct 27.3 L MCV 88.6 MCH 28.6 MCHC 32.2 RDW 15.7 H Plt Count 166 MPV 9.9 Sodium 135 L 136 L Potassium 3.8 3.8 Chloride 102 102 Carbon Dioxide 16 L 19 L Anion Gap 17 H 15 H BUN 98 H D 87 H D Creatinine 5.29 H 5.05 H Estim Creat Clear Calc 10 11 Estimated GFR 11 L 11 L Glucose 223 H 108 Calcium 8.0 L 8.4 Phosphorus 5.5 H Total Bilirubin 0.6 AST 21 ALT 28 Alkaline Phosphatase 97 Total Protein 7.2 Albumin 3.4 L 3.6 Quality VTE Prophylaxis VTE prophylaxis: mechanical ordered
[2025-05-13] MEDS: SITagliptin PHOSPHATE 50 MG TABLET PO (09:34)
[2025-05-13] MEDS: SODIUM BICARBONATE TAB 650 MG TABLET 1300 MG PO (09:35)
[2025-05-13] MEDS: CYANOCOBALAMIN 1,000 MCG TABLET 2000 MCG PO (09:35)
[2025-05-13] MEDS: amLODIPine BESYLATE 10 MG TABLET PO (09:35)
[2025-05-13] MEDS: CHOLECALCIFEROL (VITAMIN D3) 25 MCG (1,000 UNITS) TABLET PO (09:35)
[2025-05-13] MEDS: ACETAMINOPHEN 325 MG TABLET 650 MG PO (09:35)
[2025-05-13] MEDS: MAGNESIUM CHLORIDE 64 MG TABLET PO (09:35)
[2025-05-13] MEDS: PANTOPRAZOLE 40 MG TABLET PO (09:35)
[2025-05-13] MEDS: ATORVASTATIN 20 MG TABLET PO (09:35)
--- NOTE | 2025-05-13 10:17 | P.PNNP_ITS ---
Progress Note: A&P Assessment and Plan (1) Acute kidney injury: Code(s): N17.9 - Acute kidney failure, unspecified Status: Acute Assessment and Plan: * slow improvement noted * as noted by admission creatinine * records reviewed/noted over recent hospitalizations * creatinine did improve to 3.0mg/dl (on 03/09/25) * however, did worsen/rise again given previous bacteremia/infection on February 2025 admission - discharge creatinine was 4.16mg/dl * creatinine on admission in March 2025 was 10.98mg/dl - discharged with a creatinine of 6.45mg/dl; unclear if her kidney function improved to previous baseline following that discharge * admitted this time with a creatinine of 8.2mg/dl * evaluations to date (previous + current hospitalization) noted: * CT of A/P showed hydronephrosis (but ureteral stent in good position) * UA suggestive of infection (see #5) * urine studies non-prerenal * normal CPK * moderate proteinuria * s/p bicarb IVFs * follow trend of repeat labs and UOP (2) Chronic kidney disease, stage IV (severe): Code(s): N18.4 - Chronic kidney disease, stage 4 (severe) Status: Chronic Assessment and Plan: * creatinine was 2.35mg/dl in December 2024 * this places him around CKD stage 3b/stage 4 * likely a result of his nephrectomy, hypertension, vascular disease and age- related change * given recent hospitalizations since January 2025 (for obstruction, infection/sepsis...etc) -- he may have a new baseline... * follows with Dr. Olvin Dixon at [facility] for management of his CKD (3) Hyperkalemia: Code(s): E87.5 - Hyperkalemia Status: Acute Assessment and Plan: * due to MERI/ARF * s/p medical management * follow trend of K+ level (4) Metabolic acidosis: Code(s): E87.20 - Acidosis, unspecified Status: Acute Assessment and Plan: * due to MERI/ARF * quite severe on presentation (CO2 <5) * s/p bicarb fluids (1/2NS + 75MEQ sodium bicarbonate) * on oral bicarbonate now * follow CO2 levels (5) UTI (urinary tract infection): Qualifiers: Hematuria presence: without hematuria Urinary tract infection type: a cute cystitis Qualified Code(s): N30.00 - Acute cystitis without hematuria Code(s): N39.0 - Urinary tract infection, site not specified Status: Acute Assessment and Plan: * admission/outpatient UA highly suggestive: * urine culture results - Enterobacter cloacae * blood culture negative to date * on antibiotics (6) Anemia: Qualifiers: Anemia type: due to chronic kidney disease Chronic kidney disease stage: unspecified stage Qualified Code(s): N18.9 - Chronic kidney disease, unspecified; D63.1 - Anemia in chronic kidney disease Code(s): D64.9 - Anemia, unspecified Status: Chronic Assessment and Plan: * related to underlying CKD likely worsened by MERI * PRBC transfusion per protocol * Epogen while hospitalized * follow trend of H/H (7) Hypertension: Qualifiers: Hypertension type: primary hypertension Qualified Code(s): I10 - Essential (primary) hypertension Code(s): I10 - Essential (primary) hypertension Status: Chronic Assessment and Plan: * reasonable control at this time * follow trend of hemodynamics (8) Hydroureteronephrosis: Code(s): N13.30 - Unspecified hydronephrosis Status: Acute Assessment and Plan: * as noted by previous imaging studies * s/p cystoscopy, right retrograde pyelogram, right ureteral stent insertion (on 02/20) * right ureteral stent removal (on 03/09) * right ureteral stent replacement (on 03/10) as renal function acutely worsened after stent removal * follows with Urology as an outpatient Not opposed to discharge from renal perspective if otherwise medically stable but will need close follow-up for his advanced CKD -- explained this to him and his in detail with regard to follow-up with his primary third shift lieutenant as soon as possible. Discussed with hospitalist JIE Washburn as well. Will continue to follow L Subjective Date/time seen: 05/13/25 10:17 Interval history: Follow-up for acute kidney injury/acute renal failure on chronic kidney disease. Renal function/creatinine/BUN continue to improve with conservative therapy; weaned off bicarb fluid this AM due to improvement in acidosis; continue to make reasonable urine output; no apparent distress noted; no other issues/events overnight or earlier today Exam 2 Narrative: General: elderly but WD/WN male in NAD Heart: normal S1 and S2; no rub Lungs: clear to auscultation Abdomen: soft, nontender, nondistended, positive bowel sounds Extremities: no cyanosis or clubbing; no edema Skin: warm and intact Objective Data Vital Signs Vital Signs: Vital Signs Temp Pulse Resp BP Pulse Ox O2 Del Method 05/13/25 10:00 80 05/13/25 08:00 103 H 05/13/25 08:00 94 18 99 Room Air 05/13/25 08:00 97.6 F 94 18 156/65 H 99 05/13/25 06:00 74 05/13/25 04:00 77 05/13/25 04:00 Room Air 05/13/25 04:00 98.0 F 76 17 141/61 H 94 05/13/25 02:00 70 05/13/25 00:00 77 05/13/25 00:00 Room Air 05/12/25 23:41 98.0 F 84 16 135/68 99 05/12/25 22:00 68 05/12/25 20:00 75 05/12/25 20:00 Room Air 05/12/25 20:00 97.7 F 72 18 115/56 L 99 05/12/25 18:00 89 05/12/25 16:00 78 05/12/25 16:00 Room Air 05/12/25 16:00 97.9 F 72 18 129/65 98 05/12/25 14:00 79 Intake/Output Intake/Output: Intake & Output 05/10/25 05/11/25 05/12/25 05/13/25 23:59 23:59 23:59 23:59 Intake Total 1050 4450.0 3555 1245 Output Total 300 1725 3850 1200 Balance 750 2725.0 -295 45 Meds/Results Medications: Active Medications Generic Name Dose Route Start Last Admin Trade Name Freq PRN Reason Stop Dose Admin Acetaminophen 650 mg 05/10/25 15:29 05/13/25 09:35 Acetaminophen 325 Mg Tablet PO 650 mg Q4H PRN Administration Mild Pain (1-3) or Fever Hydrocodone Bitart/Acetaminophen 1 tab 05/10/25 15:29 Hydrocodone/Acetaminophen (*Crx) 5-325 Mg Tablet PO Q4H PRN Pain Rated 4-6 Amlodipine Besylate 10 mg 05/11/25 09:00 05/13/25 09:35 Amlodipine Besylate 10 Mg Tablet PO 10 mg DAILY KIRSTEN Administration Atorvastatin Calcium 20 mg 05/11/25 09:00 05/13/25 09:35 Atorvastatin 20 Mg Tablet PO 20 mg DAILY KIRSTEN Administration Cyanocobalamin 2,000 mcg 05/11/25 09:00 05/13/25 09:35 Cyanocobalamin 1,000 Mcg Tablet PO 2,000 mcg DAILY KIRSTEN Administration Dextrose 12.5 gm 05/10/25 21:19 Dextrose 50% 25 Gm/50 Ml Syringe IV PUSH PRN PRN Hypoglycemia Protocol Glucagon 1 mg 05/10/25 21:19 Glucagon For Inj 1 Mg Vial IM PRN PRN Hypoglycemia Protocol Glucose 15 gm 05/10/25 21:19 Glucose Oral Gel 15 Gm Of Glucse In 37.5 Gm Tube PO PRN PRN Hypoglycemia Protocol Dextrose 1,000 mls @ 100 mls/hr 05/10/25 21:19 Dextrose 5% 1,000 Ml IVPB PRN PRN Hypoglycemia Protocol Cefepime HCl 1 gm in 50 mls @ 100 mls/hr 05/12/25 16:00 05/13/25 04:30 Maxipime 1 Gm/Ns 50 Ml IVPB Infused Q12H KIRSTEN Infusion Azithromycin 500 mg in 250 mls @ 250 mls/hr 05/12/25 15:00 05/12/25 16:56 Zithromax IVPB Infused Q24H KIRSTEN Infusion Loperamide HCl 2 mg 05/10/25 21:33 Loperamide Hcl 2 Mg Capsule PO Q2H PRN Diarrhea Magnesium Chloride 64 mg 05/11/25 09:00 05/13/25 09:35 Magnesium Chloride 64 Mg Tablet PO 64 mg DAILY KIRSTEN Administration Morphine Sulfate 2 mg 05/10/25 15:29 Morphine Sulfate (*Crx) 2 Mg/Ml Inj IV PUSH Q2H PRN Pain Rated 7-10 Ondansetron HCl 4 mg 05/10/25 15:29 Ondansetron Inj 4 Mg/2 Ml Vial IV PUSH Q4H PRN Nausea Pantoprazole Sodium 40 mg 05/11/25 09:00 05/13/25 09:35 Pantoprazole 40 Mg Tablet PO 40 mg QAM KIRSTEN Administration Ropinirole HCl 3 mg 05/10/25 21:30 05/11/25 21:26 Ropinirole Hcl 1 Mg Tablet PO 3 mg HS KIRSTEN Administration Sitagliptin Phosphate 50 mg 05/11/25 09:00 05/13/25 09:34 Sitagliptin Phosphate 50 Mg Tablet PO 50 mg DAILY KIRSTEN Administration Sodium Bicarbonate 1,300 mg 05/11/25 17:45 05/13/25 09:35 Sodium Bicarbonate Tab 650 Mg Tablet PO 1,300 mg BID KIRSTEN Administration Vitamin D 25 mcg 05/11/25 09:00 05/13/25 09:35 Cholecalciferol (Vitamin D3) 25 Mcg (1,000 Units) Tablet PO 25 mcg DAILY KIRSTEN Administration Radiology Results: ITS Impressions Soft Tissue Neck CT 05/10/25 22:02 IMPRESSION: 1. Right pleural effusion. 2. Atherosclerotic changes of the carotid arteries.Otherwise, Normal CT neck. Chest X-Ray 05/11/25 10:03 Impression: 1: Bibasilar airspace disease may represent atelectasis or pneumonia. Carotid Doppler Study 05/11/25 13:04 IMPRESSION: 1. Less than 50% stenosis in the right internal carotid artery by sonographic criteria. 2. Less than 50% stenosis in the left internal carotid artery by sonographic criteria. Labs Labs: Laboratory Tests 05/13/25 04:17 05/13/25 04:17 Calcium 8.4 Total Bilirubin 0.6 AST 21 ALT 28 Alkaline Phosphatase 97 Total Protein 7.2 Albumin 3.6 Microbiology 05/10/25 14:54 Urine Clean Catch Urine Culture Reflexed - Final Enterobacter cloacae complex
--- NOTE | 2025-05-13 14:02 | P.DS_ITS ---
DS: Admitting Diagnosis Discharge Date 05/14/2025 Admitting Diagnosis sepsis acute on chronic kidney failure acute hyperkalemia UTI metabolic acidosis lymphadenopathy, periauricular anemia htn severe protein calorie malnutrition DS: Discharge Diagnosis Discharge Diagnosis (1) Sepsis: Qualifiers: Acute renal failure type: unspecified Sepsis acute organ dysfunction status: with acute organ dysfunction Sepsis type: sepsis due to unspecified organism Severe sepsis acute organ dysfunction type: acute renal failure Severe sepsis shock status: without septic shock Qualified Code(s): A41.9 - Sepsis, unspecified organism; R65.20 - Severe sepsis without septic shock; N17.9 - Acute kidney failure, unspecified Code(s): A41.9 - Sepsis, unspecified organism Status: Acute (2) Acute on chronic kidney failure: Qualifiers: Acute renal failure type: unspecified Chronic kidney disease stage: unspecified stage Qualified Code(s): N17.9 - Acute kidney failure, unspecified; N18.9 - Chronic kidney disease, unspecified Code(s): N17.9 - Acute kidney failure, unspecified; N18.9 - Chronic kidney disease, unspecified Status: Acute (3) Acute hyperkalemia: Code(s): E87.5 - Hyperkalemia Status: Acute (4) UTI (urinary tract infection): Qualifiers: Hematuria presence: without hematuria Urinary tract infection type: acute cystitis Qualified Code(s): N30.00 - Acute cystitis without hematuria Code(s): N39.0 - Urinary tract infection, site not specified Status: Acute (5) Metabolic acidosis: Code(s): E87.20 - Acidosis, unspecified Status: Acute (6) Lymphadenopathy, periauricular: Code(s): R59.0 - Localized enlarged lymph nodes Status: Acute (7) Anemia: Qualifiers: Anemia type: due to chronic kidney disease Chronic kidney disease stage: unspecified stage Qualified Code(s): N18.9 - Chronic kidney disease, unspecified; D63.1 - Anemia in chronic kidney disease Code(s): D64.9 - Anemia, unspecified Status: Chronic (8) Hypertension: Qualifiers: Hypertension type: primary hypertension Qualified Code(s): I10 - Essential (primary) hypertension Code(s): I10 - Essential (primary) hypertension Status: Chronic (9) Severe protein-calorie malnutrition: Code(s): E43 - Unspecified severe protein-calorie malnutrition Status: Acute DS: Summary Hospital Course Reason for hospitalization: sepsis acute on chronic kidney failure acute hyperkalemia UTI metabolic acidosis lymphadenopathy, periauricular anemia htn severe protein calorie malnutrition Hospital Course: 74 year old male with past medical history of CKD, carcinoma of colorectal region (s/p radiation, total colectomy, and partial small-bowel resection), HTN, RLS, HLD, Crohn's disease, kidney stones, nephrectomy (left, 2012), 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 On admission patient was meeting sepsis criteria. Given sepsis bolus in the ED. Suspected source was UTI and possibly pneumonia. UA concerning for infection. Blood cultures remain NGTD. Started on IV antibiotics at that time. Patient was also noted to be in acute renal failure at that time with hyperkalemia and metabolic acidosis. Nephrology consulted. Patient given calcium, insulin/dextrose, and sodium bicarbonate on 05/10 and potassium returned to normal limits. Remained stable throughout admission. Metabolic acidosis continued to improve. Patient to be discharged on increased dose of sodium bicarb per nephrology. Prior to discharge discussed patient with Nephrology Dr. Magaña. He states from his perspective patient is able to be discharged at this time with follow-up with his primary inventory administrator at [facility]. Patients urine culture grew Enterobacter with resistance to resistance to Augmentin, cefazolin, ceftazidime, and Zosyn. Unable to start patient on the fluoroquinolones given prior rheumatoid like reaction similar to his reaction on the unasyn. Given the restriction on antibiotics patient was started on bactrim (renally dosed) and azithromycin to complete the antibiotic course. Discussed with Nephrology given the severity of his renal function. Per Nephrology they are in agreement with the antibiotics at time of discharge with a blood draw being done in about 5-7 days to reassess kidney function and potassium levels. During admission patient became anemic and required a blood transfusion on 05/11. Anemia likely secondary to ARF. No signs of active bleeding. Following transfusion the H/H remained stable throughout the rest of admission. During admission patient developed Right periauricular edema with tenderness to palpation started 05/10. No redness, warmth, or associated rash. Fluid seen behind TM on otoscope. DDx includes parotitis, mastoiditis, lymphedema, abscess formation vs other. A CT soft tissue neck showed a right pleural effusion and atherosclerotic changes of the carotid arteries, otherwise normal. US showed possible lipoma however given how quickly the edema developed unlikely. Patient remained on antibiotics and the swelling significantly improved prior to discharge and he was no longer endorsing tenderness to the area. Discussed with patient that he needs to monitor and follow up with PCP in regards to the swelling. He stated understanding. Given the soft tissue neck results of atherosclerotic changes a carotid doppler was obtained and showed <50% stenosis of the carotids. Also obtained a chest xr which showed bibasilar airspace disease which may represent atelectasis or pneumonia. Patient remains on antibiotics to complete the course for UTI and pneumonia. Patient had no complaints at time of discharge and stated he felt at baseline with mobility. He denied chest pain, shortness a breath, palpitations, nausea/vomiting, abdominal pain, and dizziness/lightheadedness. He ambulated throughout his room with nursing and states that he is ready to be discharged home at this time. Patient both state they plan to call his inventory administrator on Thursday morning to set up an appointment. Patient discharged home with family in a stable condition. He is to follow up with his primary inventory administrator and his primary care provider in 1 week. Status at Discharge Functional status at discharge: uses cane/walker Time Spent with Patient Time attestation: Total time spent providing and/or coordinating discharge services: Time spent: Greater than 30 minutes Exam Narrative: AF HR 69 RR 18 SpO2 98 BP 103/69 General: male in no acute respiratory distress who is nontoxic appearing, sitting up in bed HEENT: Normocephalic. Atraumatic.Extraocular movement intact. Sclera clear and anicteric. Right periauricular edema significantly improved from yesterday without tenderness to palpation. No redness or warmth. Chest: Lungs with clear on auscultation. No wheezes or crackles. CV: Heart was regular rate and rhythm. S1/S2. No murmurs, gallops, or rubs. Abd: Abdomen was soft. Nontender. Nondistended. Positive bowel sounds. Neuro: Patient is alert and oriented x4. Speech is clear. Psych: Normal mood and affect. Patient is pleasant and cooperative. Ext: bilateral swelling of the DIP joints to the 2nd and 3rd finger has improved and are without tenderness, redness or warmth Skin: Warm and dry. No rashes noted. DS: Data Data Completed and Pending Completed studies during hospitalization: head/neck US carotid doppler chest xr soft tissue neck ct Labs on day of discharge: Labs from last 24 hours 05/13/25 05/12/25 04:17 17:53 WBC 10.7 H RBC 3.08 L Hgb 8.8 L Hct 27.3 L MCV 88.6 MCH 28.6 MCHC 32.2 RDW 15.7 H Plt Count 166 MPV 9.9 Sodium 136 L 135 L Potassium 3.8 3.8 Chloride 102 102 Carbon Dioxide 19 L 16 L Anion Gap 15 H 17 H BUN 87 H D 98 H D Creatinine 5.05 H 5.29 H Estim Creat Clear Calc 11 10 Estimated GFR 11 L 11 L Glucose 108 223 H Calcium 8.4 8.0 L Phosphorus 5.5 H Total Bilirubin 0.6 AST 21 ALT 28 Alkaline Phosphatase 97 Total Protein 7.2 Albumin 3.6 3.4 L Preliminary micro results at discharge 05/10/25 13:26 Blood Culture - Preliminary Blood 05/10/25 13:04 Blood Culture - Preliminary Blood Discharge Plan Discharge Attending physician on discharge: Jadon Head Consulting providers: Hanh Magaña Discharging Clinician: Dipti Washburn Anticipated Discharge Date/Time: 05/13/25 13:31 Patient Disposition: Home Activity: as tolerated Diet: as tolerated and renal Discharge Instructions: Discharge disposition: Patient admitted to the hospital for acute renal failure with elevated potassium Renal function has improved, potassium returned to normal Evaluated by nephrology Continue sodium bicarb 1300 mg twice a day, attached is information on this medication Follow up with your inventory administrator Obtain blood draw in 5-7 days to reassess kidney function and potassium level During admission diagnosed with UTI and pneumonia Take all medications as prescribed even if feeling better Bactrim twice a day, course to be completed on 05/16 azithromycin, course to be completed on 05/14 Attached is information on this medication Eat well balanced meals and stay hydrated Keep active to remain strong Avoid use of diapers or pads Good ambika Care every 2 hours Trend urine output Clean and change dressing to coccyx once daily. Apply Silver gel to wound and cover with Mepilex (foam border). These may be purchased over the counter at any pharmacy. During admission noted to have right sided periauricular swelling which continues to improve Continue to monitor Follow up with primary care provider Monitor blood pressures Take caution while standing, rising, or moving Change positions slowly taking a break between each position change If you standing feel dizzy sit back down and take a break Encouraged to continue with yearly vaccinations Return to the emergency department if he developed sudden shortness of breath, chest pain, nausea, vomiting, upset stomach or intractable diarrhea Return to the emergency department if you develop fever greater than 101.5 Follow-up with the primary care physician within 1-2 weeks Thank you for choosing [facility] for your healthcare needs Patient Instructions: Antibiotic Form, Sulfamethoxazole/Trimethoprim (By mouth), Azithromycin (By mouth), Urinary Tract Infection in Men (DC), Dialysis Nutrition Plan (DC), Pneumonia (DC), End Stage Kidney Disease (DC) Patient Language: Nepali Stand Alone Forms: General Discharge Information Follow-up/Referrals: Benton,Rach KOLB [Other] - 1 Week Hanh Magaña MD [Physician] - Discharge Medications: New sodium bicarbonate 650 mg Tablet 1,300 mg PO BID Qty: 60 0RF sulfamethoxazole-trimethoprim [Bactrim] 400-80 mg tablet 1 tablet PO Q12H Qty: 6 0RF azithromycin 500 mg tablet 500 mg PO DAILY Qty: 1 0RF Continued atorvastatin 20 mg tablet 20 mg PO DAILY ropinirole 3 mg tablet 3 mg PO HS amlodipine 10 mg tablet 10 mg PO DAILY omeprazole 20 mg capsule,delayed release(DR/EC) 20 mg PO DAILY Januvia 50 mg tablet 50 mg PO DAILY Nu-Mag 71.5 mg tablet,delayed release (DR/EC) 71.5 mg PO DAILY loperamide [Anti-Diarrheal (loperamide)] 2 mg capsule 4 mg PO BID cholecalciferol (vitamin D3) 25 mcg (1,000 unit) capsule 25 mcg PO DAILY cyanocobalamin (vitamin B-12) 1,000 mcg capsule 2,000 mcg PO DAILY Discontinued sodium bicarbonate 650 mg tablet 650 mg PO BID 14 Days Qty: 28 0RF Other Ambulatory Orders: Basic Metabolic Panel (Routine) Timeframe: 5 Days Location: Determined by Patient Ordered By: Dipti Washburn Date of admission: 05/11/25 09:43 Primary Care Provider: Benton,Rach KOLB Admitting Provider: Gregg Astudillo Attending physician on admission: Dipti Washburn Condition: Stable Hospitalist MIPS Heart Failure (Exclusion) Patient has history of Heart Transplant or Left Ventricular Assistive Device?: No IF YES, STOP HERE Heart Failure (Qualifier) Patient has current or prior documentation of LVEF less than or equal to 40%, or mod/servere depressed LVSF?: No IF NO, STOP HERE
--- NOTE | 2025-05-13 14:47 | PC.NURSE ---
This RN attempted to take wound photo at discharge. Both cameras (IMU & ICU) did not work. Pt has a 0wmg3ymr8.5cm wound to bony prominence of sacrum. Wound bed is cream in color. Wound had small amount of yellow drainage on dressing. Wound was clean and re-dressed with a small amount of silver gel applied and then a Mepilex border for protection. and pt were instructed on how to clean and care for wound at home. Both state understanding of treatment. Pt discharged home with and supplies to care for wound.
== END 2025-05-13 14:55 | disposition home or self-care (01) | DRG 871 ==
LOC: ANHED 13:35 → ANHIMU 15:56
PROVIDERS: Internal Medicine Nephrology; Student in an Organized Health Care Education/Training Program; Admitting Provider Internal Medicine; Emergency Provider Emergency Medicine; Visit Provider Student in an Organized Health Care Education/Training Program
DX: A41.9 Sepsis, unspecified organism (principal); E43 Unspecified severe protein-calorie malnutrition; J18.9 Pneumonia, unspecified organism; N17.9 Acute kidney failure, unspecified; N39.0 Urinary tract infection, site not specified; E87.21 Acute metabolic acidosis; N18.4 Chronic kidney disease, stage 4 (severe); N13.30 Unspecified hydronephrosis; B96.89 Other specified bacterial agents as the cause of diseases classified elsewhere; Z68.21 Body mass index [BMI] 21.0-21.9, adult; E87.5 Hyperkalemia; R59.0 Localized enlarged lymph nodes; D63.1 Anemia in chronic kidney disease; I12.9 Hypertensive chronic kidney disease with stage 1 through stage 4 chronic kidney disease, or unspecified chronic kidney disease; R73.03 Prediabetes; Z85.038 Personal history of other malignant neoplasm of large intestine; Z90.5 Acquired absence of kidney; G25.81 Restless legs syndrome
CPT/HCPCS: 36415; 36430; 70490; 71045; 76536; 80053; 80069; 81001; 82550; 82570; 82948; 83605; 83735; 84100; 84145; 84156; 84300; 84540; 85014; 85018; 85025; 85027; 85610; 85730; 86704; 86706; 86850; 86900; 86901; 86923; 87040; 87086; 87186; 87340; 93880; 96361; 96366; 96367; 96375; 99285; A9270; G0378; J0295; J0456; J0612; J0692; J1815; J7030; J7050; P9016; P9047; Q5105